=== PATIENT | male | born 1945 | race Caucasian/White ===

== ENCOUNTER 2021-11-10 07:44 | Outpatient (CLI) | payer BC, SELFPAY ==
[2021-11-10 10:20] LABS: Albumin* 4.4 g/dL (3.3-5.0); Chloride* 105 mmol/L (96-114); Potassium* 4.2 mmol/L (3.6-5.1); Sodium* 140 mmol/L (135-149)
[2021-11-10 10:22] LABS: Cholesterol* 131 mg/dL (90-199); Creatinine* 1.5 mg/dL (0.5-1.5); Estimated Glomerular Filt Rate 48 ml/min
[2021-11-10 10:23] LABS: Alanine Aminotransferase* 58 U/L (4-50); Alkaline Phosphatase* 79 U/L (40-150); Aspartate Amino Transferase* 60 U/L (12-35); Bilirubin Total* 0.6 mg/dL (0.1-1.5); Blood Urea Nitrogen* 29 mg/dL (7-30); Carbon Dioxide* 24 mmol/L (20-32); Glucose* 148 mg/dL (60-115); Total Protein* 6.9 g/dL (6.0-8.3); Triglycerides* 225 mg/dL (40-149)
[2021-11-10 10:24] LABS: Calcium* 9.3 mg/dL (8.4-10.6); HDL Cholesterol* 31 mg/dL (>=40); LDL Cholesterol Calculated 55 mg/dL (<100)
[2021-11-10 10:32] LABS: Creatinine Urine 166.5 mg/dL
[2021-11-10 10:36] LABS: Microalbumin Creatinine Ratio 10 mg/g (0-30); Microalbumin Urine 2 mg/dL
== END 2021-11-10 07:45 | disposition home or self-care (01) ==
LOC: NFLDREF 07:45
PROVIDERS: PCP Family Medicine; Visit Provider Family Medicine
DX: E11.9 Type 2 diabetes mellitus without complications (principal); E78.5 Hyperlipidemia, unspecified
CPT/HCPCS: 80053; 80061; 82043; 82570

== ENCOUNTER 2022-02-21 08:51 | Outpatient (CLI) | payer BC, SELFPAY ==
--- OUTSIDE RECORDS SUMMARY | 2022-02-21 09:18 | XMS_ITS | Continuity of Care Document ---
:1945 Author Organization [facility] Care Team Providers Name Role Phone [facility] Unavailable Unavailable Problems Problem Status Onset Date Classification Date Comments Sour ce Reported Influenza due to Active 02/14/2022 Ad ventist other identified [facility] Lauren influe [place] Acute Active 02/14/2022 Muslim respiratory [facility] S imi failure with [place] hypoxia Medications Medication Details Route Status Patient Ordering Order Source Instructions Provider Date Tamiflu 75 mg = 1 Cap, Active 60 oral capsule ORAL, BID, X 022 Christianity ist 5 Day(s), # Health 10 Cap, 0 Lauren Refill(s), [facility], Pharmacy: [id number], 175.24, cm, 02/14/22 17:56:00 PST, Height/Length (cm), 108, kg, 02/14/22 17:56:00 PST, Dose calculation weight (kg) NovoLOG FlexPen 0 Refill(s), Active 60 Maintenance 022 [facility] Semglee 70 mg Active 60 evenings, 0 022 Muslim Refill(s), [facility] Maintenance [place] chlorthalidone = 1 Tab, Active 60 25 mg oral ORAL, DAILY, 022 [facility]is t tablet 1/2 daily, 0 Health Refill(s), [facility] omeprazole 40 mg 1 Cap, ORAL, Active 60 oral delayed DAILY, 0 022 Muslim release capsule Refill(s), Healt h Maintenance [place] fluticasone 50 1 Puff, INH, Active 60 mcg/inh BID, 0 022 Muslim inhalation Refill(s), Health powder Maintenance [place] fenofibrate 145 = 1 Tab, Active 60 mg oral tablet ORAL, DAILY, 022 Adve ntist 0 Refill(s), [facility] Maintenance [place] A/Fish Oil [id number] 0 Refill(s), Active 60 u oral capsule Maintenance 022 Adven tist Health [place] albuterol 2.5 mg, INH, Active 60 [id number], 022 Muslim 0 Refill(s), Health Maintenance [place] Aspir 81 oral = 1 Tab, Active 60 enteric coated ORAL, DAILY, 022 Adve ntist tablet 0 Refill(s), Health Maintenance [place] atorvastatin 10 = 1 Tab, Active 60 mg oral tablet ORAL, DAILY, 022 Adve ntist 0 Refill(s), Health Maintenance [place] Results Order Name Results Value Reference Date Interpretation Comments Laeisha rce Range AutoDiff* Auto 90.5 % 49.4 - 12 H Muslim Neutrophil 72.6 /2021 Health Percent [place] AutoDiff* Auto 9.5 K/uL 2.0 - 6.4 02/16 H Muslim Neutrophil /2021 [facility] Absolute [place] AutoDiff* Auto 4.8 % 18.0 - 02/16 L Muslim Lymphocyte 40.0 /2021 Health Percent [place] AutoDiff* Auto 0.5 K/uL 1.5 - 3.0 02/16 L Muslim Lymphocyte /2021 [facility] [place] AutoDiff* Auto 4.7 % 4.9 - 10.1 02/16 L Muslim Monocyte /2021 Health Percent [place] AutoDiff* Auto 0.5 K/uL 0.3 - 0.8 02/16 NA Muslim Monocyte /2021 [facility] [place] AutoDiff* Auto 0.0 % 0.0 - 5.0 02/16 NA Muslim Eosinophil /2021 Health Percent [place] AutoDiff* Auto 0.0 K/uL 0.0 - 0.4 02/16 NA Muslim Eosinophil /2021 [facility] [place] AutoDiff* Auto 0.0 % 0.2 - 1.2 02/16 L Muslim Basophil Health Percent [place] AutoDiff* Auto 0.0 K/uL 0.0 - 0.1 02/16 NA Muslim Basophil /2021 [facility] [place] AutoDiff* Sex assigned Male 02/16 NA Muslim at Health [place] CBC WBC 10.5 K/uL 3.7 - 10.5 02/16 NA Muslim /2021 [facility] CBC RBC 3.90 M/uL 3.81 - 12 NA Muslim 5.87 /2021 [facility] CBC HGB 11.7 g/dL 12.0 - 12/07 L Muslim 17.9 /2021 [facility] CBC HCT 34.3 % 34.4 - 12 L Muslim 50.2 /2021 [facility] CBC MCV 88.0 fL 80.0 - 12 NA Muslim 99.8 /2021 [facility] CBC MCH 29.9 pg 26.7 - 12/ NA Muslim 34.0 /2021 [facility] CBC MCHC 33.9 g/dL 31.0 - 12 NA Muslim 37.0 /2021 [facility] CBC RDW 15.5 % 12.0 - 12 NA Muslim 15.8 /2021 [facility] CBC PLT 146 K/uL 139 - 422 12 NA Muslim /2021 [facility] CBC MPV 9.00 fL 6.84 - 12 NA Muslim 10.28 /2021 [facility] CBC Sex assigned Male 02/16 NA Muslim at /2021 [facility] CMP Sodium Level 132 MMOL/L 135 - 145 12/07 L Christianity ist /2021 [facility] CMP Potassium 4.1 MMOL/L 3.5 - 5.0 12 NA Muslim Level /2021 [facility] CMP Chloride 101 MMOL/L 101 - 111 12 NA Muslim Level /2021 [facility] CMP CO2/Carbon 22 MMOL/L 24 - 32 12/07 L Muslim Dioxide /2021 [facility] CMP Anion Gap 9.0 5.0 - 15.0 12 NA Muslim /2021 [facility] CMP Glucose, 316 MG/DL - <=200 12/07 H Muslim Random /2021 [facility] CMP BUN 34 MG/DL 8 - 20 12/07 H Muslim /2021 [facility] CMP Creatinine 1.39 MG/DL 0.60 - 12/07 H Muslim 1.30 /2021 [facility] BUN/Creat 24.5 12.0 - 12/07 H Muslim Ratio 20.0 [facility] CMP Osmolality, 284 mOsm/L 12/ NA Muslim Calculated [facility] Calcium 8.6 MG/DL 8.4 - 10.2 02/16 NA Muslim Level [facility] CMP Total 6.6 g/dL 6.4 - 8.3 02/16 NA Muslim Protein /2021 [facility] Albumin 3.5 g/dL 3.2 - 5.5 02/16 NA Muslim Level [facility] CMP Globulin 3.1 g/dL 1.5 - 3.5 02/16 NA Muslim Level /2021 [facility] A/G Ratio 1.1 1.1 - 2.2 02/16 NA Muslim [facility] ALP 35 IU/L 30 - 115 02/16 NA Muslim [facility] ALT 40 IU/L 5 - 36 / H Muslim /2021 [facility] AST 50 IU/L 10 - 42 02/16 H Muslim [facility] Bilirubin, 0.6 MG/DL 0.2 - 1.2 02/16 NA Muslim Total /2021 [facility] GFR - Non 53 >=61 02/16 L Units for Muslim mL/min/1.7 estimated GFR [facility] are [place] mL/min/1.73 [place] square metersInterpr etive note for GFR estimates: Normal: Greater than 60 mL/min/1.73 square meters. Chronic Kidney Disease: Less than 60 mL/min/1.73 square meters. Kidney failure: Less than 15 mL/min/1.73 square meters.Two GFR estimates are provided, one for patients who are (Est. GFR AA), one for all others (Est. GFR Non AA). Please correlate with patient's ethnicity.DIS CLAIMER:GFR estimate is calculated using the Modification of Diet in RenalDisease (MDRD) equation. This calculation is most accurate for GFR's of 60 mL/min/1.73 square meters or less. This calculation has been validated for ages 18 or greater, not for pediatric patients. CMP Sex assigned Male 02/16 NA Muslim at [facility] GFR - 64 >=61 02/16 NA Muslim mL/min/1.7 Health Haitian 3m2 [place] Mg Magnesium 2.2 MG/DL 1.7 - 2.8 02/16 NA Muslim Level /2021 [facility] [place] Mg Sex assigned Male 02/16 NA Muslim at /2021 [facility] [place] Phos Phosphorus 2.8 MG/DL 2.5 - 4.5 02/16 NA Muslim Level /2021 [facility] [place] Phos Sex assigned Male 02/16 NA Muslim at /2021 [facility] [place] AutoDiff* Auto 89.9 % 49.4 - 02/15 H Muslim Neutrophil 72.6 /2021 Health Percent [place] AutoDiff* Auto 8.5 K/uL 2.0 - 6.4 02/15 H Muslim Neutrophil /2021 [facility] [place] AutoDiff* Auto 5.1 % 18.0 - 02/15 L Muslim Lymphocyte 40.0 /2021 Health Percent [place] AutoDiff* Auto 0.5 K/uL 1.5 - 3.0 02/15 L Muslim Lymphocyte /2021 [facility] [place] AutoDiff* Auto 5.0 % 4.9 - 10.1 02/15 NA Muslim Monocyte /2021 Health Percent [place] AutoDiff* Auto 0.5 K/uL 0.3 - 0.8 02/15 NA Muslim Monocyte /2021 [facility] [place] AutoDiff* Auto 0.0 % 0.0 - 5.0 02/15 NA Muslim Eosinophil /2021 Health Percent [place] AutoDiff* Auto 0.0 K/uL 0.0 - 0.4 02/15 NA Muslim Eosinophil /2021 [facility] [place] AutoDiff* Auto 0.0 % 0.2 - 1.2 02/15 L Muslim Basophil /2021 Health Percent [place] AutoDiff* Auto 0.0 K/uL 0.0 - 0.1 02/15 NA Muslim Basophil /2021 [facility] [place] AutoDiff* Sex assigned Male 02/15 NA Muslim at /2021 [facility] [place] CBC WBC 9.4 K/uL 3.7 - 10.5 02/15 NA Muslim /2021 [facility] [place] CBC RBC 3.91 M/uL 3.81 - 02/15 NA Muslim 5.87 /2021 [facility] CBC HGB 11.6 g/dL 12.0 - 12/06 L Muslim 17.9 /2021 [facility] CBC HCT 34.9 % 34.4 - 12 NA Muslim 50.2 /2021 [facility] CBC MCV 89.4 fL 80.0 - 12 NA Muslim 99.8 /2021 [facility] CBC MCH 29.6 pg 26.7 - 12 NA Muslim 34.0 /2021 [facility] CBC MCHC 33.2 g/dL 31.0 - 12 NA Muslim 37.0 /2021 [facility] CBC RDW 15.5 % 12.0 - 12 NA Muslim 15.8 /2021 [facility] CBC PLT 123 K/uL 139 - 422 12/ L Muslim /2021 [facility] CBC MPV 9.30 fL 6.84 - 02/15 NA Muslim 10.28 /2021 [facility] CBC Sex assigned Male 02/15 NA Muslim at /2021 [facility] Sodium Level 136 MMOL/L 135 - 145 12 NA Christianity ist /2021 [facility] CMP Potassium 4.5 MMOL/L 3.5 - 5.0 12 NA Muslim Level /2021 [facility] CMP Chloride 104 MMOL/L 101 - 111 12 NA Muslim Level /2021 [facility] CMP CO2/Carbon 24 MMOL/L 24 - 32 02/15 NA Muslim Dioxide /2021 [facility] Anion Gap 8.0 5.0 - 15.0 12 NA Muslim /2021 [facility] CMP Glucose, 302 MG/DL - <=200 12/ H Muslim Random /2021 [facility] CMP BUN 27 MG/DL 8 - 20 12/06 H Muslim /2021 [facility] CMP Creatinine 1.59 MG/DL 0.60 - 12/ H Muslim 1.30 /2021 [facility] BUN/Creat 17.0 12.0 - 12 NA Muslim Ratio 20.0 /2021 [facility] CMP Osmolality, 288 mOsm/L 12 NA Muslim Calculated /2021 [facility] CMP Calcium 8.7 MG/DL 8.4 - 10.2 02/15 NA Muslim Level /2021 [facility] CMP Total 6.6 g/dL 6.4 - 8.3 02/15 NA Muslim Protein [facility] CMP Albumin 3.6 g/dL 3.2 - 5.5 02/15 NA Muslim Level /2021 [facility] CMP Globulin 3.0 g/dL 1.5 - 3.5 02/15 NA Muslim Level [facility] CMP A/G Ratio 1.2 1.1 - 2.2 02/15 NA Muslim [facility] CMP ALP 36 IU/L 30 - 115 02/15 NA Muslim [facility] ALT 44 IU/L 5 - 36 / H Muslim [facility] AST 58 IU/L 10 - 42 02/15 H Muslim [facility] CMP Bilirubin, 0.5 MG/DL 0.2 - 1.2 02/15 NA Muslim Total [facility] GFR - Non 45 >=61 / L Units for Muslim mL/min/1. estimated GFR [place] [address] are Lauren mL/min/1.73 [place] square metersInterpr etive note for GFR estimates: Normal: Greater than 60 mL/min/1.73 square meters. Chronic Kidney Disease: Less than 60 mL/min/1.73 square meters. Kidney failure: Less than 15 mL/min/1.73 square meters.Two GFR estimates are provided, one for patients who are (Est. GFR AA), one for all others (Est. GFR Non AA). Please correlate with patient's ethnicity.DIS CLAIMER:GFR estimate is calculated using the Modification of Diet in RenalDisease (MDRD) equation. This calculation is most accurate for GFR's of 60 mL/min/1.73 square meters or less. This calculation has been validated for ages 18 or greater, not for pediatric patients. CMP Sex assigned Male 02/15 NA Muslim at [facility] GFR - 55 >=61 12/06 L Muslim mL/min/1.[address] Mg Magnesium 2.0 MG/DL 1.7 - 2.8 02/15 NA Muslim Level /2021 [facility] Mg Sex assigned Male 02/15 NA Muslim at [facility] Phos Phosphorus 2.4 MG/DL 2.5 - 4.5 02/15 L Muslim Level [facility] Phos Sex assigned Male 02/15 NA Muslim at [facility] Lactic Lactic Acid 2.3 MMOL/L 0.5 - 2.2 12/[address] Level /2021 [facility] Lactic Sex assigned Male 02/15 NA Muslim at [facility] Lactic Lactic Acid 2.8 MMOL/L 0.5 - 2.2 12/[address] Level /2021 [facility] Lactic Sex assigned Male 02/14 NA Muslim at [facility] POC G3+ ABG - pH 7.441 7.350 - 02/14 NA Device Code: Muslim Art 7.450 [facility] EDFacility: [place] [address]Location: [place] [address] ERSerial Number: [id number] Code: [id number] Name: Carroll TerrellTiesha e Lot: [id number] POC G3+ ABG - pO2 71 mmHg 80 - 105 /05 L Muslim Art [facility] POC G3+ ABG - pCO2 33 mmHg 35 - 45 /05 L Muslim Art [facility] POC G3+ ABG - HCO3 22.4 MEQ/L 22.0 - 02/14 NA Muslim Art 26.0 [facility] POC G3+ ABG - TCO2 23 MEQ/L 23 - 27 05 NA Muslim Art /2021 [facility] POC G3+ ABG - BE -2.0 MEQ/L -2.0 - 3.0 02/14 NA Muslim Art /2021 [facility] POC G3+ ABG - O2 Sat 95.0 % 95.0 - 02/14 NA Muslim Art 99.0 [facility] POC G3+ BG - PASS 02/14 NA Muslim Art Modified Health Juan Test [place] POC G3+ BG - Site RRAD 02/14 NA Muslim Art [facility] POC G3+ FIO2 28 % 02/14 NA Muslim Art /2021 [facility] [place] POC G3+ BG - O2 NC 02/14 NA Muslim Art Device /2021 [facility] POC G3+ BG - Oxygen 2.0 L/min 02/14 NA Muslim Art Flow /2021 [facility] POC G3+ BG - Patient 22 br/min 02/14 NA Muslim Art Rate /2021 [facility] POC G3+ BG - Pulse 94 % 02/14 NA Muslim Art Oximetry /2021 [facility] POC G3+ Sex assigned Male 02/14 NA Muslim Art at /2021 [facility] CRP CRP 12.60 0.00 - 12 H Muslim C-Reactive MG/DL 0.90 [facility] CRP Sex assigned Male 02/14 NA Muslim at [facility] DDimerQnt D-Dimer, Qnt 0.45 ZZ - <=0.50 02/14 NA Increases in Ad ventist /2021 D-dimer Health [facility] thromboemboli c events can be variable due to localization, extension and age of the thrombus. Therefore, a thromboemboli c event cannot be excluded with certainty solely based on a D-dimer concentration being below the clinical cutoff or within the reference range. Results for D-dimer determination s should, therefore, always be evaluated in conjunction with clinical and other laboratory findings, with additional studies if clinically indicated.In studies of patients with DVT and PE performed elsewhere, the clinical cutoff for excluding thromboemboli c event was a D-dimer value >0.5 mg/L.D-Dimer concentration increases with age and thus, the specificity for DVT and PE exclusion decreases with age. For DVT or PE exclusion, in addition to clinical pretest probability, age adjusted D-Dimer cutoffs are suggested for patients more than 50 years of age.Age adjusted D-Dimer cutoff value (Calculated as follows: age[years] X 12/999) results in equivalent outcomes and no additional false negative findings.Age Cutoff 51 0.51mg/L FEU 55 0.55mg/L FEU 60 0.60mg/L FEU 65 0.65mg/L FEU 70 0.70mg/L FEU Etc. DDimerQnt Sex assigned Male 02/14 NA Muslim at [facility] [place] PCT Procalcitoni 0.47 NG/ML - <=0.50 02/14 NA Christianity ist n Level /2021 [facility] [place] PCT Sex assigned Male 02/14 NA Muslim at /2021 [facility] [place] AutoDiff* Auto 85.8 % 49.4 - 02/14 H Muslim Neutrophil 72.6 /2021 Health Percent [place] AutoDiff* Auto 7.2 K/uL 2.0 - 6.4 02/14 H Muslim Neutrophil /2021 [facility] Absolute [place] AutoDiff* Auto 3.8 % 18.0 - 02/14 L Muslim Lymphocyte 40.0 /2021 Health Percent [place] AutoDiff* Auto 0.3 K/uL 1.5 - 3.0 02/14 L Muslim Lymphocyte /2021 [facility] [place] AutoDiff* Auto 9.4 % 4.9 - 10.1 02/14 NA Muslim Monocyte /2021 Health Percent [place] AutoDiff* Auto 0.8 K/uL 0.3 - 0.8 02/14 NA Muslim Monocyte /2021 [facility] [place] AutoDiff* Auto 0.5 % 0.0 - 5.0 02/14 NA Muslim Eosinophil /2021 Health Percent [place] AutoDiff* Auto 0.0 K/uL 0.0 - 0.4 02/14 NA Muslim Eosinophil /2021 [facility] [place] AutoDiff* Auto 0.5 % 0.2 - 1.2 02/14 NA Muslim Basophil /2021 Health Percent [place] AutoDiff* Auto 0.0 K/uL 0.0 - 0.1 02/14 NA Muslim Basophil /2021 [facility] [place] AutoDiff* Sex assigned Male 02/14 NA Muslim at /2021 [facility] [place] CBC WBC 8.4 K/uL 3.7 - 10.5 02/14 NA Muslim /2021 [facility] [place] CBC RBC 4.24 M/uL 3.81 - 02/14 NA Muslim 5.87 /2021 [facility] [place] CBC HGB 12.6 g/dL 12.0 - 02/14 NA Muslim 17.9 /2021 [facility] [place] CBC HCT 37.7 % 34.4 - 02/14 NA Muslim 50.2 /2021 [facility] CBC MCV 88.9 fL 80.0 - 12 NA Muslim 99.8 /2021 [facility] CBC MCH 29.7 pg 26.7 - 12/ NA Muslim 34.0 /2021 [facility] CBC MCHC 33.3 g/dL 31.0 - 12 NA Muslim 37.0 /2021 [facility] CBC RDW 15.3 % 12.0 - 12 NA Muslim 15.8 /2021 [facility] CBC PLT 138 K/uL 139 - 422 12/05 L Muslim /2021 [facility] CBC MPV 8.60 fL 6.84 - 12 NA Muslim 10.28 /2021 [facility] CBC Sex assigned Male 02/14 NA Muslim at /2021 [facility] Sodium Level 134 MMOL/L 135 - 145 12/05 L Christianity ist /2021 [facility] Potassium 3.6 MMOL/L 3.5 - 5.0 1205 NA Muslim Level /2021 [facility] Chloride 100 MMOL/L 101 - 111 12/05 L Muslim Level /2021 [facility] CMP CO2/Carbon 25 MMOL/L 24 - 32 12/05 NA Muslim Dioxide /2021 [facility] Anion Gap 9.0 5.0 - 15.0 12/05 NA Muslim /2021 [facility] Glucose, 125 MG/DL - <=200 12/05 NA Muslim Random /2021 [facility] BUN 19 MG/DL 8 - 20 12/05 NA Muslim /2021 [facility] Creatinine 1.52 MG/DL 0.60 - 12/05 H Muslim 1.30 /2021 [facility] BUN/Creat 12.5 12.0 - 12 NA Muslim Ratio 20.0 /2021 [facility] CMP Osmolality, 272 mOsm/L 12/05 NA Muslim Calculated /2021 [facility] CMP Calcium 9.1 MG/DL 8.4 - 10.2 1205 NA Muslim Level /2021 [facility] CMP Total 7.2 g/dL 6.4 - 8.3 1205 NA Muslim Protein /2021 [facility] CMP Albumin 4.1 g/dL 3.2 - 5.5 02/14 NA Muslim Level /2021 [facility] CMP Globulin 3.1 g/dL 1.5 - 3.5 02/14 NA Muslim Level /2021 [facility] CMP A/G Ratio 1.3 1.1 - 2.2 02/14 NA Muslim /2021 [facility] CMP ALP 45 IU/L 30 - 115 / NA Muslim /2021 [facility] CMP ALT 53 IU/L 5 - 36 12/05 H Muslim /2021 [facility] CMP AST 79 IU/L 10 - 42 12/05 H Muslim /2021 [facility] CMP Bilirubin, 0.8 MG/DL 0.2 - 1.2 02/14 NA Muslim Total [facility] CMP GFR - Non 48 >=61 12/05 L Units for Muslim mL/min/1. estimated GFR [place] [address] are [place] mL/min/1.73 [place] square metersInterpr etive note for GFR estimates: Normal: Greater than 60 mL/min/1.73 square meters. Chronic Kidney Disease: Less than 60 mL/min/1.73 square meters. Kidney failure: Less than 15 mL/min/1.73 square meters.Two GFR estimates are provided, one for patients who are (Est. GFR AA), one for all others (Est. GFR Non AA). Please correlate with patient's ethnicity.DIS CLAIMER:GFR estimate is calculated using the Modification of Diet in RenalDisease (MDRD) equation. This calculation is most accurate for GFR's of 60 mL/min/1.73 square meters or less. This calculation has been validated for ages 18 or greater, not for pediatric patients. CMP Sex assigned Male 02/14 NA Muslim at /2021 [facility] CMP GFR - 58 >=61 12/05 L Muslim mL/min/1.[address] Lactic WB Lactic Acid 2.17 0.56 - 12 H Muslim WB MMOL/L 1.39 [facility] Lactic WB Sex assigned Male 02/14 NA Muslim at [facility] Trop Troponin I 0.03 NG/ML 0.00 - 02/14 NA 1. Less than Adven tist 0.04 0.04 ng/mL is Health within normal [facility] limits.2. Any [place] cardiac troponin value at or above the 99% upper reference limit of 0.04 ng/mL is an indicator of myocardial damage.3. Serially testing at baseline, 3 and 6 hours is advisable, particularly with low level troponin elevations, for clinical distinction between acute myocardial infarction and other causes of myocardial damage. Trop Sex assigned Male 02/14 NA Muslim at /2021 [facility] C Blood C Blood
<b>Fi 02/14 Performed at: [facility] nal:</b><b [facility] r/>No Health [facility] growth at [facility] 5 Laboratory, days.
[address]
<b>[address], [place] at [place], [place] :</b> [phone],
Male< Laboratory br/> Director: Doc Jones M.D. Culture No growth 02/14 60 Blood at 2 days. /2021 [facility] [id number] SARS-CoV-2 Nasopharyn 02/14 NA [facility] Source geal [facility] [id number] Influenza A Detected Not 02/14 C NOTIFIED TO Meghan Gardner Formerly [facility] Deisy GROVE RN AT [facility] 02/14/2022 [place] 12:13 BY LIVIA MONTALVO.This test is performed using a real-time PCR assay with higher sensitivity and specificity compared to rapid antigen tests. False negative results can occur, especially in patients with lower respiratory tract disease. Per CDC recommendatio n, hospitalized patients with an initial negative influenza PCR test in whom no other etiology can be identified should have further specimens collected for influenza testing and remain on antiviral therapy if clinically appropriate.T hese are the possible results and its corresponding meaning:Influ esmer A Not Detected = Negative test for Influenza A (no Influenza A RNA detected)Infl uenza A Detected = Positive test for Influenza A (Influenza A RNA present)Influ esmer B Not Detected = Negative test for Influenza B (no Influenza A RNA detected)Infl uenza B Detected = Positive test for Influenza B (Influenza B RNA present)Assay Indeterminate = Presence or absence of Influenza A or Influenza B cannot be determined. Re-collection is recommended if clinically indicated [id number] Influenza B Not Not 02/14 NA Assay Muslim Agn Detected Detected performed by [facility] Molecular RT-PCR [place] [id number] SARS-CoV-2 Not Not 02/14 NA Assay Muslim Molecular Detected Detected /2021 performed by [employer] RT-PCRThis [place] test was [place] performed under U.S. Food and Drug Administratio n (FDA) Emergency use Authorization (EUA). This test has been validated but the [facility] review of this validation is pending. [id number] SARS-CoV-2 No 02/14 NA Muslim First test? Health [place] [id number] Health Care No 02/14 NA Muslim Worker? [facility] [place] [id number] SARS-CoV-2 No 02/14 NA Muslim Is the /2021 Health Patient [place] Hospitalized [place] ? [id number] SARS-CoV-2 No 02/14 NA Muslim Is the Health Patient in [facility] ICU? [place] [id number] Patient From No 02/14 NA [facility] t Congregate /2021 Health Area? [place] [id number] Symptomatic Yes 02/14 NA Muslim per CDC? [facility] [place] [id number] SARS-CoV-2 No 02/14 NA Muslim Is the Health Patient [place] ? [place] [id number] Sex assigned Male 02/14 NA Adventis t at /2021 [facility] RSV Molc Respiratory Not Not 02/14 This test is Christianity ist Syncytial Detected Detected performed Health Virus using [place] Molecular real-time PCR [place] with higher sensitivity and specificity compared to rapid antigen tests. RT-PCR testing is recommended by the CDC for evaluation of suspected RSV in older children and adults due to enhanced sensitivity and specificity of the assay.These are the possible results and its corresponding meaning:RSV Not Detected = Negative test for RSV (no RSV RNA detected)RSV Detected = Positive test for RSV (RSV RNA present)Assay Indeterminate = Presence or absence of RSV cannot be determined. Re-collection is recommended if clinically indicated. RSV Molc Sex assigned Male 02/14 NA Muslim at /2021 [facility] [place] Diagnostic Reports Report Value Date Source Chest 1 Vw Portable INDICATION: Shortness of Breath 02/14/2022 [facility] COMPARISON: None. FINDINGS: The lungs are wel l expanded and clear, and the cardiac silhouette and pulmonary vessels appear normal. There is no pulmonary vascular redistribution, pleural effusion, or pneumothorax seen. Signed by: Sean Beverly MD on 02/14/2022 12:11 P M Consultation Notes Results Value Date Source Hospitalist Progress 02/16/2022 60 [facility] ObjectVideo Note Patient: ROGER FREDERICK FIN: [id number] [place] Age: 76 years Legal Sex: Male : 1945 Author: MD Christopher, Wilfredo Basic Information Patient was admitted for respiratory failure 2/2 influenza A Review of Systems Constitutional: Negative. Respiratory: Shortness of breath. Cardiovascular: Negative. Gastrointestinal: Negative. Musculoskeletal: Negative. Integumentary: Negative. Neurologic: Negative. Psychiatric: Negative. Health Status Allergies: Allergic Reactions (Selected) No Known Medication Allergies, Allergies (1) Active Severity Reaction No Known Medication Allergies None Documented Current medications: (Selected) Inpatient Medications Ordered Atrovent: 0.5 mg, INH, Q2H, PRN, Wheezing, NEB A MP, 02/14/22 12:54:00 PST Benadryl: 25 mg, IV PUSH, Q6H, PRN, Itching, INJ , 02/14/22 12:54:00 PST Benadryl: 25 mg, IV PUSH, QBedtime, PRN, Insomni a, INJ, 02/14/22 12:54:00 PST Cepacol Lozenges: = 1 Lozeng e, ORAL, Q4H, PRN, Sore Throat, KATELYN, 02/15/22 17:53:00 PST Dextrose 50% Inj 50 mL: = 25 mL, IV PUSH, As directed, PRN, Blood Glucose, INJ, 02/14/22 12:54:00 PST Dextrose 50% Inj 50 mL: = 50 mL, IV PUSH, As directed, PRN, Blood Glucose, INJ, 02/14/22 12:54:00 PST Dulcolax Laxative: 10 mg, RE CTAL, DAILY, PRN, Constipation, SUPP, 02/14/22 12:54:00 PST K-Phos Neutral: = 1 Tab, ORA L, As directed, PRN, Phosphorus Replacement, TAB, 02/14/22 12:52:00 PST Lovenox: 40 mg, SUBQ, DAILY, Indication = VTE Prophylaxis, INJ, 02/14/22 18:00:00 PST Protonix: 40 mg, ORAL, DAILY, EC TAB, 02/14/22 1 2:54:00 PST SOLU-Medrol: 40 mg, IV PUSH, Q6H, INJ, 02/14/22 18:00:00 PST Tamiflu: 75 mg, ORAL, BID, ORAL SUSP, 02/14/22 2 1:00:00 PST Tylenol: 650 mg, ORAL, Q6H, PRN, Other (see comment), TAB, 02/14/22 12:54:00 PST Tylenol: 650 mg, RECTAL, Q6H , PRN, Other (see comment), SUPP, 02/14/22 12:54:00 PST Zofran: 4 mg, IV PUSH, Q4H, PRN, Nausea/Vomiting , INJ, 02/14/22 12:54:00 PST albuterol-ipratopium 3-0.5 m g/3 mL inh soln (DuoNeb): = 3 mL, INH, QID, NEB AMP, 02/14/22 17:00:00 PST albuterol: 1.25 mg, INH, Q2H, PRN, Wheezing, NEB AMP, 02/14/22 12:54:00 PST aspirin: 81 mg, ORAL, DAILY, EC TAB, 02/14/22 12 :52:00 PST atorvastatin: 10 mg, ORAL, QBedtime, TAB, 21:00:00 PST chlorthalidone 25 mg oral ta blet: chlorthalidone 25 mg oral tablet, = 0.5 Tab, ORAL, DAILY, 02/14/22 12:52:00 PST cloNIDine: 0.1 mg, ORAL, Q6H , PRN, Other (see comment), TAB, 02/14/22 12:54:00 PST docusate-senna 50 mg-8.6 mg oral tablet: = 1 Tab, ORAL, BID, TAB, 02/14/22 21:00:00 PST fenofibrate: 145 mg, ORAL, DAILY, TAB, 02/14/22 12:52:00 PST fluticasone 100 mcg inhalati on powder: = 1 Puff, INH, DAILY, POWDER, 02/14/22 12:52:00 PST glucagon: 1 mg, SUBQ, As dir ected, PRN, Blood Glucose, INJ, 02/14/22 12:54:00 PST insulin lispro Correction Sc julia Med (Body wt 70-100kg): correction scale, SUBQ, AC&Bed, 02/14/22 21:00:00 PST magnesium oxide: 400 mg, ORA L, BID, PRN, Magnesium Replacement, TAB, 02/14/22 12:51:00 PST magnesium sulfate 2 g in SWF I 50 mL: 2 gm = 50 mL, IVPB, [id number], PRN, Magnesium Replacement, IV SOLN, 02/14/22 12:51:00 PST, 50 mL/hr, 60 min potassium bicarbonate-citric acid: 20 mEq, ORAL, As directed, PRN, Potassium Replacement, EFFER TAB, 02/14/22 12:51:00 PST potassium bicarbonate-citric acid: 40 mEq, ORAL, As directed, PRN, Potassium Replacement, EFFER TAB, 02/14/22 12:51:00 PST potassium chloride 10 mEq in SWFI 100 mL: 10 mEq = 100 mL, IVPB, As directed, PRN, Potassium Replacement, IV SOLN, 02/14/22 12:51:00 PST, 100 mL/hr, 60 min sodium chloride 0.9% 1,000 m L: 1,000 mL, IV, Routine, 02/14/22 12:54:00 PST, 70 mL/hr, 14.3 hr, Order Weight 108, kg Documented Medications Documented A/Fish Oil 03035 u oral capsule: 0 Refill(s), Ma intenance Aspir 81 oral enteric coated tablet: = 1 Tab, ORAL, DAILY, 0 Refill(s), Maintenance NovoLOG FlexPen: 0 Refill(s), Maintenance Semglee: 70 mg evenings, 0 Refill(s), Maintenanc e albuterol: 2.5 mg, INH, [id number], 0 Refill(s ), Maintenance atorvastatin 10 mg oral tablet: = 1 Tab, ORAL, DAILY, 0 Refill(s), Maintenance chlorthalidone 25 mg oral ta blet: = 1 Tab, ORAL, DAILY, 1/2 daily, 0 Refill(s), Maintenance fenofibrate 145 mg oral tablet: = 1 Tab, ORAL, DAILY, 0 Refill(s), Maintenance fluticasone 50 mcg/inh inhal ation powder: 1 Puff, INH, BID, 0 Refill(s), Maintenance omeprazole 40 mg oral delaye d release capsule: 1 Cap, ORAL, DAILY, 0 Refill(s), Maintenance, Medications (32) Active Scheduled: (12) albuterol-ipratrop 3-0.5 mg/3 mL Neb Soln 3 mL, INH, QID aspirin 81 mg EC Tab 81 mg 1 EC_Tab, ORAL, DAILY atorvastatin 10 mg Tab 10 mg 1 Tab, ORAL, QBedti me chlorthalidone 25 mg oral tablet 0.5 Tab, ORAL, DAILY docusate-senna 50-8.6 mg Tab 1 Tab, ORAL, BID enoxaparin 40 mg/ 0.4 mL Inj Syringe 40 mg 0.4 m L, SUBQ, DAILY Fenofibrate 145 mg Tab 145 mg 1 Tab, ORAL, DAILY fluticasone furoate 100 mcg/inh 1 Puff, INH, NOEL LY insulin lispro (Admelog) 100 units/mL, 3 mL MDV correction scale, SUBQ, AC&Bed methylPRED sod succ 40 mg/mL Inj 40 mg 1 mL, IV PUSH, Q6H oseltamivir 6 mg/mL Oral Liq 1 mL 75 mg 12.5 mL, ORAL, BID pantoprazole 40 mg EC Tab 40 mg 1 Tab, ORAL, NOEL LY Continuous: (1) sodium chloride 0.9% 1,000 mL 1,000 mL, IV, 70 m L/hr PRN: (19) acetaminophen 325 mg Tab 650 mg 2 ea, ORAL, Q6H acetaminophen 650 mg Supp 650 mg 1 Supp, RECTAL, Q6H albuterol 1.25 mg/3 mL (0.042%) Inh Soln 1.25 mg 3 mL, INH, Q2H benzocaine-cetylpyridinium topical 1 Lozenge, OR AL, Q4H bisacodyl 10 mg Supp 10 mg 1 Supp, RECTAL, DAILY cloNIDine 0.1 mg Tab 0.1 mg 1 Tab, ORAL, Q6H Dextrose 50% Inj 50 mL Syr 25 mL, IV PUSH, As di rected Dextrose 50% Inj 50 mL Syr 50 mL, IV PUSH, As di rected diphenhydrAMINE 50 mg/mL Inj 1 mL SDV 25 mg 0.5 mL, IV PUSH, Q6H diphenhydrAMINE 50 mg/mL Inj 1 mL SDV 25 mg 0.5 mL, IV PUSH, QBedtime glucagon 1 mg Inj SDV 1 mg, SUBQ, As directed ipratropium 0.5mg/2.5 mL (0.02%) Neb Amp 0.5 mg 2.5 mL, INH, Q2H K-Bicarb- citric acid 20 mEq Effer Tab 20 mEq 1 Tab, ORAL, As directed K-Bicarb- citric acid 20 mEq Effer Tab 40 mEq 2 Tab, ORAL, As directed K-phos neutral Tab 1 Tab, ORAL, As directed magnesium Oxide 400 mg Tab 400 mg 1 Tab, ORAL, B ID magnesium sulfate / SWFI 2 gm 50 mL, IVPB, Q12H- Interval ondansetron 2 mg/mL, 2 mL Inj 4 mg 2 mL, IV PUSH , Q4H potassium chloride 10 mEq 100 mL, IVPB, As direc josias Problem list: All Problems Current smoker / [id number] / Confirmed Ineffective breathing pattern / [id number] / Provi sional Manage infection control / [id number] / Provisio nal Physical Examination Vital Signs 02/16/2022 10:25 PST Pulse Oximetry 94 % Pulse oximetry method Continuous Oxygen delivery Room air BP location Left arm 02/16/2022 08:47 PST Peripheral Pulse Rate 88 bp m Normal Pulse Oximetry 95 % Oxygen delivery Room air Oxygen %/FiO2 21 % Normal 02/16/2022 08:37 PST Peripheral Pulse Rate 88 bp m Normal Respiratory rate 20 br/min Normal Pulse Oximetry 95 % Oxygen %/FiO2 21 % Normal 02/16/2022 08:00 PST Temperature (F) 98.0 DegF N ormal Peripheral Pulse Rate 80 bpm Normal Respiratory rate 18 br/min Normal Systolic BP 150 mmHg HI Diastolic BP 78 mmHg Normal Pulse Oximetry 98 % Pulse oximetry method Continuous Oxygen delivery In Error (In Error) Activity with SPO2 monitoring At rest Oxygen flow In Error L/min Normal (In Error) Temp site Oral BP position Lying BP location Left arm Blood Pressure Method Automatic Peripheral pulse site Non-invasive BP device 02/16/2022 05:43 PST Temperature (F) 97.4 DegF N ormal Peripheral Pulse Rate 82 bpm Normal Respiratory rate 20 br/min Normal Systolic BP 153 mmHg HI Diastolic BP 91 mmHg HI Pulse Oximetry 98 % Pulse oximetry method Continuous Oxygen delivery Nasal cannula Temp site Oral BP position Lying BP location Left arm Blood Pressure Method Automatic Peripheral pulse site Non-invasive BP device 02/16/2022 00:53 PST Temperature (F) 97.5 DegF N ormal Peripheral Pulse Rate 87 bpm Normal Respiratory rate 20 br/min Normal Systolic BP 151 mmHg HI Diastolic BP 80 mmHg Normal Pulse Oximetry 97 % Pulse oximetry method Continuous Oxygen delivery Nasal cannula Activity with SPO2 monitoring At rest Oxygen flow 2 L/min Temp site Oral BP position Lying BP location Left arm Blood Pressure Method Automatic Peripheral pulse site Non-invasive BP device 02/15/2022 20:49 PST Temperature (F) 98.6 DegF N ormal Peripheral Pulse Rate 96 bpm Normal Respiratory rate 20 br/min Normal Systolic BP 147 mmHg HI Diastolic BP 78 mmHg Normal Pulse Oximetry 96 % Pulse oximetry method Continuous Oxygen delivery Nasal cannula Activity with SPO2 monitoring At rest Oxygen flow 2 L/min Temp site Oral BP position Lying BP location Left arm Blood Pressure Method Automatic Peripheral pulse site Non-invasive BP device 02/15/2022 20:28 PST Peripheral Pulse Rate 96 bp m Normal Respiratory rate 20 br/min Normal Pulse Oximetry 97 % Oxygen flow 2 L/min Peripheral pulse site Pulse oximetry device 02/15/2022 20:09 PST Peripheral Pulse Rate 91 bp m Normal Respiratory rate 22 br/min HI Pulse Oximetry 96 % Oxygen flow 2 L/min Peripheral pulse site Pulse oximetry device 02/15/2022 16:28 PST Peripheral Pulse Rate 84 bp m Normal Respiratory rate 18 br/min Normal 02/15/2022 16:18 PST Peripheral Pulse Rate 82 bp m Normal Respiratory rate 18 br/min Normal 02/15/2022 15:48 PST Temperature (F) 98.0 DegF N ormal Peripheral Pulse Rate 93 bpm Normal Respiratory rate 16 br/min Normal Systolic BP 142 mmHg HI Diastolic BP 76 mmHg Normal Pulse Oximetry 97 % Pulse oximetry method Continuous Oxygen delivery Nasal cannula Activity with SPO2 monitoring At rest Oxygen flow 2 L/min Temp site Oral BP position Sitting BP location Left arm Blood Pressure Method Automatic Peripheral pulse site Non-invasive BP device 02/15/2022 11:39 PST Peripheral Pulse Rate 84 bp m Normal Respiratory rate 18 br/min Normal 02/15/2022 11:29 PST Peripheral Pulse Rate 82 bp m Normal Respiratory rate 18 br/min Normal Pulse Oximetry 95 % Oxygen delivery Nasal cannula Oxygen flow 2 L/min 02/15/2022 11:21 PST Temperature (F) 98.4 DegF N ormal Peripheral Pulse Rate 87 bpm Normal Respiratory rate 15 br/min Normal Systolic BP 145 mmHg HI Diastolic BP 76 mmHg Normal Pulse Oximetry 97 % Pulse oximetry method Continuous Oxygen delivery Nasal cannula Activity with SPO2 monitoring At rest Oxygen flow 2 L/min Temp site Oral BP position Sitting BP location Right arm Blood Pressure Method Automatic Peripheral pulse site Non-invasive BP device 02/15/2022 10:59 PST Pulse Oximetry 93 % Pulse oximetry method Continuous Oxygen delivery Nasal cannula Activity with SPO2 monitoring At rest Oxygen flow 2 L/min BP location Right arm 02/15/2022 09:00 PST Pulse Oximetry 88 % <LLOW Pulse oximetry method Continuous Oxygen delivery Room air BP position Standing BP location Right arm 02/15/2022 08:00 PST Oxygen delivery Nasal cannu la Oxygen flow 2 L/min 02/15/2022 07:50 PST Temperature (F) 97.9 DegF N ormal Peripheral Pulse Rate 90 bpm Normal Respiratory rate 17 br/min Normal Systolic BP 145 mmHg HI Diastolic BP 77 mmHg Normal Pulse Oximetry 96 % Pulse oximetry method Continuous Oxygen delivery Nasal cannula Activity with SPO2 monitoring At rest Oxygen flow 2 L/min Temp site Oral BP position Lying BP location Right arm Blood Pressure Method Automatic Peripheral pulse site Non-invasive BP device 02/15/2022 07:44 PST Peripheral Pulse Rate 82 bp m Normal Respiratory rate 18 br/min Normal 02/15/2022 07:35 PST Pulse Oximetry 95 % Oxygen delivery Room air 02/15/2022 07:34 PST Peripheral Pulse Rate 80 bp m Normal Respiratory rate 18 br/min Normal 02/15/2022 05:13 PST Temperature (F) 98 DegF Nor mal Peripheral Pulse Rate 76 bpm Normal Respiratory rate 18 br/min Normal Systolic BP 132 mmHg Normal Diastolic BP 74 mmHg Normal Pulse Oximetry 94 % Pulse oximetry method Continuous Oxygen delivery CPAP/NIPPV Activity with SPO2 monitoring At rest Oxygen flow 2 L/min Temp site Oral BP position Lying BP location Right arm Blood Pressure Method Automatic Peripheral pulse site Non-invasive BP device 02/15/2022 00:40 PST Temperature (F) 97.7 DegF N ormal Peripheral Pulse Rate 71 bpm Normal Respiratory rate 20 br/min Normal Systolic BP 154 mmHg HI Diastolic BP 81 mmHg Normal Pulse Oximetry 94 % Pulse oximetry method Continuous Oxygen delivery CPAP/NIPPV (Modified) Activity with SPO2 monitoring At rest Oxygen flow 2 L/min Temp site Oral BP position Lying BP location Right arm Peripheral pulse site Non-invasive BP device Vital Signs (last 24 hrs)___ __ Last Charted Minimum Maximum Temp(?F) 98.0 (FEB 16 08:00 PST) 97.4 (FEB 16 05:43 PST) 98.6 (FEB 15 20:49 PST) Heart Rate 88 (FEB 16 08:47 PST) 80 (FEB 16 08:0 0 PST) 96 (FEB 15 20:28 PST) Resp Rate 20 (FEB 16 08:37 PST) 15 (FEB 15 11:21 PST) H 22 (FEB 15 20:09 PST) SBP H 150 (FEB 16 08:00 PST) H 142 (FEB 15 15:48 PST) H 153 (FEB 16 05:43 PST) DBP 78 (FEB 16 08:00 PST) 76 (FEB 15 11:21 PST) H 91 (FEB 16 05:43 PST) SpO2 94 (FEB 16 10:25 PST) 93 (FEB 15 10:59 PST) 98 (FEB 16 05:43 PST) OXYFIO2 21 (FEB 16 08:47 PST) 21 (FEB 16 08:[address]) 21 (FEB 16 08:37 PST) OXYFLOW 2 (FEB 16 00:53 PST) 2 (FEB 15 10:59 PST ) 2 (FEB 15 10:59 PST) OXYDELIVERY Room air Nasal Nasal (FEB 16 10:25 PST) (FEB 15 10:59 PST) (FEB 15 0:59 PST) Measurements from flowsheet : Measurements 02/16/2022 06:00 PST Weight (kg) 108.5 kg Weight measured method Bed scale 02/15/2022 06:00 PST Weight (kg) 109.9 kg Weight measured method Bed scale General: No acute distress. Neck: Supple. Respiratory: Breath sounds are equal. Cardiovascular: Normal rate, Regular rhythm, No murmur. Gastrointestinal: Soft, Non-tender, Non-distende d. Genitourinary: No costovertebral angle tendernes s. Musculoskeletal Normal range of motion. Neurologic: No focal deficits. Psychiatric: Cooperative. Review / Management Results review: Labs (Last four charted values) WBC 10.5 (FEB 16) 9.4 (FEB 15) 8.4 (FEB 14) Hgb L 11.7 (FEB 16) L 11.6 (FEB 15) 12.6 (FEB 14 ) Hct L 34.3 (FEB 16) 34.9 (FEB 15) 37.7 (FEB 14) Plt 146 (FEB 16) L 123 (FEB 15) L 138 (FEB 14) Na L 132 (FEB 16) 136 (FEB 15) L 134 (FEB 14) K 4.1 (FEB 16) 4.5 (FEB 15) 3.6 (FEB 14) CO2 L 22 (FEB 16) 24 (FEB 15) 25 (FEB 14) Cl 101 (FEB 16) 104 (FEB 15) L 100 (FEB 14) Cr H 1.39 (FEB 16) H 1.59 (FEB 15) H 1.52 (Feb) BUN H 34 (FEB 16) H 27 (FEB 15) 19 (FEB 14) Glucose Random H 316 (FEB 16) H 302 (FEB 15) 125 (FEB 14) Mg 2.2 (FEB 16) 2.0 (FEB 15) Phos 2.8 (FEB 16) L 2.4 (FEB 15) Ca 8.6 (FEB 16) 8.7 (FEB 15) 9.1 (FEB 14) . Impression and Plan #Acute hypoxemic respiratory failure #Influenza A Tele , stable Tamiflu 75 mg twice daily DuoNeb breathing treatments Systemic corticosteroids On RA Pulmonology consult noted #Hypertension Continue chlorthalidone 25 mg half tab daily Maintain BP control, as needed medication availa ble #Hyperlipidemia Continue fenofibrate 145 mg daily #Type 2 diabetes mellitus Fingerstick blood glucose Insulin per sliding scale Consistent carbohydrate diet #Gastroesophageal reflux disease Continue Protonix 40 mg daily #Asthma Continue fluticasone 50 mcg inhalation 1 puff tw ice daily Maintain adequate oxygenation, O2 as needed #Obstructive sleep apnea Continue CPAP at night PUD/VTE prophylaxis, Protonix, Lovenox Prognosis: GUARDED and will depend to patient?s response to treatment DC home soon Electronically signed by: NikjoMD sierra Rabin Signed on: 16-Feb-2022 10:32 PST Hospitalist Progress 02/16/2022 [facility] Note Patient: ROGER FREDERICK FIN: [id number] [place] Age: 76 years Legal Sex: Male : 1945 Author: MD White Rabin Basic Information Patient was admitted for respiratory failure 2/2 influenza A Review of Systems Constitutional: Negative. Respiratory: Shortness of breath. Cardiovascular: Negative. Gastrointestinal: Negative. Musculoskeletal: Negative. Integumentary: Negative. Neurologic: Negative. Psychiatric: Negative. Health Status Allergies: Allergic Reactions (Selected) No Known Medication Allergies, Allergies (1) Active Severity Reaction No Known Medication Allergies None Documented Current medications: (Selected) Inpatient Medications Ordered Atrovent: 0.5 mg, INH, Q2H, PRN, Wheezing, NEB A MP, 02/14/22 12:54:00 PST Benadryl: 25 mg, IV PUSH, Q6H, PRN, Itching, INJ , 02/14/22 12:54:00 PST Benadryl: 25 mg, IV PUSH, QBedtime, PRN, Insomni a, INJ, 02/14/22 12:54:00 PST Cepacol Lozenges: = 1 Lozeng e, ORAL, Q4H, PRN, Sore Throat, KATELYN, 02/15/22 17:53:00 PST Dextrose 50% Inj 50 mL: = 25 mL, IV PUSH, As directed, PRN, Blood Glucose, INJ, 02/14/22 12:54:00 PST Dextrose 50% Inj 50 mL: = 50 mL, IV PUSH, As directed, PRN, Blood Glucose, INJ, 02/14/22 12:54:00 PST Dulcolax Laxative: 10 mg, RE CTAL, DAILY, PRN, Constipation, SUPP, 02/14/22 12:54:00 PST K-Phos Neutral: = 1 Tab, ORA L, As directed, PRN, Phosphorus Replacement, TAB, 02/14/22 12:52:00 PST Lovenox: 40 mg, SUBQ, DAILY, Indication = VTE Prophylaxis, INJ, 02/14/22 18:00:00 PST Protonix: 40 mg, ORAL, DAILY, EC TAB, 02/14/22 1 2:54:00 PST SOLU-Medrol: 40 mg, IV PUSH, Q6H, INJ, 02/14/22 18:00:00 PST Tamiflu: 75 mg, ORAL, BID, ORAL SUSP, 02/14/22 2 1:00:00 PST Tylenol: 650 mg, ORAL, Q6H, PRN, Other (see comment), TAB, 02/14/22 12:54:00 PST Tylenol: 650 mg, RECTAL, Q6H , PRN, Other (see comment), SUPP, 02/14/22 12:54:00 PST Zofran: 4 mg, IV PUSH, Q4H, PRN, Nausea/Vomiting , INJ, 02/14/22 12:54:00 PST albuterol-ipratopium 3-0.5 m g/3 mL inh soln (DuoNeb): = 3 mL, INH, QID, NEB AMP, 02/14/22 17:00:00 PST albuterol: 1.25 mg, INH, Q2H, PRN, Wheezing, NEB AMP, 02/14/22 12:54:00 PST aspirin: 81 mg, ORAL, DAILY, EC TAB, 02/14/22 12 :52:00 PST atorvastatin: 10 mg, ORAL, QBedtime, TAB, 21:00:00 PST chlorthalidone 25 mg oral ta blet: chlorthalidone 25 mg oral tablet, = 0.5 Tab, ORAL, DAILY, 02/14/22 12:52:00 PST cloNIDine: 0.1 mg, ORAL, Q6H , PRN, Other (see comment), TAB, 02/14/22 12:54:00 PST docusate-senna 50 mg-8.6 mg oral tablet: = 1 Tab, ORAL, BID, TAB, 02/14/22 21:00:00 PST fenofibrate: 145 mg, ORAL, DAILY, TAB, 02/14/22 12:52:00 PST fluticasone 100 mcg inhalati on powder: = 1 Puff, INH, DAILY, POWDER, 02/14/22 12:52:00 PST glucagon: 1 mg, SUBQ, As dir ected, PRN, Blood Glucose, INJ, 02/14/22 12:54:00 PST insulin lispro Correction Sc julia Med (Body wt 70-100kg): correction scale, SUBQ, AC&Bed, 02/14/22 21:00:00 PST magnesium oxide: 400 mg, ORA L, BID, PRN, Magnesium Replacement, TAB, 02/14/22 12:51:00 PST magnesium sulfate 2 g in SWF I 50 mL: 2 gm = 50 mL, IVPB, [id number], PRN, Magnesium Replacement, IV SOLN, 02/14/22 12:51:00 PST, 50 mL/hr, 60 min potassium bicarbonate-citric acid: 20 mEq, ORAL, As directed, PRN, Potassium Replacement, EFFER TAB, 02/14/22 12:51:00 PST potassium bicarbonate-citric acid: 40 mEq, ORAL, As directed, PRN, Potassium Replacement, EFFER TAB, 02/14/22 12:51:00 PST potassium chloride 10 mEq in SWFI 100 mL: 10 mEq = 100 mL, IVPB, As directed, PRN, Potassium Replacement, IV SOLN, 02/14/22 12:51:00 PST, 100 mL/hr, 60 min sodium chloride 0.9% 1,000 m L: 1,000 mL, IV, Routine, 02/14/22 12:54:00 PST, 70 mL/hr, 14.3 hr, Order Weight 108, kg Documented Medications Documented A/Fish Oil 55263 u oral capsule: 0 Refill(s), Ma intenance Aspir 81 oral enteric coated tablet: = 1 Tab, ORAL, DAILY, 0 Refill(s), Maintenance NovoLOG FlexPen: 0 Refill(s), Maintenance Semglee: 70 mg evenings, 0 Refill(s), Maintenanc e albuterol: 2.5 mg, INH, [id number], 0 Refill(s ), Maintenance atorvastatin 10 mg oral tablet: = 1 Tab, ORAL, DAILY, 0 Refill(s), Maintenance chlorthalidone 25 mg oral ta blet: = 1 Tab, ORAL, DAILY, 1/2 daily, 0 Refill(s), Maintenance fenofibrate 145 mg oral tablet: = 1 Tab, ORAL, DAILY, 0 Refill(s), Maintenance fluticasone 50 mcg/inh inhal ation powder: 1 Puff, INH, BID, 0 Refill(s), Maintenance omeprazole 40 mg oral delaye d release capsule: 1 Cap, ORAL, DAILY, 0 Refill(s), Maintenance, Medications (32) Active Scheduled: (12) albuterol-ipratrop 3-0.5 mg/3 mL Neb Soln 3 mL, INH, QID aspirin 81 mg EC Tab 81 mg 1 EC_Tab, ORAL, DAILY atorvastatin 10 mg Tab 10 mg 1 Tab, ORAL, QBedti me chlorthalidone 25 mg oral tablet 0.5 Tab, ORAL, DAILY docusate-senna 50-8.6 mg Tab 1 Tab, ORAL, BID enoxaparin 40 mg/ 0.4 mL Inj Syringe 40 mg 0.4 m L, SUBQ, DAILY Fenofibrate 145 mg Tab 145 mg 1 Tab, ORAL, DAILY fluticasone furoate 100 mcg/inh 1 Puff, INH, NOEL LY insulin lispro (Admelog) 100 units/mL, 3 mL MDV correction scale, SUBQ, AC&Bed methylPRED sod succ 40 mg/mL Inj 40 mg 1 mL, IV PUSH, Q6H oseltamivir 6 mg/mL Oral Liq 1 mL 75 mg 12.5 mL, ORAL, BID pantoprazole 40 mg EC Tab 40 mg 1 Tab, ORAL, NOEL LY Continuous: (1) sodium chloride 0.9% 1,000 mL 1,000 mL, IV, 70 m L/hr PRN: (19) acetaminophen 325 mg Tab 650 mg 2 ea, ORAL, Q6H acetaminophen 650 mg Supp 650 mg 1 Supp, RECTAL, Q6H albuterol 1.25 mg/3 mL (0.042%) Inh Soln 1.25 mg 3 mL, INH, Q2H benzocaine-cetylpyridinium topical 1 Lozenge, OR AL, Q4H bisacodyl 10 mg Supp 10 mg 1 Supp, RECTAL, DAILY cloNIDine 0.1 mg Tab 0.1 mg 1 Tab, ORAL, Q6H Dextrose 50% Inj 50 mL Syr 25 mL, IV PUSH, As di rected Dextrose 50% Inj 50 mL Syr 50 mL, IV PUSH, As di rected diphenhydrAMINE 50 mg/mL Inj 1 mL SDV 25 mg 0.5 mL, IV PUSH, Q6H diphenhydrAMINE 50 mg/mL Inj 1 mL SDV 25 mg 0.5 mL, IV PUSH, QBedtime glucagon 1 mg Inj SDV 1 mg, SUBQ, As directed ipratropium 0.5mg/2.5 mL (0.02%) Neb Amp 0.5 mg 2.5 mL, INH, Q2H K-Bicarb- citric acid 20 mEq Effer Tab 20 mEq 1 Tab, ORAL, As directed K-Bicarb- citric acid 20 mEq Effer Tab 40 mEq 2 Tab, ORAL, As directed K-phos neutral Tab 1 Tab, ORAL, As directed magnesium Oxide 400 mg Tab 400 mg 1 Tab, ORAL, B ID magnesium sulfate / SWFI 2 gm 50 mL, IVPB, Q12H- Interval ondansetron 2 mg/mL, 2 mL Inj 4 mg 2 mL, IV PUSH , Q4H potassium chloride 10 mEq 100 mL, IVPB, As direc josias Problem list: All Problems Current smoker / [id number] / Confirmed Ineffective breathing pattern / [id number] / Provi sional Manage infection control / [id number] / Provisio nal Physical Examination Vital Signs 02/16/2022 10:25 PST Pulse Oximetry 94 % Pulse oximetry method Continuous Oxygen delivery Room air BP location Left arm 02/16/2022 08:47 PST Peripheral Pulse Rate 88 bp m Normal Pulse Oximetry 95 % Oxygen delivery Room air Oxygen %/FiO2 21 % Normal 02/16/2022 08:37 PST Peripheral Pulse Rate 88 bp m Normal Respiratory rate 20 br/min Normal Pulse Oximetry 95 % Oxygen %/FiO2 21 % Normal 02/16/2022 08:00 PST Temperature (F) 98.0 DegF N ormal Peripheral Pulse Rate 80 bpm Normal Respiratory rate 18 br/min Normal Systolic BP 150 mmHg HI Diastolic BP 78 mmHg Normal Pulse Oximetry 98 % Pulse oximetry method Continuous Oxygen delivery In Error (In Error) Activity with SPO2 monitoring At rest Oxygen flow In Error L/min Normal (In Error) Temp site Oral BP position Lying BP location Left arm Blood Pressure Method Automatic Peripheral pulse site Non-invasive BP device 02/16/2022 05:43 PST Temperature (F) 97.4 DegF N ormal Peripheral Pulse Rate 82 bpm Normal Respiratory rate 20 br/min Normal Systolic BP 153 mmHg HI Diastolic BP 91 mmHg HI Pulse Oximetry 98 % Pulse oximetry method Continuous Oxygen delivery Nasal cannula Temp site Oral BP position Lying BP location Left arm Blood Pressure Method Automatic Peripheral pulse site Non-invasive BP device 02/16/2022 00:53 PST Temperature (F) 97.5 DegF N ormal Peripheral Pulse Rate 87 bpm Normal Respiratory rate 20 br/min Normal Systolic BP 151 mmHg HI Diastolic BP 80 mmHg Normal Pulse Oximetry 97 % Pulse oximetry method Continuous Oxygen delivery Nasal cannula Activity with SPO2 monitoring At rest Oxygen flow 2 L/min Temp site Oral BP position Lying BP location Left arm Blood Pressure Method Automatic Peripheral pulse site Non-invasive BP device 02/15/2022 20:49 PST Temperature (F) 98.6 DegF N ormal Peripheral Pulse Rate 96 bpm Normal Respiratory rate 20 br/min Normal Systolic BP 147 mmHg HI Diastolic BP 78 mmHg Normal Pulse Oximetry 96 % Pulse oximetry method Continuous Oxygen delivery Nasal cannula Activity with SPO2 monitoring At rest Oxygen flow 2 L/min Temp site Oral BP position Lying BP location Left arm Blood Pressure Method Automatic Peripheral pulse site Non-invasive BP device 02/15/2022 20:28 PST Peripheral Pulse Rate 96 bp m Normal Respiratory rate 20 br/min Normal Pulse Oximetry 97 % Oxygen flow 2 L/min Peripheral pulse site Pulse oximetry device 02/15/2022 20:09 PST Peripheral Pulse Rate 91 bp m Normal Respiratory rate 22 br/min HI Pulse Oximetry 96 % Oxygen flow 2 L/min Peripheral pulse site Pulse oximetry device 02/15/2022 16:28 PST Peripheral Pulse Rate 84 bp m Normal Respiratory rate 18 br/min Normal 02/15/2022 16:18 PST Peripheral Pulse Rate 82 bp m Normal Respiratory rate 18 br/min Normal 02/15/2022 15:48 PST Temperature (F) 98.0 DegF N ormal Peripheral Pulse Rate 93 bpm Normal Respiratory rate 16 br/min Normal Systolic BP 142 mmHg HI Diastolic BP 76 mmHg Normal Pulse Oximetry 97 % Pulse oximetry method Continuous Oxygen delivery Nasal cannula Activity with SPO2 monitoring At rest Oxygen flow 2 L/min Temp site Oral BP position Sitting BP location Left arm Blood Pressure Method Automatic Peripheral pulse site Non-invasive BP device 02/15/2022 11:39 PST Peripheral Pulse Rate 84 bp m Normal Respiratory rate 18 br/min Normal 02/15/2022 11:29 PST Peripheral Pulse Rate 82 bp m Normal Respiratory rate 18 br/min Normal Pulse Oximetry 95 % Oxygen delivery Nasal cannula Oxygen flow 2 L/min 02/15/2022 11:21 PST Temperature (F) 98.4 DegF N ormal Peripheral Pulse Rate 87 bpm Normal Respiratory rate 15 br/min Normal Systolic BP 145 mmHg HI Diastolic BP 76 mmHg Normal Pulse Oximetry 97 % Pulse oximetry method Continuous Oxygen delivery Nasal cannula Activity with SPO2 monitoring At rest Oxygen flow 2 L/min Temp site Oral BP position Sitting BP location Right arm Blood Pressure Method Automatic Peripheral pulse site Non-invasive BP device 02/15/2022 10:59 PST Pulse Oximetry 93 % Pulse oximetry method Continuous Oxygen delivery Nasal cannula Activity with SPO2 monitoring At rest Oxygen flow 2 L/min BP location Right arm 02/15/2022 09:00 PST Pulse Oximetry 88 % <LLOW Pulse oximetry method Continuous Oxygen delivery Room air BP position Standing BP location Right arm 02/15/2022 08:00 PST Oxygen delivery Nasal cannu la Oxygen flow 2 L/min 02/15/2022 07:50 PST Temperature (F) 97.9 DegF N ormal Peripheral Pulse Rate 90 bpm Normal Respiratory rate 17 br/min Normal Systolic BP 145 mmHg HI Diastolic BP 77 mmHg Normal Pulse Oximetry 96 % Pulse oximetry method Continuous Oxygen delivery Nasal cannula Activity with SPO2 monitoring At rest Oxygen flow 2 L/min Temp site Oral BP position Lying BP location Right arm Blood Pressure Method Automatic Peripheral pulse site Non-invasive BP device 02/15/2022 07:44 PST Peripheral Pulse Rate 82 bp m Normal Respiratory rate 18 br/min Normal 02/15/2022 07:35 PST Pulse Oximetry 95 % Oxygen delivery Room air 02/15/2022 07:34 PST Peripheral Pulse Rate 80 bp m Normal Respiratory rate 18 br/min Normal 02/15/2022 05:13 PST Temperature (F) 98 DegF Nor mal Peripheral Pulse Rate 76 bpm Normal Respiratory rate 18 br/min Normal Systolic BP 132 mmHg Normal Diastolic BP 74 mmHg Normal Pulse Oximetry 94 % Pulse oximetry method Continuous Oxygen delivery CPAP/NIPPV Activity with SPO2 monitoring At rest Oxygen flow 2 L/min Temp site Oral BP position Lying BP location Right arm Blood Pressure Method Automatic Peripheral pulse site Non-invasive BP device 02/15/2022 00:40 PST Temperature (F) 97.7 DegF N ormal Peripheral Pulse Rate 71 bpm Normal Respiratory rate 20 br/min Normal Systolic BP 154 mmHg HI Diastolic BP 81 mmHg Normal Pulse Oximetry 94 % Pulse oximetry method Continuous Oxygen delivery CPAP/NIPPV (Modified) Activity with SPO2 monitoring At rest Oxygen flow 2 L/min Temp site Oral BP position Lying BP location Right arm Peripheral pulse site Non-invasive BP device Vital Signs (last 24 hrs)___ __ Last Charted Minimum Maximum Temp(?F) 98.0 (FEB 16 08:00 PST) 97.4 (FEB 16 05:43 PST) 98.6 (FEB 15 20:49 PST) Heart Rate 88 (FEB 16 08:47 PST) 80 (FEB 16 08:0 0 PST) 96 (FEB 15 20:28 PST) Resp Rate 20 (FEB 16 08:37 PST) 15 (FEB 15 11:21 PST) H 22 (FEB 15 20:09 PST) SBP H 150 (FEB 16 08:00 PST) H 142 (FEB 15 15:48 PST) H 153 (FEB 16 05:43 PST) DBP 78 (FEB 16 08:00 PST) 76 (FEB 15 11:21 PST) H 91 (FEB 16 05:43 PST) SpO2 94 (FEB 16 10:25 PST) 93 (FEB 15 10:59 PST) 98 (FEB 16 05:43 PST) OXYFIO2 21 (FEB 16 08:47 PST) 21 (FEB 16 08:[address]) 21 (FEB 16 08:37 PST) OXYFLOW 2 (FEB 16 00:53 PST) 2 (FEB 15 10:59 PST ) 2 (FEB 15 10:59 PST) OXYDELIVERY Room air Nasal Nasal (FEB 16 10:25 PST) (FEB 15 10:59 PST) (FEB 15 0:59 PST) Measurements from flowsheet : Measurements 02/16/2022 06:00 PST Weight (kg) 108.5 kg Weight measured method Bed scale 02/15/2022 06:00 PST Weight (kg) 109.9 kg Weight measured method Bed scale General: No acute distress. Neck: Supple. Respiratory: Breath sounds are equal. Cardiovascular: Normal rate, Regular rhythm, No murmur. Gastrointestinal: Soft, Non-tender, Non-distende d. Genitourinary: No costovertebral angle tendernes s. Musculoskeletal Normal range of motion. Neurologic: No focal deficits. Psychiatric: Cooperative. Review / Management Results review: Labs (Last four charted values) WBC 10.5 (FEB 16) 9.4 (FEB 15) 8.4 (FEB 14) Hgb L 11.7 (FEB 16) L 11.6 (FEB 15) 12.6 (FEB 14 ) Hct L 34.3 (FEB 16) 34.9 (FEB 15) 37.7 (FEB 14) Plt 146 (FEB 16) L 123 (FEB 15) L 138 (FEB 14) Na L 132 (FEB 16) 136 (FEB 15) L 134 (FEB 14) K 4.1 (FEB 16) 4.5 (FEB 15) 3.6 (FEB 14) CO2 L 22 (FEB 16) 24 (FEB 15) 25 (FEB 14) Cl 101 (FEB 16) 104 (FEB 15) L 100 (FEB 14) Cr H 1.39 (FEB 16) H 1.59 (FEB 15) H 1.52 (Feb) BUN H 34 (FEB 16) H 27 (FEB 15) 19 (FEB 14) Glucose Random H 316 (FEB 16) H 302 (FEB 15) 125 (FEB 14) Mg 2.2 (FEB 16) 2.0 (FEB 15) Phos 2.8 (FEB 16) L 2.4 (FEB 15) Ca 8.6 (FEB 16) 8.7 (FEB 15) 9.1 (FEB 14) . Impression and Plan #Acute hypoxemic respiratory failure #Influenza A Tele , stable Tamiflu 75 mg twice daily DuoNeb breathing treatments Systemic corticosteroids On RA Pulmonology consult noted #Hypertension Continue chlorthalidone 25 mg half tab daily Maintain BP control, as needed medication availa ble #Hyperlipidemia Continue fenofibrate 145 mg daily #Type 2 diabetes mellitus Fingerstick blood glucose Insulin per sliding scale Consistent carbohydrate diet #Gastroesophageal reflux disease Continue Protonix 40 mg daily #Asthma Continue fluticasone 50 mcg inhalation 1 puff tw ice daily Maintain adequate oxygenation, O2 as needed #Obstructive sleep apnea Continue CPAP at night PUD/VTE prophylaxis, Protonix, Lovenox Prognosis: GUARDED and will depend to patient's response to treatment DC home soon [id number] Male Critical care medicine 02/16/2022 60 [facility] Progress note Patient: ROGER FREDERICK [place] Age: 76 years Legal Sex: Male : 1945 Author: MD AngelJeronimo Basic Information Cough chest congestion wheezing is better Using nocturnal CPAP On O2 2 L Review of Systems Constitutional: Fatigue. Eye: Negative. Ear/Nose/Mouth/Throat: Negative. Respiratory: Shortness of breath, Cough, Wheezin g, Apnea. Cardiovascular: Negative. Gastrointestinal: Negative. Genitourinary: Negative. Hematology/Lymphatics: Negative. Endocrine: Negative. Immunologic: Negative. Musculoskeletal: Joint pain. Integumentary: Negative. Neurologic: Alert and oriented X4. Psychiatric: Negative. ROS reviewed as documented in chart Health Status Allergies: Allergies (1) Active Severity Reaction No Known Medication Allergies None Documented Problem List: Problem List Current medications: Continuous Infusions (1) 1.) SODIUM CHLORIDE 0.9% 1,000 ML - 02/15/2022 1 1:59 - 70 mL , (Selected) Inpatient Medications Ordered Atrovent: 0.5 mg, INH, Q2H, PRN, Wheezing, NEB A MP, 02/14/22 12:54:00 PST Benadryl: 25 mg, IV PUSH, Q6H, PRN, Itching, INJ , 02/14/22 12:54:00 PST Benadryl: 25 mg, IV PUSH, QBedtime, PRN, Insomni a, INJ, 02/14/22 12:54:00 PST Cepacol Lozenges: = 1 Lozeng e, ORAL, Q4H, PRN, Sore Throat, KATELYN, 02/15/22 17:53:00 PST Dextrose 50% Inj 50 mL: = 25 mL, IV PUSH, As directed, PRN, Blood Glucose, INJ, 02/14/22 12:54:00 PST Dextrose 50% Inj 50 mL: = 50 mL, IV PUSH, As directed, PRN, Blood Glucose, INJ, 02/14/22 12:54:00 PST Dulcolax Laxative: 10 mg, RE CTAL, DAILY, PRN, Constipation, SUPP, 02/14/22 12:54:00 PST K-Phos Neutral: = 1 Tab, ORA L, As directed, PRN, Phosphorus Replacement, TAB, 02/14/22 12:52:00 PST Lovenox: 40 mg, SUBQ, DAILY, Indication = VTE Prophylaxis, INJ, 02/14/22 18:00:00 PST Protonix: 40 mg, ORAL, DAILY, EC TAB, 02/14/22 1 2:54:00 PST SOLU-Medrol: 40 mg, IV PUSH, Q6H, INJ, 02/14/22 18:00:00 PST Tamiflu: 75 mg, ORAL, BID, ORAL SUSP, 02/14/22 2 1:00:00 PST Tylenol: 650 mg, ORAL, Q6H, PRN, Other (see comment), TAB, 02/14/22 12:54:00 PST Tylenol: 650 mg, RECTAL, Q6H , PRN, Other (see comment), SUPP, 02/14/22 12:54:00 PST Zofran: 4 mg, IV PUSH, Q4H, PRN, Nausea/Vomiting , INJ, 02/14/22 12:54:00 PST albuterol-ipratopium 3-0.5 m g/3 mL inh soln (DuoNeb): = 3 mL, INH, QID, NEB AMP, 02/14/22 17:00:00 PST albuterol: 1.25 mg, INH, Q2H, PRN, Wheezing, NEB AMP, 02/14/22 12:54:00 PST aspirin: 81 mg, ORAL, DAILY, EC TAB, 02/14/22 12 :52:00 PST atorvastatin: 10 mg, ORAL, QBedtime, TAB, 21:00:00 PST chlorthalidone 25 mg oral ta blet: chlorthalidone 25 mg oral tablet, = 0.5 Tab, ORAL, DAILY, 02/14/22 12:52:00 PST cloNIDine: 0.1 mg, ORAL, Q6H , PRN, Other (see comment), TAB, 02/14/22 12:54:00 PST docusate-senna 50 mg-8.6 mg oral tablet: = 1 Tab, ORAL, BID, TAB, 02/14/22 21:00:00 PST fenofibrate: 145 mg, ORAL, DAILY, TAB, 02/14/22 12:52:00 PST fluticasone 100 mcg inhalati on powder: = 1 Puff, INH, DAILY, POWDER, 02/14/22 12:52:00 PST glucagon: 1 mg, SUBQ, As dir ected, PRN, Blood Glucose, INJ, 02/14/22 12:54:00 PST insulin lispro Correction Sc julia Med (Body wt 70-100kg): correction scale, SUBQ, AC&Bed, 02/14/22 21:00:00 PST magnesium oxide: 400 mg, ORA L, BID, PRN, Magnesium Replacement, TAB, 02/14/22 12:51:00 PST magnesium sulfate 2 g in SWF I 50 mL: 2 gm = 50 mL, IVPB, [id number], PRN, Magnesium Replacement, IV SOLN, 02/14/22 12:51:00 PST, 50 mL/hr, 60 min potassium bicarbonate-citric acid: 20 mEq, ORAL, As directed, PRN, Potassium Replacement, EFFER TAB, 02/14/22 12:51:00 PST potassium bicarbonate-citric acid: 40 mEq, ORAL, As directed, PRN, Potassium Replacement, EFFER TAB, 02/14/22 12:51:00 PST potassium chloride 10 mEq in SWFI 100 mL: 10 mEq = 100 mL, IVPB, As directed, PRN, Potassium Replacement, IV SOLN, 02/14/22 12:51:00 PST, 100 mL/hr, 60 min sodium chloride 0.9% 1,000 m L: 1,000 mL, IV, Routine, 02/14/22 12:54:00 PST, 70 mL/hr, 14.3 hr, Order Weight 108, kg Documented Medications Documented A/Fish Oil 52796 u oral capsule: 0 Refill(s), Ma intenance Aspir 81 oral enteric coated tablet: = 1 Tab, ORAL, DAILY, 0 Refill(s), Maintenance NovoLOG FlexPen: 0 Refill(s), Maintenance Semglee: 70 mg evenings, 0 Refill(s), Maintenanc e albuterol: 2.5 mg, INH, [id number], 0 Refill(s ), Maintenance atorvastatin 10 mg oral tablet: = 1 Tab, ORAL, DAILY, 0 Refill(s), Maintenance chlorthalidone 25 mg oral ta blet: = 1 Tab, ORAL, DAILY, 1/2 daily, 0 Refill(s), Maintenance fenofibrate 145 mg oral tablet: = 1 Tab, ORAL, DAILY, 0 Refill(s), Maintenance fluticasone 50 mcg/inh inhal ation powder: 1 Puff, INH, BID, 0 Refill(s), Maintenance omeprazole 40 mg oral delaye d release capsule: 1 Cap, ORAL, DAILY, 0 Refill(s), Maintenance Measurements VS/Measurements: Inpt. Vital signs (ST) Vital Signs (last 24 hrs)___ __ Last Charted Minimum Maximum Temp(?F) 98.0 (FEB 15 15:48 PST) 97.7 (FEB 15 00:40 PST) 98.8 (FEB 14 20:00 PST) Heart Rate 93 (FEB 15 15:48 PST) 71 (FEB 15 00:4 0 PST) 93 (FEB 14 20:00 PST) Resp Rate 16 (FEB 15 15:48 PST) 15 (FEB 15 11:21 PST) 20 (FEB 14 19:40 PST) SBP H 142 (FEB 15 15:48 PST) 132 (FEB 15 05:[address]) H 154 (FEB 15 00:40 PST) DBP 76 (FEB 15 15:48 PST) 73 (FEB 14 20:00 PST) 81 (FEB 15 00:40 PST) SpO2 97 (FEB 15 15:48 PST) C 88 (FEB 15 09:00 PS T) 97 (FEB 15 11:21 PST) OXYFLOW 2 (FEB 15 15:48 PST) 2 (FEB 14 19:40 PST ) 2 (FEB 14 19:40 PST) OXYDELIVERY Nasal cannula Nasal Nasal (FEB 15 15:48 PST) (FEB 14 20:00 PST) (FEB 14 0:00 PST) . Respiratory: Arterial Blood Gas (ST) No qualifying data available., . Physical Examination General: Alert and oriented, No acute distress. Intake and Output Stool count small: 1 (02/15/22 11:00:00) Stool count medium: 1 (02/15/22 05:00:00) Stool count medium: 1 (02/15/22 00:00:00) Stool count medium: 1 (02/14/22 20:00:00) Urine count: 1 (02/15/22 12:00:00) Urine count: 1 (02/15/22 10:00:00) Urine count: 1 (02/15/22 08:00:00) Urine count: 1 (02/15/22 05:00:00) Urine count: 1 (02/15/22 04:00:00) Urine count: 1 (02/15/22 03:00:00) Urine count: 1 (02/15/22 00:00:00) Eye: Extraocular movements are intact, Normal co njunctiva. HENT: Normocephalic. Neck: Supple, Non-tender, No carotid bruit, No j ugular venous distention. Respiratory: Respirations are non-labored. Breath sounds: Prolonged expiratory phase. Cardiovascular: Regular rhythm, S1, S2. Gastrointestinal: Soft, Non-tender, Non-distende d, Normal bowel sounds. Genitourinary: No costovertebral angle tendernes s. Musculoskeletal: Normal range of motion, Normal strength. Integumentary: Warm. Neurologic: Alert, Oriented. Psychiatric: Cooperative. Review / Management Laboratory Results Labs (Last four charted values) WBC 9.4 (FEB 15) 8.4 (FEB 14) Hgb L 11.6 (FEB 15) 12.6 (FEB 14) Hct 34.9 (FEB 15) 37.7 (FEB 14) Plt L 123 (FEB 15) L 138 (FEB 14) Na 136 (FEB 15) L 134 (FEB 14) K 4.5 (FEB 15) 3.6 (FEB 14) CO2 24 (FEB 15) 25 (FEB 14) Cl 104 (FEB 15) L 100 (FEB 14) Cr H 1.59 (FEB 15) H 1.52 (FEB 14) BUN H 27 (FEB 15) 19 (FEB 14) Glucose Random H 302 (FEB 15) 125 (FEB 14) Mg 2.0 (FEB 15) Phos L 2.4 (FEB 15) Ca 8.7 (FEB 15) 9.1 (FEB 14) Cultures Results: . Radiology results: General Diagnostic Result Type: Chest 1 Vw Portable Result Date: February 14, 2022 12:09 PST Reason For Exam: Shortness of Breath REPORT:? INDICATION: Shortness of BreathCOMPARIS ON: None. FINDINGS: The lungs are well expanded and clear, and the cardiac silhouette and pulmonary vessels appear normal. There is no pulmonary vascular redistribution, pleural effusion, or pneumothorax seen. Signed by: Sean Beverly MD on 02/14/2022 12:11 PM , ECG Interpretation: Recent result: Date Performed: 02/14/2022 12:20:27 PST Status: Signed Impression: SINUS RHYTHM RIGHT BUNDLE BRANCH BLOCK [1 20+ ms QRS DURATION, UPRIGHT V1, 40+ ms S IN I/aVL/V4/V5/V6] LEFT ANTERIOR FASCICULAR BLOCK [QRS AXIS <= -45, QR IN I, RS IN II] No ectopy EKG read at 1225 ABNORMAL ECG Electronic Signature: MD Denise, Oren Ny 02/16/20 11:37:19 . Impression and Plan Acute hypoxic respiratory failure Influenza A tracheobronchitis DM2 Renal insufficiency acute on chronic Hypertension Hyperlipidemia Thrombocytopenia OSAS Obesity GERD Plan: Patient is responding to treatment Panculture Tamiflu IV Rocephin/Zithromax Bronchodilators/ICS/O2 supplementation On IV Solu-Medrol Continue home medications Respiratory isolation Accu-Cheks/SSI Nocturnal CPAP use compliant DVT/PUD prophylaxis Condition prognosis improving Consulting Physician: Discharge medications: [facility] Meds List (Selected) Inpatient Medications Ordered Atrovent: 0.5 mg, INH, Q2H, PRN, Wheezing, NEB A MP, 02/14/22 12:54:00 PST Benadryl: 25 mg, IV PUSH, Q6H, PRN, Itching, INJ , 02/14/22 12:54:00 PST Benadryl: 25 mg, IV PUSH, QBedtime, PRN, Insomni a, INJ, 02/14/22 12:54:00 PST Cepacol Lozenges: = 1 Lozeng e, ORAL, Q4H, PRN, Sore Throat, KATELYN, 02/15/22 17:53:00 PST Dextrose 50% Inj 50 mL: = 25 mL, IV PUSH, As directed, PRN, Blood Glucose, INJ, 02/14/22 12:54:00 PST Dextrose 50% Inj 50 mL: = 50 mL, IV PUSH, As directed, PRN, Blood Glucose, INJ, 02/14/22 12:54:00 PST Dulcolax Laxative: 10 mg, RE CTAL, DAILY, PRN, Constipation, SUPP, 02/14/22 12:54:00 PST K-Phos Neutral: = 1 Tab, ORA L, As directed, PRN, Phosphorus Replacement, TAB, 02/14/22 12:52:00 PST Lovenox: 40 mg, SUBQ, DAILY, Indication = VTE Prophylaxis, INJ, 02/14/22 18:00:00 PST Protonix: 40 mg, ORAL, DAILY, EC TAB, 02/14/22 1 2:54:00 PST SOLU-Medrol: 40 mg, IV PUSH, Q6H, INJ, 02/14/22 18:00:00 PST Tamiflu: 75 mg, ORAL, BID, ORAL SUSP, 02/14/22 2 1:00:00 PST Tylenol: 650 mg, ORAL, Q6H, PRN, Other (see comment), TAB, 02/14/22 12:54:00 PST Tylenol: 650 mg, RECTAL, Q6H , PRN, Other (see comment), SUPP, 02/14/22 12:54:00 PST Zofran: 4 mg, IV PUSH, Q4H, PRN, Nausea/Vomiting , INJ, 02/14/22 12:54:00 PST albuterol-ipratopium 3-0.5 m g/3 mL inh soln (DuoNeb): = 3 mL, INH, QID, NEB AMP, 02/14/22 17:00:00 PST albuterol: 1.25 mg, INH, Q2H, PRN, Wheezing, NEB AMP, 02/14/22 12:54:00 PST aspirin: 81 mg, ORAL, DAILY, EC TAB, 02/14/22 12 :52:00 PST atorvastatin: 10 mg, ORAL, QBedtime, TAB, 21:00:00 PST chlorthalidone 25 mg oral ta blet: chlorthalidone 25 mg oral tablet, = 0.5 Tab, ORAL, DAILY, 02/14/22 12:52:00 PST cloNIDine: 0.1 mg, ORAL, Q6H , PRN, Other (see comment), TAB, 02/14/22 12:54:00 PST docusate-senna 50 mg-8.6 mg oral tablet: = 1 Tab, ORAL, BID, TAB, 02/14/22 21:00:00 PST fenofibrate: 145 mg, ORAL, DAILY, TAB, 02/14/22 12:52:00 PST fluticasone 100 mcg inhalati on powder: = 1 Puff, INH, DAILY, POWDER, 02/14/22 12:52:00 PST glucagon: 1 mg, SUBQ, As dir ected, PRN, Blood Glucose, INJ, 02/14/22 12:54:00 PST insulin lispro Correction Sc julia Med (Body wt 70-100kg): correction scale, SUBQ, AC&Bed, 02/14/22 21:00:00 PST magnesium oxide: 400 mg, ORA L, BID, PRN, Magnesium Replacement, TAB, 02/14/22 12:51:00 PST magnesium sulfate 2 g in SWF I 50 mL: 2 gm = 50 mL, IVPB, [id number], PRN, Magnesium Replacement, IV SOLN, 02/14/22 12:51:00 PST, 50 mL/hr, 60 min potassium bicarbonate-citric acid: 20 mEq, ORAL, As directed, PRN, Potassium Replacement, EFFER TAB, 02/14/22 12:51:00 PST potassium bicarbonate-citric acid: 40 mEq, ORAL, As directed, PRN, Potassium Replacement, EFFER TAB, 02/14/22 12:51:00 PST potassium chloride 10 mEq in SWFI 100 mL: 10 mEq = 100 mL, IVPB, As directed, PRN, Potassium Replacement, IV SOLN, 02/14/22 12:51:00 PST, 100 mL/hr, 60 min sodium chloride 0.9% 1,000 m L: 1,000 mL, IV, Routine, 02/14/22 12:54:00 PST, 70 mL/hr, 14.3 hr, Order Weight 108, kg Documented Medications Documented A/Fish Oil 18511 u oral capsule: 0 Refill(s), Ma intenance Aspir 81 oral enteric coated tablet: = 1 Tab, ORAL, DAILY, 0 Refill(s), Maintenance NovoLOG FlexPen: 0 Refill(s), Maintenance Semglee: 70 mg evenings, 0 Refill(s), Maintenanc e albuterol: 2.5 mg, INH, [id number], 0 Refill(s ), Maintenance atorvastatin 10 mg oral tablet: = 1 Tab, ORAL, DAILY, 0 Refill(s), Maintenance chlorthalidone 25 mg oral ta blet: = 1 Tab, ORAL, DAILY, 1/2 daily, 0 Refill(s), Maintenance fenofibrate 145 mg oral tablet: = 1 Tab, ORAL, DAILY, 0 Refill(s), Maintenance fluticasone 50 mcg/inh inhal ation powder: 1 Puff, INH, BID, 0 Refill(s), Maintenance omeprazole 40 mg oral delaye d release capsule: 1 Cap, ORAL, DAILY, 0 Refill(s), Maintenance. Electronically signed by: MD Ortiz Vijay Signed on: 15-Feb-2022 18:43 PST Critical Care Progress 02/16/2022 [facility] Note Patient: ROGER FREDERICK FIN: [id number] [place] Age: 76 years Legal Sex: Male : 1945 Author: MD Ortiz Vijay Basic Information Cough chest congestion wheezing is better Using nocturnal CPAP On O2 2 L Review of Systems Constitutional: Fatigue. Eye: Negative. Ear/Nose/Mouth/Throat: Negative. Respiratory: Shortness of breath, Cough, Wheezin g, Apnea. Cardiovascular: Negative. Gastrointestinal: Negative. Genitourinary: Negative. Hematology/Lymphatics: Negative. Endocrine: Negative. Immunologic: Negative. Musculoskeletal: Joint pain. Integumentary: Negative. Neurologic: Alert and oriented X4. Psychiatric: Negative. ROS reviewed as documented in chart Health Status Allergies: Allergies (1) Active Severity Reaction No Known Medication Allergies None Documented Problem List: Problem List Current medications: Continuous Infusions (1) 1.) SODIUM CHLORIDE 0.9% 1,000 ML - 02/15/2022 1 1:59 - 70 mL , (Selected) Inpatient Medications Ordered Atrovent: 0.5 mg, INH, Q2H, PRN, Wheezing, NEB A MP, 02/14/22 12:54:00 PST Benadryl: 25 mg, IV PUSH, Q6H, PRN, Itching, INJ , 02/14/22 12:54:00 PST Benadryl: 25 mg, IV PUSH, QBedtime, PRN, Insomni a, INJ, 02/14/22 12:54:00 PST Cepacol Lozenges: = 1 Lozeng e, ORAL, Q4H, PRN, Sore Throat, KATELYN, 02/15/22 17:53:00 PST Dextrose 50% Inj 50 mL: = 25 mL, IV PUSH, As directed, PRN, Blood Glucose, INJ, 02/14/22 12:54:00 PST Dextrose 50% Inj 50 mL: = 50 mL, IV PUSH, As directed, PRN, Blood Glucose, INJ, 02/14/22 12:54:00 PST Dulcolax Laxative: 10 mg, RE CTAL, DAILY, PRN, Constipation, SUPP, 02/14/22 12:54:00 PST K-Phos Neutral: = 1 Tab, ORA L, As directed, PRN, Phosphorus Replacement, TAB, 02/14/22 12:52:00 PST Lovenox: 40 mg, SUBQ, DAILY, Indication = VTE Prophylaxis, INJ, 02/14/22 18:00:00 PST Protonix: 40 mg, ORAL, DAILY, EC TAB, 02/14/22 1 2:54:00 PST SOLU-Medrol: 40 mg, IV PUSH, Q6H, INJ, 02/14/22 18:00:00 PST Tamiflu: 75 mg, ORAL, BID, ORAL SUSP, 02/14/22 2 1:00:00 PST Tylenol: 650 mg, ORAL, Q6H, PRN, Other (see comment), TAB, 02/14/22 12:54:00 PST Tylenol: 650 mg, RECTAL, Q6H , PRN, Other (see comment), SUPP, 02/14/22 12:54:00 PST Zofran: 4 mg, IV PUSH, Q4H, PRN, Nausea/Vomiting , INJ, 02/14/22 12:54:00 PST albuterol-ipratopium 3-0.5 m g/3 mL inh soln (DuoNeb): = 3 mL, INH, QID, NEB AMP, 02/14/22 17:00:00 PST albuterol: 1.25 mg, INH, Q2H, PRN, Wheezing, NEB AMP, 02/14/22 12:54:00 PST aspirin: 81 mg, ORAL, DAILY, EC TAB, 02/14/22 12 :52:00 PST atorvastatin: 10 mg, ORAL, QBedtime, TAB, 21:00:00 PST chlorthalidone 25 mg oral ta blet: chlorthalidone 25 mg oral tablet, = 0.5 Tab, ORAL, DAILY, 02/14/22 12:52:00 PST cloNIDine: 0.1 mg, ORAL, Q6H , PRN, Other (see comment), TAB, 02/14/22 12:54:00 PST docusate-senna 50 mg-8.6 mg oral tablet: = 1 Tab, ORAL, BID, TAB, 02/14/22 21:00:00 PST fenofibrate: 145 mg, ORAL, DAILY, TAB, 02/14/22 12:52:00 PST fluticasone 100 mcg inhalati on powder: = 1 Puff, INH, DAILY, POWDER, 02/14/22 12:52:00 PST glucagon: 1 mg, SUBQ, As dir ected, PRN, Blood Glucose, INJ, 02/14/22 12:54:00 PST insulin lispro Correction Sc julia Med (Body wt 70-100kg): correction scale, SUBQ, AC&Bed, 02/14/22 21:00:00 PST magnesium oxide: 400 mg, ORA L, BID, PRN, Magnesium Replacement, TAB, 02/14/22 12:51:00 PST magnesium sulfate 2 g in SWF I 50 mL: 2 gm = 50 mL, IVPB, [id number], PRN, Magnesium Replacement, IV SOLN, 02/14/22 12:51:00 PST, 50 mL/hr, 60 min potassium bicarbonate-citric acid: 20 mEq, ORAL, As directed, PRN, Potassium Replacement, EFFER TAB, 02/14/22 12:51:00 PST potassium bicarbonate-citric acid: 40 mEq, ORAL, As directed, PRN, Potassium Replacement, EFFER TAB, 02/14/22 12:51:00 PST potassium chloride 10 mEq in SWFI 100 mL: 10 mEq = 100 mL, IVPB, As directed, PRN, Potassium Replacement, IV SOLN, 02/14/22 12:51:00 PST, 100 mL/hr, 60 min sodium chloride 0.9% 1,000 m L: 1,000 mL, IV, Routine, 02/14/22 12:54:00 PST, 70 mL/hr, 14.3 hr, Order Weight 108, kg Documented Medications Documented A/Fish Oil 52077 u oral capsule: 0 Refill(s), Ma intenance Aspir 81 oral enteric coated tablet: = 1 Tab, ORAL, DAILY, 0 Refill(s), Maintenance NovoLOG FlexPen: 0 Refill(s), Maintenance Semglee: 70 mg evenings, 0 Refill(s), Maintenanc e albuterol: 2.5 mg, INH, [id number], 0 Refill(s ), Maintenance atorvastatin 10 mg oral tablet: = 1 Tab, ORAL, DAILY, 0 Refill(s), Maintenance chlorthalidone 25 mg oral ta blet: = 1 Tab, ORAL, DAILY, 1/2 daily, 0 Refill(s), Maintenance fenofibrate 145 mg oral tablet: = 1 Tab, ORAL, DAILY, 0 Refill(s), Maintenance fluticasone 50 mcg/inh inhal ation powder: 1 Puff, INH, BID, 0 Refill(s), Maintenance omeprazole 40 mg oral delaye d release capsule: 1 Cap, ORAL, DAILY, 0 Refill(s), Maintenance Measurements VS/Measurements: Inpt. Vital signs (ST) Vital Signs (last 24 hrs)___ __ Last Charted Minimum Maximum Temp(?F) 98.0 (FEB 15 15:48 PST) 97.7 (FEB 15 00:40 PST) 98.8 (FEB 14 20:00 PST) Heart Rate 93 (FEB 15 15:48 PST) 71 (FEB 15 00:4 0 PST) 93 (FEB 14 20:00 PST) Resp Rate 16 (FEB 15 15:48 PST) 15 (FEB 15:21 PST) 20 (FEB 14 19:40 PST) SBP H 142 (FEB 15 15:48 PST) 132 (FEB 15 05:[address]) H 154 (FEB 15 00:40 PST) DBP 76 (FEB 15 15:48 PST) 73 (FEB 14 20:00 PST) 81 (FEB 15 00:40 PST) SpO2 97 (FEB 15 15:48 PST) C 88 (FEB 15 09:00 PS T) 97 (FEB 15 11:21 PST) OXYFLOW 2 (FEB 15 15:48 PST) 2 (FEB 14 19:40 PST ) 2 (FEB 14 19:40 PST) OXYDELIVERY Nasal cannula Nasal Nasal (FEB 15 15:48 PST) (FEB 14 20:00 PST) (FEB 14 2 0:00 PST) . Respiratory: Arterial Blood Gas (ST) No qualifying data available., . Physical Examination General: Alert and oriented, No acute distress. Intake and Output Stool count small: 1 (02/15/22 11:00:00) Stool count medium: 1 (02/15/22 05:00:00) Stool count medium: 1 (02/15/22 00:00:00) Stool count medium: 1 (02/14/22 20:00:00) Urine count: 1 (02/15/22 12:00:00) Urine count: 1 (02/15/22 10:00:00) Urine count: 1 (02/15/22 08:00:00) Urine count: 1 (02/15/22 05:00:00) Urine count: 1 (02/15/22 04:00:00) Urine count: 1 (02/15/22 03:00:00) Urine count: 1 (02/15/22 00:00:00) Eye: Extraocular movements are intact, Normal co njunctiva. HENT: Normocephalic. Neck: Supple, Non-tender, No carotid bruit, No j ugular venous distention. Respiratory: Respirations are non-labored. Breath sounds: Prolonged expiratory phase. Cardiovascular: Regular rhythm, S1, S2. Gastrointestinal: Soft, Non-tender, Non-distende d, Normal bowel sounds. Genitourinary: No costovertebral angle tendernes s. Musculoskeletal: Normal range of motion, Normal strength. Integumentary: Warm. Neurologic: Alert, Oriented. Psychiatric: Cooperative. Review / Management Laboratory Results Labs (Last four charted values) WBC 9.4 (FEB 15) 8.4 (FEB 14) Hgb L 11.6 (FEB 15) 12.6 (FEB 14) Hct 34.9 (FEB 15) 37.7 (FEB 14) Plt L 123 (FEB 15) L 138 (FEB 14) Na 136 (FEB 15) L 134 (FEB 14) K 4.5 (FEB 15) 3.6 (FEB 14) CO2 24 (FEB 15) 25 (FEB 14) Cl 104 (FEB 15) L 100 (FEB 14) Cr H 1.59 (FEB 15) H 1.52 (FEB 14) BUN H 27 (FEB 15) 19 (FEB 14) Glucose Random H 302 (FEB 15) 125 (FEB 14) Mg 2.0 (FEB 15) Phos L 2.4 (FEB 15) Ca 8.7 (FEB 15) 9.1 (FEB 14) Cultures Results: . Radiology results: General Diagnostic Result Type: Chest 1 Vw Portable Result Date: February 14, 2022 12:09 PST Reason For Exam: Shortness of Breath REPORT: INDICATION: Shortness of BreathCOMPARISO N: None. FINDINGS: The lungs are well expanded and clear, and the cardiac silhouette and pulmonary vessels appear normal. There is no pulmonary vascular redistribution, pleural effusion, or pneumothorax seen. Signed by: Sean Beverly MD on 02/14/2022 12:11 PM , ECG Interpretation: Recent result: Date Performed: 02/14/2022 12:20:27 PST Status: Signed Impression: SINUS RHYTHM RIGHT BUNDLE BRANCH BLOCK [1 20+ ms QRS DURATION, UPRIGHT V1, 40+ ms S IN I/aVL/V4/V5/V6] LEFT ANTERIOR FASCICULAR BLOCK [QRS AXIS <= -45, QR IN I, RS IN II] No ectopy EKG read at 1225 ABNORMAL ECG Electronic Signature: MD Denise, Oren L 02/16/20 11:37:19 . Impression and Plan Acute hypoxic respiratory failure Influenza A tracheobronchitis DM2 Renal insufficiency acute on chronic Hypertension Hyperlipidemia Thrombocytopenia OSAS Obesity GERD Plan: Patient is responding to treatment Panculture Tamiflu IV Rocephin/Zithromax Bronchodilators/ICS/O2 supplementation On IV Solu-Medrol Continue home medications Respiratory isolation Accu-Cheks/SSI Nocturnal CPAP use compliant DVT/PUD prophylaxis Condition prognosis improving Consulting Physician: Discharge medications: [facility] Meds List (Selected) Inpatient Medications Ordered Atrovent: 0.5 mg, INH, Q2H, PRN, Wheezing, NEB A MP, 02/14/22 12:54:00 PST Benadryl: 25 mg, IV PUSH, Q6H, PRN, Itching, INJ , 02/14/22 12:54:00 PST Benadryl: 25 mg, IV PUSH, QBedtime, PRN, Insomni a, INJ, 02/14/22 12:54:00 PST Cepacol Lozenges: = 1 Lozeng e, ORAL, Q4H, PRN, Sore Throat, KATELYN, 02/15/22 17:53:00 PST Dextrose 50% Inj 50 mL: = 25 mL, IV PUSH, As directed, PRN, Blood Glucose, INJ, 02/14/22 12:54:00 PST Dextrose 50% Inj 50 mL: = 50 mL, IV PUSH, As directed, PRN, Blood Glucose, INJ, 02/14/22 12:54:00 PST Dulcolax Laxative: 10 mg, RE CTAL, DAILY, PRN, Constipation, SUPP, 02/14/22 12:54:00 PST K-Phos Neutral: = 1 Tab, ORA L, As directed, PRN, Phosphorus Replacement, TAB, 02/14/22 12:52:00 PST Lovenox: 40 mg, SUBQ, DAILY, Indication = VTE Prophylaxis, INJ, 02/14/22 18:00:00 PST Protonix: 40 mg, ORAL, DAILY, EC TAB, 02/14/22 1 2:54:00 PST SOLU-Medrol: 40 mg, IV PUSH, Q6H, INJ, 02/14/22 18:00:00 PST Tamiflu: 75 mg, ORAL, BID, ORAL SUSP, 02/14/22 2 1:00:00 PST Tylenol: 650 mg, ORAL, Q6H, PRN, Other (see comment), TAB, 02/14/22 12:54:00 PST Tylenol: 650 mg, RECTAL, Q6H , PRN, Other (see comment), SUPP, 02/14/22 12:54:00 PST Zofran: 4 mg, IV PUSH, Q4H, PRN, Nausea/Vomiting , INJ, 02/14/22 12:54:00 PST albuterol-ipratopium 3-0.5 m g/3 mL inh soln (DuoNeb): = 3 mL, INH, QID, NEB AMP, 02/14/22 17:00:00 PST albuterol: 1.25 mg, INH, Q2H, PRN, Wheezing, NEB AMP, 02/14/22 12:54:00 PST aspirin: 81 mg, ORAL, DAILY, EC TAB, 02/14/22 12 :52:00 PST atorvastatin: 10 mg, ORAL, QBedtime, TAB, 21:00:00 PST chlorthalidone 25 mg oral ta blet: chlorthalidone 25 mg oral tablet, = 0.5 Tab, ORAL, DAILY, 02/14/22 12:52:00 PST cloNIDine: 0.1 mg, ORAL, Q6H , PRN, Other (see comment), TAB, 02/14/22 12:54:00 PST docusate-senna 50 mg-8.6 mg oral tablet: = 1 Tab, ORAL, BID, TAB, 02/14/22 21:00:00 PST fenofibrate: 145 mg, ORAL, DAILY, TAB, 02/14/22 12:52:00 PST fluticasone 100 mcg inhalati on powder: = 1 Puff, INH, DAILY, POWDER, 02/14/22 12:52:00 PST glucagon: 1 mg, SUBQ, As dir ected, PRN, Blood Glucose, INJ, 02/14/22 12:54:00 PST insulin lispro Correction Sc julia Med (Body wt 70-100kg): correction scale, SUBQ, AC&Bed, 02/14/22 21:00:00 PST magnesium oxide: 400 mg, ORA L, BID, PRN, Magnesium Replacement, TAB, 02/14/22 12:51:00 PST magnesium sulfate 2 g in SWF I 50 mL: 2 gm = 50 mL, IVPB, [id number], PRN, Magnesium Replacement, IV SOLN, 02/14/22 12:51:00 PST, 50 mL/hr, 60 min potassium bicarbonate-citric acid: 20 mEq, ORAL, As directed, PRN, Potassium Replacement, EFFER TAB, 02/14/22 12:51:00 PST potassium bicarbonate-citric acid: 40 mEq, ORAL, As directed, PRN, Potassium Replacement, EFFER TAB, 02/14/22 12:51:00 PST potassium chloride 10 mEq in SWFI 100 mL: 10 mEq = 100 mL, IVPB, As directed, PRN, Potassium Replacement, IV SOLN, 02/14/22 12:51:00 PST, 100 mL/hr, 60 min sodium chloride 0.9% 1,000 m L: 1,000 mL, IV, Routine, 02/14/22 12:54:00 PST, 70 mL/hr, 14.3 hr, Order Weight 108, kg Documented Medications Documented A/Fish Oil 88519 u oral capsule: 0 Refill(s), Ma intenance Aspir 81 oral enteric coated tablet: = 1 Tab, ORAL, DAILY, 0 Refill(s), Maintenance NovoLOG FlexPen: 0 Refill(s), Maintenance Semglee: 70 mg evenings, 0 Refill(s), Maintenanc e albuterol: 2.5 mg, INH, [id number], 0 Refill(s ), Maintenance atorvastatin 10 mg oral tablet: = 1 Tab, ORAL, DAILY, 0 Refill(s), Maintenance chlorthalidone 25 mg oral ta blet: = 1 Tab, ORAL, DAILY, 1/2 daily, 0 Refill(s), Maintenance fenofibrate 145 mg oral tablet: = 1 Tab, ORAL, DAILY, 0 Refill(s), Maintenance fluticasone 50 mcg/inh inhal ation powder: 1 Puff, INH, BID, 0 Refill(s), Maintenance omeprazole 40 mg oral delaye d release capsule: 1 Cap, ORAL, DAILY, 0 Refill(s), Maintenance. 11092-4 Male Hospitalist Progress 02/15/2022 [facility] Note Patient: ROGER FREDERICK FIN: 42 [id number] [place] Age: 76 years Legal Sex: Male : 1945 Author: MD Christopher, Wilfredo Basic Information Patient was admitted for respiratory failure 2/2 influenza A Review of Systems Constitutional: Negative. Respiratory: Shortness of breath. Cardiovascular: Negative. Gastrointestinal: Negative. Musculoskeletal: Negative. Integumentary: Negative. Neurologic: Negative. Psychiatric: Negative. Health Status Allergies: Allergic Reactions (Selected) No Known Medication Allergies, Allergies (1) Active Severity Reaction No Known Medication Allergies None Documented Current medications: (Selected) Inpatient Medications Ordered Atrovent: 0.5 mg, INH, Q2H, PRN, Wheezing, NEB A MP, 02/14/22 12:54:00 PST Benadryl: 25 mg, IV PUSH, Q6H, PRN, Itching, INJ , 02/14/22 12:54:00 PST Benadryl: 25 mg, IV PUSH, QBedtime, PRN, Insomni a, INJ, 02/14/22 12:54:00 PST Dextrose 50% Inj 50 mL: = 25 mL, IV PUSH, As directed, PRN, Blood Glucose, INJ, 02/14/22 12:54:00 PST Dextrose 50% Inj 50 mL: = 50 mL, IV PUSH, As directed, PRN, Blood Glucose, INJ, 02/14/22 12:54:00 PST Dulcolax Laxative: 10 mg, RE CTAL, DAILY, PRN, Constipation, SUPP, 02/14/22 12:54:00 PST K-Phos Neutral: = 1 Tab, ORA L, As directed, PRN, Phosphorus Replacement, TAB, 02/14/22 12:52:00 PST Lovenox: 40 mg, SUBQ, DAILY, Indication = VTE Prophylaxis, INJ, 02/14/22 18:00:00 PST Protonix: 40 mg, ORAL, DAILY, EC TAB, 02/14/22 1 2:54:00 PST SOLU-Medrol: 40 mg, IV PUSH, Q6H, INJ, 02/14/22 18:00:00 PST Tamiflu: 75 mg, ORAL, BID, ORAL SUSP, 02/14/22 2 1:00:00 PST Tylenol: 650 mg, ORAL, Q6H, PRN, Other (see comment), TAB, 02/14/22 12:54:00 PST Tylenol: 650 mg, RECTAL, Q6H , PRN, Other (see comment), SUPP, 02/14/22 12:54:00 PST Zofran: 4 mg, IV PUSH, Q4H, PRN, Nausea/Vomiting , INJ, 02/14/22 12:54:00 PST albuterol-ipratopium 3-0.5 m g/3 mL inh soln (DuoNeb): = 3 mL, INH, QID, NEB AMP, 02/14/22 17:00:00 PST albuterol: 1.25 mg, INH, Q2H, PRN, Wheezing, NEB AMP, 02/14/22 12:54:00 PST aspirin: 81 mg, ORAL, DAILY, EC TAB, 02/14/22 12 :52:00 PST atorvastatin: 10 mg, ORAL, QBedtime, TAB, 21:00:00 PST chlorthalidone 25 mg oral ta blet: chlorthalidone 25 mg oral tablet, = 0.5 Tab, ORAL, DAILY, 02/14/22 12:52:00 PST cloNIDine: 0.1 mg, ORAL, Q6H , PRN, Other (see comment), TAB, 02/14/22 12:54:00 PST docusate-senna 50 mg-8.6 mg oral tablet: = 1 Tab, ORAL, BID, TAB, 02/14/22 21:00:00 PST fenofibrate: 145 mg, ORAL, DAILY, TAB, 02/14/22 12:52:00 PST fluticasone 100 mcg inhalati on powder: = 1 Puff, INH, DAILY, POWDER, 02/14/22 12:52:00 PST glucagon: 1 mg, SUBQ, As dir ected, PRN, Blood Glucose, INJ, 02/14/22 12:54:00 PST insulin lispro Correction Sc julia Med (Body wt 70-100kg): correction scale, SUBQ, AC&Bed, 02/14/22 21:00:00 PST magnesium oxide: 400 mg, ORA L, BID, PRN, Magnesium Replacement, TAB, 02/14/22 12:51:00 PST magnesium sulfate 2 g in SWF I 50 mL: 2 gm = 50 mL, IVPB, [id number], PRN, Magnesium Replacement, IV SOLN, 02/14/22 12:51:00 PST, 50 mL/hr, 60 min potassium bicarbonate-citric acid: 20 mEq, ORAL, As directed, PRN, Potassium Replacement, EFFER TAB, 02/14/22 12:51:00 PST potassium bicarbonate-citric acid: 40 mEq, ORAL, As directed, PRN, Potassium Replacement, EFFER TAB, 02/14/22 12:51:00 PST potassium chloride 10 mEq in SWFI 100 mL: 10 mEq = 100 mL, IVPB, As directed, PRN, Potassium Replacement, IV SOLN, 02/14/22 12:51:00 PST, 100 mL/hr, 60 min sodium chloride 0.9% 1,000 m L: 1,000 mL, IV, Routine, 02/14/22 12:54:00 PST, 70 mL/hr, 14.3 hr, Order Weight 108, kg Documented Medications Documented A/Fish Oil 44333 u oral capsule: 0 Refill(s), Ma intenance Aspir 81 oral enteric coated tablet: = 1 Tab, ORAL, DAILY, 0 Refill(s), Maintenance NovoLOG FlexPen: 0 Refill(s), Maintenance Semglee: 70 mg evenings, 0 Refill(s), Maintenanc e albuterol: 2.5 mg, INH, [id number], 0 Refill(s ), Maintenance atorvastatin 10 mg oral tablet: = 1 Tab, ORAL, DAILY, 0 Refill(s), Maintenance chlorthalidone 25 mg oral ta blet: = 1 Tab, ORAL, DAILY, 1/2 daily, 0 Refill(s), Maintenance fenofibrate 145 mg oral tablet: = 1 Tab, ORAL, DAILY, 0 Refill(s), Maintenance fluticasone 50 mcg/inh inhal ation powder: 1 Puff, INH, BID, 0 Refill(s), Maintenance omeprazole 40 mg oral delaye d release capsule: 1 Cap, ORAL, DAILY, 0 Refill(s), Maintenance, Medications (31) Active Scheduled: (12) albuterol-ipratrop 3-0.5 mg/3 mL Neb Soln 3 mL, INH, QID aspirin 81 mg EC Tab 81 mg 1 EC_Tab, ORAL, DAILY atorvastatin 10 mg Tab 10 mg 1 Tab, ORAL, QBedti me chlorthalidone 25 mg oral tablet 0.5 Tab, ORAL, DAILY docusate-senna 50-8.6 mg Tab 1 Tab, ORAL, BID enoxaparin 40 mg/ 0.4 mL Inj Syringe 40 mg 0.4 m L, SUBQ, DAILY Fenofibrate 145 mg Tab 145 mg 1 Tab, ORAL, DAILY fluticasone furoate 100 mcg/inh 1 Puff, INH, NOEL LY insulin lispro (Admelog) 100 units/mL, 3 mL MDV correction scale, SUBQ, AC&Bed methylPRED sod succ 40 mg/mL Inj 40 mg 1 mL, IV PUSH, Q6H oseltamivir 6 mg/mL Oral Liq 1 mL 75 mg 12.5 mL, ORAL, BID pantoprazole 40 mg EC Tab 40 mg 1 Tab, ORAL, NOEL LY Continuous: (1) sodium chloride 0.9% 1,000 mL 1,000 mL, IV, 70 m L/hr PRN: (18) acetaminophen 325 mg Tab 650 mg 2 ea, ORAL, Q6H acetaminophen 650 mg Supp 650 mg 1 Supp, RECTAL, Q6H albuterol 1.25 mg/3 mL (0.042%) Inh Soln 1.25 mg 3 mL, INH, Q2H bisacodyl 10 mg Supp 10 mg 1 Supp, RECTAL, DAILY cloNIDine 0.1 mg Tab 0.1 mg 1 Tab, ORAL, Q6H Dextrose 50% Inj 50 mL Syr 25 mL, IV PUSH, As di rected Dextrose 50% Inj 50 mL Syr 50 mL, IV PUSH, As di rected diphenhydrAMINE 50 mg/mL Inj 1 mL SDV 25 mg 0.5 mL, IV PUSH, Q6H diphenhydrAMINE 50 mg/mL Inj 1 mL SDV 25 mg 0.5 mL, IV PUSH, QBedtime glucagon 1 mg Inj SDV 1 mg, SUBQ, As directed ipratropium 0.5mg/2.5 mL (0.02%) Neb Amp 0.5 mg 2.5 mL, INH, Q2H K-Bicarb- citric acid 20 mEq Effer Tab 20 mEq 1 Tab, ORAL, As directed K-Bicarb- citric acid 20 mEq Effer Tab 40 mEq 2 Tab, ORAL, As directed K-phos neutral Tab 1 Tab, ORAL, As directed magnesium Oxide 400 mg Tab 400 mg 1 Tab, ORAL, B ID magnesium sulfate / SWFI 2 gm 50 mL, IVPB, Q12H- Interval ondansetron 2 mg/mL, 2 mL Inj 4 mg 2 mL, IV PUSH , Q4H potassium chloride 10 mEq 100 mL, IVPB, As direc josias Problem list: All Problems Current smoker / [id number] / Confirmed Manage infection control / [id number] / Provisio nal Physical Examination Vital Signs 02/15/2022 08:00 PST Oxygen delivery Nasal cannu la Oxygen flow 2 L/min 02/15/2022 07:50 PST Temperature (F) 97.9 DegF N ormal Peripheral Pulse Rate 90 bpm Normal Respiratory rate 17 br/min Normal Systolic BP 145 mmHg HI Diastolic BP 77 mmHg Normal Pulse Oximetry 96 % Pulse oximetry method Continuous Oxygen delivery Nasal cannula Activity with SPO2 monitoring At rest Oxygen flow 2 L/min Temp site Oral BP position Lying BP location Right arm Blood Pressure Method Automatic Peripheral pulse site Non-invasive BP device 02/15/2022 07:44 PST Peripheral Pulse Rate 82 bp m Normal Respiratory rate 18 br/min Normal 02/15/2022 07:35 PST Pulse Oximetry 95 % Oxygen delivery Room air 02/15/2022 07:34 PST Peripheral Pulse Rate 80 bp m Normal Respiratory rate 18 br/min Normal 02/15/2022 05:13 PST Temperature (F) 98 DegF Nor mal Peripheral Pulse Rate 76 bpm Normal Respiratory rate 18 br/min Normal Systolic BP 132 mmHg Normal Diastolic BP 74 mmHg Normal Pulse Oximetry 94 % Pulse oximetry method Continuous Oxygen delivery CPAP/NIPPV Activity with SPO2 monitoring At rest Oxygen flow 2 L/min Temp site Oral BP position Lying BP location Right arm Blood Pressure Method Automatic Peripheral pulse site Non-invasive BP device 02/15/2022 00:40 PST Temperature (F) 97.7 DegF N ormal Peripheral Pulse Rate 71 bpm Normal Respiratory rate 20 br/min Normal Systolic BP 154 mmHg HI Diastolic BP 81 mmHg Normal Pulse Oximetry 94 % Pulse oximetry method Continuous Oxygen delivery CPAP/NIPPV (Modified) Activity with SPO2 monitoring At rest Oxygen flow 2 L/min Temp site Oral BP position Lying BP location Right arm Peripheral pulse site Non-invasive BP device 02/14/2022 20:01 PST Oxygen delivery Nasal cannu la Oxygen flow 2 L/min 02/14/2022 20:00 PST Temperature (F) 98.8 DegF N ormal Peripheral Pulse Rate 93 bpm Normal Respiratory rate 20 br/min Normal Systolic BP 134 mmHg Normal Diastolic BP 73 mmHg Normal Pulse oximetry method Continuous Oxygen delivery Nasal cannula Oxygen delivery Nasal cannula Activity with SPO2 monitoring At rest Oxygen flow 2 L/min Oxygen flow 2 L/min Temp site Axillary BP position Lying BP location Right arm Blood Pressure Method Automatic Peripheral pulse site Non-invasive BP device 02/14/2022 19:50 PST Peripheral pulse site Pulse oximetry device 02/14/2022 19:40 PST Peripheral Pulse Rate 87 bp m Normal Respiratory rate 20 br/min Normal Oxygen flow 2 L/min Peripheral pulse site Non-invasive BP device 02/14/2022 17:40 PST Respiratory rate 20 br/min Normal Pulse Oximetry 97 % Oxygen delivery Nasal cannula Oxygen flow 2 L/min 02/14/2022 17:37 PST Temperature (F) 98.8 DegF N ormal Peripheral Pulse Rate 89 bpm Normal Respiratory rate 18 br/min Normal Systolic BP 126 mmHg Normal Diastolic BP 67 mmHg Normal Pulse Oximetry 96 % Pulse oximetry method Continuous Oxygen delivery Nasal cannula Activity with SPO2 monitoring At rest Oxygen flow 2 L/min Temp site Oral BP position Lying BP location Right arm Blood Pressure Method Automatic Peripheral pulse site Non-invasive BP device 02/14/2022 16:00 PST Heart Rate Monitored 94 bpm Normal Respiratory rate 27 br/min HI Systolic BP 137 mmHg Normal Diastolic BP 73 mmHg Normal Pulse Oximetry 95 % Oxygen delivery Nasal cannula BP location Right arm 02/14/2022 14:55 PST Heart Rate Monitored 88 bpm Normal Respiratory rate 15 br/min Normal Pulse Oximetry 94 % Oxygen delivery Nasal cannula Oxygen flow 2 L/min BP location Right arm 02/14/2022 14:51 PST Respiratory rate 25 br/min HI Pulse Oximetry 90 % Oxygen delivery Nasal cannula Oxygen flow 2 L/min 02/14/2022 14:42 PST Temperature (F) 99.3 DegF N ormal 02/14/2022 14:00 PST Heart Rate Monitored 100 bp m HI Respiratory rate 25 br/min HI Pulse Oximetry 96 % Oxygen delivery Nasal cannula Oxygen flow 2 L/min BP location Right arm 02/14/2022 13:54 PST Heart Rate Monitored 92 bpm Normal Respiratory rate 20 br/min Normal Systolic BP 129 mmHg Normal Diastolic BP 58 mmHg LOW Pulse Oximetry 96 % Oxygen delivery Nasal cannula Oxygen flow 2 L/min Mean BP 81 mmHg Normal BP location Right arm 02/14/2022 13:30 PST Oxygen delivery Nasal cannu la Oxygen flow 2 L/min 02/14/2022 13:21 PST Peripheral Pulse Rate 98 bp m Normal Respiratory rate 20 br/min Normal Pulse Oximetry 99 % Oxygen flow 2 L/min Oxygen %/FiO2 28 % Normal Peripheral pulse site Non-invasive BP device 02/14/2022 13:07 PST Peripheral Pulse Rate 97 bp m Normal Respiratory rate 16 br/min Normal Pulse Oximetry 98 % Oxygen flow 2 L/min Oxygen %/FiO2 28 % Normal Peripheral pulse site Non-invasive BP device 02/14/2022 12:51 PST Temperature (F) 101.3 DegF HI 02/14/2022 11:30 PST Oxygen delivery Room air 02/14/2022 11:23 PST Pulse Oximetry 94 % Oxygen delivery Nasal cannula (Modified) Oxygen flow 2 L/min 02/14/2022 11:21 PST Temperature (F) 101.6 DegF HI Peripheral Pulse Rate 94 bpm Normal Respiratory rate 22 br/min HI Systolic BP 155 mmHg HI Diastolic BP 65 mmHg Normal Pulse Oximetry 90 % Oxygen delivery Room air Temp site Oral BP location Right arm Peripheral pulse site Pulse oximetry device Vital Signs (last 24 hrs)___ __ Last Charted Minimum Maximum Temp(?F) 97.9 (FEB 15 07:50 PST) 97.7 (FEB 15 00:40 PST) H 101.6 (FEB 14 11:21 PST) Heart Rate 90 (FEB 15 07:50 PST) 71 (FEB 15 00:40 PST) H 100 (FEB 14 14:00 PST) Resp Rate 17 (FEB 15 07:50 PST) 15 (FEB 14 14:55 PST) H 27 (FEB 14 16:00 PST) SBP H 145 (FEB 15 07:50 PST) 126 (FEB 14 17:[address]) H 155 (FEB 14 11:21 PST) DBP 77 (FEB 15 07:50 PST) L 58 (FEB 14 13:54 PST ) 81 (FEB 15 00:40 PST) SpO2 96 (FEB 15 07:50 PST) 90 (FEB 14 11:21 PST) 99 (FEB 14 13:21 PST) OXYFIO2 28 (FEB 14 13:21 PST) 28 (FEB 14 13:[address]) 28 (FEB 14 13:07 PST) OXYFLOW 2 (FEB 15 08:00 PST) 2 (FEB 14 11:23 PST ) 2 (FEB 14 11:23 PST) OXYDELIVERY Nasal cannula Room a Room a (FEB 15 08:00 PST) (FEB 14 11:21 PST) (FEB 14 1:21 PST) Measurements from flowsheet : Measurements 02/15/2022 06:00 PST Weight (kg) 109.9 kg Weight measured method Bed scale 02/14/2022 17:55 PST Weight (kg) 108 kg Dose calculation weight (kg) 108 kg Body Mass Index 35.17 kg/m2 HI Height/Length (cm) 175.24 cm 02/14/2022 17:39 PST Weight (kg) 109.3 kg 02/14/2022 11:21 PST Weight (kg) 108 kg Dose calculation weight (kg) 108 kg General: No acute distress. Neck: Supple. Respiratory: Breath sounds are equal. Cardiovascular: Normal rate, Regular rhythm, No murmur. Gastrointestinal: Soft, Non-tender, Non-distende d. Genitourinary: No costovertebral angle tendernes s. Musculoskeletal Normal range of motion. Neurologic: No focal deficits. Psychiatric: Cooperative. Review / Management Results review: Labs (Last four charted values) WBC 9.4 (FEB 15) 8.4 (FEB 14) Hgb L 11.6 (FEB 15) 12.6 (FEB 14) Hct 34.9 (FEB 15) 37.7 (FEB 14) Plt L 123 (FEB 15) L 138 (FEB 14) Na 136 (FEB 15) L 134 (FEB 14) K 4.5 (FEB 15) 3.6 (FEB 14) CO2 24 (FEB 15) 25 (FEB 14) Cl 104 (FEB 15) L 100 (FEB 14) Cr H 1.59 (FEB 15) H 1.52 (FEB 14) BUN H 27 (FEB 15) 19 (FEB 14) Glucose Random H 302 (FEB 15) 125 (FEB 14) Mg 2.0 (FEB 15) Phos L 2.4 (FEB 15) Ca 8.7 (FEB 15) 9.1 (FEB 14) . Impression and Plan #Acute hypoxemic respiratory failure #Influenza A Tele Tamiflu 75 mg twice daily DuoNeb breathing treatments Systemic corticosteroids Maintain adequate oxygenation, O2 as needed Pulmonology consult noted #Hypertension Continue chlorthalidone 25 mg half tab daily Maintain BP control, as needed medication availa ble #Hyperlipidemia Continue fenofibrate 145 mg daily #Type 2 diabetes mellitus Fingerstick blood glucose Insulin per sliding scale Consistent carbohydrate diet #Gastroesophageal reflux disease Continue Protonix 40 mg daily #Asthma Continue fluticasone 50 mcg inhalation 1 puff tw ice daily Maintain adequate oxygenation, O2 as needed #Obstructive sleep apnea Continue CPAP at night PUD/VTE prophylaxis, Protonix, Lovenox Prognosis: GUARDED and will depend to patient's response to treatment [id number] Male Consult note 02/15/2022 60 [facility] Patient: ROGER FREDERICK FIN: 41 [id number] [place] Age: 76 years Legal Sex: Male : 1945 Author: MD Ortiz Vijay Basic Information Provider information/ cc: Physicians Involved With Care ?? Admitting: ? MD Main Atefeh ?? Attending: ? MD Main Atefeh ?? Consulting: ? MD Ortiz Vijay ?? Primary Care: ??? NONE, . Acute hypoxic respiratory fa ilure/influenza A tracheobronchitis/asthma exacerbation Chief Complaint Increasing cough congestion fever shortness of b reath History of Present Illness The patient is a 36-year-old male with possible history of asthma/OSAS/DM2/hypertension hyperlipidemia obesity admitted with increasing cough shortness of breath chest congestion for last 4 to 5 days an d now with fevers and body a ches. He is [facility]. Laboratory work-up in the ER with white count of 8 platelets 1 38,000 CRP 12.6 sodium 134 creatinine 1.5 ALT 53 AST 79 lactate 2.17 patient was h ypoxic requiring O2 2 L foll ow-up ABG with a pH of 7.44 PCO2 to 33 PO2 71 bicarb 22 O2 saturation 95%. Patient is influenza A positive COVID-negative chest x-ray no acute infiltrates. Patient is hospitalized. Review of Systems Constitutional: Fever, Fatigue. Eye: Negative. Ear/Nose/Mouth/Throat: Negative. Respiratory: Shortness of breath, Cough, Wheezin g, Apnea. Cardiovascular: Negative. Gastrointestinal: Negative. Genitourinary: Negative. Hematology/Lymphatics: Negative. Endocrine: Negative. Immunologic: Negative. Musculoskeletal: Joint pain. Integumentary: Negative. Neurologic: Alert and oriented X4. Psychiatric: Anxiety. ROS reviewed as documented in chart Health Status Allergies: Allergic Reactions (All) No Known Medication Allergies Current medications: Home Medications (12) Active A/Fish Oil 41382 u oral capsule ?(Documented?08/01) acetaminophen 650 mg rectal suppository 650 mg = 1 Supp, PRN, RECTAL, Q4H?(Documented?02/14/22) acetaminophen 650 mg rectal suppository 650 mg = 1 Supp, PRN, RECTAL, Q4H?(Documented?02/14/22) albuterol 2.5 mg, INH, [id number]?(Documented? 02/14/22) Aspir 81 oral enteric coated tablet 81 mg = 1 Tab, ORAL, DAILY?(Documented?02/14/22) atorvastatin 10 mg oral tabl et 10 mg = 1 Tab, ORAL, DAILY?(Documented?02/14/22) chlorthalidone 25 mg oral ta blet 25 mg = 1 Tab, ORAL, DAILY?(Documented?02/14/22) fenofibrate 145 mg oral tabl et 145 mg = 1 Tab, ORAL, DAILY?(Documented?02/14/22) fluticasone 50 mcg/inh inhal ation powder 1 Puff, INH, BID?(Documented?02/14/22) NovoLOG FlexPen ?(Documented?02/14/22) omeprazole 40 mg oral delaye d release capsule 40 mg = 1 Cap, ORAL, DAILY?(Documented?02/14/22) Semglee ?(Documented?02/14/22) , (Selected) Inpatient Medications Ordered Atrovent: 0.5 mg, INH, Q2H, PRN, Wheezing, NEB A MP, 02/14/22 12:54:00 PST Benadryl: 25 mg, IV PUSH, Q6H, PRN, Itching, INJ , 02/14/22 12:54:00 PST Benadryl: 25 mg, IV PUSH, QBedtime, PRN, Insomni a, INJ, 02/14/22 12:54:00 PST Dextrose 50% Inj 50 mL: = 25 mL, IV PUSH, As directed, PRN, Blood Glucose, INJ, 02/14/22 12:54:00 PST Dextrose 50% Inj 50 mL: = 50 mL, IV PUSH, As directed, PRN, Blood Glucose, INJ, 02/14/22 12:54:00 PST Dulcolax Laxative: 10 mg, RE CTAL, DAILY, PRN, Constipation, SUPP, 02/14/22 12:54:00 PST K-Phos Neutral: = 1 Tab, ORA L, As directed, PRN, Phosphorus Replacement, TAB, 02/14/22 12:52:00 PST Lovenox: 40 mg, SUBQ, DAILY, Indication = VTE Prophylaxis, INJ, 02/14/22 18:00:00 PST Protonix: 40 mg, ORAL, DAILY, EC TAB, 02/14/22 1 2:54:00 PST SOLU-Medrol: 40 mg, IV PUSH, Q6H, INJ, 02/14/22 18:00:00 PST Tamiflu: 75 mg, ORAL, BID, ORAL SUSP, 02/14/22 2 1:00:00 PST Tylenol: 650 mg, ORAL, Q6H, PRN, Other (see comment), TAB, 02/14/22 12:54:00 PST Tylenol: 650 mg, RECTAL, Q6H , PRN, Other (see comment), SUPP, 02/14/22 12:54:00 PST Zofran: 4 mg, IV PUSH, Q4H, PRN, Nausea/Vomiting , INJ, 02/14/22 12:54:00 PST albuterol-ipratopium 3-0.5 m g/3 mL inh soln (DuoNeb): = 3 mL, INH, QID, NEB AMP, 02/14/22 17:00:00 PST albuterol: 1.25 mg, INH, Q2H, PRN, Wheezing, NEB AMP, 02/14/22 12:54:00 PST aspirin: 81 mg, ORAL, DAILY, EC TAB, 02/14/22 12 :52:00 PST atorvastatin: 10 mg, ORAL, QBedtime, TAB, 21:00:00 PST chlorthalidone 25 mg oral ta blet: chlorthalidone 25 mg oral tablet, = 0.5 Tab, ORAL, DAILY, 02/14/22 12:52:00 PST cloNIDine: 0.1 mg, ORAL, Q6H , PRN, Other (see comment), TAB, 02/14/22 12:54:00 PST docusate-senna 50 mg-8.6 mg oral tablet: = 1 Tab, ORAL, BID, TAB, 02/14/22 21:00:00 PST fenofibrate: 145 mg, ORAL, DAILY, TAB, 02/14/22 12:52:00 PST fluticasone 100 mcg inhalati on powder: = 1 Puff, INH, DAILY, POWDER, 02/14/22 12:52:00 PST glucagon: 1 mg, SUBQ, As dir ected, PRN, Blood Glucose, INJ, 02/14/22 12:54:00 PST magnesium oxide: 400 mg, ORA L, BID, PRN, Magnesium Replacement, TAB, 02/14/22 12:51:00 PST magnesium sulfate 2 g in SWF I 50 mL: 2 gm = 50 mL, IVPB, [id number], PRN, Magnesium Replacement, IV SOLN, 02/14/22 12:51:00 PST, 50 mL/hr, 60 min potassium bicarbonate-citric acid: 20 mEq, ORAL, As directed, PRN, Potassium Replacement, EFFER TAB, 02/14/22 12:51:00 PST potassium bicarbonate-citric acid: 40 mEq, ORAL, As directed, PRN, Potassium Replacement, EFFER TAB, 02/14/22 12:51:00 PST potassium chloride 10 mEq in SWFI 100 mL: 10 mEq = 100 mL, IVPB, As directed, PRN, Potassium Replacement, IV SOLN, 02/14/22 12:51:00 PST, 100 mL/hr, 60 min sodium chloride 0.9% 1,000 m L: 1,000 mL, IV, Routine, 02/14/22 12:54:00 PST, 70 mL/hr, 14.3 hr, Order Weight 108, kg Documented Medications Documented A/Fish Oil 46192 u oral capsule: 0 Refill(s), Ma intenance Aspir 81 oral enteric coated tablet: = 1 Tab, ORAL, DAILY, 0 Refill(s), Maintenance NovoLOG FlexPen: 0 Refill(s), Maintenance Semglee: 70 mg evenings, 0 Refill(s), Maintenanc e acetaminophen 650 mg rectal suppository: = 1 Supp, RECTAL, Q4H, PRN PRN for fever, 0 Refill(s), Maintenance acetaminophen 650 mg rectal suppository: = 1 Supp, RECTAL, Q4H, PRN PRN for pain, 0 Refill(s), Maintenance albuterol: 2.5 mg, INH, [id number], 0 Refill(s ), Maintenance atorvastatin 10 mg oral tablet: = 1 Tab, ORAL, DAILY, 0 Refill(s), Maintenance chlorthalidone 25 mg oral ta blet: = 1 Tab, ORAL, DAILY, 1/2 daily, 0 Refill(s), Maintenance fenofibrate 145 mg oral tablet: = 1 Tab, ORAL, DAILY, 0 Refill(s), Maintenance fluticasone 50 mcg/inh inhal ation powder: 1 Puff, INH, BID, 0 Refill(s), Maintenance omeprazole 40 mg oral delaye d release capsule: 1 Cap, ORAL, DAILY, 0 Refill(s), Maintenance, Active inpatient medications ACTIVE INPT MEDS: albuterol-ipratropium (albut luna-ipratopium 3-0.5 mg/3 mL inh soln (DuoNeb)) 3 mL INH QID aspirin 81 mg ORAL DAILY atorvastatin 10 mg ORAL QBedtime docusate-senna (docusate-senna 50 mg-8.6 mg oral tablet) 1 Tab ORAL BID enoxaparin (Lovenox) 40 mg SUBQ DAILY fenofibrate 145 mg ORAL DAILY fluticasone (fluticasone 100 mcg inhalation powd er) 1 Puff INH DAILY methylPREDNISolone (SOLU-Medrol) 40 mg IV PUSH Q 6H Non-formulary medication (chlorthalidone 25 mg oral tablet) 0.5 Tab ORAL DAILY oseltamivir (Tamiflu) 75 mg ORAL BID pantoprazole (Protonix) 40 mg ORAL DAILY ACTIVE PRN MEDS: acetaminophen (Tylenol) 650 mg RECTAL Q6H acetaminophen (Tylenol) 650 mg ORAL Q6H albuterol 1.25 mg INH Q2H bisacodyl (Dulcolax Laxative) 10 mg RECTAL DAILY cloNIDine 0.1 mg ORAL Q6H diphenhydrAMINE (Benadryl) 25 mg IV PUSH Q6H diphenhydrAMINE (Benadryl) 25 mg IV PUSH QBedtim e glucagon 1 mg SUBQ As directed glucose (Dextrose 50% Inj 50 mL) 25 mL IV PUSH A s directed glucose (Dextrose 50% Inj 50 mL) 50 mL IV PUSH A s directed ipratropium (Atrovent) 0.5 mg INH Q2H magnesium oxide 400 mg ORAL BID magnesium sulfate (magnesium sulfate 2 g in SWFI 50 mL) 2 gm IVPB [id number] ondansetron (Zofran) 4 mg IV PUSH Q4H potassium bicarbonate-citric acid 20 mEq ORAL As directed potassium bicarbonate-citric acid 40 mEq ORAL As directed potassium chloride (potassiu m chloride 10 mEq in SWFI 100 mL) 10 mEq IVPB As directed potassium phosphate-sodium phosphate (K-Phos Tara tral) 1 Tab ORAL As directed ONE TIME MEDS: (Completed) acetaminophen 1,000 mg ORAL ONCE (Completed) albuterol 5 mg INH ONCE (Completed) azithromycin 500 mg IV ONCE (Completed) cefTRIAXone (Rocephin) 2 gm IV ONCE (Completed) ipratropium (Atrovent) 0.5 mg INH ON CE (Completed) methylPREDNISolone (SOLU-Medrol) 60 mg IV ONCE ACTIVE IV MEDS: sodium chloride 0.9% 1,000 mL 1,000 mL 70 mL/hr Histories Past Medical History: No active or resolved past m edical history items have been selected or recorded. Family History: No family history items have been selected or re corded. Procedure history: No active procedure history items have been ruben cted or recorded. Social History Social and Psychosocial Habits *Alcohol Screen 02/14/2022 *How often do you have a drink contai johanny alcohol? Never (0) *How many standard drinks containing alcohol do you have on Never (0) *How often do you have six or more drinks on on e occasion? Never (0) *Ready to change? N/A *Home/Environment Screen 02/14/2022 *Living situation: Home/Independent Home type: Single family house Lives with: Significant other *Tobacco Use Screen 02/14/2022 Is there a smoker in the household? N o *Do you have concerns about tobacco use in hous ehold? No *Over the past 30 days, wha t and how much have you smoked? 4 or less cigarettes(less *Over the past 30 days, what has been your smok eless tobacco Never *Are you ready to quit? N/A *Substance Abuse Screen 02/14/2022 *Do you have concerns about substance abuse for yourself or No *Nutrition Screen 02/14/2022 *1. Decreased appetite Yes (1) *2. Recent unintended weight loss None (0) *3. If unable to answer, does pt look frail/und erwt? No (0) *Nutritional Risks: No nutritional risk dusty, pt is diabetic Type of diet: Diabetic diet *Spiritual/Cultural Screen 02/14/2022 *Spiritual support is available to yo u; would you like me to No *Is Christianity/Spirituality/Tavia important to yo u as you cope No . Physical Examination VS/Measurements: Inpt. Vital signs (ST) Vital Signs (last 24 hrs)___ __ Last Charted Minimum Maximum Temp(?F) 98.8 (FEB 14 17:37 PST) 98.8 (FEB 14 17:37 PST) H 101.6 (FEB 14 11:21 PST) Heart Rate 89 (FEB 14 17:37 PST) 88 (FEB 14 14:55 PST) H 100 (FEB 14 14:00 PST) Resp Rate 20 (FEB 14 17:40 PST) 15 (FEB 14 14:55 PST) H 27 (FEB 14 16:00 PST) SBP 126 (FEB 14 17:37 PST) 126 (FEB 14 17:37 PST ) H 155 (FEB 14 11:21 PST) DBP 67 (FEB 14 17:37 PST) L 58 (FEB 14 13:54 PST ) 73 (FEB 14 16:00 PST) SpO2 97 (FEB 14 17:40 PST) 90 (FEB 14 11:21 PST) 99 (FEB 14 13:21 PST) OXYFIO2 28 (FEB 14 13:21 PST) 28 (FEB 14 13:[address]) 28 (FEB 14 13:07 PST) OXYFLOW 2 (FEB 14 17:40 PST) 2 (FEB 14 11:23 PST ) 2 (FEB 14 11:23 PST) OXYDELIVERY Nasal cannula Room a Room a (FEB 14 17:40 PST) (FEB 14 11:21 PST) (FEB 14 1 1:21 PST) . General: Alert and oriented, Mild distress. Eye: Extraocular movements are intact, Normal co njunctiva. HENT: Normocephalic. Neck: Supple, Non-tender, No carotid bruit, No j ugular venous distention. Respiratory: Respirations: Tachypneic. Breath sounds: Bilateral, Rhonchi present, Prol onged expiratory phase. Cardiovascular: Regular rhythm, S1, S2. Gastrointestinal: Soft, Non-tender, Non-distende d, Normal bowel sounds. Genitourinary: No costovertebral angle tendernes s. Musculoskeletal: Normal range of motion. Integumentary: Warm. Neurologic: Alert. Cognition and Speech: Oriented. Psychiatric: Cooperative. Review / Management Results review: Labs (Last four charted values) WBC 8.4 (FEB 14) Hgb 12.6 (FEB 14) Hct 37.7 (FEB 14) Plt L 138 (FEB 14) Na L 134 (FEB 14) K 3.6 (FEB 14) CO2 25 (FEB 14) Cl L 100 (FEB 14) Cr H 1.52 (FEB 14) BUN 19 (FEB 14) Glucose Random 125 (FEB 14) Ca 9.1 (FEB 14) . Radiology results: General Diagnostic Result Type: Chest 1 Vw Portable Result Date: February 14, 2022 12:09 PST Reason For Exam: Shortness of Breath REPORT:? INDICATION: Shortness of BreathCOMPARIS ON: None. FINDINGS: The lungs are well expanded and clear, and the cardiac silhouette and pulmonary vessels appear normal. There is no pulmonary vascular redistribution, pleural effusion, or pneumothorax seen. Signed by: Sean Beverly MD on 02/14/2022 12:11 PM . Impression and Plan Diagnosis: Active Diagnoses ?Influenza A (Influenza due to other identified influenza virus with other respiratory manifestations) ?Acute hypoxemic respira tory failure (Acute respiratory failure with hypoxia) . Acute hypoxic respiratory failure Influenza A tracheobronchitis DM2 Renal insufficiency acute on chronic Hypertension Hyperlipidemia Thrombocytopenia OSAS Obesity GERD Plan: Panculture Tamiflu IV Rocephin/Zithromax Bronchodilators/ICS/O2 supplementation Continue home medications Respiratory isolation Accu-Cheks/SSI Nocturnal CPAP use compliant DVT/PUD prophylaxis Condition prognosis guarded Electronically signed by: MD Ortiz Vijay Signed on: 15-Feb-2022 18:26 PST Consultation 02/15/2022 [facility] Patient: ROGER FREDERICK FIN: [id number] [place] Age: 76 years Legal Sex: Male : 1945 Author: MD Ortiz Vijay Basic Information Provider information/ cc: Physicians Involved With Care Admitting: MD Main Atefeh Attending: MD Main Atefeh Consulting: MD Ortiz Vijay Primary Care: MD RAYNE . Acute hypoxic respiratory fa ilure/influenza A tracheobronchitis/asthma exacerbation Chief Complaint Increasing cough congestion fever shortness of b reath History of Present Illness The patient is a 36-year-old male with possible history of asthma/OSAS/DM2/hypertension hyperlipidemia obesity admitted with increasing cough shortness of breath chest congestion for last 4 to 5 days an d now with fevers and body a ches. He is [facility]. Laboratory work-up in the ER with white count of 8 platelets 1 38,000 CRP 12.6 sodium 134 creatinine 1.5 ALT 53 AST 79 lactate 2.17 patient was h ypoxic requiring O2 2 L foll ow-up ABG with a pH of 7.44 PCO2 to 33 PO2 71 bicarb 22 O2 saturation 95%. Patient is influenza A positive COVID-negative chest x-ray no acute infiltrates. Patient is hospitalized. Review of Systems Constitutional: Fever, Fatigue. Eye: Negative. Ear/Nose/Mouth/Throat: Negative. Respiratory: Shortness of breath, Cough, Wheezin g, Apnea. Cardiovascular: Negative. Gastrointestinal: Negative. Genitourinary: Negative. Hematology/Lymphatics: Negative. Endocrine: Negative. Immunologic: Negative. Musculoskeletal: Joint pain. Integumentary: Negative. Neurologic: Alert and oriented X4. Psychiatric: Anxiety. ROS reviewed as documented in chart Health Status Allergies: Allergic Reactions (All) No Known Medication Allergies Current medications: Home Medications (12) Active A/Fish Oil 04919 u oral capsule (Documented 08/01) acetaminophen 650 mg rectal suppository 650 mg = 1 Supp, PRN, RECTAL, Q4H (Documented 02/14/22) acetaminophen 650 mg rectal suppository 650 mg = 1 Supp, PRN, RECTAL, Q4H (Documented 02/14/22) albuterol 2.5 mg, INH, [id number] (Documented 02/14/22) Aspir 81 oral enteric coated tablet 81 mg = 1 Tab, ORAL, DAILY (Documented 02/14/22) atorvastatin 10 mg oral tabl et 10 mg = 1 Tab, ORAL, DAILY (Documented 02/14/22) chlorthalidone 25 mg oral ta blet 25 mg = 1 Tab, ORAL, DAILY (Documented 02/14/22) fenofibrate 145 mg oral tabl et 145 mg = 1 Tab, ORAL, DAILY (Documented 02/14/22) fluticasone 50 mcg/inh inhal ation powder 1 Puff, INH, BID (Documented 02/14/22) NovoLOG FlexPen (Documented 02/14/22) omeprazole 40 mg oral delaye d release capsule 40 mg = 1 Cap, ORAL, DAILY (Documented 02/14/22) Semglee (Documented 02/14/22) , (Selected) Inpatient Medications Ordered Atrovent: 0.5 mg, INH, Q2H, PRN, Wheezing, NEB A MP, 02/14/22 12:54:00 PST Benadryl: 25 mg, IV PUSH, Q6H, PRN, Itching, INJ , 02/14/22 12:54:00 PST Benadryl: 25 mg, IV PUSH, QBedtime, PRN, Insomni a, INJ, 02/14/22 12:54:00 PST Dextrose 50% Inj 50 mL: = 25 mL, IV PUSH, As directed, PRN, Blood Glucose, INJ, 02/14/22 12:54:00 PST Dextrose 50% Inj 50 mL: = 50 mL, IV PUSH, As directed, PRN, Blood Glucose, INJ, 02/14/22 12:54:00 PST Dulcolax Laxative: 10 mg, RE CTAL, DAILY, PRN, Constipation, SUPP, 02/14/22 12:54:00 PST K-Phos Neutral: = 1 Tab, ORA L, As directed, PRN, Phosphorus Replacement, TAB, 02/14/22 12:52:00 PST Lovenox: 40 mg, SUBQ, DAILY, Indication = VTE Prophylaxis, INJ, 02/14/22 18:00:00 PST Protonix: 40 mg, ORAL, DAILY, EC TAB, 02/14/22 1 2:54:00 PST SOLU-Medrol: 40 mg, IV PUSH, Q6H, INJ, 02/14/22 18:00:00 PST Tamiflu: 75 mg, ORAL, BID, ORAL SUSP, 02/14/22 2 1:00:00 PST Tylenol: 650 mg, ORAL, Q6H, PRN, Other (see comment), TAB, 02/14/22 12:54:00 PST Tylenol: 650 mg, RECTAL, Q6H , PRN, Other (see comment), SUPP, 02/14/22 12:54:00 PST Zofran: 4 mg, IV PUSH, Q4H, PRN, Nausea/Vomiting , INJ, 02/14/22 12:54:00 PST albuterol-ipratopium 3-0.5 m g/3 mL inh soln (DuoNeb): = 3 mL, INH, QID, NEB AMP, 02/14/22 17:00:00 PST albuterol: 1.25 mg, INH, Q2H, PRN, Wheezing, NEB AMP, 02/14/22 12:54:00 PST aspirin: 81 mg, ORAL, DAILY, EC TAB, 02/14/22 12 :52:00 PST atorvastatin: 10 mg, ORAL, QBedtime, TAB, 21:00:00 PST chlorthalidone 25 mg oral ta blet: chlorthalidone 25 mg oral tablet, = 0.5 Tab, ORAL, DAILY, 02/14/22 12:52:00 PST cloNIDine: 0.1 mg, ORAL, Q6H , PRN, Other (see comment), TAB, 02/14/22 12:54:00 PST docusate-senna 50 mg-8.6 mg oral tablet: = 1 Tab, ORAL, BID, TAB, 02/14/22 21:00:00 PST fenofibrate: 145 mg, ORAL, DAILY, TAB, 02/14/22 12:52:00 PST fluticasone 100 mcg inhalati on powder: = 1 Puff, INH, DAILY, POWDER, 02/14/22 12:52:00 PST glucagon: 1 mg, SUBQ, As dir ected, PRN, Blood Glucose, INJ, 02/14/22 12:54:00 PST magnesium oxide: 400 mg, ORA L, BID, PRN, Magnesium Replacement, TAB, 02/14/22 12:51:00 PST magnesium sulfate 2 g in SWF I 50 mL: 2 gm = 50 mL, IVPB, [id number], PRN, Magnesium Replacement, IV SOLN, 02/14/22 12:51:00 PST, 50 mL/hr, 60 min potassium bicarbonate-citric acid: 20 mEq, ORAL, As directed, PRN, Potassium Replacement, EFFER TAB, 02/14/22 12:51:00 PST potassium bicarbonate-citric acid: 40 mEq, ORAL, As directed, PRN, Potassium Replacement, EFFER TAB, 02/14/22 12:51:00 PST potassium chloride 10 mEq in SWFI 100 mL: 10 mEq = 100 mL, IVPB, As directed, PRN, Potassium Replacement, IV SOLN, 02/14/22 12:51:00 PST, 100 mL/hr, 60 min sodium chloride 0.9% 1,000 m L: 1,000 mL, IV, Routine, 02/14/22 12:54:00 PST, 70 mL/hr, 14.3 hr, Order Weight 108, kg Documented Medications Documented A/Fish Oil 59368 u oral capsule: 0 Refill(s), Ma intenance Aspir 81 oral enteric coated tablet: = 1 Tab, ORAL, DAILY, 0 Refill(s), Maintenance NovoLOG FlexPen: 0 Refill(s), Maintenance Semglee: 70 mg evenings, 0 Refill(s), Maintenanc e acetaminophen 650 mg rectal suppository: = 1 Supp, RECTAL, Q4H, PRN PRN for fever, 0 Refill(s), Maintenance acetaminophen 650 mg rectal suppository: = 1 Supp, RECTAL, Q4H, PRN PRN for pain, 0 Refill(s), Maintenance albuterol: 2.5 mg, INH, [id number], 0 Refill(s ), Maintenance atorvastatin 10 mg oral tablet: = 1 Tab, ORAL, DAILY, 0 Refill(s), Maintenance chlorthalidone 25 mg oral ta blet: = 1 Tab, ORAL, DAILY, 1/2 daily, 0 Refill(s), Maintenance fenofibrate 145 mg oral tablet: = 1 Tab, ORAL, DAILY, 0 Refill(s), Maintenance fluticasone 50 mcg/inh inhal ation powder: 1 Puff, INH, BID, 0 Refill(s), Maintenance omeprazole 40 mg oral delaye d release capsule: 1 Cap, ORAL, DAILY, 0 Refill(s), Maintenance, Active inpatient medications ACTIVE INPT MEDS: albuterol-ipratropium (albut luna-ipratopium 3-0.5 mg/3 mL inh soln (DuoNeb)) 3 mL INH QID aspirin 81 mg ORAL DAILY atorvastatin 10 mg ORAL QBedtime docusate-senna (docusate-senna 50 mg-8.6 mg oral tablet) 1 Tab ORAL BID enoxaparin (Lovenox) 40 mg SUBQ DAILY fenofibrate 145 mg ORAL DAILY fluticasone (fluticasone 100 mcg inhalation powd er) 1 Puff INH DAILY methylPREDNISolone (SOLU-Medrol) 40 mg IV PUSH Q 6H Non-formulary medication (chlorthalidone 25 mg oral tablet) 0.5 Tab ORAL DAILY oseltamivir (Tamiflu) 75 mg ORAL BID pantoprazole (Protonix) 40 mg ORAL DAILY ACTIVE PRN MEDS: acetaminophen (Tylenol) 650 mg RECTAL Q6H acetaminophen (Tylenol) 650 mg ORAL Q6H albuterol 1.25 mg INH Q2H bisacodyl (Dulcolax Laxative) 10 mg RECTAL DAILY cloNIDine 0.1 mg ORAL Q6H diphenhydrAMINE (Benadryl) 25 mg IV PUSH Q6H diphenhydrAMINE (Benadryl) 25 mg IV PUSH QBedtim e glucagon 1 mg SUBQ As directed glucose (Dextrose 50% Inj 50 mL) 25 mL IV PUSH A s directed glucose (Dextrose 50% Inj 50 mL) 50 mL IV PUSH A s directed ipratropium (Atrovent) 0.5 mg INH Q2H magnesium oxide 400 mg ORAL BID magnesium sulfate (magnesium sulfate 2 g in SWFI 50 mL) 2 gm IVPB [id number] ondansetron (Zofran) 4 mg IV PUSH Q4H potassium bicarbonate-citric acid 20 mEq ORAL As directed potassium bicarbonate-citric acid 40 mEq ORAL As directed potassium chloride (potassiu m chloride 10 mEq in SWFI 100 mL) 10 mEq IVPB As directed potassium phosphate-sodium phosphate (K-Phos Tara tral) 1 Tab ORAL As directed ONE TIME MEDS: (Completed) acetaminophen 1,000 mg ORAL ONCE (Completed) albuterol 5 mg INH ONCE (Completed) azithromycin 500 mg IV ONCE (Completed) cefTRIAXone (Rocephin) 2 gm IV ONCE (Completed) ipratropium (Atrovent) 0.5 mg INH ON CE (Completed) methylPREDNISolone (SOLU-Medrol) 60 mg IV ONCE ACTIVE IV MEDS: sodium chloride 0.9% 1,000 mL 1,000 mL 70 mL/hr Histories Past Medical History: No active or resolved past m edical history items have been selected or recorded. Family History: No family history items have been selected or re corded. Procedure history: No active procedure history items have been ruben cted or recorded. Social History Social and Psychosocial Habits *Alcohol Screen 02/14/2022 *How often do you have a drink contai johanny alcohol? Never (0) *How many standard drinks containing alcohol do you have on Never (0) *How often do you have six or more drinks on on e occasion? Never (0) *Ready to change? N/A *Home/Environment Screen 02/14/2022 *Living situation: Home/Independent Home type: Single family house Lives with: Significant other *Tobacco Use Screen 02/14/2022 Is there a smoker in the household? N o *Do you have concerns about tobacco use in hous ehold? No *Over the past 30 days, wha t and how much have you smoked? 4 or less cigarettes(less *Over the past 30 days, what has been your smok eless tobacco Never *Are you ready to quit? N/A *Substance Abuse Screen 02/14/2022 *Do you have concerns about substance abuse for yourself or No *Nutrition Screen 02/14/2022 *1. Decreased appetite Yes (1) *2. Recent unintended weight loss None (0) *3. If unable to answer, does pt look frail/und erwt? No (0) *Nutritional Risks: No nutritional risk dusty, pt is diabetic Type of diet: Diabetic diet *Spiritual/Cultural Screen 02/14/2022 *Spiritual support is available to yo u; would you like me to No *Is Christianity/Spirituality/Tavia important to yo u as you cope No . Physical Examination VS/Measurements: Inpt. Vital signs (ST) Vital Signs (last 24 hrs)___ __ Last Charted Minimum Maximum Temp(?F) 98.8 (FEB 14 17:37 PST) 98.8 (FEB 14 17:37 PST) H 101.6 (FEB 14 11:21 PST) Heart Rate 89 (FEB 14 17:37 PST) 88 (FEB 14 14:55 PST) H 100 (FEB 14 14:00 PST) Resp Rate 20 (FEB 14 17:40 PST) 15 (FEB 14 14:55 PST) H 27 (FEB 14 16:00 PST) SBP 126 (FEB 14 17:37 PST) 126 (FEB 14 17:37 PST ) H 155 (FEB 14 11:21 PST) DBP 67 (FEB 14 17:37 PST) L 58 (FEB 14 13:54 PST ) 73 (FEB 14 16:00 PST) SpO2 97 (FEB 14 17:40 PST) 90 (FEB 14 11:21 PST) 99 (FEB 14 13:21 PST) OXYFIO2 28 (FEB 14 13:21 PST) 28 (FEB 14 13:[address]) 28 (FEB 14 13:07 PST) OXYFLOW 2 (FEB 14 17:40 PST) 2 (FEB 14 11:23 PST ) 2 (FEB 14 11:23 PST) OXYDELIVERY Nasal cannula Room a Room a (FEB 14 17:40 PST) (FEB 14 11:21 PST) (FEB 14 1 1:21 PST) . General: Alert and oriented, Mild distress. Eye: Extraocular movements are intact, Normal co njunctiva. HENT: Normocephalic. Neck: Supple, Non-tender, No carotid bruit, No j ugular venous distention. Respiratory: Respirations: Tachypneic. Breath sounds: Bilateral, Rhonchi present, Prol onged expiratory phase. Cardiovascular: Regular rhythm, S1, S2. Gastrointestinal: Soft, Non-tender, Non-distende d, Normal bowel sounds. Genitourinary: No costovertebral angle tendernes s. Musculoskeletal: Normal range of motion. Integumentary: Warm. Neurologic: Alert. Cognition and Speech: Oriented. Psychiatric: Cooperative. Review / Management Results review: Labs (Last four charted values) WBC 8.4 (FEB 14) Hgb 12.6 (FEB 14) Hct 37.7 (FEB 14) Plt L 138 (FEB 14) Na L 134 (FEB 14) K 3.6 (FEB 14) CO2 25 (FEB 14) Cl L 100 (FEB 14) Cr H 1.52 (FEB 14) BUN 19 (FEB 14) Glucose Random 125 (FEB 14) Ca 9.1 (FEB 14) . Radiology results: General Diagnostic Result Type: Chest 1 Vw Portable Result Date: February 14, 2022 12:09 PST Reason For Exam: Shortness of Breath REPORT: INDICATION: Shortness of BreathCOMPARISO N: None. FINDINGS: The lungs are well expanded and clear, and the cardiac silhouette and pulmonary vessels appear normal. There is no pulmonary vascular redistribution, pleural effusion, or pneumothorax seen. Signed by: Sean Beverly MD on 02/14/2022 12:11 PM . Impression and Plan Diagnosis: Active Diagnoses Influenza A (Influenza due to other identified influenza virus with other respiratory manifestations) Acute hypoxemic respiratory failure (Acute resp iratory failure with hypoxia) . Acute hypoxic respiratory failure Influenza A tracheobronchitis DM2 Renal insufficiency acute on chronic Hypertension Hyperlipidemia Thrombocytopenia OSAS Obesity GERD Plan: Panculture Tamiflu IV Rocephin/Zithromax Bronchodilators/ICS/O2 supplementation Continue home medications Respiratory isolation Accu-Cheks/SSI Nocturnal CPAP use compliant DVT/PUD prophylaxis Condition prognosis guarded [id number] Male History and Physical 02/14/2022 [facility] [place] Patient: ROGER FREDERICK ? 41? Age: 76 years?Legal Sex: MALE?: [id number] Date of Service 02/14/2022 13:21 PST Chief Complaint Shortness of breath. History of Present Illness 76-year-old male with past medical history significant for hypertension, hyperlipidemia, type 2 diabetes mellitus, asthma, obstructive sleep apnea, gastroesophageal reflux disease presents [facility] [place] [facility] complaint shortness of breath.? Patient details that over the past 3 to 4 days he has been having progressive congestion, dry cough, mild shortness of breath.& #[id number]; Patient details body a ches.? Patient also recently developed fevers.? Patient details that his recently had an upper respiratory infection 4 days prior.? Patient is visiting [facility].? Denies any chest pain.? No abdomi nal pain or tenderness. Review of Systems Constitutional:?Fever. ?Weakness.? Generalized body aches. Eye: ?No recent visual prob opal, No icterus, No discharge, No blurring, No double vision. Ear/Nose/Mouth/Throat:?Nasa l congestion. ?No decreased hearing, No ear pain, No sore throat. ? Respiratory: Shortness of breath. ?Coug h.? No sputum production, No wheezing. Cardiovascular: ?No chest p ain, No palpitations, No bradycardia, No tachycardia, No peripheral edema.? Gastrointestinal: ?No nause a, No vomiting, No diarrhea, No constipation, No abdominal pain. Genitourinary: ?No dysuria, No hematuria, No ch alfonso in urine stream. Hematology/Lymphatics: ?No bruising tendency, N o bleeding tendency. Endocrine: ?No excessive th irst, No polyuria, No cold intolerance, No heat intolerance. Immunologic: ?Not immunocompromised, No recurre nt fevers. Musculoskeletal: ?No back p ain, No neck pain, No joint pain, No muscle pain, No decreased range of motion, No trauma. ? Integumentary: ?No rash, No pruritus, No abrasi ons, No breakdown.?? Neurologic: ?Alert and orie nted X4, No abnormal balance, No confusion, No numbness, No tingling, No headache. ? Psychiatric: ?No anxiety, N o depression, No yessica, Not suicidal, Not delusional, No hallucinations. ? ? Review of systems completed. Physical Exam Vitals and Measurements T: 101.3 F HR: 98 RR: 20 BP: 155/65 SpO2: 99% O2 Delivery: Room air O2 Flow: 2L/min FiO2: 28% WT:?108 kg(Dose Calc Wt.)?WT:?108 kg ?Shock Index: ?0.606 02/14/22 13:21 ? General: ?Alert and oriented. ?Mild distress. Eye: ?Pupils are equal, rou nd and reactive to light, Extraocular movements are intact, Normal conjunctiva. HENT: ?Normocephalic, Tympa maddy membranes are clear, Good light reflex, Normal hearing, Oral mucosa is moist, No pharyngeal erythema. Neck: ?Supple, Non-tender, No carotid bruit, No jugular venous distention.? Respiratory:?Tachypnea.? Re spirations are non-labored, Breath sounds are equal, Symmetrical chest wall expansion, No chest wall tenderness. ? Cardiovascular: ?Normal rat e, Regular rhythm, Normal peripheral perfusion, No edema, Good pulses equal in all extremities. ? Capillary refill exam: Bila teral: Upper extremity ( Capillary Refill Time (POLYSOMNOGRAPH TECH) returns in less than 2 seconds ), Lower extremity ( Capillary Refill Time (POLYSOMNOGRAPH TECH) returns in less than 2 seconds ). ? Gastrointestinal: ?Soft, No n-tender, Non-distended, Normal bowel sounds, No organomegaly. Genitourinary: ?No costovertebral angle tendern ess. Lymphatics: ?No lymphadenopathy neck, axilla, g roin. ? Musculoskeletal: ?Normal ra nge of motion, Normal strength, No tenderness, No swelling, No deformity, Normal gait. ? Integumentary: ?Warm, [place], Intact, No pallor, No rash. ? Neurologic: ?Alert, Oriente d, Normal sensory, Normal motor function, No focal deficits. ? Psychiatric: ?Cooperative, Appropriate mood and affect, Normal judgment, Non- suicidal. ? Assessment/Plan _ Orders: acetaminophen (Tylenol), 65 0 mg, ORAL, Q6H, PRN, Other (see comment), TAB, 02/14/22 12:54:00 PST acetaminophen (Tylenol), 65 0 mg, RECTAL, Q6H, PRN, Other (see comment), TAB, 02/14/22 12:54:00 PST albuterol (albuterol), 1.25 mg, INH, Q2H, PRN, Wheezing, SOLN, 02/14/22 12:54:00 PST albuterol-ipratropium (albu terol-ipratopium 3-0.5 mg/3 mL inh soln (DuoNeb)), = 3 mL, INH, QID, NEB AMP, 02/14/22 17:00:00 PST aspirin (aspirin), 81 mg, ORAL, DAILY, EC TAB, 02/14/22 12:52:00 PST atorvastatin (atorvastatin), 10 mg, ORAL, DAILY , TAB, 02/14/22 12:52:00 PST bisacodyl (Dulcolax Laxativ e), 10 mg, RECTAL, DAILY, PRN, Constipation, SUPP, 02/14/22 12:54:00 PST cloNIDine (cloNIDine), 0.1 mg, ORAL, Q6H, PRN, Other (see comment), TAB, 02/14/22 12:54:00 PST diphenhydrAMINE (Benadryl), 25 mg, IV PUSH, QBedtime, PRN, Insomnia, INJ, 02/14/22 12:54:00 PST diphenhydrAMINE (Benadryl), 25 mg, IV PUSH, Q6H, PRN, Itching, INJ, 02/14/22 12:54:00 PST docusate-senna (docusate-se nna 50 mg-8.6 mg oral tablet), = 1 Tab, ORAL, BID, TAB, 02/14/22 21:00:00 PST enoxaparin (Lovenox), 40 mg , SUBQ, [id number], Indication = VTE Prophylaxis, INJ, 02/14/22 13:00:00 PST fenofibrate (fenofibrate), 145 mg, ORAL, DAILY, TAB, 02/14/22 12:52:00 PST fluticasone (fluticasone 10 0 mcg inhalation powder), = 1 Puff, INH, DAILY, POWDER, 02/14/22 12:52:00 PST glucagon (glucagon), 1 mg, SUBQ, As directed, PRN, Blood Glucose, INJ, 02/14/22 12:54:00 PST glucose (Dextrose 50% Inj 5 0 mL), = 50 mL, IV PUSH, As directed, PRN, Blood Glucose, INJ, 02/14/22 12:54:00 PST glucose (Dextrose 50% Inj 5 0 mL), = 25 mL, IV PUSH, As directed, PRN, Blood Glucose, INJ, 02/14/22 12:54:00 PST ipratropium (Atrovent), 0.5 mg, INH, Q2H, PRN, Wheezing, NEB AMP, 02/14/22 12:54:00 PST magnesium oxide (magnesium oxide), 400 mg, ORAL, BID, PRN, Magnesium Replacement, TAB, 02/14/22 12:51:00 PST magnesium sulfate (magnesiu m sulfate 2 g in SWFI 50 mL), 2 gm = 50 mL, IVPB, [id number], PRN, Magnesium Replacement, IV SOLN, 02/14/22 12:51:00 PST, 50 mL/hr, 60 min methylPREDNISolone (SOLU-Me drol), 40 mg, IV PUSH, Q6H, INJ, 02/14/22 18:00:00 PST Non-formulary medication (c hlorthalidone 25 mg oral tablet), chlorthalidone 25 mg oral tablet, = 0.5 Tab, ORAL, DAILY, 02/14/22 12:52:00 PST ondansetron (Zofran), 4 mg, IV PUSH, Q4H, PRN, Nausea/Vomiting, INJ, 02/14/22 12:54:00 PST oseltamivir (Tamiflu), 75 mg, ORAL, BID, CAP, 1 04/17/21 21:00:00 PST pantoprazole (Protonix), 40 mg, ORAL, DAILY, EC TAB, 02/14/22 12:54:00 PST potassium bicarbonate-citri c acid (potassium bicarbonate-citric acid), 40 mEq, ORAL, As directed, PRN, Potassium Replacement, EFFER TAB, 02/14/22 12:51:00 PST potassium bicarbonate-citri c acid (potassium bicarbonate-citric acid), 20 mEq, ORAL, As directed, PRN, Potassium Replacement, EFFER TAB, 02/14/22 12:51:00 PST potassium chloride (potassi um chloride 10 mEq in SWFI 100 mL), 10 mEq = 100 mL, IVPB, As directed, PRN, Potassium Replacement, IV SOLN, 02/14/22 12:51:00 PST, 100 mL/hr, 60 min potassium phosphate-sodium phosphate (K-Phos Neutral), = 1 Tab, ORAL, As directed, PRN, Phosphorus Replacement, TAB, 02/14/22 12:52:00 PST sodium chloride 0.9% 1,000 mL (sodium chloride 0.9% 1,000 mL), 1,000 mL, IV, Routine, 02/14/22 12:54:00 PST, 70 mL/hr, 14.3 hr, Order Weight 108, kg Bedrest CBC w Differential Chair Communication Communication Communication Comprehensive Metabolic Panel CMP Consistent Carbohydrate Diet - Adult CPAP/NIV Management Daily Fingerstick/Capillary Blood Sugar Fingerstick/Capillary Blood Sugar Full Code Hypoglycemia Protocol Intake and Output Intermittent Pneumatic Compression Device Magnesium Level Notify Physician Notify Physician Notify Physician Nursing Communication Electrolyte Replacement Nursing Communication Phosphate Replacement Oxygen Therapy Phosphorus Level Physician Consult Precautions Rapid Response Protocol Orders or Emergency Res ponse per Protocol Vital Signs Weigh Patient ? #Acute hypoxemic respiratory failure #Influenza A Admit telemetry Tamiflu 75 mg twice daily DuoNeb breathing treatments Systemic corticosteroids Maintain adequate oxygenation, O2 as needed Pulmonology consult ? #Hypertension Continue chlorthalidone 25 mg half tab daily Maintain BP control, as needed medication avail able ? #Hyperlipidemia Continue fenofibrate 145 mg daily ? #Type 2 diabetes mellitus Fingerstick blood glucose Insulin per sliding scale Consistent carbohydrate diet ? #Gastroesophageal reflux disease Continue Protonix 40 mg daily ? #Asthma Continue fluticasone 50 mcg inhalation 1 puff t wice daily Maintain adequate oxygenation, O2 as needed ? #Obstructive sleep apnea Continue CPAP at night ? PUD/VTE prophylaxis, Protonix, Lovenox ? Prognosis: GUARDED and will depend to patient ?s response to treatment? Continue plan of care per a ttending physician Dr. Main, consulting physician. Two-Midnight Documentation I believe an inpatient admis randall is medically necessary, as I expect the patient to require acute care services that will require 2 or more midnights. My assessment has taken into consideration this pat ient's history, comorbiditie s, the severity of current signs and symptoms, current medical needs, and the risk of an adverse event. Allergies No Known Medication Allergies Problem List ? Past medical history signi ficant for hypertension, hyperlipidemia, type 2 diabetes mellitus, asthma, obstructive sleep apnea, gastroesophageal reflux disease. Procedure/Surgical History Past surgical history signif icant for bilateral knee arthroplasty. ?Inguinal hernia repair. Medications Inpatient albuterol, 1.25 mg, INH, Q2H, PRN albuterol-ipratopium 3-0.5 mg/3 mL inh soln (Du oNeb), 3 mL, INH, QID aspirin, 81 mg, 1 Tab, ORAL, DAILY atorvastatin, 10 mg, 1 Tab, ORAL, DAILY Atrovent, 0.5 mg, 2.5 mL, INH, Q2H, PRN Benadryl, 25 mg, 0.5 mL, IV PUSH, Q6H, PRN Benadryl, 25 mg, 0.5 mL, IV PUSH, QBedtime, PRN chlorthalidone 25 mg oral tablet, 0.5 Tab, ORAL , DAILY cloNIDine, 0.1 mg, 1 Tab, ORAL, Q6H, PRN Dextrose 50% Inj 50 mL, 25 mL, IV PUSH, As dire cted, PRN Dextrose 50% Inj 50 mL, 50 mL, IV PUSH, As dire cted, PRN docusate-senna 50 mg-8.6 mg oral tablet, 1 Tab, ORAL, BID Dulcolax Laxative, 10 mg, 1 Supp, RECTAL, DAILY , PRN fenofibrate, 145 mg, 1 Tab, ORAL, DAILY fluticasone 100 mcg inhalation powder, 1 Puff, INH, DAILY glucagon, 1 mg, SUBQ, As directed, PRN K-Phos Neutral, 1 Tab, ORAL, As directed, PRN Lovenox, 40 mg, 0.4 mL, SUBQ, [id number] magnesium oxide, 400 mg, 1 Tab, ORAL, BID, PRN magnesium sulfate 2 g in SWFI 50 mL, 2 gm, 50 m L, IVPB, [id number], PRN potassium bicarbonate-citric acid, 20 mEq, 1 Ta b, ORAL, As directed, PRN potassium bicarbonate-citric acid, 40 mEq, 2 Ta b, ORAL, As directed, PRN potassium chloride 10 mEq i n SWFI 100 mL, 10 mEq, 100 mL, IVPB, As directed, PRN Protonix, 40 mg, 1 Tab, ORAL, DAILY sodium chloride 0.9% 1,000 mL, 1000 mL, IV sodium chloride 0.9% 2,000 mL, 2000 mL, IV SOLU-Medrol, 40 mg, 1 mL, IV PUSH, Q6H Tamiflu, 75 mg, 1 Cap, ORAL, BID Tylenol, 650 mg, 2 ea, RECTAL, Q6H, PRN Tylenol, 650 mg, 2 ea, ORAL, Q6H, PRN Zofran, 4 mg, 2 mL, IV PUSH, Q4H, PRN Home A/Fish Oil 83792 u oral capsule acetaminophen 650 mg rectal suppository, 650 mg , 1 Supp, RECTAL, Q4H, PRN acetaminophen 650 mg rectal suppository, 650 mg , 1 Supp, RECTAL, Q4H, PRN albuterol, 2.5 mg, INH, [id number] Aspir 81 oral enteric coated tablet, 81 mg, 1 T ab, ORAL, DAILY atorvastatin 10 mg oral tablet, 10 mg, 1 Tab, O RAL, DAILY chlorthalidone 25 mg oral tablet, 25 mg, 1 Tab, ORAL, DAILY fenofibrate 145 mg oral tablet, 145 mg, 1 Tab, ORAL, DAILY fluticasone 50 mcg/inh inhalation powder, 1 Puf f, INH, BID NovoLOG FlexPen omeprazole 40 mg oral delayed release capsule, 40 mg, 1 Cap, ORAL, DAILY Semglee Lab Results ? Hematology - CBC ? ? WBC 8.4?K/uL 02/14/22 11:44 PST RBC 4.24?M/uL 02/14/22 11:44 PST HGB 12.6?gm/dL 02/14/22 11:44 PST HCT 37.7?% 02/14/22 11:44 PST MCV 88.9?fL 02/14/22 11:44 PST MCH 29.7?pg 02/14/22 11:44 PST MCHC 33.3?gm/dL 02/14/22 11:44 PST RDW 15.3?% 02/14/22 11:44 PST PLT L 138?K/uL 02/14/22 11:44 PST MPV 8.60?fL 02/14/22 11:44 PST Chemistry ? ? CRP C-Reactive Protein H 12.60?mg/dL 02/14/22 11:45 PST Sodium Level L 134?mmol/L 02/14/22 11:44 PST Potassium Level 3.6?mmol/L 02/14/22 11:44 PST Chloride Level L 100?mmol/L 02/14/22 11:44 PST CO2/Carbon Dioxide 25?mmol/L 02/14/22 11:44 PST Anion Gap 9.0? 02/14/22 11:44 PST Glucose, Random 125?mg/dL 02/14/22 11:44 PST BUN 19?mg/dL 02/14/22 11:44 PST Creatinine H 1.52?mg/dL 02/14/22 11:44 PST BUN/Creat Ratio 12.5? 02/14/22 11:44 PST Osmolality, Calculated 272?mOsm/L 02/14/22 11:44 PST Calcium Level 9.1?mg/dL 02/14/22 11:44 PST Total Protein 7.2?gm/dL 02/14/22 11:44 PST Albumin Level 4.1?gm/dL 02/14/22 11:44 PST Globulin Level 3.1?gm/dL 02/14/22 11:44 PST A/G Ratio 1.3? 02/14/22 11:44 PST ALP 45?IntUnit/L 02/14/22 11:44 PST ALT H 53?IntUnit/L 02/14/22 11:44 PST AST H 79?IntUnit/L 02/14/22 11:44 PST Bilirubin, Total 0.8?mg/dL 02/14/22 11:44 PST GFR - Non L 48?mL/min/1.73m2 02/14/22 11:44 PST GFR - L 58?mL/min/1.73m2 02/14/22 11:44 PST Lactic Acid WB H 2.17?mmol/L 02/14/22 11:44 PST FIO2 28?% 02/14/22 11:56 PST BG - O2 Device NC? 02/14/22 11:56 PST BG - Oxygen Flow 2.0?L/min 02/14/22 11:56 PST BG - Patient Rate 22?br/min 02/14/22 11:56 PST BG - Pulse Oximetry 94?% 02/14/22 11:56 PST ABG - pH 7.441? 02/14/22 11:56 PST ABG - pO2 L 71?mmHg 02/14/22 11:56 PST ABG - pCO2 L 33?mmHg 02/14/22 11:56 PST ABG - HCO3 22.4?mEq/L 02/14/22 11:56 PST ABG - TCO2 23?mEq/L 02/14/22 11:56 PST ABG - BE -2.0?mEq/L 02/14/22 11:56 PST ABG - O2 Sat 95.0?% 02/14/22 11:56 PST BG - Modified Juan Test PASS? 02/14/22 11:56 PST BG - Site RRAD? 02/14/22 11:56 PST Procalcitonin Level 0.47?ng/mL 02/14/22 11:45 PST Troponin I 0.03?ng/mL 02/14/22 11:44 PST Coagulation ? ? D-Dimer, Qnt 0.45?mcg/mL FEU 02/14/22 11:45 PST Immunology ? ? Respiratory Syncytial Virus Molecular Not Detected? 02/14/22 11:36 PST SARS-CoV-2 Source Nasopharyngeal? 02/14/22 11:36 PST Influenza A Agn Molecular C Detected? 02/14/22 11:36 PST Influenza B Agn Molecular Not Detected? 02/14/22 11:36 PST SARS-CoV-2 Molecular Not Detected? 02/14/22 11:36 PST SARS-CoV-2 First test? No? 02/14/22 11:36 PST Health Care Worker? No? 02/14/22 11:36 PST SARS-CoV-2 Is the Patient Hospitalized? No? 02/14/22 11:36 PST SARS-CoV-2 Is the Patient in ICU? No? 02/14/22 11:36 PST Patient From Congregate Area? No? 02/14/22 11:36 PST Symptomatic per CDC? Yes? 02/14/22 11:36 PST SARS-CoV-2 Is the Patient ? No? 02/14/22 11:36 PST Social History ???Abuse/Intent to Harm ?Abuse screen, adult/elderly/domestic: No signs of abuse ?Are you thinking of harming or killing an yone else?: No ?CSSRS Risk Level: No risk (0-24) ?CSSRS Suicide screening: Screening alread y completed this visit ?CSSRS Suicide screening ED: Complete the suicide screening ? Patient denies any tobacco, alcohol, substance use. Family History Patient details there is a s drake history of hypertension in the family?involving multiple family members.? Congestive heart failure in mother. ?Alzheimer's dementia in father. Diagnostics Results Chest 1 Vw Portable ? 02/14/22 12:11:07 INDICATION: Shortness of Breath ? COMPARISON: None. ? FINDINGS: The lungs are wel l expanded and clear, and the cardiac silhouette and pulmonary vessels appear normal. There is no pulmonary vascular redistribution, pleural effusion, or pneumothorax seen. ? Signed by: Sean Beverly MD on 02/14/2022 12:11 PM Electronically signed by: LOUIS Guerra Arme n Signed on: 14-Feb-2022 13:56 PST Portable XR Chest AP INDICATION: Shortness of Breath 02/14/2022 60 [facility] single view COMPARISON: None. [place] FINDINGS: The lungs are well expanded and clear, and the cardiac silhouette and pulmonary vessels appear normal. There is no pulmonary vascular redistribution, pleural effusion, or pneumothorax seen. Signed by: Sean Beverly MD on 02/14/2022 12:11 PM Final Physician Notes 02/14/2022 [facility] Patient: ROGER FREDERICK FIN: [id number] [place] Age: 76 years Legal Sex: Male : 1945 Author: MD Denise, Oren Ny Basic Information [employer]/MARIO Time Patient Seen face to face: Date and time 02/14/2022 11:28:55 . History source: Patient, significant other. Arrival mode: Private vehicle. History limitation: None. Additional information: Jessi f Complaint from Nursing Triage Note : Reason for visit history 02/14/2022 11:21 PST BIBA c/ c SOB, nausea, cough, and congestion x 3 days. Pt here on vacation, recent stomach flu. 4mg Zofran given in route. Pt 90% RA, placed on 2L NC. Hx: HTN, DM2, asthma. . History of Present Illness The patient presents with Mario ching visiting from [place]. His been ill for the last 4 days, with progressive chest congestion, prominent dry cough and now fever. Patient's had an upper re spiratory infection 4 days a go and he has not been symptomatic. He has complained of progressive cough, and today has become increasingly weak to the point where he can hardly sit up much less stand. He is complaining of some shor tness of breath as well. Minimal sputum production. No vomiting or diarrhea at this time. Past history significant for insulin-dependent type 2 diabetes, hypertension, asthma.. Review of Systems Additional review of system s information: All other systems reviewed and otherwise negative. Health Status Allergies: Allergic Reactions (Selected) No Known Medication Allergies. Medications: (Selected) Documented Medications Documented A/Fish Oil 22561 u oral capsule: 0 Refill(s), Ma intenance Aspir 81 oral enteric coated tablet: = 1 Tab, ORAL, DAILY, 0 Refill(s), Maintenance NovoLOG FlexPen: 0 Refill(s), Maintenance Semglee: 70 mg evenings, 0 Refill(s), Maintenanc e acetaminophen 650 mg rectal suppository: = 1 Supp, RECTAL, Q4H, PRN PRN for fever, 0 Refill(s), Maintenance acetaminophen 650 mg rectal suppository: = 1 Supp, RECTAL, Q4H, PRN PRN for pain, 0 Refill(s), Maintenance albuterol: 2.5 mg, INH, [id number], 0 Refill(s ), Maintenance atorvastatin 10 mg oral tablet: = 1 Tab, ORAL, DAILY, 0 Refill(s), Maintenance chlorthalidone 25 mg oral ta blet: = 1 Tab, ORAL, DAILY, 1/2 daily, 0 Refill(s), Maintenance fenofibrate 145 mg oral tablet: = 1 Tab, ORAL, DAILY, 0 Refill(s), Maintenance fluticasone 50 mcg/inh inhal ation powder: 1 Puff, INH, BID, 0 Refill(s), Maintenance omeprazole 40 mg oral delaye d release capsule: 1 Cap, ORAL, DAILY, 0 Refill(s), Maintenance, per nurse's notes. Past Medical/ Family/ Social History Surgical history: No active procedure history items have been selected or recorded., Reviewed as documented in chart. Family history: Not significant. Social history: No results for documentation , Does not smoke, abuse drugs or alcohol. Physical Examination Vital Signs Vital Signs 02/14/2022 11:21 PST Temperature (F) 101.6 DegF HI Peripheral Pulse Rate 94 bpm Normal Respiratory rate 22 br/min HI Systolic BP 155 mmHg HI Diastolic BP 65 mmHg Normal Pulse Oximetry 90 % Oxygen delivery Room air Temp site Oral BP location Right arm Peripheral pulse site Pulse oximetry device . Include ht/wt from flowsheet : Measurements 02/14/2022 11:21 PST Weight (kg) 108 kg Dose calculation weight (kg) 108 kg . General: Awake, alert patien t in mild to moderate distress. He appears quite short of breath. Skin is moderately hot.. No evidence of trauma. PERRLA, EOMI, conjunctiva normal. No facial swelling or luciano a. Neck supple. No adenopath y or meningismus. No thyromegaly. Chest: No chest wall pain to palpation. Tachypneic respiratory pattern. Diminished breath sounds right base, with rales in both bases. Bilat eral expiratory wheezes. Car diac: Regular rate and rhythm without gallop or murmur. Abdomen is without distention. No tenderness to palpation. No rebound or guarding. No organomegaly. No CVA tenderness. Extremities without periphe ral edema. No evidence of any injuries to extremities. Neurologic examination appears to be normal. Cranial nerves intact. Moves all extremities equally. Mental status is awake and alert. Oriented and lucid.. Medical Decision Making Differential Diagnosis: Pneu monia, bronchitis, congestive heart failure, chronic obstructive pulmonary disease, asthma, influenza, COVID. Documents reviewed: None available. Orders Launch Order Profile (Selected) Inpatient Orders InProcess (Procedure Completed) ECG 12 Lead - CV (ED): 02/14/22 12:15:00 PST, St at, NOW Ordered Admission Status: 02/14/22 12:50:00 PST, Inpatie nt, Level Of Care: Tele Atrovent: 0.5 mg, INH, Q2H, PRN, Wheezing, NEB A MP, 02/14/22 12:54:00 PST BMAT Assessment: 02/14/22 17:48:15 PST, BID8 Bedrest: 02/14/22 12:54:00 PST, Continuous Order , Until Stable Benadryl: 25 mg, IV PUSH, Q6H, PRN, Itching, INJ , 02/14/22 12:54:00 PST Benadryl: 25 mg, IV PUSH, QBedtime, PRN, Insomni a, INJ, 02/14/22 12:54:00 PST CBC w Differential: 02/14/22 12:54:00 PST, QMorning, Maria Elena Priority: Routine Rpt Priority: Routine, Not Collected Lab Collect, Blood CMP Comprehensive Metabolic Panel: 02/14/22 12:54:00 PST, QMorning, Maria Elena Priority: Routine Rpt Priority: Routine, Not Collected Lab Collect, Blood CPAP/NIV Management Daily: 1 04/17/21 13:18:00 PST, DAILY, cpap at bedtime, sleep apnea Chair: 02/14/22 12:54:00 PST, TIDMEALS Consistent Carbohydrate Diet - Adult: 02/14/22 12:54:00 PST, Start Meal: Send Tray Now, Standard Carb(50-70 gm/meal) Daily COVID-19 Symptom Reassessment: 02/15/22 9: 00:00 PST, DAILY Dextrose 50% Inj 50 mL: = 25 mL, IV PUSH, As directed, PRN, Blood Glucose, INJ, 02/14/22 12:54:00 PST Dextrose 50% Inj 50 mL: = 50 mL, IV PUSH, As directed, PRN, Blood Glucose, INJ, 02/14/22 12:54:00 PST Dulcolax Laxative: 10 mg, RE CTAL, DAILY, PRN, Constipation, SUPP, 02/14/22 12:54:00 PST ED Possible Admit: 02/14/22 11:45:00 PST Fingerstick/Capillary Blood Sugar: 02/14/22 12:5 4:00 PST, AC&Bed Fingerstick/Capillary Blood Sugar: 02/14/22 12:54:00 PST, PRN Order, Per Hypoglycemia Protocol Full Code: 02/14/22 12:54:00 PST, Continuous Order, Not Yet Discussed with Patient HHN Treatment: 02/14/22 15:14:00 PST, Bernarda godoy, QID7, 3 mL Albuterol - Ipratrop Hypoglycemia Protocol: 02/14/22 12:54:00 PST, Pe day Reference Text Immunization Quality Measure s: 02/14/22 13:03:45 PST, Stop Dt/Tm 02/14/22 13:03:45 PST Infection Control Prevention ist Consult: 02/14/22 17:58:35 PST, Reason for consult: Discern alert Intake and Output: 02/14/22 12:54:00 PST, Q12H-I nterval, Strict K-Phos Neutral: = 1 Tab, ORA L, As directed, PRN, Phosphorus Replacement, TAB, 02/14/22 12:52:00 PST Lovenox: 40 mg, SUBQ, DAILY, Indication = VTE Prophylaxis, INJ, 02/14/22 18:00:00 PST Low Fall Risk: Standard Precautions: 02/14/22 17 :48:15 PST, BID Magnesium Level: 02/14/22 12 :54:00 PST, QMorning, Maria Elena Priority: Routine Rpt Priority: Routine, Not Collected Lab Collect, Blood Notify Physician: 02/14/22 11:32:00 PST, See Ord er Comments Notify Physician: 02/14/22 1 2:51:00 PST, If magnesium level is less than 1 mg/dL Notify Physician: 02/14/22 1 2:51:00 PST, If potassium level less than 2.1 mEq/L or greater than 5.9 mEq/L Notify Physician: 02/14/22 1 2:52:00 PST, Phosphorus level equal or less than 1.5mg/dL or greater than 5mg/dL Nursing Communication Electr olyte Replacement: 02/14/22 12:51:00 PST, BID, Review Electrolyte Replacement orders and magnesium and potassium levels. Nursing Communication Phosph ate Replacement: 02/14/22 12:52:00 PST, DAILY, Review phosphate replacement orders and review Sodium, Potassium, Creatinine and Phosphate levels. Nursing Communication: 02/14 12:51:00 PST, Potassium Replacement Nursing Communication: If patient is on dialysis call provider for custom dosing instructions for electrolyte replacement. Nursing Communication: 02/14 12:51:00 PST, Potassium Replacement Nursing Communication: Telemetry monitoring is required for potassium chloride infusion rates greater than 10 mEq/hour Nursing Communication: 02/14 12:52:00 PST, Phosphate Replacement Nursing Communication: If patient is on TPN, PPN or dialysis, please call provider for custom dosing instructions. For patients weight less than 50 Kg, contact the provider for custo m dosing instructions. Obtain a Copy of Advance Dir ective: 02/14/22 17:55:53 PST, ONCE, Stop Dt/Tm 02/14/22 17:55:53 PST Obtain code/implementation o rder: 02/14/22 17:55:53 PST, ONCE, Stop Dt/Tm 02/14/22 17:55:53 PST Oxygen Therapy: 02/14/22 12: 54:00 PST, Routine, Continuous Order, 2 Liters per Nasal Cannula, Start oxygen via nasal cannula at 2 L/min. Titrate by 1 L/min. increments, each 5 minutes, to keep O2 Sat gr eater than or equal to 92%. Maximum limit = 6 L/ min. Call phys... POC Lactic Acid (ED): 11:32:00 PST, Blood, ONCE, Stop Dt/Tm 02/14/22 11:32:00 PST Phosphorus Level: 02/14/22 1 2:54:00 PST, QMorning, Maria Elena Priority: Routine Rpt Priority: Routine, Not Collected Lab Collect, Blood Physician Consult: 02/14/22 13:17:00 PST, MD Angel, jerad Decker, Unit Staff To Call? No Precautions: 02/14/22 12:54:00 PST, Continuous O rder, Fall Precautions Protonix: 40 mg, ORAL, DAILY, EC TAB, 02/14/22 1 2:54:00 PST Rapid Response Protocol Orde rs or Emergency Response per Protocol: 02/14/22 12:54:00 PST, Per protocol SCD: 02/14/22 12:54:00 PST, [id number], While In Bed; Remove every 8 hours for 30 minutes then reapply. SOLU-Medrol: 40 mg, IV PUSH, Q6H, INJ, 02/14/22 18:00:00 PST Smoking Cessation - RN: 08/01 18:00:36 PST, ONCE, Stop Dt/Tm 02/14/22 18:00:36 PST Tamiflu: 75 mg, ORAL, BID, ORAL SUSP, 02/14/22 2 1:00:00 PST Telemetry Monitorin02/14/22 12:50:00 PST, Con tinuous Order Tylenol: 650 mg, ORAL, Q6H, PRN, Other (see comment), TAB, 02/14/22 12:54:00 PST Tylenol: 650 mg, RECTAL, Q6H , PRN, Other (see comment), SUPP, 02/14/22 12:54:00 PST VTE Quality Measures: 02/14/22 12:55:44 PST, Sto p Dt/Tm 02/14/22 12:55:44 PST Vital Signs: 02/14/22 12:54:00 PST, Q4H Weigh Patient: 02/14/22 12:54:00 PST, [id number] Zofran: 4 mg, IV PUSH, Q4H, PRN, Nausea/Vomiting , INJ, 02/14/22 12:54:00 PST albuterol-ipratopium 3-0.5 m g/3 mL inh soln (DuoNeb): = 3 mL, INH, QID, NEB AMP, 02/14/22 17:00:00 PST albuterol: 1.25 mg, INH, Q2H, PRN, Wheezing, NEB AMP, 02/14/22 12:54:00 PST aspirin: 81 mg, ORAL, DAILY, EC TAB, 02/14/22 12 :52:00 PST atorvastatin: 10 mg, ORAL, QBedtime, TAB, 21:00:00 PST chlorthalidone 25 mg oral ta blet: chlorthalidone 25 mg oral tablet, = 0.5 Tab, ORAL, DAILY, 02/14/22 12:52:00 PST cloNIDine: 0.1 mg, ORAL, Q6H , PRN, Other (see comment), TAB, 02/14/22 12:54:00 PST docusate-senna 50 mg-8.6 mg oral tablet: = 1 Tab, ORAL, BID, TAB, 02/14/22 21:00:00 PST fenofibrate: 145 mg, ORAL, DAILY, TAB, 02/14/22 12:52:00 PST fluticasone 100 mcg inhalati on powder: = 1 Puff, INH, DAILY, POWDER, 02/14/22 12:52:00 PST glucagon: 1 mg, SUBQ, As dir ected, PRN, Blood Glucose, INJ, 02/14/22 12:54:00 PST insulin lispro Correction Sc julia Med (Body wt 70-100kg): correction scale, SUBQ, AC&Bed, 02/14/22 21:00:00 PST magnesium oxide: 400 mg, ORA L, BID, PRN, Magnesium Replacement, TAB, 02/14/22 12:51:00 PST magnesium sulfate 2 g in SWF I 50 mL: 2 gm = 50 mL, IVPB, [id number], PRN, Magnesium Replacement, IV SOLN, 02/14/22 12:51:00 PST, 50 mL/hr, 60 min potassium bicarbonate-citric acid: 20 mEq, ORAL, As directed, PRN, Potassium Replacement, EFFER TAB, 02/14/22 12:51:00 PST potassium bicarbonate-citric acid: 40 mEq, ORAL, As directed, PRN, Potassium Replacement, EFFER TAB, 02/14/22 12:51:00 PST potassium chloride 10 mEq in SWFI 100 mL: 10 mEq = 100 mL, IVPB, As directed, PRN, Potassium Replacement, IV SOLN, 02/14/22 12:51:00 PST, 100 mL/hr, 60 min sodium chloride 0.9% 1,000 m L: 1,000 mL, IV, Routine, 02/14/22 12:54:00 PST, 70 mL/hr, 14.3 hr, Order Weight 108, kg Ordered (Dispatched) Urinalysis w C/S IF Indicate d: 02/14/22 11:32:00 PST, ONCE, Stat, Not Collected Nurse Collect, Urine Clean Catch, Stop D/ PST Canceled Coronavirus COVID19 + Influe nza A+B + RSV Molecular: 02/14/22 11:42:00 PST, ONCE, Stat, Not Collected Nurse Collect, Nasopharyngeal, Yes, No, No, Unknown, Unknown, No, No, Stop Dt/Tm 02/14/22 11:43:00 PST Completed Address VTE Quality Measure Education: 02/14/22 12:55:44 PST Atrovent: 0.5 mg, INH, ONCE, STAT, NEB AMP, 02/14/22 12:46:00 PST, Stop date 02/14/22 12:46:00 PST Blood Gas Analysis: 02/14/22 11:42:00 PST, ONCE Stat, Blood Arterial, 02/14/22 11:42:00 PST C diff Decision Guide Needed : 02/15/22 0:54:10 PST, Stop Dt/Tm 02/15/22 0:54:10 PST C diff Decision Guide Needed : 02/15/22 10:35:46 PST, Stop Dt/Tm 02/15/22 10:35:46 PST CBC w Differential: 02/14/22 11:32:00 PST, ONCE, Maria Elena Priority: Stat Rpt Priority: Stat, Not Collected Lab Collect, Blood, Stop Dt/Tm 02/14/22 11:32:00 PST CRP CReactive Protein: 02/14 11:42:00 PST, ONCE, Maria Elena Priority: Stat Rpt Priority: Stat, Not Collected Lab Collect, Blood, Stop Dt/Tm 02/14/22 11:43:00 PST Chest 1 Vw Portable: 2 11:42:00 PST, Stat, Reason: Shortness of Breath, Patient not on O2, OK Comprehensive Metabolic Pane l CMP: 02/14/22 11:32:00 PST, ONCE, Maria Elena Priority: Stat Rpt Priority: Stat, Not Collected Lab Collect, Blood, Stop Dt/Tm 02/14/22 11:32:00 PST D Dimer Quantitative: 11:42:00 PST, ONCE, Maria Elena Priority: Stat Rpt Priority: Stat, Not Collected Lab Collect, Blood, Stop Dt/Tm 02/14/22 11:43:00 PST Differential Automated*: 08/01 11:44:00 PST, ONCE, Maria Elena Priority: Stat Rpt Priority: Stat, Collected Lab Collect, Blood, Stop Dt/Tm 02/14/22 11:44:00 PST Differential Automated*: 09/01 6:58:00 PST, ONCE, Maria Elena Priority: Routine Rpt Priority: Routine, Collected Lab Collect, Blood, Stop Dt/Tm 02/15/22 6:58:00 PST ED Assessment Adult: 02/14/22 11:30:41 PST HHN Treatment: 02/14/22 12:4 6:00 PST, Stat, ONCE, Stop Dt/Tm 02/14/22 12:46:00 PST Lactic Acid/Lactate Whole Bl ood: 02/14/22 11:32:00 PST, ONCE, Maria Elena Priority: Stat Rpt Priority: Stat, Not Collected Lab Collect, Blood, Stop Dt/Tm 02/14/22 11:32:00 PST Lactic Acid/Lactate: 2 13:44:00 PST, ONCE, Maria Elena Priority: TS Rpt Priority: Timed Study, Not Collected Lab Collect, Blood, Stop Dt/Tm 02/14/22 13:44:00 PST Lactic Acid/Lactate: 2 16:25:00 PST, ONCE, Maria Elena Priority: TS Rpt Priority: Timed Study, Not Collected Lab Collect, Blood, Stop Dt/Tm 02/14/22 16:25:00 PST Non-Opioid Med Reassessment: 02/14/22 12:56:47 PST, Stop Dt/Tm 02/14/22 12:56:47 PST Nutritional Services Consult : 02/14/22 18:00:39 PST, Reason for consult: Hospital policy POC G3+ Arterial ISTAT Panel : Blood, Collected Y/N, 02/14/22 11:56:06 PST, RT, Routine, 02/14/22 11:56:06 /[place] POC Glucose Panel: Blood, Co llected Y/N, 02/14/22 18:44:24 PST, RT, Routine, 02/14/22 18:44:24 /[place] POC Glucose Panel: Blood, Co llected Y/N, 02/14/22 21:26:39 PST, RT, Routine, 02/14/22 21:26:39 /[place] POC Glucose Panel: Blood, Co llected Y/N, 02/15/22 5:51:56 PST, RT, Routine, 02/15/22 5:51:56 /[place] Possible Sepsis: 02/14/22 11:38:08 PST, Stop Dt/ Tm 02/14/22 11:38:08 PST Possible Severe Sepsis: 08/01 12:13:09 PST, Stop Dt/Tm 02/14/22 12:13:09 PST Procalcitonin Level: 2 11:42:00 PST, ONCE, Maria Elena Priority: Stat Rpt Priority: Stat, Not Collected Lab Collect, Blood, Stop Dt/Tm 02/14/22 11:43:00 PST RSV Molecular: ONCE, Routine , Collected Nurse Collect, 02/14/22 11:36:00 PST, Nasopharyngeal, Stop Dt/Tm 02/14/22 11:36:00 PST Respiratory Therapy Medicati on Communication: 02/14/22 12:46:39 PST, ONCE, Stop Dt/Tm 02/14/22 12:46:39 PST Respiratory Therapy Medicati on Communication: 02/14/22 12:46:39 PST, ONCE, Stop Dt/Tm 02/14/22 12:46:39 PST Respiratory Therapy Medicati on Communication: 02/14/22 12:52:51 PST, ONCE, Stop Dt/Tm 02/14/22 12:52:51 PST Respiratory Therapy Medicati on Communication: 02/14/22 12:53:07 PST, ONCE, Stop Dt/Tm 02/14/22 12:53:07 PST Respiratory Therapy Medicati on Communication: 02/14/22 12:54:25 PST, ONCE, Stop Dt/Tm 02/14/22 12:54:25 PST Respiratory Therapy Medicati on Communication: 02/14/22 12:54:25 PST, ONCE, Stop Dt/Tm 02/14/22 12:54:25 PST Respiratory Therapy Medicati on Communication: 02/14/22 13:48:38 PST, ONCE, Stop Dt/Tm 02/14/22 13:48:38 PST Respiratory Therapy Medicati on Communication: 02/14/22 13:52:14 PST, ONCE, Stop Dt/Tm 02/14/22 13:52:14 PST Rocephin: 2 gm, IV, ONCE, In dication= Pneumonia, community-acquired, STAT, INJ, 02/14/22 11:42:00 PST, Stop date 02/14/22 11:42:00 PST SARS CoV-2 + Influenza A+B M olecular: 12/05/22 11:32:00 PST, ONCE, Routine, Not Collected Nurse Collect, Nasopharyngeal, Yes, No, No, No, No, No, No, Stop Dt/Tm 02/14/22 11:32:00 PST SOLU-Medrol: 60 mg, IV, ONCE , STAT, INJ, 02/14/22 12:46:00 PST, Stop date 02/14/22 12:46:00 PST Serum Indices: 02/14/22 11:4 4:00 PST, ONCE, Maria Elena Priority: Stat Rpt Priority: Stat, Collected Lab Collect, Blood, Stop Dt/Tm 02/14/22 11:44:00 PST Serum Indices: 02/14/22 14:2 5:00 PST, ONCE, Maria Elena Priority: TS Rpt Priority: Timed Study, Collected Lab Collect, Blood, Stop Dt/Tm 02/14/22 14:25:00 PST Serum Indices: 02/14/22 16:4 2:37 PST, ONCE, Maria Elena Priority: TS Rpt Priority: Timed Study, Collected Lab Collect, Blood, Stop Dt/Tm 02/14/22 16:42:00 PST Serum Indices: 02/15/22 6:58 :00 PST, ONCE, Maria Elena Priority: Routine Rpt Priority: Routine, Collected Lab Collect, Blood, Stop Dt/Tm 02/15/22 6:58:00 PST Troponin I: 02/14/22 11:32:0 0 PST, ONCE, Stat, Not Collected Lab Collect, Blood, Lab Collect, Stop Dt/Tm 02/14/22 11:32:00 PST Verify ePrescribe Patient Ph armacy: 02/14/22 11:30:02 PST, Use the 'Patient Pharmacy' button in the toolbar to review/update the patient's pharmacy for ePrescribe. acetaminophen: 1,000 mg, ORA L, ONCE, STAT, TAB, 02/14/22 11:47:00 PST, Stop date 02/14/22 11:47:00 PST albuterol: 5 mg, INH, ONCE, STAT, NEB AMP, 02/14/22 12:46:00 PST, Stop date 02/14/22 12:46:00 PST azithromycin: 500 mg = 1 Via l, IV, ONCE, Indication= Pneumonia, community- acquired, STAT, INJ, 02/14/22 11:42:00 PST, Stop date 02/14/22 11:42:00 PST, 250 mL/hr, 60 min sodium chloride 0.9% 2,000 m L: 2,000 mL, IV, 02/14/22 11:42:00 PST, Stop date 02/14/22 12:45:00 PST, 1000 mL/hr, 2 hr, Order Weight 108, kg Discontinued ED Skin Risk Assessment: 08/01 11:30:41 PST, Stop Dt/Tm 02/14/22 11:30:41 PST. Electrocardiogram: EP Interp, SINUS RHYTHM RIGHT BUNDLE BRANCH BLOCK [1 20+ ms QRS DURATION, UPRIGHT V1, 40+ ms S IN I/aVL/V4/V5/V6] LEFT ANTERIOR FASCICULAR BLOCK [QRS AXIS <= -45, QR IN I, RS IN II] No ectopy EKG read at 1225. Results review: Lab results : Lab 02/14/2022 11:56 PST BG - O2 Device NC - BG - Oxygen Flow 2.0 L/min NA FIO2 28 % NA BG - Patient Rate 22 br/min NA BG - Pulse Oximetry 94 % NA BG - Site RRAD - BG - Modified Juan Test PASS - ABG - pH 7.441 - Normal ABG - pCO2 33 mmHg LOW ABG - pO2 71 mmHg LOW ABG - HCO3 22.4 mEq/L Normal ABG - TCO2 23 mEq/L Normal ABG - BE -2.0 mEq/L Normal ABG - O2 Sat 95.0 % Normal 02/14/2022 11:45 PST D-Dimer, Qnt 0.45 mcg/mL FE U Normal 02/14/2022 11:44 PST WBC 8.4 K/uL Normal RBC 4.24 M/uL Normal HGB 12.6 gm/dL Normal HCT 37.7 % Normal MCV 88.9 fL Normal MCH 29.7 pg Normal MCHC 33.3 gm/dL Normal RDW 15.3 % Normal PLT 138 K/uL LOW MPV 8.60 fL Normal Auto Neutrophil Percent 85.8 % HI Auto Lymphocyte Percent 3.8 % LOW Auto Monocyte Percent 9.4 % Normal Auto Eosinophil Percent 0.5 % Normal Auto Basophil Percent 0.5 % Normal Auto Neutrophil Absolute 7.2 K/uL HI Auto Lymphocyte Absolute 0.3 K/uL LOW Auto Monocyte Absolute 0.8 K/uL Normal Auto Eosinophil Absolute 0.0 K/uL Normal Auto Basophil Absolute 0.0 K/uL Normal Sodium Level 134 mmol/L LOW Potassium Level 3.6 mmol/L Normal Chloride Level 100 mmol/L LOW CO2/Carbon Dioxide 25 mmol/L Normal Anion Gap 9.0 - Normal Glucose, Random 125 mg/dL Normal Calcium Level 9.1 mg/dL Normal Lactic Acid WB 2.17 mmol/L FL 02/14/2022 11:36 PST Influenza A Agn Molecular D etected Influenza B Agn Molecular Not Detected Patient From [facility] Area? No SARS-CoV-2 Molecular Not Detected SARS-CoV-2 First test? No Health Care Worker? No SARS-CoV-2 Is the Patient Hospitalized? No SARS-CoV-2 Is the Patient in ICU? No SARS-CoV-2 Is the Patient ? No SARS-CoV-2 Source Nasopharyngeal Symptomatic per CDC? Yes . Chest X-Ray: General Diagnostic Result Type: Chest 1 Vw Portable Result Date: February 14, 2022 12:09 PST Reason For Exam: Shortness of Breath REPORT: INDICATION: Shortness of BreathCOMPARISO N: None. FINDINGS: The lungs are well expanded and clear, and the cardiac silhouette and pulmonary vessels appear normal. There is no pulmonary vascular redistribution, pleural effusion, or pneumothorax seen. Signed by: Sean Beverly MD on 02/14/2022 12:11 PM . Reexamination/ Reevaluation Course: Clinically the patie nt appears to be moderately symptomatic and I believe has significant respiratory issues. He was hydrated vigorously i n the emergency room. He was cultured up, and given Rocephin 2 g and azithromycin for community-acquired pneumonia empirically. Influenza study came back positive as well and the patient was also given Tamiflu. Treated for his fever. He is placed on supplemental oxygen. Given breathing treatments with albuterol and Atrovent. Cultures obtained. Patient is moderately sympto matic, and at this point I believe requires hospitalization. Hospitalist notified, payment specialist, consulted as well. After initial treatments, th e patient is feeling somewhat better but still requires admission. Notes: Critical care time 30 minutes. Patient presents with significant respiratory distress, with evidence of hypoxemia. He has multiple underlying comorbid medical conditions. He was rechecked several times. Multiple diagnostic studies obtained and reviewed, pulmonary consultation and hospitalist notified. Patient requires admission to the hospital in guarded condition.. Impression and Plan Diagnosis 1. Acute respiratory failure #2 acute influenza infection #3 hypertension #4 diabetes #5 history of dyslipidemia #6 history of asthma #7 history of GERD Plan Condition: Improved, Stable. Disposition: Admit. [id number] Male Discharge Summaries Results Value Date Source Discharge Summary ATTENDING PHYSICIAN: MD Luz Marina Main 02/19 [facility] ADMIT DATE: 02/14/2022 DISCHARGE DATE: 2 [place] DISCHARGE SUMMARY DATE OF ADMISSION: 02/14/2022. DATE OF DISCHARGE: 02/16/2022. ADMISSION DIAGNOSES: 1. Acute hypoxic respiratory failure. 2. Acute influenza A infection. 3. Hypertension. 4. Hyperlipidemia. 5. Diabetes type 2. 6. Gastroesophageal reflux disease. 7. History of asthma. 8. History of obstructive sleep apnea. DISCHARGE DIAGNOSES: 1. Acute hypoxic respiratory failure. 2. Acute influenza A infection. 3. Hypertension. 4. Hyperlipidemia. 5. Diabetes type 2. 6. Gastroesophageal reflux disease. 7. History of asthma 8. History of obstructive sleep apnea. CONSULTATION: Dr. Ortiz, pulmonary. PROCEDURES: None. HISTORY OF PRESENT ILLNESS: The patient is a 76-year-old gentleman who presented to the emergency room for evaluation of shortness of breath. The patient was noted to have respiratory failure and hypoxi a secondary to influenza A. The patient was admitted to telemetry for further care. HOSPITAL COURSE: The patient was admitted to telemetry, given oxygen, nebulizer treatments, and Tamiflu. The patient improved. At this time, the patient is off oxygen, doing well. The patient wants to go home. DISCHARGE DISPOSITION: The patient was discharge d home. CONDITION ON DISCHARGE: Stable. ACTIVITY: As tolerated. DIET: Cardiac diet as tolerated. DISCHARGE MEDICATIONS: Tamif jeanne as directed. The rest of the medications are the same as home medications. FOLLOWUP CARE: The patient t o follow up with primary care doctor as an outpatient. The patient to come back to emergency room with worsening signs or symptoms. Total time spent with this patient on discharge was more than 30 minutes. MD Chito Leone RN, 02/19/2022 11:01:06 Conf # [id number] Sarah DOUGHERTY, 02/19/2022 13:13:00 Dictation ID [id number] Male History and Physicals Results Value Date Source History and Physical Patient: ROGER FREDERICK 0 02/14/2022 [facility] Age: 76 years Legal Sex: MALE : 1945 [place] Date of Service 02/14/2022 13:21 [facility] Chief Complaint Shortness of breath. History of Present Illness 76-year-old male with past medical history significant for hypertension, hyperlipidemia, type 2 diabetes mellitus, asthma, obstructive sleep apnea, gastroesophageal reflux disease presents [facility] complaint shortness of breath. Patient details that over the past 3 to 4 days he has been having progressive congestion, dry cough, mild shortness of breath. Patien t details body aches. Patien t also recently developed fevers. Patient details that his recently had an upper respiratory infection 4 days prior. Patient is visiting from [place]. Denies any chest pain. No abdominal pain or tenderness. Review of Systems Constitutional: Fever. Weakness. Generalized eriberto dy aches. Eye: No recent visual probl em, No icterus, No discharge, No blurring, No double vision. Ear/Nose/Mouth/Throat: Nasa l congestion. No decreased hearing, No ear pain, No sore throat. Respiratory: Shortness of breath. Cough. No spu nabeel production, No wheezing. Cardiovascular: No chest pa in, No palpitations, No bradycardia, No tachycardia, No peripheral edema. Gastrointestinal: No nausea , No vomiting, No diarrhea, No constipation, No abdominal pain. Genitourinary: No dysuria, No hematuria, No senthil nge in urine stream. Hematology/Lymphatics: No bruising tendency, No bleeding tendency. Endocrine: No excessive thi rst, No polyuria, No cold intolerance, No heat intolerance. Immunologic: Not immunocompromised, No recurren t fevers. Musculoskeletal: No back pa in, No neck pain, No joint pain, No muscle pain, No decreased range of motion, No trauma. Integumentary: No rash, No pruritus, No abrasio ns, No breakdown. Neurologic: Alert and orien josias X4, No abnormal balance, No confusion, No numbness, No tingling, No headache. Psychiatric: No anxiety, No depression, No yessica, Not suicidal, Not delusional, No hallucinations. Review of systems completed. Physical Exam Vitals and Measurements T: 101.3 F HR: 98 RR: 20 BP : 155/65 SpO2: 99% O2 Delivery: Room air O2 Flow: 2L/min FiO2: 28% WT: 108 kg(Dose Calc Wt.) WT: 108 kg Shock Index: 0.606 02/14/22 13:21 General: Alert and oriented. Mild distress. Eye: Pupils are equal, roun d and reactive to light, Extraocular movements are intact, Normal conjunctiva. HENT: Normocephalic, Tympan ic membranes are clear, Good light reflex, Normal hearing, Oral mucosa is moist, No pharyngeal erythema. Neck: Supple, Non-tender, No carotid bruit, No jugular venous distention. Respiratory: Tachypnea. Res pirations are non-labored, Breath sounds are equal, Symmetrical chest wall expansion, No chest wall tenderness. Cardiovascular: Normal rate , Regular rhythm, Normal peripheral perfusion, No edema, Good pulses equal in all extremities. Capillary refill exam: Bila teral: Upper extremity ( Capillary Refill Time (POLYSOMNOGRAPH TECH) returns in less than 2 seconds ), Lower extremity ( Capillary Refill Time (POLYSOMNOGRAPH TECH) returns in less than 2 seconds ). Gastrointestinal: Soft, Non -tender, Non-distended, Normal bowel sounds, No organomegaly. Genitourinary: No costovertebral angle tenderne ss. Lymphatics: No lymphadenopathy neck, axilla, gr oin. Musculoskeletal: Normal ran ge of motion, Normal strength, No tenderness, No swelling, No deformity, Normal gait. Integumentary: Warm, [place], Intact, No pallor, N o rash. Neurologic: Alert, Oriented , Normal sensory, Normal motor function, No focal deficits. Psychiatric: Cooperative, A ppropriate mood and affect, Normal judgment, Non-suicidal. Assessment/Plan _ Orders: acetaminophen (Tylenol), 65 0 mg, ORAL, Q6H, PRN, Other (see comment), TAB, 02/14/22 12:54:00 PST acetaminophen (Tylenol), 65 0 mg, RECTAL, Q6H, PRN, Other (see comment), TAB, 02/14/22 12:54:00 PST albuterol (albuterol), 1.25 mg, INH, Q2H, PRN, Wheezing, SOLN, 02/14/22 12:54:00 PST albuterol-ipratropium (albu terol-ipratopium 3-0.5 mg/3 mL inh soln (DuoNeb)), = 3 mL, INH, QID, NEB AMP, 02/14/22 17:00:00 PST aspirin (aspirin), 81 mg, ORAL, DAILY, EC TAB, 02/14/22 12:52:00 PST atorvastatin (atorvastatin), 10 mg, ORAL, DAILY , TAB, 02/14/22 12:52:00 PST bisacodyl (Dulcolax Laxativ e), 10 mg, RECTAL, DAILY, PRN, Constipation, SUPP, 02/14/22 12:54:00 PST cloNIDine (cloNIDine), 0.1 mg, ORAL, Q6H, PRN, Other (see comment), TAB, 02/14/22 12:54:00 PST diphenhydrAMINE (Benadryl), 25 mg, IV PUSH, QBedtime, PRN, Insomnia, INJ, 02/14/22 12:54:00 PST diphenhydrAMINE (Benadryl), 25 mg, IV PUSH, Q6H, PRN, Itching, INJ, 02/14/22 12:54:00 PST docusate-senna (docusate-se nna 50 mg-8.6 mg oral tablet), = 1 Tab, ORAL, BID, TAB, 02/14/22 21:00:00 PST enoxaparin (Lovenox), 40 mg , SUBQ, [id number], Indication = VTE Prophylaxis, INJ, 02/14/22 13:00:00 PST fenofibrate (fenofibrate), 145 mg, ORAL, DAILY, TAB, 02/14/22 12:52:00 PST fluticasone (fluticasone 10 0 mcg inhalation powder), = 1 Puff, INH, DAILY, POWDER, 02/14/22 12:52:00 PST glucagon (glucagon), 1 mg, SUBQ, As directed, PRN, Blood Glucose, INJ, 02/14/22 12:54:00 PST glucose (Dextrose 50% Inj 5 0 mL), = 50 mL, IV PUSH, As directed, PRN, Blood Glucose, INJ, 02/14/22 12:54:00 PST glucose (Dextrose 50% Inj 5 0 mL), = 25 mL, IV PUSH, As directed, PRN, Blood Glucose, INJ, 02/14/22 12:54:00 PST ipratropium (Atrovent), 0.5 mg, INH, Q2H, PRN, Wheezing, NEB AMP, 02/14/22 12:54:00 PST magnesium oxide (magnesium oxide), 400 mg, ORAL, BID, PRN, Magnesium Replacement, TAB, 02/14/22 12:51:00 PST magnesium sulfate (magnesiu m sulfate 2 g in SWFI 50 mL), 2 gm = 50 mL, IVPB, [id number], PRN, Magnesium Replacement, IV SOLN, 02/14/22 12:51:00 PST, 50 mL/hr, 60 min methylPREDNISolone (SOLU-Me drol), 40 mg, IV PUSH, Q6H, INJ, 02/14/22 18:00:00 PST Non-formulary medication (c hlorthalidone 25 mg oral tablet), chlorthalidone 25 mg oral tablet, = 0.5 Tab, ORAL, DAILY, 02/14/22 12:52:00 PST ondansetron (Zofran), 4 mg, IV PUSH, Q4H, PRN, Nausea/Vomiting, INJ, 02/14/22 12:54:00 PST oseltamivir (Tamiflu), 75 mg, ORAL, BID, CAP, 1 04/17/21 21:00:00 PST pantoprazole (Protonix), 40 mg, ORAL, DAILY, EC TAB, 02/14/22 12:54:00 PST potassium bicarbonate-citri c acid (potassium bicarbonate-citric acid), 40 mEq, ORAL, As directed, PRN, Potassium Replacement, EFFER TAB, 02/14/22 12:51:00 PST potassium bicarbonate-citri c acid (potassium bicarbonate-citric acid), 20 mEq, ORAL, As directed, PRN, Potassium Replacement, EFFER TAB, 02/14/22 12:51:00 PST potassium chloride (potassi um chloride 10 mEq in SWFI 100 mL), 10 mEq = 100 mL, IVPB, As directed, PRN, Potassium Replacement, IV SOLN, 02/14/22 12:51:00 PST, 100 mL/hr, 60 min potassium phosphate-sodium phosphate (K-Phos Neutral), = 1 Tab, ORAL, As directed, PRN, Phosphorus Replacement, TAB, 02/14/22 12:52:00 PST sodium chloride 0.9% 1,000 mL (sodium chloride 0.9% 1,000 mL), 1,000 mL, IV, Routine, 02/14/22 12:54:00 PST, 70 mL/hr, 14.3 hr, Order Weight 108, kg Bedrest CBC w Differential Chair Communication Communication Communication Comprehensive Metabolic Panel CMP Consistent Carbohydrate Diet - Adult CPAP/NIV Management Daily Fingerstick/Capillary Blood Sugar Fingerstick/Capillary Blood Sugar Full Code Hypoglycemia Protocol Intake and Output Intermittent Pneumatic Compression Device Magnesium Level Notify Physician Notify Physician Notify Physician Nursing Communication Electrolyte Replacement Nursing Communication Phosphate Replacement Oxygen Therapy Phosphorus Level Physician Consult Precautions Rapid Response Protocol Orders or Emergency Res ponse per Protocol Vital Signs Weigh Patient #Acute hypoxemic respiratory failure #Influenza A Admit telemetry Tamiflu 75 mg twice daily DuoNeb breathing treatments Systemic corticosteroids Maintain adequate oxygenation, O2 as needed Pulmonology consult #Hypertension Continue chlorthalidone 25 mg half tab daily Maintain BP control, as needed medication avail able #Hyperlipidemia Continue fenofibrate 145 mg daily #Type 2 diabetes mellitus Fingerstick blood glucose Insulin per sliding scale Consistent carbohydrate diet #Gastroesophageal reflux disease Continue Protonix 40 mg daily #Asthma Continue fluticasone 50 mcg inhalation 1 puff t wice daily Maintain adequate oxygenation, O2 as needed #Obstructive sleep apnea Continue CPAP at night PUD/VTE prophylaxis, Protonix, Lovenox Prognosis: GUARDED and will depend to patient's response to treatment Continue plan of care per a ttending physician Dr. Main, consulting physician. Two-Midnight Documentation I believe an inpatient admi ssion is medically necessary, as I expect the patient to require acute care services that will require 2 or more midnights. My assessment has taken into consideration this pa tient's history, comorbiditi es, the severity of current signs and symptoms, current medical needs, and the risk of an adverse event. Allergies No Known Medication Allergies Problem List Past medical history signif icant for hypertension, hyperlipidemia, type 2 diabetes mellitus, asthma, obstructive sleep apnea, gastroesophageal reflux disease. Procedure/Surgical History Past surgical history signi ficant for bilateral knee arthroplasty. Inguinal hernia repair. Medications Inpatient albuterol, 1.25 mg, INH, Q2H, PRN albuterol-ipratopium 3-0.5 mg/3 mL inh soln (Du oNeb), 3 mL, INH, QID aspirin, 81 mg, 1 Tab, ORAL, DAILY atorvastatin, 10 mg, 1 Tab, ORAL, DAILY Atrovent, 0.5 mg, 2.5 mL, INH, Q2H, PRN Benadryl, 25 mg, 0.5 mL, IV PUSH, Q6H, PRN Benadryl, 25 mg, 0.5 mL, IV PUSH, QBedtime, PRN chlorthalidone 25 mg oral tablet, 0.5 Tab, ORAL , DAILY cloNIDine, 0.1 mg, 1 Tab, ORAL, Q6H, PRN Dextrose 50% Inj 50 mL, 25 mL, IV PUSH, As dire cted, PRN Dextrose 50% Inj 50 mL, 50 mL, IV PUSH, As dire cted, PRN docusate-senna 50 mg-8.6 mg oral tablet, 1 Tab, ORAL, BID Dulcolax Laxative, 10 mg, 1 Supp, RECTAL, DAILY , PRN fenofibrate, 145 mg, 1 Tab, ORAL, DAILY fluticasone 100 mcg inhalation powder, 1 Puff, INH, DAILY glucagon, 1 mg, SUBQ, As directed, PRN K-Phos Neutral, 1 Tab, ORAL, As directed, PRN Lovenox, 40 mg, 0.4 mL, SUBQ, [id number] magnesium oxide, 400 mg, 1 Tab, ORAL, BID, PRN magnesium sulfate 2 g in SWFI 50 mL, 2 gm, 50 m L, IVPB, [id number], PRN potassium bicarbonate-citric acid, 20 mEq, 1 Ta b, ORAL, As directed, PRN potassium bicarbonate-citric acid, 40 mEq, 2 Ta b, ORAL, As directed, PRN potassium chloride 10 mEq i n SWFI 100 mL, 10 mEq, 100 mL, IVPB, As directed, PRN Protonix, 40 mg, 1 Tab, ORAL, DAILY sodium chloride 0.9% 1,000 mL, 1000 mL, IV sodium chloride 0.9% 2,000 mL, 2000 mL, IV SOLU-Medrol, 40 mg, 1 mL, IV PUSH, Q6H Tamiflu, 75 mg, 1 Cap, ORAL, BID Tylenol, 650 mg, 2 ea, RECTAL, Q6H, PRN Tylenol, 650 mg, 2 ea, ORAL, Q6H, PRN Zofran, 4 mg, 2 mL, IV PUSH, Q4H, PRN Home A/Fish Oil [id number] u oral capsule acetaminophen 650 mg rectal suppository, 650 mg , 1 Supp, RECTAL, Q4H, PRN acetaminophen 650 mg rectal suppository, 650 mg , 1 Supp, RECTAL, Q4H, PRN albuterol, 2.5 mg, INH, [id number] Aspir 81 oral enteric coated tablet, 81 mg, 1 T ab, ORAL, DAILY atorvastatin 10 mg oral tablet, 10 mg, 1 Tab, O RAL, DAILY chlorthalidone 25 mg oral tablet, 25 mg, 1 Tab, ORAL, DAILY fenofibrate 145 mg oral tablet, 145 mg, 1 Tab, ORAL, DAILY fluticasone 50 mcg/inh inhalation powder, 1 Puf f, INH, BID NovoLOG FlexPen omeprazole 40 mg oral delayed release capsule, 40 mg, 1 Cap, ORAL, DAILY Semglee Lab Results Hematology - CBC WBC 8.4 K/uL 02/14/22 11:44 PST RBC 4.24 M/uL 02/14/22 11:44 PST HGB 12.6 gm/dL 02/14/22 11:44 PST HCT 37.7 % 02/14/22 11:44 PST MCV 88.9 fL 02/14/22 11:44 PST MCH 29.7 pg 02/14/22 11:44 PST MCHC 33.3 gm/dL 02/14/22 11:44 PST RDW 15.3 % 02/14/22 11:44 PST PLT L 138 K/uL 02/14/22 11:44 PST MPV 8.60 fL 02/14/22 11:44 PST Chemistry CRP C-Reactive Protein H 12.60 mg/dL 02/14/22 11:45 PST Sodium Level L 134 mmol/L 02/14/22 11:44 PST Potassium Level 3.6 mmol/L 02/14/22 11:44 PST Chloride Level L 100 mmol/L 02/14/22 11:44 PST CO2/Carbon Dioxide 25 mmol/L 02/14/22 11:44 PST Anion Gap 9.0 02/14/22 11:44 PST Glucose, Random 125 mg/dL 02/14/22 11:44 PST BUN 19 mg/dL 02/14/22 11:44 PST Creatinine H 1.52 mg/dL 02/14/22 11:44 PST BUN/Creat Ratio 12.5 02/14/22 11:44 PST Osmolality, Calculated 272 mOsm/L 02/14/22 11:44 PST Calcium Level 9.1 mg/dL 02/14/22 11:44 PST Total Protein 7.2 gm/dL 02/14/22 11:44 PST Albumin Level 4.1 gm/dL 02/14/22 11:44 PST Globulin Level 3.1 gm/dL 02/14/22 11:44 PST A/G Ratio 1.3 02/14/22 11:44 PST ALP 45 IntUnit/L 02/14/22 11:44 PST ALT H 53 IntUnit/L 02/14/22 11:44 PST AST H 79 IntUnit/L 02/14/22 11:44 PST Bilirubin, Total 0.8 mg/dL 02/14/22 11:44 PST GFR - Non L 48 mL/min/1.73m2 02/14/22 11:44 PST GFR - L 58 mL/min/1.73m2 02/14/22 11:44 PST Lactic Acid WB H 2.17 mmol/L 02/14/22 11:44 PST FIO2 28 % 02/14/22 11:56 PST BG - O2 Device NC 02/14/22 11:56 PST BG - Oxygen Flow 2.0 L/min 02/14/22 11:56 PST BG - Patient Rate 22 br/min 02/14/22 11:56 PST BG - Pulse Oximetry 94 % 02/14/22 11:56 PST ABG - pH 7.441 02/14/22 11:56 PST ABG - pO2 L 71 mmHg 02/14/22 11:56 PST ABG - pCO2 L 33 mmHg 02/14/22 11:56 PST ABG - HCO3 22.4 mEq/L 02/14/22 11:56 PST ABG - TCO2 23 mEq/L 02/14/22 11:56 PST ABG - BE -2.0 mEq/L 02/14/22 11:56 PST ABG - O2 Sat 95.0 % 02/14/22 11:56 PST BG - Modified Juan Test PASS 02/14/22 11:56 PST BG - Site RRAD 02/14/22 11:56 PST Procalcitonin Level 0.47 ng/mL 02/14/22 11:45 PST Troponin I 0.03 ng/mL 02/14/22 11:44 PST Coagulation D-Dimer, Qnt 0.45 mcg/mL FEU 02/14/22 11:45 PST Immunology Respiratory Syncytial Virus Molecular Not Detected 02/14/22 11:36 PST SARS-CoV-2 Source Nasopharyngeal 02/14/22 11:36 PST Influenza A Agn Molecular C Detected 02/14/22 11:36 PST Influenza B Agn Molecular Not Detected 02/14/22 11:36 PST SARS-CoV-2 Molecular Not Detected 02/14/22 11:36 PST SARS-CoV-2 First test? No 02/14/22 11:36 PST Health Care Worker? No 02/14/22 11:36 PST SARS-CoV-2 Is the Patient Hospitalized? No 02/14/22 11:36 PST SARS-CoV-2 Is the Patient in ICU? No 02/14/22 11:36 PST Patient From Congregate Area? No 02/14/22 11:36 PST Symptomatic per CDC? Yes 02/14/22 11:36 PST SARS-CoV-2 Is the Patient ? No 02/14/22 11:36 PST Social History Abuse/Intent to Harm Abuse screen, adult/elderly/domestic: No signs of abuse Are you thinking of harming or killing anyone e lse?: No CSSRS Risk Level: No risk (0-24) CSSRS Suicide screening: Screening already comp leted this visit CSSRS Suicide screening ED: Complete the suicid e screening Patient denies any tobacco, alcohol, substance use. Family History Patient details there is a strong history of hypertension in the family involving multiple family members. Congestive heart failure in mother. Alzheimer's dementia in father. Diagnostics Results Chest 1 Vw Portable 02/14/22 12:11:07 INDICATION: Shortness of Breath COMPARISON: None. FINDINGS: The lungs are wel l expanded and clear, and the cardiac silhouette and pulmonary vessels appear normal. There is no pulmonary vascular redistribution, pleural effusion, or pneumothorax seen. Signed by: Sean Beverly MD on 02/14/2022 12:11 P M Seen and examined. Agreed with above plan. Acute hypoxemic respiratory failure. Influenza A . Tamiflu 75 mg twice daily [id number] Male Hospitalist Admission 02/14/2022 [facility] [place] Vital Signs Vital Sign Value Date Comments Source Respiratory rate 18 br/min 02/16/2022 60 [facility] [place] Peripheral Pulse Rate 87 bpm 02/16/2022 60 [facility] 21 % 02/16/2022 [facility] [place] Respiratory rate 13 br/min 02/16/2022 60 [facility] [place] Peripheral Pulse Rate 87 bpm 02/16/2022 60 [facility] Fi[facility] 21 % 02/16/2022 60 [facility] [place] Temperature (F) 98.7 [degF] 02/16/2022 [facility] [place] [facility] P[facility] Rate 89 bpm 02/16/2022 60 [facility] Respiratory rate 18 br/min 02/16/2022 60 [facility] [place] Systolic BP 142 mm[Hg] 02/16/2022 60 [facility] [place] Diastolic BP 82 mm[Hg] 02/16/2022 60 [facility] [place] Oxygen FiO2 21 % 02/16/2022 60 [facility] [place] Temperature (F) 98.0 [degF] 02/16/2022 60 [facility] [place] Systolic BP 150 mm[Hg] 02/16/2022 60 [facility] [place] Diastolic BP 78 mm[Hg] 02/16/2022 60 [facility] [place] Weight (kg) 108.5 kg 02/16/2022 60 [facility] [place] Temperature (F) 97.4 [degF] 02/16/2022 60 [facility] [place] Systolic BP 153 mm[Hg] 02/16/2022 60 [facility] [place] Diastolic BP 91 mm[Hg] 02/16/2022 60 [facility] [place] Oxygen flow 2 L/min 02/16/2022 60 [facility] [place] Oxygen flow 2 L/min 02/16/2022 60 [facility] [place] Oxygen flow 2 L/min 02/16/2022 60 [facility] [place] Weight (kg) 109.9 kg 02/15/2022 60 [facility] [place] HeightLength (cm) 175.24 cm 02/15/[address] [facility] [place] Weight (kg) 108 kg 02/15/2022 60 [facility] [place] Body Mass Index 35.17 kg/m2 02/15/2022 60 [facility] [place] Dose calculation weight 108 kg 02/15/2022 60 [facility] [place] Heart Rate Monitored 94 bpm 02/15/2022 [facility] [place] Heart Rate Monitored 88 bpm 02/14/2022 [facility] [place] Heart Rate Monitored 100 bpm 02/14/2022 [facility] [place] Mean BP 81 mm[Hg] 02/14/2022 60 [facility] [place] Dose calculation weight 108 kg 02/14/2022 60 [facility] [place] Encounters Location Location Encounter Encounter Reason Attending ADM CO Stat Source Details Type Number For Visit Provider Date Date 60 60 [facility] Inpatient [id number] ACUTE Atefeh 02/14 02/16 Active [facility] [place] [facility] [place] FAILURE, INFLUENZA A Procedures Procedure Code Date Perfomer Comments Source ROUTINE VENIPUNCTURE [id number] 02/16/2022 60 [facility] [place] ROUTINE VENIPUNCTURE [id number] 02/15/2022 60 [facility] [place] ROUTINE VENIPUNCTURE [id number] 02/15/2022 60 [facility] [place] ROUTINE VENIPUNCTURE [id number] 02/14/2022 60 [facility] [place] WITHDRAWAL OF ARTERIAL [id number] 02/14/2022 60 [facility] BLOOD [place] WITHDRAWAL OF ARTERIAL [id number] 02/14/2022 60 [facility] [place] ROUTINE VENIPUNCTURE [id number] 02/14/2022 60 [facility] [place] ROUTINE VENIPUNCTURE [id number] 02/14/2022 60 [facility] [place] Plan of Care Plan of Care Date Source Extracted from:Title: Shortness of breath 02/16/2022 60 [facility] Author: MD Denise, Oren Ny Date: 02/14/22 Impression and Plan Diagnosis 1. Acute respiratory failure #2 acute in fluenza infection #3 hypertension #4 diabetes #5 history of dyslipidemia #6 history of asthma #7 history of GERD Plan Condition: Improved, Stable. Disposition: Admit. Social History Social History Date Source Social History TypeResponse 02/16/2022 [facility] JENARO BOISE Smoking Status Is there a smoker in the household? No; *Do you have concerns about tobacco use in household? No; 4 or less cigarettes(less than 1/4 pack)/day in last 30 days; Never; *Are you ready to quit? N/A entered on: 02/14/22 Sex Male Social History TypeResponse 02/15/[address] [place] [address] Smoking Status Is there a smoker in the household? No; *Do you have concerns about tobacco use in household? No; 4 or less cigarettes(less than 1/4 pack)/day in last 30 days; Never; *Are you ready to quit? N/A entered on: 02/14/22 Sex Male Social History TypeResponse 02/15/2022 60 [facility] Smoking Status Is there a smoker in the household? No; *Do you have concerns about tobacco use in household? No; 4 or less cigarettes(less than 1/4 pack)/day in last 30 days; Never; *Are you ready to quit? N/A entered on: 02/14/22 Sex Male
--- OUTSIDE RECORDS SUMMARY | 2022-02-21 09:18 | XMS_ITS | Clinical Summary ---
:1945 Author Organization [facility] [place] [address] Care Team Providers Name Role Phone Tulio Ortiz MD Primary Care Provider Allergies Active Allergy Reactions Severity Noted Date Comments Allergenic Extracts Shortness Of Breath 04/10/2014 House Dust Shortness Of Breath 04/10/2014 Medications Medication Sig Dispensed Refills Start Date End Date Status lisinopril (PRINIVIL; Take 1 tablet by 0 04/10/2014 Active ZESTRIL) 40 mg tablet mouth once daily. fenofibrate Take 1 tablet by 0 04/10/2014 Active nanocrystallized mouth once daily (TRICOR) 145 mg tablet with a meal. omeprazole (PRILOSEC) 40 Take 1 capsule 0 04/10/2014 Active mg Delayed-Release by mouth once capsule daily. atorvastatin (LIPITOR) Take 1 tablet by 0 04/10/2014 Active 10 mg tablet mouth once daily. metFORMIN (GLUCOPHAGE) Take 1 tablet by 0 04/10/2014 Active 1,000 mg tablet mouth 2 times daily with meals. glipiZIDE (GLUCOTROL) 5 Take 1 tablet by 0 5 Active mg tablet mouth once daily before a meal. aspirin (ECOTRIN) 81 mg Take 1 tablet by 0 5 Active enteric coated tablet mouth once daily with a meal. fluticasone (50 mcg per Inhale 1 [place] 1 Bottle 0 04/10/2014 Active actuation) nasal into both solution (FLONASE) nostrils once daily. fluocinonide 0.05% Apply topically 1 Tube 0 04/10/2014 Active topical (LIDEX) 0.05 % to affected gel area(s) 2 times daily. Active Problems Not on file Social History Tobacco Use Types Packs/Day Years Used Date Smoking Tobacco: Never Smokeless Tobacco: Never Alcohol Use Standard Drinks/Week Comments Yes 0 (1 standard drink = 0.6 oz pure alcoho l) Sex Assigned at Date Recorded Not on file Obstetrics History Last Filed Vital Signs Vital Sign Reading Time Taken Comments Blood Pressure 131/82 01/25/2017 2:30 PM [employer] Pulse 87 01/25/2017 2:30 PM IT SYSTEM[employer] Temperature - - Respiratory Rate - - Oxygen Saturation 97% 01/25/2017 2:30 PM IT SYSTEM[employer]ER Inhaled Oxygen Concentration - - Weight - - Height - - Body Mass Index - - Plan of Treatment Health Maintenance Due Date Last Done Comments Tdap 1957 Depression screening for age 12+ 1958 BMI (ht and wt on same day) for age 18+ 1964 Hepatitis C screening for age 18-79 1964 Tetanus booster 1966 Colonoscopy through age 75 1991 Lipids for age 45-75 1991 Zoster (shingles) series for age 50+ (1 of 2) 1996 Pneumococcal series for age 65+ (1 - PCV) 2011 COVID-19 vaccine series (2 - Pfizer series) 01/29/202112/12 Influenza for age 65+ 11/11/2021 Results Not on filefrom Last 3 Months Insurance Payer Benefit Plan / Subscriber ID Effective Dates Phone Addre ss Type Group BLUE CROSS BLUE CROSS OF [id number] 2019-Present [address] [place] [address] Care Teams 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
--- OUTSIDE RECORDS SUMMARY | 2022-02-21 09:19 | XMS_ITS | Encounter Summary ---
:1945 Author Organization [facility] Address [address] [place] [address] Care Team Providers Name Role Phone Unavailable Primary Care Provider Unavailable Reason for Visit Reason Comments Pre-visit Intake Encounter Details Date Type Department Care Team Description 06/15/2021 Clinical Communication Visit Review in Pr e-visit Intake [place], [place] [address] [place] [address] Social History Tobacco Use Types Packs/Day Years Used Date Smoking Tobacco: Never Smokeless Tobacco: Never Alcohol Habits Answer Date Recorded How often do you have a drink containing alcohol? 2-4 times a month 06/16/2021 How many drinks containing alcohol do you have on a 1 or 2 06/16/2021 typical day when you are drinking? How often do you have six or more drinks on one Never 06/16/2021 occasion? Social Isolation Answer Date Recorded In a typical week, how many times do you More than three brett es a week 06/16/2021 talk on the phone with family, friends, or neighbors? How often do you get together with friends More than three t imes a week 06/16/2021 or relatives? How often do you attend samaritan or More than 4 times per year 06/16/2021 methodist services? Do you belong to any clubs or Yes 06/16/2021 organizations such as samaritan groups, unions, fraternal or athletic groups, or school groups? How often do you attend meetings of the More than 4 times pe r year 06/16/2021 clubs or organizations you belong to? Are you now , , , 06/16/2021 , never or living with a partner? Physical Activity Answer Date Recorded On average, how many days per week do you engage in moderate to 2 days 06/16/2021 strenuous exercise (like walking fast, running, jogging, dancing, swimming, biking, or other activities that cause a light or heavy sweat)? On average, how many minutes do you engage in exercise at th is 30 min 06/16/2021 level? Stress Answer Date Recorded Do you feel stress - tense, restless, nervous, or Only a lit tle 06/16/2021 anxious, or unable to sleep at night because your mind is troubled all the time - these days? Financial Resource Strain Answer Date Recorded How hard is it for you to pay for the very basics like Not h [place] at all 06/16/2021 food, housing, medical care, and heating? Intimate Partner Violence Answer Date Recorded Within the last year, have you been afraid of your partner o r No 06/16/2021 ex-partner? Within the last year, have you been humiliated or emotionall y Not asked abused in other ways by your partner or ex-partner? Within the last year, have you been kicked, hit, slapped, or No 06/16/2021 otherwise physically hurt by your partner or ex-partner? Within the last year, have you been raped or forced to have No 06/16/2021 any kind of sexual activity by your partner or ex-partner? Food Insecurity Answer Date Recorded Within the past 12 months, you worried that your food would Never true 06/16/2021 run out before you got money to buy more. Within the past 12 months, the food you bought just didn't N ever true 06/16/2021 last and you didn't have money to get more. Transportation Needs Answer Date Recorded In the past 12 months, has lack of transportation kept you f rom No 06/16/2021 medical appointments or from getting medications? In the past 12 months, has lack of transportation kept you f rom No 06/16/2021 meetings, work, or getting things needed for daily living? Housing Stability Answer Date Recorded In the last 12 months, was there a time when you were not ab le No 06/16/2021 to pay the mortgage or rent on time? In the last 12 months, how many places have you lived? 1 06/16/2021 In the last 12 months, was there a time when you did not hav e a No 06/16/[address] sleep or slept in a intermediate (including now)? Sex Assigned at Date Recorded Male 06/16/2021 2:26 PM CDT documented as of this encounter Plan of Treatment Not on filedocumented as of this encounter Visit Diagnoses Not on filedocumented in this encounter
--- OUTSIDE RECORDS SUMMARY | 2022-02-21 09:19 | XMS_ITS | Encounter Summary ---
:1945 Author Organization [facility] Address [address] [place] [address] Care Team Providers Name Role Phone Unavailable Primary Care Provider Unavailable Reason for Referral Outpatient (Routine) - Authorized Specialty Diagnoses / Procedures Referred By Contact Refer red To Contact Neurological Surgery Joan Mcgregor [facility] Bobby TORRES.Jacinta.-CRosa [address] [place] [phone] Referral ID Status Reason Start Date Expiration Date Visits V isits Requested Authorized [id number] Authorized 09/17/2021 09/17/2022 1 1 MRI/CAT/PET Scan (Routine) - Authorized Specialty Diagnoses / Procedures Referred By Contact Refer red To Contact Radiology Diagnoses Tumor Cerebral Meninges Benign (HCC) Joan Mcgregor [facility] Procedures MR Brain without and with IV Contrast P.A.-C. [address] [place] [address] [phone] Referral ID Status Reason Start Date Expiration Date Visits V isits Requested Authorized [id number] Authorized 09/17/2021 09/17/2022 1 1 Reason for Visit Outpatient (Routine) - Closed Specialty Diagnoses / Procedures Referred By Contact Refer red To Contact Neurological Surgery Sean Garcia [place] Milad Miller [address] [place] [phone] Referral ID Status Reason Start Date Expiration Date Visits Requ ested Visits Authorized [id number] Closed 06/25/2021 06/25/2022 1 1 Encounter Details Date Type Department Care Team Description 09/17/2021 Office Visit Department of Balbir, Joan Quintero, Tumor Cere bral Neurologic Surgery in [facility] -[facility]. Meninges Benign (HCC) [place], [place] 200 [facility] (Primary Dx) [address] [place] [phone] Social History Tobacco Use Types Packs/Day Years [...] or relatives? How often do you attend methodist or More than 4 times per year 06/16/2021 sabianist services? Do you belong to any clubs or Yes 06/16/2021 organizations such as methodist groups, unions, fraternal or athletic groups, or [...] minutes do you engage in exercise at is 30 min 06/16/2021 level? Stress Answer [...] place to sleep or slept in a [place] [facility] (including now)? Education Answer Date Recorded What is the highest level of school you have completed or e Doctorate 06/16/2021 highest degree you have received? Sex Assigned at Date Recorded Male 06/16/2021 2:26 PM CDT documented as of this encounter Progress Notes Joan Mcgregor [facility]Racheal. - 09/17/2021 2:30 PM CDT Images from the original note were not included. SUBJECTIVE CHIEF COMPLAINT / REASON FOR VISIT Chavo Russell is a 76 y.o. male who presents for follow-up, meningioma monitoring. 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 He developed tinnitus and dizziness for which he underwent ENT evaluation. A brain MRI for further symptom evaluation revealed an incidentally found, contrast enhancing right frontal falcine mass, consistent with a meningioma. He met withDr. Garcia in June 2021 and was recommended to monitor with serial imaging. He returns to clinic today. He denies any concerns. No headaches, nausea, vomiting, weakness, changes in speech or vision or other neurologic changes. No past surgical history on file. REVIEW OF SYSTEMS: Cardiovascular: Positive for swelling in the legs or feet and pain in the calf muscles when walking. Neurological: Positive for headaches. Psychiatric/Behavioral: Positive for erectile dysfunction. The following systems were negative: Constitutional, Skin, Eyes, ENT, Respiratory, Gastrointestinal,Hematologic, Musculoskeletal OBJECTIVE PHYSICAL EXAM AxOx4, speech is clear. Face is symmetric. EOMI. Moves all four extremities against gravity without obvious weakness. Ambulates without a gait aide DIAGNOSTICS ASSESSMENT / PLAN #1 Tumor Cerebral Meninges Benign (HCC) Mr. Russell returns for follow-up with repeat imaging. His MRI completed today is stable; there is no evidence of any tumor growth or changes at this time. Discussed meningiomas and risks for growth. Mr. Russell is asymptomatic at this time. Recommend repeat MRI in one year, he understands he cancontact the clinic with any questions or concerns prior to his next scheduled appointment. documented in this encounter Plan of Treatment Scheduled Orders Name Type Priority Associated Diagnoses Order S chedule MR Brain without Imaging RAD - Routine (most Tumor Cerebral Ex pected: and with IV inpatients and all Meninges Benign 2022 Contrast outpatients) (HCC) (Approximate), Expires: 12/18/2022 Scheduled Referrals Name Type Priority Associated Order Schedule Diagnoses Neurological Surgery Outpatient Referral Routine Expected: office visit (clinic) 2022 (Approximate), Expires: 12/18/2022 documented as of this encounter Visit Diagnoses Diagnosis Tumor Cerebral Meninges Benign (HCC) - P rimary documented in this encounter
--- OUTSIDE RECORDS SUMMARY | 2022-02-21 09:19 | XMS_ITS | Clinical Summary ---
:1945 Author Organization [facility] Address [address] [place] [address] Care Team Providers Name Role Phone Unavailable Primary Care Provider Unavailable Source Comments Patient records contain information from all sites at [facility]. For routine questions regarding patient records, call [phone] during business hours, M-F 8:00 AM - 5:00 PM Central Time. Record requests for emergency care only can be directed to [phone] at any time.[facility] Allergies Active Allergy Reactions Severity Noted Date Comments Cat Hair Standardized Allergenic Other (see comments) 05/25/2021 Extract House Dust Shortness of breath 04/10/2014 Pollen Extracts Other (see comments) 06/15/2021 Medications Medication Sig Dispensed Refills Start Date End Date Status albuterol 90 2 puffs as 0 10/29/2020 Activ e mcg/actuation inhaler needed. aspirin [address] tablet Take 81 mg by 0 04/10/2014 Active mouth daily. atorvastatin (LIPITOR) Take 10 mg by 0 04/10/2014 Active 10 mg tablet mouth daily. chlorthalidone Take 12.5 mg by 0 10/29/2020 Active (HYGROTON) 25 mg tablet mouth daily. clobetasoL (TEMOVATE) Apply 1 0 04/26/2021 Active 0.05 % cream application topically as needed. fenofibrate Take 145 mg by 0 04/10/2014 Ac tive nanocrystallized mouth daily. (TRICOR) 145 mg tablet fluticasone propionate Administer 2 0 04/10/2014 Active (FLONASE) 50 sprays into each mcg/actuation nasal nostril as spray needed. insulin glargine-yfgn 70 Units at 0 03/12/2021 Active 100 unit/mL (3 mL) bedtime. insulin pen lisinopriL Take 40 mg by 0 04/10/2014 Acti ve (PRINIVIL,ZESTRIL) 40 mouth daily. mg tablet omeprazole (PriLOSEC) Take 40 mg by 0 04/10/[address] capsule mouth at bedtime. docosahexaenoic Take 1,200 mg by 0 Active acid/epa (FISH OIL mouth 2 (two) ORAL) times a day. multivitamin (MULTIPLE Take 1 tablet by 0 Active VITAMINS ORAL) mouth daily. niacin (SLO-NIACIN) 500 Take 500 mg by 0 Active mg ER tablet mouth 2 (two) times a day. insulin aspart U-100 3 (three) times a 0 05/05/2021 Active (NovoLOG FlexPen) 100 day. 29 units pre unit/mL (3 mL) breakfast, 33 injection units pre lunch, 27 units pre dinner with a correction of 2 units insulin/50 glucose>150. BD Ultra-Fine Mini Pen USE TO INJECT 0 08/21/2021 Active Needle 31 gauge x 3/16 FOUR TIMES DAILY needle Social History Tobacco Use Types Packs/Day Years [...] or relatives? How often do you attend yazdanism or More than 4 times per year 06/16/2021 shinto services? Do you belong to any clubs or Yes 06/16/2021 organizations such as yazdanism groups, unions, fraternal or athletic groups, or [...] place to sleep or slept in a assisted (including now)? Education Answer Date Recorded What is the highest level of school you have completed or th e Doctorate 06/16/2021 highest degree you have received? Sex Assigned at Date Recorded Male 06/16/2021 2:26 PM CDT Last Filed Vital Signs Vital Sign Reading Time Taken Comments Blood Pressure - - Pulse - - Temperature 35.9 ??C (96.7 ??F) 06/16/2021 3:14 PM CDT Respiratory Rate - - Oxygen Saturation - - Inhaled Oxygen Concentration - - Weight 110 kg (242 lb 8.1 oz) 06/16/2021 3:14 PM CDT Height 174 cm (5' 8.5) 06/16/2021 3:14 PM CDT Body Mass Index 36.33 06/16/2021 3:14 PM CDT Plan of Treatment Health Maintenance Due Date Last Done Comments CT Colonography 1945 Cologuard 1945 Colonoscopy 1945 Colorectal Cancer Screening 1945 Creatinine Level 1945 FIT 1945 Fasting Glucose for Diabetes 1945 Screening Hepatitis C Screening 1945 Potassium Level 1945 Sodium Level 1945 Pneumococcal vaccine (65+ years) 06/21/2016 06/22/2015, 04/2008 (#3) Zoster Vaccines (3 of 3) 12/24/2020 10/29/2020, 01/16/2009 Depression Screening (Annual 03/13/2021 PHQ-2) DTaP,Tdap,and Td Vaccines (3 - Td 06/20/2027 06/19/2017, , or Tdap) 03/13/1997 Fall Risk Screen (Annual) Completed 09/17/2021 COVID-19 Vaccine Completed 12/30/2021, 07/05/2021, 01/08/2021, Additional history exists Influenza Vaccine Completed 12/31/2021, 02/17/2021, 11/04/2019, Additional history exists Medical Devices Implanted Type Area Director Safety Council Device Shelf Model / Identifier Expiration Serial / Date Lot Knee Implant Knee Implant Bilateral : Knee Insurance Payer Benefit Plan Subscriber ID Effective Dates Phone Address Type / Group [facility] [id number] 2019-Kari [phone] [address] [address] [address] [facility] [address] [place] [address] (Home) [place] [address]
--- OUTSIDE RECORDS SUMMARY | 2022-02-21 09:19 | XMS_ITS | Encounter Summary ---
:1945 Author Organization [facility] Address [address] [place] [id number] Care Team Providers Name Role Phone Unavailable Primary Care Provider Unavailable Reason for Referral MRI/CAT/PET Scan (Routine) - Closed Specialty Diagnoses / Procedures Referred By Contact Refer red To Contact Radiology Diagnoses Benign Neoplasm Of Meninges Unspecified (HCC) Sean Garcia M.D. [facility] Procedures MR Brain without and with IV Contrast [address] [place] [phone] Referral ID Status Reason Start Date Expiration Date Visits Requ ested Visits Authorized [id number] Closed 06/25/2021 06/25/2022 1 1 Reason for Visit MRI/CAT/PET Scan (Routine) - Closed Specialty Diagnoses / Procedures Referred By Contact Refer red To Contact Radiology Diagnoses Benign Neoplasm Of Meninges Unspecified (HCC) Sean Garcia M.D. [facility] Procedures MR Brain without and with IV Contrast [address] [place] [phone] Referral ID Status Reason Start Date Expiration Date Visits Requ ested Visits Authorized [id number] Closed 06/25/2021 06/25/2022 1 1 Encounter Details Date Type Department Care Team Description 09/17/2021 Hospital Encounter Department of Sean Garcia Benign Neoplasm Of Radiology, Tony Mccall M.D. Meninges Unspecified [facility] in [address] [place] [address] ([facility]) [facility] [phone] [place] [address] [place], [place] (Work) [phone] Social History Tobacco Use Types Packs/Day Years [...] or relatives? How often do you attend confucianist or More than 4 times per year 06/16/2021 mandaeism services? Do you belong to any clubs or Yes 06/16/2021 organizations such as confucianist groups, unions, fraternal or athletic groups, or [...] place to sleep or slept in a halfway (including now)? Education Answer Date Recorded What is the highest level of school you have completed or th e Doctorate 06/16/2021 highest degree you have received? Sex Assigned at Date Recorded Male 06/16/2021 2:26 PM CDT documented as of this encounter Medications at Time of Discharge Medication Sig Dispensed Refills Start Date End Date albuterol 90 mcg/actuation 2 puffs as needed. 0 0 10/29/[address] inhal[address] tablet Take 81 mg by mouth 0 daily. atorvastatin (LIPITOR) 10 Take 10 mg by mouth 0 0 04/10/2014 mg tablet daily. BD Ultra-Fine Mini Pen USE TO INJECT FOUR 0 08/21 Needle 31 gauge x 3/16 TIMES DAILY needle chlorthalidone (HYGROTON) Take 12.5 mg by mouth 0 10/29/2020 25 mg tablet daily. clobetasoL (TEMOVATE) 0.05 Apply 1 application 0 04/26/2021 % cream topically as needed. docosahexaenoic acid/epa Take 1,200 mg by 0 (FISH OIL ORAL) mouth 2 (two) times a day. fenofibrate Take 145 mg by mouth 0 04/10/2014 nanocrystallized (TRICOR) daily. 145 mg tablet fluticasone propionate Administer 2 sprays 0 03/14 (FLONASE) 50 mcg/actuation into each nostril as nasal spray needed. insulin aspart U-100 3 (three) times a 0 05/05/19 22 (NovoLOG FlexPen) 100 day. 29 units pre unit/mL (3 mL) injection breakfast, 33 units pre lunch, 27 units pre dinner with a correction of 2 units insulin/50 glucose>150. insulin glargine-yfgn 100 70 Units at bedtime. 0 03/12/2021 unit/mL (3 mL) insulin pen lisinopriL Take 40 mg by mouth 0 04/10/2014 (PRINIVIL,ZESTRIL) 40 mg daily. tablet multivitamin (MULTIPLE Take 1 tablet by 0 VITAMINS ORAL) mouth daily. niacin (SLO-NIACIN) 500 mg Take 500 mg by mouth 0 ER tablet 2 (two) times a day. omeprazole (PriLOSEC) 40 Take 40 mg by mouth [address] capsule at bedtime. documented as of this encounter Plan of Treatment Not on filedocumented as of this encounter Procedures Procedure Name Priority Date/Time Associated Comments Diagnosis MR BRAIN WITHOUT RAD - Routine 09/17/2021 9:44 Benign Neoplasm Of R esults for this AND WITH IV (most inpatients AM CDT Meninges procedure a re in CONTRAST and all Unspecified (HCC) the result s outpatients) section. documented in this encounter Results MR Brain without and with IV Contrast (09/17/2021 9:44 AM CDT) Anatomical Region Laterality Modality Head, Brain, Neuroradiology RST LOS, Neuroradiology LIZA N/A Magnetic Resonance LOS, Neuroradiology FLA [facility] Specimen (Source) Anatomical Collection Method Collection Time Re ceived Time Location / / Volume Laterality 09/17/2021 9:50 AM CDT Impressions 09/17/2021 9:59 AM CDT Stable right frontal parafalcine meningi yasir. Narrative 09/17/2021 9:59 AM CDT EXAM: MR BRAIN WITHOUT AND WITH IV CONTRAST COMPARISON: Outside examination dated . 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 Adjacent superior sagittal sinus remains patent. No signal changes demonstrated within the adjacent frontal lobe. Overlying calvarium is intact. Mild volume loss an d leukoaraiosis remains stable. Dolichoectasia of the left vertebrobasilar artery. Diffusion imagin g is negative. Susceptibility weighted imaging demonstrates no intracranial blood product. No extra- axial collections are noted. Mild polypoid mucosal thickening demonstrated within the left maxillary sinus. Orbits and paranasal sinuses are otherwise unremarkable. Procedure Note Ben Mitchell M.D. - 09/17/2021Formatti ng of this note might be different from the original. EXAM: MR BRAIN WITHOUT AND WITH IV CONTR AST COMPARISON: Outside examination dated . 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 Adjacent superior sagittal sinus remains patent. No signal changes demonstrated within the adjacent frontal lobe. Overlying calvarium is intact. Mild volume loss an d leukoaraiosis remains stable. Dolichoectasia of the left vertebrobasilar artery. Diffusion imagin g is negative. Susceptibility weighted imaging demonstrates no intracranial blood product. No extra- axial collections are noted. Mild polypoid mucosal thickening demonstrated within the left maxillary sinus. Orbits and paranasal sinuses are otherwise unremarkable. IMPRESSION: Stable right frontal parafalcine meningi yasir. Sean RAYA MRI PROCEDURES documented in this encounter Visit Diagnoses Diagnosis Benign Neoplasm Of Meninges Unspecified (HCC) documented in this encounter Administered Medications Inactive Administered Medications - up to 3 most recent administrations Medication Order MAR Action Action Date Dose Rate Site gadobutrol injection 0.01-30 mL Given 09/17/2021 9:33 AM CDT 11 mL (GADAVIST) 0.01-30 mL, intravenous, Once in imaging, contrast, Starting on Mon09/17/21 at 0836, For 1 dose, Imaging Protocol Orders, Dose per Radiant Medication Guidelines Intrathecal doses greater than 0.25 mL not recommended. documented in this encounter
--- OUTSIDE RECORDS SUMMARY | 2022-02-21 09:19 | XMS_ITS | Continuity of Care Document ---
:1945 Author Organization 60 [facility] nathan Address Unavailable , Care Team Providers Name Role Phone MD RAYNE Primary Care Physician Unavailable Encounter 60 [address] [id number] Date(s): 02/14/22 - 02/16/22 [id number] [place] [address] Discharge Disposition: Home or Self Care Attending Physician: MD Jose David, Luz Marina Admitting Physician: MD Main Atefeh Allergies, Adverse Reactions, Alerts No Known Medication Allergies Assessment and Plan Extracted from: Title: Shortness of breath Author: MD Denise, Oren Ny Date: 1 04/17/21 Impression and Plan Diagnosis 1. Acute respiratory failure #2 acute in fluenza infection #3 hypertension #4 diabetes #5 history of dyslipidemia #6 history of asthma #7 history of GERD Plan Condition: Improved, Stable. Disposition: Admit. Functional Status 02/16/22 Transportation to destination Private vehicle Patient discharge to Home 02/16/22 Identify/notify family caregiver Yes 02/14/22 Anticipated discharge needs None Medications A/Fish Oil 56500 u oral capsule 0 Refill(s), Maintenance Start Date: 02/14/22 Status: Orderedalbuterol 2.5 mg, INH, [id number], 0 Refill(s), Maintenance Start Date: 02/14/22 Status: OrderedAspir 81 oral enteric coated tablet = 1 Tab, ORAL, DAILY, 0 Refill(s), Maintenance Start Date: 02/14/22 Status: Orderedatorvastatin 10 mg oral tablet = 1 Tab, ORAL, DAILY, 0 Refill(s), Maintenance Start Date: 02/14/22 Status: Orderedchlorthalidone 25 mg oral tablet = 1 Tab, ORAL, DAILY, 1/2 daily, 0 Refill(s), Maintenance Start Date: 02/14/22 Status: Orderedfenofibrate 145 mg oral tablet = 1 Tab, ORAL, DAILY, 0 Refill(s), Maintenance Start Date: 02/14/22 Status: Orderedfluticasone 50 mcg/inh inhalation powder 1 Puff, INH, BID, 0 Refill(s), Maintenance Start Date: 02/14/22 Status: OrderedNovoLOG FlexPen 0 Refill(s), Maintenance Start Date: 02/14/22 Status: Orderedomeprazole 40 mg oral delayed release capsule 1 Cap, ORAL, DAILY, 0 Refill(s), Maintenance Start Date: 02/14/22 Status: OrderedSemglee 70 mg evenings, 0 Refill(s), Maintenance Start Date: 02/14/22 Status: OrderedTamiflu 75 mg oral capsule = 1 Cap, ORAL, BID, X 5 Day(s), # 10 Cap, 0 Refill(s), Acute, Pharmacy: [facility] #[id number], 175.24, cm, 02/14/22 17:56:00 PST, Height/Length (cm), 108, kg, 02/14/22 17:56:00 PST, Dose calculation weight (kg) Start Date: 02/16/22 Stop Date: 02/21/22 Status: Ordered Procedures Procedure Date Related Diagnosis Body Site Status ROUTINE VENIPUNCTURE 02/16/22 Complet ed ROUTINE VENIPUNCTURE 02/15/22 Complet ed ROUTINE VENIPUNCTURE 02/14/22 Complet ed ROUTINE VENIPUNCTURE 02/14/22 Complet ed ROUTINE VENIPUNCTURE 02/14/22 Complet ed ROUTINE VENIPUNCTURE 02/14/22 Complet ed WITHDRAWAL OF ARTERIAL BLOOD 02/14/22 Completed WITHDRAWAL OF ARTERIAL BLOOD 02/14/22 Completed Results Laboratory List Name Date CBC w Differential 02/16/22 Comprehensive Metabolic Panel CMP (CMP Comprehensive M etabolic Panel) 02/16/22 Differential Automated* 02/16/22 Magnesium Level 02/16/22 Phosphorus Level 02/16/22 CBC w Differential 02/15/22 Comprehensive Metabolic Panel CMP (CMP Comprehensive M etabolic Panel) 02/15/22 Differential Automated* 02/15/22 Magnesium Level 02/15/22 Phosphorus Level 02/15/22 Lactic Acid/Lactate 02/14/22 Lactic Acid/Lactate 02/14/22 POC G3+ Arterial ISTAT Panel 02/14/22 CRP CReactive Protein 02/14/22 D Dimer Quantitative 02/14/22 Procalcitonin Level 02/14/22 CBC w Differential 02/14/22 Comprehensive Metabolic Panel CMP 02/14/22 Differential Automated* 02/14/22 Lactic Acid/Lactate Whole Blood 02/14/22 Troponin I 02/14/22 RSV Molecular 02/14/22 SARS CoV-2 + Influenza A+B Molecular 02/14/22 Most recent to oldest 1 2 3 [Reference Range]: Lactic Acid Level [0.5-2.2 2.3 mmol/L 2.8 mmol/L mmol/L] *HI* *HI* (02/14/22 4:42 PM) (02/14/22 2:25 PM) CRP C-Reactive Protein 12.60 mg/dL [0.00-0.90 mg/dL] *HI* (02/14/22 11:45 AM) Influenza A Agn Molecular Detected 1 [Not Detected] *CRIT* (02/14/22 11:36 AM) Influenza B Agn Molecular Not Detected [Not Detected] (02/14/22 11:36 AM) Procalcitonin Level [<=0.50 0.47 ng/mL ng/mL] (02/14/22 11:45 AM) GFR - Non 53 mL/min/1.73m2 45 mL/min/1.73m2 48 mL/min/1.73m2 [>=61 mL/min/1.73m2] *LOW* *LOW* *LOW* (02/16/22 6:34 AM) (02/15/22 6:58 AM) (02/14/22 11: 44 AM) GFR - [>=61 64 mL/min/1.73m2 55 mL/min/1.73m2 5 8 mL/min/1.73m2 mL/min/1.73m2] (02/16/22 6:34 AM) *LOW* *LOW* (02/15/22 6:58 AM) (02/14/22 11:44 AM) Lactic Acid WB [0.56-1.39 2.17 mmol/L mmol/L] *HI* (02/14/22 11:44 AM) Respiratory Syncytial Virus Not Detected - Molecular [Not Detected -] (02/14/22 11:36 AM) Auto Neutrophil Percent 90.5 % 89.9 % 85.8 % [49.4-72.6 %] *HI* *HI* *HI* (02/16/22 6:34 AM) (02/15/22 6:58 AM) (02/14/22 11: 44 AM) Auto Neutrophil Absolute 9.5 K/uL 8.5 K/uL 7.2 K/u L [2.0-6.4 K/uL] *HI* *HI* *HI* (02/16/22 6:34 AM) (02/15/22 6:58 AM) (02/14/22 11: 44 AM) Auto Lymphocyte Percent 4.8 % 5.1 % 3.8 % [18.0-40.0 %] *LOW* *LOW* *LOW* (02/16/22 6:34 AM) (02/15/22 6:58 AM) (02/14/22 11: 44 AM) Auto Lymphocyte Absolute 0.5 K/uL 0.5 K/uL 0.3 K/u L [1.5-3.0 K/uL] *LOW* *LOW* *LOW* (02/16/22 6:34 AM) (02/15/22 6:58 AM) (02/14/22 11: 44 AM) Auto Monocyte Percent 4.7 % 5.0 % 9.4 % [4.9-10.1 %] *LOW* (02/15/22 6:58 AM) (02/14/22 11:44 AM) (02/16/22 6:34 AM) Auto Monocyte Absolute 0.5 K/uL 0.5 K/uL 0.8 K/uL [0.3-0.8 K/uL] (02/16/22 6:34 AM) (02/15/22 6:58 AM) (02/14/22 11: 44 AM) Auto Basophil Percent 0.0 % 0.0 % 0.5 % [0.2-1.2 %] *LOW* *LOW* (02/14/22 11:44 A M) (02/16/22 6:34 AM) (02/15/22 6:58 AM) Auto Basophil Absolute 0.0 K/uL 0.0 K/uL 0.0 K/uL [0.0-0.1 K/uL] (02/16/22 6:34 AM) (02/15/22 6:58 AM) (02/14/22 11: 44 AM) Auto Eosinophil Percent 0.0 % 0.0 % 0.5 % [0.0-5.0 %] (02/16/22 6:34 AM) (02/15/22 6:58 AM) (02/14/22 11: 44 AM) Auto Eosinophil Absolute 0.0 K/uL 0.0 K/uL 0.0 K/u L [0.0-0.4 K/uL] (02/16/22 6:34 AM) (02/15/22 6:58 AM) (02/14/22 11: 44 AM) SARS-CoV-2 Molecular [Not Not Detected Detected] (02/14/22 11:36 AM) SARS-CoV-2 Source Nasopharyngeal *NA* (02/14/22 11:36 AM) Health Care Worker? No (02/14/22 11:36 AM) Patient From Congregate Area? No (02/14/22 11:36 AM) Symptomatic per CDC? Yes (02/14/22 11:36 AM) SARS-CoV-2 First test? No (02/14/22 11:36 AM) SARS-CoV-2 Is the Patient No Hospitalized? (02/14/22 11:36 AM) SARS-CoV-2 Is the Patient No ? (02/14/22 11:36 AM) SARS-CoV-2 Is the Patient in No ICU? (02/14/22 11:36 AM) BG - Modified Juan Test PASS - *NA* (02/14/22 11:56 AM) WBC [3.7-10.5 K/uL] 10.5 K/uL 9.4 K/uL 8.4 K/uL (02/16/22 6:34 AM) (02/15/22 6:58 AM) (02/14/22 11: 44 AM) RBC [3.81-5.87 M/uL] 3.90 M/uL 3.91 M/uL 4.24 M/uL (02/16/22 6:34 AM) (02/15/22 6:58 AM) (02/14/22 11: 44 AM) HGB [12.0-17.9 gm/dL] 11.7 gm/dL 11.6 gm/dL 12.6 gm/dL *LOW* *LOW* (02/14/22 11:44 A M) (02/16/22 6:34 AM) (02/15/22 6:58 AM) HCT [34.4-50.2 %] 34.3 % 34.9 % 37.7 % *LOW* (02/15/22 6:58 AM) (02/14/22 11:44 AM) (02/16/22 6:34 AM) MCV [80.0-99.8 fL] 88.0 fL 89.4 fL 88.9 fL (02/16/22 6:34 AM) (02/15/22 6:58 AM) (02/14/22 11: 44 AM) MCH [26.7-34.0 pg] 29.9 pg 29.6 pg 29.7 pg (02/16/22 6:34 AM) (02/15/22 6:58 AM) (02/14/22 11: 44 AM) MCHC [31.0-37.0 gm/dL] 33.9 gm/dL 33.2 gm/dL 33.3 gm/d L (02/16/22 6:34 AM) (02/15/22 6:58 AM) (02/14/22 11: 44 AM) RDW [12.0-15.8 %] 15.5 % 15.5 % 15.3 % (02/16/22 6:34 AM) (02/15/22 6:58 AM) (02/14/22 11: 44 AM) PLT [139-422 K/uL] 146 K/uL 123 K/uL 138 K/uL (02/16/22 6:34 AM) *LOW* *LOW* (02/15/22 6:58 AM) (02/14/22 11:44 AM) MPV [6.84-10.28 fL] 9.00 fL 9.30 fL 8.60 fL (02/16/22 6:34 AM) (02/15/22 6:58 AM) (02/14/22 11: 44 AM) ABG - pH [7.350-7.450 -] 7.441 - 2 (02/14/22 11:56 AM) ABG - pCO2 [35-45 mmHg] 33 mmHg *LOW* (02/14/22 11:56 AM) ABG - pO2 [80-105 mmHg] 71 mmHg *LOW* (02/14/22 11:56 AM) ABG - HCO3 [22.0-26.0 mEq/L] 22.4 mEq/L (02/14/22 11:56 AM) ABG - TCO2 [23-27 mEq/L] 23 mEq/L (02/14/22 11:56 AM) ABG - BE [-2.0-3.0 mEq/L] -2.0 mEq/L (02/14/22 11:56 AM) ABG - O2 Sat [95.0-99.0 %] 95.0 % (02/14/22:56 AM) BG - Site RRAD - *NA* (02/14/22:56 AM) Sodium Level [135-145 mmol/L] 132 mmol/L 136 mmol/L 13 4 mmol/L *LOW* (02/15/22 6:58 AM) *LOW* (02/16/22 6:34 AM) (02/14/22 11:44 AM) Potassium Level [3.5-5.0 4.1 mmol/L 4.5 mmol/L 3.6 mmo l/L mmol/L] (02/16/22 6:34 AM) (02/15/22 6:58 AM) (02/14/22 11: 44 AM) Chloride Level [101-111 101 mmol/L 104 mmol/L 100 mmol /L mmol/L] (02/16/22 6:34 AM) (02/15/22 6:58 AM) *LOW* (02/14/22 11:44 A M) CO2/Carbon Dioxide [24-32 22 mmol/L 24 mmol/L 25 mmo l/L mmol/L] *LOW* (02/15/22 6:58 AM) (02/14/22 11:44 AM) (02/16/22 6:34 AM) Anion Gap [5.0-15.0 -] 9.0 - 8.0 - 9.0 - (02/16/22 6:34 AM) (02/15/22 6:58 AM) (02/14/22 11: 44 AM) Glucose, Random [<=200 mg/dL] 316 mg/dL 302 mg/dL 12 5 mg/dL *HI* *HI* (02/14/22 11:44 A M) (02/16/22 6:34 AM) (02/15/22 6:58 AM) BUN [8-20 mg/dL] 34 mg/dL 27 mg/dL 19 mg/dL *HI* *HI* (02/14/22 11:44 A M) (02/16/22 6:34 AM) (02/15/22 6:58 AM) Creatinine [0.60-1.30 mg/dL] 1.39 mg/dL 1.59 mg/dL 1.5 2 mg/dL *HI* *HI* *HI* (02/16/22 6:34 AM) (02/15/22 6:58 AM) (02/14/22 11: 44 AM) BUN/Creat Ratio [12.0-20.0] 24.5 17.0 12.5 *HI* (02/15/22 6:58 AM) (02/14/22 11:44 AM) (02/16/22 6:34 AM) Osmolality, Calculated 284 mOsm/L 288 mOsm/L 272 mOsm/ L *NA* *NA* *NA* (02/16/22 6:34 AM) (02/15/22 6:58 AM) (02/14/22 11: 44 AM) Calcium Level [8.4-10.2 8.6 mg/dL 8.7 mg/dL 9.1 mg/d L mg/dL] (02/16/22 6:34 AM) (02/15/22 6:58 AM) (02/14/22 11: 44 AM) Magnesium Level [1.7-2.8 2.2 mg/dL 2.0 mg/dL mg/dL] (02/16/22 6:34 AM) (02/15/22 6:58 AM) Phosphorus Level [2.5-4.5 2.8 mg/dL 2.4 mg/dL mg/dL] (02/16/22 6:34 AM) *LOW* (02/15/22 6:58 AM) Total Protein [6.4-8.3 gm/dL] 6.6 gm/dL 6.6 gm/dL 7. 2 gm/dL (02/16/22 6:34 AM) (02/15/22 6:58 AM) (02/14/22 11: 44 AM) Albumin Level [3.2-5.5 gm/dL] 3.5 gm/dL 3.6 gm/dL 4. 1 gm/dL (02/16/22 6:34 AM) (02/15/22 6:58 AM) (02/14/22 11: 44 AM) Globulin Level [1.5-3.5 3.1 gm/dL 3.0 gm/dL 3.1 gm/d L gm/dL] (02/16/22 6:34 AM) (02/15/22 6:58 AM) (02/14/22 11: 44 AM) A/G Ratio [1.1-2.2] 1.1 1.2 1.3 (02/16/22 6:34 AM) (02/15/22 6:58 AM) (02/14/22 11: 44 AM) Bilirubin, Total [0.2-1.2 0.6 mg/dL 0.5 mg/dL 0.8 mg /dL mg/dL] (02/16/22 6:34 AM) (02/15/22 6:58 AM) (02/14/22 11: 44 AM) AST [10-42 IntUnit/L] 50 IntUnit/L 58 IntUnit/L 79 IntUnit /L *HI* *HI* *HI* (02/16/22 6:34 AM) (02/15/22 6:58 AM) (02/14/22 11: 44 AM) ALT [5-36 IntUnit/L] 40 IntUnit/L 44 IntUnit/L 53 IntUnit/ L *HI* *HI* *HI* (02/16/22 6:34 AM) (02/15/22 6:58 AM) (02/14/22 11: 44 AM) ALP [30-115 IntUnit/L] 35 IntUnit/L 36 IntUnit/L 45 IntUni t/L (02/16/22 6:34 AM) (02/15/22 6:58 AM) (02/14/22 11: 44 AM) Troponin I [0.00-0.04 ng/mL] 0.03 ng/mL (02/14/22 11:44 AM) D-Dimer, Qnt [<=0.50 mcg/mL 0.45 mcg/mL FEU FEU] (02/14/22 11:45 AM) 1Result Comment: NOTIFIED TO DIPTI GROVE RN AT 02/14/2022 12:13 BY LIVIA MONTALVO.2 Result Comment: Device Code: 60 iSTAT ED Facility: [id number] Location: [facility] Serial Number: [id number] Lift Supervisor Code: [id number] Lift Supervisor Name: Carroll Terrell Lot: [id number] for Microbiology Reports Name Date Culture Blood (Blood Culture) 02/14/22 Culture Blood (Blood Culture) 02/14/22 Microbiology Reports TEST:Culture Blood STATUS:Order in Progress BODY SITE: SOURCE:Blood COLLECTED DATE/TIME:02/14/22 11:44 AMPRELIMINARY REPORTNo growth at 2 days. TEST:Culture Blood STATUS:Order in Progress BODY SITE: SOURCE:Blood COLLECTED DATE/TIME:02/14/22 11:44 AMPRELIMINARY REPORTNo growth at 2 days. Radiology Reports Exam Date Time Procedure Performing Provider Status 02/14/22 12:09 PM Chest 1 Vw Portable Malik Brower Jr (Verified) Notes:(Chest 1 Vw Portable) Reason For Exam: Shortness of BreathREPORT INDICATION: Shortness of Breath COMPARISON: None. FINDINGS: The lungs are well expanded and clear, and the cardiac silhouette and pulmonary vessels appear normal. There is no pulmonary vascular redistribution, pleural effusion, or pneumothorax seen. Signed by: Sean Beverly MD on 02/14/2022 12:11 PM Final Vital Signs Most recent to oldest 1 2 3 [Reference Range]: Temperature (F) 98.7 DegF 98.0 DegF 97.4 DegF [97-100.4 DegF] (02/16/22 11:01 AM) (02/16/22 8:00 AM) (02/16/22 5: 43 AM) Peripheral Pulse Rate 87 bpm 87 bpm 89 bpm [60-99 bpm] (02/16/22 11:55 AM) (02/16/22 11:44 AM) (02/16/22 1 1:01 AM) Heart Rate Monitored 94 bpm 88 bpm 100 bpm [60-99 bpm] (02/14/22 4:00 PM) (02/14/22 2:55 PM) *HI* (02/14/22 2:00 PM ) Respiratory rate 18 br/min 13 br/min 18 br/min [14-20 br/min] (02/16/22 11:55 AM) *LOW* (02/16/22 11:0 1 AM) (02/16/22 11:44 AM) Blood Pressure 142/82 mmHg 150/78 mmHg 153/91 mmHg [90-139/60-89 mmHg] *HI* *HI* *HI* (02/16/22 11:01 AM) (02/16/22 8:00 AM) (02/16/22 5: 43 AM) Pulse Oximetry 97 % 97 % 97 % (02/16/22 12:11 PM) (02/16/22 11:55 AM) (02/16/22 1:44 AM) Pulse oximetry method Continuous Continuous Continuous (02/16/22 11:01 AM) (02/16/22 10:25 AM) (02/16/22 8 :00 AM) Oxygen delivery Room air Room air Room air (02/16/22 12:11 PM) (02/16/22 11:01 AM) (02/16/22 0:25 AM) Activity with SPO2 At rest At rest At rest monitoring (02/16/22 11:01 AM) (02/16/22 8:00 AM) (02/16/22 12 :53 AM) Oxygen flow 2 L/min 2 L/min 2 L/min (02/16/22 12:53 AM) (02/15/22 8:49 PM) (02/15/22 8: 28 PM) Oxygen %/FiO2 [18-100 21 % 21 % 21 % %] (02/16/22 11:55 AM) (02/16/22 11:44 AM) (02/16/22 8 :47 AM) MAP Non-Invasive 81 mmHg [65-110 mmHg] (02/14/22 1:54 PM) Temp site Oral Oral Oral (02/16/22 11:01 AM) (02/16/22 8:00 AM) (02/16/22 5: 43 AM) BP position Sitting Lying Lying (02/16/22 11:01 AM) (02/16/22 8:00 AM) (02/16/22 5: 43 AM) BP location Left arm Left arm Left arm (02/16/22 11:01 AM) (02/16/22 10:25 AM) (02/16/22 8 :00 AM) Blood Pressure Method Automatic Automatic Automatic (02/16/22 11:01 AM) (02/16/22 8:00 AM) (02/16/22 5: 43 AM) Peripheral pulse site Non-invasive BP device Non-invasive BP dev ice Non-invasive BP device (02/16/22 11:01 AM) (02/16/22 8:00 AM) (02/16/22 5: 43 AM) Weight (kg) 108.5 kg 109.9 kg 108 kg (02/16/22 6:00 AM) (02/15/22 6:00 AM) (02/14/22 5:5 5 PM) Dose calculation 108 kg 108 kg weight (kg) (02/14/22 5:55 PM) (02/14/22 11:21 AM) Body Mass Index [30 35.17 kg/m2 kg/m2] *HI* (02/14/22 5:55 PM) Weight measured method Bed scale Bed scale (02/16/22 6:00 AM) (02/15/22 6:00 AM) Height/Length (cm) 175.24 cm (02/14/22 5:55 PM) Neurological norm WDL, Alert, Alert, Alert, Age appropriate, Age appropriate Age appropriate, Behavior appropriate, (02/14/22 5:40 PM) Behavior appropriate, Rubberizing Mechanic strength firm and equ al, Rubberizing Mechanic strength firm and equal, Moves extremities equally, Moves extremities equally, No pain, No pain, Opens eyes spontaneously, Opens eyes spontaneously, Oriented X 4, Oriented X 4, PERRLA, PERRLA, Verbal response appropriate Verbal response appropriate (02/14/22 8:00 PM) (02/14/22 8:01 PM) Social History Social History Type Response Smoking Status Is there a smoker in the [facility]? No; *Do you have concerns about tobacco use in household? No; 4 or less cigarettes(less than 1/4 pack)/day in last 30 days; Never; *Are you ready to quit? N/A entered on: 02/14/22 Sex Male Consult note MD Ortiz Vijay: PERFORM, MODIFY, SIGN, VERIFY Event Display: Consultation Authored Date: Patient: ROGER FREDERICK Age: 76 years Legal Sex: Male : 1945 Author: MD Ortiz Vijay Basic Information Provider information/ cc: Physicians Involved With Care ? Admitting: ? MD Main Atefeh ? Attending: ? MD Main Atefeh ? Consulting: ? MD Ortiz Vijay ? Primary Care: ? NONE, . Acute hypoxic respiratory failure/influenza A tracheobronchitis/asthma exacerbation Chief Complaint Increasing cough congestion fever shortness of breath History of Present Illness The patient is a 36-year-old male with possible history of asthma/OSAS/DM2/hypertension hyperlipidemia obesity admitted with increasing cough shortness of breath chest congestion for last 4 to 5 days and now with fevers and body aches. He is [facility]. Laboratory work-up in the ER with white count of 8 platelets 1 38,000 CRP 12.6 sodium 134 creatinine 1.5 ALT 53 AST 79 lactate 2.17 patient was hypoxic requiring O2 2 L follow-up ABG with a pH of 7.44 PCO2 to 33 PO2 71 bicarb 22 O2 saturation 95%. Patient is influenza A positive COVID-negative chest x-ray no acute infiltrates. Patient is [facility]. Review of Systems Constitutional: Fever, Fatigue. Eye: Negative. Ear/Nose/Mouth/Throat: Negative. Respiratory: Shortness of breath, Cough, Wheezing, Apnea. Cardiovascular: Negative. Gastrointestinal: Negative. Genitourinary: Negative. Hematology/Lymphatics: Negative. Endocrine: Negative. Immunologic: Negative. Musculoskeletal: Joint pain. Integumentary: Negative. Neurologic: Alert and oriented X4. Psychiatric: Anxiety. ROS reviewed as documented in chart Health Status Allergies: Allergic Reactions (All) No Known Medication Allergies Current medications: Home Medications (12) Active A/Fish Oil 87683 u oral capsule ??(Documented??02/14/22) acetaminophen 650 mg rectal suppository 650 mg = 1 Supp, PRN, RECTAL, Q4H??(Documented??02/14/22) acetaminophen 650 mg rectal suppository 650 mg = 1 Supp, PRN, RECTAL, Q4H??(Documented??02/14/22) albuterol 2.5 mg, INH, [id number]??(Documented??02/14/22) Aspir 81 oral enteric coated tablet 81 mg = 1 Tab, ORAL, DAILY??(Documented??02/14/22) atorvastatin 10 mg oral tablet 10 mg = 1 Tab, ORAL, DAILY??(Documented??02/14/22) chlorthalidone 25 mg oral tablet 25 mg = 1 Tab, ORAL, DAILY??(Documented??02/14/22) fenofibrate 145 mg oral tablet 145 mg = 1 Tab, ORAL, DAILY??(Documented??02/14/22) fluticasone 50 mcg/inh inhalation powder 1 Puff, INH, BID??(Documented??02/14/22) NovoLOG FlexPen ??(Documented??02/14/22) omeprazole 40 mg oral delayed release capsule 40 mg = 1 Cap, ORAL, DAILY??(Documented??02/14/22) Semglee ??(Documented??02/14/22) , (Selected) Inpatient Medications Ordered Atrovent: 0.5 mg, INH, Q2H, PRN, Wheezing, NEB AMP, 02/14/22 12:54:00 PST Benadryl: 25 mg, IV PUSH, Q6H, PRN, Itching, INJ, 02/14/22 12:54:00 PST Benadryl: 25 mg, IV PUSH, QBedtime, PRN, Insomnia, INJ, 02/14/22 12:54:00 PST Dextrose 50% Inj 50 mL: = 25 mL, IV PUSH, As directed, PRN, Blood Glucose, INJ, 02/14/22 12:54:00 PST Dextrose 50% Inj 50 mL: = 50 mL, IV PUSH, As directed, PRN, Blood Glucose, INJ, 02/14/22 12:54:00 PST Dulcolax Laxative: 10 mg, RECTAL, DAILY, PRN, Constipation, SUPP, 02/14/22 12:54:00 PST K-Phos Neutral: = 1 Tab, ORAL, As directed, PRN, Phosphorus Replacement, TAB, 02/14/22 12:52:00 PST Lovenox: 40 mg, SUBQ, DAILY, Indication = VTE Prophylaxis, INJ, 02/14/22 18:00:00 PST Protonix: 40 mg, ORAL, DAILY, EC TAB, 02/14/22 12:54:00 PST SOLU-Medrol: 40 mg, IV PUSH, Q6H, INJ, 02/14/22 18:00:00 PST Tamiflu: 75 mg, ORAL, BID, ORAL SUSP, 02/14/22 21:00:00 PST Tylenol: 650 mg, ORAL, Q6H, PRN, Other (see comment), TAB, 02/14/22 12:54:00 PST Tylenol: 650 mg, RECTAL, Q6H, PRN, Other (see comment), SUPP, 02/14/22 12:54:00 PST Zofran: 4 mg, IV PUSH, Q4H, PRN, Nausea/Vomiting, INJ, 02/14/22 12:54:00 PST albuterol-ipratopium 3-0.5 mg/3 mL inh soln (DuoNeb): = 3 mL, INH, QID, NEB AMP, 02/14/22 17:00:00 PST albuterol: 1.25 mg, INH, Q2H, PRN, Wheezing, NEB AMP, 02/14/22 12:54:00 PST aspirin: 81 mg, ORAL, DAILY, EC TAB, 02/14/22 12:52:00 PST atorvastatin: 10 mg, ORAL, QBedtime, TAB, 02/14/22 21:00:00 PST chlorthalidone 25 mg oral tablet: chlorthalidone 25 mg oral tablet, = 0.5 Tab, ORAL, DAILY, 02/15/2212:52:00 PST cloNIDine: 0.1 mg, ORAL, Q6H, PRN, Other (see comment), TAB, 02/14/22 12:54:00 PST docusate-senna 50 mg-8.6 mg oral tablet: = 1 Tab, ORAL, BID, TAB, 02/14/22 21:00:00 PST fenofibrate: 145 mg, ORAL, DAILY, TAB, 02/14/22 12:52:00 PST fluticasone 100 mcg inhalation powder: = 1 Puff, INH, DAILY, POWDER, 02/14/22 12:52:00 PST glucagon: 1 mg, SUBQ, As directed, PRN, Blood Glucose, INJ, 02/14/22 12:54:00 PST magnesium oxide: 400 mg, ORAL, BID, PRN, Magnesium Replacement, TAB, 02/14/22 12:51:00 PST magnesium sulfate 2 g in SWFI 50 mL: 2 gm = 50 mL, IVPB, [id number], PRN, Magnesium Replacement, IV SOLN, 02/14/22 12:51:00 PST, 50 mL/hr, 60 min potassium bicarbonate-citric acid: 20 mEq, ORAL, As directed, PRN, Potassium Replacement, EFFER TAB,02/14/22 12:51:00 PST potassium bicarbonate-citric acid: 40 mEq, ORAL, As directed, PRN, Potassium Replacement, EFFER TAB,02/14/22 12:51:00 PST potassium chloride 10 mEq in SWFI 100 mL: 10 mEq = 100 mL, IVPB, As directed, PRN, Potassium Replacement, IV SOLN, 02/14/22 12:51:00 PST, 100 mL/hr, 60 min sodium chloride 0.9% 1,000 mL: 1,000 mL, IV, Routine, 02/14/22 12:54:00 PST, 70 mL/hr, 14.3 hr, Order Weight 108, kg Documented Medications Documented A/Fish Oil 02526 u oral capsule: 0 Refill(s), Maintenance Aspir 81 oral enteric coated tablet: = 1 Tab, ORAL, DAILY, 0 Refill(s), Maintenance NovoLOG FlexPen: 0 Refill(s), Maintenance Semglee: 70 mg evenings, 0 Refill(s), Maintenance acetaminophen 650 mg rectal suppository: = 1 Supp, RECTAL, Q4H, PRN PRN for fever, 0 Refill(s), Maintenance acetaminophen 650 mg rectal suppository: = 1 Supp, RECTAL, Q4H, PRN PRN for pain, 0 Refill(s), Maintenance albuterol: 2.5 mg, INH, [id number], 0 Refill(s), Maintenance atorvastatin 10 mg oral tablet: = 1 Tab, ORAL, DAILY, 0 Refill(s), Maintenance chlorthalidone 25 mg oral tablet: = 1 Tab, ORAL, DAILY, 1/2 daily, 0 Refill(s), Maintenance fenofibrate 145 mg oral tablet: = 1 Tab, ORAL, DAILY, 0 Refill(s), Maintenance fluticasone 50 mcg/inh inhalation powder: 1 Puff, INH, BID, 0 Refill(s), Maintenance omeprazole 40 mg oral delayed release capsule: 1 Cap, ORAL, DAILY, 0 Refill(s), Maintenance, Active inpatient medications ACTIVE INPT MEDS: albuterol-ipratropium (albuterol-ipratopium 3-0.5 mg/3 mL inh soln (DuoNeb)) 3 mL INH QID aspirin 81 mg ORAL DAILY atorvastatin 10 mg ORAL QBedtime docusate-senna (docusate-senna 50 mg-8.6 mg oral tablet) 1 Tab ORAL BID enoxaparin (Lovenox) 40 mg SUBQ DAILY fenofibrate 145 mg ORAL DAILY fluticasone (fluticasone 100 mcg inhalation powder) 1 Puff INH DAILY methylPREDNISolone (SOLU-Medrol) 40 mg IV PUSH Q6H Non-formulary medication (chlorthalidone 25 mg oral tablet) [...] Q6H diphenhydrAMINE (Benadryl) 25 mg IV PUSH QBedtime glucagon 1 mg SUBQ As directed glucose (Dextrose 50% Inj 50 mL) 25 mL IV PUSH As directed glucose (Dextrose 50% Inj 50 mL) 50 mL IV PUSH As directed ipratropium (Atrovent) 0.5 mg INH Q2H magnesium oxide 400 mg ORAL BID magnesium sulfate (magnesium sulfate 2 g in SWFI 50 mL) 2 gm IVPB [id number] ondansetron (Zofran) 4 mg IV PUSH Q4H potassium bicarbonate-citric acid 20 mEq ORAL As directed potassium bicarbonate-citric acid 40 mEq ORAL As directed potassium chloride (potassium chloride 10 mEq in SWFI 100 mL) 10 mEq IVPB As directed potassium phosphate-sodium phosphate (K-Phos Neutral) 1 Tab ORAL As directed ONE TIME MEDS: (Completed) acetaminophen 1,000 mg ORAL ONCE (Completed) albuterol 5 mg INH ONCE (Completed) azithromycin 500 mg IV ONCE (Completed) cefTRIAXone (Rocephin) 2 gm IV ONCE (Completed) ipratropium (Atrovent) 0.5 mg INH ONCE (Completed) methylPREDNISolone (SOLU-Medrol) 60 mg IV ONCE ACTIVE IV MEDS: sodium chloride 0.9% 1,000 mL 1,000 mL 70 mL/hr Histories Past Medical History: No active or resolved past medical history items have been selected or recorded. Family History: No family history items have been selected or recorded. Procedure history: No active procedure history items have been selected or recorded. Social History Social & Psychosocial Habits *Alcohol Screen 02/14/2022 *How often do you have a drink containing alcohol? Never (0) *How many standard drinks containing alcohol do you have on Never (0) *How often do you have six or more drinks on one occasion? Never (0) *Ready to change? N/A *Home/Environment Screen 02/14/2022 *Living situation: Home/Independent Home type: Single family house Lives with: Significant other *Tobacco Use Screen 02/14/2022 Is there a smoker in the household? No *Do you have concerns about tobacco use in household? No *Over the past 30 days, what and how much have you smoked? 4 or less cigarettes(less *Over the past 30 days, what has been your smokeless tobacco Never *Are you ready to quit? N/A *Substance Abuse Screen 02/14/2022 *Do you have concerns about substance abuse for yourself or No *Nutrition Screen 02/14/2022 *1. Decreased appetite Yes (1) *2. Recent unintended weight loss None (0) *3. If unable to answer, does pt look frail/underwt? No (0) *Nutritional Risks: No nutritional risk dusty, pt is diabetic Type of diet: Diabetic diet *Spiritual/Cultural Screen 02/14/2022 *Spiritual support is available to you; would you like me to No *Is Amish/Spirituality/Tavia important to you as you cope No . Physical Examination VS/Measurements: Inpt. Vital signs (ST) Vital Signs (last 24 hrs) Last Charted Minimum Maximum Temp(??F) 98.8 (FEB 14 17:37 PST) 98.8 (FEB 14 17:37 PST) H 101.6 (FEB 14 11:21 PST) Heart Rate 89 (FEB 14 17:37 PST) 88 (FEB 14 14:55 PST) H 100 (FEB 14 14:00 PST) Resp Rate 20 (FEB 14 17:40 PST) 15 (FEB 14 14:55 PST) H 27 (FEB 14 16:00 PST) SBP 126 (FEB 14 17:37 PST) 126 (FEB 14 17:37 PST) H 155 (FEB 14 11:21 PST) DBP 67 (FEB 14 17:37 PST) L 58 (FEB 14 13:54 PST) 73 (FEB 14 16:00 PST) SpO2 97 (FEB 14 17:40 PST) 90 (FEB 14 11:21 PST) 99 (FEB 14 13:21 PST) OXYFIO2 28 (FEB 14 13:21 PST) 28 (FEB 14 13:07 PST) 28 (FEB 14 13:07 PST) OXYFLOW 2 (FEB 14 17:40 PST) 2 (FEB 14 11:23 PST) 2 (FEB 14 11:23 PST) OXYDELIVERY Nasal cannula Room a Room a (FEB 14 17:40 PST) (FEB 14 11:21 PST) (FEB 14 11:21 PST) . General: Alert and oriented, Mild distress. Eye: Extraocular movements are intact, Normal conjunctiva. HENT: Normocephalic. Neck: Supple, Non-tender, No carotid bruit, No jugular venous distention. Respiratory: Respirations: Tachypneic. Breath sounds: Bilateral, Rhonchi present, Prolonged expiratory phase. Cardiovascular: Regular rhythm, S1, S2. Gastrointestinal: Soft, Non-tender, Non-distended, Normal bowel sounds. Genitourinary: No costovertebral angle tenderness. Musculoskeletal: Normal range of motion. Integumentary: Warm. [...] PST Reason For Exam: Shortness of Breath REPORT:?? INDICATION: Shortness of BreathCOMPARISON: None. FINDINGS: The lungs are well expanded and clear, and the cardiac silhouette and pulmonary vessels appear normal. There is no pulmonary vascular redistribution, pleural effusion, or pneumothorax seen. Signed by: Sean Beverly MD on 02/14/2022 12:11 PM . Impression and Plan Diagnosis: Active Diagnoses ?Influenza A (Influenza due to other identified influenza virus with other respiratory manifestations) ?Acute hypoxemic respiratory failure (Acute respiratory failure with hypoxia) . Acute hypoxic respiratory failure Influenza A tracheobronchitis DM2 Renal insufficiency acute on chronic Hypertension Hyperlipidemia Thrombocytopenia OSAS Obesity GERD Plan: Panculture Tamiflu IV Rocephin/Zithromax Bronchodilators/ICS/O2 supplementation Continue home medications Respiratory isolation Accu-Cheks/SSI Nocturnal CPAP use compliant DVT/PUD prophylaxis Condition prognosis guarded Electronically signed by: MD Angel, Jeronimo Signed on: 15-Feb-2022 18:26 PST History and Physical Examination LOUIS Guerra Armen: MODIFY, PERFORM, MODIFY, MODIFY Event Display: History and Physical Examination Authored Date: Patient: ROGER FREDERICK ? Age: 76 years?Legal Sex: MALE?: 1945 Date of Service 02/14/2022 13:21 PST Chief Complaint Shortness of breath. History of Present Illness 76-year-old male with past medical history significant for hypertension, hyperlipidemia, type 2 diabetes mellitus, asthma, obstructive sleep apnea, gastroesophageal reflux disease presents [facility] emergency department complaint shortness of breath.?? Patient details that over thepast 3 to 4 days he has been having progressive congestion, dry cough, mild shortness of breath.?? Patient details body aches.?? Patient also recently developed fevers.?? Patient details that his recently had an upper respiratory infection 4 days prior.?? Patient is visiting from [place].?? Denies any chest pain.?? No abdominal pain or tenderness. Review of Systems Constitutional:??Fever. ??Weakness.?? Generalized body aches. Eye: ??No recent visual problem, No icterus, No discharge, No blurring, No double vision. Ear/Nose/Mouth/Throat:??Nasal congestion. ??No decreased hearing, No ear pain, No sore throat. ?? Respiratory: Shortness of breath. ??Cough.?? No sputum production, No wheezing. Cardiovascular: ??No chest pain, No palpitations, No bradycardia, No tachycardia, No peripheral edema.?? Gastrointestinal: ??No nausea, No vomiting, No diarrhea, No constipation, No abdominal pain.?? Genitourinary: ??No dysuria, No hematuria, No change in urine stream. Hematology/Lymphatics: ??No bruising tendency, No bleeding tendency. Endocrine: ??No excessive thirst, No polyuria, No cold intolerance, No heat intolerance. Immunologic: ??Not immunocompromised, No recurrent fevers. Musculoskeletal: ??No back pain, No neck pain, No joint pain, No muscle pain, No decreased range ofmotion, No trauma. ?? Integumentary: ??No rash, No pruritus, No abrasions, No breakdown.? Neurologic: ??Alert and oriented X4, No abnormal balance, No confusion, No numbness, No tingling, No headache. ?? Psychiatric: ??No anxiety, No depression, No yessica, Not suicidal, Not delusional, No hallucinations. ? Review of systems completed. Physical Exam Vitals and Measurements T: 101.3 F HR: 98 RR: 20 BP: 155/65 SpO2: 99% O2 Delivery: Room air O2 Flow: 2L/min FiO2: 28% WT:??108 kg(Dose Calc Wt.)??WT:??108 kg ??Shock Index: ??0.606 02/14/22 13:21 ?? General: ??Alert and oriented. ??Mild distress. Eye: ??Pupils are equal, round and reactive to light, Extraocular movements are intact, Normal conjunctiva. HENT: ??Normocephalic, Tympanic membranes are clear, Good light reflex, Normal hearing, Oral mucosais moist, No pharyngeal erythema. Neck: ??Supple, Non-tender, No carotid bruit, No jugular venous distention.?? Respiratory:??Tachypnea.?? Respirations are non-labored, Breath sounds are equal, Symmetrical chestwall expansion, No chest wall tenderness. ?? Cardiovascular: ??Normal rate, Regular rhythm, Normal peripheral perfusion, No edema, Good pulses equal in all extremities. ?? Capillary refill exam: Bilateral: Upper extremity ( Capillary Refill Time (BOOM STICK MAN) returns in less than 2 seconds ), Lower extremity ( Capillary Refill Time (BOOM STICK MAN) returns in less than 2 seconds ). ?? Gastrointestinal: ??Soft, Non-tender, Non-distended, Normal bowel sounds, No organomegaly. ?? Genitourinary: ??No costovertebral angle tenderness. Lymphatics: ??No lymphadenopathy neck, axilla, groin. ?? Musculoskeletal: ??Normal range of motion, Normal strength, No tenderness, No swelling, No deformity, Normal gait. ?? Integumentary: ??Warm, [place], Intact, No pallor, No rash. ?? Neurologic: ??Alert, Oriented, Normal sensory, Normal motor function, No focal deficits. ?? Psychiatric: ??Cooperative, Appropriate mood & affect, Normal judgment, Non- suicidal. ?? Assessment/Plan _ Orders: acetaminophen (Tylenol), 650 mg, ORAL, Q6H, PRN, Other (see comment), TAB, 02/14/22 12:54:00 PST acetaminophen (Tylenol), 650 mg, RECTAL, Q6H, PRN, Other (see comment), TAB, 02/14/22 12:54:00 PST albuterol (albuterol), 1.25 mg, INH, Q2H, PRN, Wheezing, SOLN, 02/14/22 12:54:00 PST albuterol-ipratropium (albuterol-ipratopium 3-0.5 mg/3 mL inh soln (DuoNeb)), = 3 mL, INH, QID, NEBAMP, 02/14/22 17:00:00 PST aspirin (aspirin), 81 mg, ORAL, DAILY, EC TAB, 02/14/22 12:52:00 PST atorvastatin (atorvastatin), 10 mg, ORAL, DAILY, TAB, 02/14/22 12:52:00 PST bisacodyl (Dulcolax Laxative), 10 mg, RECTAL, DAILY, PRN, Constipation, SUPP, 02/14/22 12:54:00 PST cloNIDine (cloNIDine), 0.1 mg, ORAL, Q6H, PRN, Other (see comment), TAB, 02/14/22 12:54:00 PST diphenhydrAMINE (Benadryl), 25 mg, IV PUSH, QBedtime, PRN, Insomnia, INJ, 02/14/22 12:54:00 PST diphenhydrAMINE (Benadryl), 25 mg, IV PUSH, Q6H, PRN, Itching, INJ, 02/14/22 12:54:00 PST docusate-senna (docusate-senna 50 mg-8.6 mg oral tablet), = 1 Tab, ORAL, BID, TAB, 02/14/22 21:00:00 PST enoxaparin (Lovenox), 40 mg, SUBQ, [id number], Indication = VTE Prophylaxis, INJ, 02/14/22 13:00:00 PST fenofibrate (fenofibrate), 145 mg, ORAL, DAILY, TAB, 02/14/22 12:52:00 PST fluticasone (fluticasone 100 mcg inhalation powder), = 1 Puff, INH, DAILY, POWDER, 02/14/22 12:52:00 PST glucagon (glucagon), 1 mg, SUBQ, As directed, PRN, Blood Glucose, INJ, 02/14/22 12:54:00 PST glucose (Dextrose 50% Inj 50 mL), = 50 mL, IV PUSH, As directed, PRN, Blood Glucose, INJ, 02/14/22 12:54:00 PST glucose (Dextrose 50% Inj 50 mL), = 25 mL, IV PUSH, As directed, PRN, Blood Glucose, INJ, 02/14/22 12:54:00 PST ipratropium (Atrovent), 0.5 mg, INH, Q2H, PRN, Wheezing, NEB AMP, 02/14/22 12:54:00 PST magnesium oxide (magnesium oxide), 400 mg, ORAL, BID, PRN, Magnesium Replacement, TAB, 02/14/22 12:51:00 PST magnesium sulfate (magnesium sulfate 2 g in SWFI 50 mL), 2 gm = 50 mL, IVPB, [id number], PRN, Magnesium Replacement, IV SOLN, 02/14/22 12:51:00 PST, 50 mL/hr, 60 min methylPREDNISolone (SOLU-Medrol), 40 mg, IV PUSH, Q6H, INJ, 02/14/22 18:00:00 PST Non-formulary medication (chlorthalidone 25 mg oral tablet), chlorthalidone 25 mg oral tablet, = 0.5 Tab, ORAL, DAILY, 02/14/22 12:52:00 PST ondansetron (Zofran), 4 mg, IV PUSH, Q4H, PRN, Nausea/Vomiting, INJ, 02/14/22 12:54:00 PST oseltamivir (Tamiflu), 75 mg, ORAL, BID, CAP, 02/14/22 21:00:00 PST pantoprazole (Protonix), 40 mg, ORAL, DAILY, EC TAB, 02/14/22 12:54:00 PST potassium bicarbonate-citric acid (potassium bicarbonate-citric acid), 40 mEq, ORAL, As directed, PRN, Potassium Replacement, EFFER TAB, 02/14/22 12:51:00 PST potassium bicarbonate-citric acid (potassium bicarbonate-citric acid), 20 mEq, ORAL, As directed, PRN, Potassium Replacement, EFFER TAB, 02/14/22 12:51:00 PST potassium chloride (potassium chloride 10 mEq in SWFI 100 mL), [...] Precautions Rapid Response Protocol Orders or Emergency Response per Protocol Vital Signs Weigh Patient ?? #Acute hypoxemic respiratory failure #Influenza A Admit telemetry Tamiflu 75 mg twice daily DuoNeb breathing treatments Systemic corticosteroids Maintain adequate oxygenation, O2 as needed Pulmonology consult ?? #Hypertension Continue chlorthalidone 25 mg half tab daily Maintain BP control, as needed medication available ?? #Hyperlipidemia Continue fenofibrate 145 mg daily ?? #Type 2 diabetes mellitus Fingerstick blood glucose Insulin per sliding scale Consistent carbohydrate diet ?? #Gastroesophageal reflux disease Continue Protonix 40 mg daily ?? #Asthma Continue fluticasone 50 mcg inhalation 1 puff twice daily Maintain adequate oxygenation, O2 as needed ?? #Obstructive sleep apnea Continue CPAP at night ?? PUD/VTE prophylaxis, Protonix, Lovenox ?? Prognosis: GUARDED and will depend to patient???s response to treatment?? Continue plan of care per attending physician Dr. Main, consulting physician. Two-Midnight Documentation I believe an inpatient admission is medically necessary, as I expect the patient to require acute care services that will require 2 or more midnights. My assessment has taken into consideration this patient's history, comorbidities, the severity of current signs and symptoms, current medical needs, and the risk of an adverse event. Allergies No Known Medication Allergies Problem List ?? Past medical history significant for hypertension, hyperlipidemia, type 2 diabetes mellitus, asthma, obstructive sleep apnea, gastroesophageal reflux disease. Procedure/Surgical History Past surgical history significant for bilateral knee arthroplasty. ??Inguinal hernia repair. Medications Inpatient albuterol, 1.25 mg, INH, Q2H, PRN albuterol-ipratopium 3-0.5 mg/3 mL inh soln (DuoNeb), 3 mL, INH, QID aspirin, 81 mg, 1 Tab, ORAL, DAILY atorvastatin, 10 mg, 1 Tab, ORAL, DAILY Atrovent, 0.5 mg, 2.5 mL, INH, Q2H, PRN Benadryl, 25 mg, 0.5 mL, IV PUSH, Q6H, PRN Benadryl, 25 mg, 0.5 mL, IV PUSH, QBedtime, PRN chlorthalidone 25 mg oral tablet, 0.5 Tab, ORAL, DAILY cloNIDine, 0.1 mg, 1 Tab, ORAL, Q6H, PRN Dextrose 50% Inj 50 mL, 25 mL, IV PUSH, As directed, PRN Dextrose 50% Inj 50 mL, 50 mL, IV PUSH, As directed, PRN docusate-senna 50 mg-8.6 mg oral tablet, 1 Tab, ORAL, BID Dulcolax Laxative, 10 mg, 1 Supp, RECTAL, DAILY, PRN fenofibrate, 145 mg, 1 Tab, ORAL, DAILY fluticasone 100 mcg inhalation powder, 1 Puff, INH, DAILY glucagon, 1 mg, SUBQ, As directed, PRN K-Phos Neutral, 1 Tab, ORAL, As directed, PRN Lovenox, 40 mg, 0.4 mL, SUBQ, [id number] magnesium oxide, 400 mg, 1 Tab, ORAL, BID, PRN magnesium sulfate 2 g in SWFI 50 mL, 2 gm, 50 mL, IVPB, [id number], PRN potassium bicarbonate-citric acid, 20 mEq, 1 Tab, ORAL, As directed, PRN potassium bicarbonate-citric acid, 40 mEq, 2 Tab, ORAL, As directed, PRN potassium chloride 10 mEq in SWFI 100 mL, 10 mEq, 100 mL, [...] IV PUSH, Q4H, PRN Home A/Fish Oil 46840 u oral capsule acetaminophen 650 mg rectal suppository, 650 mg, 1 Supp, RECTAL, Q4H, PRN acetaminophen 650 mg rectal suppository, 650 mg, 1 Supp, RECTAL, Q4H, PRN albuterol, 2.5 mg, INH, [id number] Aspir 81 oral enteric coated tablet, 81 mg, 1 Tab, ORAL, DAILY atorvastatin 10 mg oral tablet, 10 mg, 1 Tab, ORAL, DAILY chlorthalidone 25 mg oral tablet, 25 mg, 1 Tab, ORAL, DAILY fenofibrate 145 mg oral tablet, 145 mg, 1 Tab, ORAL, DAILY fluticasone 50 mcg/inh inhalation powder, 1 Puff, INH, BID NovoLOG FlexPen omeprazole 40 mg oral delayed release capsule, 40 mg, 1 Cap, ORAL, DAILY Semglee Lab Results ?? Hematology - CBC ? WBC 8.4??K/uL 02/14/22 11:44 PST RBC 4.24??M/uL 02/14/22 11:44 PST HGB 12.6??gm/dL 02/14/22 11:44 PST HCT 37.7??% 02/14/22 11:44 PST MCV 88.9??fL 02/14/22 11:44 PST MCH 29.7??pg 02/14/22 11:44 PST MCHC 33.3??gm/dL 02/14/22 11:44 PST RDW 15.3??% 02/14/22 11:44 PST PLT L 138??K/uL 02/14/22 11:44 PST MPV 8.60??fL 02/14/22 11:44 PST Chemistry ? CRP C-Reactive Protein H 12.60??mg/dL 02/14/22 11:45 PST Sodium Level L 134??mmol/L 02/14/22 11:44 PST Potassium Level 3.6??mmol/L 02/14/22 11:44 PST Chloride Level L 100??mmol/L 02/14/22 11:44 PST CO2/Carbon Dioxide 25??mmol/L 02/14/22 11:44 PST Anion Gap 9.0?? 02/14/22 11:44 PST Glucose, Random 125??mg/dL 02/14/22 11:44 PST BUN 19??mg/dL 02/14/22 11:44 PST Creatinine H 1.52??mg/dL 02/14/22 11:44 PST BUN/Creat Ratio 12.5?? 02/14/22 11:44 PST Osmolality, Calculated 272??mOsm/L 02/14/22 11:44 PST Calcium Level 9.1??mg/dL 02/14/22 11:44 PST Total Protein 7.2??gm/dL 02/14/22 11:44 PST Albumin Level 4.1??gm/dL 02/14/22 11:44 PST Globulin Level 3.1??gm/dL 02/14/22 11:44 PST A/G Ratio 1.3?? 02/14/22 11:44 PST ALP 45??IntUnit/L 02/14/22 11:44 PST ALT H 53??IntUnit/L 02/14/22 11:44 PST AST H 79??IntUnit/L 02/14/22 11:44 PST Bilirubin, Total 0.8??mg/dL 02/14/22 11:44 PST GFR - Non L 48??mL/min/1.73m2 02/14/22 11:44 PST GFR - L 58??mL/min/1.73m2 02/14/22 11:44 PST Lactic Acid WB H 2.17??mmol/L 02/14/22 11:44 PST FIO2 28??% 02/14/22 11:56 PST BG - O2 Device NC?? 02/14/22 11:56 PST BG - Oxygen Flow 2.0??L/min 02/14/22 11:56 PST BG - Patient Rate 22??br/min 02/14/22 11:56 PST BG - Pulse Oximetry 94??% 02/14/22 11:56 PST ABG - pH 7.441?? 02/14/22 11:56 PST ABG - pO2 L 71??mmHg 02/14/22 11:56 PST ABG - pCO2 L 33??mmHg 02/14/22 11:56 PST ABG - HCO3 22.4??mEq/L 02/14/22 11:56 PST ABG - TCO2 23??mEq/L 02/14/22 11:56 PST ABG - BE -2.0??mEq/L 02/14/22 11:56 PST ABG - O2 Sat 95.0??% 02/14/22 11:56 PST BG - Modified Juan Test PASS?? 02/14/22 11:56 PST BG - Site RRAD?? 02/14/22 11:56 PST Procalcitonin Level 0.47??ng/mL 02/14/22 11:45 PST Troponin I 0.03??ng/mL 02/14/22 11:44 PST Coagulation ? D-Dimer, Qnt 0.45??mcg/mL FEU 02/14/22 11:45 PST Immunology ? Respiratory Syncytial Virus Molecular Not Detected?? 02/14/22 11:36 PST SARS-CoV-2 Source Nasopharyngeal?? 02/14/22 11:36 PST Influenza A Agn Molecular C Detected?? 02/14/22 11:36 PST Influenza B Agn Molecular Not Detected?? 02/14/22 11:36 PST SARS-CoV-2 Molecular Not Detected?? 02/14/22 11:36 PST SARS-CoV-2 First test? No?? 02/14/22 11:36 PST Health Care Worker? No?? 02/14/22 11:36 PST SARS-CoV-2 Is the Patient Hospitalized? No?? 02/14/22 11:36 PST SARS-CoV-2 Is the Patient in ICU? No?? 02/14/22 11:36 PST Patient From Congregate Area? No?? 02/14/22 11:36 PST Symptomatic per CDC? Yes?? 02/14/22 11:36 PST SARS-CoV-2 Is the Patient ? No?? 02/14/22 11:36 PST Social History ?Abuse/Intent to Harm ?Abuse screen, adult/elderly/domestic: No signs of abuse ?Are you thinking of harming or killing anyone else?: No ?CSSRS Risk Level: No risk (0-24) ?CSSRS Suicide screening: Screening already completed this visit ?CSSRS Suicide screening ED: Complete the suicide screening ? Patient denies any tobacco, alcohol, substance use. Family History Patient details there is a strong history of hypertension in the family??involving multiple family members.?? Congestive heart failure in mother. ??Alzheimer's dementia in father. Diagnostics Results Chest 1 Vw Portable ?? 02/14/22 12:11:07 INDICATION: Shortness of Breath ?? COMPARISON: None. ?? FINDINGS: The lungs are well expanded and clear, and the cardiac silhouette and pulmonary vessels appear normal. There is no pulmonary vascular redistribution, pleural effusion, or pneumothorax seen. ?? Signed by: Sean Beverly MD on 02/14/2022 12:11 PM Electronically signed by: LOUIS Guerra Armen Signed on: 14-Feb-2022 13:56 MD Kirkpatrick Atefeh: PERFORM Event Display: History and Physical Examination Authored Date: Seen and examined. Agreed with above plan. Acute hypoxemic respiratory failure. Influenza A. Tamiflu 75 mg twice daily Electronically signed by: MD Jose David, Luz Marina Signed on: 14-Feb-2022 15:47 PST Critical care medicine Hospital Progress note MD Ortiz Vijay: PERFORM, SIGN, VERIFY Event Display: Critical Care Progress Note Authored Date: Patient: ROGER FREDERICK Age: 76 years Legal Sex: Male : 1945 Author: MD Ortiz Vijay Basic Information Cough chest congestion wheezing is better Using nocturnal CPAP On O2 2 L Review of Systems Constitutional: Fatigue. Eye: Negative. Ear/Nose/Mouth/Throat: Negative. Respiratory: Shortness of breath, Cough, Wheezing, Apnea. Cardiovascular: Negative. Gastrointestinal: Negative. Genitourinary: Negative. Hematology/Lymphatics: Negative. Endocrine: Negative. Immunologic: Negative. Musculoskeletal: Joint pain. Integumentary: Negative. Neurologic: Alert and oriented X4. Psychiatric: Negative. ROS reviewed as documented in chart Health Status Allergies: Allergies (1) Active Severity Reaction No Known Medication Allergies None Documented Problem List: Problem List Current medications: Continuous Infusions (1) 1.) SODIUM CHLORIDE 0.9% 1,000 ML - 02/15/2022 11:59 - 70 mL , (Selected) Inpatient Medications Ordered Atrovent: 0.5 mg, INH, Q2H, PRN, Wheezing, NEB AMP, 02/14/22 12:54:00 PST Benadryl: 25 mg, IV PUSH, Q6H, PRN, Itching, INJ, 02/14/22 12:54:00 PST Benadryl: 25 mg, IV PUSH, QBedtime, PRN, Insomnia, INJ, 02/14/22 12:54:00 PST Cepacol Lozenges: = 1 Lozenge, ORAL, Q4H, PRN, Sore Throat, KATELYN, 02/15/22 17:53:00 PST Dextrose 50% Inj 50 mL: = 25 mL, IV PUSH, As directed, PRN, Blood Glucose, INJ, 02/14/22 12:54:00 PST Dextrose 50% Inj 50 mL: = 50 mL, IV PUSH, As directed, PRN, Blood Glucose, INJ, 02/14/22 12:54:00 PST Dulcolax Laxative: 10 mg, RECTAL, DAILY, PRN, Constipation, SUPP, 02/14/22 12:54:00 PST K-Phos Neutral: = 1 Tab, ORAL, As directed, PRN, Phosphorus Replacement, TAB, 02/14/22 12:52:00 PST Lovenox: 40 mg, SUBQ, DAILY, Indication = VTE Prophylaxis, INJ, 02/14/22 18:00:00 PST Protonix: 40 mg, ORAL, DAILY, EC TAB, 02/14/22 12:54:00 PST SOLU-Medrol: 40 mg, IV PUSH, Q6H, INJ, 02/14/22 18:00:00 PST Tamiflu: 75 mg, ORAL, BID, ORAL SUSP, 02/14/22 21:00:00 PST Tylenol: 650 mg, ORAL, Q6H, PRN, Other (see comment), TAB, 02/14/22 12:54:00 PST Tylenol: 650 mg, RECTAL, Q6H, PRN, Other (see comment), SUPP, 02/14/22 12:54:00 PST Zofran: 4 mg, IV PUSH, Q4H, PRN, Nausea/Vomiting, INJ, 02/14/22 12:54:00 PST albuterol-ipratopium 3-0.5 mg/3 mL inh soln (DuoNeb): = 3 mL, INH, QID, NEB AMP, 02/14/22 17:00:00 PST albuterol: 1.25 mg, INH, Q2H, PRN, Wheezing, NEB AMP, 02/14/22 12:54:00 PST aspirin: 81 mg, ORAL, DAILY, EC TAB, 02/14/22 12:52:00 PST atorvastatin: 10 mg, ORAL, QBedtime, TAB, 02/14/22 21:00:00 PST chlorthalidone 25 mg oral tablet: chlorthalidone 25 mg oral tablet, = 0.5 Tab, ORAL, DAILY, 02/15/2212:52:00 PST cloNIDine: 0.1 mg, ORAL, Q6H, PRN, Other (see comment), TAB, 02/14/22 12:54:00 PST docusate-senna 50 mg-8.6 mg oral tablet: = 1 Tab, ORAL, BID, TAB, 02/14/22 21:00:00 PST fenofibrate: 145 mg, ORAL, DAILY, TAB, 02/14/22 12:52:00 PST fluticasone 100 mcg inhalation powder: = 1 Puff, INH, DAILY, POWDER, 02/14/22 12:52:00 PST glucagon: 1 mg, SUBQ, As directed, PRN, Blood Glucose, INJ, 02/14/22 12:54:00 PST insulin lispro Correction Scale Med (Body wt 70-100kg): correction scale, SUBQ, AC&Bed, 02/14/2221:00:00 PST magnesium oxide: 400 mg, ORAL, BID, PRN, Magnesium Replacement, TAB, 02/14/22 12:51:00 PST magnesium sulfate 2 g in SWFI 50 mL: 2 gm = 50 mL, IVPB, [id number], PRN, Magnesium Replacement, IV SOLN, 02/14/22 12:51:00 PST, 50 mL/hr, 60 min potassium bicarbonate-citric acid: 20 mEq, ORAL, As directed, PRN, Potassium Replacement, EFFER TAB,02/14/22 12:51:00 PST potassium bicarbonate-citric acid: 40 mEq, ORAL, As directed, PRN, Potassium Replacement, EFFER TAB,02/14/22 12:51:00 PST potassium chloride 10 mEq in SWFI 100 mL: 10 mEq = 100 mL, IVPB, As directed, PRN, Potassium Replacement, IV SOLN, 02/14/22 12:51:00 PST, 100 mL/hr, 60 min sodium chloride 0.9% 1,000 mL: 1,000 mL, IV, Routine, 02/14/22 12:54:00 PST, 70 mL/hr, 14.3 hr, Order Weight 108, kg Documented Medications Documented A/Fish Oil 90284 u oral capsule: 0 Refill(s), Maintenance Aspir 81 oral enteric coated tablet: = 1 Tab, ORAL, DAILY, 0 Refill(s), Maintenance NovoLOG FlexPen: 0 Refill(s), Maintenance Semglee: 70 mg evenings, 0 Refill(s), Maintenance albuterol: 2.5 mg, INH, [id number], 0 Refill(s), Maintenance atorvastatin 10 mg oral tablet: = 1 Tab, ORAL, DAILY, 0 Refill(s), Maintenance chlorthalidone 25 mg oral tablet: = 1 Tab, ORAL, DAILY, 1/2 daily, 0 Refill(s), Maintenance fenofibrate 145 mg oral tablet: = 1 Tab, ORAL, DAILY, 0 Refill(s), Maintenance fluticasone 50 mcg/inh inhalation powder: 1 Puff, INH, BID, 0 Refill(s), Maintenance omeprazole 40 mg oral delayed release capsule: 1 Cap, ORAL, DAILY, 0 Refill(s), Maintenance Measurements VS/Measurements: Inpt. Vital signs (ST) Vital Signs (last 24 hrs) Last Charted Minimum Maximum Temp(??F) 98.0 (FEB 15 15:48 PST) 97.7 (FEB 15 00:40 PST) 98.8 (FEB 14 20:00 PST) Heart Rate 93 (FEB 15 15:48 PST) 71 (FEB 15 00:40 PST) 93 (FEB 14 20:00 PST) Resp Rate 16 (FEB 15 15:48 PST) 15 (FEB 15 11:21 PST) 20 (FEB 14 19:40 PST) SBP H 142 (FEB 15 15:48 PST) 132 (FEB 15 05:13 PST) H 154 (FEB 15 00:40 PST) DBP 76 (FEB 15 15:48 PST) 73 (FEB 14 20:00 PST) 81 (FEB 15 00:40 PST) SpO2 97 (FEB 15 15:48 PST) C 88 (FEB 15 09:00 PST) 97 (FEB 15 11:21 PST) OXYFLOW 2 (FEB 15 15:48 PST) 2 (FEB 14 19:40 PST) 2 (FEB 14 19:40 PST) OXYDELIVERY Nasal cannula Nasal Nasal (FEB 15 15:48 PST) (FEB 14 20:00 PST) (FEB 14 20:00 PST) . Respiratory: Arterial Blood Gas (ST) [...] 00:00:00) Eye: Extraocular movements are intact, Normal conjunctiva. HENT: Normocephalic. Neck: Supple, Non-tender, No carotid bruit, No jugular venous distention. Respiratory: Respirations are non-labored. Breath sounds: Prolonged expiratory phase. Cardiovascular: Regular rhythm, S1, S2. Gastrointestinal: Soft, Non-tender, Non-distended, Normal bowel sounds. Genitourinary: No costovertebral angle tenderness. Musculoskeletal: Normal range of motion, Normal strength. [...] PST Reason For Exam: Shortness of Breath REPORT:?? INDICATION: Shortness of BreathCOMPARISON: None. FINDINGS: The lungs are well expanded and clear, and the cardiac silhouette and pulmonary vessels appear normal. There is no pulmonary vascular redistribution, pleural effusion, or pneumothorax seen. Signed by: Sean Beverly MD on 02/14/2022 12:11 PM, ECG Interpretation: Recent result: Date Performed: 02/14/2022 12:20:27 PST Status: Signed Impression: SINUS RHYTHM RIGHT BUNDLE BRANCH BLOCK [120+ ms QRS DURATION, UPRIGHT V1, 40+ ms S IN I/aVL/V4/V5/V6] LEFT ANTERIOR FASCICULAR BLOCK [QRS AXIS <= -45, QR IN I, RS IN II] No ectopy EKG read at 1225 ABNORMAL ECG Electronic Signature: MD Denise, Oren Ny 02/15/2022 11:37:19 . Impression and Plan Acute hypoxic respiratory failure Influenza A tracheobronchitis DM2 Renal insufficiency acute on chronic Hypertension Hyperlipidemia Thrombocytopenia OSAS Obesity GERD Plan: Patient is responding to treatment Panculture Tamiflu IV Rocephin/Zithromax Bronchodilators/ICS/O2 supplementation On IV Solu-Medrol Continue home medications Respiratory isolation Accu-Cheks/SSI Nocturnal CPAP use compliant DVT/PUD prophylaxis Condition prognosis improving Consulting Physician: Discharge medications: Launch Meds List (Selected) Inpatient Medications Ordered Atrovent: 0.5 mg, INH, Q2H, PRN, Wheezing, NEB AMP, 02/14/22 12:54:00 PST Benadryl: 25 mg, IV PUSH, Q6H, PRN, Itching, INJ, 02/14/22 12:54:00 PST Benadryl: 25 mg, IV PUSH, QBedtime, PRN, Insomnia, INJ, 02/14/22 12:54:00 PST Cepacol Lozenges: = 1 Lozenge, ORAL, Q4H, PRN, Sore Throat, KATELYN, 02/15/22 17:53:00 PST Dextrose 50% Inj 50 mL: = 25 mL, IV PUSH, As directed, PRN, Blood Glucose, INJ, 02/14/22 12:54:00 PST Dextrose 50% Inj 50 mL: = 50 mL, IV PUSH, As directed, PRN, Blood Glucose, INJ, 02/14/22 12:54:00 PST Dulcolax Laxative: 10 mg, RECTAL, DAILY, PRN, Constipation, SUPP, 02/14/22 12:54:00 PST K-Phos Neutral: = 1 Tab, ORAL, As directed, PRN, Phosphorus Replacement, TAB, 02/14/22 12:52:00 PST Lovenox: 40 mg, SUBQ, DAILY, Indication = VTE Prophylaxis, INJ, 02/14/22 18:00:00 PST Protonix: 40 mg, ORAL, DAILY, EC TAB, 02/14/22 12:54:00 PST SOLU-Medrol: 40 mg, IV PUSH, Q6H, INJ, 02/14/22 18:00:00 PST Tamiflu: 75 mg, ORAL, BID, ORAL SUSP, 02/14/22 21:00:00 PST Tylenol: 650 mg, ORAL, Q6H, PRN, Other (see comment), TAB, 02/14/22 12:54:00 PST Tylenol: 650 mg, RECTAL, Q6H, PRN, Other (see comment), SUPP, 02/14/22 12:54:00 PST Zofran: 4 mg, IV PUSH, Q4H, PRN, Nausea/Vomiting, INJ, 02/14/22 12:54:00 PST albuterol-ipratopium 3-0.5 mg/3 mL inh soln (DuoNeb): = 3 mL, INH, QID, NEB AMP, 02/14/22 17:00:00 PST albuterol: 1.25 mg, INH, Q2H, PRN, Wheezing, NEB AMP, 02/14/22 12:54:00 PST aspirin: 81 mg, ORAL, DAILY, EC TAB, 02/14/22 12:52:00 PST atorvastatin: 10 mg, ORAL, QBedtime, TAB, 02/14/22 21:00:00 PST chlorthalidone 25 mg oral tablet: chlorthalidone 25 mg oral tablet, = 0.5 Tab, ORAL, DAILY, 02/15/2212:52:00 PST cloNIDine: 0.1 mg, ORAL, Q6H, PRN, Other (see comment), TAB, 02/14/22 12:54:00 PST docusate-senna 50 mg-8.6 mg oral tablet: = 1 Tab, ORAL, BID, TAB, 02/14/22 21:00:00 PST fenofibrate: 145 mg, ORAL, DAILY, TAB, 02/14/22 12:52:00 PST fluticasone 100 mcg inhalation powder: = 1 Puff, INH, DAILY, POWDER, 02/14/22 12:52:00 PST glucagon: 1 mg, SUBQ, As directed, PRN, Blood Glucose, INJ, 02/14/22 12:54:00 PST insulin lispro Correction Scale Med (Body wt 70-100kg): correction scale, SUBQ, AC&Bed, 02/14/2221:00:00 PST magnesium oxide: 400 mg, ORAL, BID, PRN, Magnesium Replacement, TAB, 02/14/22 12:51:00 PST magnesium sulfate 2 g in SWFI 50 mL: 2 gm = 50 mL, IVPB, [id number], PRN, Magnesium Replacement, IV SOLN, 02/14/22 12:51:00 PST, 50 mL/hr, 60 min potassium bicarbonate-citric acid: 20 mEq, ORAL, As directed, PRN, Potassium Replacement, EFFER TAB,02/14/22 12:51:00 PST potassium bicarbonate-citric acid: 40 mEq, ORAL, As directed, PRN, Potassium Replacement, EFFER TAB,02/14/22 12:51:00 PST potassium chloride 10 mEq in SWFI 100 mL: 10 mEq = 100 mL, IVPB, As directed, PRN, Potassium Replacement, IV SOLN, 02/14/22 12:51:00 PST, 100 mL/hr, 60 min sodium chloride 0.9% 1,000 mL: 1,000 mL, IV, Routine, 02/14/22 12:54:00 PST, 70 mL/hr, 14.3 hr, Order Weight 108, kg Documented Medications Documented A/Fish Oil 47827 u oral capsule: 0 Refill(s), Maintenance Aspir 81 oral enteric coated tablet: = 1 Tab, ORAL, DAILY, 0 Refill(s), Maintenance NovoLOG FlexPen: 0 Refill(s), Maintenance Semglee: 70 mg evenings, 0 Refill(s), Maintenance albuterol: 2.5 mg, INH, [id number], 0 Refill(s), Maintenance atorvastatin 10 mg oral tablet: = 1 Tab, ORAL, DAILY, 0 Refill(s), Maintenance chlorthalidone 25 mg oral tablet: = 1 Tab, ORAL, DAILY, 1/2 daily, 0 Refill(s), Maintenance fenofibrate 145 mg oral tablet: = 1 Tab, ORAL, DAILY, 0 Refill(s), Maintenance fluticasone 50 mcg/inh inhalation powder: 1 Puff, INH, BID, 0 Refill(s), Maintenance omeprazole 40 mg oral delayed release capsule: 1 Cap, ORAL, DAILY, 0 Refill(s), Maintenance. Electronically signed by: MD Ortiz Vijay Signed on: 15-Feb-2022 18:43 PST Hospitalist Progress Note MD White Rabin: PERFORM, SIGN, VERIFY Event Display: Hospitalist Progress Note Authored Date: Patient: ROGER FREDERICK Age: 76 years Legal Sex: Male : [...] PRN, Wheezing, NEB AMP, 02/14/22 12:54:00 PST Benadryl: 25 mg, IV PUSH, Q6H, PRN, Itching, INJ, 02/14/22 12:54:00 PST Benadryl: 25 mg, IV PUSH, QBedtime, PRN, Insomnia, INJ, 02/14/22 12:54:00 PST Cepacol Lozenges: = 1 Lozenge, ORAL, Q4H, PRN, Sore Throat, KATELYN, 02/15/22 17:53:00 PST Dextrose 50% Inj 50 mL: = 25 mL, IV PUSH, As directed, PRN, Blood Glucose, INJ, 02/14/22 12:54:00 PST Dextrose 50% Inj 50 mL: = 50 mL, IV PUSH, As directed, PRN, Blood Glucose, INJ, 02/14/22 12:54:00 PST Dulcolax Laxative: 10 mg, RECTAL, DAILY, PRN, Constipation, SUPP, 02/14/22 12:54:00 PST K-Phos Neutral: = 1 Tab, ORAL, As directed, PRN, Phosphorus Replacement, TAB, 02/14/22 12:52:00 PST Lovenox: 40 mg, SUBQ, DAILY, Indication = VTE Prophylaxis, INJ, 02/14/22 18:00:00 PST Protonix: 40 mg, ORAL, DAILY, EC TAB, 02/14/22 12:54:00 PST SOLU-Medrol: 40 mg, IV PUSH, Q6H, INJ, 02/14/22 18:00:00 PST Tamiflu: 75 mg, ORAL, BID, ORAL SUSP, 02/14/22 21:00:00 PST Tylenol: 650 mg, ORAL, Q6H, PRN, Other (see comment), TAB, 02/14/22 12:54:00 PST Tylenol: 650 mg, RECTAL, Q6H, PRN, Other (see comment), SUPP, 02/14/22 12:54:00 PST Zofran: 4 mg, IV PUSH, Q4H, PRN, Nausea/Vomiting, INJ, 02/14/22 12:54:00 PST albuterol-ipratopium 3-0.5 mg/3 mL inh soln (DuoNeb): = 3 mL, INH, QID, NEB AMP, 02/14/22 17:00:00 PST albuterol: 1.25 mg, INH, Q2H, PRN, Wheezing, NEB AMP, 02/14/22 12:54:00 PST aspirin: 81 mg, ORAL, DAILY, EC TAB, 02/14/22 12:52:00 PST atorvastatin: 10 mg, ORAL, QBedtime, TAB, 02/14/22 21:00:00 PST chlorthalidone 25 mg oral tablet: chlorthalidone 25 mg oral tablet, = 0.5 Tab, ORAL, DAILY, 02/15/2212:52:00 PST cloNIDine: 0.1 mg, ORAL, Q6H, PRN, Other (see comment), TAB, 02/14/22 12:54:00 PST docusate-senna 50 mg-8.6 mg oral tablet: = 1 Tab, ORAL, BID, TAB, 02/14/22 21:00:00 PST fenofibrate: 145 mg, ORAL, DAILY, TAB, 02/14/22 12:52:00 PST fluticasone 100 mcg inhalation powder: = 1 Puff, INH, DAILY, POWDER, 02/14/22 12:52:00 PST glucagon: 1 mg, SUBQ, As directed, PRN, Blood Glucose, INJ, 02/14/22 12:54:00 PST insulin lispro Correction Scale Med (Body wt 70-100kg): correction scale, SUBQ, AC&Bed, 02/14/2221:00:00 PST magnesium oxide: 400 mg, ORAL, BID, PRN, Magnesium Replacement, TAB, 02/14/22 12:51:00 PST magnesium sulfate 2 g in SWFI 50 mL: 2 gm = 50 mL, IVPB, [id number], PRN, Magnesium Replacement, IV SOLN, 02/14/22 12:51:00 PST, 50 mL/hr, 60 min potassium bicarbonate-citric acid: 20 mEq, ORAL, As directed, PRN, Potassium Replacement, EFFER TAB,02/14/22 12:51:00 PST potassium bicarbonate-citric acid: 40 mEq, ORAL, As directed, PRN, Potassium Replacement, EFFER TAB,02/14/22 12:51:00 PST potassium chloride 10 mEq in SWFI 100 mL: 10 mEq = 100 mL, IVPB, As directed, PRN, Potassium Replacement, IV SOLN, 02/14/22 12:51:00 PST, 100 mL/hr, 60 min sodium chloride 0.9% 1,000 mL: 1,000 mL, IV, Routine, 02/14/22 12:54:00 PST, 70 mL/hr, 14.3 hr, Order Weight 108, kg Documented Medications Documented A/Fish Oil 29021 u oral capsule: 0 Refill(s), Maintenance Aspir 81 oral enteric coated tablet: = 1 Tab, ORAL, DAILY, 0 Refill(s), Maintenance NovoLOG FlexPen: 0 Refill(s), Maintenance Semglee: 70 mg evenings, 0 Refill(s), Maintenance albuterol: 2.5 mg, INH, [id number], 0 Refill(s), Maintenance atorvastatin 10 mg oral tablet: = 1 Tab, ORAL, DAILY, 0 Refill(s), Maintenance chlorthalidone 25 mg oral tablet: = 1 Tab, ORAL, DAILY, 1/2 daily, 0 Refill(s), Maintenance fenofibrate 145 mg oral tablet: = 1 Tab, ORAL, DAILY, 0 Refill(s), Maintenance fluticasone 50 mcg/inh inhalation powder: 1 Puff, INH, BID, 0 Refill(s), Maintenance omeprazole 40 mg oral delayed release capsule: 1 Cap, ORAL, DAILY, 0 Refill(s), Maintenance, Medications (32) Active Scheduled: (12) albuterol-ipratrop 3-0.5 mg/3 mL Neb Soln 3 mL, INH, QID aspirin 81 mg EC Tab 81 mg 1 EC_Tab, ORAL, DAILY atorvastatin 10 mg Tab 10 mg 1 Tab, ORAL, QBedtime chlorthalidone 25 mg oral tablet 0.5 Tab, ORAL, DAILY docusate-senna 50-8.6 mg Tab 1 Tab, ORAL, BID enoxaparin 40 mg/ 0.4 mL Inj Syringe 40 mg 0.4 mL, SUBQ, DAILY Fenofibrate 145 mg Tab 145 mg 1 Tab, ORAL, DAILY fluticasone furoate 100 mcg/inh 1 Puff, INH, DAILY insulin lispro (Admelog) 100 units/mL, 3 mL MDV correction scale, SUBQ, AC&Bed methylPRED sod succ 40 mg/mL Inj 40 mg 1 mL, IV PUSH, Q6H oseltamivir 6 mg/mL Oral Liq 1 mL 75 mg 12.5 mL, ORAL, BID pantoprazole 40 mg EC Tab 40 mg 1 Tab, ORAL, DAILY Continuous: (1) sodium chloride 0.9% 1,000 mL 1,000 mL, IV, 70 mL/hr PRN: (19) acetaminophen 325 mg Tab 650 mg 2 ea, ORAL, Q6H acetaminophen 650 mg Supp 650 mg 1 Supp, RECTAL, Q6H albuterol 1.25 mg/3 mL (0.042%) Inh Soln 1.25 mg 3 mL, INH, Q2H benzocaine-cetylpyridinium topical 1 Lozenge, ORAL, Q4H bisacodyl 10 mg Supp 10 mg 1 Supp, RECTAL, DAILY cloNIDine 0.1 mg Tab 0.1 mg 1 Tab, ORAL, Q6H Dextrose 50% Inj 50 mL Syr 25 mL, IV PUSH, As directed Dextrose 50% Inj 50 mL Syr 50 mL, IV PUSH, As directed diphenhydrAMINE 50 mg/mL Inj 1 mL SDV [...] mg Tab 400 mg 1 Tab, ORAL, BID magnesium sulfate / SWFI 2 gm 50 mL, IVPB, [id number] ondansetron 2 mg/mL, 2 mL Inj 4 mg 2 mL, IV PUSH, Q4H potassium chloride 10 mEq 100 mL, IVPB, As directed Problem list: All Problems Current smoker / [id number] / Confirmed Ineffective breathing pattern / [id number] / Provisional Manage infection control / [id number] / Provisional Physical Examination Vital Signs 02/16/2022 10:25 PST Pulse Oximetry 94 % Pulse oximetry method Continuous Oxygen delivery Room air BP location Left arm 02/16/2022 08:47 PST Peripheral Pulse Rate 88 bpm Normal Pulse Oximetry 95 % Oxygen delivery Room air Oxygen %/FiO2 21 % Normal 02/16/2022 08:37 PST Peripheral Pulse Rate 88 bpm Normal Respiratory rate 20 br/min Normal Pulse Oximetry 95 % Oxygen %/FiO2 21 % Normal 02/16/2022 08:00 PST Temperature (F) 98.0 DegF Normal Peripheral Pulse Rate 80 bpm Normal Respiratory [...] 02/16/2022 05:43 PST Temperature (F) 97.4 DegF Normal Peripheral Pulse Rate 82 bpm Normal Respiratory rate 20 br/min Normal Systolic BP 153 mmHg HI Diastolic BP 91 mmHg HI Pulse Oximetry 98 % Pulse oximetry method Continuous Oxygen delivery Nasal cannula Temp site Oral BP position Lying BP location Left arm Blood Pressure Method Automatic Peripheral pulse site Non-invasive BP device 02/16/2022 00:53 PST Temperature (F) 97.5 DegF Normal Peripheral Pulse Rate 87 bpm Normal Respiratory [...] 02/15/2022 20:49 PST Temperature (F) 98.6 DegF Normal Peripheral Pulse Rate 96 bpm Normal Respiratory [...] 02/15/2022 20:28 PST Peripheral Pulse Rate 96 bpm Normal Respiratory rate 20 br/min Normal Pulse Oximetry 97 % Oxygen flow 2 L/min Peripheral pulse site Pulse oximetry device 02/15/2022 20:09 PST Peripheral Pulse Rate 91 bpm Normal Respiratory rate 22 br/min HI Pulse Oximetry 96 % Oxygen flow 2 L/min Peripheral pulse site Pulse oximetry device 02/15/2022 16:28 PST Peripheral Pulse Rate 84 bpm Normal Respiratory rate 18 br/min Normal 02/15/2022 16:18 PST Peripheral Pulse Rate 82 bpm Normal Respiratory rate 18 br/min Normal 02/15/2022 15:48 PST Temperature (F) 98.0 DegF Normal Peripheral Pulse Rate 93 bpm Normal Respiratory [...] 02/15/2022 11:39 PST Peripheral Pulse Rate 84 bpm Normal Respiratory rate 18 br/min Normal 02/15/2022 11:29 PST Peripheral Pulse Rate 82 bpm Normal Respiratory rate 18 br/min Normal Pulse Oximetry 95 % Oxygen delivery Nasal cannula Oxygen flow 2 L/min 02/15/2022 11:21 PST Temperature (F) 98.4 DegF Normal Peripheral Pulse Rate 87 bpm Normal Respiratory [...] arm 02/15/2022 08:00 PST Oxygen delivery Nasal cannula Oxygen flow 2 L/min 02/15/2022 07:50 PST Temperature (F) 97.9 DegF Normal Peripheral Pulse Rate 90 bpm Normal Respiratory [...] 02/15/2022 07:44 PST Peripheral Pulse Rate 82 bpm Normal Respiratory rate 18 br/min Normal 02/15/2022 07:35 PST Pulse Oximetry 95 % Oxygen delivery Room air 02/15/2022 07:34 PST Peripheral Pulse Rate 80 bpm Normal Respiratory rate 18 br/min Normal 02/15/2022 05:13 PST Temperature (F) 98 DegF Normal Peripheral Pulse Rate 76 bpm Normal Respiratory [...] 02/15/2022 00:40 PST Temperature (F) 97.7 DegF Normal Peripheral Pulse Rate 71 bpm Normal Respiratory rate 20 br/min Normal Systolic BP 154 mmHg HI Diastolic BP 81 mmHg Normal Pulse Oximetry 94 % Pulse oximetry method Continuous Oxygen delivery CPAP/NIPPV (Modified) Activity with SPO2 monitoring At rest Oxygen flow 2 L/min Temp site Oral BP position Lying BP location Right arm Peripheral pulse site Non-invasive BP device Vital Signs (last 24 hrs) Last Charted Minimum Maximum Temp(??F) 98.0 (FEB 16 08:00 PST) 97.4 (FEB 16 05:43 PST) 98.6 (FEB 15 20:49 PST) Heart Rate 88 (FEB 16 08:47 PST) 80 (FEB 16 08:00 PST) 96 (FEB 15 20:28 PST) Resp [...] 16 08:47 PST) 21 (FEB 16 08:37 PST) 21 (FEB 16 08:37 PST) OXYFLOW 2 (FEB 16 00:53 PST) 2 (FEB 15 10:59 PST) 2 (FEB 15 10:59 PST) OXYDELIVERY Room air Nasal Nasal (FEB 16 10:25 PST) (FEB 15 10:59 PST) (FEB 15 10:59 PST) Measurements from flowsheet : Measurements 02/16/2022 06:00 PST Weight (kg) 108.5 kg Weight measured method Bed scale 02/15/2022 06:00 PST Weight (kg) 109.9 kg Weight measured method Bed scale General: No acute distress. Neck: Supple. Respiratory: Breath sounds are equal. Cardiovascular: Normal rate, Regular rhythm, No murmur. Gastrointestinal: Soft, Non-tender, Non-distended. Genitourinary: No costovertebral angle tenderness. Musculoskeletal Normal range of motion. Neurologic: No focal deficits. Psychiatric: Cooperative. Review / Management Results review: Labs (Last four charted values) WBC 10.5 (FEB 16) 9.4 (FEB 15) 8.4 (FEB 14) Hgb L 11.7 (FEB 16) L 11.6 (FEB 15) 12.6 (FEB 14) Hct L 34.3 (FEB 16) 34.9 (FEB [...] 16) H 1.59 (FEB 15) H 1.52 (FEB 14) BUN H 34 (FEB 16) H 27 [...] daily Maintain BP control, as needed medication available #Hyperlipidemia Continue fenofibrate 145 mg daily #Type 2 diabetes mellitus Fingerstick blood glucose Insulin per sliding scale Consistent carbohydrate diet #Gastroesophageal reflux disease Continue Protonix 40 mg daily #Asthma Continue fluticasone 50 mcg inhalation 1 puff twice daily Maintain adequate oxygenation, O2 as needed #Obstructive sleep apnea Continue CPAP at night PUD/VTE prophylaxis, Protonix, Lovenox Prognosis: GUARDED and will depend to patient???s response to treatment DC home soon Electronically signed by: MD White Rabin Signed on: 16-Feb-2022 10:32 MD Jiang Rabin: PERFORM, SIGN, VERIFY Event Display: Hospitalist Progress Note Authored Date: Patient: ROGER FREDERICK Age: 76 years Legal Sex: Male : [...] PRN, Wheezing, NEB AMP, 02/14/22 12:54:00 PST Benadryl: 25 mg, IV PUSH, Q6H, PRN, Itching, INJ, 02/14/22 12:54:00 PST Benadryl: 25 mg, IV PUSH, QBedtime, PRN, Insomnia, INJ, 02/14/22 12:54:00 PST Dextrose 50% Inj 50 mL: = 25 mL, IV PUSH, As directed, PRN, Blood Glucose, INJ, 02/14/22 12:54:00 PST Dextrose 50% Inj 50 mL: = 50 mL, IV PUSH, As directed, PRN, Blood Glucose, INJ, 02/14/22 12:54:00 PST Dulcolax Laxative: 10 mg, RECTAL, DAILY, PRN, Constipation, SUPP, 02/14/22 12:54:00 PST K-Phos Neutral: = 1 Tab, ORAL, As directed, PRN, Phosphorus Replacement, TAB, 02/14/22 12:52:00 PST Lovenox: 40 mg, SUBQ, DAILY, Indication = VTE Prophylaxis, INJ, 02/14/22 18:00:00 PST Protonix: 40 mg, ORAL, DAILY, EC TAB, 02/14/22 12:54:00 PST SOLU-Medrol: 40 mg, IV PUSH, Q6H, INJ, 02/14/22 18:00:00 PST Tamiflu: 75 mg, ORAL, BID, ORAL SUSP, 02/14/22 21:00:00 PST Tylenol: 650 mg, ORAL, Q6H, PRN, Other (see comment), TAB, 02/14/22 12:54:00 PST Tylenol: 650 mg, RECTAL, Q6H, PRN, Other (see comment), SUPP, 02/14/22 12:54:00 PST Zofran: 4 mg, IV PUSH, Q4H, PRN, Nausea/Vomiting, INJ, 02/14/22 12:54:00 PST albuterol-ipratopium 3-0.5 mg/3 mL inh soln (DuoNeb): = 3 mL, INH, QID, NEB AMP, 02/14/22 17:00:00 PST albuterol: 1.25 mg, INH, Q2H, PRN, Wheezing, NEB AMP, 02/14/22 12:54:00 PST aspirin: 81 mg, ORAL, DAILY, EC TAB, 02/14/22 12:52:00 PST atorvastatin: 10 mg, ORAL, QBedtime, TAB, 02/14/22 21:00:00 PST chlorthalidone 25 mg oral tablet: chlorthalidone 25 mg oral tablet, = 0.5 Tab, ORAL, DAILY, 02/15/2212:52:00 PST cloNIDine: 0.1 mg, ORAL, Q6H, PRN, Other (see comment), TAB, 02/14/22 12:54:00 PST docusate-senna 50 mg-8.6 mg oral tablet: = 1 Tab, ORAL, BID, TAB, 02/14/22 21:00:00 PST fenofibrate: 145 mg, ORAL, DAILY, TAB, 02/14/22 12:52:00 PST fluticasone 100 mcg inhalation powder: = 1 Puff, INH, DAILY, POWDER, 02/14/22 12:52:00 PST glucagon: 1 mg, SUBQ, As directed, PRN, Blood Glucose, INJ, 02/14/22 12:54:00 PST insulin lispro Correction Scale Med (Body wt 70-100kg): correction scale, SUBQ, AC&Bed, 02/14/2221:00:00 PST magnesium oxide: 400 mg, ORAL, BID, PRN, Magnesium Replacement, TAB, 02/14/22 12:51:00 PST magnesium sulfate 2 g in SWFI 50 mL: 2 gm = 50 mL, IVPB, [id number], PRN, Magnesium Replacement, IV SOLN, 02/14/22 12:51:00 PST, 50 mL/hr, 60 min potassium bicarbonate-citric acid: 20 mEq, ORAL, As directed, PRN, Potassium Replacement, EFFER TAB,02/14/22 12:51:00 PST potassium bicarbonate-citric acid: 40 mEq, ORAL, As directed, PRN, Potassium Replacement, EFFER TAB,02/14/22 12:51:00 PST potassium chloride 10 mEq in SWFI 100 mL: 10 mEq = 100 mL, IVPB, As directed, PRN, Potassium Replacement, IV SOLN, 02/14/22 12:51:00 PST, 100 mL/hr, 60 min sodium chloride 0.9% 1,000 mL: 1,000 mL, IV, Routine, 02/14/22 12:54:00 PST, 70 mL/hr, 14.3 hr, Order Weight 108, kg Documented Medications Documented A/Fish Oil 90024 u oral capsule: 0 Refill(s), Maintenance Aspir 81 oral enteric coated tablet: = 1 Tab, ORAL, DAILY, 0 Refill(s), Maintenance NovoLOG FlexPen: 0 Refill(s), Maintenance Semglee: 70 mg evenings, 0 Refill(s), Maintenance albuterol: 2.5 mg, INH, [id number], 0 Refill(s), Maintenance atorvastatin 10 mg oral tablet: = 1 Tab, ORAL, DAILY, 0 Refill(s), Maintenance chlorthalidone 25 mg oral tablet: = 1 Tab, ORAL, DAILY, 1/2 daily, 0 Refill(s), Maintenance fenofibrate 145 mg oral tablet: = 1 Tab, ORAL, DAILY, 0 Refill(s), Maintenance fluticasone 50 mcg/inh inhalation powder: 1 Puff, INH, BID, 0 Refill(s), Maintenance omeprazole 40 mg oral delayed release capsule: 1 Cap, ORAL, DAILY, 0 Refill(s), Maintenance, Medications (31) Active Scheduled: (12) albuterol-ipratrop 3-0.5 mg/3 mL Neb Soln 3 mL, INH, QID aspirin 81 mg EC Tab 81 mg 1 EC_Tab, ORAL, DAILY atorvastatin 10 mg Tab 10 mg 1 Tab, ORAL, QBedtime chlorthalidone 25 mg oral tablet 0.5 Tab, ORAL, DAILY docusate-senna 50-8.6 mg Tab 1 Tab, ORAL, BID enoxaparin 40 mg/ 0.4 mL Inj Syringe 40 mg 0.4 mL, SUBQ, DAILY Fenofibrate 145 mg Tab 145 mg 1 Tab, ORAL, DAILY fluticasone furoate 100 mcg/inh 1 Puff, INH, DAILY insulin lispro (Admelog) 100 units/mL, 3 mL MDV correction scale, SUBQ, AC&Bed methylPRED sod succ 40 mg/mL Inj 40 mg 1 mL, IV PUSH, Q6H oseltamivir 6 mg/mL Oral Liq 1 mL 75 mg 12.5 mL, ORAL, BID pantoprazole 40 mg EC Tab 40 mg 1 Tab, ORAL, DAILY Continuous: (1) sodium chloride 0.9% 1,000 mL 1,000 mL, IV, 70 mL/hr PRN: (18) acetaminophen 325 mg Tab 650 [...] mL Syr 25 mL, IV PUSH, As directed Dextrose 50% Inj 50 mL Syr 50 mL, IV PUSH, As directed diphenhydrAMINE 50 mg/mL Inj 1 mL SDV [...] mg Tab 400 mg 1 Tab, ORAL, BID magnesium sulfate / SWFI 2 gm 50 mL, IVPB, [id number] ondansetron 2 mg/mL, 2 mL Inj 4 mg 2 mL, IV PUSH, Q4H potassium chloride 10 mEq 100 mL, IVPB, As directed Problem list: All Problems Current smoker / [id number] / Confirmed Manage infection control / [id number] / Provisional Physical Examination Vital Signs 02/15/2022 08:00 PST Oxygen delivery Nasal cannula Oxygen flow 2 L/min 02/15/2022 07:50 PST Temperature (F) 97.9 DegF Normal Peripheral Pulse Rate 90 bpm Normal Respiratory [...] 02/15/2022 07:44 PST Peripheral Pulse Rate 82 bpm Normal Respiratory rate 18 br/min Normal 02/15/2022 07:35 PST Pulse Oximetry 95 % Oxygen delivery Room air 02/15/2022 07:34 PST Peripheral Pulse Rate 80 bpm Normal Respiratory rate 18 br/min Normal 02/15/2022 05:13 PST Temperature (F) 98 DegF Normal Peripheral Pulse Rate 76 bpm Normal Respiratory [...] 02/15/2022 00:40 PST Temperature (F) 97.7 DegF Normal Peripheral Pulse Rate 71 bpm Normal Respiratory [...] device 02/14/2022 20:01 PST Oxygen delivery Nasal cannula Oxygen flow 2 L/min 02/14/2022 20:00 PST Temperature (F) 98.8 DegF Normal Peripheral Pulse Rate 93 bpm Normal Respiratory [...] 02/14/2022 19:40 PST Peripheral Pulse Rate 87 bpm Normal Respiratory rate 20 br/min Normal Oxygen flow 2 L/min Peripheral pulse site Non-invasive BP device 02/14/2022 17:40 PST Respiratory rate 20 br/min Normal Pulse Oximetry 97 % Oxygen delivery Nasal cannula Oxygen flow 2 L/min 02/14/2022 17:37 PST Temperature (F) 98.8 DegF Normal Peripheral Pulse Rate 89 bpm Normal Respiratory [...] 02/14/2022 14:42 PST Temperature (F) 99.3 DegF Normal 02/14/2022 14:00 PST Heart Rate Monitored 100 bpm HI Respiratory rate 25 br/min HI Pulse [...] arm 02/14/2022 13:30 PST Oxygen delivery Nasal cannula Oxygen flow 2 L/min 02/14/2022 13:21 PST Peripheral Pulse Rate 98 bpm Normal Respiratory rate 20 br/min Normal Pulse Oximetry 99 % Oxygen flow 2 L/min Oxygen %/FiO2 28 % Normal Peripheral pulse site Non-invasive BP device 02/14/2022 13:07 PST Peripheral Pulse Rate 97 bpm Normal Respiratory rate 16 br/min Normal Pulse [...] Pulse oximetry device Vital Signs (last 24 hrs) Last Charted Minimum Maximum Temp(??F) 97.9 (FEB 15 07:50 PST) 97.7 (FEB 15 00:40 PST) H 101.6 (FEB 14 11:21 PST) Heart Rate 90 (FEB 15 07:50 PST) 71 (FEB 15 00:40 PST) H 100 (FEB 14 14:00 PST) Resp Rate 17 (FEB 15 07:50 PST) 15 (FEB 14 14:55 PST) H 27 (FEB 14 16:00 PST) SBP H 145 (FEB 15 07:50 PST) 126 (FEB 14 17:37 PST) H 155 (FEB 14 11:21 PST) DBP 77 (FEB 15 07:50 PST) L 58 (FEB 14 13:54 PST) 81 (FEB 15 00:40 PST) SpO2 96 (FEB 15 07:50 PST) 90 (FEB 14 11:21 PST) 99 (FEB 14 13:21 PST) OXYFIO2 28 (FEB 14 13:21 PST) 28 (FEB 14 13:07 PST) 28 (FEB 14 13:07 PST) OXYFLOW 2 (FEB 15 08:00 PST) 2 (FEB 14 11:23 PST) 2 (FEB 14 11:23 PST) OXYDELIVERY Nasal cannula Room a Room a (FEB 15 08:00 PST) (FEB 14 11:21 PST) (FEB 14 11:21 PST) Measurements from flowsheet : Measurements 02/15/2022 [...] Regular rhythm, No murmur. Gastrointestinal: Soft, Non-tender, Non-distended. Genitourinary: No costovertebral angle tenderness. Musculoskeletal Normal range of motion. Neurologic: No [...] daily Maintain BP control, as needed medication available #Hyperlipidemia Continue fenofibrate 145 mg daily #Type 2 diabetes mellitus Fingerstick blood glucose Insulin per sliding scale Consistent carbohydrate diet #Gastroesophageal reflux disease Continue Protonix 40 mg daily #Asthma Continue fluticasone 50 mcg inhalation 1 puff twice daily Maintain adequate oxygenation, O2 as needed #Obstructive sleep apnea Continue CPAP at night PUD/VTE prophylaxis, Protonix, Lovenox Prognosis: GUARDED and will depend to patient???s response to treatment Electronically signed by: MD White Rabin Signed on: 15-Feb-2022 10:41 PST Portable XR Chest AP single view MD Beverly Eric G: VERIFY, VERIFY Event Display: Report INDICATION: Shortness of Breath COMPARISON: None. FINDINGS: The lungs are well expanded and clear, and the cardiac silhouette and pulmonary vessels appear normal. There is no pulmonary vascular redistribution, pleural effusion, or pneumothorax seen. Signed by: Sean Beverly MD on 02/14/2022 12:11 PM Final study MD Walker Alan L: SIGN, VERIFY Event Display: ECG 12 Lead - CV (ED) Authored Date: Patient Care team information Care Team PersonnelName: MD RAYNE Position: Physician Optimized Member Role: Primary Care Physician Name: MD Jose David, [facility] Position: Hospitalist Member Role: Admitting Physician Address: Address: [place] [id number] [place] [address]- [place]
--- OUTSIDE RECORDS SUMMARY | 2022-02-21 09:19 | XMS_ITS | Encounter Summary ---
:1945 Author Organization [facility] Address [address] [place] [address] Care Team Providers Name Role Phone Unavailable Primary Care Provider Unavailable Reason for Referral Outpatient (Routine) - Closed Specialty Diagnoses / Procedures Referred By Contact Refer red To Contact Neurology Diagnoses Benign Neoplasm Of Meninges Unspecified (HCC) Ihsan Irvin M.D. [facility] [address] [place] [address] Referral ID Status Reason Start Date Expiration Date Visits Requ ested Visits Authorized [id number] Closed 06/09/2021 06/09/2022 1 1 Encounter Details Date Type Department Care Team Description 06/09/2021 [facility] Shane Irvin Neoplasm Of AND CLINICS Ihsan Ny M.D. Meninges Unspecified [address] [facility] [address] [facility] (HCC) (Primary Dx) [place] [address] [place], [place] [phone] Social History Tobacco Use Types Packs/Day Years Used Date Smoking Tobacco: Never Assessed Alcohol Habits Answer Date Recorded How often [...] or relatives? How often do you attend judaism or More than 4 times per year 06/16/2021 [employer] services? Do you belong to any clubs or Yes 06/16/2021 organizations such as judaism groups, unions, fraternal or athletic groups, or [...] place to sleep or slept in a residential (including now)? 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
--- OUTSIDE RECORDS SUMMARY | 2022-02-21 09:19 | XMS_ITS | Encounter Summary ---
:1945 Author Organization [facility] Address [address] [place] [address] Care Team Providers Name Role Phone Unavailable Primary Care Provider Unavailable Reason for Visit Outpatient (Routine) - Closed Specialty Diagnoses / Procedures Referred By Contact Refer red To Contact Neurology Diagnoses Benign Neoplasm Of Meninges Unspecified (HCC) Ihsan Irvin M.D. [facility] [address] [place] [address] Referral ID Status Reason Start Date Expiration Date Visits Requ ested Visits Authorized [id number] Closed 06/09/2021 06/09/2022 1 1 Encounter Details Date Type Department Care Team Description 06/16/2021 Comprehensive Visit Department of Sean Garcia Neoplasm Of Neurologic Surgery Paul Mccall Meninges in [address] Unspecified (HCC) [place], [place] [address] [place] [id number] [place], [place] [phone] (Work) [phone] Social History Tobacco Use Types Packs/Day Years [...] or relatives? How often do you attend yarsanism or More than 4 times per year 06/16/2021 protestant services? Do you belong to any clubs or Yes 06/16/2021 organizations such as yarsanism groups, unions, fraternal or athletic groups, or [...] PM CDT documented as of this encounter Last Filed Vital Signs Vital Sign Reading [...] Mass Index 36.33 06/16/2021 3:14 PM CDT documented in this encounter H&P Notes Sean Garcia M.D. - 06/16/2021 2:30 PM CDT Images from the original note were not included. 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 documented in this encounter Plan of Treatment Not on filedocumented as of this encounter Visit Diagnoses Diagnosis Benign Neoplasm Of Meninges Unspecified (HCC) documented in this encounter
--- OUTSIDE RECORDS SUMMARY | 2022-02-21 09:19 | XMS_ITS | Encounter Summary ---
:1945 Author Organization [facility] Address [address] [place] [address] Care Team Providers Name Role Phone Unavailable Primary Care Provider Unavailable Encounter Details Date Type Department Care Team Description 09/15/2021 Clinical Communication Visit Review in [place], [place] [address] [place] [address] Social History Tobacco Use Types Packs/Day Years [...] or relatives? How often do you attend hoahaoism or More than 4 times per year 06/16/2021 synagogue services? Do you belong to any clubs or Yes 06/16/2021 organizations such as hoahaoism groups, unions, fraternal or athletic groups, or [...] place to sleep or slept in a fci (including now)? Education Answer Date Recorded What [...]
[2022-02-21 10:37] LABS: Chloride* 102 mmol/L (96-114); Potassium* 4.2 mmol/L (3.6-5.1); Sodium* 139 mmol/L (135-149)
[2022-02-21 10:40] LABS: Blood Urea Nitrogen* 25 mg/dL (7-30); Calcium* 9.2 mg/dL (8.4-10.6); Carbon Dioxide* 27 mmol/L (20-32); Creatinine* 1.3 mg/dL (0.5-1.5); Estimated Glomerular Filt Rate 57 ml/min; Glucose* 154 mg/dL (60-115)
== END 2022-02-21 08:52 | disposition home or self-care (01) ==
LOC: NFLDREF 09:17
PROVIDERS: PCP Family Medicine; Visit Provider Family Medicine
DX: I10 Essential (primary) hypertension (principal)
CPT/HCPCS: 80048

== ENCOUNTER 2022-03-30 07:51 | Outpatient (CLI) | payer BC, SELFPAY ==
--- NOTE | 2022-03-30 08:00 | CRLHL7_ITS ---
For Patients: As a result of the Century Cures Act, medical imaging exams and procedure reports are released immediately into your electronic medical record. You may view this report before your referring provider. If you have questions, please contact your health care provider. Indication: PLEURAL THICKNESS, PROLONGED COUGH (3+ MONTHS) Technique: Post contrast CT chest. 75 cc Isovue 370 intravenous contrast. Please note that all CT scans at this facility use dose modulation, iterative reconstruction, and/or weight-based dosing when appropriate to reduce radiation dose to as low as reasonably achievable. Comparison: Chest x-ray 03/24/2022, 06/05/2019 Findings: Dependent atelectasis noted in both lower lobes. No pleural effusion or pulmonary edema. No pneumothorax. No infiltrate or suspicious pulmonary nodule. Fatty liver incidentally noted. Upper abdomen otherwise normal. Mild atherosclerotic disease in the aorta with moderately severe calcifications in the LAD. No mediastinal, hilar or axillary adenopathy. 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 Discogenic spurring lower thoracic spine. No fracture. There is extrapleural fat about the lateral hemithorax bilaterally, right greater than left, measuring up to 9 millimeters, accounting for the radiographic finding. This has developed since 06/05/2019. Subcentimeter cyst right thyroid lobe. 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 No evidence of mesothelioma or pleural effusion. Dependent atelectasis both lower lobes. No adenopathy. Dense calcifications in the LAD. Please note that all CT scans at this facility use dose modulation, iterative reconstruction, and/or weight-based dosing when appropriate to reduce radiation dose to as low as reasonably achievable. Dictated by Bryan Sanderson MD @ 03/30/2022 9:41:49 AM (Electronically Signed)
[2022-03-30 08:29] LABS: Creatinine* 1.4 mg/dL (0.5-1.5); Estimated Glomerular Filt Rate 52 ml/min
== END 2022-03-30 07:52 | disposition home or self-care (01) ==
LOC: CT 07:54
PROVIDERS: PCP Family Medicine; Visit Provider Family Medicine
DX: J92.9 Pleural plaque without asbestos (principal); J98.11 Atelectasis; R05.9 Cough, unspecified
CPT/HCPCS: 36415; 71260; 82565; Q9967

== ENCOUNTER 2023-01-10 08:08 | Outpatient (CLI) | payer BC, SELFPAY | END 2023-01-10 08:09 | disposition home or self-care (01) | LOC: NFLDREF 01-13 06:46 | PROVIDERS: PCP Family Medicine; Referring Provider Family Medicine; Visit Provider Family Medicine | DX: Z00.00 Encounter for general adult medical examination without abnormal findings (principal); E11.9 Type 2 diabetes mellitus without complications; E78.5 Hyperlipidemia, unspecified; I10 Essential (primary) hypertension; E78.1 Pure hyperglyceridemia | CPT/HCPCS: 80053; 80061; 82043; 82570 ==

== ENCOUNTER 2023-03-22 10:10 | Outpatient (CLI) | payer BC, SELFPAY ==
--- OUTSIDE RECORDS SUMMARY | 2023-03-22 10:21 | XMS_ITS | Continuity of Care Document ---
Author Name [facility] Organization [facility] Care Team Providers Care Call Person Name Role Phone [facility] Unavailable Unavailable Problems Problem Status Onset Date Classification Date Reported Comments Source Influenza due to other identified influe Active 02/14/2022 [facility] Acute respiratory failure with hypoxia Active 02/14/2022 [facility] Shortness of breath Active [facility] Medications Medication Details Route Status Patient Instructions Ordering Provider Order Date Source Tamiflu 75 mg oral capsule = 1 Cap, ORAL, BID, X 5 Day(s), # 10 Cap, 0 Refill(s), Acute, Pharmacy: [id number], 175.24, cm, 02/14/22 17:56:00 PST, Height/Length (cm), 108, kg, 02/14/22 17:56:00 PST, Dose calculation weight (kg) Active 60 [facility] NovoLOG FlexPen 0 Refill(s), Maintenance Active 60 [facility] Semglee 70 mg evenings, 0 Refill(s), Maintenance Active 60 [facility] chlorthalidone 25 mg oral tablet = 1 Tab, ORAL, DAILY, 1/2 daily, 0 Refill(s), Maintenance Active 60 [facility] omeprazole 40 mg oral delayed release capsule 1 Cap, ORAL, DAILY, 0 Refill(s), Maintenance Active 60 [facility] fluticasone 50 mcg/inh inhalation powder 1 Puff, INH, BID, 0 Refill(s), Maintenance Active 60 [facility] fenofibrate 145 mg oral tablet = 1 Tab, ORAL, DAILY, 0 Refill(s), Maintenance Active 60 [facility] A/Fish Oil 93430 u oral capsule 0 Refill(s), Maintenance Active 60 [facility] albuterol 2.5 mg, INH, [id number], 0 Refill(s), Maintenance Active 60 [facility] Aspir 81 oral enteric coated tablet = 1 Tab, ORAL, DAILY, 0 Refill(s), Maintenance Active 60 [facility] atorvastatin 10 mg oral tablet = 1 Tab, ORAL, DAILY, 0 Refill(s), Maintenance Active 60 [facility] Results Order Name Results Value Reference Range Date Interpretation Comments Source AutoDiff* Auto Neutrophil Percent 90.5 % 49.4 - 72.6 02/16 H [facility] AutoDiff* Auto Neutrophil Absolute 9.5 K/uL 2.0 - 6.4 02/16 H [facility] AutoDiff* Auto Lymphocyte Percent 4.8 % 18.0 - 40.0 02/16 L [facility] AutoDiff* Auto Lymphocyte Absolute 0.5 K/uL 1.5 - 3.0 02/16 [facility] AutoDiff* Auto Monocyte Percent 4.7 % 4.9 - 10.1 02/16 [facility] AutoDiff* Auto Monocyte Absolute 0.5 K/uL 0.3 - 0.8 02/16 [facility] AutoDiff* Auto Eosinophil Percent 0.0 % 0.0 - 5.0 02/16 [facility] AutoDiff* Auto Eosinophil Absolute 0.0 K/uL 0.0 - 0.4 02/16 [facility] AutoDiff* Auto Basophil Percent 0.0 % 0.2 - 1.2 02/16 [facility] AutoDiff* Auto Basophil Absolute 0.0 K/uL 0.0 - 0.1 02/16 [facility] AutoDiff* Sex assigned at Male 02/16 [facility] CBC WBC 10.5 K/uL 3.7 - 10.5 02/16 [facility] CBC RBC 3.90 M/uL 3.81 - 5.87 02/16 NA [facility] CBC HGB 11.7 g/dL 12.0 - 17.9 02/16 L [facility] CBC HCT 34.3 % 34.4 - 50.2 02/16 L [facility] CBC MCV 88.0 fL 80.0 - 99.8 02/16 NA [facility] CBC MCH 29.9 pg 26.7 - 34.0 02/16 NA [facility] CBC MCHC 33.9 g/dL 31.0 - 37.0 02/16 NA [facility] CBC RDW 15.5 % 12.0 - 15.8 02/16 NA [facility] CBC PLT 146 K/uL 139 - 422 02/16 NA [facility] CBC MPV 9.00 fL 6.84 - 10.28 02/16 NA [facility] CBC Sex assigned at Male 02/16 NA [facility] CMP Sodium Level 132 MMOL/L 135 - 145 02/16 L [facility] CMP Potassium Level 4.1 MMOL/L 3.5 - 5.0 02/16 NA [facility] CMP Chloride Level 101 MMOL/L 101 - 111 02/16 NA [facility] CMP CO2/Carbon Dioxide 22 MMOL/L 24 - 32 02/16 L [facility] CMP Anion Gap 9.0 5.0 - 15.0 02/16 NA [facility] CMP Glucose, Random 316 MG/DL - <=200 02/16 H [facility] CMP BUN 34 MG/DL 8 - 20 02/16 H [facility] CMP Creatinine 1.39 MG/DL 0.60 - 1.30 02/16 H [facility] CMP BUN/Creat Ratio 24.5 12.0 - 20.0 02/16 H [facility] CMP Osmolality, Calculated 284 mOsm/L 02/16 [facility] Calcium Level 8.6 MG/DL 8.4 - 10.2 02/16 [facility] Total Protein 6.6 g/dL 6.4 - 8.3 02/16 [facility] Albumin Level 3.5 g/dL 3.2 - 5.5 02/16 [facility] Globulin Level 3.1 g/dL 1.5 - 3.5 02/16 NA [facility] A/G Ratio 1.1 1.1 - 2.2 02/16 NA [facility] ALP 35 IU/L 30 - 115 02/16 [facility] ALT 40 IU/L 5 - 36 02/16 H [facility] AST 50 IU/L 10 - 42 02/16 H [facility] Bilirubin, Total 0.6 MG/DL 0.2 - 1.2 02/16 [facility] GFR - Non 53 mL/min/1.7 3m2 >=61 02/16 L Units for estimated GFR are mL/min/1.73 square metersInterpr etive note for GFR estimates: [...] 18 or greater, not for pediatric patients. [facility] GFR - 64 mL/min/1.7 3m2 >=61 02/16 [facility] Sex assigned at Male 02/16 NA [facility] Mg Magnesium Level 2.2 MG/DL 1.7 - 2.8 02/16 NA [facility] Mg Sex assigned at Male 02/16 NA [facility] Phos Phosphorus Level 2.8 MG/DL 2.5 - 4.5 02/16 NA [facility] Phos Sex assigned at Male 02/16 NA [facility] AutoDiff* Auto Neutrophil Percent 89.9 % 49.4 - 72.6 02/15 H [facility] AutoDiff* Auto Neutrophil Absolute 8.5 K/uL 2.0 - 6.4 02/15 H [facility] AutoDiff* Auto Lymphocyte Percent 5.1 % 18.0 - 40.0 02/15 L [facility] AutoDiff* Auto Lymphocyte Absolute 0.5 K/uL 1.5 - 3.0 02/15 L [facility] AutoDiff* Auto Monocyte Percent 5.0 % 4.9 - 10.1 02/15 NA [facility] AutoDiff* Auto Monocyte Absolute 0.5 K/uL 0.3 - 0.8 02/15 NA [facility] AutoDiff* Auto Eosinophil Percent 0.0 % 0.0 - 5.0 02/15 NA [facility] AutoDiff* Auto Eosinophil Absolute 0.0 K/uL 0.0 - 0.4 02/15 NA [facility] AutoDiff* Auto Basophil Percent 0.0 % 0.2 - 1.2 02/15 L [facility] AutoDiff* Auto Basophil Absolute 0.0 K/uL 0.0 - 0.1 02/15 NA [facility] AutoDiff* Sex assigned at Male 02/15 NA [facility] CBC WBC 9.4 K/uL 3.7 - 10.5 02/15 NA [facility] CBC RBC 3.91 M/uL 3.81 - 5.87 02/15 NA [facility] CBC HGB 11.6 g/dL 12.0 - 17.9 02/15 L [facility] CBC HCT 34.9 % 34.4 - 50.2 02/15 NA [facility] CBC MCV 89.4 fL 80.0 - 99.8 02/15 NA [facility] CBC MCH 29.6 pg 26.7 - 34.0 02/15 NA [facility] CBC MCHC 33.2 g/dL 31.0 - 37.0 02/15 NA [facility] CBC RDW 15.5 % 12.0 - 15.8 02/15 NA [facility] CBC PLT 123 K/uL 139 - 422 02/15 L [facility] CBC MPV 9.30 fL 6.84 - 10.28 02/15 NA [facility] CBC Sex assigned at Male 02/15 NA [facility] CMP Sodium Level 136 MMOL/L 135 - 145 02/15 NA [facility] CMP Potassium Level 4.5 MMOL/L 3.5 - 5.0 02/15 NA [facility] CMP Chloride Level 104 MMOL/L 101 - 111 02/15 NA [facility] CMP CO2/Carbon Dioxide 24 MMOL/L 24 - 32 02/15 NA [facility] CMP Anion Gap 8.0 5.0 - 15.0 02/15 NA [facility] CMP Glucose, Random 302 MG/DL - <=200 02/15 H [facility] CMP BUN 27 MG/DL 8 - 20 02/15 H [facility] CMP Creatinine 1.59 MG/DL 0.60 - 1.30 02/15 H [facility] CMP BUN/Creat Ratio 17.0 12.0 - 20.0 02/15 [facility] CMP Osmolality, Calculated 288 mOsm/L 02/15 NA [facility] CMP Calcium Level 8.7 MG/DL 8.4 - 10.2 02/15 [facility] CMP Total Protein 6.6 g/dL 6.4 - 8.3 02/15 [facility] CMP Albumin Level 3.6 g/dL 3.2 - 5.5 02/15 NA [facility] CMP Globulin Level 3.0 g/dL 1.5 - 3.5 02/15 NA [facility] CMP A/G Ratio 1.2 1.1 - 2.2 02/15 NA [facility] CMP ALP 36 IU/L 30 - 115 02/15 NA [facility] CMP ALT 44 IU/L 5 - 36 02/15 H [facility] CMP AST 58 IU/L 10 - 42 02/15 H [facility] CMP Bilirubin, Total 0.5 MG/DL 0.2 - 1.2 02/15 [facility] GFR - Non 45 mL/min/1.7 3m2 >=61 02/15 L Units for estimated GFR are mL/min/1.73 square metersInterpr etive note for GFR estimates: [...] 18 or greater, not for pediatric patients. [facility] CMP Sex assigned at Male 02/15 [facility] CMP GFR - 55 mL/min/1.7 3m2 >=61 02/15 L [facility] Mg Magnesium Level 2.0 MG/DL 1.7 - 2.8 02/15 NA [facility] Mg Sex assigned at Male 02/15 NA [facility] Phos Phosphorus Level 2.4 MG/DL 2.5 - 4.5 02/15 L [facility] Phos Sex assigned at Male 02/15 NA [facility] Lactic Lactic Acid Level 2.3 MMOL/L 0.5 - 2.2 02/15 H [facility] Lactic Sex assigned at Male 02/15 NA [facility] Lactic Lactic Acid Level 2.8 MMOL/L 0.5 - 2.2 02/14 H [facility] Lactic Sex assigned at Male 02/14 NA [facility] POC G3+ Art ABG - pH 7.441 7.350 - 7.450 02/14 NA Device Code: 60 iSTAT EDFacility: 0060Location: 60 ERSerial Number: [id number] Code: [id number] rator Name: Carroll TerrellTiesha e Lot: [id number] [facility] POC G3+ Art ABG - pO2 71 mmHg 80 - 105 02/14 L [facility] POC G3+ Art ABG - pCO2 33 mmHg 35 - 45 02/14 L [facility] POC G3+ Art ABG - HCO3 22.4 MEQ/L 22.0 - 26.0 02/14 NA [facility] POC G3+ Art ABG - TCO2 23 MEQ/L 23 - 27 02/14 NA [facility] POC G3+ Art ABG - BE -2.0 MEQ/L -2.0 - 3.0 02/14 NA [facility] POC G3+ Art ABG - O2 Sat 95.0 % 95.0 - 99.0 02/14 NA [facility] POC G3+ Art BG - Modified Juan Test PASS 02/14 NA [facility] POC G3+ Art BG - Site RRAD 02/14 NA [facility] POC G3+ Art FIO2 28 % 02/14 NA [facility] POC G3+ Art BG - O2 Device NC 02/14 NA [facility] POC G3+ Art BG - Oxygen Flow 2.0 L/min 02/14 NA [facility] POC G3+ Art BG - Patient Rate 22 br/min 02/14 NA [facility] POC G3+ Art BG - Pulse Oximetry 94 % 02/14 NA [facility] POC G3+ Art Sex assigned at Male 02/14 NA [facility] CRP CRP C-Reactive Protein 12.60 MG/DL 0.00 - 0.90 02/14 H [facility] CRP Sex assigned at Male 02/14 [facility] DDimerQnt D-Dimer, Qnt 0.45 ZZ - <=0.50 02/14 NA Increases in D-dimer concentration observed with thromboemboli c events can be variable due [...] 65 0.65mg/L FEU 70 0.70mg/L FEU Etc. [facility] DDimerQnt Sex assigned at Male 02/14 [facility] PCT Procalcitoni n Level 0.47 NG/ML - <=0.50 02/14 NA [facility] PCT Sex assigned at Male 02/14 NA [facility] AutoDiff* Auto Neutrophil Percent 85.8 % 49.4 - 72.6 02/14 H [facility] AutoDiff* Auto Neutrophil Absolute 7.2 K/uL 2.0 - 6.4 02/14 H [facility] AutoDiff* Auto Lymphocyte Percent 3.8 % 18.0 - 40.0 02/14 L [facility] AutoDiff* Auto Lymphocyte Absolute 0.3 K/uL 1.5 - 3.0 02/14 L [facility] AutoDiff* Auto Monocyte Percent 9.4 % 4.9 - 10.1 02/14 NA [facility] AutoDiff* Auto Monocyte Absolute 0.8 K/uL 0.3 - 0.8 02/14 NA [facility] AutoDiff* Auto Eosinophil Percent 0.5 % 0.0 - 5.0 02/14 NA [facility] AutoDiff* Auto Eosinophil Absolute 0.0 K/uL 0.0 - 0.4 02/14 NA [facility] AutoDiff* Auto Basophil Percent 0.5 % 0.2 - 1.2 02/14 NA [facility] AutoDiff* Auto Basophil Absolute 0.0 K/uL 0.0 - 0.1 02/14 NA [facility] AutoDiff* Sex assigned at Male 02/14 NA [facility] CBC WBC 8.4 K/uL 3.7 - 10.5 02/14 NA [facility] CBC RBC 4.24 M/uL 3.81 - 5.87 02/14 NA [facility] CBC HGB 12.6 g/dL 12.0 - 17.9 02/14 [facility] CBC HCT 37.7 % 34.4 - 50.2 02/14 NA [facility] CBC MCV 88.9 fL 80.0 - 99.8 02/14 NA [facility] CBC MCH 29.7 pg 26.7 - 34.0 02/14 NA [facility] CBC MCHC 33.3 g/dL 31.0 - 37.0 02/14 NA [facility] CBC RDW 15.3 % 12.0 - 15.8 02/14 NA [facility] CBC PLT 138 K/uL 139 - 422 02/14 L [facility] CBC MPV 8.60 fL 6.84 - 10.28 02/14 NA [facility] CBC Sex assigned at Male 02/14 NA [facility] CMP Sodium Level 134 MMOL/L 135 - 145 02/14 L [facility] CMP Potassium Level 3.6 MMOL/L 3.5 - 5.0 02/14 NA [facility] CMP Chloride Level 100 MMOL/L 101 - 111 02/14 L [facility] CMP CO2/Carbon Dioxide 25 MMOL/L 24 - 32 02/14 NA [facility] CMP Anion Gap 9.0 5.0 - 15.0 02/14 NA [facility] CMP Glucose, Random 125 MG/DL - <=200 02/14 NA [facility] CMP BUN 19 MG/DL 8 - 20 02/14 NA [facility] CMP Creatinine 1.52 MG/DL 0.60 - 1.30 02/14 H [facility] CMP BUN/Creat Ratio 12.5 12.0 - 20.0 02/14 [facility] CMP Osmolality, Calculated 272 mOsm/L 02/14 [facility] CMP Calcium Level 9.1 MG/DL 8.4 - 10.2 02/14 NA [facility] CMP Total Protein 7.2 g/dL 6.4 - 8.3 02/14 NA [facility] CMP Albumin Level 4.1 g/dL 3.2 - 5.5 02/14 NA [facility] CMP Globulin Level 3.1 g/dL 1.5 - 3.5 02/14 NA [facility] CMP A/G Ratio 1.3 1.1 - 2.2 02/14 NA [facility] CMP ALP 45 IU/L 30 - 115 02/14 NA [facility] CMP ALT 53 IU/L 5 - 36 02/14 H [facility] CMP AST 79 IU/L 10 - 42 02/14 H [facility] CMP Bilirubin, Total 0.8 MG/DL 0.2 - 1.2 02/14 NA [facility] CMP GFR - Non 48 mL/min/1.7 3m2 >=61 02/14 L Units for estimated GFR are mL/min/1.73 square metersInterpr etive note for GFR estimates: [...] 18 or greater, not for pediatric patients. [facility] CMP Sex assigned at Male 02/14 NA [facility] CMP GFR - 58 mL/min/1.7 3m2 >=61 02/14 L [facility] Lactic WB Lactic Acid WB 2.17 MMOL/L 0.56 - 1.39 02/14 H [facility] Lactic WB Sex assigned at Male 02/14 NA [facility] Trop Troponin I 0.03 NG/ML 0.00 - 0.04 02/14 NA 1. Less than 0.04 ng/mL is within normal limits.2. Any cardiac troponin value at or above the 99% upper reference limit of 0.04 ng/mL is an indicator of myocardial damage.3. Serially testing at baseline, 3 and 6 hours is advisable, particularly with low level troponin elevations, for clinical distinction between acute myocardial infarction and other causes of myocardial damage. [facility] Trop Sex assigned at Male 02/14 NA [facility] Culture Blood No growth at 2 days. 02/14 60 [facility] C Blood C Blood
<b>Fi nal:</b><b r/>No growth at 5 days.

<b>Se x assigned at :</b>
Male< br/> 02/14 Performed at: [facility], [address] [place] [id number], Cell Biologist: Doc Jones M.D. [facility] [id number] SARS-CoV-2 Source Mckay geal 02/14 NA [facility] [id number] Influenza A Agn Molecular Detected Not Detected 02/14 C NOTIFIED TO DIPTI GROVE RN AT 02/14/2022 12:13 BY TC, LIVIA.This test is performed using a real-time PCR [...] determined. Re-collection is recommended if clinically indicated [facility] [id number] Influenza B Agn Molecular Not Detected Not Detected 02/14 NA Assay performed by RT-PCR [facility] [id number] SARS-CoV-2 Molecular Not Detected Not Detected 02/14 NA Assay performed by RT-PCRThis test was performed under U.S. Food and Drug Administratio n (FDA) Emergency use Authorization (EUA). This test has been validated but the [facility] independent review of this validation is pending. [facility] [id number] SARS-CoV-2 First test? No 02/14 NA [facility] [id number] Health Care Worker? No 02/14 NA [facility] [id number] SARS-CoV-2 Is the Patient Hospitalized ? No 02/14 NA [facility] [id number] SARS-CoV-2 Is the Patient in ICU? No 02/14 NA [facility] [id number] Patient From [facility] Area? No 02/14 NA [facility] [id number] Symptomatic per CDC? Yes 02/14 NA [facility] [id number] SARS-CoV-2 Is the Patient ? No 02/14 NA [facility] [id number] Sex assigned at Male 02/14 NA [facility] RSV Molc Respiratory Syncytial Virus Molecular Not Detected Not Detected 02/14 NA This test is performed using real-time PCR with higher sensitivity and specificity compared to [...] determined. Re-collection is recommended if clinically indicated. [facility] RSV Molc Sex assigned at Male 02/14 NA [facility] Diagnostic Reports Report Value Date Source Chest 1 Vw Portable INDICATION: Shortnes s of Breath COMPARISON: None. FINDINGS: The lungs are well expanded and clear, and the cardiac silhouette and pulmonary vessels appear normal. There is no pulmonary vascular redistribution, pleural effusion, or pneumothorax seen. Signed by: Sean Beverly MD on 02/14/2022 12:11 PM 02/14/2022 [facility] Consultation Notes Results Value Date Source Hospitalist Progress Note Patient: ROGER FREDERICK Age: 76 years Legal [...] 02/14/22 12:52:00 PST cloNIDine: 0.1 mg, ORAL, Q6H, PRN, Other (see comment), TAB, 02/14/22 12:54:00 PST docusate-senna 50 mg-8.6 mg oral tablet: = 1 Tab, ORAL, BID, TAB, 02/14/22 21:00:00 PST fenofibrate: 145 mg, ORAL, DAILY, TAB, 02/14/22 12:52:00 PST fluticasone 100 mcg inhalation powder: = 1 Puff, INH, DAILY, POWDER, 02/14/22 12:52:00 PST glucagon: 1 mg, SUBQ, As directed, PRN, Blood Glucose, INJ, 12/05/22 12:54:00 PST insulin lispro Correction Scale Med (Body wt 70-100kg): correction scale, SUBQ, AC&Bed, 02/14/22 21:00:00 PST magnesium oxide: 400 mg, ORAL, BID, PRN, Magnesium Replacement, TAB, 02/14/22 12:51:00 PST magnesium sulfate 2 g in SWFI 50 mL: 2 gm = 50 mL, IVPB, [id number], PRN, Magnesium Replacement, IV SOLN, 02/14/22 12:51:00 [...] 108, kg Documented Medications Documented A/Fish Oil 37187 u oral capsule: 0 Refill(s), Maintenance Aspir 81 oral enteric coated tablet: = 1 Tab, ORAL, DAILY, 0 Refill(s), Maintenance NovoLOG FlexPen: 0 Refill(s), Maintenance Semglee: 70 mg evenings, 0 Refill(s), Maintenance albuterol: 2.5 mg, INH, [id number], 0 Refill(s), Maintenance atorvastatin 10 mg oral [...] / SWFI 2 gm 50 mL, IVPB, [id number] ondansetron 2 mg/mL, 2 mL Inj 4 mg 2 mL, IV PUSH, Q4H potassium chloride 10 mEq 100 mL, IVPB, As directed Problem list: All Problems Current smoker / [id number] / Confirmed Ineffective breathing pattern / [id number] / Provisional Manage infection control / [id number] / Provisional Physical Examination Vital Signs 02/16/2022 [...] (last 24 hrs) Last Charted Minimum Maximum Temp(?F) 98.0 (FEB [...] Lovenox Prognosis: GUARDED and will depend to patient s response to treatment DC home soon Electronically signed by: MD White Rabin Signed on: 16-Feb-2022 10:32 PST [facility] R[facility]ER [facility]EDER[facility] Age: 76 years Legal [...] 02/14/22 12:52:00 PST cloNIDine: 0.1 mg, ORAL, Q6H, PRN, [...] 02/14/22 21:00:00 PST magnesium oxide: 400 mg, ORAL, BID, PRN, Magnesium Replacement, TAB, 02/14/22 12:51:00 PST magnesium sulfate 2 g in SWFI 50 mL: 2 gm = 50 mL, IVPB, [id number], PRN, Magnesium Replacement, IV SOLN, 02/14/22 12:51:00 [...] 108, kg Documented Medications Documented A/Fish Oil 55013 u oral capsule: 0 Refill(s), Maintenance Aspir 81 oral enteric coated tablet: = 1 Tab, ORAL, DAILY, 0 Refill(s), Maintenance NovoLOG FlexPen: 0 Refill(s), Maintenance Semglee: 70 mg evenings, 0 Refill(s), Maintenance albuterol: 2.5 mg, INH, [id number], 0 Refill(s), Maintenance atorvastatin 10 mg oral [...] / SWFI 2 gm 50 mL, IVPB, [id number] ondansetron 2 mg/mL, 2 mL Inj 4 mg 2 mL, IV PUSH, Q4H potassium chloride 10 mEq 100 mL, IVPB, As directed Problem list: All Problems Current smoker / [id number] / Confirmed Ineffective breathing pattern / [id number] / Provisional Manage infection control / [id number] / Provisional Physical Examination Vital Signs 02/16/2022 [...] (last 24 hrs) Last Charted Minimum Maximum Temp(?F) 98.0 (FEB [...] 16) L 11.6 (FEB 15) 12.6 (FEB 05) Hct L 34.3 (FEB 16) 34.9 (FEB [...] patient's response to treatment DC home soon [id number] Male 02/16/2022 [facility] Critical care medicine Hospital Progress note Patient: ROGER FREDERICK Age: 76 years Legal Sex: Male : 1945 Author: MD Angel, Jeronimo Basic Information Cough chest congestion wheezing is [...] 02/14/22 12:52:00 PST cloNIDine: 0.1 mg, ORAL, Q6H, PRN, [...] 02/14/22 21:00:00 PST magnesium oxide: 400 mg, ORAL, BID, PRN, Magnesium Replacement, TAB, 02/14/22 12:51:00 PST magnesium sulfate 2 g in SWFI 50 mL: 2 gm = 50 mL, IVPB, [id number], PRN, Magnesium Replacement, IV SOLN, 02/14/22 12:51:00 [...] 108, kg Documented Medications Documented A/Fish Oil 50001 u oral capsule: 0 Refill(s), Maintenance Aspir 81 oral enteric coated tablet: = 1 Tab, ORAL, DAILY, 0 Refill(s), Maintenance NovoLOG FlexPen: 0 Refill(s), Maintenance Semglee: 70 mg evenings, 0 Refill(s), Maintenance albuterol: 2.5 mg, INH, [id number], 0 Refill(s), Maintenance atorvastatin 10 mg oral [...] (last 24 hrs) Last Charted Minimum Maximum Temp(?F) 98.0 (FEB [...] Shortness of Breath REPORT:? INDICATION: Shortness of BreathCOMPARISON: None. FINDINGS: The [...] ECG Electronic Signature: MD Denise, Oren L 02/15/2022 11:37:19 . Impression and Plan Acute [...] 02/14/22 12:52:00 PST cloNIDine: 0.1 mg, ORAL, Q6H, PRN, [...] 02/14/22 21:00:00 PST magnesium oxide: 400 mg, ORAL, BID, PRN, Magnesium Replacement, TAB, 02/14/22 12:51:00 PST magnesium sulfate 2 g in SWFI 50 mL: 2 gm = 50 mL, IVPB, [id number], PRN, Magnesium Replacement, IV SOLN, 02/14/22 12:51:00 [...] 108, kg Documented Medications Documented A/Fish Oil 80037 u oral capsule: 0 Refill(s), Maintenance Aspir 81 oral enteric coated tablet: = 1 Tab, ORAL, DAILY, 0 Refill(s), Maintenance NovoLOG FlexPen: 0 Refill(s), Maintenance Semglee: 70 mg evenings, 0 Refill(s), Maintenance albuterol: 2.5 mg, INH, [id number], 0 Refill(s), Maintenance atorvastatin 10 mg oral [...] Ortiz Vijay Signed on: 15-Feb-2022 18:43 PST 02/16/2022 [facility] Critical Care Progress Note Patient: ROGER FREDERICK Age: 76 years Legal [...] 02/14/22 12:52:00 PST cloNIDine: 0.1 mg, ORAL, Q6H, PRN, [...] 02/14/22 21:00:00 PST magnesium oxide: 400 mg, ORAL, BID, PRN, Magnesium Replacement, TAB, 02/14/22 12:51:00 PST magnesium sulfate 2 g in SWFI 50 mL: 2 gm = 50 mL, IVPB, [id number], PRN, Magnesium Replacement, IV SOLN, 02/14/22 12:51:00 [...] 108, kg Documented Medications Documented A/Fish Oil 55034 u oral capsule: 0 Refill(s), Maintenance Aspir 81 oral enteric coated tablet: = 1 Tab, ORAL, DAILY, 0 Refill(s), Maintenance NovoLOG FlexPen: 0 Refill(s), Maintenance Semglee: 70 mg evenings, 0 Refill(s), Maintenance albuterol: 2.5 mg, INH, [id number], 0 Refill(s), Maintenance atorvastatin 10 mg oral [...] (last 24 hrs) Last Charted Minimum Maximum Temp(?F) 98.0 (FEB [...] Shortness of Breath REPORT: INDICATION: Shortness of BreathCOMPARISON: None. FINDINGS: The [...] 1 Lozenge, ORAL, Q4H, PRN, Sore Throat, KATLEYN, 02/15/22 17:53:00 PST Dextrose 50% Inj 50 [...] 02/14/22 12:52:00 PST cloNIDine: 0.1 mg, ORAL, Q6H, PRN, [...] 02/14/22 21:00:00 PST magnesium oxide: 400 mg, ORAL, BID, PRN, Magnesium Replacement, TAB, 02/14/22 12:51:00 PST magnesium sulfate 2 g in SWFI 50 mL: 2 gm = 50 mL, IVPB, B16L-Rfctzhex, PRN, Magnesium Replacement, IV SOLN, 02/14/22 12:51:00 [...] 108, kg Documented Medications Documented A/Fish Oil 86054 u oral capsule: 0 Refill(s), Maintenance Aspir 81 oral enteric coated tablet: = 1 Tab, ORAL, DAILY, 0 Refill(s), Maintenance NovoLOG FlexPen: 0 Refill(s), Maintenance Semglee: 70 mg evenings, 0 Refill(s), Maintenance albuterol: 2.5 mg, INH, L6P-Mxfadfmk, 0 Refill(s), Maintenance atorvastatin 10 mg oral [...] 1 Cap, ORAL, DAILY, 0 Refill(s), Maintenance. [id number] [facility] Patient: ROGER FREDERICK Age: 76 years Legal [...] 02/14/22 12:52:00 PST cloNIDine: 0.1 mg, ORAL, Q6H, PRN, [...] 02/14/22 21:00:00 PST magnesium oxide: 400 mg, ORAL, BID, PRN, Magnesium Replacement, TAB, 02/14/22 12:51:00 PST magnesium sulfate 2 g in SWFI 50 mL: 2 gm = 50 mL, IVPB, G60E-Slbufrzs, PRN, Magnesium Replacement, IV SOLN, 02/14/22 12:51:00 [...] 108, kg Documented Medications Documented A/Fish Oil 50653 u oral capsule: 0 Refill(s), Maintenance Aspir 81 oral enteric coated tablet: = 1 Tab, ORAL, DAILY, 0 Refill(s), Maintenance NovoLOG FlexPen: 0 Refill(s), Maintenance Semglee: 70 mg evenings, 0 Refill(s), Maintenance albuterol: 2.5 mg, INH, G2T-Dagxzleg, 0 Refill(s), Maintenance atorvastatin 10 mg oral [...] / SWFI 2 gm 50 mL, IVPB, [id number] ondansetron 2 mg/mL, 2 mL Inj 4 mg 2 mL, IV PUSH, Q4H potassium chloride 10 mEq 100 mL, IVPB, As directed Problem list: All Problems Current smoker / [id number] / Confirmed Manage infection control / [id number] / Provisional Physical Examination Vital Signs 02/15/2022 [...] (last 24 hrs) Last Charted Minimum Maximum Temp(?F) 97.9 (FEB [...] will depend to patient's response to treatment [id number] Male 02/15/2022 [facility] Consult note Patient: ROGER FREDERICK Age: 76 years Legal Sex: Male : 1945 Author: MD Ortiz Vijay Basic Information Provider information/ cc: Physicians Involved With Care ?? Admitting: ? MD Main Atefeh ?? Attending: ? MD Main Atefeh ?? Consulting: ? MD Ortiz Vijay ?? Primary Care: ??? NONE, . Acute hypoxic respiratory failure/influenza A tracheobronchitis/asthma exacerbation Chief Complaint Increasing cough congestion fever shortness of breath History of Present Illness The patient is a 36-year-old male with possible history of asthma/OSAS/DM2/hypertension hyperlipidemia obesity admitted with increasing cough shortness of breath chest congestion for last 4 to 5 days and now with fevers and body aches. He is [facility]. Laboratory work-up in the ER with white [...] medications: Home Medications (12) Active A/Fish Oil 89334 u oral capsule ?(Documented?02/14/22) acetaminophen 650 mg rectal suppository 650 mg = 1 Supp, PRN, RECTAL, Q4H?(Documented?02/14/22) acetaminophen 650 mg rectal suppository 650 mg = 1 Supp, PRN, RECTAL, Q4H?(Documented?02/14/22) albuterol 2.5 mg, INH, I1P-Jxgwrbww?(Documented?02/14) Aspir 81 oral enteric coated tablet 81 mg = 1 Tab, ORAL, DAILY?(Documented?02/14/22) atorvastatin 10 mg oral tablet 10 mg = 1 Tab, ORAL, DAILY?(Documented?02/14/22) chlorthalidone 25 mg oral tablet 25 mg = 1 Tab, ORAL, DAILY?(Documented?02/14/22) fenofibrate 145 mg oral tablet 145 mg = 1 Tab, ORAL, DAILY?(Documented?02/14/22) fluticasone 50 mcg/inh inhalation powder 1 Puff, INH, BID?(Documented?02/14/22) NovoLOG FlexPen ?(Documented?02/14/22) omeprazole 40 mg oral delayed release capsule [...] 02/14/22 12:52:00 PST cloNIDine: 0.1 mg, ORAL, Q6H, PRN, [...] mL: 2 gm = 50 mL, IVPB, A49P-Qpsgldrl, PRN, Magnesium Replacement, IV SOLN, 02/14/22 12:51:00 [...] 108, kg Documented Medications Documented A/Fish Oil 36585 u oral capsule: 0 Refill(s), Maintenance Aspir [...] 0 Refill(s), Maintenance albuterol: 2.5 mg, INH, M0L-Atvabcdd, 0 Refill(s), Maintenance atorvastatin 10 mg oral [...] 0 Refill(s), Maintenance, Active inpatient medications ACTIVE IN MEDS: albuterol-ipratropium (albuterol-ipratopium 3-0.5 mg/3 mL inh [...] in SWFI 50 mL) 2 gm IVPB S43W-Pbevjgrc ondansetron (Zofran) 4 mg IV PUSH Q4H [...] been selected or recorded. Social History Social and Psychosocial [...] would you like me to No *Is Caodaism/Spirituality/Tavia important to you as you cope No . Physical Examination VS/Measurements: Inpt. Vital signs (ST) Vital Signs (last 24 hrs) Last Charted Minimum Maximum Temp(?F) 98.8 (FEB [...] (FEB 14 13:21 PST) OXYFIO2 28 (FEB 14: PST) 28 (FEB 14 13:07 PST) 28 (FEB 14 13: PST) OXYFLOW 2 (FEB 14: PST) 2 (FEB 14:23 PST) 2 (FEB 14: PST) OXYDELIVERY Nasal cannula Room a Room a (FEB 14: PST) (FEB 14:21 PST) (FEB 14: PST) . General: Alert and oriented, Mild [...] Shortness of Breath REPORT:? INDICATION: Shortness of BreathCOMPARISON: None. FINDINGS: The [...] Ortiz Vijay Signed on: 15-Feb-2022 18:26 PST 02/15/2022 [facility] Consultation Patient: ROGER FREDERICK Age: 76 years Legal Sex: Male : 1945 Author: MD Ortiz Vijay Basic Information Provider information/ cc: Physicians Involved With Care Admitting: MD Main Atefeh Attending: MD Main Atefeh Consulting: MD Ortiz Vijay Primary Care: MD RAYNE . Acute hypoxic respiratory failure/influenza A tracheobronchitis/asthma exacerbation Chief Complaint Increasing cough congestion fever shortness of breath History of Present Illness The patient is a 36-year-old male with possible history of asthma/OSAS/DM2/hypertension hyperlipidemia obesity admitted with increasing cough shortness of breath chest congestion for last 4 to 5 days and now with fevers and body aches. He is [facility]. Laboratory work-up in the ER with white [...] medications: Home Medications (12) Active A/Fish Oil 56227 u oral capsule (Documented 02/14/22) acetaminophen 650 mg rectal suppository 650 mg = 1 Supp, PRN, RECTAL, Q4H (Documented 02/14/22) acetaminophen 650 mg rectal suppository 650 mg = 1 Supp, PRN, RECTAL, Q4H (Documented 02/14/22) albuterol 2.5 mg, INH, U4K-Juvcvnaj (Documented 02/14/22) Aspir 81 oral enteric coated tablet 81 mg = 1 Tab, ORAL, DAILY (Documented 02/14/22) atorvastatin 10 mg oral tablet 10 mg = 1 Tab, ORAL, DAILY (Documented 02/14/22) chlorthalidone 25 mg oral tablet 25 mg = 1 Tab, ORAL, DAILY (Documented 02/14/22) fenofibrate 145 mg oral tablet 145 mg = 1 Tab, ORAL, DAILY (Documented 02/14/22) fluticasone 50 mcg/inh inhalation powder 1 Puff, INH, BID (Documented 02/14/22) NovoLOG FlexPen (Documented 02/14/22) omeprazole 40 mg oral delayed release capsule [...] 02/14/22 12:52:00 PST cloNIDine: 0.1 mg, ORAL, Q6H, PRN, [...] mL: 2 gm = 50 mL, IVPB, R50W-Vnqxhrxj, PRN, Magnesium Replacement, IV SOLN, 02/14/22 12:51:00 [...] 108, kg Documented Medications Documented A/Fish Oil 35854 u oral capsule: 0 Refill(s), Maintenance Aspir [...] 0 Refill(s), Maintenance albuterol: 2.5 mg, INH, E9E-Pzqiffrv, 0 Refill(s), Maintenance atorvastatin 10 mg oral [...] in SWFI 50 mL) 2 gm IVPB W77S-Sjiqdwha ondansetron (Zofran) 4 mg IV PUSH Q4H [...] been selected or recorded. Social History Social and Psychosocial [...] would you like me to No *Is Caodaism/Spirituality/Tavia important to you as you cope No . Physical Examination VS/Measurements: Inpt. Vital signs (ST) Vital Signs (last 24 hrs) Last Charted Minimum Maximum Temp(?F) 98.8 (FEB [...] Shortness of Breath REPORT: INDICATION: Shortness of BreathCOMPARISON: None. FINDINGS: The [...] respiratory manifestations) Acute hypoxemic respiratory failure (Acute respiratory failure with hypoxia) . Acute hypoxic respiratory failure Influenza A tracheobronchitis DM2 Renal insufficiency acute on chronic Hypertension Hyperlipidemia Thrombocytopenia OSAS Obesity GERD Plan: Panculture Tamiflu IV Rocephin/Zithromax Bronchodilators/ICS/O2 supplementation Continue home medications Respiratory isolation Accu-Cheks/SSI Nocturnal CPAP use compliant DVT/PUD prophylaxis Condition prognosis guarded [id number] Male 02/15/2022 [facility] History and Physical Examination Patient: ROGER FREDERICK ? Age: 76 years?Legal Sex: MALE?: 1945 Date of Service 02/14/2022 13:21 [facility] Chief Complaint Shortness of breath. History of Present Illness 76-year-old male with past medical history significant for hypertension, hyperlipidemia, type 2 diabetes mellitus, asthma, obstructive sleep apnea, gastroesophageal reflux disease presents [facility] emergency department complaint shortness of breath.? Patient details that over the past 3 to 4 days he has been having progressive congestion, dry cough, mild shortness of breath.? Patient details body aches.? Patient also recently developed fevers.? Patient details that his recently had an upper respiratory infection 4 days prior.? Patient is visiting from [place].? Denies any chest pain.? No abdominal pain or tenderness. Review of Systems Constitutional:?Fever. ?Weakness.? Generalized body aches. Eye: ?No recent visual problem, No icterus, No discharge, No blurring, No double vision. Ear/Nose/Mouth/Throat:?Nasal congestion. ?No decreased hearing, No ear pain, No sore throat. ? Respiratory: Shortness of breath. ?Cough.? No sputum production, No wheezing. Cardiovascular: ?No chest pain, No palpitations, No bradycardia, No tachycardia, No peripheral edema.? Gastrointestinal: ?No nausea, No vomiting, No diarrhea, No constipation, No abdominal pain.? Genitourinary: ?No dysuria, No hematuria, No change in urine stream. Hematology/Lymphatics: ?No bruising tendency, No bleeding tendency. Endocrine: ?No excessive thirst, No polyuria, No cold intolerance, No heat intolerance. Immunologic: ?Not immunocompromised, No recurrent fevers. Musculoskeletal: ?No back pain, No neck pain, No joint pain, No muscle pain, No decreased range of motion, No trauma. ? Integumentary: ?No rash, No pruritus, No abrasions, No breakdown.?? Neurologic: ?Alert and oriented X4, No abnormal balance, No confusion, No numbness, No tingling, No headache. ? Psychiatric: ?No anxiety, No depression, No yessica, Not suicidal, Not delusional, No hallucinations. ? ? Review of systems completed. Physical Exam Vitals and Measurements T: 101.3 F HR: 98 RR: 20 BP: 155/65 SpO2: 99% O2 Delivery: Room air O2 Flow: 2L/min FiO2: 28% WT:?108 kg(Dose Calc Wt.)?WT:?108 kg ?Shock Index: ?0.606 02/14/22 13:21 ? General: ?Alert and oriented. ?Mild distress. Eye: ?Pupils are equal, round and reactive to light, Extraocular movements are intact, Normal conjunctiva. HENT: ?Normocephalic, Tympanic membranes are clear, Good light reflex, Normal hearing, Oral mucosa is moist, No pharyngeal erythema. Neck: ?Supple, Non-tender, No carotid bruit, No jugular venous distention.? Respiratory:?Tachypnea.? Respirations are non-labored, Breath sounds are equal, Symmetrical chest wall expansion, No chest wall tenderness. ? Cardiovascular: ?Normal rate, Regular rhythm, Normal peripheral perfusion, No edema, Good pulses equal in all extremities. ? Capillary refill exam: Bilateral: Upper extremity ( Capillary Refill Time (SHEEP OR CALF GRADER) returns in less than 2 seconds ), Lower extremity ( Capillary Refill Time (SHEEP OR CALF GRADER) returns in less than 2 seconds ). ? Gastrointestinal: ?Soft, Non-tender, Non-distended, Normal bowel sounds, No organomegaly. ? Genitourinary: ?No costovertebral angle tenderness. Lymphatics: ?No lymphadenopathy neck, axilla, groin. ? Musculoskeletal: ?Normal range of motion, Normal strength, No tenderness, No swelling, No deformity, Normal gait. ? Integumentary: ?Warm, [place], Intact, No pallor, No rash. ? Neurologic: ?Alert, Oriented, Normal sensory, Normal motor function, No focal deficits. ? Psychiatric: ?Cooperative, Appropriate mood and affect, Normal judgment, Non-suicidal. ? Assessment/Plan _ Orders: acetaminophen (Tylenol), 650 mg, [...] 21:00:00 PST enoxaparin (Lovenox), 40 mg, SUBQ, P49B-Qxmvlang, Indication = VTE Prophylaxis, INJ, 02/14/22 13:00:00 [...] mL), 2 gm = 50 mL, IVPB, G34Y-Odojqxjz, PRN, Magnesium Replacement, IV SOLN, 02/14/22 12:51:00 [...] Response per Protocol Vital Signs Weigh Patient ? #Acute hypoxemic respiratory failure #Influenza A Admit telemetry Tamiflu 75 mg twice daily DuoNeb breathing treatments Systemic corticosteroids Maintain adequate oxygenation, O2 as needed Pulmonology consult ? #Hypertension Continue chlorthalidone 25 mg half tab daily Maintain BP control, as needed medication available ? #Hyperlipidemia Continue fenofibrate 145 mg daily [...] Prognosis: GUARDED and will depend to patient s response to treatment? Continue plan of care per attending physician [...] Allergies Problem List ? Past medical history significant for hypertension, hyperlipidemia, type 2 diabetes mellitus, asthma, obstructive sleep apnea, gastroesophageal reflux disease. Procedure/Surgical History Past surgical history significant for bilateral knee arthroplasty. ?Inguinal hernia repair. [...] PRN Lovenox, 40 mg, 0.4 mL, SUBQ, P46O-Cusvjtwd magnesium oxide, 400 mg, 1 Tab, ORAL, BID, PRN magnesium sulfate 2 g in SWFI 50 mL, 2 gm, 50 mL, IVPB, O36M-Rmbtlord, PRN potassium bicarbonate-citric acid, 20 mEq, 1 [...] IV PUSH, Q4H, PRN Home A/Fish Oil 26370 u oral capsule acetaminophen 650 mg rectal suppository, 650 mg, 1 Supp, RECTAL, Q4H, PRN acetaminophen 650 mg rectal suppository, 650 mg, 1 Supp, RECTAL, Q4H, PRN albuterol, 2.5 mg, INH, D0Q-Mhixvuat Aspir 81 oral enteric coated tablet, 81 [...] a strong history of hypertension in the family?involving multiple family members.? Congestive heart failure in mother. ?Alzheimer's dementia in father. Diagnostics Results Chest 1 Vw Portable ? 02/14/22 12:11:07 INDICATION: Shortness of Breath ? COMPARISON: None. ? FINDINGS: The lungs are well expanded and clear, and the cardiac silhouette and pulmonary vessels appear normal. There is no pulmonary vascular redistribution, pleural effusion, or pneumothorax seen. ? Signed by: Sean Beverly MD on 02/14/2022 12:11 PM Electronically signed by: LOUIS Guerra Armen Signed on: 14-Feb-2022 13:56 PST 02/14/2022 [facility] Portable XR Chest AP single view INDICATION: Shortness of Breath COMPARISON: None. FINDINGS: The lungs are well expanded and clear, and the cardiac silhouette and pulmonary vessels appear normal. There is no pulmonary vascular redistribution, pleural effusion, or pneumothorax seen. Signed by: Sean Beverly MD on 02/14/2022 12:11 PM Final 02/14/2022 [facility] ED Physician Notes Patient: ROGER FREDERICK Age: 76 years Legal Sex: Male : 1945 Author: MD Denise, Oren Ny Basic Information MSEI MD/GEAR NICKER/PA Time Patient Seen face to face: Date and time 02/14/2022 11:28:55 . History source: Patient, significant other. Arrival mode: Private vehicle. History limitation: None. Additional information: Chief Complaint from Nursing Triage Note : Reason for visit history 02/14/2022 11:21 PST BIBA c/c SOB, nausea, cough, and congestion x 3 days. Pt here on vacation, recent stomach flu. 4mg Zofran given in route. Pt 90% RA, placed on 2L NC. Hx: HTN, DM2, asthma. . History of Present Illness The patient presents with Patient visiting from [place]. His been ill for the last 4 days, with progressive chest congestion, prominent dry cough and now fever. Patient's had an upper respiratory infection 4 days ago and he has not been symptomatic. He has complained of progressive cough, and today has become increasingly weak to the point where he can hardly sit up much less stand. He is complaining of some shortness of breath as well. Minimal sputum production. No vomiting or diarrhea at this time. Past history significant for insulin-dependent type 2 diabetes, hypertension, asthma.. Review of Systems Additional review of systems information: All other systems reviewed and otherwise negative. Health Status Allergies: Allergic Reactions (Selected) No Known Medication Allergies. Medications: (Selected) Documented Medications Documented A/Fish Oil 13542 u oral capsule: 0 Refill(s), Maintenance Aspir [...] 0 Refill(s), Maintenance albuterol: 2.5 mg, INH, X9R-Kjtniaoc, 0 Refill(s), Maintenance atorvastatin 10 mg oral [...] (kg) 108 kg . General: Awake, alert patient in mild to moderate distress. He appears quite short of breath. Skin is moderately hot.. No evidence of trauma. PERRLA, EOMI, conjunctiva normal. No facial swelling or edema. Neck supple. No adenopathy or meningismus. No thyromegaly. Chest: No chest wall pain to palpation. Tachypneic respiratory pattern. Diminished breath sounds right base, with rales in both bases. Bilateral expiratory wheezes. Cardiac: Regular rate and rhythm without gallop or murmur. Abdomen is without distention. No tenderness to palpation. No rebound or guarding. No organomegaly. No CVA tenderness. Extremities without peripheral edema. No evidence of any injuries to extremities. Neurologic examination appears to be normal. Cranial nerves intact. Moves all extremities equally. Mental status is awake and alert. Oriented and lucid.. Medical Decision Making Differential Diagnosis: Pneumonia, bronchitis, congestive heart failure, chronic obstructive pulmonary disease, asthma, influenza, COVID. Documents reviewed: None available. Orders Launch Order Profile (Selected) Inpatient Orders InProcess (Procedure Completed) ECG 12 Lead - CV (ED): 02/14/22 12:15:00 PST, Stat, NOW Ordered Admission Status: 02/14/22 12:50:00 PST, Inpatient, Level Of Care: Tele Atrovent: 0.5 mg, INH, Q2H, PRN, Wheezing, NEB AMP, 02/14/22 12:54:00 PST BMAT Assessment: 02/14/22 17:48:15 PST, BID8 Bedrest: 02/14/22 12:54:00 PST, Continuous Order, Until Stable Benadryl: 25 mg, IV PUSH, Q6H, PRN, Itching, INJ, 02/14/22 12:54:00 PST Benadryl: 25 mg, IV PUSH, QBedtime, PRN, Insomnia, INJ, 02/14/22 12:54:00 PST CBC w Differential: 02/14/22 12:54:00 PST, QMorning, Maria Elena Priority: Routine Rpt Priority: Routine, Not Collected Lab Collect, Blood CMP Comprehensive Metabolic Panel: 02/14/22 12:54:00 PST, QMorning, Maria Elena Priority: Routine Rpt Priority: Routine, Not Collected Lab Collect, Blood CPAP/NIV Management Daily: 02/14/22 13:18:00 PST, DAILY, cpap at bedtime, sleep apnea Chair: 02/14/22 12:54:00 PST, TIDMEALS Consistent Carbohydrate Diet - Adult: 02/14/22 12:54:00 PST, Start Meal: Send Tray Now, Standard Carb(50-70 gm/meal) Daily COVID-19 Symptom Reassessment: 02/15/22 9:00:00 PST, DAILY Dextrose 50% Inj 50 mL: = 25 mL, IV PUSH, As directed, PRN, Blood Glucose, INJ, 02/14/22 12:54:00 PST Dextrose 50% Inj 50 mL: = 50 mL, IV PUSH, As directed, PRN, Blood Glucose, INJ, 02/14/22 12:54:00 PST Dulcolax Laxative: 10 mg, RECTAL, DAILY, PRN, Constipation, SUPP, 02/14/22 12:54:00 PST ED Possible Admit: 02/14/22 11:45:00 PST Fingerstick/Capillary Blood Sugar: 02/14/22 12:54:00 PST, AC&Bed Fingerstick/Capillary Blood Sugar: 02/14/22 12:54:00 PST, PRN Order, Per Hypoglycemia Protocol Full Code: 02/14/22 12:54:00 PST, Continuous Order, Not Yet Discussed with Patient HHN Treatment: 02/14/22 15:14:00 PST, Routine, QID7, 3 mL Albuterol - Ipratrop Hypoglycemia Protocol: 02/14/22 12:54:00 PST, Per Reference Text Immunization Quality Measures: 02/14/22 13:03:45 PST, Stop Dt/Tm 02/14/22 13:03:45 PST [employer] Consult: 02/14/22 17:58:35 PST, Reason for consult: Discern alert Intake and Output: 02/14/22 12:54:00 PST, G12E-Knkgkzqy, Strict K-Phos Neutral: = 1 Tab, ORAL, As directed, PRN, Phosphorus Replacement, TAB, 02/14/22 12:52:00 PST Lovenox: 40 mg, SUBQ, DAILY, Indication = VTE Prophylaxis, INJ, 02/14/22 18:00:00 PST Low Fall Risk: Standard Precautions: 02/14/22 17:48:15 PST, BID Magnesium Level: 02/14/22 12:54:00 PST, QMorning, Maria Elena Priority: Routine Rpt Priority: Routine, Not Collected Lab Collect, Blood Notify Physician: 02/14/22 11:32:00 PST, See Order Comments Notify Physician: 02/14/22 12:51:00 PST, If magnesium level is less than 1 mg/dL Notify Physician: 02/14/22 12:51:00 PST, If potassium level less than 2.1 mEq/L or greater than 5.9 mEq/L Notify Physician: 02/14/22 12:52:00 PST, Phosphorus level equal or less than 1.5mg/dL or greater than 5mg/dL Nursing Communication Electrolyte Replacement: 02/14/22 12:51:00 PST, BID, Review Electrolyte Replacement orders and magnesium and potassium levels. Nursing Communication Phosphate Replacement: 02/14/22 12:52:00 PST, DAILY, Review phosphate replacement orders and review Sodium, Potassium, Creatinine and Phosphate levels. Nursing Communication: 02/14/22 12:51:00 PST, Potassium Replacement Nursing Communication: If patient is on dialysis call provider for custom dosing instructions for electrolyte replacement. Nursing Communication: 02/14/22 12:51:00 PST, Potassium Replacement Nursing Communication: Telemetry monitoring is required for potassium chloride infusion rates greater than 10 mEq/hour Nursing Communication: 02/14/22 12:52:00 PST, Phosphate Replacement Nursing Communication: If patient is on TPN, PPN or dialysis, please call provider for custom dosing instructions. For patients weight less than 50 Kg, contact the provider for custom dosing instructions. Obtain a Copy of Advance Directive: 02/14/22 17:55:53 PST, ONCE, Stop Dt/Tm 02/14/22 17:55:53 PST Obtain code/implementation order: 02/14/22 17:55:53 PST, ONCE, Stop Dt/Tm 02/14/22 17:55:53 PST Oxygen Therapy: 02/14/22 12:54:00 PST, Routine, Continuous Order, 2 Liters per Nasal Cannula, Start oxygen via nasal cannula at 2 L/min. Titrate by 1 L/min. increments, each 5 minutes, to keep O2 Sat greater than or equal to 92%. Maximum limit = 6 L/min. Call phys... POC Lactic Acid (ED): 02/14/22 11:32:00 PST, Blood, ONCE, Stop Dt/Tm 02/14/22 11:32:00 PST Phosphorus Level: 02/14/22 12:54:00 PST, QMorning, Maria Elena Priority: Routine Rpt Priority: Routine, Not Collected Lab Collect, Blood Physician Consult: 02/14/22 13:17:00 PST, MD Angel, jerad Decker, Unit Staff To Call? No Precautions: 02/14/22 12:54:00 PST, Continuous Order, Fall Precautions Protonix: 40 mg, ORAL, DAILY, EC TAB, 02/14/22 12:54:00 PST Rapid Response Protocol Orders or Emergency Response per Protocol: 02/14/22 12:54:00 PST, Per protocol SCD: 02/14/22 12:54:00 PST, S5X-Ckbovnsl, While In Bed; Remove every 8 hours for 30 minutes then reapply. SOLU-Medrol: 40 mg, IV PUSH, Q6H, INJ, 02/14/22 18:00:00 PST Smoking Cessation - RN: 02/14/22 18:00:36 PST, ONCE, Stop Dt/Tm 02/14/22 18:00:36 PST Tamiflu: 75 mg, ORAL, BID, ORAL SUSP, 02/14/22 21:00:00 PST Telemetry Monitorin02/14/22 12:50:00 PST, Continuous Order Tylenol: 650 mg, ORAL, Q6H, PRN, Other (see comment), TAB, 02/14/22 12:54:00 PST Tylenol: 650 mg, RECTAL, Q6H, PRN, Other (see comment), SUPP, 02/14/22 12:54:00 PST VTE Quality Measures: 02/14/22 12:55:44 PST, Stop Dt/Tm 02/14/22 12:55:44 PST Vital Signs: 02/14/22 12:54:00 PST, Q4H Weigh Patient: 02/14/22 12:54:00 PST, [id number] Zofran: 4 mg, IV PUSH, Q4H, PRN, [...] 02/14/22 12:52:00 PST cloNIDine: 0.1 mg, ORAL, Q6H, PRN, [...] 02/14/22 21:00:00 PST magnesium oxide: 400 mg, ORAL, BID, PRN, Magnesium Replacement, TAB, 02/14/22 12:51:00 PST magnesium sulfate 2 g in SWFI 50 mL: 2 gm = 50 mL, IVPB, T50Q-Hxaydwhb, PRN, Magnesium Replacement, IV SOLN, 02/14/22 12:51:00 [...] kg Ordered (Dispatched) Urinalysis w C/S IF Indicated: 02/14/22 11:32:00 PST, ONCE, Stat, Not Collected Nurse Collect, Urine Clean Catch, Stop D/ PST Canceled Coronavirus COVID19 + Influenza A+B + RSV Molecular: 02/14/22 11:42:00 PST, [...] 02/14/22 11:42:00 PST C diff Decision Guide Needed: 02/15/22 0:54:10 PST, Stop Dt/Tm 02/15/22 0:54:10 PST C diff Decision Guide Needed: 02/15/22 10:35:46 PST, Stop Dt/Tm 02/15/22 10:35:46 PST CBC w Differential: 02/14/22 11:32:00 PST, ONCE, Maria Elena Priority: Stat Rpt Priority: Stat, Not Collected Lab Collect, Blood, Stop Dt/Tm 02/14/22 11:32:00 PST CRP CReactive Protein: 02/14/22 11:42:00 PST, ONCE, Maria Elena Priority: Stat Rpt Priority: Stat, Not Collected Lab Collect, Blood, Stop Dt/Tm 02/14/22 11:43:00 PST Chest 1 Vw Portable: 02/14/22 11:42:00 PST, Stat, Reason: Shortness of Breath, Patient not on O2, OK Comprehensive Metabolic Panel CMP: 02/14/22 11:32:00 PST, ONCE, Maria Elena Priority: Stat Rpt Priority: Stat, Not Collected Lab Collect, Blood, Stop Dt/Tm 02/14/22 11:32:00 PST D Dimer Quantitative: 02/14/22 11:42:00 PST, ONCE, Maria Elena Priority: Stat Rpt Priority: Stat, Not Collected Lab Collect, Blood, Stop Dt/Tm 02/14/22 11:43:00 PST Differential Automated*: 02/14/22 11:44:00 PST, ONCE, Maria Elena Priority: Stat Rpt Priority: Stat, Collected Lab Collect, Blood, Stop Dt/Tm 02/14/22 11:44:00 PST Differential Automated*: 02/15/22 6:58:00 PST, ONCE, Maria Elena Priority: Routine Rpt Priority: Routine, Collected Lab Collect, Blood, Stop Dt/Tm 02/15/22 6:58:00 PST ED Assessment Adult: 02/14/22 11:30:41 PST HHN Treatment: 02/14/22 12:46:00 PST, Stat, ONCE, Stop Dt/Tm 02/14/22 12:46:00 PST Lactic Acid/Lactate Whole Blood: 02/14/22 11:32:00 PST, ONCE, Maria Elena Priority: Stat Rpt Priority: Stat, Not Collected Lab Collect, Blood, Stop Dt/Tm 02/14/22 11:32:00 PST Lactic Acid/Lactate: 02/14/22 13:44:00 PST, ONCE, Maria Elena Priority: TS Rpt Priority: Timed Study, Not Collected Lab Collect, Blood, Stop Dt/Tm 02/14/22 13:44:00 PST Lactic Acid/Lactate: 02/14/22 16:25:00 PST, ONCE, Maria Elena Priority: TS Rpt Priority: Timed Study, Not Collected Lab Collect, Blood, Stop Dt/Tm 02/14/22 16:25:00 PST Non-Opioid Med Reassessment: 02/14/22 12:56:47 PST, Stop Dt/Tm 02/14/22 12:56:47 PST Nutritional Services Consult: 02/14/22 18:00:39 PST, Reason for consult: Hospital policy POC G3+ Arterial ISTAT Panel: Blood, Collected Y/N, 02/14/22 11:56:06 PST, RT, Routine, 02/14/22 11:56:06 /[place] POC Glucose Panel: Blood, Collected Y/N, 02/14/22 18:44:24 PST, RT, Routine, 02/14/22 18:44:24 /[place] POC Glucose Panel: Blood, Collected Y/N, 02/14/22 21:26:39 PST, RT, Routine, 02/14/22 21:26:39 [facility] POC Glucose Panel: Blood, Collected Y/N, 02/15/22 5:51:56 PST, RT, Routine, 02/15/22 5:51:56 [facility] Possible Sepsis: 02/14/22 11:38:08 PST, Stop Dt/Tm 02/14/22 11:38:08 PST Possible Severe Sepsis: 02/14/22 12:13:09 PST, Stop Dt/Tm 02/14/22 12:13:09 PST Procalcitonin Level: 02/14/22 11:42:00 PST, ONCE, Maria Elena Priority: Stat Rpt Priority: Stat, Not Collected Lab Collect, Blood, Stop Dt/Tm 02/14/22 11:43:00 PST RSV Molecular: ONCE, Routine, Collected Nurse Collect, 02/14/22 11:36:00 PST, Nasopharyngeal, Stop Dt/Tm 02/14/22 11:36:00 PST Respiratory Therapy Medication Communication: 02/14/22 12:46:39 PST, ONCE, Stop Dt/Tm 02/14/22 12:46:39 PST Respiratory Therapy Medication Communication: 02/14/22 12:46:39 PST, ONCE, Stop Dt/Tm 02/14/22 12:46:39 PST Respiratory Therapy Medication Communication: 02/14/22 12:52:51 PST, ONCE, Stop Dt/Tm 02/14/22 12:52:51 PST Respiratory Therapy Medication Communication: 02/14/22 12:53:07 PST, ONCE, Stop Dt/Tm 02/14/22 12:53:07 PST Respiratory Therapy Medication Communication: 02/14/22 12:54:25 PST, ONCE, Stop Dt/Tm 02/14/22 12:54:25 PST Respiratory Therapy Medication Communication: 02/14/22 12:54:25 PST, ONCE, Stop Dt/Tm 02/14/22 12:54:25 PST Respiratory Therapy Medication Communication: 02/14/22 13:48:38 PST, ONCE, Stop Dt/Tm 02/14/22 13:48:38 PST Respiratory Therapy Medication Communication: 02/14/22 13:52:14 PST, ONCE, Stop Dt/Tm 02/14/22 13:52:14 PST Rocephin: 2 gm, IV, ONCE, Indication= Pneumonia, community-acquired, STAT, INJ, 02/14/22 11:42:00 PST, Stop date 02/14/22 11:42:00 PST SARS CoV-2 + Influenza A+B Molecular: 02/14/22 11:32:00 PST, ONCE, Routine, Not Collected Nurse Collect, Nasopharyngeal, Yes, No, No, No, No, No, No, Stop Dt/Tm 02/14/22 11:32:00 PST SOLU-Medrol: 60 mg, IV, ONCE, STAT, INJ, 02/14/22 12:46:00 PST, Stop date 02/14/22 12:46:00 PST Serum Indices: 02/14/22 11:44:00 PST, ONCE, Maria Elena Priority: Stat Rpt Priority: Stat, Collected Lab Collect, Blood, Stop Dt/Tm 02/14/22 11:44:00 PST Serum Indices: 02/14/22 14:25:00 PST, ONCE, Maria Elena Priority: TS Rpt Priority: Timed Study, Collected Lab Collect, Blood, Stop Dt/Tm 02/14/22 14:25:00 PST Serum Indices: 02/14/22 16:42:37 PST, ONCE, Maria Elena Priority: TS Rpt Priority: Timed Study, Collected Lab Collect, Blood, Stop Dt/Tm 02/14/22 16:42:00 PST Serum Indices: 02/15/22 6:58:00 PST, ONCE, Maria Elena Priority: Routine Rpt Priority: Routine, Collected Lab Collect, Blood, Stop Dt/Tm 02/15/22 6:58:00 PST Troponin I: 02/14/22 11:32:00 PST, ONCE, Stat, Not Collected Lab Collect, Blood, Lab Collect, Stop Dt/Tm 02/14/22 11:32:00 PST Verify ePrescribe Patient Pharmacy: 02/14/22 11:30:02 PST, Use the 'Patient Pharmacy' button in the toolbar to review/update the patient's pharmacy for ePrescribe. acetaminophen: 1,000 mg, ORAL, ONCE, STAT, TAB, 02/14/22 11:47:00 PST, Stop date 02/14/22 11:47:00 PST albuterol: 5 mg, INH, ONCE, STAT, NEB AMP, 02/14/22 12:46:00 PST, Stop date 02/14/22 12:46:00 PST azithromycin: 500 mg = 1 Vial, IV, ONCE, Indication= Pneumonia, community-acquired, STAT, INJ, 02/14/22 11:42:00 PST, Stop date 02/14/22 11:42:00 PST, 250 mL/hr, 60 min sodium chloride 0.9% 2,000 mL: 2,000 mL, IV, 02/14/22 11:42:00 PST, Stop date 02/14/22 12:45:00 PST, 1000 mL/hr, 2 hr, Order Weight 108, kg Discontinued ED Skin Risk Assessment: 02/14/22 11:30:41 PST, Stop Dt/Tm 02/14/22 11:30:41 PST. Electrocardiogram: EP Interp, SINUS RHYTHM RIGHT BUNDLE BRANCH BLOCK [120+ [...] 02/14/2022 11:45 PST D-Dimer, Qnt 0.45 mcg/mL FEU Normal 02/14/2022 11:44 PST WBC 8.4 K/uL [...] % Normal Auto Neutrophil Absolute 7.2 K/uL PR Auto Lymphocyte Absolute 0.3 K/uL LOW Auto [...] mg/dL Normal Lactic Acid WB 2.17 mmol/L PR 02/14/2022 11:36 PST Influenza A Agn Molecular Detected Influenza B Agn Molecular Not Detected Patient From [facility] Area? No SARS-CoV-2 Molecular Not Detected SARS-CoV-2 [...] Shortness of Breath REPORT: INDICATION: Shortness of BreathCOMPARISON: None. FINDINGS: The lungs are well expanded and clear, and the cardiac silhouette and pulmonary vessels appear normal. There is no pulmonary vascular redistribution, pleural effusion, or pneumothorax seen. Signed by: Sean Beverly MD on 02/14/2022 12:11 PM. Reexamination/ Reevaluation Course: Clinically the patient appears to be moderately symptomatic and I believe has significant respiratory issues. He was hydrated vigorously in the emergency room. He was cultured up, and given Rocephin 2 g and azithromycin for community-acquired pneumonia empirically. Influenza study came back positive as well and the patient was also given Tamiflu. Treated for his fever. He is placed on supplemental oxygen. Given breathing treatments with albuterol and Atrovent. Cultures obtained. Patient is moderately symptomatic, and at this point I believe requires hospitalization. Hospitalist notified, work station support specialist, consulted as well. After initial treatments, the patient is feeling somewhat better but still [...] GERD Plan Condition: Improved, Stable. Disposition: Admit. [id number] Male 02/14/2022 [facility] Discharge Summaries Results Value Date Source Discharge Summary ATTENDING PHYSICIAN: MD Luz [place] ADMIT DATE: 02/14/2022 DISCHARGE DATE: 02/16/2022 DISCHARGE SUMMARY DATE OF ADMISSION: 02/14/2022. DATE [...] was noted to have respiratory failure and hypoxia secondary to influenza A. The patient was admitted to telemetry for further care. HOSPITAL COURSE: The patient was admitted to telemetry, given oxygen, nebulizer treatments, and Tamiflu. The patient improved. At this time, the patient is off oxygen, doing well. The patient wants to go home. DISCHARGE DISPOSITION: The patient was discharged home. CONDITION ON DISCHARGE: Stable. ACTIVITY: As tolerated. DIET: Cardiac diet as tolerated. DISCHARGE MEDICATIONS: Tamiflu as directed. The rest of the medications are the same as home medications. FOLLOWUP CARE: The patient to follow up with primary care doctor as an outpatient. The patient to come back to emergency room with worsening signs or symptoms. Total time spent with this patient on discharge was more than 30 minutes. MD Chito Leone RN, 02/19/2022 11:01:06 Conf # [id number] Sarah DOUGHERTY, 02/19/2022 13:13:00 Dictation ID [id number] Male 02/19/2022 [facility] History and Physicals Results Value Date Source Hospitalist Admission H&P 02/14/2022 [facility] History and Physical Patient: ROGER FREDERICK Age: 76 years Legal Sex: MALE : 1945 Date of Service 02/14/2022 13:21 PST Chief Complaint Shortness of breath. History of Present Illness 76-year-old male with past medical history significant for hypertension, hyperlipidemia, type 2 diabetes mellitus, asthma, obstructive sleep apnea, gastroesophageal reflux disease presents [facility] emergency department complaint shortness of breath. Patient details that over the past 3 to 4 days he has been having progressive congestion, dry cough, mild shortness of breath. Patient details body aches. Patient also recently developed fevers. Patient details that his recently had an upper respiratory infection 4 days prior. Patient is visiting from [place]. Denies any chest pain. No abdominal pain or tenderness. Review of Systems Constitutional: Fever. Weakness. Generalized body aches. Eye: No recent visual problem, No icterus, No discharge, No blurring, No double vision. Ear/Nose/Mouth/Throat: Nasal congestion. No decreased hearing, No ear pain, No sore throat. Respiratory: Shortness of breath. Cough. No sputum production, No wheezing. Cardiovascular: No chest pain, No palpitations, No bradycardia, No tachycardia, No peripheral edema. Gastrointestinal: No nausea, No vomiting, No diarrhea, No constipation, No abdominal pain. Genitourinary: No dysuria, No hematuria, No change in urine stream. Hematology/Lymphatics: No bruising tendency, No bleeding tendency. Endocrine: No excessive thirst, No polyuria, No cold intolerance, No heat intolerance. Immunologic: Not immunocompromised, No recurrent fevers. Musculoskeletal: No back pain, No neck pain, No joint pain, No muscle pain, No decreased range of motion, No trauma. Integumentary: No rash, No pruritus, No abrasions, No breakdown. Neurologic: Alert and oriented X4, No abnormal balance, No [...] oriented. Mild distress. Eye: Pupils are equal, round and reactive to light, Extraocular movements are intact, Normal conjunctiva. HENT: Normocephalic, Tympanic membranes are clear, Good light reflex, Normal hearing, Oral mucosa is moist, No pharyngeal erythema. Neck: Supple, Non-tender, No carotid bruit, No jugular venous distention. Respiratory: Tachypnea. Respirations are non-labored, Breath sounds are equal, Symmetrical chest wall expansion, No chest wall tenderness. Cardiovascular: Normal rate, Regular rhythm, Normal peripheral perfusion, No edema, Good pulses equal in all extremities. Capillary refill exam: Bilateral: Upper extremity ( Capillary Refill Time (SHEEP OR CALF GRADER) returns in less than 2 seconds ), Lower extremity ( Capillary Refill Time (SHEEP OR CALF GRADER) returns in less than 2 seconds ). Gastrointestinal: Soft, Non-tender, Non-distended, Normal bowel sounds, No organomegaly. Genitourinary: No costovertebral angle tenderness. Lymphatics: No lymphadenopathy neck, axilla, groin. Musculoskeletal: Normal range of motion, Normal strength, No tenderness, No swelling, No deformity, Normal gait. Integumentary: Warm, [place], Intact, No pallor, No rash. Neurologic: Alert, Oriented, Normal sensory, Normal motor function, No focal deficits. Psychiatric: Cooperative, Appropriate mood and affect, Normal judgment, Non-suicidal. Assessment/Plan _ Orders: acetaminophen (Tylenol), 650 mg, [...] 21:00:00 PST enoxaparin (Lovenox), 40 mg, SUBQ, [id number], Indication = VTE Prophylaxis, INJ, 02/14/22 13:00:00 [...] mL), 2 gm = 50 mL, IVPB, [id number], PRN, Magnesium Replacement, IV SOLN, 02/14/22 12:51:00 [...] Response per Protocol Vital Signs Weigh Patient #Acute [...] to treatment Continue plan of care per attending physician [...] Medication Allergies Problem List Past medical history significant for hypertension, hyperlipidemia, type 2 diabetes mellitus, asthma, obstructive sleep apnea, gastroesophageal reflux disease. Procedure/Surgical History Past surgical history significant for bilateral knee arthroplasty. Inguinal hernia repair. [...] PRN Lovenox, 40 mg, 0.4 mL, SUBQ, [id number] magnesium oxide, 400 mg, 1 Tab, ORAL, BID, PRN magnesium sulfate 2 g in SWFI 50 mL, 2 gm, 50 mL, IVPB, [id number], PRN potassium bicarbonate-citric acid, 20 mEq, 1 [...] IV PUSH, Q4H, PRN Home A/Fish Oil [id number] u oral capsule acetaminophen 650 mg rectal suppository, 650 mg, 1 Supp, RECTAL, Q4H, PRN acetaminophen 650 mg rectal suppository, 650 mg, 1 Supp, RECTAL, Q4H, PRN albuterol, 2.5 mg, INH, [id number] Aspir 81 oral enteric coated tablet, 81 [...] PST Coagulation D-Dimer, Qnt 0.45 mcg/mL FEU 12/05/22 11:45 PST Immunology Respiratory Syncytial Virus Molecular [...] of harming or killing anyone else?: No CSSRS Risk Level: No risk (0-24) CSSRS Suicide screening: Screening already completed this visit CSSRS Suicide screening ED: Complete the suicide screening Patient denies any tobacco, alcohol, substance [...] Sean Beverly MD on 02/14/2022 12:11 PM Seen and examined. Agreed with above plan. Acute hypoxemic respiratory failure. Influenza A. Tamiflu 75 mg twice daily [id number] Male 02/14/2022 [facility] Vital Signs Vital Sign Value Date Comments Source Pulse Oximetry 97 % 02/16/2022 60 [facility] Respiratory rate 18 br/min 02/16/2022 60 [facility] Peripheral Pulse Rate 87 bpm 02/16/2022 60 [facility] Pulse Oximetry 97 % 02/16/2022 60 [facility] Oxygen FiO2 21 % 02/16/2022 60 [facility] Respiratory rate 13 br/min 02/16/2022 [facility] Pulse Rate 87 bpm 02/16/2022 60 [facility] Oxygen FiO2 21 % 02/16/2022 60 [facility] Pulse Oximetry 97 % 02/16/2022 60 [facility] Temperature (F) 98.7 [degF] 02/16/2022 [facility] Pulse Rate 89 bpm 02/16/2022 60 [facility] Respiratory rate 18 br/min 02/16/2022 60 [facility] Systolic BP 142 mm[Hg] 02/16/2022 60 [facility] Diastolic BP 82 mm[Hg] 02/16/2022 60 [facility] Oxygen FiO2 21 % 02/16/2022 60 [facility] Temperature (F) 98.0 [degF] 02/16/2022 60 [facility] Systolic BP 150 mm[Hg] 02/16/2022 60 [facility] Diastolic BP 78 mm[Hg] 02/16/2022 60 [facility] Weight (kg) 108.5 kg 02/16/2022 60 [facility] Temperature (F) 97.4 [degF] 02/16/2022 [facility] Systolic BP 153 mm[Hg] 02/16/2022 60 [facility] Diastolic BP 91 mm[Hg] 02/16/2022 60 [facility] Oxygen flow 2 L/min 02/16/2022 60 [facility] Oxygen flow 2 L/min 02/16/2022 60 [facility] Oxygen flow 2 L/min 02/16/2022 60 [facility] Weight (kg) 109.9 kg 02/15/2022 60 [facility] HeightLength (cm) 175.24 cm 02/15/2022 [facility] ([facility]) 108 kg 02/15/2022 60 [facility] Body Mass Index 35.17 kg/m2 02/15/2022 60 [facility] Dose calculation weight (kg) 108 kg 02/15/2022 [facility] Heart Rate Monitored 94 bpm 02/15/2022 [facility] Heart Rate Monitored 88 bpm 02/14/2022 [facility] Heart Rate Monitored 100 bpm 02/14/2022 60 [facility] Mean BP 81 mm[Hg] 02/14/2022 60 [facility] Dose calculation weight (kg) 108 kg 02/14/2022 60 [facility] Encounters Location Location Details Encounter Type Encounter Number Reason For Visit Attending Provider ADM Date DC Date Status Source 60 60 [facility] [address] Inpatient [id number] ACUTE HYPOXEMIC RESPIRATO RY FAILURE, INFLUENZA A Wilfredo Brandonjoo 02/14 Active [facility] Procedures Procedure Code Date Perfomer Comments Source ROUTINE VENIPUNCTURE 17898 02/16/2022 60 [facility] ROUTINE VENIPUNCTURE 66872 02/15/2022 60 [facility] ROUTINE VENIPUNCTURE 06199 02/15/2022 60 [facility] ROUTINE VENIPUNCTURE 62474 02/14/2022 60 [facility] WITHDRAWAL OF ARTERIAL BLOOD 54412 02/14/2022 60 [facility] [place] WITHDRAWAL OF ARTERIAL BLOOD 54151 02/14/2022 60 [facility] [place] ROUTINE VENIPUNCTURE 69137 02/14/2022 60 [facility] ROUTINE VENIPUNCTURE 67184 02/14/2022 60 [facility] Plan of Care Plan of Care Date Source Extracted from:Title: Shortn ess of breath Author: MD Walker Alan L Date: 02/14/22 Impression and Plan Diagnosis 1. Acute respiratory failure #2 acute influenza infection #3 hypertension #4 diabetes #5 history of dyslipidemia #6 history of asthma #7 history of GERD Plan Condition: Improved, Stable. Disposition: Admit. 02/16/2022 60 [facility] Maggie evans Social History Social History Date Source Social History TypeResponse Smoking Status Is there a smoker in the household? No; *Do you have concerns about tobacco use in household? No; 4 or less cigarettes(less than 1/4 pack)/day in last 30 days; Never; *Are you ready to quit? N/A entered on: 02/14/22 Sex Male [facility] Social History TypeResponse Smoking Status Is there a smoker in the household? No; *Do you have concerns about tobacco use in household? No; 4 or less cigarettes(less than 1/4 pack)/day in last 30 days; Never; *Are you ready to quit? N/A entered on: 02/14/22 Sex Male 61 [facility] Maggie evans Social History TypeResponse Smoking Status Is there a smoker in the household? No; *Do you have concerns about tobacco use in household? No; 4 or less cigarettes(less than 1/4 pack)/day in last 30 days; Never; *Are you ready to quit? N/A entered on: 02/14/22 [facility]
--- OUTSIDE RECORDS SUMMARY | 2023-03-22 10:21 | XMS_ITS | Clinical Summary ---
Author Name Unknown Organization [facility] Address [address] [place] [address] Care Team Providers Care Customer Service Supervisor Name Role Phone Elsewhere, Pcp Primary Care Provider Unavailabl e Source Comments Patient records contain information from all sites at [facility]. For routine questions regarding patient records, call [phone] during business hours, M-F 8:00 AM - 5:00 PM Central Time. Record requests for emergency care only can be directed to [phone] at any time.[facility] Allergies Active Allergy Reactions Criticality Noted Date Comments Cat Hair Standardized Allergenic Extract Other (see comments) 05/25/2021 Dog Dander Cough 10/20/2022 House Dust Shortness of breath (Reselect Reaction) 04/10/2014 Pollen Extracts Other (see comments) 06/15/2021 Medications Medication Sig Dispensed Refills Start Date End Date Status albuterol 90 mcg/actuation inhaler 2 puffs as needed. 0 10/29/[address] Active aspirin [address] tablet Take 81 mg by mouth daily. 0 04/10/2014 Active chlorthalidone (HYGROTON) 25 mg tablet Take 25 mg by mouth daily. 0 10/29/2020 Active clobetasoL (TEMOVATE) 0.05 % cream Apply 1 application topically as needed. 0 04/26/2021 Active lisinopriL (PRINIVIL,ZESTRIL) 40 mg tablet Take 40 mg by mouth daily. 0 04/10/2014 Active omeprazole (PriLOSEC) [address] capsule Take 40 mg by mouth at bedtime. 0 04/10/2014 Active multivitamin (MULTIPLE VITAMINS ORAL) Take 1 tablet by mouth daily. 0 Active BD Ultra-Fine Mini Pen Needle 31 gauge x 3/16 needle USE TO INJECT FOUR TIMES DAILY 0 08/21/2021 Active atorvastatin (LIPITOR) 20 mg tablet Take 1 tablet (20 mg total) by mouth daily. 90 tablet 3 05/19/2022 Active carvediloL (COREG) 12.5 mg tablet Take 1 tablet (12.5 mg total) by mouth 2 (two) times a day with meals. 180 tablet 3 07/05/2022 4 Active mometasone 0.033 %-ipratropium 0.02 %-diphenhydramine 0.033 % nasal spray Administer 2 sprays into each nostril 2 (two) times a day. Shake very well prior to each use. 84 mL 3 07/06/2022 Active flash glucose sensor (FreeStyle Stormy 2 Sensor) kit 1 each (1 kit total) every 14 (fourteen) days. 6 each 3 07/21/2022 Active flash glucose scanning reader (FreeStyle Stormy 2 [place]) [facility] Use as directed 1 each 0 07/21/2022 Active dulaglutide (Trulicity) 1.5 mg/0.5 mL pen injector injection Inject 0.5 mL (1.5 mg total) under the skin every 7 (seven) days. 2 mL 11 10/24/2022 Active icosapent ethyL (Vascepa) 1 gram capsule capsule Take 2 capsules (2 g total) by mouth 2 (two) times a day with meals. 360 capsule 3 10/24/2022 Active insulin aspart U-100 (NovoLOG FlexPen) 100 unit/mL (3 mL) injection Inject 15 Units under the skin 3 (three) times a day with meals. 15 mL 0 10/24/2022 Active insulin glargine-yfgn (SEMGLEE) 100 unit/mL (3 mL) injection Inject 60 Units under the skin at bedtime. 15 mL 0 10/24/2022 Active fenofibrate nanocrystallized (TRICOR) 145 mg tablet Take 1 tablet by mouth daily. 0 01/12/2023 Active Encounters Date Type Department Care Team Description 01/26/2023 Clinical Communication Department of Cardiovascular Medicine in [address] [phone] Carroll Estrada M.D., Ph.D. Follow-up (Office visit notes) 01/24/2023 3:15 PM PEST CONTROL SUPERVISOR Office Visit Department of Cardiovascular Medicine in [place], [place] [address] [place] [address] Carroll Estrada M.D., Ph.D. Dysfunction Diastolic (Primary Dx); Morbid Obesity (HCC); Hypertension Essential Primary from Last 3 Months Family History Medical History Relation Name Comments Alcohol abuse Brother Thanh Russell remission Diabetes Brother Thanh Russell insulin Leukemia Brother Thanh Russell several medi cations Alcohol abuse Father Faraz Russell Dementia Father Faraz Russell alzheimers Dementia Father's Brother Faheem Russell alzheim ers Alcohol abuse Mother Laura Russell deceaed Arthritis Mother Laura Russell Hypertension Mother Laura Russell Osteoporosis Mother Laura Russell Diabetes Mother's Sister Chandni Hess Hyperlipidemia Mother's Sister Chandni Hess ADD Son 1 Selvin Kemp adderol Alcohol abuse Son 1 Selvin Kemp 14 years landen n and sober Asthma Son 1 Selvin Contrerason remission Drug abuse Son 1 Selvin Contrerason 14 years clean and sober Hypertension Son 2 Scott Russell medication Sleep apnea Son 2 Scott Russell cpap Relation Name Status Comments Brother Thanh Russell Father Faraz Russell Father's Brother Faheem Russell Mother Laura Russell Mother's Sister Chandni Hess Son 1 Selvin Kemp Son 2 Scott Russell Social History Tobacco Use Types Packs/Day Years Used Date Smoking Tobacco: Never Passive Smoke Exposure: Never Smokeless Tobacco: Never Tobacco Cessation:Counseling Given: Not Answered Alcohol Use Standard Drinks/Week Comments Yes 2 (1 standard drink = 0.6 oz pur e alcohol) Humiliation, Afraid, Rape, and Kick questionnair e Answer Date Recorded Within the last year, have y ou been afraid of your partner or ex-partner? No 09/28/2022 Within the last year, have y ou been humiliated or emotionally abused in other ways by your partner or ex-partner? No Within the last year, have y ou been kicked, hit, slapped, or otherwise physically hurt by your partner or ex-partner? No 09/28/2022 Within the last year, have y ou been raped or forced to have any kind of sexual activity by your partner or ex-partner? No 09/28/2022 Social Connection and Isolat ion Panel [NHANES] Answer Date Recorded In a typical week, how many times do you talk on the phone with family, friends, or neighbors? More than three times a week 05/12/2022 How often do you get togethe r with friends or relatives? Three times a week 05/12/2022 How often do you attend chur ch or bahai services? More than 4 times per year 05/12/2022 Do you belong to any clubs o r organizations such as advent groups, unions, fraternal or athletic groups, or school groups? Yes 05/12/2022 How often do you attend meet ings of the clubs or organizations you belong to? More than 4 times per year 05/12/2022 Are you , , di vorced, , never , or living with a partner? 05/12/2022 AUDIT-C Answer Date Recorded Q1: How often do you have a drink containing alc ohol? Monthly or less 05/12/2022 Q2: How many drinks containi ng alcohol do you have on a typical day when you are drinking? 1 or 2 05/12/2022 Q3: How often do you have si x or more drinks on one occasion? Never 05/12/2022 Overall Financial Resource Strain (CARDIA) Answe r Date Recorded How hard is it for you to pa y for the very basics like food, housing, medical care, and heating? Not hard at all 09/28/2022 [facility] [place] [facility] Occupat ional Health - Occupational Stress Questionnaire Answer Date Recorded Do you feel stress - tense, restless, nervous, or anxious, or unable to sleep at night because your mind is troubled all the time - these days? Only a little 05/12/2022 Exercise Vital Sign Answer Date Recorde d On average, how many days pe r week do you engage in moderate to strenuous exercise (like a brisk walk)? 0 days 05/12/2022 On average, how many minutes do you engage in exercise at this level? 0 min 05/12/2022 Hunger Vital Sign Answer Date Recorded Within the past 12 months, y ou worried that your food would run out before you got the money to buy more. Never true 09/29/19 23 Within the past 12 months, t he food you bought just didn't last and you didn't have money to get more. Never true 09/28/2022 PRAPARE - Transportation Answer Date Re corded In the past 12 months, has l ack of transportation kept you from medical appointments or from getting medications? No 09/10 In the past 12 months, has l ack of transportation kept you from meetings, work, or from getting things needed for daily living? No 09/28/2022 Nutrition Answer Date Recorded Nutrition: EVOO Fat Source Yes 05/12 On average, how many serving s of fruits and vegetables do you eat per day (serving size is equal to 1 cup or approximately the size of a tennis ball)? 2-3 05/12/2022 Dental Answer Date Recorded Dental: Regular Dentist Yes 06/17/19 Employment Answer Date Recorded Employment status Retired 05/12/2022 Housing Stability Answer Date Recorded What is your living situation today? [facility] 09/28/2022 Education Answer Date Recorded What is the highest level of school you have completed or the highest degree you have received? Doctorate 06/16/2021 Sex and Gender Information Value Date Recorded Sex Assigned at Male 06/16/2021 2:26 PM CDT Gender Identity Male 06/16/2021 2:26 PM CDT Sexual Orientation Straight 06/16/2021 2: 26 PM CDT Last Filed Vital Signs Vital Sign Reading Time Taken Comments Blood Pressure 123/71 01/24/2023 3:03 PM PEST CONTROL SUPERVISOR Pulse 77 01/24/2023 3:03 PM PEST CONTROL SUPERVISOR Temperature 37 ??C (98.6 ??F) 10/05/2022 2:20 PM CDT Respiratory Rate - - Oxygen Saturation 98% 06/06/2022 9:25 AM CDT Inhaled Oxygen Concentration - - Weight 106 kg (233 lb 11 oz) 01/24/2023 3:03 PM PEST CONTROL SUPERVISOR Height 175 cm (5' 8.9) 01/24/2023 3:03 PM PEST CONTROL SUPERVISOR Body Mass Index 34.61 01/24/2023 3:03 PM PEST CONTROL SUPERVISOR Plan of Treatment Health Maintenance Due Date Last Done Comments Hepatitis C Screening 1945 Pneumococcal vaccine (65+ ye ars) (3 of 3 - PPSV23 or PCV20) 06/21/2020 06/22/2015, 12/12/2008 Zoster Vaccines (3 of 3) 12/24/2020 10/29/2020, 11/08/2008 Depression Screening (Annual PHQ-2) 03/13/2022 COVID-19 Vaccine (8 - 2022-2 4 season) 2022 10/13/2022, 12/30/2021, 07/05/2021, Additional history exists Potassium Level 05/20/2023 05/19/2022 Sodium Level 05/20/2023 05/19/2022 Creatinine Level (Kidney Fun ction Test) 10/25/2023 10/24/2022, 05/19/2022 DTaP,Tdap,and Td Vaccines (3 - Td or Tdap) 06/20/2027 06/19/2017, 08/17/2007, 03/13/1997 Fall Risk Screen (Annual) Completed 10/05/2022 Influenza Vaccine Completed 12/19/2022, , 02/17/2021, Additional history exists Medical Devices Implanted Type Area Re Recording Mixer Device Identifier Shelf Expiration Date Model / Serial / Lot Bilateral Knee Implant Knee Implant Bilatera l: Knee Care Teams Customer Service Supervisor Relationship Specialty Start Date End Date Elsewhere, Pcp PCP - General Internal Medicine 05/17/22
--- OUTSIDE RECORDS SUMMARY | 2023-03-22 10:21 | XMS_ITS | Encounter Summary ---
Author Name Unknown Organization [facility] Address [address] [place] [address] Care Team Providers Care Salesperson Burial Needs Name Role Phone Elsewhere, Pcp Primary Care Provider Unavailabl e Reason for Visit * Reason Onset Date Comments Follow-up 01/26/2023 Office visit not es Encounter Details Date Type Department Care Team (Latest Contact Info) Description 01/26/2023 Clinical Communication Department of Cardiovascular Medicine in [place], [place] [address] [place] [address] Carroll Estrada M.D., Ph.D. [address] [place] [address] Follow-up (Office visit notes) Social History Tobacco Use Types Packs/Day Years Used Date Smoking Tobacco: Never Passive Smoke Exposure: Never Smokeless Tobacco: Never Alcohol Use Standard Drinks/Week Comments Yes 2 [...] 05/12/2022 How often do you attend chur or yarsani services? More than 4 times per year 05/12/2022 Do you belong to any clubs o r organizations such as episcopal groups, unions, fraternal or athletic groups, or [...] and heating? Not hard at all 09/28/2022 [facility] ionmo Health - Occupational Stress Questionnaire Answer Date [...] money to buy more. Never true 09/29/19 Within the past 12 months, t he [...] your living situation today? [facility] a [facility] place to live 09/28/2022 Education Answer Date Recorded What is the highest level of school you have completed or the highest degree you have received? Doctorate 06/16/2021 Sex and Gender Information Value Date Recorded Sex Assigned at Male 06/16/2021 2:26 PM CDT Gender Identity Male 06/16/2021 2:26 PM CDT Sexual Orientation Straight 06/16/2021 2: 26 PM CDT documented as of this encounter Plan of Treatment Not on file documented as of this encounter Visit Diagnoses Not on filedocumented in this encounter Care Teams Salesperson Burial Needs Relationship Specialty Start Date End Date Elsewhere, Pcp PCP - General Internal Medicine 05/17/22 documented as of this encounter
--- OUTSIDE RECORDS SUMMARY | 2023-03-22 10:21 | XMS_ITS ---
Author Name Unknown Organization [facility] Address [address] [place] [address] Care Team Providers Care Field Collector Name Role Phone Unavailable Unavailable Unavailable Surgery Details Not on file Complications Check Surgery Details section. Procedure Estimated Blood Loss Check Surgery Details section. Procedure Findings Check Surgery Details section. Procedure Specimens Taken Check Surgery Details section.
--- OUTSIDE RECORDS SUMMARY | 2023-03-22 10:21 | XMS_ITS | Encounter Summary ---
Author Name Unknown Organization [facility] Address [address] [place] [id number] Care Team Providers Care Reading Tutor Name Role Phone Elsewhere, Pcp Primary Care Provider Unavailabl e Reason for Referral * Outpatient (Routine) - Authorized Specialty Diagnoses / Procedures Referred By Fern cisneros Referred To Contact Cardiovascular Disease Carroll Estrada M.D., Ph.D. [address] [place] [phone] [facility] Referral ID Status Reason Start Date Expiration Date V isits Requested Visits Authorized [id number] Authorized 01/29/2023 01/28/2026 1 1 OYEE PLACEMENT SPECIALIST Reason for Visit * Outpatient (Routine) - Closed Specialty Diagnoses / Procedures Referred By Fern cisneros Referred To Contact Cardiovascular Disease Carroll Estrada M.D., Ph.D. [address] [place] [phone] [facility] Referral ID Status Reason Start Date Expiration Date Visits Re quested Visits Authorized [id number] Closed 07/05/2022 07/04/2025 1 1 Encounter Details Date Type Department Care Team (Latest Contact Info) Description 01/24/2023 3:15 PM EMPLOYEE PLACEMENT SPECIALIST Office Visit Department of Cardiovascular Medicine in [place], [place] [address] [place] [phone] Carroll Estrada M.D., Ph.D. [address] [place] [address] Dysfunction Diastolic (Primary Dx); Morbid Obesity (HCC); Hypertension Essential Primary Social History Tobacco Use Types Packs/Day Years [...] week 05/12/2022 How often do you attend [facility] or religion services? More than 4 times per year 05/12/2022 Do you belong to any clubs o r organizations such as orthodox groups, unions, fraternal or athletic groups, or [...] and heating? Not hard at all 09/28/2022 [facility] - Occupational Stress Questionnaire Answer Date [...] your living situation today? I have a [facility] place to live 09/28/2022 Education Answer Date [...] Comments Blood Pressure 123/71 01/24/2023 3:03 PM EMPLOYEE PLACEMENT SPECIALIST Pulse 77 01/24/2023 3:03 PM EMPLOYEE PLACEMENT SPECIALIST Temperature - - Respiratory Rate - - Oxygen Saturation - - Inhaled Oxygen Concentration - - Weight 106 kg (233 lb 11 oz) 01/24/2023 3:03 PM EMPLOYEE PLACEMENT SPECIALIST Height 175 cm (5' 8.9) 01/24/2023 3:03 PM EMPLOYEE PLACEMENT SPECIALIST Body Mass Index 34.61 01/24/2023 3:03 PM EMPLOYEE PLACEMENT SPECIALIST documented in this encounter Progress Notes * Carroll Estrada M.D., Ph.D. - 01/24/2023 3:15 PM CST Images from the original note were not included. GENERAL CARDIOLOGY CLINIC NOTE SUBJECTIVE Mr. Chavo Russell is a 77 y.o. who is following up in CV clinic for fatigue and dyspnea on exertion. Past medical history includes T2DM insulin dependent, VANESSA, HLD, exercise induced asthma, HTN, obesity (BMI > 30), hx of aortic root dilatation, asymptomatic right frontal falcine meningioma. Mr. Russell states his dyspnea and fatigue have improved. Attributes this to losing weight after starting Trulicity and improving blood sugars. He recently moved to a townhouse which required some exertion with respect to lifting and carrying weights. He did not have issues accomplishing these tasks. Now that he settled into his new house, he would like to start a daily exercise. I have reviewed and updated the following: Past Medical History, Family History, Social History, and Allergies. Active Home Medications Medication Sig Taking fenofibrate nanocrystallized (TRICOR) 145 mg tablet Take 1 tablet by mouth daily. Yes albuterol 90 mcg/actuation inhaler 2 puffs as needed. aspirin [address] tablet Take 81 mg by mouth daily. atorvastatin (LIPITOR) 20 mg tablet Take 1 tablet (20 mg total) by mouth daily. BD Ultra-Fine Mini Pen Needle 31 gauge x 3/16 needle USE TO INJECT FOUR TIMES DAILY carvediloL (COREG) 12.5 mg tablet Take 1 tablet (12.5 mg total) by mouth 2 (two) times a day with meals. chlorthalidone (HYGROTON) 25 mg tablet Take 25 mg by mouth daily. clobetasoL (TEMOVATE) 0.05 % cream Apply 1 application topically as needed. dulaglutide (Trulicity) 1.5 mg/0.5 mL pen injector injection Inject 0.5 mL (1.5 mg total) under theskin every 7 (seven) days. flash glucose scanning reader (FreeStyle Stormy 2 [place]) [facility] Use as directed flash glucose sensor (FreeStyle Stormy 2 Sensor) kit 1 each (1 kit total) every 14 (fourteen) days. icosapent ethyL (Vascepa) 1 gram capsule capsule Take 2 capsules (2 g total) by mouth 2 (two) timesa day with meals. insulin aspart U-100 (NovoLOG FlexPen) 100 unit/mL (3 mL) injection Inject 15 Units under the skin 3 (three) times a day with meals. insulin glargine-yfgn (SEMGLEE) 100 unit/mL (3 mL) injection Inject 60 Units under the skin at bedtime. lisinopriL (PRINIVIL,ZESTRIL) 40 mg tablet Take 40 mg by mouth daily. mometasone 0.033 %-ipratropium 0.02 %-diphenhydramine 0.033 % nasal spray Administer 2 sprays into each nostril 2 (two) times a day. Shake very well prior to each use. multivitamin (MULTIPLE VITAMINS ORAL) Take 1 tablet by mouth daily. omeprazole (PriLOSEC) [address] capsule Take 40 mg by mouth at bedtime. REVIEW OF SYSTEMS Pertinent items are noted in HPI; all other review of systems was negative. OBJECTIVE VITAL SIGNS BP 123/71 Pulse 77 Ht 175 cm Wt 106 kg BMI 34.61 kg/m?? PHYSICAL EXAMINATION Constitutional: Oriented to person, place, and time. Appears well-developed and well-nourished. HENT: Conjunctiva not injected Heart: Normal rate, regular rhythm. Normal S1/S2. No murmurs, rubs or gallops. Lungs: Effort normal and breath sounds normal. No respiratory distress. No wheeze, rales or crackles. Abdominal: Soft, non-tender, non-distended. Normoactive bowel sounds. Skin: Skin is warm and dry. No bruising or rashes noted. Extremities: trace lower extremity edema DIAGNOSTICS Labs (05/19/2022) Hg 13.3 Plt 195 Cr 1.47 TSH 4.8, T4 1.1 ECG (05/19/2022): sinus rhythm, right bundle branch block Echo Stress 06/29/2021 Final Impressions: 1. Negative stress echo for ischemia. 2. Grossly normal rest screening echo. 3. See separate report for EKG interpretation. 4. During stress exam the patient developed no significant symptoms. 5. Maximum stress test with 96.0% of age predicted maximum heart rate achieved. 6. Post stress, normal left ventricular size, normal global systolic function with an estimated EF of 70 to 75%. Cardiac catheterization (2003): normal coronary artery disease, LV EF 60%, no significant mitral regurgitation 24 Holter (05/20/22) 1. The basic rhythm was sinus with a right bundle branch morphology. The total analyzed time was 23h 30m. The heart rate varied from 64 to 121 bpm. The average HR was 84 bpm. 2. Premature ventricular complexes were noted singly, in trigeminy, and in pairs. There were 1,431 PVCs recorded with a PVC burden of 1%. 3. Premature supraventricular complexes were noted singly, bigeminy, in pairs, and in four 3-15 beat atrial runs with a maximum rate of 179 bpm . There were 6,709 PACs recorded with a PAC burden of 6%. 4. A total of 7 symptomatic events were noted, which included tiredness. The basic rhythm was sinus. The heart rate varied from 89 to 118 bpm. Premature ventricular complexes were noted singly, andin one pair. Premature supraventricular complexes were noted singly and in one atrial run before, during, and after the events. TTE (05/27/22) 1. Normal left ventricular chamber size, no regional wall motion abnormalities, calculated 2-D linear ejection fraction 69%. 2. Grade 1/3 left ventricular diastolic dysfunction, consistent with low to normal left ventricularfilling pressure at rest. 3. Borderline enlarged right ventricular chamber size, borderline reduced systolic function, estimated right ventricular systolic pressure 26 mmHg (right atrial pressure of 5 mmHg). 4. No hemodynamically significant valvular heart disease. 5. No pericardial effusion PET CT Cardiac Perfusion Rest and Stress (07/05/22) ASSESSMENT / PLAN Diastolic dysfunction TTE (05/2022): LVEF 69% with normal LV size, no RWMA. Grade 1/3 diastolic dysfunction, E/A 0.63, E/e' 5.6. Borderline reduced RV function with RVSP [address] Stress: Normal MPI at rest and with stress. Global MFR 2.5. T2DM 10/2022: TG 256, TC 126, LDL 56 HTN HLD Obesity, BMI 35 Mr. Russell is seen in CV clinic for follow up. His symptoms of fatigue and dyspnea has improved with weight loss, in particular after changing his diet and starting a GLP-1 receptor agonist. His blood pressures in clinic is well controlled and similar to what he is at home. He should continue monitoring his blood pressures to ensure he is within a goal of 130/80. I also encouraged him to continue losing weight with medications, adopting a heart healthy diet and regular exercise. I personally spent 45 minutes in care of the patient today. Time includes both non [id number] patient care. Electronically signed by: Carroll Estrada M.D., Ph.D. OYEE PLACEMENT SPECIALIST documented in this encounter Plan of Treatment Scheduled Referrals Name Type Priority Associated Diagnoses Order Schedule Cardiovascular Disease office visit (clinic) General Outpatient Referral Routine Expected: 01/30/2024 (Approximate), Expires: 05/01/2024 documented as of this encounter Visit Diagnoses Diagnosis Dysfunction Diastolic- Primary Morbid Obesity (HCC) Hypertension Essential Primary documented in this encounter Care Teams Reading Tutor Relationship Specialty Start Date End Date Elsewhere, Pcp PCP - General Internal Medicine 05/17/22 documented as of this encounter
--- OUTSIDE RECORDS SUMMARY | 2023-03-22 10:21 | XMS_ITS | Encounter Summary ---
Author Name Unknown Organization [facility] Address [address] [place] [id number] Care Team Providers Care Life Teacher Name Role Phone Elsewhere, Pcp Primary Care Provider Unavailabl e Reason for Referral * Outpatient (Routine) - Authorized Specialty Diagnoses / Procedures Referred By Fern cisneros Referred To Contact Endocrinology Diagnoses Diabetes Mellitus Type 2 (HCC) Sky Mai M.B.B.S., M.D. [address] [place] [address] [facility] Referral ID Status Reason Start Date Expiration Date V isits Requested Visits Authorized [id number] Authorized 10/24/2022 10/23/2025 1 1 * Medication Prior Authorization - Authorized Specialty Diagnoses / Procedures Referred By Fern cisneros Referred To Contact Sky Mai M.B.B.S., M.D. [address] [place] [address] Referral ID Status Reason Start Date Expiration Date V isits Requested Visits Authorized [id number] Authorized 10/26/2022 10/27/2023 1 1 Reason for Visit * Outpatient (Routine) - Closed Specialty Diagnoses / Procedures Referred By Fern t Referred To Contact Endocrinology Diagnoses Diabetes Mellitus Type 2 (HCC) Sky Mai M.B.B.S., M.D. [address] [place] [address] [facility] Referral ID Status Reason Start Date Expiration Date Visits Re quested Visits Authorized [id number] Closed 07/21/2022 07/20/2025 1 1 Encounter Details Date Type Department Care Team (Latest Contact Info) Description 10/24/2022 2:30 PM CDT Office Visit Division of Endocrinology in [place], [place] [address] [place] [phone] Sky Mai M.B.B.S., M.D. [address] [place] [phone] Diabetes Mellitus Type 2 (HCC) Social History Tobacco Use Types Packs/Day Years [...] week 05/12/2022 How often do you attend [facility] or jewish services? More than 4 times per year 05/12/2022 Do you belong to any clubs o r organizations such as yazidi groups, unions, fraternal or athletic groups, or [...] and heating? Not hard at all 09/28/2022 [facility] - Occupational Stress [...] your living situation today? I have a [facility] place to live 09/28/2022 Education Answer [...] Sign Reading Time Taken Comments Blood Pressure 135/50 10/24/2022 2:17 PM CDT Pulse 67 10/24/2022 2:17 PM CDT Temperature - - Respiratory Rate - - Oxygen Saturation - - Inhaled Oxygen Concentration - - Weight - - Height - - Body Mass Index - - documented in this encounter Progress Notes * Amadeo Barnes M.B., B.Ch., B.A.O. - 10/24/2022 2:30 PM CDT SUBJECTIVE CHIEF COMPLAINT / REASON FOR VISIT Chavo Russell is a 77 y.o. male who presents for follow up. HISTORY OF PRESENT ILLNESS Background history: #1 Type 2 diabetes mellitus - insulin requiring #2 Obesity - BMI 36.5 #3 Hyperlipidemia #4 HFpEF #5 VANESSA - on CPAP #6 Hypertension #7 Exercise-induced asthma Relevant home meds: - dulaglutide 0.75 mg once a week SQ - carvedilol 12.5 mg BID - atorvastatin 20 mg daily - fenofibrate 145 mg daily - chlorthalidone 25 mg daily - aspirin 81 mg daily - lisinopril 40 mg daily - insulin glargine-yfgn (Semglee) 70 U at bedtime - insulin aspart (NovoLog) 20 U TID with meals Interval history: Seen Dr. Mai (virtual visit) on 07/21/22: - diagnosed with diabetes 16 years ago - was started on metformin and insulin was added about 7-8 years ago - Metformin was discontinued 4-5 years ago, likely due to CKD - now on a basal bolus insulin regimen taking 70 units of glargine at night and pre meal NovoLog with XYZ doses of 31, 35 in 27 units respectively - He regularly checks his blood sugars 4 times a day and reports that his fasting and pre lunch andsupper readings are in the 140-150 range while post supper they are generally around 190 - His hemoglobin A1c 7.7%. - With respect to chronic complications he gets regular eye exams and was not told to have retinopathy. He has CKD with GFR in the 50s, likely multifactorial. He also has symptoms of peripheral neuropathy. No known ASCVD. He has evidence of subclinical atherosclerosis and diastolic heart failure. - has longstanding combined hyperlipidemia with maximum serum triglycerides of over 1200. No history of pancreatitis. He is on combination lipid-lowering therapy with fenofibrate and atorvastatin 20 mg. Tolerating it fairly well. Most recent serum triglycerides are around 400 with non HDL cholesterol of 148. - plan: - decided to start dulaglutide 0.75 mg once a week. He will decrease his prandial insulin to 20 units with each meal. I have discussed with him how to make further adjustments based on the blood sugars. If he notes glucose readings below 100 he will decrease by 5 units at a time. Similarly if he notes fasting blood sugars below 100, he will decrease his long-acting insulin by 10 units. - combined hyperlipidemia with previous severe hypertriglyceridemia. Anticipate improvement with weight loss. For now will continue with combination lipid- lowering therapy Currently: Did not bring glucose monitor with him. Average readings at home: - morning - 110-120 mg/dL - afternoon - about 130 mg/dL - dinner - about 140 mg/dL - night - about 150-180 mg/dL Has not had to change NovoLog dose much - once in last 3 months Has podiatry appointment in the near future - has yearly checks Eye check done 6 weeks ago - was told all is well. Checks yearly. Has been having continued symptoms of fatigue and shortness of breath on exertion: - when going upstairs, when walking - since becoming more physical active, he has found that his exercise tolerance is improving - current exercise regimen: - 3 times a week - walk 2 miles but slow walk No other symptoms / signs of heart failure. Does have very minor leg swelling at the end of the day. Weight: - lost 6 lbs of weight in 3 months - started well - has now plateaued Diet: - doing better with portion control - doing more Mediterranean diet Investigations: Labs (10/24/22): - creatinine 1.62 mg/dL (was 1.47 mg/dL 5 months ago) - HbA1c 7.1% (was 7.7% 5 months ago) - Lipid panel: - total cholesterol 126 mg/dL - triglycerides 256 mg/dL (was 422 mg/dL 5 months ago) - HDL 29 mg/dL - LDL 56 mg/dL OBJECTIVE Vitals: - BP: 135/50 mmHg - Pulse: 67 BPM PHYSICAL EXAM General: Comfortable. Not in respiratory distress. He has diminished peripheral subcutaneous fast and mostly truncal obesity. Eyes: ELIZABETH. Sclera anicteric. No corneal arcus. No xanthelasma. HEENT: Normocephalic. Atraumatic. Heart: Heart sounds 1 & 2 present. No added sounds. No murmurs. No raised JVP. No carotid bruitbilaterally. Lungs: Clear vesicular breath sounds bilaterally. Abdomen: Soft and non-tender. Bowel sounds present. Mental: Orientated in time, place and person. Extremities: No lower limb edema. DP & PT pulse 4+ bilaterally. No tendon xanthoma. Monofilament test - left toe impaired sensation, else normal ASSESSMENT / PLAN #1 Type 2 diabetes mellitus - insulin requiring #2 Obesity - BMI 36.5 #3 Hyperlipidemia #4 Fatigue and shortness of breath with exertion - more likely deconditioning than HFpEF #5 VANESSA - on CPAP #6 Hypertension #7 Exercise-induced asthma The patient is doing well. His diabetes control is adequate. He has had improvement in his HbA1c aswell as his triglyceride levels, which can be attributed to the GLP-1 analog. The weight loss is also contributing to the lowering of triglycerides. We stressed the importance of continued caloric restriction as well as increasing his exercise activity to promote further weight loss. We will plan to increase the Trulicity from 0.75 mg every week to 1.5 mg every week for 4 weeks. If he is doing well, we can aim to increase it to 4 mg every week. With the increase in Trulicity, we will reduce his NovoLog from 20 U TID with meals to 15 U TID with meals. We will also reduce his bedtime Semglee from 70 U at bedtime to 60 U at bedtime. Given the increasing creatinine, we will stop the fenofibrate. In its place, we will stop his OTC fish oil supplement and start him on Vascepa 2 g BID. We will plan to follow up in 1 year. SUMMARY OF RECOMMENDATIONS: Increase Trulicity from 0.75 mg every week to 1.5 mg every week for 4 weeks. If doing well, will plan to increase it to 3 mg every week Reduce NovoLog from 20 U TID with meals to 15 U TID with meals Reduce Semglee from 70 U at bedtime to 60 U at bedtime Stop fish oil supplement. Will start Vascepa 2 g BID Stop fenofibrate Follow up in 1 year The patient was discussed and seen by Dr. Mai. * Sky Mai M.B.B.S., M.D. - 10/24/2022 2:30 PM CDT I saw and evaluated the patient, participating in the zaidi portions of the service. I reviewed the resident/fellow???s note. I agree with the resident/fellow???s findings and plan. Briefly, Mr. Russell longstanding insulin-requiring type 2 diabetes with combined hyperlipidemia and was seen for follow-up after having been started on a GLP 1 analog 3 months ago. He is tolerating Trulicity well and has lost weight and A1c has improved from 7.7-7.1%. Serum triglycerides have also decreased from around 400-200. Physical exam is significant for truncal obesity and diminished peripheral subcutaneous fat. We have discussed the critical importance of intensifying efforts at weight loss to decrease steatosis. We will increase Trulicity as tolerated up to 3 mg. We will decrease prandial insulin to 15 units and further if he is having hypoglycemia during the day. We have also discussed how to make adjustments to his basal insulin. For the combined hyperlipidemia, we have recommended stopping fenofibrate in view of elevated creatinine. He can change OTC fish oil to Vascepa which has been shown to reduce cardiovascular risk. He will continue regular follow-up with his PCP and see us on an annual basis or as required. documented in this encounter Plan of Treatment Scheduled Orders Name Type Priority Associated Diagnoses Orde r Schedule Alkaline Phosphatase Lab Routine Diabetes Mellitus Type 2 (HCC) Expected: 10/25/2023 (Approximate), Expires: 01/25/2024 ALT (Alanine Aminotransferase) Lab Routine Diabetes Mellitus Type 2 (HCC) Expected: 10/25/2023 (Approximate), Expires: 01/25/2024 AST (Aspartate Aminotransferase) Lab Routine Diabetes Mellitus Type 2 (HCC) Expected: 10/25/2023 (Approximate), Expires: 01/25/2024 CBC without Differential Lab Routine Diabetes Mellitus Type 2 (HCC) Expected: 10/25/2023 (Approximate), Expires: 01/25/2024 Creatinine with Estimated GFR Lab Routine Diabetes Mellitus Type 2 (HCC) Expected: 10/25/2023 (Approximate), Expires: 01/25/2024 Glucose, Fasting Lab Routine Diabetes Mellitus Type 2 (HCC) Expected: 10/25/2023 (Approximate), Expires: 01/25/2024 Hemoglobin A1c Lab Routine Diabetes Mellitus Type 2 (HCC) Expected: 10/25/2023, Expires: 10/25/2023 Lipid Panel Lab Routine Diabetes Mellitus Type 2 (HCC) Expected: 10/25/2023 (Approximate), Expires: 01/25/2024 Albumin, Random, Urine Lab Routine Diabetes Mellitus Type 2 (HCC) Expected: 10/25/2023 (Approximate), Expires: 01/25/2024 Scheduled Referrals Name Type Priority Associated Diagnoses Order Schedule Endocrinology office visit (clinic) Outpatient Referral Routine Diabetes Mellitus Type 2 (HCC) Expected: 10/25/2023 (Approximate), Expires: 01/25/2024 documented as of this encounter Visit Diagnoses Diagnosis Diabetes Mellitus Type 2 (HCC) documented in this encounter Care Teams Life Teacher Relationship Specialty Start Date End Date Elsewhere, Pcp PCP - General Internal Medicine 05/17/22 documented as of this encounter
--- OUTSIDE RECORDS SUMMARY | 2023-03-22 10:21 | XMS_ITS | Referral Summary ---
Author Name Unknown Organization [facility] Address [address] [place] [address] Care Team Providers Care Photographic Process Worker Name Role Phone Elsewhere, Pcp Primary Care Provider Unavailabl e Source Comments Patient records contain information from all sites at [facility]. For routine questions regarding patient records, call [phone] during business hours, M-F 8:00 AM - 5:00 PM Central Time. Record requests for emergency care only can be directed to [phone] at any time.[facility] Encounters Date Type Department Care Team Description 01/26/2023 Clinical Communication Department of Cardiovascular Medicine in [place], [place] [address] [place] [address] Carroll Estrada M.D., Ph.D. 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 Dysfunction Diastolic (Primary Dx); Morbid Obesity (HCC); Hypertension Essential Primary from Last 3 Months Allergies Active Allergy Reactions Criticality Noted Date [...] flash glucose scanning reader (FreeStyle Stormy 2 [place]) [facility] Use as directed 1 each 0 07/21/2022 [...] tablet by mouth daily. 0 01/12/2023 Active Social History Tobacco Use Types Packs/Day Years [...] often do you attend chur ch or anglican services? More than 4 times per year 05/12/2022 Do you belong to any clubs o r organizations such as anglican groups, unions, fraternal or athletic groups, or [...] and heating? 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
--- OUTSIDE RECORDS SUMMARY | 2023-03-22 10:22 | XMS_ITS | Encounter Summary ---
Author Name Unknown Organization [facility] Address [address] [place] [address] Care Team Providers Care Inspector Publications Name Role Phone Elsewhere, Pcp Primary Care Provider Unavailabl e Reason for Visit * Reason Onset Date Comments Pre-visit Intake 10/03/2022 Encounter Details Date Type Department Care Team (Latest Contact Info) Description 10/03/2022 2:30 PM CDT Clinical Communication Virtual Review in [place], [place] [address] [place] [address] Pre-visit Intake Social History Tobacco Use Types Packs/Day Years [...] often do you attend chur ch or mandaen services? More than 4 times per year 05/12/2022 Do you belong to any clubs o r organizations such as roman catholic groups, unions, fraternal or athletic groups, or [...] and heating? Not hard at all 09/28/2022 [facility] - Occupational Stress [...] your living situation today? [facility] 09/28/2022 Education Answer Date [...] on filedocumented in this encounter Care Teams Inspector Publications Relationship Specialty Start Date End Date Elsewhere, Pcp PCP - General Internal Medicine 05/17/22 documented as of this encounter
--- OUTSIDE RECORDS SUMMARY | 2023-03-22 10:22 | XMS_ITS | Encounter Summary ---
Author Name Unknown Organization [facility] Address [address] [place] [id number] Care Team Providers Care Specialties Operator Name Role Phone Elsewhere, Pcp Primary Care Provider Unavailabl e Reason for Visit * Outpatient (Routine) - Closed Specialty Diagnoses / Procedures Referred By Fern cisneros Referred To Contact Pulmonary Medicine Diagnoses Drip Post Nasal Rhinosinusitis Chronic Rhinitis Allergic Procedures PUL RHINOLARYNGOSCOPY PUL PROC RHINOSCOPY Lloyd Trevino Jr., M.D. [address] [place] [phone] Karen Gomez M.D. [address] [place] [phone] Referral ID Status Reason Start Date Expiration Date Visits Re quested Visits Authorized [id number] Closed 07/06/2022 07/06/2022 1 1 Encounter Details Date Type Department Care Team (Latest Contact Info) Description 07/06/2022 10:58 AM CDT - 07/06/2022 11:59 PM CDT Hospital Encounter Division of Pulmonary Medicine in [place], [place] [address] [place] [address] [phone] Mindy Haskins M.D. [address] [place] [address] [phone] Drip Post Nasal; Rhinosinusitis Chronic; Rhinitis Allergic Discharge Disposition: Home or Self Care Social History Tobacco Use Types Packs/Day Years Used Date Smoking Tobacco: Never Passive Smoke Exposure: Never Smokeless Tobacco: Never Alcohol Use Standard Drinks/Week Comments Yes 2 (1 standard drink = 0.6 oz pur e alcohol) Humiliation, Afraid, Rape, and Kick questionnair e Answer Date Recorded Within the last year, have y ou been afraid of your partner or ex-partner? No 05/12/2022 Within the last year, have y ou been humiliated or emotionally abused in other ways by your partner or ex-partner? No Within the last year, have y ou been kicked, hit, slapped, or otherwise physically hurt by your partner or ex-partner? No 05/12/2022 Within the last year, have y ou been raped or forced to have any kind of sexual activity by your partner or ex-partner? No 05/12/2022 Social Connection and Isolat ion Panel [NHANES] Answer Date Recorded In a typical week, how many times do you talk on the phone with family, friends, or neighbors? More than three times a week 05/12/2022 How often do you get togethe r with friends or relatives? Three times a week 05/12/2022 How often do you attend chur or buddhist services? More than 4 times per year 05/12/2022 Do you belong to any clubs o r organizations such as alevism groups, unions, fraternal or athletic groups, or [...] care, and heating? Not hard at all 05/12/2022 [facility] - Occupational Stress Questionnaire Answer Date [...] the money to buy more. Never true 05/13/19 23 Within the past 12 months, t he food you bought just didn't last and you didn't have money to get more. Never true 05/12/2022 PRAPARE - Transportation Answer Date Re corded In the past 12 months, has l ack of transportation kept you from medical appointments or from getting medications? No 04/2022 In the past 12 months, has l ack of transportation kept you from meetings, work, or from getting things needed for daily living? No 05/12/2022 Housing Stability Vital Sign Answer Nelson e Recorded In the last 12 months, was t here a time when you were not able to pay the mortgage or rent on time? No 05/12/2022 In the last 12 months, how many places have you lived? 1 05/12/2022 In the last 12 months, was t here a time when you did not have a steady place to sleep or slept in a retirement (including now)? No 05/12/2022 Nutrition Answer Date Recorded Nutrition: EVOO Fat Source Yes 05/12 On average, how many serving s of fruits and vegetables do you eat per day (serving size is equal to 1 cup or approximately the size of a tennis ball)? 2-3 05/12/2022 Dental Answer Date Recorded Dental: Regular Dentist Yes 06/17/19 Employment Answer Date Recorded Employment status Retired 05/12/2022 Education Answer Date Recorded What is the [...] Start Date End Date albuterol 90 mcg/actuation inhaler 2 puffs as needed. 0 10/29/[address] tablet Take 81 mg by mouth daily. 0 04/10/2014 atorvastatin (LIPITOR) 20 mg tablet Take 1 tablet (20 mg total) by mouth daily. 90 tablet 3 05/19/2022 BD Ultra-Fine Mini Pen Needle 31 gauge x 3/16 needle USE TO INJECT FOUR TIMES DAILY 0 08/21/2021 carvediloL (COREG) 12.5 mg tablet Take 1 tablet (12.5 mg total) by mouth 2 (two) times a day with meals. 180 tablet 3 07/05/2022 07/05/2023 chlorthalidone (HYGROTON) 25 mg tablet Take 25 mg by mouth daily. 0 10/29/2020 clobetasoL (TEMOVATE) 0.05 % cream Apply 1 application topically as needed. 0 04/26/2021 lisinopriL (PRINIVIL,ZESTRIL) 40 mg tablet Take 40 mg by mouth daily. 0 04/10/2014 mometasone 0.033 %-ipratropium 0.02 %-diphenhydramine 0.033 % nasal spray Administer 2 sprays into each nostril 2 (two) times a day. Shake very well prior to each use. 84 mL 3 07/06/2022 multivitamin (MULTIPLE VITAMINS ORAL) Take 1 tablet by mouth daily. 0 omeprazole (PriLOSEC) [address] capsule Take 40 mg by mouth at bedtime. 0 04/10/2014 docosahexaenoic acid/epa (FISH OIL ORAL) Take 1,200 mg by mouth 2 (two) times a day. 0 10/24/2022 fenofibrate nanocrystallized (TRICOR) 145 mg tablet Take 145 mg by mouth daily. 0 04/10/2014 10/24/2022 fluticasone propionate (FLONASE) 50 mcg/actuation nasal spray Administer 2 sprays into each nostril as needed. 0 04/10/2014 10/03/2022 insulin aspart U-100 (NovoLOG FlexPen) 100 unit/mL (3 mL) injection 20 Units 3 (three) times a day. 0 05/05/2021 10/24/2022 insulin glargine-yfgn 100 unit/mL (3 mL) insulin pen Inject 70 Units under the skin at bedtime. 0 03/12/2021 10/24/2022 niacin (SLO-NIACIN) 500 mg ER tablet Take 500 mg by mouth daily. 0 10/03/2022 sodium chloride-sodium bicarbonate (NEILMED SINUS RINSE) nasal rinse Administer 1 Application into each nostril as needed for congestion. Use water that is either sterile, distilled, or previously boiled for preparations; do not use tap water. 1 each 0 07/06/2022 01/24/2023 documented as of this encounter Procedure Notes * Mindy Haskins M.D. - 07/06/2022 11:00 AM CDTAssociated Order(s): PUL Rhinolaryngoscopy Pre-Procedure Diagnose(s): Drip Post Nasal; Rhinosinusitis Chronic; Rhinitis Allergic Post-Procedure Diagnose(s): Drip Post Nasal; Rhinosinusitis Chronic; Rhinitis Allergic PUL Rhinolaryngoscopy Performed by: Mindy Haskins M.D. Authorized by: Lloyd Trevino Jr., M.D. PROCEDURE DETAILS Indications: sino-nasal symptoms Medication: none CONSENT Consent obtained: verbal Consent given by: patient The benefits, risks and alternatives to the procedure and the potential need for sedation or anesthesia as well as the names, roles, and responsibilities of healthcare team members performing significant interventional tasks were discussed with the patient and/or decision maker. UNIVERSAL PROTOCOL All relevant documentation and testing were reviewed and available. All required blood products, implants, devices and or special equipment were made available as applicable. Pre-procedure verification was conducted and the correct site was marked if required. A fire risk assessment was done as applicable. The procedural time-out to verify correct patient, correct side/site, and procedure was conducted prior to performing the procedure and confirmed in a procedural pause. SEDATION / ANESTHESIA Anesthesia method: topical application Topical application type: lidocaine Comments: Scope was inserted through the nares bilaterally. There was bilateral turbinate congestion and stranding of clear viscid mucus. Between the turbinates there was a thicker morton mucus that appeared to be draining from the location of the middle meatus, and therefore likely the maxillary sinuses bilaterally. No obvious surgical changes noted in these areas. There was mild-moderate pooling of secretions in the . Vallecula and piriform sinuses clear. Vocal cords move normally. Erythema of the arytenoids but no significant edema. No purulence secretions to suggest infection Impression: #1 Chronic rhinosinusitis We did discuss a trial of nasal irrigation with Sebastien med sinus rinse. He has done nasal irrigation in the past. We did discuss using distilled water that has been heated, or tap water that has boiledand then been allowed to cool, to reduce the risk of introducing infection. I have also prescribed our Aleman triple spray. This is specially compounded to treat the excess mucus in the back of the nose (nasopharynx). It consists of three medications - diphenhydramine, ipratropium bromide and mometasone. Ipratropium bromide is not absorbed into the body and stays topical. It is a muscarinic receptor trent and blocks the goblet cells & nerve fibers responsible for mucus production and nerve associated nasal swelling i.e. cholinergic or vasomotor rhinitis. These goblet cells are especially numerous in the posterior third of the nasal passage. This will treat the nasal blockage and backward drainage of non-allergic rhinitis. Diphenhydramine is an anti-histamine that blocks allergic reactions. It is low in dosage and will treat the sneezing, nose itching and runny nose of allergic rhinitis or hayfever. Mometasone is a glucocorticosteroid that is minimally absorbed into the body. It reduces the inflammation permanently over time. It decongests the nasal passages and is effective for allergic and non-allergic rhinitis. It is unclear whether the cough is brought about by the inflammation of the lining of the nose (rhinitis) or whether the mucus is directly causing the irritation in the larynx or voice box as it drips down. SInce the common path in allergic and non-allergic rhinitis associated cough is the postnasal drip, this solution is effective for both situations. If the Aleman triple spray is not covered by his insurance and too expensive he could try doing the nasal irrigation followed by his current Flonase b.i.d. otherwise the Aleman triple spray will replace the Flonase. If cough/sinus problems persist would recommend budesonide ampule in the nasal irrigation fluid, and CT sinus. If CT sinus shows significant abnormalities would consider ENT consult for potential surgery. documented in this encounter Plan of Treatment Not on file documented as of this encounter Procedures Procedure Name Priority Date/Time Associated Diagnosis Comments PUL RHINOLARYNGOSCOPY Routine 07/06/2022 11:00 AM CDT Drip Post Nasal Rhinosinusitis Chronic Rhinitis Allergic documented in this encounter Results * PUL RHINOLARYNGOSCOPY (07/06/2022 11:00 AM CDT) Narrative MMODAL - 07/06/2022 11:00 AM CDT Mindy Haskins M.D. ? 07/06/2022 11:35 AM PUL Rhinolaryngoscopy Performed by: Mindy Haskins M.D. Authorized by: Lloyd Trevino Jr., M.D. ?? PROCEDURE DETAILS ?? Indications: sino-nasal symptoms ?? Medication: none CONSENT Consent obtained: verbal Consent given by: patient The benefits, risks and alternatives to the procedure and the potential need for sedation or anesthesia as well as the names, roles, and responsibilities of healthcare team members performing significant interventional tasks were discussed with the patient and/or decision maker. UNIVERSAL PROTOCOL All relevant documentation and testing were reviewed and available. All required blood products, implants, devices and or special equipment were made available as applicable. Pre-procedure verification was conducted and the correct site was marked if required. A fire risk assessment was done as applicable. The procedural time-out to verify correct patient, correct side/site, and procedure was conducted prior to performing the procedure and confirmed in a procedural pause. SEDATION / ANESTHESIA Anesthesia method: topical application Topical application type: lidocaine Comments: Scope was inserted through the nares bilaterally. ??There was bilateral turbinate congestion and stranding of clear viscid mucus. ??Between the turbinates there was a thicker morton mucus that appeared to be draining from the location of the middle meatus, and therefore likely the maxillary sinuses bilaterally. ??No obvious surgical changes noted in these areas. ?? There was mild-moderate pooling of secretions in the . Vallecula and piriform sinuses clear. ??Vocal cords move normally. ??Erythema of the arytenoids but no significant edema. ??No purulence secretions to suggest infection Impression: #1 Chronic rhinosinusitis We did discuss a trial of nasal irrigation with Sebastien med sinus rinse. ??He has done nasal irrigation in the past. ??We did discuss using distilled water that has been heated, or tap water that has boiled and then been allowed to cool, to reduce the risk of introducing infection. I have also prescribed our Aleman triple spray. ??This is specially compounded to treat the excess mucus in the back of the nose (nasopharynx). It consists of three medications - diphenhydramine, ipratropium bromide and mometasone. ?? Ipratropium bromide is not absorbed into the body and stays topical. It is a muscarinic receptor trent and blocks the goblet cells & nerve fibers responsible for mucus production and nerve associated nasal swelling i.e. cholinergic or vasomotor rhinitis. ??These goblet cells are especially numerous in the posterior third of the nasal passage. ??This will treat the nasal blockage and backward drainage of non-allergic rhinitis. Diphenhydramine is an anti-histamine that blocks allergic reactions. It is low in dosage and will treat the sneezing, nose itching and runny nose of allergic rhinitis or hayfever. Mometasone is a glucocorticosteroid that is minimally absorbed into the body. It reduces the inflammation permanently over time. It decongests the nasal passages and is effective for allergic and non-allergic rhinitis. It is unclear whether the cough is brought about by the inflammation of the lining of the nose (rhinitis) or whether the mucus is directly causing the irritation in the larynx or voice box as it drips down. ??SInce the common path in allergic and non-allergic rhinitis associated cough is the postnasal drip, this solution is effective for both situations. If the Aleman triple spray is not covered by his insurance and too expensive he could try doing the nasal irrigation followed by his current Flonase b.i.d. otherwise the Aleman triple spray will replace the Flonase. If cough/sinus problems persist would recommend budesonide ampule in the nasal irrigation fluid, and CT sinus. ??If CT sinus shows significant abnormalities would consider ENT consult for potential surgery. Lloyd Trevino Jr., M.D. PFT ORDERABLE S [facility]AL NA documented in this encounter Visit Diagnoses Diagnosis Drip Post Nasal Rhinosinusitis Chronic Rhinitis Allergic documented in this encounter Care Teams Specialties Operator Relationship Specialty Start Date End Date Elsewhere, Pcp PCP - General Internal Medicine 05/17/22 documented as of this encounter
--- OUTSIDE RECORDS SUMMARY | 2023-03-22 10:22 | XMS_ITS | Encounter Summary ---
Author Name Unknown Organization [facility] Address [address] [place] [address] Care Team Providers Care Coordinator Mining Products Name Role Phone Elsewhere, Pcp Primary Care Provider Unavailabl e Reason for Visit * Outpatient (Routine) - Closed Specialty Diagnoses / Procedures Referred By Fern cisneros Referred To Contact Nutrition Diagnoses Diabetes Mellitus Type 2 (HCC) Carroll Estrada M.D., Ph.D. [address] [place] [phone] [facility] Referral ID Status Reason Start Date Expiration Date Visits Re quested Visits Authorized [id number] Closed 07/05/2022 07/05/2023 1 1 Encounter Details Date Type Department Care Team (Late st Contact Info) Description 07/21/2022 1:00 PM CDT Telemedicine Department of Nutrition and Diabetes Education in [place], [place] [address] [place] [phone] Carroll Estrada M.D., Ph.D. [address] [place] [phone] Karen Calle M.S., RDN, LD [address] [place] [phone] Diabetes Mellitus Type 2 (HCC) Social History [...] often do you attend chur ch or religion services? More than 4 times per year 05/12/2022 Do you belong to any clubs o r organizations such as worship groups, unions, fraternal or athletic groups, or [...] and heating? Not hard at all 05/12/2022 [facility] [place] of Occupat ional Health - Occupational Stress [...] place to sleep or slept in a nursing home (including now)? No 05/12/2022 Nutrition Answer Date [...] Pressure - - Pulse - - Temperature - - Respiratory Rate - - Oxygen Saturation - - Inhaled Oxygen Concentration - - Weight - - Height 176.1 cm (5' 9.33) 07/21/2022 12:54 PM C DT Body Mass Index - - documented in this encounter Progress Notes * Karen Calle M.S., RDN, LD - 07/21/2022 1:00 PM CDT REASON FOR VISIT Physician consult for: Type 2 Diabetes Met with patient. ASSESSMENT Food/Nutrition Related History Patient presents with Type 2 Diabetes. Noted he visits with an RDN yearly and is unable to loose weight due to a lack of willpower. Since the fall, patient noted he has slowed down and is not as active as he once was. Patient and MD discussed the Mediterranean Diet, but patient is concerned that there may require a change in insulin. Cardiology wishes for patient to lose 30 lbs in 1 year. Patient was newly diagnosed with CHF. Patient has tried weight watchers in the past. Food Allergies/Intolerances: None Buddhism/Cultural/Personal Considerations: Brussel sprouts; patent does a lot of gluten free foodsdue to son's condition Eating environment: Patient cooks and shops for family Eating out: 2-3 times per week (less and less) Breakfast [7:30-8 am]: 2 eggs;1 toast (whole wheat/grain) w butter; oatmeal; coffee- black Afternoon meal [12 pm]: left-overs from evening meal, leftover tuna fish casserole, chicken, casserole, soup; sandwich with ham, sliced cheese, mayonnaise - water Afternoon snack:3-4 days per week- popcorn; chips and salsa Evening meal [6 pm]: fish; pork; chicken; vegetable (steamed broccoli, canned beans, bagged salads); salad w ranch dressing;or pasta dish; brown rice- water Evening snack [8-9 pm]:Daily- cheese and crackers; popcorn; chips and dip - recently bought some trail mix- [place] 3 mix from [employer], macadamia nuts Beverages: water (3-4 x34 oz); sugar free [place]; sugar free sparkling water How much fluid do you drink in a day? (One cup is 8 ounces) : 80+ ounces Alcohol: None Supplements: [place] 3 FA, Multivitamin Please see nutrition questionnaire for detailed diet history. Physical Activity Do you get regular physical activity?: No (Patient has been inactive for nearly 6 months, due to fatigue) In a usual week, how many days are you active?: 2 days How much time per day do you spend in physical activity?: 0-15 minutes Weight History Ht Readings from Last 1 Encounters: 07/05/22 176.1 cm Wt Readings from Last 1 Encounters: 07/05/22 112 kg BMI Readings from Last 1 Encounters: 07/05/22 35.95 kg/m?? Weight Change: None Estimation of Nutritional Needs 7541-7455 kcals/day ([place] [address] Foodistaor x 110 activity factor - 500 kcal adjustment) to promote 0.5-1 lb weight loss per week NUTRITION DIAGNOSIS Food and nutrition-related knowledge deficit (NB-1.1) related to Mediterranean Style of eating as evidenced by patient's explicit questions. Nutrition Prescription/Recommendation Balanced, Mediterranean Style diet Consume meals 4-5 hours apart Consume carbohydrate sources during meal times Focus on consuming complex carbohydrate sources Consider portioning out food groups with measuring cups and measuring spoons for 1-2 days to identify what a portion looks like on your plate at home INTERVENTION Education: 1800 Calorie Sample Menu, Disease-Fighting Foods, Mediterranean Diet, Mediterranean DietMeal Plan and Recipes, and My Plate Method, Nutrition Guidelines for Cholesterol, Sodium, and Triglycerides MONITORING AND EVALUATION: Nutrition parameter to monitor: Labs, vitals, anthropometrics Desired Outcome: Maintain nutrition related lab values, vitals, and anthropometrics within target range Patient Goal(s): 1. Patient will consume meals 4-5 hours apart 2. Patient will follow the Mediterranean Style of eating (using the My Plate Method) 3. Patient will consume 6297-5700 kcal per day to promote 0.5-1 lb weight loss per week FOLLOW UP PLAN: Provided contact information if a follow up appointment is desired or if questions should arise. Time spent with patient (minutes): 35 minutes documented in this encounter Plan of Treatment Not on file documented as of this encounter Visit Diagnoses Diagnosis Diabetes Mellitus Type 2 (HCC) documented in this encounter Care Teams Coordinator Mining Products Relationship Specialty Start Date End Date Elsewhere, Pcp PCP - General Internal Medicine 05/17/22 documented as of this encounter
--- OUTSIDE RECORDS SUMMARY | 2023-03-22 10:22 | XMS_ITS | Encounter Summary ---
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 [address] [place] [phone] 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 [address] [place] [phone] [facility] [place] Referral ID Status Reason Start Date Expiration Date Visits Re quested Visits Authorized [id number] Closed 05/19/2022 05/19/2023 1 1 Encounter Details Date Type Department Care Team (Latest Contact Info) Description 07/05/2022 6:33 AM CDT - 07/05/2022 11:59 PM CDT Hospital Encounter Department of Radiology, [facility], in [place], [place] [address] [place] [address] Carroll Estrada M.D., Ph.D. [address] [place] [phone] Atheros[facility] [place] Coronary Artery Without Angina Pectoris Discharge Disposition: Home or Self Care Social [...] often do you attend chur ch or adventist services? More than 4 times per year 05/12/2022 Do you belong to any clubs o r organizations such as cheondoism groups, unions, fraternal or athletic groups, or [...] and heating? Not hard at all 05/12/2022 [facility] of Occupat ional Health - Occupational Stress [...] place to sleep or slept in a [facility] (including now)? No 05/12/2022 Nutrition Answer Date [...] 40 mg by mouth daily. 0 04/10/2014 multivitamin (MULTIPLE VITAMINS ORAL) Take 1 tablet [...] 500 mg by mouth daily. 0 10/03/2022 documented as of this encounter Plan of Treatment Not on file documented as of this encounter Procedures Procedure Name Priority Date/Time Associated Diagnosis Comments PET CT CARDIAC PERFUSION REST AND STRESS RAD - Routine (most inpatients and all outpatients) 07/05/2022 8:59 AM CDT Athe[facility] [place] Coronary Artery Without Angina Pectoris documented in this encounter Results * PET CT Cardiac Perfusion Rest and Stress (07/05/2022 8:59 AM CDT) 07/05/2022 6:33 AM CDT Narrative MARIELA CAPPS - 07/05/2022 10:11 AM CDT See PDF For Result Procedure Note Dex Melgar M.D. - 07/05/2022 See PDF For Result Carroll Estrada M.D., Ph.D. 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 documented in this encounter Administered Medications Inactive Administered Medications - up to 3 most recent administrations Medication Order MAR Action Action Date Dose Rate Site ammonia N 13 injection SKILLED NURSING (AMMONIA N-13) 9-16.5 millicurie, intravenous, Once, On Mon07/05/22 at 0745, For 1 dose, Imaging Protocol Orders Given 07/05/2022 7:51 AM CDT 12.24 millicuries Right Antecubital ammonia N 13 injection SKILLED NURSING (AMMONIA N-13) 9-16.5 millicurie, intravenous, Once, On Mon07/05/22 at 0745, For 1 dose, Imaging Protocol Orders Given 07/05/2022 7:27 AM CDT 11.53 millicuries Right Antecubital regadenoson injection 0.4 mg (LEXISCAN) 0.4 mg, intravenous, Once, On Mon07/05/22 at 0815, For 1 dose, Intraprocedure - Diagnostic, See protocol Administer via rapid IV injection (approximately 10 seconds). Given 07/05/2022 8:06 AM CDT 0.4 mg sodium chloride 0.9 % injection 5 mL 5 mL, intravenous, As needed, line care, See protocol, Starting on Mon07/05/22 at 0806, Intraprocedure - Diagnostic Given 07/05/2022 8:06 AM CDT 5 mL documented in this encounter Care Teams Tonsorial Artist Relationship Specialty Start Date End Date Elsewhere, Pcp PCP - General Internal Medicine 05/17/22 documented as of this encounter
--- OUTSIDE RECORDS SUMMARY | 2023-03-22 10:22 | XMS_ITS | Encounter Summary ---
Author Name Unknown Organization [facility] Address [address] [place] [id number] Care Team Providers Care Supervisor Pullet Farm Name Role Phone Elsewhere, Pcp Primary Care Provider Unavailabl e Reason for Referral * Outpatient (Routine) - Closed Specialty Diagnoses / Procedures Referred By Fern cisneros Referred To Contact Endocrinology Diagnoses Diabetes Mellitus Type 2 (HCC) Sky Mai M.B.B.S., M.D. [address] [place] [phone] [facility] Referral ID Status Reason Start Date Expiration Date Visits Re quested Visits Authorized [id number] Closed 07/21/2022 07/20/2025 1 1 Reason for Visit * Outpatient (Routine) - Closed Specialty Diagnoses / Procedures Referred By Fern cisneros Referred To Contact Endocrinology Diagnoses Diabetes Mellitus Type 2 (HCC) Carroll Estrada M.D., Ph.D. [address] [place] [phone] [facility] Referral ID Status Reason Start Date Expiration Date Visits Re quested Visits Authorized [id number] Closed 07/05/2022 07/05/2023 1 1 Encounter Details Date Type Department Care Team (Latest Contact Info) Description 07/21/2022 10:45 AM CDT Telemedicine Division of Endocrinology in [place], [place] [address] [place] [address] [place] [phone] Carroll Estrada M.D., Ph.D. 200 [place] [phone] Sky Mai M.B.B.S., M.Chito. 200 [place] [phone] Hyperlipidemia Mixed (Primary Dx); Diabetes Mellitus Type 2 (HCC); Obesity Body Mass Index 30-39.9 Adult Social History Tobacco Use Types Packs/Day Years [...] often do you attend chur ch or rastafarian services? More than 4 times per year 05/12/2022 Do you belong to any clubs o r organizations such as hinduism groups, unions, fraternal or athletic groups, or [...] and heating? Not hard at all 05/12/2022 [facility] of Occupat ional Health [...] place to sleep or slept in a long term (including now)? No 05/12/2022 Nutrition Answer Date [...] PM CDT documented as of this encounter Consult Notes * Sky Mai M.B.B.S., M.D. - 07/21/2022 10:45 AM CDT SUBJECTIVE This was a virtual visit conducted using real-time audio video technology. CHIEF COMPLAINT / REASON FOR VISIT Chavo Russell is a 77 y.o. male presenting in referral from Carroll Estrada M.D., Ph.* for consultation in the evaluation of diabetes and obesity. HISTORY OF PRESENT ILLNESS Mr. Russell is a 77-year-old gentleman from [place] referred for optimization of diabetes management. Comorbidities include diastolic heart failure and pulmonary hypertension. Mr. Russell was diagnosed to have diabetes 16 years ago when he had knee replacement surgery. He was started on metformin and insulin was added about 7-8 years ago. Metformin was discontinued 4-5 years ago, likely due to CKD. He is now on a basal bolus insulin regimen taking 70 units of glargine at night and pre meal NovoLog with XYZ doses of 31, 35 in 27 units respectively. He regularly checkshis blood sugars 4 times a day and reports that his fasting and pre lunch and supper readings are in the 140-150 range while post supper they are generally around 190. He is had a few readings in the70s but no severe hypoglycemic episodes. These typically happen during the day. No nocturnal hypoglycemia. His hemoglobin A1c 7.7%. With respect to chronic complications he gets regular eye exams and was not told to have retinopathy. He has CKD with GFR in the 50s, likely multifactorial. He also has symptoms of peripheral neuropathy. No known ASCVD. He has evidence of subclinical atherosclerosis and diastolic heart failure. He has longstanding combined hyperlipidemia with maximum serum triglycerides of over 1200. No history of pancreatitis. He is on combination lipid-lowering therapy with fenofibrate and atorvastatin 20mg. Tolerating it fairly well. Most recent serum triglycerides are around 400 with non HDL cholesterol of 148. He reports family history of dyslipidemia but does not know the details. No history of premature coronary artery disease. REVIEW OF SYSTEMS Constitutional: Positive for fatigue and night sweats. Skin: Positive for skin rash. Eyes: Positive for visual problems. ENT: Positive for sinus congestion. Respiratory: Positive for coughing up mucus (phlegm), shortness of breath and wheezing. Cardiovascular: Positive for swelling in the legs or feet and shortness of breath when lying flat. Gastrointestinal: Positive for diarrhea. Hematologic: Positive for bruises or bleeds easily. Neurological: Positive for light-headedness and headaches. Psychiatric/Behavioral: Positive for change in sexual drive (decreased libido), excessive daytime sleepiness/tiredness, loud snoring, stopping breathing, choking, or gasping while asleep and erectiledysfunction. The following systems were negative: Musculoskeletal OBJECTIVE PHYSICAL EXAM Physical Exam Appears well BMI 36 during the last visit ASSESSMENT / PLAN #1 Diabetes Mellitus Type 2 (HCC) #2 Obesity Body Mass Index 30-39.9 Adult Longstanding insulin-requiring type 2 diabetes, reasonably well controlled with hemoglobin A1c of 7.7%, no severe hypoglycemia. Known complications include nephropathy and neuropathy. He has diastolic dysfunction likely related to obesity and weight loss would be very beneficial. I discussed with him the different treatment options including GLP 1 analogs and S GLT 2 inhibitors. We have decided to start dulaglutide 0.75 mg once a week. He will decrease his prandial insulin to 20 units with eachmeal. I have discussed with him how to make further adjustments based on the blood sugars. If he notes glucose readings below 100 he will decrease by 5 units at a time. Similarly if he notes fasting blood sugars below 100, he will decrease his long-acting insulin by 10 units. He will continue to focus on caloric restriction and physical exercise as tolerated #3 Hyperlipidemia Mixed Combined hyperlipidemia with previous severe hypertriglyceridemia. Anticipate improvement with weight loss. For now will continue with combination lipid- lowering therapy. May require reduction in dose of fenofibrate if creatinine remains elevated. Review progress in 3 months time. Total time spent 45 minute documented in this encounter Plan of Treatment Scheduled Referrals Name Type Priority Associated Diagnoses Order Schedule Endocrinology office visit (clinic) Outpatient Referral Routine Diabetes Mellitus Type 2 (HCC) Expected: 10/21/2022 (Approximate), Expires: 10/22/2023 documented as of this encounter Results * (ABNORMAL) Lipid Panel (10/24/2022 8:38 AM CDT) Triglycerides 256(H) mg/dL 10/24/2022 10:01 AM CDT DTL Comment: ----REFERENCE VALUE---- Normal: <150 mg/dL Borderline High: 150-199 mg/dL High: 200-499 mg/dL Very High: > or =500 mg/dL Cholesterol, Total 126 mg/dL 2022 10:01 AM CDT DTL Comment: ----REFERENCE VALUE---- Desirable: < 200 mg/dL Borderline High: 200 - 239 mg/dL High: > or = 240 mg/dL Cholesterol, LDL, Calculated 56 mg/dL 10/24/2022 10:01 AM CDT DTL Comment: ----REFERENCE VALUE---- Desirable: <100 mg/dL Above Desirable: 100-129 mg/dL Borderline High: 130-159 mg/dL High: 160-189 mg/dL Very High: >=190 mg/dL ----ADDITIONAL INFORMATION---- LDL cholesterol calculated using the Lassiter/NIH equation. Cholesterol, HDL, S 29(L) >=40 mg/dL 10/24/2022 10:01 AM CDT DTL Cholesterol, Non-HDL, Calculated 97 mg/dL 10/24/2022 10:01 AM CDT DTL Comment: ----REFERENCE VALUE---- Desirable: <130 mg/dL Above Desirable: 130-159 mg/dL Borderline High: 160-189 mg/dL High: 190-219 mg/dL Very High: > or =220 mg/dL Fasting (8 HR or more) No 10/24/2022 9:08 AM CDT DTL Blood (Blood, Venous) 10/24/2022 8:38 AM CDT 10/24/2022 9:08 AM CDT Sky Briggs M.D. LAB BLOOD AD D-ON Performing Organization Address [facility] de Phone Number [facility] [address] [place] [address], [facility] [address] [place] [address] * (ABNORMAL) Hemoglobin A1c (10/24/2022 8:38 AM CDT) Hemoglobin A1c, B 7.1(H) 4.0 - 5.6 % 10/24/2022 9:48 AM CDT DTL Comment: Hemoglobin A1c values greater than or equal to 6.5 percent are diagnostic for diabetes mellitus. ??Diagnosis should be confirmed by repeat testing. ??In diabetic patients, HbA1c goals should be discussed with healthcare provider. Blood (Blood, Venous) 10/24/2022 8:38 AM CDT 10/24/2022 8:56 AM CDT Sky Briggs M.D. LAB BLOOD AD D-ON Performing Organization Address [facility] Co de Phone Number [facility] [address] [place] [address], [facility] [address] [place] [address] * (ABNORMAL) Creatinine with Estimated GFR (10/24/2022 8:38 AM CDT) Creatinine 1.62(H) 0.74 - 1.35 mg/dL 10/24/2022 10:01 AM CDT DTL Estimated GFR (eGFR) 44(L) >=60 mL/min/BSA 10/24/2022 10:01 AM CDT DTL Comment: Estimated GFR calculated using the 2020 CKD_EPI creatinine equation. Blood (Blood, Venous) 10/24/2022 8:38 AM CDT 10/24/2022 9:08 AM CDT Sky Briggs M.D. LAB BLOOD AD D-ON [facility] [address] [place] [address], [facility] DTL [facility] [address] [place] [address] documented in this encounter Visit Diagnoses Diagnosis Hyperlipidemia Mixed- Primary Diabetes Mellitus Type 2 (HCC) Obesity Body Mass Index 30-39.9 Adult documented in this encounter Care Teams Supervisor Pullet [employer] Relationship Specialty Start Date End Date Elsewhere, Pcp PCP - General Internal Medicine 05/17/22 documented as of this encounter
--- OUTSIDE RECORDS SUMMARY | 2023-03-22 10:22 | XMS_ITS | Encounter Summary ---
Author Name Unknown Organization [facility] Address [address] [place] [address] Care Team Providers Care Strip Mine Supervisor Name Role Phone Elsewhere, Pcp Primary Care Provider Unavailabl e Reason for Referral * Outpatient (Routine) - Authorized Specialty Diagnoses / Procedures Referred By Fern t Referred To Contact Neurological Surgery Joan Mcgregor MPAS, P.A.-Sudhakar [address] [place] [phone] [facility] Referral ID Status Reason Start Date Expiration Date V isits Requested Visits Authorized [id number] Authorized 10/05/2022 10/04/2025 1 1 * MRI/CAT/PET Scan (Routine) - Authorized Specialty Diagnoses / Procedures Referred By Fern t Referred To Contact Radiology Diagnoses Tumor Cerebral Meninges Benign (HCC) Procedures MR Brain without and with IV Contrast Joan Mcgregor MPAS, P.A.-C. [address] [place] [phone] [facility] Referral ID Status Reason Start Date Expiration Date V isits Requested Visits Authorized [id number] Authorized 10/05/2022 10/05/2023 1 1 Reason for Visit * Outpatient (Routine) - Closed Specialty Diagnoses / Procedures Referred By Fern cisneros Referred To Contact Neurological Surgery Joan Mcgregor MPAS, P.A.-C. [address] [place] [phone] [facility] Referral ID Status Reason Start Date Expiration Date Visits Re quested Visits Authorized [id number] Closed 09/17/2021 09/17/2022 1 1 Encounter Details Date Type Department Care Team (Late st Contact Info) Description 10/05/2022 2:30 PM CDT Office Visit Department of Neurologic Surgery in [place], [place] [address] [place] [phone] Joan Mcgregor MPAS, P.A.-C. [address] [place] [phone] Tumor Cerebral Meninges Benign (HCC) (Primary Dx) Social History Tobacco Use Types Packs/Day Years [...] often do you attend chur ch or christian services? More than 4 times per year 05/12/2022 Do you belong to any clubs o r organizations such as caodaism groups, unions, fraternal or athletic groups, or [...] and heating? Not hard at all 09/28/2022 [facility] of Occupat ional Health - Occupational Stress [...] your living situation today? I have a [facility] place to live 09/28/2022 Education Answer Date [...] Pressure - - Pulse - - Temperature 37 ??C (98.6 ??F) 10/05/2022 2:20 PM CDT Respiratory Rate - - Oxygen Saturation - - Inhaled Oxygen Concentration - - Weight 109 kg (239 lb 10.2 oz) 10/05/2022 2:20 P M CDT Height 172.5 cm (5' 7.91) 10/05/2022 2:20 PM CD T Body Mass Index 36.53 10/05/2022 2:20 PM CDT documented in this encounter Progress Notes * Joan Mcgregor, JOSUES, P.A.-C. - 10/05/2022 2:30 PM CDT Images from the original note were not included. SUBJECTIVE CHIEF COMPLAINT / REASON FOR VISIT Chavo Russell is a 77 y.o. male who presents for follow-up, meningioma monitoring. 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 He developed tinnitus and dizzinessfor which he underwent ENT evaluation. A brain MRI for further symptom evaluation revealed an incidentally found, contrast enhancing right frontal falcine mass, consistent with a meningioma. He met with Dr. Garcia in June 2021 and was recommended to monitor with serial imaging. He returns to clinic today. He denies any concerns. He has had no further episodes of dizziness. Heretired in May. He is actively trying to lose weight and has lost 8# with a goal of 30#. He triesto exercise daily, currently is limited by the weather. Denies headaches or other neurologic changes. Past Surgical History: Procedure Laterality Date HERNIA REPAIR JOINT REPLACEMENT SINUS SURGERY TONSILLECTOMY VASECTOMY REVIEW OF SYSTEMS: Cardiovascular: Positive for swelling in the legs or feet, pain in the calf muscles when walking and shortness of breath when lying flat. Neurological: Positive for light-headedness and headaches. Psychiatric/Behavioral: Positive for change in sexual drive (decreased libido), excessive daytime sleepiness/tiredness, loud snoring and erectile dysfunction. The following systems were negative: Constitutional, Skin, Eyes, ENT, Respiratory, Gastrointestinal, Hematologic, Musculoskeletal OBJECTIVE PHYSICAL EXAM AxOx4, speech is clear. Face is symmetric. Moves all four extremities against gravity without obvious weakness. Ambulates without a gait aide DIAGNOSTICS ASSESSMENT / PLAN #1 Tumor Cerebral Meninges Benign (HCC) Mr. Russell returns for follow-up with repeat imaging. His MRI completed today is stable; there is no evidence of any tumor growth or changes at this time. Discussed his meningioma and its locationrelated to the superior sagittal sinus and how this would impact surgical resection. Given there isno evidence of progression, would recommend repeat MRI in on year. Mr. Russell is comfortable with this plan and understands he can contact the clinic with any questions or concerns. documented in this encounter Plan of Treatment Scheduled Orders Name Type Priority Associated Diagnoses Orde r Schedule MR Brain without and with IV Contrast Imaging RAD - Routine (most inpatients and all outpatients) Tumor Cerebral Meninges Benign (HCC) Expected: 10/06/2023 (Approximate), Expires: 01/06/2024 Scheduled Referrals Name Type Priority Associated Diagnoses Order Schedule Neurological Surgery office visit (clinic) Outpatient Referral Routine Expect ed: 10/06/2023 (Approximate), Expires: 01/06/2024 documented as of this encounter Visit Diagnoses Diagnosis Tumor Cerebral Meninges Benign (HCC)- Primary documented in this encounter Care Teams Strip Mine Supervisor Relationship Specialty Start Date End Date Elsewhere, Pcp PCP - General Internal Medicine 05/17/22 documented as of this encounter
--- OUTSIDE RECORDS SUMMARY | 2023-03-22 10:22 | XMS_ITS | Encounter Summary ---
Author Name Unknown Organization [facility] Address [address] [place] [address] Care Team Providers Care Direct Support Professional Home Health Name Role Phone Elsewhere, Pcp Primary Care Provider Unavailabl e Encounter Details Date Type Department Care Team (Latest Contact Info) Description 10/24/2022 8:28 AM CDT - 10/24/2022 11:59 PM CDT Hospital Encounter Department of Laboratory Medicine and Pathology, [facility] in [place], [place] [address] [place] [address] Sky Mai M.B.B.S., [place] [address] [place] [address] Diabetes Mellitus Type 2 (HCC) Discharge Disposition: Home or Self Care Social [...] How often do you attend chur or cheondoism services? More than 4 times per year 05/12/2022 Do you belong to any clubs o r organizations such as jainism groups, unions, fraternal or athletic groups, or [...] heating? Not hard at all 09/28/2022 [facility] - Occupational [...] your living situation today? I have a [facility] place to live 09/28/2022 Education Answer [...] Ultra-Fine Mini Pen Needle 31 gauge x 05/26 needle USE TO INJECT FOUR TIMES DAILY 0 08/21/2021 carvediloL (COREG) 12.5 mg tablet Take 1 tablet (12.5 mg total) by mouth 2 (two) times a day with meals. 180 tablet 3 07/05/2022 07/05/2023 chlorthalidone (HYGROTON) 25 mg tablet Take 25 mg by mouth daily. 0 10/29/2020 clobetasoL (TEMOVATE) 0.05 % cream Apply 1 application topically as needed. 0 04/26/2021 dulaglutide (Trulicity) 1.5 mg/0.5 mL pen injector injection Inject 0.5 mL (1.5 mg total) under the skin every 7 (seven) days. 2 mL 11 10/24/2022 flash glucose scanning reader (FreeStyle Stormy 2 [place]) [facility] Use as directed 1 each 0 07/21/2022 flash glucose sensor (FreeStyle Stormy 2 Sensor) kit 1 each (1 kit total) every 14 (fourteen) days. 6 each 3 07/21/2022 icosapent ethyL (Vascepa) 1 gram capsule capsule Take 2 capsules (2 g total) by mouth 2 (two) times a day with meals. 360 capsule 3 10/24/2022 insulin aspart U-100 (NovoLOG FlexPen) 100 unit/mL (3 mL) injection Inject 15 Units under the skin 3 (three) times a day with meals. 15 mL 0 10/24/2022 insulin glargine-yfgn (SEMGLEE) 100 unit/mL (3 mL) injection Inject 60 Units under the skin at bedtime. 15 mL 0 10/24/2022 lisinopriL (PRINIVIL,ZESTRIL) 40 mg tablet Take 40 [...] mg by mouth at bedtime. 0 04/10/2014 sodium chloride-sodium bicarbonate (NEILMED SINUS RINSE) nasal rinse Administer 1 Application into each nostril as needed for congestion. Use water that is either sterile, distilled, or previously boiled for preparations; do not use tap water. 1 each 0 07/06/2022 01/24/2023 documented as of this encounter Plan of Treatment Not on file documented as of this encounter Procedures Procedure Name Priority Date/Time Associated Diagnosis Comments LIPID PANEL, S Routine 10/24/2022 8:38 AM CDT Diabetes Mellitus Type 2 (HCC) HEMOGLOBIN A1C, B Routine 10/24/2022 8:3 8 AM CDT Diabetes Mellitus Type 2 (HCC) CREATININE WITH EGFR, S/P Routine 10/24/2022 8:38 AM CDT Diabetes Mellitus Type 2 (HCC) documented in this encounter Results * (ABNORMAL) Lipid Panel [...] 8:38 AM CDT 10/24/2022 9:08 AM CDT kSy Briggs M.D. LAB BLOOD AD D-ON Performing Organization Address [facility] de Phone Number [facility] [address] [place] [address], [facility] [address] [place] [address] * (ABNORMAL) Hemoglobin A1c (10/24/2022 8:38 AM [...] LAB BLOOD AD D-ON Performing Organization Address [facility] de Phone Number [facility] [address] [place] [address], [facility] [address] [place] [address] * (ABNORMAL) Creatinine with Estimated GFR (10/24/2022 8:38 AM CDT) Creatinine 1.62(H) 0.74 - 1.35 mg/dL 10/24/2022 10:01 AM CDT DTL Estimated GFR (eGFR) 44(L) >=60 mL/min/BSA 10/24/2022 10:01 AM CDT DTL Comment: Estimated GFR calculated using the 2020 CKD_EPI creatinine equation. Blood (Blood, Venous) 10/24/2022 8:38 AM CDT 10/24/2022 9:08 AM CDT Sky Briggs M.D. LAB BLOOD AD D-ON [address] [address], [facility] DTL [address] [address] documented in this encounter Visit Diagnoses Diagnosis Diabetes Mellitus Type 2 (HCC) documented in this encounter Care Teams Direct Support Professional Home Health Relationship Specialty Start Date End Date Elsewhere, Pcp PCP - General Internal Medicine 05/17/22 documented as of this encounter
--- OUTSIDE RECORDS SUMMARY | 2023-03-22 10:22 | XMS_ITS | Encounter Summary ---
Author Name Unknown Organization [facility] Address [address] [place] [address] Care Team Providers Care Manager Surgical Name Role Phone Elsewhere, Pcp Primary Care Provider Unavailabl e Reason for Visit * Reason Onset Date Comments Pre-visit Intake 10/20/2022 Encounter Details Date Type Department Care Team (Latest Contact Info) Description 10/20/2022 12:30 PM CDT Clinical Communication Virtual Review in [place], [place] [address] [place] [address] Pre-visit Intake Social History Tobacco Use Types [...] often do you attend chur ch or mormonism services? More than 4 times per year 05/12/2022 Do you belong to any clubs o r organizations such as mormon groups, unions, fraternal or athletic groups, or [...] and heating? Not hard at all 09/28/2022 [facility] - Occupational [...] your living situation today? I have a [facility] place to live 09/28/2022 Education Answer [...] on filedocumented in this encounter Care Teams Manager Surgical Relationship Specialty Start Date End Date Elsewhere, Pcp PCP - General Internal Medicine 05/17/22 documented as of this encounter
--- OUTSIDE RECORDS SUMMARY | 2023-03-22 10:22 | XMS_ITS | Encounter Summary ---
Author Name Unknown Organization [facility] Address [address] [place] [address] Care Team Providers Care Pathological Technician Name Role Phone Elsewhere, Pcp Primary Care Provider Unavailabl e Reason for Referral * MRI/CAT/PET Scan (Routine) - Closed Specialty Diagnoses / Procedures Referred By Contac t Referred To Contact Radiology Diagnoses Tumor Cerebral Meninges Benign (HCC) Procedures MR Brain without and with IV Contrast Joan Mcgregor MPAS, P.A.-Sudhakar [address] [place] [address] [facility] Referral ID Status Reason Start Date Expiration Date Visits Re quested Visits Authorized [id number] Closed 09/06/2022 09/17/2023 1 1 Reason for Visit * MRI/CAT/PET Scan (Routine) - Closed Specialty Diagnoses / Procedures Referred By Fern cisneros Referred To Contact Radiology Diagnoses Tumor Cerebral Meninges Benign (HCC) Procedures MR Brain without and with IV Contrast Joan Mcgregor MPAS, P.A.-Sudhakar [address] [place] [phone] [facility] Referral ID Status Reason Start Date Expiration Date Visits Re quested Visits Authorized [id number] Closed 09/06/2022 09/17/2023 1 1 Encounter Details Date Type Department Care Team (Latest Contact Info) Description 10/05/2022 8:25 AM CDT - 10/05/2022 11:59 PM CDT Hospital Encounter Department of Radiology, [facility] in [place], [place] [address] [place] [address] Joan Mcgregor MPAS, P.A.-C. [address] [place] [address] Tumor Cerebral Meninges Benign (HCC) Discharge Disposition: Home or Self Care [...] often do you attend chur ch or lutheran services? More than 4 times per year [...] and heating? Not hard at all 09/28/2022 [facility] - Occupational Stress [...] living situation today? I have a [facility] place to live 09/28/2022 Education Answer [...] 1 application topically as needed. 0 04/26/2021 flash glucose scanning reader (FreeStyle Stormy 2 [place]) [facility] Use as directed 1 each 0 07/21/2022 flash glucose sensor (FreeStyle Stormy 2 Sensor) kit 1 each (1 kit total) every 14 (fourteen) days. 6 each 3 07/21/2022 lisinopriL (PRINIVIL,ZESTRIL) 40 mg tablet Take 40 [...] 2 (two) times a day. 0 10/24/2022 dulaglutide (Trulicity) 0.75 mg/0.5 mL injection Inject 0.5 mL (0.75 mg total) under the skin every 7 (seven) days. 2 mL 3 07/21/2022 10/24/2022 fenofibrate nanocrystallized (TRICOR) 145 mg tablet Take 145 mg by mouth daily. 0 04/10/2014 10/24/2022 insulin aspart U-100 (NovoLOG FlexPen) 100 unit/mL (3 mL) injection 20 Units 3 (three) times a day. 0 05/05/2021 10/24/2022 insulin glargine-yfgn 100 unit/mL (3 mL) insulin pen Inject 70 Units under the skin at bedtime. 0 03/12/2021 10/24/2022 sodium chloride-sodium bicarbonate (NEILMED SINUS RINSE) nasal [...] Procedure Name Priority Date/Time Associated Diagnosis Comments MR BRAIN WITHOUT AND WITH IV CONTRAST RAD - Routine (most inpatients and all outpatients) 10/05/2022 9:46 AM CDT Tumor Cerebral Meninges Benign (HCC) documented in this encounter Results * MR Brain without and with IV Contrast (10/05/2022 9:46 AM CDT) Anatomical Region Laterality Modality Head, Brain, Neuroradiology RST LOS, Neuroradiology ARZ LOS, Neuroradiology FLA LOS N/A Magnetic Resonance 10/05/2022 11:4 9 AM CDT Impressions 10/05/2022 12:07 PM CDT Stable appearance of previously noted right parafalcine frontal meningioma. Narrative 10/05/2022 12:07 PM CDT EXAM: MR BRAIN WITHOUT AND WITH IV CONTRAST COMPARISON: Prior examinations dated 09/17/2021 and 06/03/2021. FINDINGS: Previously noted right parafalcine frontal meningioma is again noted and not significantly changed in size or appearance when compared to the prior exams. Maximal diameter measures approximately 2.6 cm Adjacent superior sagittal sinus remains patent. No signal changes are demonstrated within the adjacent right frontal lobe. Minimal leukoaraiosis unchanged. 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 Small retention cyst or polyp demonstrated along the anterolateral left maxillary antrum. Procedure Note Ben Mitchell M.D. - 10/05/2022 EXAM: MR BRAIN WITHOUT AND WITH IV CONTRAST COMPARISON: Prior examinations dated 09/17/2021 and 06/03/2021. FINDINGS: Previously noted right parafalcine frontal meningioma is again noted andnot significantly changed in size or appearance when compared to the prior exams. Maximal diametermeasures approximately 2.6 cm Adjacent superior sagittal sinus remains patent. No signal changes aredemonstrated within the adjacent right frontal lobe. Minimal leukoaraiosis unchanged.Dolichoectasia of the right vertebrobasilar artery noted (previously thought to be the leftvertebral). Small retention cyst or polyp demonstrated along the anterolateral left maxillary antrum. IMPRESSION: Stable appearance of previously noted right parafalcine frontalmeningioma. Joan TORRES, P.A.-C. IMG MRI PRO CEDURES documented in this encounter Visit Diagnoses Diagnosis Tumor Cerebral Meninges Benign (HCC) documented in this encounter Administered Medications Inactive Administered Medications - up to 3 most recent administrations Medication Order MAR Action Action Date Dose Rate Site gadobutrol injection 0.01-30 mL (GADAVIST) 0.01-30 mL, intravenous, Once in imaging, contrast, Starting on Mon10/05/22 at 0832, For 1 dose, Imaging Protocol Orders, Dose per Radiant Medication Guidelines Intrathecal doses greater than 0.25 mL not recommended. Given 10/05/2022 9:37 AM CDT 12 mL documented in this encounter Care Teams Pathological Technician Relationship Specialty Start Date End Date Elsewhere, Pcp PCP - General Internal Medicine 05/17/22 documented as of this encounter
--- OUTSIDE RECORDS SUMMARY | 2023-03-22 10:23 | XMS_ITS | Encounter Summary ---
Author Name Unknown Organization [facility] Address [address] [place] [address] Care Team Providers Care Plant Tech Name Role Phone Elsewhere, Pcp Primary Care Provider Unavailabl e Encounter Details Date Type Department Care Team (Late st Contact Info) Description 05/19/2022 9:30 AM IN PROCESS INSPECTOR Diagnostic Division of Pulmonary Medicine in [place], [place] [address] [place] [phone] Carroll Estrada M.D., Ph.D. [address] [place] [phone] Asthma (HCC) Social History Tobacco Use Types Packs/Day [...] often do you attend chur ch or taoism services? More than 4 times per year 05/12/2022 Do you belong to any clubs o r organizations such as baptist groups, unions, fraternal or athletic groups, or [...] and heating? Not hard at all 05/12/2022 [facility]at ional Health - Occupational Stress [...] place to sleep or slept in a fpc (including now)? No 05/12/2022 Nutrition Answer Date [...] Procedure Name Priority Date/Time Associated Diagnosis Comments EXHALED NITRIC OXIDE Routine 05/19/2022 9:36 AM IN PROCESS INSPECTOR Asthma (HCC) documented in this encounter Results * PUL Exhaled Nitric Oxide (05/19/2022 9:36 AM IN PROCESS INSPECTOR) Exhaled NO Oral 40 ONBASE Parts per billion (ULN) 39 ONBASE ENOComment Patient takes Albuterol and Flonase ONBASE Carroll Estrada M.D., Ph.D. PFT ORDERABLES ONBASE NA documented in this encounter Visit Diagnoses Diagnosis Asthma (HCC) documented in this encounter Care Teams Plant Tech Relationship Specialty Start Date End Date Elsewhere, Pcp PCP - General Internal Medicine 05/17/22 documented as of this encounter
--- OUTSIDE RECORDS SUMMARY | 2023-03-22 10:23 | XMS_ITS | Encounter Summary ---
Author Name Unknown Organization [facility] Address [address] [place] [address] Care Team Providers Care Custom Bow Maker Name Role Phone Elsewhere, Pcp Primary Care Provider Unavailabl e Encounter Details Date Type Department Care Team (Late st Contact Info) Description 07/04/2022 4:30 PM CDT Diagnostic Division of Pulmonary Medicine in [place], [place] [address] [place] [address] Lloyd Trevino Jr., M.D. [address] [place] [phone] Apnea Sleep Obstructive Social History Tobacco Use Types Packs/Day Years [...] often do you attend chur ch or buddhist services? More than 4 times per year 05/12/2022 Do you belong to any clubs o r organizations such as adventist groups, unions, fraternal or athletic groups, or [...] and heating? Not hard at all 05/12/2022 [facility] Questionnaire Answer Date [...] place to sleep or slept in a jail (including now)? No 05/12/2022 Nutrition Answer Date [...] Name Priority Date/Time Associated Diagnosis Comments PUL HOME OVERNIGHT OXIMETRY Routine 07/04/2022 Apnea Sleep Obstructive documented in this encounter Results * Home Overnight Oximetry (07/04/2022) 07/04/2022 Jessys PELON JALLOH - 07/06/2022 7:18 AM CDT Overnight oximetry was performed on home CPAP settings and room air. ??The patient denied alcohol or sedative medication on the night of the study, and stated quality of sleep the same as usual. ??[place] Sleepiness Scale was 7. ??Baseline oxygen saturation was 95%, with mean overnight saturation ranging between 94 and 96%. ??Minimal oscillatory variations are most likely artifact related. Impression: ??No significant desaturation or convincing evidence of residual sleep disordered breathing on current CPAP settings. Physician: Ta Bell M.D. [id number] Narrative Procedure Note Ta Bell M.D. - 07/06/2022 IMPRESSION: Overnight oximetry was performed on home CPAP settings and room air. Thepatient denied alcohol or sedative medication on the night of the study,and stated quality of sleep the same as usual. [place] Sleepiness Scalewas 7. Baseline oxygen saturation was 95%, with mean overnight saturation ranging between 94 and96%. Minimal oscillatory variations are most likely artifact related. Impression: No significant desaturation or convincing evidence ofresidual sleep disordered breathing on current CPAP settings. Physician: Ta Bell M.D. [id number] Lloyd Trevino Jr., M.D. PFT ORDERABLE S Performing Organization Address City/State/[facility] Co de Phone Number [facility] documented in this encounter Visit Diagnoses Diagnosis Apnea Sleep Obstructive documented in this encounter Care Teams Custom Bow Maker Relationship Specialty Start Date End Date Elsewhere, Pcp PCP - General Internal Medicine 05/17/22 documented as of this encounter
--- OUTSIDE RECORDS SUMMARY | 2023-03-22 10:23 | XMS_ITS | Encounter Summary ---
Author Name Unknown Organization [facility] Address [address] [place] [address] Care Team Providers Care News Commentator Name Role Phone Elsewhere, Pcp Primary Care Provider Unavailabl e Reason for Visit * Reason Comments Med Refill Encounter Details Date Type Department Care Team (Late st Contact Info) Description 05/19/2022 Refill Department of Cardiovascular Medicine in [place], [place] [address] [place] [phone] Carroll Estrada M.D., Ph.D. [address] [place] [phone] Med Refill Social History Tobacco Use Types Packs/Day Years [...] How often do you attend chur or judaism services? More than 4 times per year 05/12/2022 Do you belong to any clubs o r organizations such as mormonism groups, unions, fraternal or athletic groups, or [...] and heating? Not hard at all 05/12/2022 [facility] Health - Occupational Stress [...] the money to buy more. Never true 03/02/20 23 Within the past 12 months, t [...] or slept in a assisted (including now)? No 05/12/2022 Nutrition Answer Date [...] on filedocumented in this encounter Care Teams News Commentator Relationship Specialty Start Date End Date Elsewhere, Pcp PCP - General Internal Medicine 05/17/22 documented as of this encounter
--- OUTSIDE RECORDS SUMMARY | 2023-03-22 10:23 | XMS_ITS | Encounter Summary ---
Author Name Unknown Organization [facility] Address [address] [place] [id number] Care Team Providers Care Car Shunter Name Role Phone Elsewhere, Pcp Primary Care Provider Unavailabl e Reason for Referral * Outpatient (Routine) - Closed Specialty Diagnoses / Procedures Referred By Fern cisneros Referred To Contact Cardiovascular Disease Carroll Estrada M.D., Ph.D. [address] [place] [phone] [facility] Referral ID Status Reason Start Date Expiration Date Visits Re quested Visits Authorized [id number] Closed 05/19/2022 05/18/2025 1 1 ONAL DRIVER * Outpatient (Routine) - Closed Specialty Diagnoses / Procedures Referred By Fern cisneros Referred To Contact Pulmonary Medicine Diagnoses Asthma (HCC) Carroll Estrada M.D., Ph.D. [address] [place] [phone] [facility] Referral ID Status Reason Start Date Expiration Date Visits Re quested Visits Authorized [id number] Closed 05/19/2022 05/19/2023 1 1 ONAL DRIVER * Outpatient (Routine) - Authorized Specialty Diagnoses / Procedures Referred By Fern t Referred To Contact Endocrinology Diagnoses Morbid Obesity (HCC) Carroll Estrada M.D., Ph.D. [address] [place] [phone] [facility] Referral ID Status Reason Start Date Expiration Date V isits Requested Visits Authorized [id number] Authorized 05/19/2022 05/19/2023 1 1 ONAL DRIVER * Outpatient (Routine) - Authorized Specialty Diagnoses / Procedures Referred By Contac t Referred To Contact Nutrition Diagnoses Morbid Obesity (HCC) Carroll Estrada M.D., Ph.D. [address] [place] [phone] [facility] Referral ID Status Reason Start Date Expiration Date V isits Requested Visits Authorized [id number] Authorized 05/19/2022 05/19/2023 1 1 ONAL DRIVER * Outpatient (Routine) - Authorized Specialty Diagnoses / Procedures Referred By Contac t Referred To Contact Diagnoses Dyspnea On Exertion Procedures ECG Heart Rhythm Monitor (Holter) Carroll Estrada M.D., Ph.D. [address] [place] [phone] [facility] Referral ID Status Reason Start Date Expiration Date V isits Requested Visits Authorized [id number] Authorized 05/19/2022 05/19/2023 1 1 ONAL DRIVER * MRI/CAT/PET Scan (Routine) - Closed Specialty Diagnoses / Procedures Referred By Contac t Referred To Contact Diagnoses Atherosclerotic Heart Disease Of [place] Coronary Artery Without Angina Pectoris Procedures PET CT Cardiac Perfusion Rest and Stress Carroll Estrada M.D., Ph.D. [address] [place] [phone] [facility] Referral ID Status Reason Start Date Expiration Date Visits Re quested Visits Authorized [id number] Closed 05/19/2022 05/19/2023 1 1 ONAL DRIVER * Outpatient (Routine) - Closed Specialty Diagnoses / Procedures Referred By Fern cisneros Referred To Contact Diagnoses Atherosclerotic Heart Disease Of [place] Coronary Artery Without Angina Pectoris Dyspnea On Exertion Procedures Echo Transthoracic (TTE) Carroll Estrada M.D., Ph.D. 200 [place] [phone] [facility] Referral ID Status Reason Start Date Expiration Date Visits Re quested Visits Authorized [id number] Closed 05/19/2022 05/19/2023 1 1 ONAL DRIVER Reason for Visit * Outpatient (Routine) - Closed Specialty Diagnoses / Procedures Referred By Fern cisneros Referred To Contact Cardiovascular Disease Diagnoses Atherosclerotic Heart Disease Of [place] Coronary Artery Without Angina Pectoris Tulio Ortiz M.D. [address] [place] [phone] [facility] Referral ID Status Reason Start Date Expiration Date Visits Re quested Visits Authorized [id number] Closed 04/04/2022 04/04/2023 1 1 Encounter Details Date Type Department Care Team (Latest Contact Info) Description 05/19/2022 8:15 AM SEASONAL DRIVER Comprehensive Visit Department of Cardiovascular Medicine in [place], [place] [address] [place] [phone] Carroll Estrada M.D., Ph.D. [address] [place] [phone] Hypertension Essential Primary (Primary Dx); Atherosclerotic Heart Disease Of [place] Coronary Artery Without Angina Pectoris; Dyspnea On Exertion; Morbid Obesity (HCC); Asthma (HCC); Diabetes Mellitus Type 2 (HCC) Social History [...] How often do you attend chur or confucianism services? More than 4 times per year 05/12/2022 Do you belong to any clubs o r organizations such as quaker groups, unions, fraternal or athletic groups, or [...] and heating? Not hard at all 05/12/2022 [facility] [place] of Occupat ional Health - Occupational Stress [...] place to sleep or slept in a penitentiary (including now)? No 05/12/2022 Nutrition Answer Date [...] Sign Reading Time Taken Comments Blood Pressure 129/76 05/19/2022 8:04 AM SEASONAL DRIVER Pulse 101 05/19/2022 8:04 AM SEASONAL DRIVER Temperature - - Respiratory Rate - - Oxygen Saturation - - Inhaled Oxygen Concentration - - Weight 110 kg (241 lb 6.5 oz) 05/19/2022 8:04 AM SEASONAL DRIVER Height 177.1 cm (5' 9.72) 05/19/2022 8:04 AM CS T Body Mass Index 34.91 05/19/2022 8:04 AM SEASONAL DRIVER documented in this encounter Consult Notes * Carroll Estrada M.D., Ph.D. - 05/19/2022 8:15 AM CST GENERAL CARDIOLOGY CLINIC NOTE SUBJECTIVE REFERRING PROVIDER Tulio Ortiz REASON FOR VISIT Fatigue has been ongoing the last 5 months. Gets tired going up stairs the last couple years, but really noticeable the last 5 months HISTORY OF PRESENT ILLNESS Mr. Chavo Russell is a 77 y.o. who is presenting to CV clinic for fatigue and concern after recent CT shows coronary calcifications. Past medical history includes T2DM insulin dependent, VANESSA, HLD, exercise induced asthma, HTN, obesity (BMI > 30), hx of aortic root dilatation, asymptomatic right frontal falcine meningioma. Over the last couple years, Mr. Russell has noticed that he has slowed down. He describes that his walking pace has decreased and he has become more sedentary. He developed shortness of breath but was able to walk over a mile without stopping. He was evaluated locally for the symptoms and obtained a stress test on 06/29/2021 which not show evidence of ischemia. Per report he had a EF estimated to be between 55-60% that increased with stress, and no evidence of significant valve disease. Over the fall of 2021 he developed bronchitis and was hospitalized for 2 days with influenza. [place] his symptoms have deteriorated substantially. He is now unable to walk across his house without significant shortness of breath. He has also become much more fatigued. He notices that if he wereto exert himself his heart rates but she sees in his fit bit, increase from the 80s to 110s. He does not think he feels any palpitations. Does not feel any chest pain or pressure. He has been using his albuterol 5 times a week. Due to his shortness of breath he obtained a CT chest on 03/30/2022 which was notable for coronary calcifications and in particular in the LAD. He was concern for these findings and decided to come to [facility] for further evaluation. He is compliant with his CPAP which he uses every night and while taking naps. He rarely drinks alcohol. He has been having a hard time losing weight. He goes to see a dietitian every year however isunable to lose weight due to a ???lack of will power?? . At home his blood pressures are checked infrequently but he notes that they have been between 150-160 systolic and 90s diastolic. He was previously on atorvastatin 10 mg daily however this was discontinued as a trial to see if it may be contributing to his fatigue. Of note he has been on atorvastatin for at least the last 3 years and does not recall any adverse effects previously. I have reviewed and updated the following: Past Medical History, Family History, Social History, and Allergies. Active Home Medications Medication Sig Taking albuterol 90 mcg/actuation inhaler 2 puffs as needed. aspirin [address] tablet Take 81 mg by mouth daily. atorvastatin (LIPITOR) 20 mg tablet Take 1 tablet (20 mg total) by mouth daily. BD Ultra-Fine Mini Pen Needle 31 gauge x 3/16 needle USE TO INJECT FOUR TIMES DAILY carvediloL (COREG) 6.25 mg tablet Take 1 tablet (6.25 mg total) by mouth 2 (two) times a day with meals. chlorthalidone (HYGROTON) 25 mg tablet Take 25 mg by mouth daily. clobetasoL (TEMOVATE) 0.05 % cream Apply 1 application topically as needed. docosahexaenoic acid/epa (FISH OIL ORAL) Take 1,200 mg by mouth every morning. fenofibrate nanocrystallized (TRICOR) 145 mg tablet Take 145 mg by mouth daily. fluticasone propionate (FLONASE) 50 mcg/actuation nasal spray Administer 2 sprays into each nostrilas needed. insulin aspart U-100 (NovoLOG FlexPen) 100 unit/mL (3 mL) injection 3 (three) times a day. 31 unitspre breakfast, 35 units pre lunch, 27 units pre dinner with a correction of 2 units insulin/50 glucose>150. insulin glargine-yfgn 100 unit/mL (3 mL) insulin pen Inject 70 Units under the skin at bedtime. lisinopriL (PRINIVIL,ZESTRIL) 40 mg tablet Take 40 mg by mouth daily. multivitamin (MULTIPLE VITAMINS ORAL) Take 1 tablet by mouth daily. niacin (SLO-NIACIN) 500 mg ER tablet Take 500 mg by mouth daily. omeprazole (PriLOSEC) [address] capsule Take 40 mg by mouth at bedtime. REVIEW OF SYSTEMS Pertinent items are noted in HPI; all other review of systems was negative. OBJECTIVE VITAL SIGNS BP 129/76 (BP Location: Right arm, Patient Position: Sitting, Cuff Size: Large) Pulse 101 Ht 177.1 cm Wt 110 kg BMI 34.91 kg/m?? PHYSICAL EXAMINATION Constitutional: Oriented to person, [...] LV EF 60%, no significant mitral regurgitation ASSESSMENT / PLAN #1 Atherosclerotic Heart Disease Of [place] Coronary Artery Without Angina Pectoris #2 Hypertension Essential Primary #3 Dyspnea On Exertion #4 Morbid Obesity (HCC) #5 Asthma (HCC) #6 Diabetes Mellitus Type 2 ([facility]) Mr. Russell presents with progressive dyspnea on exertion and fatigue which is likely multifactorial due to cardiopulmonary disease and deconditioning. He does have evidence of coronary artery disease with dense LAD calcifications noted on CT chest. A recent outside stress echo last spring did not show evidence of ischemia, low EF or valve disease. His symptoms have however significant decompensated since then and it would be worthwhile reassessing for cardiac function and ischemia with a repeat stress test and resting echocardiogram. He does not feel palpitations with symptoms but will also obtain a Holter to assess for Afib and other potential arrhythmias as a contributor. He does have a history of asthma and uses his albuterol inhaler multiple times a week for his symptoms. Will obtain PFTs and refer to pulmonology to reassess his asthma severity. Finally we had extensive discussion concerning his obesity and failed attempts to lose weight through diet alone. I think Mr. Russell would benefit from seeing endocrinology for medical management for weight loss and may benefit from starting a novel GLP-1 agonist. Mr. Russell does not have well controlled hypertension, we will make adjustments to his medications. RECOMMENDATIONS: 1. PET CT Cardiac Perfusion Rest and Stress, TTE, Holter 2. PFTs with pulmonology referral 3. Endocrinology referral for weight management 4. Start carvedilol and atorvastatin 5. Follow up in a month after testing to review This case was staffed with Dr. Ashton who is in agreement with the plan above I personally spent 60 minutes in care of the patient today. Time includes both non otyv-cf-[id number] [id number] patient care. Electronically signed by: Carroll Estrada M.D., Ph.D. ONAL DRIVER * Nic Ashton M.D. - 05/19/2022 8:15 AM CST Supervisory note with Dr. Estrada. I have interviewed the patient and reviewed the data and I agree with the findings and recommendations. He particularly emphasizes fatigue in spite of the use of a CPAP and with the heavy coronary calcification it seems appropriate to proceed with the studies as outlined in changes in medication as well. His limitations are likely multifactorial and will explore his pulmonary status as well ONAL DRIVER documented in this encounter Plan of Treatment Scheduled Referrals Name Type Priority Associated Diagnoses Order Schedule Nutrition - Weight management medical nutrition therapy overweight/obesity consult (clinic) Outpatient Referral Routine Morbid Obesity (HCC) Expected: 05/19/2022 (Approximate), Expires: 08/20/2023 Endocrinology - Weight management consult (clinic) Outpatient Referral Routine Morbid Obesity (HCC) Expected: 05/19/2022 (Approximate), Expires: 08/20/2023 Pulmonary Medicine - Asthma consult (clinic) Outpatient Referral Routine Asthma ([facility]) Expected: 05/19/2022 (Approximate), Expires: 08/20/2023 Cardiovascular Disease office visit (clinic) General Outpatient Referral Routine Expected: 06/19/2022 (Approximate), Expires: 08/20/2023 documented as of this encounter Procedures Procedure Name Priority Date/Time Associated Diagnosis Comments NT-PRO B-TYPE NATRIURETIC PEPTIDE (BNP), S Routine 05/19/2022 7:05 AM SEASONAL DRIVER Atherosclerotic Heart Disease Of [place] Coronary Artery Without Angina Pectoris HEMOGLOBIN A1C, B Routine 05/19/2022 7:0 5 AM SEASONAL DRIVER Diabetes Mellitus Type 2 (HCC) IMMUNOGLOBULIN E (IGE), S Routine 05/19/2022 7:05 AM SEASONAL DRIVER Asthma ([facility]) documented in this encounter Results * PET CT Cardiac Perfusion Rest and Stress (07/05/2022 8:59 AM CDT) 07/05/2022 6:33 AM CDT Narrative [facility] - 07/05/2022 10:11 AM CDT See PDF For Result Procedure Note Dex Melgar M.D. - 07/05/2022 See PDF For Result Carroll Estrada M.D., Ph.D. [facility] [place] PROCEDUR ES MC CV MERGE NA * (TTE) 2D ECHO DOPPLER COLOR (05/27/2022 1:55 PM CDT) [facility] Ejection Fraction 69 MC CV EIMS Sinus of Valsalva 40 MC CV EIMS Sinotubular Junction 37 MC CV EIMS Proximal Ascending Aorta 40 MC CV EIMS Mid-Ascending Aorta 40 MC CV EIMS LV Mass Index 113 MC CV EIMS LV End-Diastolic Diameter 51 MC CV EIMS LV End-Systolic Diameter 30 MC CV EIMS LV End-Diastolic Volume 140 MC CV EIMS LV End-Systolic Volume 48 MC CV EIMS MV E Velocity 0.5 MC CV EIMS MV A Velocity 0.8 MC CV EIMS MV E/A 0.63 MC CV EIMS MV e' Velocity Medial 0.09 MC CV EIMS MV e' Velocity Lateral 0.13 MC CV EIMS MV E/e' Medial 5.6 MC CV EIMS MV E/e' Lateral 3.8 MC CV EIMS Left ventricular stroke volume index 42 MC CV EIMS Cardiac Output 6.68 MC CV EIMS Cardiac Index 2.97 MC CV EIMS LV Interventricular Septal Wall Thickness 11 MC CV EIMS LV Posterior Wall Thickness 14 MC CV EIMS LV Relative Wall Thickness 55 MC CV EIMS TAPSE 18 MC CV EIMS Tricuspid Annular S? 0.14 MC CV EIMS TR Vmax 2.29 MC CV EIMS RA Pressure 5 MC CV EIMS RV Systolic Pressure 26 MC CV EIMS Estimated diastolic pulmonary artery pressure 8 MC CV EIMS AV mean gradient 4 MC CV EIMS Aortic valve area 3.95 MC CV EIMS Aortic Valve Dimensionless Index 0.87 MC CV EIMS LA Volume Index 22 MC CV EIMS Aortic Valve Systolic Peak Velocity 1.4 MC CV EIMS Anatomical Region Laterality Modality Echocardiography 05/27/2022 12:3 3 PM CDT Impressions 05/27/2022 2:00 PM CDT Last full echocardiogram performed 04/07/2014. LEFT VENTRICLE:Normal left ventricular chamber size. Normal left ventricular wall thickness. Calculated 2-D biplane volumetric left ventricular ejection fraction of 66%. Calculated 2-D linear left ventricular ejection fraction 69%. No regional wall motion abnormalities. Grade 1/3 left ventricular diastolic dysfunction, consistent with low to normal left ventricular filling pressure at rest. RIGHT VENTRICLE:Borderline enlarged right ventricular chamber size by visual estimate. Borderline reduced right ventricular systolic function. Estimated right ventricular systolic pressure 26 mmHg (right atrial pressure of 5 mmHg). ATRIA:Normal left atrial size. Left atrial volume index 22 ml/m2. Normal right atrial size by visual estimate. CARDIAC VALVES:Trileaflet aortic valve. Thickened aortic valve. No aortic valve regurgitation. Mildly thickened mitral valve. Trivial mitral valve regurgitation. Normal pulmonary valve. Normal pulmonary valve systolic velocities. Mild pulmonary valve regurgitation. Normal tricuspid valve. Trivial tricuspid valve regurgitation. OTHER ECHO FINDINGS:Small inferior vena cava size with normal inspiratory collapse (>50%). Normal sinus of Valsalva diameter of 40 mm. Upper limit of normal of the sinus of Valsalva for age, sex and BSA is 44 mm. Normal proximal ascending aorta diameter of 40 mm. Normal mid ascending aorta diameter of 40 mm. Upper limit of normal of the mid ascending aorta, for age, sex and BSA is 44 mm. Abdominal aorta incompletely visualized. Normal abdominal aorta Doppler flow pattern. No atrial level shunt by color flow imaging. No intracardiac mass or thrombus, but the left atrial appendage cannot be visualized adequately with transthoracic echo to exclude thrombus in this location. Prominent circumferential epicardial fat layer. Moderately lipomatous atrial septum. No ??pericardial effusion. For the complete report, see the Order-Level Documents. Narrative 05/27/2022 2:00 PM CDT For the complete report, see the Order-Level Documents. Hemodynamics Heart Rate: 71 BPM Blood Pressure: 151 / 77 mmHg ECG: Sinus rhythm, Right bundle branch block Final Impressions 1. Normal left ventricular chamber size, no regional wall motion abnormalities, calculated 2-D linear ejection fraction 69%. 2. Grade 1/3 left ventricular diastolic dysfunction, consistent with low to normal left ventricular filling pressure at rest. 3. Borderline enlarged right ventricular chamber size, borderline reduced systolic function, estimated right ventricular systolic pressure 26 mmHg (right atrial pressure of 5 mmHg). 4. No hemodynamically significant valvular heart disease. 5. No ??pericardial effusion. Procedure Note Ronnell Anaya M.D., Ph.D. - 05/27/2022 For the complete report, see the Order-Level Documents. Hemodynamics Heart Rate: 71 BPM Blood Pressure: 151 / 77 mmHg ECG: Sinus rhythm, Right bundle branch block Final Impressions 1. Normal left ventricular chamber size, no regional wall motionabnormalities, calculated 2-D linear ejection fraction 69%. 2. Grade 1/3 left ventricular diastolic dysfunction, consistent with lowto normal left ventricular filling pressure at rest. 3. Borderline enlarged right ventricular chamber size, borderline reducedsystolic function, estimated right ventricular systolic pressure 26 mmHg(right atrial pressure of 5 mmHg). 4. No hemodynamically significant valvular heart disease. 5. No pericardial effusion. Findings Last full echocardiogram performed 04/07/2014. LEFT VENTRICLE:Normal left ventricular chamber size. Normal leftventricular wall thickness. Calculated 2-D biplane volumetric leftventricular ejection fraction of 66%. Calculated 2-D linear leftventricular ejection fraction 69%. No regional wall motion abnormalities.Grade 1/3 left ventricular diastolic dysfunction, consistent with low tonormal left ventricular filling pressure at rest. RIGHT VENTRICLE:Borderline enlarged right ventricular chamber size byvisual estimate. Borderline reduced right ventricular systolic function.Estimated right ventricular systolic pressure 26 mmHg (right atrialpressure of 5 mmHg). ATRIA:Normal left atrial size. Left atrial volume index 22 ml/m2. Normalright atrial size by visual estimate. CARDIAC VALVES:Trileaflet aortic valve. Thickened aortic valve. No aorticvalve regurgitation. Mildly thickened mitral valve. Trivial mitral valveregurgitation. Normal pulmonary valve. Normal pulmonary valve systolicvelocities. Mild pulmonary valve regurgitation. Normal tricuspid valve.Trivial tricuspid valve regurgitation. OTHER ECHO FINDINGS:Small inferior vena cava size with normal inspiratorycollapse (>50%). Normal sinus of Valsalva diameter of 40 mm. Upper limitof normal of the sinus of Valsalva for age, sex and BSA is 44 mm. Normalproximal ascending aorta diameter of 40 mm. Normal mid ascending aortadiameter of 40 mm. Upper limit of normal of the mid ascending aorta, forage, sex and BSA is 44 mm. Abdominal aorta incompletely visualized. Normalabdominal aorta Doppler flow pattern. No atrial level shunt by color flowimaging. No intracardiac mass or thrombus, but the left atrial appendagecannot be visualized adequately with transthoracic echo to excludethrombus in this location. Prominent circumferential epicardial fat layer.Moderately lipomatous atrial septum. No pericardial effusion. For the complete report, see the Order-Level Documents. Carroll Estrada M.D., Ph.D. CV ECHO PROCEDU RES * Pulmonary Function Tests (05/27/2022 8:12 AM CDT) PostFVC 4.11 L 05/27/2022 11:31 AM CDT [facility] SU[facility] PostFEV1 3.21 L 05/27/2022 11:31 AM CDT [facility] SU[facility] FEV1/FVC POST 78.21 % 05/27/2022 11:31 AM CDT [facility] SU[facility] FEF 25-75 % POST 2.71 L/s 05/27/2022 11:31 AM CDT [facility] SU[facility] PEF POST 9.18 L/s 05/27/2022 11:31 AM CDT [facility] SU[facility] PIF POST 7.21 L/s 05/27/2022 11:31 AM CDT [facility] SUITE FEF 50 % FIF 50 POST 44.90 % 05/27/2022 11:31 AM CDT [facility] SUITE FET POST 8.56 sec 05/27/2022 11:31 AM CDT [facility] SUITE DLCO 19.41 ml/(min*mm Hg) 05/27/2022 11:31 AM CDT [facility] SUITE DLCOc 20.19 ml/(min*mm Hg) 05/27/2022 11:31 AM CDT [facility] HB 13.30 g(Hb)/dL 05/27/2022 11:31 AM CDT [facility] VA 6.59 L 05/27/2022 11:31 AM CDT [facility] SUITE FVC 4.28 L 05/27/2022 11:31 AM CDT [facility] SUITE FEV1 3.15 L 05/27/2022 11:31 AM CDT [facility] FEV1/FVC 73.55 % 05/27/2022 11:31 AM CDT [facility] SU[facility] DAI65-24% 2.06 L/s 05/27/2022 11:31 AM CDT [facility] SU[facility] PEF PRE 9.06 L/s 05/27/2022 11:31 AM CDT [facility] SU[facility] PIF PRE 6.77 L/s 05/27/2022 11:31 AM CDT [facility] SU[facility] FEF 50 % FIF 50 PRE 39.49 % 05/27/2022 11:31 AM CDT [facility] SUITE FET PRE 12.61 sec 05/27/2022 11:31 AM CDT [facility] SUBSTANCE POST Albuterol 05/27/2022 11:31 AM CDT [facility] 05/27/2022 8:12 AM CDT Impressions [facility] - 05/27/2022 11:31 AM CDT Normal spirometry with no acute bronchodilator response and normal diffusing capacity. Narrative Procedure Note Julian Martinez M.D., Ph.D. - 05/27/2022 IMPRESSION: Normal spirometry with no acute bronchodilator response and normaldiffusing capacity. Carroll Estrada M.D., Ph.D. PFT ORDERABLES [facility] NA * HOLTER MONITOR - IN CLINIC SPRAY MACHINE OPERATOR (05/20/2022 1:41 PM SEASONAL DRIVER) Min Heart Rate 64 bpm [facility] Max Heart Rate 121 bpm [facility] Mean Heart Rate 84 bpm [facility] VE Total Beats 1431 count [facility] MOME VE Percent Beats 1 percent [facility] SVE Total Beats 6709 count [facility] MOME SVE Percent Beats 6 percent [facility] AF Count 0 count [facility] AF Duration 0 duration [facility] AF [place] 0 percent [facility]OME Symptom Count 7 count [facility]OME 05/19/2022 10:2 3 AM SEASONAL DRIVER Narrative [facility] - 05/23/2022 11:09 AM CDT [place] 1. The basic rhythm was sinus with [...] 7 symptomatic events were noted, which included ??tiredness. The basic rhythm was sinus. ??The heart rate varied from 89 to 118 bpm. Premature ventricular complexes were noted singly, and in one pair. Premature supraventricular complexes were noted singly and in one atrial run ??before, during, and after the events. Solar Project Manager: León Brown / [phone] Procedure Note Alex Nicole M.D. - 05/23/2022 [place] 1. The basic rhythm was sinus with a right bundle branch morphology. Thetotal analyzed time was 23h 30m. The heart rate varied from 64 to 121 bpm.The average HR was 84 bpm. 2. Premature ventricular complexes were noted singly, in trigeminy, and inpairs. There were 1,431 PVCs recorded with a PVC burden of 1%. 3. Premature supraventricular complexes were noted singly, bigeminy, inpairs, and in four 3-15 beat atrial runs with a maximum rate of 179 bpm .There were 6,709 PACs recorded with a PAC burden of 6%. 4. A total of 7 symptomatic events were noted, which includedtiredness. The basic rhythm was sinus. The heart rate varied from 89 to118 bpm. Premature ventricular complexes were noted singly, and in onepair. Premature supraventricular complexes were noted singly and in one atrial run before, during, and after theevents. Solar Project Manager: León Brown / [email or web address] Carorll Estrada M.D., Ph.D. CV CARDIAC SERV ICES PROCEDURES INFOBIONIC MOME NA * PUL Exhaled Nitric Oxide (05/19/2022 9:36 AM SEASONAL DRIVER) Exhaled NO Oral 40 ONBASE Parts per billion (ULN) 39 ONBASE ENOComment Patient takes Albuterol and Flonase ONBASE Carroll Estrada M.D., Ph.D. PFT ORDERABLES Performing Organization Address City/[facility] Co de Phone Number ONBASE NA * (ABNORMAL) Hemoglobin A1c (05/19/2022 7:05 AM SEASONAL DRIVER) Pathologist [facility] Hemoglobin A1c, B 7.7(H) 4.0 - 5.6 % 05/19/2022 11:07 AM SEASONAL DRIVER DTL Comment: Hemoglobin A1c values greater than or equal to 6.5 percent are diagnostic for diabetes mellitus. ??Diagnosis should be confirmed by repeat testing. ??In diabetic patients, HbA1c goals should be discussed with healthcare provider. Blood (Blood, Venous) 05/19/2022 7:05 AM SEASONAL DRIVER 05/19/2022 10:39 AM SEASONAL DRIVER Carroll Estrada M.D., Ph.D. LAB BLOOD ADD-O N Performing Organization Address [facility] de Phone Number [facility] [address] [place] [address], [facility] [address] [place] [address] * Immunoglobulin E (IgE) (05/19/2022 7:05 AM SEASONAL DRIVER) [facility] Immunoglobulin E (IgE), S <2.0 <=214 kU/L 05/19/2022 5:06 PM SEASONAL DRIVER [facility] Blood (Blood, Venous) 05/19/2022 7:05 AM SEASONAL DRIVER 05/19/2022 2:54 PM SEASONAL DRIVER Carroll Estrada M.D., Ph.D. LAB BLOOD ADD-O N Performing Organization Address City/[facility] Co de Phone Number [facility] [address] [place] [address] [facility] [address] [place] [address] * NT-Pro B-Type Natriuretic Peptide (BNP) (05/19/2022 7:05 AM SEASONAL DRIVER) Pathologist [facility] NT-Pro BNP 27 <=540 pg/mL 05/19/2022 11:52 AM SEASONAL DRIVER DTL Comment: NT-proBNP values less than 300 pg/mL have a 99% negative predictive value for excluding acute congestive heart failure. A cutoff of 1200 pg/mL for patients with an eGFR<60 yields a diagnostic sensitivity and specificity of 89% and 72% for acute congestive heart failure. A diagnostic NT-proBNP cutoff of 1800 pg/mL has been suggested in adults over 75 years of age in the absence of renal failure. Blood (Blood, Venous) 05/19/2022 7:05 AM SEASONAL DRIVER 05/19/2022 9:51 AM SEASONAL DRIVER Carroll Estrada M.D., Ph.D. 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
--- OUTSIDE RECORDS SUMMARY | 2023-03-22 10:23 | XMS_ITS | Encounter Summary ---
Author Name Unknown Organization [facility] Address [address] [place] [id number] Care Team Providers Care Javascript Developer Name Role Phone Elsewhere, Pcp Primary Care Provider Unavailabl e Reason for Referral * Outpatient (Routine) - Authorized Specialty Diagnoses / Procedures Referred By Contac t Referred To Contact Diagnoses Dyspnea On Exertion Procedures ECG Heart Rhythm Monitor (Holter) Carroll Estrada M.D., Ph.D. [address] [place] [phone] [facility] Referral ID Status Reason Start Date Expiration Date V isits Requested Visits Authorized [id number] Authorized 05/19/2022 05/19/2023 1 1 L SUPERVISOR Reason for Visit * Outpatient (Routine) - Authorized Specialty Diagnoses / Procedures Referred By Contac t Referred To Contact Diagnoses Dyspnea On Exertion Procedures ECG Heart Rhythm Monitor (Holter) Carroll Estrada M.D., Ph.D. [address] [place] [phone] [facility] Referral ID Status Reason Start Date Expiration Date V isits Requested Visits Authorized [id number] Authorized 05/19/2022 05/19/2023 1 1 Encounter Details Date Type Department Care Team (Latest Contact Info) Description 05/19/2022 10:19 AM JEWEL SUPERVISOR - 05/19/2022 11:59 PM JEWEL SUPERVISOR Hospital Encounter Department of Cardiovascular Diseases in [place], [place] [address] [place] [address] Carroll Estrada M.D., Ph.D. 200 [place] [address] Dyspnea On Exertion Discharge Disposition: Home or Self Care Social [...] How often do you attend chur or oriental orthodox services? More than 4 times per year 05/12/2022 Do you belong to any clubs o r organizations such as yarsani groups, unions, fraternal or athletic groups, or [...] and heating? Not hard at all 05/12/2022 [facility] - Occupational Stress [...] place to sleep or slept in a prison (including now)? No 05/12/2022 Nutrition Answer Date [...] TO INJECT FOUR TIMES DAILY 0 08/21/2021 chlorthalidone (HYGROTON) 25 mg tablet Take 25 [...] mg by mouth at bedtime. 0 04/10/2014 carvediloL (COREG) 6.25 mg tablet Take 1 tablet (6.25 mg total) by mouth 2 (two) times a day with meals. 180 tablet 3 05/19/2022 07/05/2022 docosahexaenoic acid/epa (FISH OIL ORAL) Take 1,200 [...] Procedure Name Priority Date/Time Associated Diagnosis Comments HOLTER MONITOR - IN CLINIC PARTS SALES COUNTERPERSON Routine 05/20/2022 1:41 PM JEWEL SUPERVISOR Dyspnea On Exertion documented in this encounter Results * HOLTER MONITOR - IN CLINIC PARTS SALES COUNTERPERSON (05/20/2022 1:41 PM JEWEL SUPERVISOR) Min Heart Rate 64 bpm INFOBIONIC MOME Max Heart Rate 121 bpm INFOBIONIC MOME Mean Heart Rate 84 bpm INFOBIONIC MOME VE Total Beats 1431 count INFOBIONIC MOME VE Percent Beats 1 percent INFOBIONIC MOME SVE Total Beats 6709 count INFOBIONIC MOME SVE Percent Beats 6 percent INFOBIONIC MOME AF Count 0 count INFOBIONIC MOME AF Duration 0 duration INFOBIONIC MOME AF [place] 0 percent INFOBIONIC MOME Symptom Count 7 count INFOBIONIC MOME 05/19/2022 10:2 3 AM JEWEL SUPERVISOR Narrative INFOBIONIC MOME - 05/23/2022 11:09 AM [...] run ??before, during, and after the events. Cnc Manufacturing Engineer: León Brown [id number] Procedure Note Alex Nicole M.D. - 05/23/2022 [place] 1. The basic rhythm was sinus [...] atrial run before, during, and after theevents. Cnc Manufacturing Engineer: León Brown / [email or web address] Carroll Estrada M.D., Ph.D. CV CARDIAC SERV ICES PROCEDURES INFOBIONIC MOME NA documented in this encounter Visit Diagnoses Diagnosis Dyspnea On Exertion documented in this encounter Care Teams Javascript Developer Relationship Specialty Start Date End Date Elsewhere, Pcp PCP - General Internal Medicine 05/17/22 documented as of this encounter
--- OUTSIDE RECORDS SUMMARY | 2023-03-22 10:23 | XMS_ITS | Encounter Summary ---
Author Name Unknown Organization [facility] Address [address] [place] [address] Care Team Providers Care Energy Director Name Role Phone Elsewhere, Pcp Primary Care Provider Unavailabl e Reason for Referral * Outpatient (Routine) - Closed Specialty Diagnoses / Procedures Referred By Contac t Referred To Contact Cardiovascular Disease Carroll Estrada M.D., Ph.D. [address] [place] [phone] [facility] Referral ID Status Reason Start Date Expiration Date Visits Re quested Visits Authorized [id number] Closed 07/05/2022 07/04/2025 1 1 * Outpatient (Routine) - Closed Specialty Diagnoses / Procedures Referred By Contac t Referred To Contact Nutrition Diagnoses Diabetes Mellitus Type 2 (HCC) Carroll Estrada M.D., Ph.D. [address] [place] [phone] [facility] Referral ID Status Reason Start Date Expiration Date Visits Re quested Visits Authorized [id number] Closed 07/05/2022 07/05/2023 1 1 * Outpatient (Routine) - Closed Specialty Diagnoses / Procedures Referred By Contac t Referred To Contact Endocrinology Diagnoses Diabetes Mellitus Type 2 (HCC) Carroll Estrada M.D., Ph.D. 200 [place] [address] [facility] Referral ID Status Reason Start Date Expiration Date Visits Re quested Visits Authorized [id number] Closed 07/05/2022 07/05/2023 1 1 Reason for Visit * Outpatient (Routine) - Closed Specialty Diagnoses / Procedures Referred By Contac t Referred To Contact Cardiovascular Disease Carroll Estrada M.D., Ph.D. [address] [place] [phone] [facility] Referral ID Status Reason Start Date Expiration Date Visits Re quested Visits Authorized [id number] Closed 05/19/2022 05/18/2025 1 1 Encounter Details Date Type Department Care Team (Latest Contact Info) Description 07/05/2022 11:15 AM CDT Office Visit Department of Cardiovascular Medicine in [place], [place] [address] [place] [address] Carroll Estrada M.D., Ph.D. [address] [place] [phone] Dysfunction Diastolic (Primary Dx); Diabetes Mellitus Type 2 (HCC); Morbid Obesity (HCC) Social History Tobacco Use Types Packs/Day [...] often do you attend chur ch or jewish services? More than 4 times per year 05/12/2022 Do you belong to any clubs o r organizations such as congregation groups, unions, fraternal or athletic groups, or [...] and heating? Not hard at all 05/12/2022 [facility] - [...] money to buy more. Never true 05/13/19 Within the past 12 months, t he [...] place to sleep or slept in a longterm (including now)? No 05/12/2022 Nutrition Answer Date [...] Sign Reading Time Taken Comments Blood Pressure 154/76 07/05/2022 11:15 AM CDT Pulse 79 07/05/2022 11:15 AM CDT Temperature - - Respiratory Rate - - Oxygen Saturation - - Inhaled Oxygen Concentration - - Weight 112 kg (245 lb 13 oz) 07/05/2022 11:15 AM CDT Height 176.1 cm (5' 9.33) 07/05/2022 11:15 AM C DT Body Mass Index 35.95 07/05/2022 11:15 AM CDT documented in this encounter Progress Notes * Carroll Estrada M.D., Ph.D. - 07/05/2022 11:15 AM CDT Images from the original note were not included. GENERAL CARDIOLOGY CLINIC NOTE SUBJECTIVE Mr. Chavo Russell is a 77 y.o. who is following up in CV clinic for fatigue and dyspnea on exertion. Past medical history includes T2DM insulin dependent, VANESSA, HLD, exercise induced asthma, HTN, obesity (BMI > 30), hx of aortic root dilatation, asymptomatic right frontal falcine meningioma. Mr. Russell continues to experience similar fatigue and shortness of breath with exertion as previously. He is not developed any new chest pain or palpitations. No further decrease in exercise capacity. His blood pressures at home are generally in the 140s systolic. I have reviewed and updated the following: Past Medical History, Family History, Social History, and Allergies. Active Home Medications Medication Sig Taking carvediloL (COREG) 12.5 mg tablet Take 1 tablet (12.5 mg total) by mouth 2 (two) times a day with meals. Yes albuterol 90 mcg/actuation inhaler 2 puffs as needed. aspirin [address] tablet Take 81 mg by mouth daily. atorvastatin (LIPITOR) 20 mg tablet Take 1 tablet (20 mg total) by mouth daily. BD Ultra-Fine Mini Pen Needle 31 gauge x 3/16 needle USE TO INJECT FOUR TIMES DAILY chlorthalidone (HYGROTON) 25 mg tablet Take 25 [...] Take 40 mg by mouth at bedtime. sodium chloride-sodium bicarbonate (NEILMED SINUS RINSE) nasal rinse Administer 1 Application into each nostril as needed for congestion. Use water that is either sterile, distilled, or previously boiled for preparations; do not use tap water. REVIEW OF SYSTEMS Pertinent items are noted in HPI; all other review of systems was negative. OBJECTIVE VITAL SIGNS BP 154/76 (BP Location: Right arm, Patient Position: Sitting, Cuff Size: Large) Pulse 79 Ht 176.1 cm Wt 112 kg BMI 35.95 kg/m?? PHYSICAL EXAMINATION Constitutional: Oriented to person, [...] EF 60%, no significant mitral regurgitation 24 holter (05/20/22) 1. The basic rhythm was sinus [...] Rest and Stress (07/05/22) ASSESSMENT / PLAN #1 Diabetes Mellitus Type 2 (HCC) #2 Dysfunction Diastolic #3 Morbid Obesity (HCC) Mr. Russell returns to CV clinic to follow-up on testing for evaluation of his chronic fatigue and shortness of breath with exertion. TTE did not show evidence of structural heart disease but did suggest mild diastolic dysfunction with normal filling pressures at rest. Holter did not show significant arrhythmias the correlated with his symptoms. PET-CT stress with regadenoson did not show evidence of myocardial ischemia. He saw pulmonology; function is normal and his symptoms are likely unrelated to any intrinsic pulmonary disease. We noted today in clinic that he was obese and hypertensivewhich were significant risk factors for developing diastolic heart failure. We discussed evidence of diastolic dysfunction from his echocardiogram and that this along with deconditioning is likely playing a role in causing his symptoms. We discussed management being risk factor reduction and a graduated exercise program to improve his symptoms We discussed adopting a heart healthy diet such as a Mediterranean diet. Mr. Russell was concerned that any change to his diet may also require a change in his insulin and he would like to see endocrinology here at [place] since in the past he is had issues with hypoglycemia. He may also benefit from an SGLT2i or newer GLP 1 agonist therapies which would also improve weight loss and will discuss with endocrinology these options. We also increased his carvedilol. I encouraged Mr. Russell to follow up with his PCP to manage his hypertension. We will follow up in a few months. RECOMMENDATIONS: 1. Increase carvedilol to 12.5 mg BID. Continue lisinopril 40 mg daily. Follow up with PCP on bloodpressure management. 2. Endocrinology diabetes clinic and deputy assessor referral I personally spent 60 minutes in care of the patient today. Time includes both non [id number] patient care. Electronically signed by: Carroll Estrada M.D., Ph.D. documented in this encounter Plan of Treatment Scheduled Referrals Name Type Priority Associated Diagnoses Order Schedule Endocrinology - Diabetes consult (clinic) Outpatient Referral Routine Diabetes Mellitus Type 2 (HCC) Expected: 07/05/2022 (Approximate), Expires: 10/05/2023 Nutrition - Diabetes dietitian medical nutrition therapy consult (clinic) Outpatient Referral Routine Diabetes Mellitus Type 2 (HCC) Expected: 07/05/2022 (Approximate), Expires: 10/05/2023 Cardiovascular Disease office visit (clinic) General Outpatient Referral Routine Expected: 10/04/2022 (Approximate), Expires: 10/05/2023 documented as of this encounter Visit Diagnoses Diagnosis Dysfunction Diastolic- Primary Diabetes Mellitus Type 2 (HCC) Morbid Obesity (HCC) documented in this encounter Care Teams Energy Director Relationship Specialty Start Date End Date Elsewhere, Pcp PCP - General Internal Medicine 05/17/22 documented as of this encounter
--- OUTSIDE RECORDS SUMMARY | 2023-03-22 10:23 | XMS_ITS | Encounter Summary ---
Author Name Unknown Organization [facility] Address [address] [place] [id number] Care Team Providers Care Fur Tinter Name Role Phone Elsewhere, Pcp Primary Care Provider Unavailabl e Reason for Visit * Outpatient (Routine) - Closed Specialty Diagnoses / Procedures Referred By Fern cisneros Referred To Contact Pulmonary Medicine Diagnoses Asthma (HCC) Carroll Estrada M.D., Ph.D. [address] [place] [phone] [facility] Referral ID Status Reason Start Date Expiration Date Visits Re quested Visits Authorized [id number] Closed 05/19/2022 05/19/2023 1 1 Encounter Details Date Type Department Care Team (Latest Contact Info) Description 06/06/2022 9:30 AM CDT Comprehensive Visit Division of Pulmonary Medicine in [place], [place] [address] [place] [phone] Carroll Estrada M.D., Ph.D. [address] [place] [phone] Vincent Alfredo M.D. Drip Post Nasal (Primary Dx); Asthma (HCC); Rhinosinusitis Chronic; Rhinitis Allergic; Apnea Sleep Obstructive Social History Tobacco Use [...] How often do you attend chur or restorationist services? More than 4 times per year 05/12/2022 Do you belong to any clubs o r organizations such as sikhism groups, unions, fraternal or athletic groups, or [...] and heating? Not hard at all 05/12/2022 [facility] - Occupational Stress [...] place to sleep or slept in a custodial (including now)? No 05/12/2022 Nutrition Answer Date [...] Sign Reading Time Taken Comments Blood Pressure 135/68 06/06/2022 9:25 AM CDT Pulse 77 06/06/2022 9:25 AM CDT Temperature 37.1 ??C (98.8 ??F) 06/06/2022 9:25 AM CD T Respiratory Rate - - Oxygen Saturation 98% 06/06/2022 9:25 AM CDT Inhaled Oxygen Concentration - - Weight - - Height - - Body Mass Index - - documented in this encounter Consult Notes * Vincent Alfredo M.D. - 06/06/2022 9:30 AM CDT SUBJECTIVE CHIEF COMPLAINT / REASON FOR CONSULT Asthma Referred by: Dr. Sean Alicea MD PhD HISTORY OF PRESENT ILLNESS Chavo Russell is a 77 y.o. male who presents for evaluation and treatment of Asthma. 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 Patient stated that he was diagnosed with asthma about forty years ago. It seems this diagnosis was made based on subjective symptoms and no official PFTS ever been obtained. He reports History of seasonal and the perineal allergies. Allergic symptoms worse in the spring. He reported issues with flaring of his asthma symptoms After exposureto allergies or exercise. Specific allergens noted a dust, and pollen. This usually least a issues with coughing and some minimal wheezing and often relieved with albuterol. He stated that over the past week, he has had to use His albuterol 2/7 days. He denies any nocturnal coughing episodes. He reported chronic issues with rhinosinusitis. He reported having a remote sinus surgery. He uses Flonase every other day for his rhinitis symptoms. He denies any issues with asthma exacerbation requiringany hospitalization. He denies any angina related chest pain. He denies any orthopnea, paroxysmal nocturnal dyspnea, or lower extremity edema. He is currently on omeprazole for acid reflux and denies any GERD related symptoms. It should be noted that the main reason that the currently at [facility] this time is because he was recently admitted in February of 2022 for influenza infection in [place]. He stated that he has not quite been back to his baseline since that hospitalization. He reports issues with fatigue andexertion with just limited activities. He also otherwise has been quite sedentary. He reported withshortness of breath and fatigue and stated with exertion, but can walk about four blocks without stopping for a rest. From a diagnostic workup standpoint, CBC obtained on 05/19 showed a normal hemoglobin at 13.3. No peripheral eosinophilia was noted. His IgE level was less than 2. His exhaled nitric oxide level was 40. And his PFT showed normal spirometry with no acute bronchodilator response and normal diffusion capacity. He is had a TTE on 05/27/2022 that showed normal left ventricular chamber size with an EF of 66%. He did have grade 1 on 3 left ventricular diastolic dysfunction otherwise no significant valvular issues. OBJECTIVE PHYSICAL EXAM Normal physical exam. General appearance: alert, no distress, and obese Eyes: conjunctivae/corneas clear Throat: normal findings: soft palate, uvula, and tonsils normal Lungs: clear to auscultation bilaterally Heart: regular rate and rhythm, S1, S2 normal, no murmur, click, rub or gallop Abdomen: soft, non-tender; bowel sounds normal; no masses, no organomegaly Extremities: no clubbing, cyanosis or edema Pulses: 2+ and symmetric Skin: Skin color, texture, turgor normal. No rashes or lesions. DIAGNOSTIC REVIEW Prior visit Diagnostic workup reviewed ASSESSMENT / PLAN ASSESSMENT Briefly, this is a 77-year-old gentleman that was referred to us by our cardiology colleagues for evaluation of possible underlying asthma playing a role in his recent issues with fatigue and and some shortness of breath with exertion. Patient apparently was diagnosed with asthma about 40 years agomainly based in symptoms and never had a PFT to confirm diagnosis. He is intermittently been on albuterol over the years. He does seasonal and perennial allergies and chronic rhinosinusitis symptoms for which he is previously had surgery/on Flonase. We discussed diagnostic workup with the patient. We discussed with him that upon review of his PFT, we do not think that he has some asthma. We also do not think that there is currently any pulmonary explanation for his symptoms. We do believe that is worthwhile to arm do a rhinolaryngoscopy study to rule out any structural issues that may be causing his chronic cough issues. Additionally, given that fatigue is most predominant symptoms and alsogiven that he is gained some weight over the years without any recent changes in his CPAP, we will like to do an overnight oximetry while on his current CPAP settings to rule out any abnormal sleep breathing related disorders. We discussed with him that a lot of his symptoms is likely secondary to deconditioning. We advised the patient to pursue gentle graded exercise program. PLAN #Chronic rhinosinusitis #Postnasal drip #Coughing #Obstructive sleep apnea on CPAP #Seasonal and perennial allergies #Morbid obesity #Recent influenza infection in February of 2022 requiring hospitalization #GERD Follow-up plans: Pulmonary rhinolaryngoscopy Consult Overnight oximetry once CPAP Gentle Graded exercise Vincent Alfredo M.D. PGY-3 Patient was seen and staffed with Dr. Uriel MD. * Lloyd Trevino Jr., M.D. - 06/06/2022 9:30 AM CDT CHIEF COMPLAINT / REASON FOR VISIT I reviewed the evaluation and recommendations documented in today's note from Dr. Vincent Alfredo M.D. and agree and discussed this in detail with the patient and family. ASSESSMENT / PLAN #1 Chronic rhinosinusitis #2 Obstructive sleep apnea #3 Probable deconditioning We discussed recommendation in detail with the patient and family. His pulmonary function testing is normal. With his ongoing nasal congestion despite Flonase we discussed doing rhinolaryngoscopy andhe may be a candidate for the [place] triple nasal spray. He is not had his CPAP checked in some time and we recommend doing an overnight oximetry with his current CPAP settings and if this is abnormal we will make referral [facility]. He has follow-up stress testing through Cardiology. PATIENT EDUCATION Ready to learn, no apparent learning barriers were identified; learning preferences include listening. Explained diagnosis and treatment plan; patient expressed understanding of the content. documented in this encounter Plan of Treatment Not on file documented as of this encounter Results * PUL RHINOLARYNGOSCOPY (07/06/2022 [...] Jr., M.D. PFT ORDERABLE S MMODAL NA * Home Overnight Oximetry (07/04/2022) 07/04/2022 Impressions PELON JALLOH - 07/06/2022 7:18 AM CDT Overnight oximetry was performed on home CPAP settings and room air. ??The patient denied alcohol or sedative medication on the night of the study, and stated quality of sleep the same as usual. ??[place] Sleepiness Scale was 7. ??Baseline oxygen saturation was 95%, with mean overnight saturation ranging between 94 and 96%. ??Minimal oscillatory variations are most likely artifact related. Impression: ??No significant desaturation or convincing evidence of residual sleep disordered breathing on current CPAP settings. Physician: Ta Bell M.D. [id number] Narrative Procedure Note Ta Bell M.D. - 07/06/2022 IMPRESSION: Overnight oximetry was performed on home CPAP settings and room air. Thepatient denied alcohol or sedative medication on the night of the study,and stated quality of sleep the same as usual. [place] Sleepiness Scalewas 7. Baseline oxygen saturation was 95%, with mean overnight saturation ranging between 94 and96%. Minimal oscillatory variations are most likely artifact related. Impression: No significant desaturation or convincing evidence ofresidual sleep disordered breathing on current CPAP settings. Physician: Ta Bell M.D. [id number] Lloyd Trevino Jr., M.D. PFT ORDERABLE S [facility] Organization Address City/State/ZIP Co de Phone Number [facility] EAP documented in this encounter Visit Diagnoses Diagnosis Drip Post Nasal- Primary Asthma (HCC) Rhinosinusitis Chronic Rhinitis Allergic Apnea Sleep Obstructive Apnea Sleep Obstructive Drip Post Nasal Rhinosinusitis Chronic Rhinitis Allergic documented in this encounter Care Teams Fur Tinter Relationship Specialty Start Date End Date Elsewhere, Pcp PCP - General Internal Medicine 05/17/22 documented as of this encounter
--- OUTSIDE RECORDS SUMMARY | 2023-03-22 10:23 | XMS_ITS | Encounter Summary ---
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 [address] [place] [phone] [facility] Referral ID Status Reason Start Date Expiration Date Visits Re quested Visits Authorized [id number] Closed 05/19/2022 05/19/2023 1 1 Reason for Visit * Outpatient (Routine) - Closed Specialty Diagnoses / Procedures Referred By Contghassan t Referred To Contact Diagnoses Atherosclerotic [facility] [place] Coronary Artery Without Angina Pectoris Dyspnea On Exertion Procedures Echo Transthoracic (TTE) Carroll Estrada M.D., Ph.D. [address] [place] [phone] [facility] Referral ID Status Reason Start Date Expiration Date Visits Re quested Visits Authorized [id number] Closed 05/19/2022 05/19/2023 1 1 Encounter Details Date Type Department Care Team (Latest Contact Info) Description 05/27/2022 12:13 PM CDT - 05/27/2022 11:59 PM CDT Hospital Encounter Department of Cardiovascular Diseases in [place], [place] 200 [place] [phone] Carroll Estrada M.D., Ph.D. 200 [place] [phone] Atherosclerotic [facility] [place] Coronary Artery Without Angina Pectoris; Dyspnea On Exertion Discharge Disposition: Home or [...] often do you attend chur ch or sabianist services? More than 4 times per year 05/12/2022 Do you belong to any clubs o r organizations such as denominational groups, unions, fraternal or athletic groups, or [...] and heating? Not hard at all 05/12/2022 [facility] Questionnaire Answer Date Recorded [...] place to sleep or slept in a mcc (including now)? No 05/12/2022 Nutrition Answer Date [...] Procedure Name Priority Date/Time Associated Diagnosis Comments (TTE) 2D ECHO DOPPLER COLOR Routine 05/27/2022 1:55 PM CDT Atherosclerotic [facility] [place] Coronary Artery Without Angina Pectoris Dyspnea On Exertion documented in this encounter Results * (TTE) 2D ECHO DOPPLER COLOR (05/27/2022 1:55 PM CDT) Ejection Fraction 69 [facility] CV EIMS Sinus [...] Estrada M.D., Ph.D. CV ECHO PROCEDU RES documented in this encounter Visit Diagnoses Diagnosis Atherosclerotic [facility] Disease [facility] [place] Coronary Artery Without Angina Pectoris Dyspnea On Exertion documented in this encounter Care Teams Clinical Specialist Medical Device Relationship Specialty Start Date End Date Elsewhere, Pcp PCP - General Internal Medicine 05/17/22 documented as of this encounter
--- OUTSIDE RECORDS SUMMARY | 2023-03-22 10:24 | XMS_ITS | Clinical Summary ---
Author Name Unknown Organization [facility] Address [place], [place] [address] Care Team Providers Care Fertilizer Loader Name Role Phone Tulio Ortiz MD Primary Care Provider [phone] Allergies Active Allergy Reactions Criticality Noted Date Comments Allergenic Extracts Shortness Of Breath 015 House Dust Shortness Of Breath 04/10/2014 Medications Medication Sig Dispensed Refills Start Date End Date Status lisinopril (PRINIVIL; ZESTRIL) 40 mg tablet Take 1 tablet by mouth once daily. 0 04/10/2014 Active fenofibrate nanocrystallized (TRICOR) 145 mg tablet Take 1 tablet by mouth once daily with a meal. 0 04/10/2014 Active omeprazole (PRILOSEC) 40 mg Delayed-Release capsule Take 1 capsule by mouth once daily. 0 04/10/2014 Active atorvastatin (LIPITOR) 10 mg tablet Take 1 tablet by mouth once daily. 0 04/10/2014 Active metFORMIN (GLUCOPHAGE) 1,000 mg tablet Take 1 tablet by mouth 2 times daily with meals. 0 04/10/2014 Active glipiZIDE (GLUCOTROL) 5 mg tablet Take 1 tablet by mouth once daily before a meal. 0 04/10/2014 Active aspirin (ECOTRIN) 81 mg enteric coated tablet Take 1 tablet by mouth once daily with a meal. 0 04/10/2014 Active fluticasone (50 mcg per actuation) nasal solution (FLONASE) Inhale 1 [place] into both nostrils once daily. 1 Bottle 0 04/10/2014 Active fluocinonide 0.05% topical (LIDEX) 0.05 % gel Apply topically to affected area(s) 2 times daily. 1 Tube 0 04/10/2014 Active Social History Tobacco Use Types Packs/Day Years Used Date Smoking Tobacco: Never Smokeless Tobacco: Never Alcohol Use Standard Drinks/Week Comments Yes 0 (1 standard drink = 0.6 oz pur e alcohol) Sex and Gender Information Value Date Recorded Sex Assigned at Not on file Gender Identity Not on file Sexual Orientation Not on file Obstetrics History Last Filed Vital Signs Vital Sign Reading Time Taken Comments Blood Pressure 131/82 01/25/2017 2:30 PM OVEN STRIPPER Pulse 87 01/25/2017 2:30 PM OVEN STRIPPER Temperature - - Respiratory Rate - - Oxygen Saturation 97% 01/25/2017 2:30 PM OVEN STRIPPER Inhaled Oxygen Concentration - - Weight - - Height - - Body Mass Index - - Plan of Treatment Health Maintenance Due Date Last Done Comments Tdap 1957 Depression screening for age 12+ 1958 BMI (ht and wt on same day) for age 18+ 1964 Hepatitis C screening for age 18-79 1964 Tetanus booster 1966 Zoster (shingles) series for age 50+ (1 of 2) 04/28/18 97 Pneumococcal series for age 65+ (1 of 1 - PCV) 012 COVID-19 vaccine series (2 - season) 3 01/08/2021 Influenza for age 65+ 11/11/2022 Care Teams Fertilizer Loader Relationship Specialty Start Date End Date Tulio Ortiz MD [address] [place] [phone] PCP - General Family Practice 06/28/21
--- OUTSIDE RECORDS SUMMARY | 2023-03-22 10:24 | XMS_ITS | Encounter Summary ---
Author Name Unknown Organization [facility] Address [address] [place] [address] Care Team Providers Care Explosive Operator Grenade Name Role Phone Unavailable Primary Care Provider Unavailabl e Reason for Referral * Outpatient (Routine) - Closed Specialty Diagnoses / Procedures Referred By Fern cisneros Referred To Contact Diagnoses Atherosclerotic Heart Disease Of [place] Coronary Artery Without Angina Pectoris Fatigue Procedures ECG 12 Lead Jessica Flores P.A.-CRosa [facility] Referral ID Status Reason Start Date Expiration Date Visits Re quested Visits Authorized [id number] Closed 04/11/2022 04/11/2023 1 1 IESEL OPERATIONS MANAGER Reason for Visit * Reason Comments Triage Encounter Details Date Type Department Care Team ([facility] st Contact Info) Description 04/04/2022 Clinical Communication Department of Cardiovascular Medicine in [place], [place] [address] [place] [address] Prescheduling, Provider Triage Social History Tobacco Use Types Packs/Day Years Used Date Smoking Tobacco: Never Smokeless Tobacco: Never Humiliation, Afraid, Rape, and Kick questionnair e Answer Date Recorded Within the last year, have y ou been afraid of your partner or ex-partner? No 06/16/2021 Emotionally Abused Not on file 06/16/2021 Within the last year, have y ou been kicked, hit, slapped, or otherwise physically hurt by your partner or ex-partner? No 06/16/2021 Within the last year, have y ou been raped or forced to have any kind of sexual activity by your partner or ex-partner? No 06/16/2021 Social Connection and Isolat ion Panel [NHANES] Answer Date Recorded In a typical week, how many times do you talk on the phone with family, friends, or neighbors? More than three times a week 06/16/2021 How often do you get togethe r with friends or relatives? More than three times a week 06/16/2021 How often do you attend chur or samaritan services? More than 4 times per year 06/16/2021 Do you belong to any clubs o r organizations such as cheondoism groups, unions, fraternal or athletic groups, or school groups? Yes 06/16/2021 How often do you attend meet ings of the clubs or organizations you belong to? More than 4 times per year 06/16/2021 Are you , , di vorced, , never , or living with a partner? 06/16/2021 AUDIT-C Answer Date Recorded Q1: How often do you have a drink containing alc ohol? 2-4 times a month 06/16/2021 Q2: How many drinks containi ng alcohol do you have on a typical day when you are drinking? 1 or 2 06/16/2021 Q3: How often do you have si x or more drinks on one occasion? Never 06/16/2021 Overall Financial Resource Strain (CARDIA) Answe r Date Recorded How hard is it for you to pa y for the very basics like food, housing, medical care, and heating? Not hard at all 06/16/2021 [facility] - Occupational Stress Questionnaire Answer Date Recorded Do you feel stress - tense, restless, nervous, or anxious, or unable to sleep at night because your mind is troubled all the time - these days? Only a little 06/16/2021 Exercise Vital Sign Answer Date Recorde d On average, how many days pe r week do you engage in moderate to strenuous exercise (like a brisk walk)? 2 days 06/16/2021 On average, how many minutes do you engage in exercise at this level? 30 min 06/16/2021 Hunger Vital Sign Answer Date Recorded Within the past 12 months, y ou worried that your food would run out before you got the money to buy more. Never true 06/17/19 Within the past 12 months, t he food you bought just didn't last and you didn't have money to get more. Never true 06/16/2021 PRAPARE - Transportation Answer Date Re corded In the past 12 months, has l ack of transportation kept you from medical appointments or from getting medications? No 08/2021 In the past 12 months, has l ack of transportation kept you from meetings, work, or from getting things needed for daily living? No 06/16/2021 Housing Stability Vital Sign Answer Nelson e Recorded In the last 12 months, was t here a time when you were not able to pay the mortgage or rent on time? No 06/16/2021 In the last 12 months, how many places have you lived? 1 06/16/2021 In the last 12 months, was t here a time when you did not have a steady place to sleep or slept in a prison (including now)? No 06/16/2021 Nutrition Answer Date Recorded Nutrition: EVOO Fat Source Yes 06/16 On average, how many serving s of fruits and vegetables do you eat per day (serving size is equal to 1 cup or approximately the size of a tennis ball)? 0-1 06/16/2021 Dental Answer Date Recorded Dental: Regular Dentist Yes 06/17/19 Employment Answer Date Recorded Employment status Retired 06/16/2021 Education Answer Date Recorded What is the highest level of school you have completed or the highest degree you have received? Doctorate 06/16/2021 Sex and Gender Information Value Date Recorded Sex Assigned at Male 06/16/2021 2:26 PM CDT Gender Identity Male 06/16/2021 2:26 PM CDT Sexual Orientation Straight 06/16/2021 2: 26 PM CDT documented as of this encounter Miscellaneous Notes * Addendum Note - Alvarado Miller, R.N. - 04/11/2022 7:29 AM CSTAddended by: ALVARADO MILLER on: 04/11/2022 07:29 AM Modules accepted: Orders IESEL OPERATIONS MANAGER * Telephone Encounter - Jessica Flores P.A.-C. - 04/09/2022 9:53 AM BIODIESEL OPERATIONS MANAGER Images from the original note were not included. Pre-appointment GENERAL CARDIOLOGY TRIAGE/RECORD REVIEW: The following information has been collected from review of available medical records as of 04/09/22 for Triage purposes and has not been verified by the patient. The Appointment Triage Team does notestablish a relationship with the patient, nor manage the patient's care outside of initial review for the purposes of appointment triage. 76 y.o. y/o male from [address] [place] [phone] Provider-referred: Tulio Ortiz M.D. Clinical Question: coronary artery disease and fatigue for 5 months Document Viewer PMHx: - T2DM - VANESSA - hyperlipidemia - GERD - Exercise induced Asthma - Hypertension - ED - CAD - BMI > 30 - Aortic Root Dilation IM Note 03/24/2022 Cardiac Catheterization 06/2003 Echo Stress 06/29/2021 Final Impressions: 1. Negative [...] an estimated EF of 70 to 75%. AMILCAR TRIAGE RECOMMENDATIONS: - general cardiology - BMP, CBC without diff, TSH, lipids - ECG Referral Triage? accepted IMAGES/Results needed for consult: - resting echo images from stress echo 06/29/2021 - any chest xray result or images from 2021 or 2022 Jessica Flores PA-C IESEL OPERATIONS MANAGER * Telephone Encounter - Hansa Vila - 04/04/2022 4:11 PM CST General Cardiology Triage Questionnaire Information gathered by PASS upon initial Appointment Request Self-Referral or Provider Referral: Provider Referral Primary Cardiac Concern: Atherosclerotic HD of [place] Coronary artery w/o angina pectoris. Pt also says dense calcification of the LAD. When did your symptoms first start? About last 5 mos. Sick off and on with bronchitis. In hospital in [place] with flu/bronchitis 6 wks ago.Fatigue has been ongoing the last 5 months. Gets tired going up stairs the last couple years, but really noticeable the last 5 months. Does anything make your symptoms better or worse? Sitting still and doing nothing makes it better. When do you feel the symptoms (random, when exercising, during the night, etc.)? When moving around too much. Even walking through the house will feel the fatigue. Went today and drove son to an appt and had lunch and shopping and nearly exhausted. Do you have any limitations in physical activity? Yes. Doesn't do much physical activity any longer. Unable to go to gym. [facility]. Not many tasks around the house. Do you have any other cardiac concerns that you would like addressed? No. About 12 yrs + had a test at [facility] (due to CP) had ECG or XR and identified a couple [id number]% obstructed at that time. Last year had stress ECHO but doesn't remember results but thought they were inconclusive. Have you ever had a prior evaluation or treatment of these concerns? No Have you had any of the following cardiac tests/procedures within the last 2 years? ECG/EKG, Echocardiogram, Heart Rhythm Monitor (holter monitor, event monitor, prolonged director biostatistics, etc.) , and Stress Test Have you ever been diagnosed with any of the following: Heart Conditions: Coronary Artery Disease/Heart Attack: Other Breathing conditions: Asthma and Sleep Apnea Primary Care Provider: (name/facility) Dr. Tulio Ortiz; [place], [place] Planning Management It Specialist: (name/facility) None. Status of Records: (Requested, in Care Everywhere, etc.) in Care Everywhere and Doc Viewer Other: N/A IESEL OPERATIONS MANAGER documented in this encounter Plan of Treatment Not on file documented as of this encounter Results * ECG 12 Lead (05/19/2022 7:30 AM BIODIESEL OPERATIONS MANAGER) Ventricular Rate ECG/Min 97 BPM MUSE IA Interval 172 ms MUSE QRSD Interval 146 ms MUSE QT Interval 378 ms MUSE QTC Interval 480 ms MUSE P [place] 56 degrees MUSE R [place] -18 degrees MUSE T Wave [place] 19 degrees MUSE 05/19/2022 7:30 AM BIODIESEL OPERATIONS MANAGER 05/19/2022 7:36 AM BIODIESEL OPERATIONS MANAGER Impressions MUSE - 05/19/2022 7:36 AM BIODIESEL OPERATIONS MANAGER Normal sinus rhythm 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 - 05/19/2022 IMPRESSION: Normal sinus rhythm Right bundle branch block with secondary ST-T abnormalities No previous ECGs available Reviewed by JEFFERSON Wells Jessica Flores P.A.-C. ECG ORDERABLES MUSE NA * (ABNORMAL) Lipid Panel (05/19/2022 7:07 AM BIODIESEL OPERATIONS MANAGER) Triglycerides 422(H) mg/dL 05/19/2022 8:10 AM BIODIESEL OPERATIONS MANAGER DTL Comment: ----REFERENCE VALUE---- Normal: <150 mg/dL Borderline High: 150-199 mg/dL High: 200-499 mg/dL Very High: > or =500 mg/dL Cholesterol, Total 176 mg/dL 2022 8:42 AM BIODIESEL OPERATIONS MANAGER DTL Comment: ----REFERENCE VALUE---- Desirable: < 200 mg/dL Borderline High: 200 - 239 mg/dL High: > or = 240 mg/dL Cholesterol, LDL, Calculated 80 mg/dL 05/19/2022 8:42 AM BIODIESEL OPERATIONS MANAGER DTL Comment: ----REFERENCE VALUE---- Desirable: <100 mg/dL Above Desirable: 100-129 mg/dL Borderline High: 130-159 mg/dL High: 160-189 mg/dL Very High: >=190 mg/dL ----ADDITIONAL INFORMATION---- LDL cholesterol calculated using the Lassiter/NIH equation. Cholesterol, HDL, S 28(L) >=40 mg/dL 05/19/2022 8:10 AM BIODIESEL OPERATIONS MANAGER DTL Cholesterol, Non-HDL, Calculated 148 mg/dL 05/19/2022 8:42 AM BIODIESEL OPERATIONS MANAGER DTL Comment: ----REFERENCE VALUE---- Desirable: <130 mg/dL Above Desirable: 130-159 mg/dL Borderline High: 160-189 mg/dL High: 190-219 mg/dL Very High: > or =220 mg/dL Fasting (8 HR or more) No 05/19/2022 7:44 AM BIODIESEL OPERATIONS MANAGER DTL Blood (Blood, Venous) 05/19/2022 7:07 AM BIODIESEL OPERATIONS MANAGER 05/19/2022 7:44 AM BIODIESEL OPERATIONS MANAGER Jessica Flores P.A.-C. LAB BLOOD ADD-O N Performing Organization Address [facility] Co de Phone Number [facility] [address] [place] [address] * (ABNORMAL) Thyroid Function [place] (05/19/2022 7:07 AM BIODIESEL OPERATIONS MANAGER) TSH, Sensitive 4.8(H) 0.3 - 4.2 mIU/L 05/19/2022 8:10 AM BIODIESEL OPERATIONS MANAGER DTL Blood (Blood, Venous) 05/19/2022 7:07 AM BIODIESEL OPERATIONS MANAGER 05/19/2022 7:44 AM BIODIESEL OPERATIONS MANAGER Jessica Flores P.A.-C. LAB BLOOD ADD-O N Performing Organization Address [facility]/ZIP Co de Phone Number [facility] [address] [place] [address] * CBC with Differential, Blood (05/19/2022 7:07 AM BIODIESEL OPERATIONS MANAGER) Hemoglobin 13.3 13.2 - 16.6 g/dL 05/19/2022 7:46 AM BIODIESEL OPERATIONS MANAGER DTL Hematocrit 40.2 38.3 - 48.6 % 05/19/2022 7:46 AM BIODIESEL OPERATIONS MANAGER DTL Erythrocytes 4.49 4.35 - 5.65 x10(12)/L 05/19/2022 7:46 AM BIODIESEL OPERATIONS MANAGER DTL MCV 89.5 78.2 - 97.9 fL 05/19/2022 7:46 AM BIODIESEL OPERATIONS MANAGER DTL RBC Distrib Width 14.4 11.8 - 14.5 % 05/19/2022 7:46 AM BIODIESEL OPERATIONS MANAGER DTL Platelet Count 195 135 - 317 x10(9)/L 05/19/2022 7:46 AM BIODIESEL OPERATIONS MANAGER DTL Leukocytes 5.2 3.4 - 9.6 x10(9)/L 05/19/2022 7:46 AM BIODIESEL OPERATIONS MANAGER DTL Neutrophils 3.17 1.56 - 6.45 x10(9)/L 05/19/2022 7:46 AM BIODIESEL OPERATIONS MANAGER DTL Lymphocytes 1.02 0.95 - 3.07 x10(9)/L 05/19/2022 7:46 AM BIODIESEL OPERATIONS MANAGER DTL Monocytes 0.52 0.26 - 0.81 x10(9)/L 05/19/2022 7:46 AM BIODIESEL OPERATIONS MANAGER DTL Eosinophils 0.43 0.03 - 0.48 x10(9)/L 05/19/2022 7:46 AM BIODIESEL OPERATIONS MANAGER DTL Basophils 0.06 0.01 - 0.08 x10(9)/L 05/19/2022 7:46 AM BIODIESEL OPERATIONS MANAGER DTL Blood (Blood, Venous) 05/19/2022 7:07 AM BIODIESEL OPERATIONS MANAGER 05/19/2022 7:33 AM BIODIESEL OPERATIONS MANAGER Jessica Flores P.A.-C. LAB BLOOD ADD-O N [facility] [address] [place] [address], [facility] [address] [place] [address] * (ABNORMAL) Basic Metabolic Panel (05/19/2022 7:07 AM BIODIESEL OPERATIONS MANAGER) Potassium, S 4.4 3.6 - 5.2 mmol/L 05/19/2022 8:10 AM BIODIESEL OPERATIONS MANAGER DTL Sodium, S 138 135 - 145 mmol/L 05/19/2022 8:10 AM BIODIESEL OPERATIONS MANAGER DTL Chloride, S 100 98 - 107 mmol/L 05/19/2022 8:10 AM BIODIESEL OPERATIONS MANAGER DTL Bicarbonate, S 24 22 - 29 mmol/L 05/19/2022 8:10 AM BIODIESEL OPERATIONS MANAGER DTL Anion Gap 14 7 - 15 05/19/2022 8:10 AM BIODIESEL OPERATIONS MANAGER DTL BUN (Blood Urea Nitrogen), S 22 8 - 24 mg/dL 05/19/2022 8:10 AM BIODIESEL OPERATIONS MANAGER DTL Creatinine 1.47(H) 0.74 - 1.35 mg/dL 05/19/2022 8:10 AM BIODIESEL OPERATIONS MANAGER DTL Estimated GFR (eGFR) 49(L) >=60 mL/min/BSA 05/19/2022 8:10 AM BIODIESEL OPERATIONS MANAGER DTL Comment: Estimated GFR calculated using the 2020 CKD_EPI creatinine equation. Calcium, Total, S 10.0 8.8 - 10.2 mg/dL 05/19/2022 8:10 AM BIODIESEL OPERATIONS MANAGER DTL Glucose, S 173(H) 70 - 140 mg/dL 05/19/2022 8:10 AM BIODIESEL OPERATIONS MANAGER DTL Blood (Blood, Venous) 05/19/2022 7:07 AM BIODIESEL OPERATIONS MANAGER 05/19/2022 7:44 AM BIODIESEL OPERATIONS MANAGER Jessica Flores P.A.-C. LAB BLOOD ADD-O N [facility] [address] [place] [address], [facility] [address] [place] [address] documented in this encounter Visit Diagnoses Diagnosis Atherosclerotic Heart Disease Of [place] Coronary Artery Without Angina Pectoris- Primary Fatigue documented in this encounter
--- OUTSIDE RECORDS SUMMARY | 2023-03-22 10:24 | XMS_ITS | Encounter Summary ---
Author Name Unknown Organization [facility] Address [address] [place] [address] Care Team Providers Care Contract Admin Name Role Phone Elsewhere, Pcp Primary Care Provider Unavailabl e Encounter Details Date Type Department Care Team (Latest Contact Info) Description 05/19/2022 6:55 AM CLERK OF SCALES - 05/19/2022 10:18 AM [facility] Hospital Encounter Department of Laboratory Medicine and Pathology, [facility] in [place], [place] [address] [place] [address] Jessica Flores, P.A.-C. Atherosclerotic Heart Disease Of [place] Coronary Artery Without Angina Pectoris; Fatigue Discharge Disposition: Home or Self Care Social [...] How often do you attend chur or baptist services? More than 4 times per year 05/12/2022 Do you belong to any clubs o r organizations such as uatsdin groups, unions, fraternal or athletic groups, or [...] and heating? Not hard at all 05/12/2022 [facility] of Occupat ional Health - Occupational [...] 81 mg by mouth daily. 0 04/10/2014 BD Ultra-Fine Mini Pen Needle 31 gauge [...] Procedure Name Priority Date/Time Associated Diagnosis Comments AL T4 FREE Routine 05/19/2022 7:07 AM CLERK OF SCALES LIPID PANEL, S Routine 05/19/2022 7:07 AM CLERK OF SCALES Atherosclerotic Heart Disease Of [place] Coronary Artery Without Angina Pectoris Fatigue THYROID FUNCTION CASCADE, S Routine 05/19/2022 7:07 AM CLERK OF SCALES Atherosclerotic Heart Disease Of [place] Coronary Artery Without Angina Pectoris Fatigue THYROPEROXIDASE (TPO) ABS, S Routine 05/19/2022 7:07 AM CLERK OF SCALES CBC WITH DIFFERENTIAL, B Routine 05/19/2022 7:07 AM CLERK OF SCALES Atherosclerotic Heart Disease Of [place] Coronary Artery Without Angina Pectoris Fatigue BASIC METABOLIC PANEL, S/P Routine 05/19/2022 7:07 AM CLERK OF SCALES Atherosclerotic Heart Disease Of [place] Coronary Artery Without Angina Pectoris Fatigue documented in this encounter Results * T4 (Thyroxine), Free, Serum (05/19/2022 7:07 AM CLERK OF SCALES) T4 (Thyroxine), Free, S 1.1 0.9 - 1.7 ng/dL 05/19/2022 8:30 AM CLERK OF SCALES DTL Blood 05/19/2022 7:07 AM CLERK OF SCALES 05/19/2022 7:44 AM CLERK OF SCALES Jessica Flores P.A.-C. LAB BLOOD ADD-O N Performing Organization Address [facility]/ZIP Co de Phone Number [address] [place] [address] * Thyroperoxidase (TPO) Antibodies (05/19/2022 7:07 AM CLERK OF SCALES) [facility] Thyroperoxidase Ab, S <15.0 <34.0 IU/mL 05/19/2022 8:30 AM CLERK OF SCALES DT Blood 05/19/2022 7:07 AM CLERK OF SCALES 05/19/2022 7:44 AM CLERK OF SCALES Jessica SmartARosa-C. LAB BLOOD ADD-O N Performing Organization Address City/[facility]/ZIP Co de Phone Number [facility] [address] [place] [address] * (ABNORMAL) Lipid Panel (05/19/2022 7:07 AM CLERK OF SCALES) Pathologist [facility] Triglycerides 422(H) mg/dL 05/19/2022 8:10 AM CLERK OF SCALES DT Comment: ----REFERENCE VALUE---- Normal: <150 mg/dL Borderline High: 150-199 mg/dL High: 200-499 mg/dL Very High: > or =500 mg/dL Cholesterol, Total 176 mg/dL 2022 8:42 AM CLERK OF SCALES DTL Comment: ----REFERENCE VALUE---- Desirable: < 200 mg/dL Borderline High: 200 - 239 mg/dL High: > or = 240 mg/dL Cholesterol, LDL, Calculated 80 mg/dL 05/19/2022 8:42 AM CLERK OF SCALES DTL Comment: ----REFERENCE VALUE---- Desirable: <100 mg/dL Above Desirable: 100-129 mg/dL Borderline High: 130-159 mg/dL High: 160-189 mg/dL Very High: >=190 mg/dL ----ADDITIONAL INFORMATION---- LDL cholesterol calculated using the Lassiter/NIH equation. Cholesterol, HDL, S 28(L) >=40 mg/dL 05/19/2022 8:10 AM CLERK OF SCALES DTL Cholesterol, Non-HDL, Calculated 148 mg/dL 05/19/2022 8:42 AM CLERK OF SCALES DTL Comment: ----REFERENCE VALUE---- Desirable: <130 mg/dL Above Desirable: 130-159 mg/dL Borderline High: 160-189 mg/dL High: 190-219 mg/dL Very High: > or =220 mg/dL Fasting (8 HR or more) No 05/19/2022 7:44 AM CLERK OF SCALES DTL Blood (Blood, Venous) 05/19/2022 7:07 AM CLERK OF SCALES 05/19/2022 7:44 AM CLERK OF SCALES Jessica Flores P.A.-C. LAB BLOOD ADD-O N [facility] [address] [place] [address], [facility] [address] [place] [address] * (ABNORMAL) Thyroid Function [place] (05/19/2022 7:07 AM CLERK OF SCALES) TSH, Sensitive 4.8(H) 0.3 - 4.2 mIU/L 05/19/2022 8:10 AM CLERK OF SCALES DTL Blood (Blood, Venous) 05/19/2022 7:07 AM CLERK OF SCALES 05/19/2022 7:44 AM CLERK OF SCALES Jessica Flores P.A.-C. LAB BLOOD ADD-O N [facility] [address] [place] [address], [facility] DTL [facility] [address] [place] [address] * CBC with Differential, Blood (05/19/2022 7:07 AM CLERK OF SCALES) Hemoglobin 13.3 13.2 - 16.6 g/dL 05/19/2022 7:46 AM CLERK OF SCALES DTL Hematocrit 40.2 38.3 - 48.6 % 05/19/2022 7:46 AM CLERK OF SCALES DTL Erythrocytes 4.49 4.35 - 5.65 x10(12)/L 05/19/2022 7:46 AM CLERK OF SCALES DTL MCV 89.5 78.2 - 97.9 fL 05/19/2022 7:46 AM CLERK OF SCALES DTL RBC Distrib Width 14.4 11.8 - 14.5 % 05/19/2022 7:46 AM CLERK OF SCALES DTL Platelet Count 195 135 - 317 x10(9)/L 05/19/2022 7:46 AM CLERK OF SCALES DTL Leukocytes 5.2 3.4 - 9.6 x10(9)/L 05/19/2022 7:46 AM CLERK OF SCALES DTL Neutrophils 3.17 1.56 - 6.45 x10(9)/L 05/19/2022 7:46 AM CLERK OF SCALES DTL Lymphocytes 1.02 0.95 - 3.07 x10(9)/L 05/19/2022 7:46 AM CLERK OF SCALES DTL Monocytes 0.52 0.26 - 0.81 x10(9)/L 05/19/2022 7:46 AM CLERK OF SCALES DTL Eosinophils 0.43 0.03 - 0.48 x10(9)/L 05/19/2022 7:46 AM CLERK OF SCALES DTL Basophils 0.06 0.01 - 0.08 x10(9)/L 05/19/2022 7:46 AM CLERK OF SCALES DTL Blood (Blood, Venous) 05/19/2022 7:07 AM CLERK OF SCALES 05/19/2022 7:33 AM CLERK OF SCALES Jessica Flores P.A.-C. LAB BLOOD ADD-O N Performing Organization Address City/State/[facility] Co de Phone Number [facility] [address] [place] [address], [facility] DTL [facility] [address] [place] [address] * (ABNORMAL) Basic Metabolic Panel (05/19/2022 7:07 AM CLERK OF SCALES) Potassium, S 4.4 3.6 - 5.2 mmol/L 05/19/2022 8:10 AM CLERK OF SCALES DTL Sodium, S 138 135 - 145 mmol/L 05/19/2022 8:10 AM CLERK OF SCALES DTL Chloride, S 100 98 - 107 mmol/L 05/19/2022 8:10 AM CLERK OF SCALES DTL Bicarbonate, S 24 22 - 29 mmol/L 05/19/2022 8:10 AM CLERK OF SCALES DTL Anion Gap 14 7 - 15 05/19/2022 8:10 AM CLERK OF SCALES DTL BUN (Blood Urea Nitrogen), S 22 8 - 24 mg/dL 05/19/2022 8:10 AM CLERK OF SCALES DTL Creatinine 1.47(H) 0.74 - 1.35 mg/dL 05/19/2022 8:10 AM CLERK OF SCALES DTL Estimated GFR (eGFR) 49(L) >=60 mL/min/BSA 05/19/2022 8:10 AM CLERK OF SCALES DTL Comment: Estimated GFR calculated using the 2020 CKD_EPI creatinine equation. Calcium, Total, S 10.0 8.8 - 10.2 mg/dL 05/19/2022 8:10 AM CLERK OF SCALES DTL Glucose, S 173(H) 70 - 140 mg/dL 05/19/2022 8:10 AM CLERK OF SCALES DTL Blood (Blood, Venous) 05/19/2022 7:07 AM CLERK OF SCALES 05/19/2022 7:44 AM CLERK OF SCALES Jessica Flores P.A.-C. LAB BLOOD ADD-O N [facility] [address] [place] [address], [place] DTL [facility] [address] [place] [address] documented in this encounter Visit Diagnoses Diagnosis Atherosclerotic Heart Disease Of [place] Coronary Artery Without Angina Pectoris Fatigue documented in this encounter Care Teams Contract Admin Relationship Specialty Start Date End Date Elsewhere, Pcp PCP - General Internal Medicine 05/17/22 documented as of this encounter
--- OUTSIDE RECORDS SUMMARY | 2023-03-22 10:24 | XMS_ITS | Encounter Summary ---
Author Name Unknown Organization [facility] Address [address] [place] [address] Care Team Providers Care Utility Worker Forge Name Role Phone Unavailable Primary Care Provider Unavailabl e Encounter Details Date Type Department Care Team (Late st Contact Info) Description 04/08/2022 Clinical Communication Department of Cardiovascular Medicine in [place], [place] [address] [place] [address] Prescheduling, Provider Social History Tobacco Use Types Packs/Day Years [...] week 06/16/2021 How often do you attend [facility] or scientologist services? More than 4 times per year 06/16/2021 Do you belong to any clubs o r organizations such as evangelical groups, unions, fraternal or athletic groups, or [...] and heating? Not hard at all 06/16/2021 [facility]at ional Health - [...] money to buy more. Never true 06/17/19 22 Within the past 12 months, t he [...] place to sleep or slept in a senior care (including now)? No 06/16/2021 Nutrition Answer Date [...]
--- OUTSIDE RECORDS SUMMARY | 2023-03-22 10:24 | XMS_ITS | Encounter Summary ---
Author Name Unknown Organization [facility] Address [address] [place] [id number] Care Team Providers Care Hired Hand Name Role Phone Elsewhere, Pcp Primary Care Provider Unavailabl e Reason for Visit * Reason Onset Date Comments Pre-visit Intake 05/17/2022 Encounter Details Date Type Department Care Team (Latest Contact Info) Description 05/17/2022 9:45 AM ART MUSEUM AIDE Clinical Communication Virtual Review in [place], [place] [address] [place] [address] Pre-visit Intake Social History Tobacco Use Types [...] How often do you attend chur or roman catholic services? More than 4 times per year 05/12/2022 Do you belong to any clubs o r organizations such as buddhism groups, unions, fraternal or athletic groups, or [...] and heating? Not hard at all 05/12/2022 [facility] [place] of Occupat ional Health - Occupational Stress [...] place to sleep or slept in a detention (including now)? No 05/12/2022 Nutrition Answer Date [...] on filedocumented in this encounter Care Teams Hired Hand Relationship Specialty Start Date End Date Elsewhere, Pcp PCP - General Internal Medicine 05/17/22 documented as of this encounter
--- OUTSIDE RECORDS SUMMARY | 2023-03-22 10:24 | XMS_ITS | Encounter Summary ---
Author Name Unknown Organization [facility] Address [address] [place] [address] Care Team Providers Care Senior [email or web address] Developer Name Role Phone Unavailable Primary Care Provider Unavailabl e Reason for Referral * Outpatient (Routine) - Closed Specialty Diagnoses / Procedures Referred By Fern cisneros Referred To Contact Cardiovascular Disease Diagnoses [facility] [place] Coronary Artery Without Angina Pectoris Tulio Ortiz M.D. [address] [place] [phone] 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 [address] [place] [phone] [facility] [place] Coronary Artery Without Angina Pectoris (Primary Dx) Social History Tobacco Use Types [...] 06/16/2021 How often do you attend chur ch or sikh services? More than 4 times per year 06/16/2021 Do you belong to any clubs o r organizations such as spiritism groups, unions, fraternal or athletic groups, or [...] and heating? Not hard at all 06/16/2021 [facility] [place] of Occupat ional Health - Occupational Stress [...] place to sleep or slept in a alf (including now)? No 06/16/2021 Nutrition Answer Date [...] Type Priority Associated Diagnoses Order Schedule Cardiovascular Diseases Referral Outpatient Referral Routine [facility] [place] Coronary Artery Without Angina Pectoris Expected: 04/04/2022 (Approximate), Expires: 07/04/2023 documented as of this encounter Visit Diagnoses Diagnosis [facility] [place] Coronary Artery Without Angina Pectoris- Primary documented in this encounter
== END 2023-03-22 10:11 | disposition home or self-care (01) ==
LOC: NFLDREF 10:14
PROVIDERS: PCP Family Medicine; Visit Provider Family Medicine
DX: I10 Essential (primary) hypertension (principal); E78.5 Hyperlipidemia, unspecified
CPT/HCPCS: 80048

== ENCOUNTER 2023-04-12 10:30 | Outpatient (RCR) | payer BC, SELFPAY | END 2023-08-10 23:59 | disposition home or self-care (01) | PROVIDERS: PCP Family Medicine; Visit Provider Family Medicine | DX: H81.10 Benign paroxysmal vertigo, unspecified ear (principal); Z51.89 Encounter for other specified aftercare | CPT/HCPCS: 97163; 97530 ==

== ENCOUNTER 2023-04-17 08:08 | Day surgery (SDC) | payer BC, SELFPAY ==
[2023-04-17] VITALS (30 sets, daily range): BP systolic 131–165; BP diastolic 73–107; PULSE 47–76; RESP 13–20; TEMP 36.1–36.8; O2SAT 92–98; BMI 34.9
[2023-04-17] MEDS: SCOPOLAMINE 1 MG/3 DAY PATCH 1 PATCH TRANSDERMA (08:00)
--- OUTSIDE RECORDS SUMMARY | 2023-04-17 08:11 | XMS_ITS | Continuity of Care Document ---
Author Name [facility] Organization [facility] Care Team Providers Care Silver Chaser Name Role Phone [facility] Unavailable Unavailable Problems Problem Status Onset Date Classification Date Reported Comments Source Influenza due to other identified influe Active 02/14/2022 [facility] Acute respiratory failure with hypoxia Active 02/14/2022 [facility] Shortness of breath Active [facility] Medications Medication Details Route Status Patient Instructions Ordering Provider Order Date Source Tamiflu 75 mg oral capsule = 1 Cap, ORAL, BID, X 5 Day(s), # 10 Cap, 0 Refill(s), Acute, Pharmacy: [id number], 175.24, cm, 02/14/22 17:56:00 PST, Height/Length (cm), 108, kg, 02/14/22 17:56:00 PST, Dose calculation weight (kg) Active 60 [facility] NovoLOG FlexPen 0 Refill(s), Maintenance Active 60 [facility] Semglee 70 mg evenings, 0 Refill(s), Maintenance Active 60 [facility] chlorthalidone 25 mg oral tablet = 1 Tab, ORAL, DAILY, 1/2 daily, 0 Refill(s), Maintenance Active 60 [facility] omeprazole 40 mg oral delayed release capsule 1 Cap, ORAL, DAILY, 0 Refill(s), Maintenance Active 60 [facility] fluticasone 50 mcg/inh inhalation powder 1 Puff, INH, BID, 0 Refill(s), Maintenance Active 60 [facility] fenofibrate 145 mg oral tablet = 1 Tab, ORAL, DAILY, 0 Refill(s), Maintenance Active 60 [facility] A/Fish Oil 40066 u oral capsule 0 Refill(s), Maintenance Active 60 [facility] albuterol 2.5 mg, INH, A9S-Ojhmddby, 0 Refill(s), Maintenance Active 60 [facility] Aspir 81 oral enteric coated tablet = 1 Tab, ORAL, DAILY, 0 Refill(s), Maintenance Active 60 [facility] atorvastatin 10 mg oral tablet = 1 Tab, ORAL, DAILY, 0 Refill(s), Maintenance Active 60 [facility] Results Order Name Results Value Reference Range Date Interpretation Comments Source AutoDiff* Auto Neutrophil Percent 90.5 % 49.4 - 72.6 02/16 H [facility] AutoDiff* Auto Neutrophil Absolute 9.5 K/uL 2.0 - 6.4 02/16 H [facility] AutoDiff* Auto Lymphocyte Percent 4.8 % 18.0 - 40.0 02/16 L [facility] AutoDiff* Auto Lymphocyte Absolute 0.5 K/uL 1.5 - 3.0 02/16 [facility] AutoDiff* Auto Monocyte Percent 4.7 % 4.9 - 10.1 02/16 [facility] AutoDiff* Auto Monocyte Absolute 0.5 K/uL 0.3 - 0.8 02/16 [facility] AutoDiff* Auto Eosinophil Percent 0.0 % 0.0 - 5.0 02/16 [facility] AutoDiff* Auto Eosinophil Absolute 0.0 K/uL 0.0 - 0.4 02/16 [facility] AutoDiff* Auto Basophil Percent 0.0 % 0.2 - 1.2 02/16 [facility] AutoDiff* Auto Basophil Absolute 0.0 K/uL 0.0 - 0.1 02/16 [facility] AutoDiff* Sex assigned at Male 02/16 [facility] CBC WBC 10.5 K/uL 3.7 - 10.5 02/16 [facility] CBC RBC 3.90 M/uL 3.81 - 5.87 02/16 NA [facility] CBC HGB 11.7 g/dL 12.0 - 17.9 02/16 L [facility] CBC HCT 34.3 % 34.4 - 50.2 02/16 L [facility] CBC MCV 88.0 fL 80.0 - 99.8 02/16 NA [facility] CBC MCH 29.9 pg 26.7 - 34.0 02/16 NA [facility] CBC MCHC 33.9 g/dL 31.0 - 37.0 02/16 NA [facility] CBC RDW 15.5 % 12.0 - 15.8 02/16 NA [facility] CBC PLT 146 K/uL 139 - 422 02/16 NA [facility] CBC MPV 9.00 fL 6.84 - 10.28 02/16 NA [facility] CBC Sex assigned at Male 02/16 NA [facility] CMP Sodium Level 132 MMOL/L 135 - 145 02/16 L [facility] CMP Potassium Level 4.1 MMOL/L 3.5 - 5.0 02/16 NA [facility] CMP Chloride Level 101 MMOL/L 101 - 111 02/16 NA [facility] CMP CO2/Carbon Dioxide 22 MMOL/L 24 - 32 02/16 L [facility] CMP Anion Gap 9.0 5.0 - 15.0 02/16 NA [facility] CMP Glucose, Random 316 MG/DL - <=200 02/16 H [facility] CMP BUN 34 MG/DL 8 - 20 02/16 H [facility] CMP Creatinine 1.39 MG/DL 0.60 - 1.30 02/16 H [facility] CMP BUN/Creat Ratio 24.5 12.0 - 20.0 02/16 H [facility] CMP Osmolality, Calculated 284 mOsm/L 02/16 [facility] Calcium Level 8.6 MG/DL 8.4 - 10.2 02/16 [facility] Total Protein 6.6 g/dL 6.4 - 8.3 02/16 [facility] Albumin Level 3.5 g/dL 3.2 - 5.5 02/16 [facility] Globulin Level 3.1 g/dL 1.5 - 3.5 02/16 NA [facility] A/G Ratio 1.1 1.1 - 2.2 02/16 NA [facility] ALP 35 IU/L 30 - 115 02/16 [facility] ALT 40 IU/L 5 - 36 02/16 H [facility] AST 50 IU/L 10 - 42 02/16 H [facility] Bilirubin, Total 0.6 MG/DL 0.2 - 1.2 02/16 [facility] GFR - Non 53 mL/min/1.7 3m2 >=61 [...] 18 or greater, not for pediatric patients. [facility] GFR - 64 mL/min/1.7 3m2 >=61 02/16 [facility] Sex assigned at Male 02/16 NA [facility] Mg Magnesium Level 2.2 MG/DL 1.7 - 2.8 02/16 NA [facility] Mg Sex assigned at Male 02/16 NA [facility] Phos Phosphorus Level 2.8 MG/DL 2.5 - 4.5 02/16 NA [facility] Phos Sex assigned at Male 02/16 NA [facility] AutoDiff* Auto Neutrophil Percent 89.9 % 49.4 - 72.6 02/15 H [facility] AutoDiff* Auto Neutrophil Absolute 8.5 K/uL 2.0 - 6.4 02/15 H [facility] AutoDiff* Auto Lymphocyte Percent 5.1 % 18.0 - 40.0 02/15 L [facility] AutoDiff* Auto Lymphocyte Absolute 0.5 K/uL 1.5 - 3.0 02/15 L [facility] AutoDiff* Auto Monocyte Percent 5.0 % 4.9 - 10.1 02/15 NA [facility] AutoDiff* Auto Monocyte Absolute 0.5 K/uL 0.3 - 0.8 02/15 NA [facility] AutoDiff* Auto Eosinophil Percent 0.0 % 0.0 - 5.0 02/15 NA [facility] AutoDiff* Auto Eosinophil Absolute 0.0 K/uL 0.0 - 0.4 02/15 NA [facility] AutoDiff* Auto Basophil Percent 0.0 % 0.2 - 1.2 02/15 L [facility] AutoDiff* Auto Basophil Absolute 0.0 K/uL 0.0 - 0.1 02/15 NA [facility] AutoDiff* Sex assigned at Male 02/15 NA [facility] CBC WBC 9.4 K/uL 3.7 - 10.5 02/15 NA [facility] CBC RBC 3.91 M/uL 3.81 - 5.87 02/15 NA [facility] CBC HGB 11.6 g/dL 12.0 - 17.9 02/15 L [facility] CBC HCT 34.9 % 34.4 - 50.2 02/15 NA [facility] CBC MCV 89.4 fL 80.0 - 99.8 02/15 NA [facility] CBC MCH 29.6 pg 26.7 - 34.0 02/15 NA [facility] CBC MCHC 33.2 g/dL 31.0 - 37.0 02/15 NA [facility] CBC RDW 15.5 % 12.0 - 15.8 02/15 NA [facility] CBC PLT 123 K/uL 139 - 422 02/15 L [facility] CBC MPV 9.30 fL 6.84 - 10.28 02/15 NA [facility] CBC Sex assigned at Male 02/15 NA [facility] CMP Sodium Level 136 MMOL/L 135 - 145 02/15 NA [facility] CMP Potassium Level 4.5 MMOL/L 3.5 - 5.0 02/15 NA [facility] CMP Chloride Level 104 MMOL/L 101 - 111 02/15 NA [facility] CMP CO2/Carbon Dioxide 24 MMOL/L 24 - 32 02/15 NA [facility] CMP Anion Gap 8.0 5.0 - 15.0 02/15 NA [facility] CMP Glucose, Random 302 MG/DL - <=200 02/15 H [facility] CMP BUN 27 MG/DL 8 - 20 02/15 H [facility] CMP Creatinine 1.59 MG/DL 0.60 - 1.30 02/15 H [facility] CMP BUN/Creat Ratio 17.0 12.0 - 20.0 02/15 [facility] CMP Osmolality, Calculated 288 mOsm/L 02/15 NA [facility] CMP Calcium Level 8.7 MG/DL 8.4 - 10.2 02/15 [facility] CMP Total Protein 6.6 g/dL 6.4 - 8.3 02/15 [facility] CMP Albumin Level 3.6 g/dL 3.2 - 5.5 02/15 NA [facility] CMP Globulin Level 3.0 g/dL 1.5 - 3.5 02/15 NA [facility] CMP A/G Ratio 1.2 1.1 - 2.2 02/15 NA [facility] CMP ALP 36 IU/L 30 - 115 02/15 NA [facility] CMP ALT 44 IU/L 5 - 36 02/15 H [facility] CMP AST 58 IU/L 10 - 42 02/15 H [facility] CMP Bilirubin, Total 0.5 MG/DL 0.2 - 1.2 02/15 [facility] GFR - Non 45 mL/min/1.7 3m2 >=61 [...] 18 or greater, not for pediatric patients. [facility] CMP Sex assigned at Male 02/15 [facility] CMP GFR - 55 mL/min/1.7 3m2 >=61 02/15 L [facility] Mg Magnesium Level 2.0 MG/DL 1.7 - 2.8 02/15 NA [facility] Mg Sex assigned at Male 02/15 NA [facility] Phos Phosphorus Level 2.4 MG/DL 2.5 - 4.5 02/15 L [facility] Phos Sex assigned at Male 02/15 NA [facility] Lactic Lactic Acid Level 2.3 MMOL/L 0.5 - 2.2 02/15 H [facility] Lactic Sex assigned at Male 02/15 NA [facility] Lactic Lactic Acid Level 2.8 MMOL/L 0.5 - 2.2 02/14 H [facility] Lactic Sex assigned at Male 02/14 NA [facility] POC G3+ Art ABG - pH 7.441 7.350 - 7.450 02/14 NA Device Code: 60 iSTAT EDFacility: 0060Location: 60 ERSerial Number: [id number] r Code: [id number] rator Name: Carroll TerrellTiesha e Lot: [id number] [facility] POC G3+ Art ABG - pO2 71 mmHg 80 - 105 02/14 L [facility] POC G3+ Art ABG - pCO2 33 mmHg 35 - 45 02/14 L [facility] POC G3+ Art ABG - HCO3 22.4 MEQ/L 22.0 - 26.0 02/14 NA [facility] POC G3+ Art ABG - TCO2 23 MEQ/L 23 - 27 02/14 NA [facility] POC G3+ Art ABG - BE -2.0 MEQ/L -2.0 - 3.0 02/14 NA [facility] POC G3+ Art ABG - O2 Sat 95.0 % 95.0 - 99.0 02/14 NA [facility] POC G3+ Art BG - Modified Juan Test PASS 02/14 NA [facility] POC G3+ Art BG - Site RRAD 02/14 NA [facility] POC G3+ Art FIO2 28 % 02/14 NA [facility] POC G3+ Art BG - O2 Device NC 02/14 NA [facility] POC G3+ Art BG - Oxygen Flow 2.0 L/min 02/14 NA [facility] POC G3+ Art BG - Patient Rate 22 br/min 02/14 NA [facility] POC G3+ Art BG - Pulse Oximetry 94 % 02/14 NA [facility] POC G3+ Art Sex assigned at Male 02/14 NA [facility] CRP CRP C-Reactive Protein 12.60 MG/DL 0.00 - 0.90 02/14 H [facility] CRP Sex assigned at Male 02/14 [facility] DDimerQnt D-Dimer, Qnt 0.45 ZZ [...] 65 0.65mg/L FEU 70 0.70mg/L FEU Etc. [facility] DDimerQnt Sex assigned at Male 02/14 [facility] PCT Procalcitoni n Level 0.47 NG/ML - <=0.50 02/14 NA [facility] PCT Sex assigned at Male 02/14 NA [facility] AutoDiff* Auto Neutrophil Percent 85.8 % 49.4 - 72.6 02/14 H [facility] AutoDiff* Auto Neutrophil Absolute 7.2 K/uL 2.0 - 6.4 02/14 H [facility] AutoDiff* Auto Lymphocyte Percent 3.8 % 18.0 - 40.0 02/14 L [facility] AutoDiff* Auto Lymphocyte Absolute 0.3 K/uL 1.5 - 3.0 02/14 L [facility] AutoDiff* Auto Monocyte Percent 9.4 % 4.9 - 10.1 02/14 NA [facility] AutoDiff* Auto Monocyte Absolute 0.8 K/uL 0.3 - 0.8 02/14 NA [facility] AutoDiff* Auto Eosinophil Percent 0.5 % 0.0 - 5.0 02/14 NA [facility] AutoDiff* Auto Eosinophil Absolute 0.0 K/uL 0.0 - 0.4 02/14 NA [facility] AutoDiff* Auto Basophil Percent 0.5 % 0.2 - 1.2 02/14 NA [facility] AutoDiff* Auto Basophil Absolute 0.0 K/uL 0.0 - 0.1 02/14 NA [facility] AutoDiff* Sex assigned at Male 02/14 NA [facility] CBC WBC 8.4 K/uL 3.7 - 10.5 02/14 NA [facility] CBC RBC 4.24 M/uL 3.81 - 5.87 02/14 NA [facility] CBC HGB 12.6 g/dL 12.0 - 17.9 02/14 [facility] CBC HCT 37.7 % 34.4 - 50.2 02/14 NA [facility] CBC MCV 88.9 fL 80.0 - 99.8 02/14 NA [facility] CBC MCH 29.7 pg 26.7 - 34.0 02/14 NA [facility] CBC MCHC 33.3 g/dL 31.0 - 37.0 02/14 NA [facility] CBC RDW 15.3 % 12.0 - 15.8 02/14 NA [facility] CBC PLT 138 K/uL 139 - 422 02/14 L [facility] CBC MPV 8.60 fL 6.84 - 10.28 02/14 NA [facility] CBC Sex assigned at Male 02/14 NA [facility] CMP Sodium Level 134 MMOL/L 135 - 145 02/14 L [facility] CMP Potassium Level 3.6 MMOL/L 3.5 - 5.0 02/14 NA [facility] CMP Chloride Level 100 MMOL/L 101 - 111 02/14 L [facility] CMP CO2/Carbon Dioxide 25 MMOL/L 24 - 32 02/14 NA [facility] CMP Anion Gap 9.0 5.0 - 15.0 02/14 NA [facility] CMP Glucose, Random 125 MG/DL - <=200 02/14 NA [facility] CMP BUN 19 MG/DL 8 - 20 02/14 NA [facility] CMP Creatinine 1.52 MG/DL 0.60 - 1.30 02/14 H [facility] CMP BUN/Creat Ratio 12.5 12.0 - 20.0 02/14 [facility] CMP Osmolality, Calculated 272 mOsm/L 02/14 [facility] CMP Calcium Level 9.1 MG/DL 8.4 - 10.2 02/14 NA [facility] CMP Total Protein 7.2 g/dL 6.4 - 8.3 02/14 NA [facility] CMP Albumin Level 4.1 g/dL 3.2 - 5.5 02/14 NA [facility] CMP Globulin Level 3.1 g/dL 1.5 - 3.5 02/14 NA [facility] CMP A/G Ratio 1.3 1.1 - 2.2 02/14 NA [facility] CMP ALP 45 IU/L 30 - 115 02/14 NA [facility] CMP ALT 53 IU/L 5 - 36 02/14 H [facility] CMP AST 79 IU/L 10 - 42 02/14 H [facility] CMP Bilirubin, Total 0.8 MG/DL 0.2 - 1.2 02/14 NA [facility] CMP GFR - Non 48 mL/min/1.7 3m2 [...] 18 or greater, not for pediatric patients. [facility] CMP Sex assigned at Male 02/14 NA [facility] CMP GFR - 58 mL/min/1.7 3m2 >=61 02/14 L [facility] Lactic WB Lactic Acid WB 2.17 MMOL/L 0.56 - 1.39 02/14 H [facility] Lactic WB Sex assigned at Male 02/14 NA [facility] Trop Troponin I 0.03 NG/ML 0.00 - [...] infarction and other causes of myocardial damage. [facility] Trop Sex assigned at Male 02/14 NA [facility] Culture Blood No growth at 2 days. 02/14 60 [facility] C Blood C Blood Final:No growth at 5 days.Sex assigned at :Male 02/14 Performed at: [facility], [address] [place] [id number], Software Engineering Associate Manager: Doc Jones M.D. [facility] [id number] SARS-CoV-2 Source Mckay gedc 02/14 NA [facility] [id number] Influenza A Agn Molecular Detected Not Detected [...] determined. Re-collection is recommended if clinically indicated [facility] [id number] Influenza B Agn Molecular Not Detected Not Detected 02/14 NA Assay performed by RT-PCR [facility] [id number] SARS-CoV-2 Molecular Not Detected Not Detected 02/14 NA Assay performed by RT-PCRThis test was performed under U.S. Food and Drug Administratio n (FDA) Emergency use Authorization (EUA). This test has been validated but the [facility] of this validation is pending. [facility] [id number] SARS-CoV-2 First test? No 02/14 NA [facility] [id number] Health Care Worker? No 02/14 NA [facility] [id number] SARS-CoV-2 Is the Patient Hospitalized ? No 02/14 NA [facility] [id number] SARS-CoV-2 Is the Patient in ICU? No 02/14 NA [facility] [id number] Patient From [facility]? No 02/14 NA [facility] [id number] Symptomatic per CDC? Yes 02/14 NA [facility] [id number] SARS-CoV-2 Is the Patient ? No 02/14 NA [facility] [id number] Sex assigned at Male 02/14 [facility] RSV Molc Respiratory Syncytial Virus [...] determined. Re-collection is recommended if clinically indicated. [facility] RSV Molc Sex assigned at Male 02/14 [facility] Diagnostic Reports Report Value Date Source Chest 1 Vw Portable INDICATION: Shortnes s of Breath COMPARISON: None. FINDINGS: The lungs are well expanded and clear, and the cardiac silhouette and pulmonary vessels appear normal. There is no pulmonary vascular redistribution, pleural effusion, or pneumothorax seen. Signed by: Sean Beverly MD on 02/14/2022 12:11 PM 02/14/2022 [facility] Consultation Notes Results Value Date Source Hospitalist [...] mL: 2 gm = 50 mL, IVPB, [id number]-Wccqdlel, PRN, Magnesium Replacement, IV SOLN, 02/14/22 12:51:00 [...] 108, kg Documented Medications Documented A/Fish Oil 48158 u oral capsule: 0 Refill(s), Maintenance Aspir 81 oral enteric coated tablet: = 1 Tab, ORAL, DAILY, 0 Refill(s), Maintenance NovoLOG FlexPen: 0 Refill(s), Maintenance Semglee: 70 mg evenings, 0 Refill(s), Maintenance albuterol: 2.5 mg, INH, R9H-Igrhwhzw, 0 Refill(s), Maintenance atorvastatin 10 mg oral [...] / SWFI 2 gm 50 mL, IVPB, B61R-Ryhetioq ondansetron 2 mg/mL, 2 mL Inj 4 mg 2 mL, IV PUSH, Q4H potassium chloride 10 mEq 100 mL, IVPB, As directed Problem list: All Problems Current smoker / [id number] / Confirmed Ineffective breathing pattern / [id number] / Provisional Manage infection control / [id number] / Provisional Physical Examination Vital Signs 02/16/2022 [...] Rabin Signed on: 16-Feb-2022 10:32 PST [facility]: ROGER [facility]EDER[facility] Age: 76 [...] mL: 2 gm = 50 mL, IVPB, [id number]-Mhxzqmst, PRN, Magnesium Replacement, IV SOLN, 02/14/22 12:51:00 [...] 108, kg Documented Medications Documented A/Fish Oil 53749 u oral capsule: 0 Refill(s), Maintenance Aspir 81 oral enteric coated tablet: = 1 Tab, ORAL, DAILY, 0 Refill(s), Maintenance NovoLOG FlexPen: 0 Refill(s), Maintenance Semglee: 70 mg evenings, 0 Refill(s), Maintenance albuterol: 2.5 mg, INH, N4D-Fdujmayh, 0 Refill(s), Maintenance atorvastatin 10 mg oral [...] / SWFI 2 gm 50 mL, IVPB, X95A-Vkhzzepy ondansetron 2 mg/mL, 2 mL Inj 4 mg 2 mL, IV PUSH, Q4H potassium chloride 10 mEq 100 mL, IVPB, As directed Problem list: All Problems Current smoker / [id number] / Confirmed Ineffective breathing pattern / [id number] / Provisional Manage infection control / [id number] / Provisional Physical Examination Vital Signs 02/16/2022 [...] PST) 93 (FEB 15 10:59 PST) 98 (DEC 07 05:43 PST) OXYFIO2 21 (FEB 16 08:47 [...] patient's response to treatment DC home soon [id number] Male 02/16/2022 [facility] Critical care medicine [facility] Progress note Patient: ROGER FREDERICK Age: 76 [...] mL: 2 gm = 50 mL, IVPB, C55V-Furxlaqt, PRN, Magnesium Replacement, IV SOLN, 02/14/22 12:51:00 [...] 108, kg Documented Medications Documented A/Fish Oil 86876 u oral capsule: 0 Refill(s), Maintenance Aspir 81 oral enteric coated tablet: = 1 Tab, ORAL, DAILY, 0 Refill(s), Maintenance NovoLOG FlexPen: 0 Refill(s), Maintenance Semglee: 70 mg evenings, 0 Refill(s), Maintenance albuterol: 2.5 mg, INH, R7F-Ujkxnylv, 0 Refill(s), Maintenance atorvastatin 10 mg oral [...] mL: 2 gm = 50 mL, IVPB, T06P-Xwffsvwj, PRN, Magnesium Replacement, IV SOLN, 02/14/22 12:51:00 [...] 108, kg Documented Medications Documented A/Fish Oil 89734 u oral capsule: 0 Refill(s), Maintenance Aspir 81 oral enteric coated tablet: = 1 Tab, ORAL, DAILY, 0 Refill(s), Maintenance NovoLOG FlexPen: 0 Refill(s), Maintenance Semglee: 70 mg evenings, 0 Refill(s), Maintenance albuterol: 2.5 mg, INH, T8B-Yvgxqykr, 0 Refill(s), Maintenance atorvastatin 10 mg oral [...] Vijay Signed on: 15-Feb-2022 18:43 PST 02/16/2022 [facility] Critical Care Progress Note Patient: ROGER FREDERICK [...] mL: 2 gm = 50 mL, IVPB, E60G-Apvwajxr, PRN, Magnesium Replacement, IV SOLN, 02/14/22 12:51:00 [...] 108, kg Documented Medications Documented A/Fish Oil 43387 u oral capsule: 0 Refill(s), Maintenance Aspir 81 oral enteric coated tablet: = 1 Tab, ORAL, DAILY, 0 Refill(s), Maintenance NovoLOG FlexPen: 0 Refill(s), Maintenance Semglee: 70 mg evenings, 0 Refill(s), Maintenance albuterol: 2.5 mg, INH, Y0R-Gybsmgwk, 0 Refill(s), Maintenance atorvastatin 10 mg oral [...] mL: 2 gm = 50 mL, IVPB, V89C-Skkfoaeb, PRN, Magnesium Replacement, IV SOLN, 02/14/22 12:51:00 [...] 108, kg Documented Medications Documented A/Fish Oil 44025 u oral capsule: 0 Refill(s), Maintenance Aspir 81 oral enteric coated tablet: = 1 Tab, ORAL, DAILY, 0 Refill(s), Maintenance NovoLOG FlexPen: 0 Refill(s), Maintenance Semglee: 70 mg evenings, 0 Refill(s), Maintenance albuterol: 2.5 mg, INH, E6J-Xqargodo, 0 Refill(s), Maintenance atorvastatin 10 mg oral [...] 1 Cap, ORAL, DAILY, 0 Refill(s), Maintenance. 46581-9 Male [facility]20[facility] Patient: ROGER FREDERICK Age: 76 [...] mL: 2 gm = 50 mL, IVPB, X21F-Gxwecbfn, PRN, Magnesium Replacement, IV SOLN, 02/14/22 12:51:00 [...] 108, kg Documented Medications Documented A/Fish Oil 08141 u oral capsule: 0 Refill(s), Maintenance Aspir 81 oral enteric coated tablet: = 1 Tab, ORAL, DAILY, 0 Refill(s), Maintenance NovoLOG FlexPen: 0 Refill(s), Maintenance Semglee: 70 mg evenings, 0 Refill(s), Maintenance albuterol: 2.5 mg, INH, T9J-Mqrykxmr, 0 Refill(s), Maintenance atorvastatin 10 mg oral [...] / SWFI 2 gm 50 mL, IVPB, J87G-Wsdzacpi ondansetron 2 mg/mL, 2 mL Inj 4 mg 2 mL, IV PUSH, Q4H potassium chloride 10 mEq 100 mL, IVPB, As directed Problem list: All Problems Current smoker / [id number] / Confirmed Manage infection control / [id number] / Provisional Physical Examination Vital Signs 02/15/2022 [...] will depend to patient's response to treatment 46083-0 Male 02/15/2022 [facility] Consult note Patient: ROGER FREDERICK Age: 76 years Legal Sex: Male : 1945 Author: MD Ortiz Vijay Basic Information Provider information/ cc: Physicians Involved With Care ?? Admitting: ? MD Jose David, [facility] ?? Attending: ? MD Jose David, [facility] ?? Consulting: ? MD Angel, Jeronimo ?? Primary Care: ??? RAYNE, . Acute hypoxic respiratory failure/influenza A tracheobronchitis/asthma exacerbation Chief Complaint Increasing cough congestion fever shortness of breath History of Present Illness The patient is a 36-year-old male with possible history of asthma/OSAS/DM2/hypertension hyperlipidemia obesity admitted with increasing cough shortness of breath chest congestion for last 4 to 5 days and now with fevers and body aches. He is [facility]. Laboratory work-up in the ER with [...] medications: Home Medications (12) Active A/Fish Oil 02486 u oral capsule ?(Documented?02/14/22) acetaminophen 650 mg rectal suppository 650 mg = 1 Supp, PRN, RECTAL, Q4H?(Documented?02/14/22) acetaminophen 650 mg rectal suppository 650 mg = 1 Supp, PRN, RECTAL, Q4H?(Documented?02/14/22) albuterol 2.5 mg, INH, Z6X-Tmdmnlnq?(Documented?02/14) Aspir 81 oral enteric coated tablet 81 [...] mL: 2 gm = 50 mL, IVPB, C77O-Tmibftok, PRN, Magnesium Replacement, IV SOLN, 02/14/22 12:51:00 [...] 108, kg Documented Medications Documented A/Fish Oil 16664 u oral capsule: 0 Refill(s), Maintenance Aspir [...] 0 Refill(s), Maintenance albuterol: 2.5 mg, INH, F9G-Gbvhfowg, 0 Refill(s), Maintenance atorvastatin 10 mg oral [...] in SWFI 50 mL) 2 gm IVPB N42J-Kyauhzbd ondansetron (Zofran) 4 mg IV PUSH Q4H [...] would you like me to No *Is Anabaptist/Spirituality/Tavia important to you as you cope No [...] Nasal cannula Room a Room a (FEB 14:40 PST) (FEB 14:21 PST) (FEB 14 11:21 PST) . General: [...] Vijay Signed on: 15-Feb-2022 18:26 PST 02/15/2022 [facility] Consultation Patient: ROGER FREDERICK Age: 76 years [...] with fevers and body aches. He is [facility]. Laboratory work-up in the ER with [...] medications: Home Medications (12) Active A/Fish Oil 20392 u oral capsule (Documented 02/14/22) acetaminophen 650 mg rectal suppository 650 mg = 1 Supp, PRN, RECTAL, Q4H (Documented 02/14/22) acetaminophen 650 mg rectal suppository 650 mg = 1 Supp, PRN, RECTAL, Q4H (Documented 02/14/22) albuterol 2.5 mg, INH, V1V-Puskrkhg (Documented 02/14/22) Aspir 81 oral enteric coated [...] mL: 2 gm = 50 mL, IVPB, G15J-Zaliytvl, PRN, Magnesium Replacement, IV SOLN, 02/14/22 12:51:00 [...] 108, kg Documented Medications Documented A/Fish Oil 92412 u oral capsule: 0 Refill(s), Maintenance Aspir [...] 0 Refill(s), Maintenance albuterol: 2.5 mg, INH, Y9V-Wxiobsji, 0 Refill(s), Maintenance atorvastatin 10 mg oral [...] in SWFI 50 mL) 2 gm IVPB E07N-Gywfimyl ondansetron (Zofran) 4 mg IV PUSH Q4H [...] would you like me to No *Is Anabaptist/Spirituality/Tavia important to you as you cope No [...] use compliant DVT/PUD prophylaxis Condition prognosis guarded [id number] Male 02/15/2022 [facility] History and Physical Examination Patient: ROGER FREDERICK ? Age: 76 years?Legal Sex: MALE?: 1945 Date of Service 02/14/2022 13:21 PST Chief Complaint Shortness of breath. History of Present Illness 76-year-old male with past medical history significant for hypertension, hyperlipidemia, type 2 diabetes mellitus, asthma, obstructive sleep apnea, gastroesophageal reflux disease presents [facility] emergency department complaint shortness of breath.? Patient details that over the past 3 to 4 days he has been having progressive congestion, dry cough, mild shortness of breath.? Patient details body aches.? Patient also recently developed fevers.? Patient details that his recently had an upper respiratory infection 4 days prior.? Patient is visiting from [place].? Denies any chest pain.? No abdominal pain [...] Bilateral: Upper extremity ( Capillary Refill Time (FINANCIAL SERVICES SPECIALIST) returns in less than 2 seconds ), Lower extremity ( Capillary Refill Time (FINANCIAL SERVICES SPECIALIST) returns in less than 2 seconds ). ? Gastrointestinal: ?Soft, Non-tender, Non-distended, Normal bowel sounds, No organomegaly. ? Genitourinary: ?No costovertebral angle tenderness. Lymphatics: ?No lymphadenopathy neck, axilla, groin. ? Musculoskeletal: ?Normal range of motion, Normal strength, No tenderness, No swelling, No deformity, Normal gait. ? Integumentary: ?Warm, [place], Intact, No pallor, No rash. ? Neurologic: [...] 21:00:00 PST enoxaparin (Lovenox), 40 mg, SUBQ, [id number]-Wwetgkms, Indication = VTE Prophylaxis, INJ, 02/14/22 13:00:00 [...] mL), 2 gm = 50 mL, IVPB, V30M-Urpugnit, PRN, Magnesium Replacement, IV SOLN, 02/14/22 12:51:00 [...] PRN Lovenox, 40 mg, 0.4 mL, SUBQ, [id number]-Khmzjqtk magnesium oxide, 400 mg, 1 Tab, ORAL, BID, PRN magnesium sulfate 2 g in SWFI 50 mL, 2 gm, 50 mL, IVPB, Y56X-Uyzkemhq, PRN potassium bicarbonate-citric acid, 20 mEq, 1 [...] IV PUSH, Q4H, PRN Home A/Fish Oil 99261 u oral capsule acetaminophen 650 mg rectal suppository, 650 mg, 1 Supp, RECTAL, Q4H, PRN acetaminophen 650 mg rectal suppository, 650 mg, 1 Supp, RECTAL, Q4H, PRN albuterol, 2.5 mg, INH, M9V-Ouimrces Aspir 81 oral enteric coated tablet, 81 [...] Armen Signed on: 14-Feb-2022 13:56 PST 02/14/2022 [facility] Portable XR Chest AP single view INDICATION: Shortness of Breath COMPARISON: None. FINDINGS: The lungs are well expanded and clear, and the cardiac silhouette and pulmonary vessels appear normal. There is no pulmonary vascular redistribution, pleural effusion, or pneumothorax seen. 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 His been ill for the last 4 [...] Medications: (Selected) Documented Medications Documented A/Fish Oil 64497 u oral capsule: 0 Refill(s), Maintenance Aspir [...] 0 Refill(s), Maintenance albuterol: 2.5 mg, INH, Y6G-Twfpaxpj, 0 Refill(s), Maintenance atorvastatin 10 mg oral [...] 13:03:45 PST, Stop Dt/Tm 02/14/22 13:03:45 PST Fee Clerk Consult: 02/14/22 17:58:35 PST, Reason for consult: Discern alert Intake and Output: 02/14/22 12:54:00 PST, U16E-Kmibtyzw, Strict K-Phos Neutral: = 1 Tab, ORAL, [...] Phosphorus Level: 02/14/22 12:54:00 PST, QMorning, Maria Elnea Priority: Routine Rpt Priority: Routine, Not Collected Lab Collect, Blood Physician Consult: 02/14/22 13:17:00 PST, MD Angel, jerad Decker, Unit Staff To Call? No Precautions: 02/14/22 12:54:00 PST, Continuous Order, Fall Precautions Protonix: 40 mg, ORAL, DAILY, EC TAB, 02/14/22 12:54:00 PST Rapid Response Protocol Orders or Emergency Response per Protocol: 02/14/22 12:54:00 PST, Per protocol SCD: 02/14/22 12:54:00 PST, Z4Y-Ehkpkdel, While In Bed; Remove every 8 hours [...] PST, Q4H Weigh Patient: 02/14/22 12:54:00 PST, [id number] Zofran: 4 mg, IV PUSH, Q4H, PRN, [...] mL: 2 gm = 50 mL, IVPB, V74T-Vcjuwmbn, PRN, Magnesium Replacement, IV SOLN, 02/14/22 12:51:00 [...] 02/14/22 11:56:06 PST, RT, Routine, 02/14/22 11:56:06 /[place] [facility] Glucose Panel: Blood, Collected Y/N, 02/14/22 18:44:24 PST, RT, Routine, 02/14/22 18:44:24 /[place] [facility] Glucose Panel: Blood, Collected Y/N, 02/14/22 21:26:39 PST, RT, Routine, 02/14/22 21:26:39 /[place] [facility] Glucose Panel: Blood, Collected Y/N, 02/15/22 5:51:56 PST, RT, Routine, 02/15/22 5:51:56 /[place] Possible Sepsis: 02/14/22 11:38:08 PST, Stop Dt/Tm [...] mg/dL Normal Lactic Acid WB 2.17 mmol/L WA 02/14/2022 11:36 PST Influenza A Agn Molecular Detected Influenza B Agn Molecular Not Detected Patient From Congregate Area? No SARS-CoV-2 Molecular Not Detected SARS-CoV-2 [...] point I believe requires hospitalization. Hospitalist notified, claim benefit specialist, consulted as well. After initial treatments, [...] GERD Plan Condition: Improved, Stable. Disposition: Admit. [id number] Male 02/14/2022 [facility] Discharge Summaries Results Value Date Source Discharge [...] Chito Leone RN, 02/19/2022 11:01:06 Conf # [id number] FARHAT, 02/19/2022 13:13:00 Dictation ID [id number] Male 02/19/2022 [facility] History and Physicals Results Value Date Source Hospitalist Admission H&P 02/14/2022 [facility] History and Physical Patient: ROGER FREDERICK Age: 76 years Legal Sex: MALE : 1945 Date of Service 02/14/2022 13:21 PST Chief Complaint Shortness of breath. History of Present Illness 76-year-old male with past medical history significant for hypertension, hyperlipidemia, type 2 diabetes mellitus, asthma, obstructive sleep apnea, gastroesophageal reflux disease presents [facility] emergency department complaint shortness of breath. Patient details that over the past 3 to 4 days he has been having progressive congestion, dry cough, mild shortness of breath. Patient details body aches. Patient also recently developed fevers. Patient details that his recently had an upper respiratory infection 4 days prior. Patient is visiting from [place]. Denies any chest pain. No abdominal pain [...] Bilateral: Upper extremity ( Capillary Refill Time (FINANCIAL SERVICES SPECIALIST) returns in less than 2 seconds ), Lower extremity ( Capillary Refill Time (FINANCIAL SERVICES SPECIALIST) returns in less than 2 seconds ). Gastrointestinal: Soft, Non-tender, Non-distended, Normal bowel sounds, No organomegaly. Genitourinary: No costovertebral angle tenderness. Lymphatics: No lymphadenopathy neck, axilla, groin. Musculoskeletal: Normal range of motion, Normal strength, No tenderness, No swelling, No deformity, Normal gait. Integumentary: Warm, [place], Intact, No pallor, No rash. Neurologic: Alert, [...] 21:00:00 PST enoxaparin (Lovenox), 40 mg, SUBQ, W70G-Azujxpwi, Indication = VTE Prophylaxis, INJ, 02/14/22 13:00:00 [...] mL), 2 gm = 50 mL, IVPB, X08H-Ogcswhvy, PRN, Magnesium Replacement, IV SOLN, 02/14/22 12:51:00 [...] PRN Lovenox, 40 mg, 0.4 mL, SUBQ, V71E-Cwfpttlc magnesium oxide, 400 mg, 1 Tab, ORAL, BID, PRN magnesium sulfate 2 g in SWFI 50 mL, 2 gm, 50 mL, IVPB, U84O-Vyggxpfm, PRN potassium bicarbonate-citric acid, 20 mEq, 1 [...] IV PUSH, Q4H, PRN Home A/Fish Oil 47998 u oral capsule acetaminophen 650 mg rectal suppository, 650 mg, 1 Supp, RECTAL, Q4H, PRN acetaminophen 650 mg rectal suppository, 650 mg, 1 Supp, RECTAL, Q4H, PRN albuterol, 2.5 mg, INH, P1T-Kfzvpzxk Aspir 81 oral enteric coated tablet, 81 [...] Influenza A. Tamiflu 75 mg twice daily 48765-0 Male 02/14/2022 [facility] Vital Signs Vital Sign Value Date Comments Source Pulse Oximetry 97 % 02/16/2022 60 [facility] Respiratory rate 18 br/min 02/16/2022 60 [facility] Peripheral Pulse Rate 87 bpm 02/16/2022 60 [facility] Pulse Oximetry 97 % 02/16/2022 60 [facility] Oxygen FiO2 21 % 02/16/2022 60 [facility] Respiratory rate 13 br/min 02/16/2022 [facility] Peripheral Pulse Rate 87 bpm 02/16/2022 60 [facility] Oxygen FiO2 21 % 02/16/2022 60 [facility] Pulse Oximetry 97 % 02/16/[address] [facility] Temperature (F) 98.7 [degF] 02/16/2022 60 [facility] Peripheral Pulse Rate 89 bpm 02/16/2022 60 [facility] Respiratory rate 18 br/min 02/16/2022 60 [facility] [place] Systolic BP 142 mm[Hg] 02/16/2022 60 [facility] Diastolic BP 82 mm[Hg] 02/16/2022 60 [facility] Oxygen FiO2 21 % 02/16/2022 60 [facility] Temperature (F) 98.0 [degF] 02/16/2022 60 [facility] Systolic BP 150 mm[Hg] 02/16/2022 60 [facility] Diastolic BP 78 mm[Hg] 02/16/2022 60 [facility] Weight (kg) 108.5 kg 02/16/2022 60 [facility] Temperature (F) 97.4 [degF] 02/16/2022 60 [facility] [place] Systolic BP 153 mm[Hg] 02/16/2022 60 [facility] Diastolic BP 91 mm[Hg] 02/16/2022 60 [facility] Oxygen flow 2 L/min 02/16/2022 60 [facility] Oxygen flow 2 L/min 02/16/2022 60 [facility] Oxygen flow 2 L/min 02/16/2022 60 [facility] Weight (kg) 109.9 kg 02/15/2022 60 [facility] HeightLength (cm) 175.24 cm 02/15/2022 60 [facility] [place] Weight (kg) 108 kg 02/15/2022 60 [facility] Body Mass Index 35.17 kg/m2 02/15/2022 60 [facility] Dose calculation weight (kg) 108 kg 02/15/2022 60 [facility] Heart Rate Monitored 94 bpm 02/15/2022 60 [facility] Heart Rate Monitored 88 bpm 02/14/2022 60 [facility] Heart Rate Monitored 100 bpm 02/14/2022 [facility] Mean BP 81 mm[Hg] 02/14/2022 60 [facility] Dose calculation weight (kg) 108 kg 02/14/2022 60 [facility] Encounters Location Location Details Encounter Type Encounter Number Reason For Visit Attending Provider ADM Date DC Date Status Source 60 60 [facility] Inpatient [id number] ACUTE HYPOXEMIC RESPIRATO RY FAILURE, INFLUENZA A Wilfredo Nikjoo 02/14 Active [facility] Procedures Procedure Code Date Perfomer Comments Source ROUTINE VENIPUNCTURE 23050 02/16/2022 60 [facility] ROUTINE VENIPUNCTURE 33031 02/15/2022 60 [facility] ROUTINE VENIPUNCTURE 59943 02/15/2022 60 [facility] ROUTINE VENIPUNCTURE 42118 02/14/2022 60 [facility] WITHDRAWAL OF ARTERIAL BLOOD 13470 02/14/2022 60 [facility] [place] WITHDRAWAL OF ARTERIAL BLOOD 77103 02/14/2022 60 [facility] [place] ROUTINE VENIPUNCTURE 29244 02/14/2022 60 [facility] ROUTINE VENIPUNCTURE 22943 02/14/2022 60 [facility] Plan of Care Plan of Care Date Source Extracted from:Title: Shortn ess of breath Author: MD Denise, Oren Ny Date: 02/14/22 Impression and Plan Diagnosis 1. Acute respiratory failure #2 acute influenza infection #3 hypertension #4 diabetes #5 history of dyslipidemia #6 history of asthma #7 history of GERD Plan Condition: Improved, Stable. Disposition: Admit. 02/16/2022 [facility] nathan Social History Social History Date Source Social History TypeResponse Smoking Status Is there a smoker in the household? No; *Do you have concerns about tobacco use in household? No; 4 or less cigarettes(less than 1/4 pack)/day in last 30 days; Never; *Are you ready to quit? N/A entered on: 02/14/22 Sex Male [facility] Social History TypeResponse Smoking Status Is there a smoker in the household? No; *Do you have concerns about tobacco use in household? No; 4 or less cigarettes(less than 1/4 pack)/day in last 30 days; Never; *Are you ready to quit? N/A entered on: 02/14/22 Sex Male [address] [place] [address] Maggie evans Social History TypeResponse Smoking Status Is there a smoker in the household? No; *Do you have concerns about tobacco use in household? No; 4 or less cigarettes(less than 1/4 pack)/day in last 30 days; Never; *Are you ready to quit? N/A entered on: 02/14/22 Sex Male 61 [facility]
--- OUTSIDE RECORDS SUMMARY | 2023-04-17 08:11 | XMS_ITS | Encounter Summary ---
Author Name Unknown Organization [facility] Address [address] [place] [address] Care Team Providers Care Park Superintendent Name Role Phone Elsewhere, Pcp Primary Care Provider Unavailabl e Reason for Visit * Reason Onset Date Comments Follow-up 01/26/2023 Office visit not es Encounter Details Date Type Department Care Team (Latest Contact Info) Description 01/26/2023 Clinical Communication Department of Cardiovascular Medicine in [place], [place] [address] [place] [address] Carroll Estrada M.D., Ph.D. [address] [place] [address] Follow-up (Office visit notes) Social History Tobacco [...] any clubs o r organizations such as sabianism groups, unions, fraternal or athletic groups, or [...] and heating? Not hard at all 09/28/2022 [facility] - Occupational Stress Questionnaire Answer Date [...] your living situation today? I have a [employer] place to live 09/28/2022 Education Answer Date [...] on filedocumented in this encounter Care Teams Park Superintendent Relationship Specialty Start Date End Date Elsewhere, Pcp PCP - General Internal Medicine 05/17/22 documented as of this encounter
--- OUTSIDE RECORDS SUMMARY | 2023-04-17 08:11 | XMS_ITS | Referral Summary ---
Author Name Unknown Organization [facility] Address [address] [place] [address] Care Team Providers Care Sales Architect Name Role Phone Elsewhere, Pcp Primary Care Provider Unavailabl e Source Comments Patient records contain information from all sites at [facility]. For routine questions regarding patient records, call [phone] during business hours, M-F 8:00 AM - 5:00 PM Central Time. Record requests for emergency care only can be directed to [phone] at any time.[facility] Encounters Date Type Department Care Team Description 01/26/2023 Clinical Communication Department of Cardiovascular Medicine in [place], [place] [address] [place] [address] Carroll Estrada M.D., Ph.D. Follow-up (Office visit notes) 01/24/2023 3:15 PM NURSE ASSESSOR Office Visit Department of Cardiovascular Medicine in [place], [place] [address] [place] [address] Carroll Estrada M.D., Ph.D. Dysfunction Diastolic (Primary [...] flash glucose scanning reader (FreeStyle Stormy 2 [place]) [facility] Use as directed 1 each 0 07/21/2022 [...] any clubs o r organizations such as lutheran groups, unions, fraternal or athletic groups, or [...] and heating? Not hard at all 09/28/2022 [facility] - Occupational Stress Questionnaire Answer Date Recorded [...] Comments Blood Pressure 123/71 01/24/2023 3:03 PM NURSE ASSESSOR Pulse 77 01/24/2023 3:03 PM NURSE ASSESSOR Temperature 37 ??C (98.6 ??F) 10/05/2022 2:20 PM CDT Respiratory Rate - - Oxygen Saturation 98% 06/06/2022 9:25 AM CDT Inhaled Oxygen Concentration - - Weight 106 kg (233 lb 11 oz) 01/24/2023 3:03 PM NURSE ASSESSOR Height 175 cm (5' 8.9) 01/24/2023 3:03 PM NURSE ASSESSOR Body Mass Index 34.61 01/24/2023 3:03 PM NURSE ASSESSOR Plan of Treatment Not on file Medical Devices Implanted Type Area Still Operator Helper Device Identifier Shelf Expiration Date Model / Serial / Lot Bilateral Knee Implant Knee Implant Bilatera l: Knee Care Teams Sales Architect Relationship Specialty Start Date End Date Elsewhere, Pcp PCP - General Internal Medicine 05/17/22
--- OUTSIDE RECORDS SUMMARY | 2023-04-17 08:11 | XMS_ITS ---
Author Name Unknown Organization [facility] Address [address] [place] [address] Care Team Providers Care Control System Computer Scientist Name Role Phone Unavailable Unavailable Unavailable Surgery Details Not on file Complications Check Surgery Details section. Procedure Estimated Blood Loss Check Surgery Details section. Procedure Findings Check Surgery Details section. Procedure Specimens Taken Check Surgery Details section.
--- OUTSIDE RECORDS SUMMARY | 2023-04-17 08:11 | XMS_ITS | Clinical Summary ---
Author Name Unknown Organization [facility] Address [address] [place] [address] Care Team Providers Care Soft Metals Hand Engraver Name Role Phone Elsewhere, Pcp Primary Care Provider Unavailabl e Source Comments Patient records contain information from all sites at [facility]. For routine questions regarding patient records, call [phone] during business hours, M-F 8:00 AM - 5:00 PM Central Time. Record requests for emergency care only can be directed to [phone] at any time.[facility] Allergies Active Allergy Reactions Criticality Noted [...] flash glucose scanning reader (FreeStyle Stormy 2 [place]) [facility] Use as directed 1 each 0 07/21/2022 [...] Clinical Communication Department of Cardiovascular Medicine in [address] [address] Carroll Estrada M.D., Ph.D. Follow-up (Office visit notes) 01/24/2023 3:15 PM CASH APPLICATIONS ASSOCIATE Office Visit Department of Cardiovascular Medicine in [place], [place] [address] [place] [address] Carroll Estrada M.D., Ph.D. Dysfunction Diastolic (Primary [...] often do you attend chur ch or oriental orthodox services? More than 4 times per year 05/12/2022 Do you belong to any clubs o r organizations such as congregational groups, unions, fraternal or athletic groups, or [...] and heating? Not hard at all 09/28/2022 [employer] [place] [facility] Occupat ional Health - Occupational Stress [...] your living situation today? I have a [facility] place to live 09/28/2022 Education Answer [...] Comments Blood Pressure 123/71 01/24/2023 3:03 PM CASH APPLICATIONS ASSOCIATE Pulse 77 01/24/2023 3:03 PM CASH APPLICATIONS ASSOCIATE Temperature 37 ??C (98.6 ??F) 10/05/2022 2:20 PM CDT Respiratory Rate - - Oxygen Saturation 98% 06/06/2022 9:25 AM CDT Inhaled Oxygen Concentration - - Weight 106 kg (233 lb 11 oz) 01/24/2023 3:03 PM CASH APPLICATIONS ASSOCIATE Height 175 cm (5' 8.9) 01/24/2023 3:03 PM CASH APPLICATIONS ASSOCIATE Body Mass Index 34.61 01/24/2023 3:03 PM CASH APPLICATIONS ASSOCIATE Plan of Treatment Health Maintenance Due Date Last Done Comments Hepatitis C Screening 1945 Pneumococcal vaccine (65+ ye ars) (3 of 3 - PPSV23 or PCV20) 06/21/2020 06/22/2015, 12/12/2008 Zoster Vaccines (3 of 3) 12/24/2020 10/29/2020, 1108/2008 COVID-19 Vaccine (8 - 2022-2 4 season) 2022 10/13/2022, 12/30/2021, 07/05/2021, Additional history exists Depression Screening (Annual PHQ-2) 03/13/2023 Fall Risk Screen (Annual) 03/13/2023 Potassium Level 05/20/2023 05/19/2022 Sodium Level 05/20/2023 05/19/2022 Creatinine Level (Kidney Fun ction Test) 10/25/2023 10/24/2022, 05/19/2022 DTaP,Tdap,and Td Vaccines (3 - Td or Tdap) 06/20/2027 06/19/2017, 08/17/2007, 03/13/1997 Influenza Vaccine Completed 12/19/2022, , 02/17/2021, Additional history exists Medical Devices Implanted Type Area Qa Architect Device Identifier Shelf Expiration Date Model / Serial / Lot Bilateral Knee Implant Knee Implant Bilatera l: Knee Care Teams Soft Metals Hand Engraver Relationship Specialty Start Date End Date Elsewhere, Pcp PCP - General Internal Medicine 05/17/22
--- OUTSIDE RECORDS SUMMARY | 2023-04-17 08:12 | XMS_ITS | Encounter Summary ---
Author Name Unknown Organization [facility] Address [address] [place] [address] Care Team Providers Care Canine Deputy Name Role Phone Elsewhere, Pcp Primary Care Provider Unavailabl e Reason for Referral * Outpatient (Routine) - Closed Specialty Diagnoses / Procedures Referred By Contac t Referred To Contact Cardiovascular Disease Carroll Estrada M.D., Ph.D. [address] [place] [phone] [facility] Referral ID Status Reason Start Date Expiration Date Visits Re quested Visits Authorized [id number] Closed 07/05/2022 07/04/2025 1 1 * Outpatient (Routine) - Closed Specialty Diagnoses / Procedures Referred By Contac t Referred To Contact Nutrition Diagnoses Diabetes Mellitus Type 2 (HCC) Carroll Estrada M.D., Ph.D. [address] [place] [phone] [facility] Referral ID Status Reason Start Date Expiration Date Visits Re quested Visits Authorized [id number] Closed 07/05/2022 07/05/2023 1 1 * Outpatient (Routine) - Closed Specialty Diagnoses / Procedures Referred By Contac t Referred To Contact Endocrinology Diagnoses Diabetes Mellitus Type 2 (HCC) Carroll Estrada M.D., Ph.D. [address] [place] [address] [facility] Referral ID Status Reason Start Date Expiration Date Visits Re quested Visits Authorized [id number] Closed 07/05/2022 07/05/2023 1 1 Reason for Visit * Outpatient (Routine) - Closed Specialty Diagnoses / Procedures Referred By Contac t Referred To Contact Cardiovascular Disease Carroll Estrada M.D., Ph.D. [address] [place] [phone] [facility] Referral ID Status Reason Start Date Expiration Date Visits Re quested Visits Authorized [id number] Closed 05/19/2022 05/18/2025 1 1 Encounter Details Date Type Department Care Team (Latest Contact Info) Description 07/05/2022 11:15 AM CDT Office Visit Department of Cardiovascular Medicine in [place], [place] [address] [place] [address] Carroll Estrada M.D., Ph.D. [address] [place] [phone] Dysfunction Diastolic (Primary Dx); Diabetes Mellitus Type [...] often do you attend chur ch or presybeterian services? More than 4 times per year 05/12/2022 Do you belong to any clubs o r organizations such as christian groups, unions, fraternal or athletic groups, or [...] and heating? Not hard at all 05/12/2022 [facility] ional Health - [...] or slept in a intermediate (including now)? No 05/12/2022 Nutrition Answer Date [...] would like to see endocrinology here at [facility] since in the past he is had [...] bloodpressure management. 2. Endocrinology diabetes clinic and scrum coach referral I personally spent 60 minutes in care of the patient today. Time includes both non bwct-lh-ynli bpifldo-fh-psmv patient care. Electronically signed by: Carroll Estrada [...] (HCC) documented in this encounter Care Teams Canine Deputy Relationship Specialty Start Date End Date Elsewhere, Pcp PCP - General Internal Medicine 05/17/22 documented as of this encounter
--- OUTSIDE RECORDS SUMMARY | 2023-04-17 08:12 | XMS_ITS | Encounter Summary ---
Author Name Unknown Organization [facility] Address [address] [place] [address] Care Team Providers Care Planning Manager Name Role Phone Elsewhere, Pcp Primary Care Provider Unavailabl e Encounter Details Date Type Department Care Team (Late st Contact Info) Description 07/04/2022 4:30 PM CDT Diagnostic Division of Pulmonary Medicine in [place], [place] [address] [place] [address] Lloyd Trevino Jr., M.D. [address] [place] [phone] Apnea Sleep Obstructive Social History Tobacco Use [...] often do you attend chur ch or amish services? More than 4 times per year 05/12/2022 Do you belong to any clubs o r organizations such as scientologist groups, unions, fraternal or athletic groups, or [...] hard at all 05/12/2022 [facility] - Occupational Stress Questionnaire Answer Date [...] place to sleep or slept in a care home (including now)? No 05/12/2022 Nutrition Answer [...] quality of sleep the same as usual. ??[place] Sleepiness Scale was 7. ??Baseline oxygen saturation was 95%, with mean overnight saturation ranging between 94 and 96%. ??Minimal oscillatory variations are most likely artifact related. Impression: ??No significant desaturation or convincing evidence of residual sleep disordered breathing on current CPAP settings. Physician: Ta Bell M.D. [id number] Narrative Procedure Note Ta Bell M.D. - 07/06/2022 IMPRESSION: Overnight oximetry was performed on home CPAP settings and room air. Thepatient denied alcohol or sedative medication on the night of the study,and stated quality of sleep the same as usual. [place] Sleepiness Scalewas 7. Baseline oxygen saturation was 95%, with mean overnight saturation ranging between 94 and96%. Minimal oscillatory variations are most likely artifact related. Impression: No significant desaturation or convincing evidence ofresidual sleep disordered breathing on current CPAP settings. Physician: Ta Bell M.D. [id number] Lloyd Trevino Jr., M.D. PFT ORDERABLE S Performing Organization Address City/State/[facility] Co de Phone Number [facility] documented in this encounter Visit Diagnoses Diagnosis Apnea Sleep Obstructive documented in this encounter Care Teams Planning Manager Relationship Specialty Start Date End Date Elsewhere, Pcp PCP - General Internal Medicine 05/17/22 documented as of this encounter
--- OUTSIDE RECORDS SUMMARY | 2023-04-17 08:12 | XMS_ITS | Encounter Summary ---
Author Name Unknown Organization [facility] Address [address] [place] [address] Care Team Providers Care Income Tax Auditor Name Role Phone Elsewhere, Pcp Primary Care Provider Unavailabl e Reason for Referral * Outpatient (Routine) - Authorized Specialty Diagnoses / Procedures Referred By Fern t Referred To Contact Neurological Surgery Joan Mcgregor MPAS, P.A.-Sudhakar [address] [place] [phone] [facility] Referral ID Status Reason Start Date Expiration Date V isits Requested Visits Authorized [id number] Authorized 10/05/2022 10/04/2025 1 1 * MRI/CAT/PET Scan (Routine) - Authorized Specialty Diagnoses / Procedures Referred By Fern t Referred To Contact Radiology Diagnoses Tumor Cerebral Meninges Benign (HCC) Procedures MR Brain without and with IV Contrast Joan Mcgregor MPAS, P.A.-C. [address] [place] [phone] [facility] Referral ID Status Reason Start Date Expiration Date V isits Requested Visits Authorized [id number] Authorized 10/05/2022 10/05/2023 1 1 Reason for Visit * Outpatient (Routine) - Closed Specialty Diagnoses / Procedures Referred By Fern cisneros Referred To Contact Neurological Surgery Joan Mcgregor MPAS, P.A.-C. 200 [place] [phone] [facility] Referral ID Status Reason Start Date Expiration Date Visits Re quested Visits Authorized [id number] Closed 09/17/2021 09/17/2022 1 1 Encounter Details Date Type Department Care Team (Late st Contact Info) Description 10/05/2022 2:30 PM CDT Office Visit Department of Neurologic Surgery in [place], [place] [address] [place] [phone] Joan Mcgregor MPAS, P.A.-C. 200 [place] [phone] Tumor Cerebral Meninges Benign (HCC) (Primary Dx) [...] often do you attend chur ch or gnosticist services? More than 4 times per year 05/12/2022 Do you belong to any clubs o r organizations such as latter-day groups, unions, fraternal or athletic groups, or [...] and heating? Not hard at all 09/28/2022 [facility] - [...] your living situation today? 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 He developed tinnitus and dizzinessfor which [...] Primary documented in this encounter Care Teams Income Tax Auditor Relationship Specialty Start Date End Date Elsewhere, Pcp PCP - General Internal Medicine 05/17/22 documented as of this encounter
--- OUTSIDE RECORDS SUMMARY | 2023-04-17 08:12 | XMS_ITS | Encounter Summary ---
Author Name Unknown Organization [facility] Address [address] [place] [address] Care Team Providers Care Serology Teacher Name Role Phone Elsewhere, Pcp Primary Care Provider Unavailabl e Reason for Visit * Outpatient (Routine) - Closed Specialty Diagnoses / Procedures Referred By Fern cisneros Referred To Contact Nutrition Diagnoses Diabetes Mellitus Type 2 (HCC) Carroll Estrada M.D., Ph.D. [address] [place] [phone] [facility] Referral ID Status Reason Start Date Expiration Date Visits Re quested Visits Authorized [id number] Closed 07/05/2022 07/05/2023 1 1 Encounter Details Date Type Department Care Team (Late st Contact Info) Description 07/21/2022 1:00 PM CDT Telemedicine Department of Nutrition and Diabetes Education in [place], [place] [address] [place] [phone] Carroll Estrada M.D., Ph.D. [address] [place] [phone] Karen Calle M.S., RDN, LD [address] [place] [phone] Diabetes Mellitus Type 2 (HCC) Social History [...] often do you attend chur ch or orthodoxy services? More than 4 times per year 05/12/2022 Do you belong to any clubs o r organizations such as protestant groups, unions, fraternal or athletic groups, or [...] and heating? Not hard at all 05/12/2022 [facility] [place] of Occupat ional Health - Occupational Stress [...] watchers in the past. Food Allergies/Intolerances: None Cheondoism/Cultural/Personal Considerations: Brussel sprouts; patent does a lot [...] dip - recently bought some trail mix- Bellamy 3 mix from [employer], macadamia nuts Beverages: water (3-4 x34 oz); sugar free [place]; sugar free sparkling water How much fluid do you drink in a day? (One cup is 8 ounces) : 80+ ounces Alcohol: None Supplements: Bellamy 3 FA, Multivitamin Please see nutrition questionnaire [...] Weight Change: None Estimation of Nutritional Needs 5810-1918 kcals/day ([place] [address] apstrataor x 110 activity factor - 500 kcal [...] My Plate Method) 3. Patient will consume 7806-6565 kcal per day to promote 0.5-1 lb [...] (HCC) documented in this encounter Care Teams Serology Teacher Relationship Specialty Start Date End Date Elsewhere, Pcp PCP - General Internal Medicine 05/17/22 documented as of this encounter
--- OUTSIDE RECORDS SUMMARY | 2023-04-17 08:12 | XMS_ITS | Encounter Summary ---
Author Name Unknown Organization [facility] Address [address] [place] [address] Care Team Providers Care Helper Metal Hanging Name Role Phone Elsewhere, Pcp Primary Care Provider Unavailabl e Reason for Referral * MRI/CAT/PET Scan (Routine) - Closed Specialty Diagnoses / Procedures Referred By Contac t Referred To Contact Radiology Diagnoses Tumor Cerebral Meninges Benign (HCC) Procedures MR Brain without and with IV Contrast Joan Mcgregor MPAS, P.A.-Sudhakar 200 [place] [phone] [facility] Referral ID Status Reason Start Date Expiration Date Visits Re quested Visits Authorized [id number] Closed 09/06/2022 09/17/2023 1 1 Reason for Visit * MRI/CAT/PET Scan (Routine) - Closed Specialty Diagnoses / Procedures Referred By Fern cisneros Referred To Contact Radiology Diagnoses Tumor Cerebral Meninges Benign (HCC) Procedures MR Brain without and with IV Contrast Joan Mcgregor MPAS, P.A.-Sudhakar [address] [place] [phone] [facility] Referral ID Status Reason Start Date Expiration Date Visits Re quested Visits Authorized [id number] Closed 09/06/2022 09/17/2023 1 1 Encounter Details Date Type Department Care Team (Latest Contact Info) Description 10/05/2022 8:25 AM CDT - 10/05/2022 11:59 PM CDT Hospital Encounter Department of Radiology, [facility] in [place], [place] [address] [place] [address] Joan Mcgregor MPAS, P.A.-C. [address] [place] [phone] Tumor Cerebral Meninges Benign (HCC) Discharge Disposition: [...] often do you attend chur ch or scientology services? More than 4 times per year [...] and heating? Not hard at all 09/28/2022 [facility] [place] of Occupat ional Health - Occupational Stress [...] living situation today? I have a [facility] place to live 09/28/2022 Education Answer Date [...] flash glucose scanning reader (FreeStyle Stormy 2 [place]) [facility] Use as directed 1 each 0 07/21/2022 [...] mL documented in this encounter Care Teams Helper Metal Hanging Relationship Specialty Start Date End Date Elsewhere, Pcp PCP - General Internal Medicine 05/17/22 documented as of this encounter
--- OUTSIDE RECORDS SUMMARY | 2023-04-17 08:12 | XMS_ITS | Encounter Summary ---
Author Name Unknown Organization [facility] Address [address] [place] [address] Care Team Providers Care Vending Service Technician Name Role Phone Elsewhere, Pcp Primary Care Provider Unavailabl e Reason for Referral * MRI/CAT/PET Scan (Routine) - Closed Specialty Diagnoses / Procedures Referred By Contac t Referred To Contact Diagnoses Atherosclerotic Heart Disease Of [place] Coronary Artery Without Angina Pectoris Procedures PET CT Cardiac Perfusion Rest and Stress Carroll Estrada M.D., Ph.D. 200 [place] [phone] [facility] Referral ID Status Reason Start Date Expiration Date Visits Re quested Visits Authorized [id number] Closed 05/19/2022 05/19/2023 1 1 Reason for Visit * MRI/CAT/PET Scan (Routine) - Closed Specialty Diagnoses / Procedures Referred By Contac t Referred To Contact Diagnoses Atherosclerotic Heart Disease Of [place] Coronary Artery Without Angina Pectoris Procedures PET CT Cardiac Perfusion Rest and Stress Carroll Estrada M.D., Ph.D. [address] [place] [phone] [facility] Referral ID Status Reason Start Date Expiration Date Visits Re quested Visits Authorized [id number] Closed 05/19/2022 05/19/2023 1 1 Encounter Details Date Type Department Care Team (Latest Contact Info) Description 07/05/2022 6:33 AM CDT - 07/05/2022 11:59 PM CDT Hospital Encounter Department of Radiology, [facility], in [place], [place] 200 [place] [phone] Carroll Estrada M.D., Ph.D. 200 [place] [phone] Atherosclerotic Heart Disease Of [place] Coronary Artery Without Angina Pectoris Discharge Disposition: [...] any clubs o r organizations such as oriental orthodox groups, unions, fraternal or athletic groups, [...] and heating? Not hard at all 05/12/2022 [facility] [place] of Occupat ional Health - Occupational Stress [...] 8:59 AM CDT Atherosclerotic Heart Disease Of [place] Coronary Artery Without Angina Pectoris documented in [...] Visit Diagnoses Diagnosis Atherosclerotic Heart Disease Of [place] Coronary Artery Without Angina Pectoris documented in [...] mL documented in this encounter Care Teams Vending Service Technician Relationship Specialty Start Date End Date Elsewhere, Pcp PCP - General Internal Medicine 05/17/22 documented as of this encounter
--- OUTSIDE RECORDS SUMMARY | 2023-04-17 08:12 | XMS_ITS | Encounter Summary ---
Author Name Unknown Organization [facility] Address [address] [place] [address] Care Team Providers Care Riveter Helper Name Role Phone Elsewhere, Pcp Primary Care Provider Unavailabl e Reason for Referral * Outpatient (Routine) - Closed Specialty Diagnoses / Procedures Referred By Fern cisneros Referred To Contact Endocrinology Diagnoses Diabetes Mellitus Type 2 (HCC) Sky Mai M.B.B.S., M.D. [address] [place] [phone] [facility] Referral ID Status Reason Start Date Expiration Date Visits Re quested Visits Authorized [id number] Closed 07/21/2022 07/20/2025 1 1 Reason for Visit * Outpatient (Routine) - Closed Specialty Diagnoses / Procedures Referred By Fern cisneros Referred To Contact Endocrinology Diagnoses Diabetes Mellitus Type 2 (HCC) Carroll Estrada M.D., Ph.D. [address] [place] [phone] [facility] Referral ID Status Reason Start Date Expiration Date Visits Re quested Visits Authorized [id number] Closed 07/05/2022 07/05/2023 1 1 Encounter Details Date Type Department Care Team (Latest Contact Info) Description 07/21/2022 10:45 AM CDT Telemedicine Division of Endocrinology in [place], [place] [address] [place] [address] [place] [phone] Carroll Estrada M.D., Ph.D. 200 [place] [phone] Sky Mai M.B.B.S., M.Chito. 200 [place] [phone] Hyperlipidemia Mixed (Primary Dx); Diabetes Mellitus Type [...] often do you attend chur ch or worship services? More than 4 times per year 05/12/2022 Do you belong to any clubs o r organizations such as yarsanism groups, unions, fraternal [...] Mr. Russell is a 77-year-old gentleman from [place] referred for optimization of diabetes management. Comorbidities [...] LAB BLOOD AD D-ON Performing Organization Address [facility] de Phone Number [facility] 200 [place] [address], [facility] 200 [place] [address] * (ABNORMAL) Hemoglobin A1c (10/24/2022 8:38 AM [...] LAB BLOOD AD D-ON Performing Organization Address [facility] Co de Phone Number [facility] [address] [place] [address], [facility] 200 [place] [address] * (ABNORMAL) Creatinine with Estimated GFR (10/24/2022 8:38 AM CDT) Creatinine 1.62(H) 0.74 - 1.35 mg/dL 10/24/2022 10:01 AM CDT DTL Estimated GFR (eGFR) 44(L) >=60 mL/min/BSA 10/24/2022 10:01 AM CDT DTL Comment: Estimated GFR calculated using the 2020 CKD_EPI creatinine equation. Blood (Blood, Venous) 10/24/2022 8:38 AM CDT 10/24/2022 9:08 AM CDT Sky Briggs M.D. LAB BLOOD AD D-ON [facility] [address] [place] [address], [facility] DTL [facility] 200 [place] [address] documented in this encounter Visit Diagnoses Diagnosis Hyperlipidemia Mixed- Primary Diabetes Mellitus Type 2 (HCC) Obesity Body Mass Index 30-39.9 Adult documented in this encounter Care Teams Riveter Helper Relationship Specialty Start Date End Date Elsewhere, Pcp PCP - General Internal Medicine 05/17/22 documented as of this encounter
--- OUTSIDE RECORDS SUMMARY | 2023-04-17 08:12 | XMS_ITS | Encounter Summary ---
Author Name Unknown Organization [facility] Address [address] [place] [address] Care Team Providers Care Mortgage Manager Name Role Phone Elsewhere, Pcp Primary Care Provider Unavailabl e Reason for Visit * Reason Onset Date Comments Pre-visit Intake 10/03/2022 Encounter Details Date Type Department Care Team (Latest Contact Info) Description 10/03/2022 2:30 PM CDT Clinical Communication Virtual Review in [place], [place] 200 [place] [address] Pre-visit Intake Social History Tobacco Use Types [...] often do you attend chur ch or baptism services? More than 4 times per year [...] and heating? Not hard at all 09/28/2022 [facility] of Occupat ional Health [...] on filedocumented in this encounter Care Teams Mortgage Manager Relationship Specialty Start Date End Date Elsewhere, Pcp PCP - General Internal Medicine 05/17/22 documented as of this encounter
--- OUTSIDE RECORDS SUMMARY | 2023-04-17 08:12 | XMS_ITS | Encounter Summary ---
Author Name Unknown Organization [facility] Address [address] [place] [address] Care Team Providers Care Vocational Aide Name Role Phone Elsewhere, Pcp Primary Care Provider Unavailabl e Reason for Visit * Outpatient (Routine) - Closed Specialty Diagnoses / Procedures Referred By Fern cisneros Referred To Contact Pulmonary Medicine Diagnoses Asthma (HCC) Carroll Estrada M.D., Ph.D. [address] [place] [phone] [facility] Referral ID Status Reason Start Date Expiration Date Visits Re quested Visits Authorized [id number] Closed 05/19/2022 05/19/2023 1 1 Encounter Details Date Type Department Care Team (Latest Contact Info) Description 06/06/2022 9:30 AM CDT Comprehensive Visit Division of Pulmonary Medicine in [place], [place] [address] [place] [phone] Carroll Estrada M.D., Ph.D. [address] [place] [phone] Vincent Alfredo M.D. Drip Post Nasal (Primary [...] How often do you attend chur or taoism services? More than 4 times [...] and heating? Not hard at all 05/12/2022 [facility] [place] of Occupat ional Health - Occupational Stress [...] place to sleep or slept in a correction (including now)? No 05/12/2022 Nutrition Answer Date [...] Asthma. 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 Patient stated that he was diagnosed with [...] the main reason that the currently at [facility] this time is because he was recently admitted in February of 2022 for influenza infection in [place]. He stated that he has not quite [...] and staffed with Dr. Uriel MD. * Lolyd Trevino Jr., M.D. - 06/06/2022 9:30 AM [...] andhe may be a candidate for the [place] triple nasal spray. He is not had [...] quality of sleep the same as usual. ??[place] Sleepiness Scale was 7. ??Baseline oxygen saturation was 95%, with mean overnight saturation ranging between 94 and 96%. ??Minimal oscillatory variations are most likely artifact related. Impression: ??No significant desaturation or convincing evidence of residual sleep disordered breathing on current CPAP settings. Physician: Ta Bell M.D. [id number] Narrative Procedure Note Ta Bell M.D. - 07/06/2022 IMPRESSION: Overnight oximetry was performed on home CPAP settings and room air. Thepatient denied alcohol or sedative medication on the night of the study,and stated quality of sleep the same as usual. [place] Sleepiness Scalewas 7. Baseline oxygen saturation was 95%, with mean overnight saturation ranging between 94 and96%. Minimal oscillatory variations are most likely artifact related. Impression: No significant desaturation or convincing evidence ofresidual sleep disordered breathing on current CPAP settings. Physician: Ta Bell M.D. [id number] Lloyd Trevino Jr., M.D. PFT ORDERABLE S [facility] Organization Address City/State/ZIP Co de Phone Number [facility] EAP documented in this encounter Visit Diagnoses Diagnosis Drip Post Nasal- Primary Asthma (HCC) Rhinosinusitis Chronic Rhinitis Allergic Apnea Sleep Obstructive Apnea Sleep Obstructive Drip Post Nasal Rhinosinusitis Chronic Rhinitis Allergic documented in this encounter Care Teams Vocational Aide Relationship Specialty Start Date End Date Elsewhere, Pcp PCP - General Internal Medicine 05/17/22 documented as of this encounter
--- OUTSIDE RECORDS SUMMARY | 2023-04-17 08:12 | XMS_ITS | Encounter Summary ---
Author Name Unknown Organization [facility] Address [address] [place] [address] Care Team Providers Care Poultry Tender Name Role Phone Elsewhere, Pcp Primary Care Provider Unavailabl e Reason for Referral * Outpatient (Routine) - Authorized Specialty Diagnoses / Procedures Referred By Fern cisneros Referred To Contact Cardiovascular Disease Carroll Estrada M.D., Ph.D. [address] [place] [phone] [facility] Referral ID Status Reason Start Date Expiration Date V isits Requested Visits Authorized [id number] Authorized 01/29/2023 01/28/2026 1 1 BUILDER Reason for Visit * Outpatient (Routine) - Closed Specialty Diagnoses / Procedures Referred By Fern cisneros Referred To Contact Cardiovascular Disease Carroll Estrada M.D., Ph.D. [address] [place] [phone] [facility] Referral ID Status Reason Start Date Expiration Date Visits Re quested Visits Authorized [id number] Closed 07/05/2022 07/04/2025 1 1 Encounter Details Date Type Department Care Team (Latest Contact Info) Description 01/24/2023 3:15 PM SET BUILDER Office Visit Department of Cardiovascular Medicine in [place], [place] [address] [place] [phone] Carroll Estrada M.D., Ph.D. 200 [place] [phone] Dysfunction Diastolic (Primary Dx); Morbid Obesity (HCC); [...] week 05/12/2022 How often do you attend [facility] or sabianism services? More than 4 times per year 05/12/2022 Do you belong to any clubs o r organizations such as hindu groups, unions, fraternal or athletic groups, or [...] and heating? Not hard at all 09/28/2022 [facility] of Occupat ional [facility] - Occupational Stress Questionnaire Answer Date Recorded [...] Comments Blood Pressure 123/71 01/24/2023 3:03 PM SET BUILDER Pulse 77 01/24/2023 3:03 PM SET BUILDER Temperature - - Respiratory Rate - - Oxygen Saturation - - Inhaled Oxygen Concentration - - Weight 106 kg (233 lb 11 oz) 01/24/2023 3:03 PM SET BUILDER Height 175 cm (5' 8.9) 01/24/2023 3:03 PM SET BUILDER Body Mass Index 34.61 01/24/2023 3:03 PM SET BUILDER documented in this encounter Progress Notes * [...] flash glucose scanning reader (FreeStyle Stormy 2 [place]) [facility] [place] [place] Use as directed flash glucose sensor (FreeStyle [...] the patient today. Time includes both non dlll-ng-dxbc [id number] patient care. Electronically signed by: Carroll Estrada M.D., Ph.D. BUILDER documented in this encounter Plan of Treatment Scheduled Referrals Name Type Priority Associated Diagnoses Order Schedule Cardiovascular Disease office visit (clinic) General Outpatient Referral Routine Expected: 01/30/2024 (Approximate), Expires: 05/01/2024 documented as of this encounter Visit Diagnoses Diagnosis Dysfunction Diastolic- Primary Morbid Obesity (HCC) Hypertension Essential Primary documented in this encounter Care Teams Poultry Tender Relationship Specialty Start Date End Date Elsewhere, Pcp PCP - General Internal Medicine 05/17/22 documented as of this encounter
--- OUTSIDE RECORDS SUMMARY | 2023-04-17 08:12 | XMS_ITS | Encounter Summary ---
Author Name Unknown Organization [facility] Address [address] [place] [address] Care Team Providers Care Pre Sales Technical Engineer Name Role Phone Elsewhere, Pcp Primary Care Provider Unavailabl e Encounter Details Date Type Department Care Team (Latest Contact Info) Description 10/24/2022 8:28 AM CDT - 10/24/2022 11:59 PM CDT Hospital Encounter Department of Laboratory Medicine and Pathology, [facility] in [place], [place] [address] [place] [address] Sky Mai M.B.B.S., [place] [address] [place] [address] Diabetes Mellitus Type 2 (HCC) Discharge Disposition: [...] How often do you attend chur or latter-day services? More than 4 times per year 05/12/2022 Do you belong to any clubs o r organizations such as jew groups, unions, fraternal or athletic groups, or [...] and heating? Not hard at all 09/28/2022 [employer] of Occupat ional Health - Occupational Stress [...] your living situation today? I have a [facility] place to live 09/28/2022 Education Answer [...] flash glucose scanning reader (FreeStyle Stormy 2 [place]) [facility] Use as directed 1 each 0 07/21/2022 [...] LAB BLOOD AD D-ON Performing Organization Address [facility] de Phone Number [facility] [address] [place] [address], [facility] [address] [place] [address] * (ABNORMAL) Hemoglobin A1c (10/24/2022 8:38 AM [...] LAB BLOOD AD D-ON Performing Organization Address [facility] de Phone Number [facility] [address] [place] [address], [facility] [address] [place] [address] * (ABNORMAL) Creatinine with Estimated GFR (10/24/2022 8:38 AM CDT) Creatinine 1.62(H) 0.74 - 1.35 mg/dL 10/24/2022 10:01 AM CDT DTL Estimated GFR (eGFR) 44(L) >=60 mL/min/BSA 10/24/2022 10:01 AM CDT DTL Comment: Estimated GFR calculated using the 2020 CKD_EPI creatinine equation. Blood (Blood, Venous) 10/24/2022 8:38 AM CDT 10/24/2022 9:08 AM CDT Sky Briggs M.D. LAB BLOOD AD D-ON [address] [address], [facility] DTL [address] [address] documented in this encounter Visit Diagnoses Diagnosis Diabetes Mellitus Type 2 (HCC) documented in this encounter Care Teams Pre Sales Technical Engineer Relationship Specialty Start Date End Date Elsewhere, Pcp PCP - General Internal Medicine 05/17/22 documented as of this encounter
--- OUTSIDE RECORDS SUMMARY | 2023-04-17 08:12 | XMS_ITS | Encounter Summary ---
Author Name Unknown Organization [facility] Address [address] [place] [address] Care Team Providers Care Hiv Counselor Name Role Phone Elsewhere, Pcp Primary Care Provider Unavailabl e Reason for Visit * Outpatient (Routine) - Closed Specialty Diagnoses / Procedures Referred By Fern cisneros Referred To Contact Pulmonary Medicine Diagnoses Drip Post Nasal Rhinosinusitis Chronic Rhinitis Allergic Procedures PUL RHINOLARYNGOSCOPY PUL PROC RHINOSCOPY Lloyd Trevino Jr., M.D. [address] [place] [phone] Karen Gomez M.D. [address] [place] [phone] Referral ID Status Reason Start Date Expiration Date Visits Re quested Visits Authorized [id number] Closed 07/06/2022 07/06/2022 1 1 Encounter Details Date Type Department Care Team (Latest Contact Info) Description 07/06/2022 10:58 AM CDT - 07/06/2022 11:59 PM CDT Hospital Encounter Division of Pulmonary Medicine in [place], [place] [address] [place] [phone] Mindy Haskins M.D. [address] [place] [phone] Drip Post Nasal; Rhinosinusitis Chronic; Rhinitis Allergic [...] How often do you attend chur or spiritism services? More than 4 times per year 05/12/2022 Do you belong to any clubs o r organizations such as judaism groups, unions, fraternal [...] and heating? Not hard at all 05/12/2022 [facility] - Occupational Stress Questionnaire Answer Date [...] Allergic documented in this encounter Care Teams Hiv Counselor Relationship Specialty Start Date End Date Elsewhere, Pcp PCP - General Internal Medicine 05/17/22 documented as of this encounter
--- OUTSIDE RECORDS SUMMARY | 2023-04-17 08:12 | XMS_ITS | Encounter Summary ---
Author Name Unknown Organization [facility] Address [address] [place] [address] Care Team Providers Care Escape Wheel Tooth Cutter Name Role Phone Elsewhere, Pcp Primary Care Provider Unavailabl e Reason for Referral * Outpatient (Routine) - Authorized Specialty Diagnoses / Procedures Referred By Fern cisneros Referred To Contact Endocrinology Diagnoses Diabetes Mellitus Type 2 (HCC) Sky Mai M.B.B.S., M.D. [address] [place] [address] [facility] Referral ID Status Reason Start Date Expiration Date V isits Requested Visits Authorized [id number] Authorized 10/24/2022 10/23/2025 1 1 * Medication Prior Authorization - Authorized Specialty Diagnoses / Procedures Referred By Fern cisneors Referred To Contact Sky Mai M.B.B.S., M.D. [address] [place] [address] Referral ID Status Reason Start Date Expiration Date V isits Requested Visits Authorized [id number] Authorized 10/26/2022 10/27/2023 1 1 Reason for Visit * Outpatient (Routine) - Closed Specialty Diagnoses / Procedures Referred By Fern t Referred To Contact Endocrinology Diagnoses Diabetes Mellitus Type 2 (HCC) Sky Mai M.B.B.S., M.D. [address] [place] [address] [facility] Referral ID Status Reason Start Date Expiration Date Visits Re quested Visits Authorized [id number] Closed 07/21/2022 07/20/2025 1 1 Encounter Details Date Type Department Care Team (Latest Contact Info) Description 10/24/2022 2:30 PM CDT Office Visit Division of Endocrinology in [place], [place] [address] [place] [phone] Sky Mai M.B.B.S., M.D. [address] [place] [phone] Diabetes Mellitus Type 2 (HCC) Social History [...] week 05/12/2022 How often do you attend [facility] or adventist services? More than 4 times per year 05/12/2022 Do you belong to any clubs o r organizations such as baptism groups, unions, fraternal or athletic groups, or [...] and heating? Not hard at all 09/28/2022 [facility] of Occupat ional Health - [...] your living situation today? I have a [facility] place to live 09/28/2022 Education [...] (HCC) documented in this encounter Care Teams Escape Wheel Tooth Cutter Relationship Specialty Start Date End Date Elsewhere, Pcp PCP - General Internal Medicine 05/17/22 documented as of this encounter
--- OUTSIDE RECORDS SUMMARY | 2023-04-17 08:13 | XMS_ITS | Clinical Summary ---
Author Name Unknown Organization [facility] Address [place], [place] [address] Care Team Providers Care Contract Design Agent Name Role Phone Tulio Ortiz MD Primary Care Provider [phone] Allergies Active Allergy Reactions Criticality Noted Date [...] per actuation) nasal solution (FLONASE) Inhale 1 Blunt into both nostrils once daily. 1 Bottle [...] Comments Blood Pressure 131/82 01/25/2017 2:30 PM DUMBWAITER OPERATOR Pulse 87 01/25/2017 2:30 PM DUMBWAITER OPERATOR Temperature - - Respiratory Rate - - Oxygen Saturation 97% 01/25/2017 2:30 PM DUMBWAITER OPERATOR Inhaled Oxygen Concentration - - Weight - [...] Influenza for age 65+ 11/11/2022 Care Teams Contract Design Agent Relationship Specialty Start Date End Date Tulio Ortiz MD [address] [place] [phone] PCP - General Family Practice 06/28/21
--- OUTSIDE RECORDS SUMMARY | 2023-04-17 08:13 | XMS_ITS | Encounter Summary ---
Author Name Unknown Organization [facility] Address [address] [place] [address] Care Team Providers Care Corporate Lawyer Name Role Phone Elsewhere, Pcp Primary Care Provider Unavailabl e Reason for Visit * Reason Comments Med Refill Encounter Details Date Type Department Care Team (Late st Contact Info) Description 05/19/2022 Refill Department of Cardiovascular Medicine in [place], [place] [address] [place] [address] Carroll Estrada M.D., Ph.D. [address] [place] [phone] Med Refill Social History Tobacco Use Types [...] How often do you attend chur or denominational services? More than 4 times per year 05/12/2022 Do you belong to any clubs o r organizations such as anabaptism groups, unions, fraternal or athletic groups, or [...] at all 05/12/2022 [facility] of [facility]at [facility] Health - Occupational Stress Questionnaire Answer Date [...] to sleep or slept in a senior living (including now)? No 05/12/2022 Nutrition Answer Date [...] on filedocumented in this encounter Care Teams Corporate Lawyer Relationship Specialty Start Date End Date Elsewhere, Pcp PCP - General Internal Medicine 05/17/22 documented as of this encounter
--- OUTSIDE RECORDS SUMMARY | 2023-04-17 08:13 | XMS_ITS | Encounter Summary ---
Author Name Unknown Organization [facility] Address [address] [place] [address] Care Team Providers Care Commercial Food Instructor Name Role Phone Elsewhere, Pcp Primary Care Provider Unavailabl e Reason for Referral * Outpatient (Routine) - Closed Specialty Diagnoses / Procedures Referred By Stewartac t Referred To Contact Diagnoses Atherosclerotic Heart Disease Of [place] Coronary Artery Without Angina Pectoris Dyspnea On Exertion Procedures Echo Transthoracic (TTE) Carroll Estrada M.D., Ph.D. [address] [place] [phone] [facility] Referral ID Status Reason Start Date Expiration Date Visits Re quested Visits Authorized [id number] Closed 05/19/2022 05/19/2023 1 1 Reason for Visit * Outpatient (Routine) - Closed Specialty Diagnoses / Procedures Referred By Fern t Referred To Contact Diagnoses Atherosclerotic Heart Disease Of [place] Coronary Artery Without Angina Pectoris Dyspnea On Exertion Procedures Echo Transthoracic (TTE) Carroll Estrada M.D., Ph.D. [address] [place] [phone] [facility] Referral ID Status Reason Start Date Expiration Date Visits Re quested Visits Authorized [id number] Closed 05/19/2022 05/19/2023 1 1 Encounter Details Date Type Department Care Team (Latest Contact Info) Description 05/27/2022 12:13 PM CDT - 05/27/2022 11:59 PM CDT Hospital Encounter Department of Cardiovascular Diseases in [place], [place] 200 [place] [address] Carroll Estrada M.D., Ph.D. 200 [place] [phone] Atherosclerotic Heart Disease Of [place] Coronary Artery Without Angina Pectoris; Dyspnea On [...] and heating? Not hard at all 05/12/2022 [facility] Questionnaire Answer Date Recorded [...] place to sleep or slept in a snf (including now)? No 05/12/2022 Nutrition Answer Date [...] 1:55 PM CDT Atherosclerotic Heart Disease Of [place] Coronary Artery Without Angina Pectoris Dyspnea On [...] Visit Diagnoses Diagnosis Atherosclerotic Heart Disease Of [place] Coronary Artery Without Angina Pectoris Dyspnea On Exertion documented in this encounter Care Teams Commercial Food Instructor Relationship Specialty Start Date End Date Elsewhere, Pcp PCP - General Internal Medicine 05/17/22 documented as of this encounter
--- OUTSIDE RECORDS SUMMARY | 2023-04-17 08:13 | XMS_ITS | Encounter Summary ---
Author Name Unknown Organization [facility] Address [address] [place] [address] Care Team Providers Care Civil Structural Designer Name Role Phone Elsewhere, Pcp Primary Care Provider Unavailabl e Encounter Details Date Type Department Care Team (Late st Contact Info) Description 05/19/2022 9:30 AM COMPUTER REPAIR INSTRUCTOR Diagnostic Division of Pulmonary Medicine in [place], [place] [address] [place] [phone] Carroll Estrada M.D., Ph.D. [address] [place] [phone] Asthma (HCC) Social History Tobacco Use Types [...] often do you attend chur ch or restoration services? More than 4 times per year [...] and heating? Not hard at all 05/12/2022 [facility] of Occupat ional Health - [...] EXHALED NITRIC OXIDE Routine 05/19/2022 9:36 AM COMPUTER REPAIR INSTRUCTOR Asthma (HCC) documented in this encounter Results * PUL Exhaled Nitric Oxide (05/19/2022 9:36 AM COMPUTER REPAIR INSTRUCTOR) Exhaled NO Oral 40 ONBASE Parts per billion (ULN) 39 ONBASE ENOComment Patient takes Albuterol and Flonase ONBASE Carroll Estrada M.D., Ph.D. PFT ORDERABLES ONBASE NA documented in this encounter Visit Diagnoses Diagnosis Asthma (HCC) documented in this encounter Care Teams Civil Structural Designer Relationship Specialty Start Date End Date Elsewhere, Pcp PCP - General Internal Medicine 05/17/22 documented as of this encounter
--- OUTSIDE RECORDS SUMMARY | 2023-04-17 08:13 | XMS_ITS | Encounter Summary ---
Author Name Unknown Organization [facility] Address [address] [place] [id number] Care Team Providers Care Linen Room Attendant Name Role Phone Elsewhere, Pcp Primary Care Provider Unavailabl e Reason for Referral * Outpatient (Routine) - Closed Specialty Diagnoses / Procedures Referred By Fern cisneros Referred To Contact Cardiovascular Disease Carroll Estrada M.D., Ph.D. [address] [place] [phone] [facility] Referral ID Status Reason Start Date Expiration Date Visits Re quested Visits Authorized [id number] Closed 05/19/2022 05/18/2025 1 1 ION COOK * Outpatient (Routine) - Closed Specialty Diagnoses / Procedures Referred By Fern cisneros Referred To Contact Pulmonary Medicine Diagnoses Asthma (HCC) Carroll Estrada M.D., Ph.D. [address] [place] [phone] [facility] Referral ID Status Reason Start Date Expiration Date Visits Re quested Visits Authorized [id number] Closed 05/19/2022 05/19/2023 1 1 ION COOK * Outpatient (Routine) - Authorized Specialty Diagnoses / Procedures Referred By Fern t Referred To Contact Endocrinology Diagnoses Morbid Obesity (HCC) Carroll Estrada M.D., Ph.D. [address] [place] [phone] [facility] Referral ID Status Reason Start Date Expiration Date V isits Requested Visits Authorized [id number] Authorized 05/19/2022 05/19/2023 1 1 ION COOK * Outpatient (Routine) - Authorized Specialty Diagnoses / Procedures Referred By Contac t Referred To Contact Nutrition Diagnoses Morbid Obesity (HCC) Carroll Estrada M.D., Ph.D. [address] [place] [phone] [facility] Referral ID Status Reason Start Date Expiration Date V isits Requested Visits Authorized [id number] Authorized 05/19/2022 05/19/2023 1 1 ION COOK * Outpatient (Routine) - Authorized Specialty Diagnoses / Procedures Referred By Contac t Referred To Contact Diagnoses Dyspnea On Exertion Procedures ECG Heart Rhythm Monitor (Holter) Carroll Estrada M.D., Ph.D. [address] [place] [phone] [facility] Referral ID Status Reason Start Date Expiration Date V isits Requested Visits Authorized [id number] Authorized 05/19/2022 05/19/2023 1 1 ION COOK * MRI/CAT/PET Scan (Routine) - Closed Specialty Diagnoses / Procedures Referred By Contac t Referred To Contact Diagnoses Atherosclerotic Heart Disease Of [place] Coronary Artery Without Angina Pectoris Procedures PET CT Cardiac Perfusion Rest and Stress Carroll Estrada M.D., Ph.D. [address] [place] [phone] [facility] Referral ID Status Reason Start Date Expiration Date Visits Re quested Visits Authorized [id number] Closed 05/19/2022 05/19/2023 1 1 ION COOK * Outpatient (Routine) - Closed Specialty Diagnoses / Procedures Referred By Fern cisneros Referred To Contact Diagnoses Atherosclerotic Heart Disease Of [place] Coronary Artery Without Angina Pectoris Dyspnea On Exertion Procedures Echo Transthoracic (TTE) Carroll Estrada M.D., Ph.D. 200 [place] [phone] [facility] Referral ID Status Reason Start Date Expiration Date Visits Re quested Visits Authorized [id number] Closed 05/19/2022 05/19/2023 1 1 ION COOK Reason for Visit * Outpatient (Routine) - Closed Specialty Diagnoses / Procedures Referred By Fern cisneros Referred To Contact Cardiovascular Disease Diagnoses Atherosclerotic Heart Disease Of [place] Coronary Artery Without Angina Pectoris Tulio Ortiz M.D. [address] [place] [phone] [facility] Referral ID Status Reason Start Date Expiration Date Visits Re quested Visits Authorized [id number] Closed 04/04/2022 04/04/2023 1 1 Encounter Details Date Type Department Care Team (Latest Contact Info) Description 05/19/2022 8:15 AM STATION COOK Comprehensive Visit Department of Cardiovascular Medicine in [place], [place] [address] [place] [phone] Carroll Estrada M.D., Ph.D. [address] [place] [phone] Hypertension Essential Primary (Primary Dx); Atherosclerotic Heart Disease Of [place] Coronary Artery Without Angina Pectoris; Dyspnea On [...] How often do you attend chur or rastafari services? More than 4 times per year [...] and heating? Not hard at all 05/12/2022 [facility] - Occupational Stress [...] place to sleep or slept in a group home (including now)? No 05/12/2022 Nutrition Answer [...] Comments Blood Pressure 129/76 05/19/2022 8:04 AM STATION COOK Pulse 101 05/19/2022 8:04 AM STATION COOK Temperature - - Respiratory Rate - - Oxygen Saturation - - Inhaled Oxygen Concentration - - Weight 110 kg (241 lb 6.5 oz) 05/19/2022 8:04 AM STATION COOK Height 177.1 cm (5' 9.72) 05/19/2022 8:04 AM CS T Body Mass Index 34.91 05/19/2022 8:04 AM STATION COOK documented in this encounter Consult Notes * [...] these findings and decided to come to [facility] for further evaluation. 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) Mr. Russell presents with progressive dyspnea on [...] the patient today. Time includes both non [id number] patient care. Electronically signed by: Carroll Estrada M.D., Ph.D. ION COOK * Nic Ashton M.D. - 05/19/2022 8:15 [...] will explore his pulmonary status as well ION COOK documented in this encounter Plan of Treatment [...] Asthma consult (clinic) Outpatient Referral Routine Asthma ([facility]) Expected: 05/19/2022 (Approximate), Expires: 08/20/2023 Cardiovascular Disease office visit (clinic) General Outpatient Referral Routine Expected: 06/19/2022 (Approximate), Expires: 08/20/2023 documented as of this encounter Procedures Procedure Name Priority Date/Time Associated Diagnosis Comments NT-PRO B-TYPE NATRIURETIC PEPTIDE (BNP), S Routine 05/19/2022 7:05 AM STATION COOK Atherosclerotic Heart Disease Of [place] Coronary Artery Without Angina Pectoris HEMOGLOBIN A1C, B Routine 05/19/2022 7:0 5 AM STATION COOK Diabetes Mellitus Type 2 (HCC) IMMUNOGLOBULIN E (IGE), S Routine 05/19/2022 7:05 AM STATION COOK Asthma ([facility]) documented in this encounter Results * PET CT Cardiac Perfusion Rest and Stress (07/05/2022 8:59 AM CDT) 07/05/2022 6:33 AM CDT Narrative EMANUEL CV [employer] - 07/05/2022 10:11 AM CDT See PDF For Result Procedure Note Dex Melgar M.D. - 07/05/2022 See PDF For Result Carroll Estrada M.D., Ph.D. [facility] [place] PROCEDUR ES MC CV MERGE NA * (TTE) 2D ECHO DOPPLER COLOR (05/27/2022 1:55 PM CDT) [facility] Ejection Fraction 69 MC CV EIMS Sinus [...] PostFVC 4.11 L 05/27/2022 11:31 AM CDT [facility] SUITE PostFEV1 3.21 L 05/27/2022 11:31 AM CDT [facility] SU[facility] FEV1/FVC POST 78.21 % 05/27/2022 11:31 AM CDT [facility] SUITE FEF 25-75 % POST 2.71 L/s 05/27/2022 11:31 AM CDT [facility] SU[facility] PEF POST 9.18 L/s 05/27/2022 11:31 AM CDT [facility] SU[facility] PIF POST 7.21 L/s 05/27/2022 11:31 AM CDT [facility] SUITE FEF 50 % FIF 50 POST 44.90 % 05/27/2022 11:31 AM CDT [facility] SUITE FET POST 8.56 sec 05/27/2022 11:31 AM CDT [facility] SUITE DLCO 19.41 ml/(min*mm Hg) 05/27/2022 11:31 AM CDT [facility] SUITE DLCOc 20.19 ml/(min*mm Hg) 05/27/2022 11:31 AM CDT [facility] HB 13.30 g(Hb)/dL 05/27/2022 11:31 AM CDT [facility] VA 6.59 L 05/27/2022 11:31 AM CDT [facility] SUITE FVC 4.28 L 05/27/2022 11:31 AM CDT [facility] SUITE FEV1 3.15 L 05/27/2022 11:31 AM CDT [facility] FEV1/FVC 73.55 % 05/27/2022 11:31 AM CDT [facility] SUITE RFW06-24% 2.06 L/s 05/27/2022 11:31 AM CDT [facility] SUITE PEF PRE 9.06 L/s 05/27/2022 11:31 AM CDT [facility] SUITE PIF PRE 6.77 L/s 05/27/2022 11:31 AM CDT [facility] SUITE FEF 50 % FIF 50 PRE 39.49 % 05/27/2022 11:31 AM CDT [facility] SUITE FET PRE 12.61 sec 05/27/2022 11:31 AM CDT [facility] SUBSTANCE POST Albuterol 05/27/2022 11:31 AM CDT [facility] 05/27/2022 8:12 AM CDT Impressions [facility] - 05/27/2022 11:31 AM CDT Normal spirometry with no acute bronchodilator response and normal diffusing capacity. Narrative Procedure Note Julian Martinez M.D., Ph.D. - 05/27/2022 IMPRESSION: Normal spirometry with no acute bronchodilator response and normaldiffusing capacity. Carroll Estrada M.D., Ph.D. PFT ORDERABLES [facility] NA * HOLTER MONITOR - IN CLINIC LAP CHECKER (05/20/2022 1:41 PM STATION COOK) Min Heart Rate 64 bpm [facility] Max Heart Rate 121 bpm [facility] Mean Heart Rate 84 bpm [facility]OME VE Total Beats 1431 count [facility] MOME VE Percent Beats 1 percent [facility] SVE Total Beats 6709 count INFOBION[facility] MOME SVE Percent Beats 6 percent [facility]OME AF Count 0 count [facility] MOME AF Duration 0 duration [facility] MOME AF Occidental 0 percent [facility] Symptom Count 7 count [facility]OME 05/19/2022 10:2 3 AM STATION COOK Narrative [facility] - 05/23/2022 11:09 AM [...] run ??before, during, and after the events. [employer] Police Sergeant: León Brown / [id number] Procedure Note Alex Nicole M.D. - 05/23/2022 [place] 1. The basic rhythm was sinus with [...] atrial run before, during, and after theevents. [employer] Police Sergeant: León Brown / [id number] Carroll Estrada M.D., Ph.D. CV CARDIAC SERV ICES PROCEDURES [facility] NA * PUL Exhaled Nitric Oxide (05/19/2022 9:36 AM STATION COOK) Exhaled NO Oral 40 ONBASE Parts per billion (ULN) 39 ONBASE ENOComment Patient takes Albuterol and Flonase ONBASE Carroll Estrada M.D., Ph.D. PFT ORDERABLES Performing Organization Address City/[facility] Co de Phone Number ONBASE NA * (ABNORMAL) Hemoglobin A1c (05/19/2022 7:05 AM STATION COOK) Pathologist [facility] Hemoglobin A1c, B 7.7(H) 4.0 - 5.6 % 05/19/2022 11:07 AM STATION COOK DTL Comment: Hemoglobin A1c values greater than or equal to 6.5 percent are diagnostic for diabetes mellitus. ??Diagnosis should be confirmed by repeat testing. ??In diabetic patients, HbA1c goals should be discussed with healthcare provider. Blood (Blood, Venous) 05/19/2022 7:05 AM STATION COOK 05/19/2022 10:39 AM STATION COOK Carroll Estrada M.D., Ph.D. LAB BLOOD ADD-O N Performing Organization Address [facility] de Phone Number [facility] [address] [place] [address], [facility] [address] [place] [address] * Immunoglobulin E (IgE) (05/19/2022 7:05 AM STATION COOK) [facility] Immunoglobulin E (IgE), S <2.0 <=214 kU/L 05/19/2022 5:06 PM STATION COOK [facility] Blood (Blood, Venous) 05/19/2022 7:05 AM STATION COOK 05/19/2022 2:54 PM STATION COOK Carroll Estrada M.D., Ph.D. LAB BLOOD ADD-O N Performing Organization Address City/[facility] Co de Phone Number [facility] [address] [place] [address] [facility] [address] [place] [address] * NT-Pro B-Type Natriuretic Peptide (BNP) (05/19/2022 7:05 AM STATION COOK) Pathologist [facility] NT-Pro BNP 27 <=540 pg/mL 05/19/2022 11:52 AM STATION COOK DTL Comment: NT-proBNP values less than 300 [...] failure. Blood (Blood, Venous) 05/19/2022 7:05 AM STATION COOK 05/19/2022 9:51 AM STATION COOK Carroll Estrada M.D., Ph.D. LAB BLOOD ADD-O N [place] [address] [place] [address], [address] [address] documented in this encounter Visit Diagnoses Diagnosis Hypertension Essential Primary- Primary Atherosclerotic Heart Disease Of [place] Coronary Artery Without Angina Pectoris Dyspnea On Exertion Morbid Obesity (HCC) Asthma (HCC) Diabetes Mellitus Type 2 (HCC) Dyspnea On Exertion Atherosclerotic Heart Disease Of [place] Coronary Artery Without Angina Pectoris Dyspnea On Exertion Atherosclerotic Heart Disease Of [place] Coronary Artery Without Angina Pectoris documented in this encounter Care Teams Linen Room Attendant Relationship Specialty Start Date End Date Elsewhere, Pcp PCP - General Internal Medicine 05/17/22 documented as of this encounter
--- OUTSIDE RECORDS SUMMARY | 2023-04-17 08:13 | XMS_ITS | Encounter Summary ---
Author Name Unknown Organization [facility] Address [address] [place] [address] Care Team Providers Care Relief Map Modeler Name Role Phone Elsewhere, Pcp Primary Care Provider Unavailabl e Encounter Details Date Type Department Care Team (Latest Contact Info) Description 05/19/2022 6:55 AM TELEVISION SCHEDULE COORDINATOR - 05/19/2022 10:18 AM [facility] Hospital Encounter Department of Laboratory Medicine and Pathology, [facility] in [place], [place] [address] [place] [address] Jessica Flores, P.A.-C. Atherosclerotic Heart Disease Of [place] Coronary Artery Without Angina Pectoris; Fatigue Discharge [...] How often do you attend chur or islam services? More than 4 times per year 05/12/2022 Do you belong to any clubs o r organizations such as religion groups, unions, fraternal or athletic groups, or [...] and heating? Not hard at all 05/12/2022 [facility] Occupat ional Health - Occupational [...] in a senior care (including now)? No 05/12/2022 Nutrition Answer Date [...] Procedure Name Priority Date/Time Associated Diagnosis Comments ID T4 FREE Routine 05/19/2022 7:07 AM TELEVISION SCHEDULE COORDINATOR LIPID PANEL, S Routine 05/19/2022 7:07 AM TELEVISION SCHEDULE COORDINATOR Atherosclerotic Heart Disease Of [place] Coronary Artery Without Angina Pectoris Fatigue THYROID FUNCTION CASCADE, S Routine 05/19/2022 7:07 AM TELEVISION SCHEDULE COORDINATOR Atherosclerotic Heart Disease Of [place] Coronary Artery Without Angina Pectoris Fatigue THYROPEROXIDASE (TPO) ABS, S Routine 05/19/2022 7:07 AM TELEVISION SCHEDULE COORDINATOR CBC WITH DIFFERENTIAL, B Routine 05/19/2022 7:07 AM TELEVISION SCHEDULE COORDINATOR Atherosclerotic Heart Disease Of [place] Coronary Artery Without Angina Pectoris Fatigue BASIC METABOLIC PANEL, S/P Routine 05/19/2022 7:07 AM TELEVISION SCHEDULE COORDINATOR Atherosclerotic Heart Disease Of [place] Coronary Artery Without Angina Pectoris Fatigue documented in this encounter Results * T4 (Thyroxine), Free, Serum (05/19/2022 7:07 AM TELEVISION SCHEDULE COORDINATOR) T4 (Thyroxine), Free, S 1.1 0.9 - 1.7 ng/dL 05/19/2022 8:30 AM TELEVISION SCHEDULE COORDINATOR DTL Blood 05/19/2022 7:07 AM TELEVISION SCHEDULE COORDINATOR 05/19/2022 7:44 AM TELEVISION SCHEDULE COORDINATOR Jessica Flores P.A.-C. LAB BLOOD ADD-O N Performing Organization Address [facility]/ZIP Co de Phone Number [address] [place] [address] * Thyroperoxidase (TPO) Antibodies (05/19/2022 7:07 AM TELEVISION SCHEDULE COORDINATOR) [facility] Thyroperoxidase Ab, S <15.0 <34.0 IU/mL 05/19/2022 8:30 AM TELEVISION SCHEDULE COORDINATOR DT Blood 05/19/2022 7:07 AM TELEVISION SCHEDULE COORDINATOR 05/19/2022 7:44 AM TELEVISION SCHEDULE COORDINATOR Jessica SmartARosa-C. LAB BLOOD ADD-O N Performing Organization Address City/[facility]/ZIP Co de Phone Number [facility] [address] [place] [address] * (ABNORMAL) Lipid Panel (05/19/2022 7:07 AM TELEVISION SCHEDULE COORDINATOR) Pathologist [facility] Triglycerides 422(H) mg/dL 05/19/2022 8:10 AM TELEVISION SCHEDULE COORDINATOR DT Comment: ----REFERENCE VALUE---- Normal: <150 mg/dL Borderline High: 150-199 mg/dL High: 200-499 mg/dL Very High: > or =500 mg/dL Cholesterol, Total 176 mg/dL 2022 8:42 AM TELEVISION SCHEDULE COORDINATOR DTL Comment: ----REFERENCE VALUE---- Desirable: < 200 mg/dL Borderline High: 200 - 239 mg/dL High: > or = 240 mg/dL Cholesterol, LDL, Calculated 80 mg/dL 05/19/2022 8:42 AM TELEVISION SCHEDULE COORDINATOR DTL Comment: ----REFERENCE VALUE---- Desirable: <100 mg/dL Above Desirable: 100-129 mg/dL Borderline High: 130-159 mg/dL High: 160-189 mg/dL Very High: >=190 mg/dL ----ADDITIONAL INFORMATION---- LDL cholesterol calculated using the Lassiter/NIH equation. Cholesterol, HDL, S 28(L) >=40 mg/dL 05/19/2022 8:10 AM TELEVISION SCHEDULE COORDINATOR DTL Cholesterol, Non-HDL, Calculated 148 mg/dL 05/19/2022 8:42 AM TELEVISION SCHEDULE COORDINATOR DTL Comment: ----REFERENCE VALUE---- Desirable: <130 mg/dL Above Desirable: 130-159 mg/dL Borderline High: 160-189 mg/dL High: 190-219 mg/dL Very High: > or =220 mg/dL Fasting (8 HR or more) No 05/19/2022 7:44 AM TELEVISION SCHEDULE COORDINATOR DTL Blood (Blood, Venous) 05/19/2022 7:07 AM TELEVISION SCHEDULE COORDINATOR 05/19/2022 7:44 AM TELEVISION SCHEDULE COORDINATOR Jessica Flores P.A.-C. LAB BLOOD ADD-O N [facility] [address] [place] [address], [place] [facility] [address] [place] [address] * (ABNORMAL) Thyroid Function [place] (05/19/2022 7:07 AM TELEVISION SCHEDULE COORDINATOR) TSH, Sensitive 4.8(H) 0.3 - 4.2 mIU/L 05/19/2022 8:10 AM TELEVISION SCHEDULE COORDINATOR DTL Blood (Blood, Venous) 05/19/2022 7:07 AM TELEVISION SCHEDULE COORDINATOR 05/19/2022 7:44 AM TELEVISION SCHEDULE COORDINATOR Jessica Flores P.A.-C. LAB BLOOD ADD-O N [facility] [address] [place] [address], [place] DTL [facility] [address] [place] [address] * CBC with Differential, Blood (05/19/2022 7:07 AM TELEVISION SCHEDULE COORDINATOR) Hemoglobin 13.3 13.2 - 16.6 g/dL 05/19/2022 7:46 AM TELEVISION SCHEDULE COORDINATOR DTL Hematocrit 40.2 38.3 - 48.6 % 05/19/2022 7:46 AM TELEVISION SCHEDULE COORDINATOR DTL Erythrocytes 4.49 4.35 - 5.65 x10(12)/L 05/19/2022 7:46 AM TELEVISION SCHEDULE COORDINATOR DTL MCV 89.5 78.2 - 97.9 fL 05/19/2022 7:46 AM TELEVISION SCHEDULE COORDINATOR DTL RBC Distrib Width 14.4 11.8 - 14.5 % 05/19/2022 7:46 AM TELEVISION SCHEDULE COORDINATOR DTL Platelet Count 195 135 - 317 x10(9)/L 05/19/2022 7:46 AM TELEVISION SCHEDULE COORDINATOR DTL Leukocytes 5.2 3.4 - 9.6 x10(9)/L 05/19/2022 7:46 AM TELEVISION SCHEDULE COORDINATOR DTL Neutrophils 3.17 1.56 - 6.45 x10(9)/L 05/19/2022 7:46 AM TELEVISION SCHEDULE COORDINATOR DTL Lymphocytes 1.02 0.95 - 3.07 x10(9)/L 05/19/2022 7:46 AM TELEVISION SCHEDULE COORDINATOR DTL Monocytes 0.52 0.26 - 0.81 x10(9)/L 05/19/2022 7:46 AM TELEVISION SCHEDULE COORDINATOR DTL Eosinophils 0.43 0.03 - 0.48 x10(9)/L 05/19/2022 7:46 AM TELEVISION SCHEDULE COORDINATOR DTL Basophils 0.06 0.01 - 0.08 x10(9)/L 05/19/2022 7:46 AM TELEVISION SCHEDULE COORDINATOR DTL Blood (Blood, Venous) 05/19/2022 7:07 AM TELEVISION SCHEDULE COORDINATOR 05/19/2022 7:33 AM TELEVISION SCHEDULE COORDINATOR Jessica Flores P.A.-C. LAB BLOOD ADD-O N Performing Organization Address City/State/[facility] Co de Phone Number [facility] [address] [place] [address], [place] DTL [facility] [address] [place] [address] * (ABNORMAL) Basic Metabolic Panel (05/19/2022 7:07 AM TELEVISION SCHEDULE COORDINATOR) Potassium, S 4.4 3.6 - 5.2 mmol/L 05/19/2022 8:10 AM TELEVISION SCHEDULE COORDINATOR DTL Sodium, S 138 135 - 145 mmol/L 05/19/2022 8:10 AM TELEVISION SCHEDULE COORDINATOR DTL Chloride, S 100 98 - 107 mmol/L 05/19/2022 8:10 AM TELEVISION SCHEDULE COORDINATOR DTL Bicarbonate, S 24 22 - 29 mmol/L 05/19/2022 8:10 AM TELEVISION SCHEDULE COORDINATOR DTL Anion Gap 14 7 - 15 05/19/2022 8:10 AM TELEVISION SCHEDULE COORDINATOR DTL BUN (Blood Urea Nitrogen), S 22 8 - 24 mg/dL 05/19/2022 8:10 AM TELEVISION SCHEDULE COORDINATOR DTL Creatinine 1.47(H) 0.74 - 1.35 mg/dL 05/19/2022 8:10 AM TELEVISION SCHEDULE COORDINATOR DTL Estimated GFR (eGFR) 49(L) >=60 mL/min/BSA 05/19/2022 8:10 AM TELEVISION SCHEDULE COORDINATOR DTL Comment: Estimated GFR calculated using the 2020 CKD_EPI creatinine equation. Calcium, Total, S 10.0 8.8 - 10.2 mg/dL 05/19/2022 8:10 AM TELEVISION SCHEDULE COORDINATOR DTL Glucose, S 173(H) 70 - 140 mg/dL 05/19/2022 8:10 AM TELEVISION SCHEDULE COORDINATOR DTL Blood (Blood, Venous) 05/19/2022 7:07 AM TELEVISION SCHEDULE COORDINATOR 05/19/2022 7:44 AM TELEVISION SCHEDULE COORDINATOR Jessica Flores P.A.-C. LAB BLOOD ADD-O N [facility] [address] [place] [address], [place] DTL [facility] [address] [place] [address] documented in this encounter Visit Diagnoses Diagnosis Atherosclerotic Heart Disease Of [place] Coronary Artery Without Angina Pectoris Fatigue documented in this encounter Care Teams Relief Map Modeler Relationship Specialty Start Date End Date Elsewhere, Pcp PCP - General Internal Medicine 05/17/22 documented as of this encounter
--- OUTSIDE RECORDS SUMMARY | 2023-04-17 08:13 | XMS_ITS | Encounter Summary ---
Author Name Unknown Organization [facility] Address [address] [place] [id number] Care Team Providers Care Business Intelligence Etl Developer Name Role Phone Elsewhere, Pcp Primary Care Provider Unavailabl e Reason for Referral * Outpatient (Routine) - Authorized Specialty Diagnoses / Procedures Referred By Contac t Referred To Contact Diagnoses Dyspnea On Exertion Procedures ECG Heart Rhythm Monitor (Holter) Carroll Estrada M.D., Ph.D. [address] [place] [phone] [facility] Referral ID Status Reason Start Date Expiration Date V isits Requested Visits Authorized [id number] Authorized 05/19/2022 05/19/2023 1 1 OL PSYCHOLOGY SPECIALIST Reason for Visit * Outpatient (Routine) - Authorized Specialty Diagnoses / Procedures Referred By Contac t Referred To Contact Diagnoses Dyspnea On Exertion Procedures ECG Heart Rhythm Monitor (Holter) Carroll Estrada M.D., Ph.D. [address] [place] [phone] [facility] Referral ID Status Reason Start Date Expiration Date V isits Requested Visits Authorized [id number] Authorized 05/19/2022 05/19/2023 1 1 Encounter Details Date Type Department Care Team (Latest Contact Info) Description 05/19/2022 10:19 AM SCHOOL PSYCHOLOGY SPECIALIST - 05/19/2022 11:59 PM SCHOOL PSYCHOLOGY SPECIALIST Hospital Encounter Department of Cardiovascular Diseases in [place], [place] 200 [place] [phone] Carroll Estrada M.D., Ph.D. 200 [place] [phone] Dyspnea On Exertion Discharge Disposition: Home or [...] How often do you attend chur or rastafarian services? More than 4 times per year 05/12/2022 Do you belong to any clubs o r organizations such as religious groups, unions, fraternal or athletic groups, or [...] and heating? Not hard at all 05/12/2022 [facility] - [...] place to sleep or slept in a half-way (including now)? No 05/12/2022 Nutrition Answer Date [...] Diagnosis Comments HOLTER MONITOR - IN CLINIC ADMISSION NURSE COORDINATOR Routine 05/20/2022 1:41 PM SCHOOL PSYCHOLOGY SPECIALIST Dyspnea On Exertion documented in this encounter Results * HOLTER MONITOR - IN CLINIC ADMISSION NURSE COORDINATOR (05/20/2022 1:41 PM SCHOOL PSYCHOLOGY SPECIALIST) Min Heart Rate 64 bpm INFOBIONIC MOME Max Heart Rate 121 bpm INFOBIONIC MOME Mean Heart Rate 84 bpm INFOBIONIC MOME VE Total Beats 1431 count INFOBIONIC MOME VE Percent Beats 1 percent INFOBIONIC MOME SVE Total Beats 6709 count INFOBIONIC MOME SVE Percent Beats 6 percent INFOBIONIC MOME AF Count 0 count INFOBIONIC MOME AF Duration 0 duration INFOBIONIC MOME AF [place] 0 percent INFOBIONIC MOME Symptom Count 7 count INFOBIONIC MOME 05/19/2022 10:2 3 AM SCHOOL PSYCHOLOGY SPECIALIST Narrative INFOBIONIC MOME - 05/23/2022 11:09 AM [...] run ??before, during, and after the events. Feather Boner: León Brown [phone] Procedure Note Alex Nicole [...] atrial run before, during, and after theevents. Feather Boner: León Brown / [email or web address] Carroll Estrada M.D., Ph.D. CV CARDIAC SERV ICES PROCEDURES INFOBIONIC MOME NA documented in this encounter Visit Diagnoses Diagnosis Dyspnea On Exertion documented in this encounter Care Teams Business Intelligence Etl Developer Relationship Specialty Start Date End Date Elsewhere, Pcp PCP - General Internal Medicine 05/17/22 documented as of this encounter
--- OUTSIDE RECORDS SUMMARY | 2023-04-17 08:13 | XMS_ITS | Encounter Summary ---
Author Name Unknown Organization [facility] Address [address] [place] [id number] Care Team Providers Care Feed Management Advisor Name Role Phone Elsewhere, Pcp Primary Care Provider Unavailabl e Reason for Visit * Reason Onset Date Comments Pre-visit Intake 05/17/2022 Encounter Details Date Type Department Care Team (Latest Contact Info) Description 05/17/2022 9:45 AM TYPING CHECKER Clinical Communication Virtual Review in [place], [place] 200 [place] [address] Pre-visit Intake Social History Tobacco Use Types [...] How often do you attend chur or methodist services? More than 4 times per year [...] and heating? Not hard at all 05/12/2022 [facility] Occupat ional [facility] - Occupational Stress [...] on filedocumented in this encounter Care Teams Feed Management Advisor Relationship Specialty Start Date End Date Elsewhere, Pcp PCP - General Internal Medicine 05/17/22 documented as of this encounter
--- NOTE | 2023-04-17 08:50 | P.GSOP_ITS ---
Operative Note Date of procedure: 04/17/23 Pre-op diagnosis: 1. Symptomatic supraumbilical and umbilical hernia. 2. History of umbilical hernia repair. Post-op diagnosis: 1. Multiple periumbilical hernia defects with incarcerated fat. 2. History of umbilical hernia repair with mesh. Type of Procedure: 1. Open ventral hernia repair with mesh 8 x 12 cm. Indications: 77-year-old male was seen in clinic for evaluation of supraumbilical bulge that was painful. Patient had 3 weeks of prolonged cough and after those coughing spells, he noticed a pop above his belly button. Since he noticed the bulge, it was sensitive to touch. Patient was previously seen for evaluation of a supraumbilical hernia 2 years ago but decided not to proceed with repair. He also thought that he had an umbilical hernia repair in the past but could not recall if mesh was placed or not. On clinical exam there is a small pea-sized umbilical bulge noted and about 2 cm superior to the umbilicus there was a supraumbilical bulge palpated. The bulge with bilobed extending to the left of the midline. Given patient's clinical history and his continued pain, a supraumbilical and umbilical hernia repair was recommended. The procedure was discussed in detail. The risks associated procedure including infection, bleeding, injury to intra-abdominal organs, and hernia recurrence were all discussed with the patient, and he agreed to proceed. Procedure Description: After discussing the risks and benefits of the procedure, the patient signed informed consent.? The operative site was marked and the patient was brought to the operating room and placed on the operating table in supine position.? Care was taken to pad the patient's pressure points.?? The patient was then intubated by anesthesia.?? The operative site was then prepped and draped in the usual sterile fashion.? A time-out was then performed. A supraumbilical skin incision was made with a scalpel. Subcutaneous fat was divided with cautery down to the supraumbilical fascia. Preperitoneal fat was incarcerated through the fascial defect. This fat was dissected away from the fascial defect and was reduced. I was able to put my finger through the fascial defect and palpate the fascia are underneath. Preperitoneal fat was also inca rcerated through the umbilical fascial defect. Previously placed mesh was palpated at the superior aspect of the umbilicus and was well incorporated into the anterior fascia and subcutaneous fat. Ethibond sutures were noted and those were removed. The fascial bridge between the umbilical and supraumbilical fascial defects was connected with cautery to make this into a single common fascial defect. I then proceeded with developing preperitoneal space. When dissecting inferiorly, additional fascial defect was palpated at least 1 cm inferior to the umbilicus. This fascial defect was at least 1.5 cm. Preperitoneal fat was incarcerated in this fascial defect. I elected to extend my skin incision on the right of the umbilicus and just inferior to it to incorporate this new found fascial defect into the repair. The fascial bridge between the supraumbilical and infraumbilical defects was incised with cautery. Retro rectus space was then developed with cautery circumferentially. Hemo stasis was achieved with cautery. Posterior sheath and peritoneum were then closed over small intestine with running 0-0 Vicryl sutures. Care was taken not to injure the small intestine. It is I used 8 x 12 cm Ventrio mesh and placed it into this retrorectus space. This was secured in place with 0-0 Nurolon trans fascial sutures. The anterior fascia was then closed over the mesh with a running 0-0Maxon suture. Local anesthetic was injected into the anterior fascia and subcutaneous fat. The incision was irrigated with normal saline. Subcutaneous fat was then reapproximated with interrupted 2-0 in 3-0 Vicryl sutures. The dermis was reapproximated with interrupted 3-0 Vicryl sutures. The skin was closed with a running 4-0 Monocryl stitch. Steri-Strips and sterile dressings were placed over the incision. ? The patient was then woken and transported to the recovery area in stable condition. ? The patient tolerated the procedure well. Findings: Previous mesh was found just superior to the umbilicus. Ethibond sutures from previous repair were seen and were removed. Patient had an additional fascial defect inferior to the umbilicus. All 3 fascial defects were connected into 1 common defect and this was repaired with Ventrio mesh. Implants: Ventrio mesh 8x 12 cm Anesthesia: GETA Surgeon: Faith Bullock MD Estimated blood loss (mL): 10 Condition: stable Disposition: PACU
--- NOTE | 2023-04-17 08:50 | W.PM.H&PU ---
History & Physical Update History & Physical Update H&P Reviewed and patient assessed: No changes noted
[2023-04-17] MEDS: SODIUM CHLORIDE 0.9 % (FLUSH) 10 ML SYRINGE IVF (08:56)
[2023-04-17] MEDS: LACTATED RINGERS 1000 ML 1,000 ML 100 ML IV (08:58)
[2023-04-17] MEDS: CEFAZOLIN 2 GM INJ IVP (09:12)
--- NOTE | 2023-04-17 09:31 | W.ANESCHARGE ---
Anesthesia Charges Start Date/Time Anesthesia Start Date: 04/17/23 Anesthesia Start Time: 09:09 Stop Date/Time Anesthesia Stop Date: 04/17/23 Anesthesia Stop Time: 11:09
[2023-04-17] MEDS: BUPIVACAINE 0.25% 30 ML 15 ML INJECTION (10:40)
[2023-04-17] MEDS: HYDROmorphone 0.5 mg/0.5 ml inj IVP ×3 (11:45→12:07)
[2023-04-17] MEDS: ONDANSETRON 2 MG/ML inj 4 MG IVP (13:32)
--- NOTE | 2023-04-17 13:43 | SUR.PHASEII ---
pt c/o dizziness and nausea. given zofran. also dips sats into upper 70's for short periods w/o o2. even with o2 still desats to mid 80's. unable to remove 02 successfully
--- NOTE | 2023-04-17 13:58 | SUR.PHASEII ---
spoke with dinah klein and Dr. Bullock about sending pt. tp floor vs going home due to low sats
--- NOTE | 2023-04-17 14:16 | SUR.PHASEII ---
Pt dc'd to [facility] due to low sats. will accompany him. Dr. Bullock aware
--- NOTE | 2023-04-17 14:49 | RESP.RT ---
Patient Home CPAP placed at bedside, machine, tubing, nasal pillows found clean and functioning. EtCO2 43 torr inline NC 2 Lpm, SaO2 97%, breathing regular/easy, rate 16/minute.
[2023-04-17] MEDS: HYDROCODONE-ACETAMIN 5-325 MG 1 TAB PO ×2 (15:17→21:13)
--- NOTE | 2023-04-17 16:24 | P.IMCN_ITS ---
Date of Consult Patient: [facility] Patient Consult date: 04/17/23 Requesting Physician: General Surgery ([place]) Primary Care Provider: Tulio Ortiz MD Consult Narrative Reason for consult: Apnea, hypopnea, hypoxia, h/o VANESSA Narrative: Chavo Russell is a 77 year old male BPPV, obstructive sleep apnea, type 2 diabetes mellitus, atherosclerotic heart disease, hypertriglyceridemia, and hypertension who underwent elective abdominal wall and Denisha umbilical hernia repair today by Dr. Bullock. Postoperatively he was noted to be breathing very slowly with some apnea. On the floor he has had some oxygen saturations mostly in the 90s, but occasionally 86-87% while sleeping even while using CPAP. He was able to give me a thorough history and reviewed his medications from memory without difficulty. His was also in the room and told me that she just heard from their son who lives with them. Their son was having chills and body aches today and did a home COVID test that just came back positive. Chavo denies any fevers, chills, body aches, sore throat, shortness of breath, cough, or illness recently. He had a chest x-ray on 03/09/2023 that showed hyperinflation and chronic interstitial changes with minimal basilar atelectasis and parenchymal scar. Review of Systems Status of ROS: Reports: 10 or more systems reviewed and unremarkable except as noted in History and below [facility] Medical History (Updated 04/17/23 @ 16:46 by Radha Turner MD) Abdominal wall hernia ?K43.9 - Ventral hernia without obstruction or gangrene (ICD-10) Diastolic dysfunction ?I51.89 - Other ill-defined heart diseases (ICD-10) MURPHY (dyspnea on exertion) ?R06.09 - Other forms of dyspnea (ICD-10) Pleural thickening ?J92.9 - Pleural plaque without asbestos (ICD-10) Anxiety ?F41.9 - Anxiety disorder, unspecified (ICD-10) Depression ?F32.A - Depression, unspecified (ICD-10) Vertigo ?R42 - Dizziness and giddiness (ICD-10) Umbilical hernia ?K42.9 - Umbilical hernia without obstruction or gangrene (ICD-10) Type 2 diabetes mellitus ?E11.9 - Type 2 diabetes mellitus without complications (ICD-10) Tubular adenoma ?D36.9 - Benign neoplasm, unspecified site (ICD-10) Recurrent inguinal hernia ?K40.91 - Unilateral inguinal hernia, without obstruction or gangrene, recurrent (ICD-10) Obstructive sleep apnea syndrome ?G47.33 - Obstructive sleep apnea (adult) (pediatric) (ICD-10) Hypertriglyceridemia ?E78.1 - Pure hyperglyceridemia (ICD-10) Hyperlipidemia ?E78.5 - Hyperlipidemia, unspecified (ICD-10) Gastroesophageal reflux ?K21.9 - Gastro-esophageal reflux disease without esophagitis (ICD-10) Exercise-induced asthma ?J45.990 - Exercise induced bronchospasm (ICD-10) Essential hypertension ?I10 - Essential (primary) hypertension (ICD-10) Coronary artery disease ?I25.10 - Atherosclerotic heart disease of [place] coronary artery without angina pectoris (ICD-10) Benign paroxysmal vertigo ?H81.10 - Benign paroxysmal vertigo, unspecified ear (ICD-10) Aortic root dilatation ?I77.810 - Thoracic aortic ectasia (ICD-10) History of tinnitus ?Z86.69 - Personal history of other diseases of the nervous system and sense organs (ICD-10) Surgical History H/O bilateral inguinal hernia repair ?Z98.890 - Other specified postprocedural states (ICD-10) ?Z87.19 - Personal history of other diseases of the digestive system (ICD-10) History of umbilical hernia repair ?Z98.890 - Other specified postprocedural states (ICD-10) ?Z87.19 - Personal history of other diseases of the digestive system (ICD-10) History of total knee replacement ?Z96.659 - Presence of unspecified artificial knee joint (ICD-10) History of sinus surgery ?Z98.890 - Other specified postprocedural states (ICD-10) History of right inguinal hernia repair ?Z98.890 - Other specified postprocedural states (ICD-10) ?Z87.19 - Personal history of other diseases of the digestive system (ICD-10) History of colonoscopy ?Z98.890 - Other specified postprocedural states (ICD-10) Social History (Updated 04/17/23 @ 16:37 by Radha Turner MD) Narrative: . His and son live in the home with him. He denies tobacco use. He smoked socially for 6 months when he was in late teens. He drinks about 1 alcoholic drink per month. Denies recreational drug use. What is your current living situation?: I presently have a place to live Problems where you live: no known problems In the past 12 months, utilities in danger of being shut off: no In past 12 months, lack of transportation kept you from medical appts, meetings, work, or getting things needed for daily living: no In the past 12 mos, have been you worried that your food would run out before you had money to buy more?: never true In the past 12 mos, the food you bought just didn't last and you didn't have money to buy more?: never true Smoking Status: Never smoker How often do you have a drink containing alcohol: monthly or less AUDIT-C Alcohol total score: 1 How often does anyone, including family, friends and others, physically hurt you : never How often does anyone, including family, friends and others, insult or talk down to you: never How often does anyone, including family, friends and others, threaten you with harm: never How often does anyone, including family, friends and others, scream or curse at you: never Little interest or pleasure in doing things: not at all Feeling down, depressed, or hopeless: not at all Meds Home Medications and Allergies Home Medications Medication Instructions Recorded Confirmed Type Diabetic Test Strips 11/24/21 03/29/23 History aspirin 81 mg tablet,delayed 81 mg PO DAILY 11/24/21 04/17/23 History release multivitamin (Multiple Vitamins 1 tab PO QDAY 11/24/21 04/17/23 History tablet) omega-3 fatty acids-fish oil 360 1 cap PO QDAY 11/24/21 04/17/23 History mg-1,200 mg capsule dulaglutide 1.5 mg/0.5 mL 1.5 mg subcut 01/12/23 03/29/23 History subcutaneous pen injector ([facility]) flash glucose scanning reader #1 ea 01/12/23 03/29/23 History (FreeStyle Stormy 2 [place]) flash glucose sensor (FreeStyle #1 ea 01/12/23 03/29/23 History Stormy 2 Sensor kit) atorvastatin 20 mg tablet 20 mg PO HS 04/17/23 04/17/23 History insulin glargine-yfgn 100 unit/mL 60 - 70 unit subcut HS 04/17/23 04/17/23 History (3 mL) subcutaneous pen omeprazole 40 mg capsule,delayed 40 mg PO HS 04/17/23 04/17/23 History release Home Medication Comments: The patient reports that there is a national shortage of Trulicity and he has been unable to get it from any pharmacy for the last 2 weeks. As result he has increased his usual insulin doses. He currently takes insulin aspart 31 units with breakfast, 35 units with lunch, and 27 units with supper. He uses a 2 increment insulin sliding scale. He generally takes 60 units of long-acting insulin at night. Allergies Allergy/AdvReac Type Severity Reaction Status Date / Time house dust Allergy Unknown Verified 04/17/23 08:22 cat dander Allergy Verified 04/17/23 08:22 Exam Narrative: Exam Narrative: General: No acute distress. Awake alert oriented x3. Central obesity with protuberant abdomen and thick neck. HEENT: Normocephalic atraumatic, pupils equally round and reactive to light and accommodation. Oropharynx clear. Mucous membranes are moist. No cervical lymphadenopathy, thyromegaly or carotid bruits. No JVD. Cardiovascular: Regular rate and rhythm. No murmurs, gallops, or rubs. Chest: No increased work of breathing. Clear to auscultation bilaterally. No crackles or wheezes. Abdomen: Protuberant abdomen. Abdominal binder in place. Bandages are clean, dry, and intact. Extremities: No edema, no cyanosis or clubbing. Skin: No jaundice, no pallor, no rashes. Neuro: Grossly intact. No focal deficits. Const: Vital Signs, click to edit/add: Vital Signs - 24 hr 04/17/23 08:39 04/17/23 11:05 04/17/23 11:10 Temperature 97.5 F L 98.1 F Pulse Rate 63 61 64 Pulse Rate [Right Pulse Oximeter] Respiratory Rate 20 18 17 Blood Pressure 155/86 H 142/78 H 139/82 Blood Pressure [Ri ght Arm] Pulse Oximetry 96 92 93 Oxygen Delivery Me thod Room Air OxyMask OxyMask Oxygen Flow Rate 10 10 04/17/23 11:15 04/17/23 11:20 04/17/23 11:25 Temperature 98.1 F Pulse Rate 65 66 65 Pulse Rate [Right Pulse Oximeter] Respiratory Rate 16 16 14 Blood Pressure 139/86 144/107 H 138/86 Blood Pressure [Ri ght Arm] Pulse Oximetry 93 95 95 Oxygen Delivery Me thod OxyMask OxyMask OxyMask Oxygen Flow Rate 10 8 8 04/17/23 11:30 04/17/23 11:35 04/17/23 11:40 Temperature 97.5 F L Pulse Rate 60 60 62 Pulse Rate [Right Pulse Oximeter] Respiratory Rate 14 17 13 Blood Pressure 144/82 H 147/85 H 153/93 H Blood Pressure [Ri ght Arm] Pulse Oximetry 95 95 96 Oxygen Delivery Me thod OxyMask OxyMask Nasal Cannula Oxygen Flow Rate 6 6 3 04/17/23 11:45 04/17/23 11:50 04/17/23 11:55 Temperature 97.0 F L Pulse Rate 58 L 59 L 59 L Pulse Rate [Right Pulse Oximeter] Respiratory Rate 13 13 14 Blood Pressure 141/85 H 150/87 H 140/82 H Blood Pressure [Ri ght Arm] Pulse Oximetry 96 96 96 Oxygen Delivery Me thod Nasal Cannula Nasal Cannula Nasal Cannula Oxygen Flow Rate 3 3 3 04/17/23 12:00 04/17/23 12:05 04/17/23 12:10 Temperature 97.0 F L 97.0 F L Pulse Rate 63 62 69 Pulse Rate [Right Pulse Oximeter] Respiratory Rate 16 14 15 Blood Pressure 148/82 H 147/80 H 135/78 Blood Pressure [Ri ght Arm] Pulse Oximetry 97 97 96 Oxygen Delivery Me thod Nasal Cannula Nasal Cannula Nasal Cannula Oxygen Flow Rate 3 2 2 04/17/23 12:20 04/17/23 12:35 04/17/23 12:50 Temperature 97.0 F L Pulse Rate 58 L 53 L 54 L Pulse Rate [Right Pulse Oximeter] Respiratory Rate 20 20 20 Blood Pressure 152/85 H 143/93 H 153/89 H Blood Pressure [Ri ght Arm] Pulse Oximetry 94 94 95 Oxygen Delivery Me thod Nasal Cannula Nasal Cannula Nasal Cannula Oxygen Flow Rate 2 2 2 04/17/23 13:05 04/17/23 13:21 04/17/23 13:35 Temperature 97.5 F L Pulse Rate 58 L 56 L 53 L Pulse Rate [Right Pulse Oximeter] Respiratory Rate 20 20 20 Blood Pressure 158/89 H 165/84 H 145/85 H Blood Pressure [Ri ght Arm] Pulse Oximetry 95 95 96 Oxygen Delivery Me thod Nasal Cannula Nasal Cannula Nasal Cannula Oxygen Flow Rate 2 2 2 04/17/23 13:50 04/17/23 14:09 04/17/23 14:43 Temperature 97.6 F Pulse Rate 54 L 49 L Pulse Rate [Right Pulse Oximeter] 60 Respiratory Rate 20 20 18 Blood Pressure 147/94 H 153/95 H Blood Pressure [Ri ght Arm] 164/92 H Pulse Oximetry 94 96 Oxygen Delivery Me thod Nasal Cannula Nasal Cannula Nasal Cannula Oxygen Flow Rate 2 2 1 04/17/23 14:59 04/17/23 15:01 04/17/23 16:02 Temperature 97.5 F L 97.8 F Pulse Rate Pulse Rate [Right Pulse Oximeter] 47 L 76 Respiratory Rate 16 18 Blood Pressure Blood Pressure [Ri ght Arm] 163/89 H 154/96 H Pulse Oximetry 97 96 98 Oxygen Delivery Me thod Nasal Cannula Room Air Nasal Can nula Oxygen Flow Rate 1 Assessment and Plan Assessment and plan (1) Postoperative hypoxia: Problem comment: Suspect this is multifactorial, mostly secondary to obstructive sleep apnea, and I suspect there is obesity hypoventilation syndrome as well. Also he just had an abdominal surgery and is wearing an abdominal binder which is likely contributing to the situation. He has a very remote and light smoking history, but did have hyperinflation on x-ray done a few months ago, but no actual diagnosis of COPD. He has been vaccinated for COVID with all but the most recent vaccination booster. His son tested positive for COVID today. Will obtain a triple swab for COVID/influenza/RSV. I have spoken with respiratory therapy and we will monitor end-tidal CO2. Additionally, although his CPAP does not allow for bleed through oxygen, we can place a face mask over his nasal CPAP tubing for oxygen supplementation if needed. I think he will likely just need to be here for observation tonight. Monitor on continuous pulse oximetry. He will likely be able to go home tomorrow. I do not think he needs further imaging or workup. Status: Acute (2) Obstructive sleep apnea syndrome: Status: Chronic (3) Body mass index (BMI) of 30.0 to 39.9: Status: Chronic (4) Type 2 diabetes mellitus: Problem comment: Will continue his home diabetic regimen with the exception of Trulicity since that is unavailable. I will also order a medium insulin sliding scale. Status: Chronic (5) Coronary artery disease: Problem comment: Stable, asymptomatic, continue his usual home medications Status: Chronic (6) Essential hypertension: Problem comment: Continue his usual home medications Status: Chronic (7) Exercise-induced asthma: Problem comment: No evidence of current exacerbation Status: Chronic (8) Diastolic dysfunction: Problem comment: Stable, not currently in exacerbation Status: Chronic
[2023-04-17] MEDS: LACTATED RINGERS 1000 ML 1,000 ML 75 ML IV (16:48)
[2023-04-17] MEDS: INSULIN ASPART 100 UNIT/ML 27 UNIT SUBCUT (17:31)
[2023-04-17] MEDS: INSULIN ASPART 100 UNIT/ML SUBCUT (17:31)
[2023-04-17 17:43] LABS: PCR FLU A Negative PCR FLU A (Negative); PCR FLU B Negative PCR FLU B (Negative); PCR RSV Negative PCR RSV (Negative); SARS PCR* Negative SARS-CoV-2 (Negative)
--- NOTE | 2023-04-17 18:08 | PC.NURSE ---
Addendum entered by Sabiha Hyatt RN 04/17/23 18:14: Patient dinner blood sugar 174. Original Note: End of Shift: Patient pleasant and cooperative. Patient vitally stable, lungs clear, BS WNL, IV running LR at 75. Patient on 1 L of oxygen NS with sats in low to mid 90's, patient desats with sleeping. Patient reports abdominal pain at most 8/10, 2 norco tabs given once. Abdominal incision C/D/I, ice pack applied to location. Patient SBA to toilet urinating 400. Patient tolerating regular diet.
[2023-04-17] MEDS: carvediloL 6.25 MG TABLET 12.5 MG PO (21:09)
[2023-04-17] MEDS: ATORVASTATIN 10 MG TABLET 20 MG PO (21:09)
[2023-04-18 03:00] VITALS: BP 128/65; PULSE 71; RESP 18; TEMP 36.8; O2SAT 92
[2023-04-18] MEDS: HYDROCODONE-ACETAMIN 5-325 MG 1 TAB PO ×2 (03:10→08:54)
[2023-04-18] MEDS: OMEPRAZOLE 20 MG CAPSULE DR 40 MG PO (06:29)
--- NOTE | 2023-04-18 06:56 | PC.NURSE ---
End of shift [id number]: Assumed care of patient at 2300. Pt is A&O, afebrile and VSS overnight. SBA to BR. He maintained O2 > 90% on RA overnight and spot checks were in high 90s% while on home CPAP. Midline abdominal incision covered by surgical dressing C/D/I and abdominal binder. Pt c/o pain at 3/10 while at rest and 7/10 with activity. Reports his abdomen feels tight and sore. Demonstrates proper splinting technique when coughing or trying for a BM. Denies having any pain, nausea or dizziness overnight. HS blood sugar: 188; Levemir 60 units given. PRN [place] utilized x2 doses for pain control, last dose given at 0310. PIV in right hand SL and C/D/I. Plan to discharge home today. ?
--- NOTE | 2023-04-18 07:33 | PM.DS1 ---
DS: Providers Provider Date Seen: 04/18/23 Primary care physician: Tulio Ortiz MD Attending Physician on discharge: Faith Bullock MD DS: Diagnosis Discharge Diagnosis (1) Postoperative hypoxia: Status: Acute DS: Summary Hospital Course Hospital Course: Patient underwent an open ventral hernia repair with mesh. He was admitted for observation overnight due to hypoventilation and hypoxia. Patient improved overnight and was off oxygen. His pain was controlled with p.o. medications. He was tolerating regular diet and passing gas. Time Spent with Patient Time attestation: Total time spent providing and/or coordinating discharge services: Exam Narrative: Exam Narrative: Abdomen is soft, not distended, minimally tender to palpation near surgical incision. The surgical incision is clean and dry and covered with dressing. Const: Vital Signs, click to edit/add: Vital Signs - 24 hr 04/17/23 08:39 04/17/23 11:05 04/17/23 11:10 Temperature 97.5 F L 98.1 F Pulse Rate 63 61 64 Pulse Rate [Right Pulse Oximeter] Respiratory Rate 20 18 17 Blood Pressure 155/86 H 142/78 H 139/82 Blood Pressure [Ri ght Arm] Pulse Oximetry 96 92 93 Oxygen Delivery Me thod Room Air OxyMask OxyMask Oxygen Flow Rate 10 10 04/17/23 11:15 04/17/23 11:20 04/17/23 11:25 Temperature 98.1 F Pulse Rate 65 66 65 Pulse Rate [Right Pulse Oximeter] Respiratory Rate 16 16 14 Blood Pressure 139/86 144/107 H 138/86 Blood Pressure [Ri ght Arm] Pulse Oximetry 93 95 95 Oxygen Delivery Me thod OxyMask OxyMask OxyMask Oxygen Flow Rate 10 8 8 04/17/23 11:30 04/17/23 11:35 04/17/23 11:40 Temperature 97.5 F L Pulse Rate 60 60 62 Pulse Rate [Right Pulse Oximeter] Respiratory Rate 14 17 13 Blood Pressure 144/82 H 147/85 H 153/93 H Blood Pressure [Ri ght Arm] Pulse Oximetry 95 95 96 Oxygen Delivery Me thod OxyMask OxyMask Nasal Cannula Oxygen Flow Rate 6 6 3 04/17/23 11:45 04/17/23 11:50 04/17/23 11:55 Temperature 97.0 F L Pulse Rate 58 L 59 L 59 L Pulse Rate [Right Pulse Oximeter] Respiratory Rate 13 13 14 Blood Pressure 141/85 H 150/87 H 140/82 H Blood Pressure [Ri ght Arm] Pulse Oximetry 96 96 96 Oxygen Delivery Me thod Nasal Cannula Nasal Cannula Nasal Cannula Oxygen Flow Rate 3 3 3 04/17/23 12:00 04/17/23 12:05 04/17/23 12:10 Temperature 97.0 F L 97.0 F L Pulse Rate 63 62 69 Pulse Rate [Right Pulse Oximeter] Respiratory Rate 16 14 15 Blood Pressure 148/82 H 147/80 H 135/78 Blood Pressure [Ri ght Arm] Pulse Oximetry 97 97 96 Oxygen Delivery Me thod Nasal Cannula Nasal Cannula Nasal Cannula Oxygen Flow Rate 3 2 2 04/17/23 12:20 04/17/23 12:35 04/17/23 12:50 Temperature 97.0 F L Pulse Rate 58 L 53 L 54 L Pulse Rate [Right Pulse Oximeter] Respiratory Rate 20 20 20 Blood Pressure 152/85 H 143/93 H 153/89 H Blood Pressure [Ri ght Arm] Pulse Oximetry 94 94 95 Oxygen Delivery Me thod Nasal Cannula Nasal Cannula Nasal Cannula Oxygen Flow Rate 2 2 2 04/17/23 13:05 04/17/23 13:21 04/17/23 13:35 Temperature 97.5 F L Pulse Rate 58 L 56 L 53 L Pulse Rate [Right Pulse Oximeter] Respiratory Rate 20 20 20 Blood Pressure 158/89 H 165/84 H 145/85 H Blood Pressure [Ri ght Arm] Pulse Oximetry 95 95 96 Oxygen Delivery Me thod Nasal Cannula Nasal Cannula Nasal Cannula Oxygen Flow Rate 2 2 2 04/17/23 13:50 04/17/23 14:09 04/17/23 14:43 Temperature 97.6 F Pulse Rate 54 L 49 L Pulse Rate [Right Pulse Oximeter] 60 Respiratory Rate 20 20 18 Blood Pressure 147/94 H 153/95 H Blood Pressure [Ri ght Arm] 164/92 H Pulse Oximetry 94 96 Oxygen Delivery Me thod Nasal Cannula Nasal Cannula Nasal Cannula Oxygen Flow Rate 2 2 1 04/17/23 14:59 04/17/23 15:01 04/17/23 16:02 Temperature 97.5 F L 97.8 F Pulse Rate Pulse Rate [Right Pulse Oximeter] 47 L 76 Respiratory Rate 16 18 Blood Pressure Blood Pressure [Ri ght Arm] 163/89 H 154/96 H Pulse Oximetry 97 96 98 Oxygen Delivery Me thod Nasal Cannula Room Air Nasal Can nula Oxygen Flow Rate 1 04/17/23 17:00 04/17/23 19:00 04/17/23 23:00 Temperature 97.9 F 98.0 F Pulse Rate Pulse Rate [Right Pulse Oximeter] 73 66 62 Respiratory Rate 14 18 20 Blood Pressure Blood Pressure [Ri ght Arm] 154/98 H 146/88 H Pulse Oximetry 94 94 Oxygen Delivery Me thod Nasal Cannula Room Air Oxygen Flow Rate 1 04/17/23 23:00 04/18/23 03:00 Temperature 98.2 F 98.3 F Pulse Rate Pulse Rate [Right Pulse Oximeter] 62 71 Respiratory Rate 20 18 Blood Pressure Blood Pressure [Ri ght Arm] 131/73 128/65 Pulse Oximetry 93 92 Oxygen Delivery Me thod CPAP CPAP Oxygen Flow Rate DS: Data Data Completed and Pending Labs on day of discharge: Labs from last 24 hours 04/17/23 16:47 SARS-CoV-2 (PCR) Negative SARS-CoV-2 Influenza Type A (PCR) Negative PCR FLU A Influenza Type B (PCR) Negative PCR FLU B RSV (PCR) Negative PCR RSV Discharge Plan Discharge Disposition: Home, Self-Care Discharging Surgeon: Faith Bullock Follow-Up Appointment: [facility], 05/03/23 @ 11:00, with Dr. Bullock Prescriptions: New hydrocodone-acetaminophen 5-325 mg tablet 1 tab PO Q6H PRN (Reason: pain) Qty: 20 0RF Continued multivitamin [Multiple Vitamins] Tablet 1 tab PO QDAY aspirin 81 mg tablet,delayed release (DR/EC) 81 mg PO DAILY (DME) Diabetic Test Strips Misc See Rx Instructions .Route Rx Instructions: As directed omega-3 fatty acids-fish oil 360-1,200 mg capsule 1 cap PO QDAY Trulicity 1.5 mg/0.5 mL pen injector 1.5 mg subcut Hold Instructions: not available at pharmacy until May 01 (DME) FreeStyle Stormy 2 Sensor Kit See Rx Instructions .ROUTE .MEDSUPPLY Qty: 1 Patient Comments: [NO ORIGINAL SIG] Rx Instructions: As directed (DME) FreeStyle Stormy 2 [place] Misc See Rx Instructions .ROUTE DIRECTED Qty: 1 Rx Instructions: As directed insulin aspart U-100 100 unit/mL (3 mL) insulin pen 15 - 20 unit subcut TIDWMEAL Qty: 15 12RF albuterol sulfate 90 mcg/actuation HFA aerosol inhaler 2 puff inhalation Q4-6H PRN (Reason: shortness of breath or wheezing) Qty: 8.5 3RF carvedilol 12.5 mg tablet 12.5 mg PO BID Qty: 180 3RF chlorthalidone 25 mg tablet 25 mg PO DAILY Qty: 90 3RF fenofibrate nanocrystallized 145 mg tablet 145 mg PO DAILY Qty: 90 3RF lisinopril 40 mg tablet 40 mg PO DAILY Qty: 90 3RF atorvastatin 20 mg tablet 20 mg PO HS omeprazole 40 mg capsule,delayed release(DR/EC) 40 mg PO HS insulin glargine-yfgn 100 unit/mL (3 mL) insulin pen 60 - 70 unit subcut HS (DME) pen needle, diabetic [BD Ultra-Fine Mini Pen Needle] 31 gauge x 3/16 needle See Rx Instructions .Route Qty: 100 10RF Rx Instructions: Patient to use 4 times a day clobetasol 0.05 % cream 1 applic topical BID Qty: 30 0RF Rx Instructions: APPLY SPARINGLY TO AFFECTED AREAS ON TRUNK AND EXTREMITIES TWICE DAILY FOR 2 WEEKS AT A TIME THEN STOP FOR 1 WEEEK Activity Level: No strenuous activity Activity Detail: Okay to shower in 1-2 days after the surgical dressing comes off. Avoid swimming or bath for 2 weeks. Wear abdominal binder on all the time for 2 weeks. Take laxative such as MiraLax daily for the first 7 days after surgery to avoid constipation. Discharge Diet: Regular Patient Instructions: Surgical Site Infections (DC), Deep Sedation (DC), Ventral Hernia Repair (DC), Post-Operative Instructions: Hernia Repair Forms: Work/School Release Follow-up: Faith Bullock MD [Staff Physician] - Discharge Orders: Discharge Order (Routine); Ordered 04/18/23 Ordered By: Faith Bullock
[2023-04-18 07:34] VITALS: BP 122/77; PULSE 64; RESP 18; TEMP 36.8; O2SAT 92
[2023-04-18] MEDS: INSULIN ASPART 100 UNIT/ML 31 UNIT SUBCUT (07:48)
[2023-04-18] MEDS: carvediloL 6.25 MG TABLET 12.5 MG PO (08:53)
[2023-04-18] MEDS: MULTIVITAMIN/MINERALS 1 TABLET 1 TAB PO (08:53)
[2023-04-18] MEDS: CHLORTHALIDONE 25 MG TABLET PO (08:53)
[2023-04-18] MEDS: FENOFIBRATE 145 MG TABLET PO (08:53)
[2023-04-18] MEDS: lisinopriL 20 MG TABLET 40 MG PO (08:54)
--- NOTE | 2023-04-18 09:50 | PC.NURSE ---
Discharge: Patient pleasant and cooperative. Patient vitally stable, lungs clear, BS WNL, IV removed, catheter intact. Patient on RA with sats in low 90s. Patient SBA, rates pain 3/10. [place] 2 tabs given once. Patients abdominal incision dressing C/D/I, abdominal binder applied. Patient decline active ice today. Patient tolerating regular diet and urinating. Patient signed belongings sheet and discharge form. Patient had no further question regarding discharge information. Patient left the floor by wheelchair to home at 0948.
== END 2023-04-18 09:48 | disposition home or self-care (01) ==
LOC: OR 08:50 → MEDSURG 14:38
PROVIDERS: Family Medicine; PCP Family Medicine; Visit Provider Surgery
PROC: (CPT 49592; principal; 2023-04-17 09:15)
DX: K43.6 Other and unspecified ventral hernia with obstruction, without gangrene (principal); R06.89 Other abnormalities of breathing; R09.02 Hypoxemia; E11.9 Type 2 diabetes mellitus without complications; G47.33 Obstructive sleep apnea (adult) (pediatric); I11.0 Hypertensive heart disease with heart failure; I50.30 Unspecified diastolic (congestive) heart failure
CPT/HCPCS: 49592; 00750; 82962; 87631; 94761; A4467; A9153; A9270; C1781; J0330; J0665; J0690; J1100; J1170; J2405; J2704; J3010; J7120

== ENCOUNTER 2023-09-22 14:09 | Emergency (ER) | payer BC, SELFPAY ==
[2023-09-22] VITALS (7 sets, daily range): BP systolic 141–143; BP diastolic 73–87; PULSE 68–92; RESP 18; TEMP 37.1; O2SAT 95–98; BMI 34.0
--- NOTE | 2023-09-22 16:38 | ED_ITS ---
HPI - Male Genitourinary General Time Seen by Provider: 16:38 Date Seen: 09/22/23 Chief complaint: Urogenital Problems, Male Stated complaint: sudden sharp pain in left testicle Time Seen by Provider: 09/22/23 16:38 Source: patient and RN notes reviewed Mode of arrival: ambulatory Limitations: no limitations History of Present Illness HPI Narrative: This 78-year-old male is coming in with sudden onset left testicular pain that started while he was eating lunch today. There is no trauma. No fevers or chills. No dysuria or hematuria, is able to urinate. Pain was so bad initially was unable to sit down. Does radiate a little up into the groin in abdomen. There is no abdominal pain at this time. No nausea or vomiting. He has no history of kidney stones. Maybe about 20 years ago remembers 1 episode of testicular pain which resolved on his own, does not remember that there is anything concerning or specific with it. He talked to his doctor who told him to be evaluated in the ER. Pain is still present. He did drive himself here but states his son can come pick him up if need be. Related Data Home Medications ?Medication ?Instructions ?Recorded ?Confirmed Diabetic Test Strips 11/24/21 06/06/23 aspirin 81 mg tablet,delayed 81 mg PO DAILY 11/24/21 06/06/23 release multivitamin (Multiple Vitamins 1 tab PO QDAY 11/24/21 06/06/23 tablet) omega-3 fatty acids-fish oil 360 1 cap PO QDAY 11/24/21 06/06/23 mg-1,200 mg capsule flash glucose scanning reader #1 ea 01/12/23 06/06/23 (FreeStyle Stormy 2 [place]) flash glucose sensor (FreeStyle #1 ea 01/12/23 06/06/23 Stormy 2 Sensor kit) atorvastatin 20 mg tablet 20 mg PO HS 04/17/23 06/06/23 insulin glargine-yfgn 100 unit/mL 60 - 70 unit subcut HS 04/17/23 06/06/23 (3 mL) subcutaneous pen omeprazole 40 mg capsule,delayed 40 mg PO HS 04/17/23 06/06/23 release tirzepatide 2.5 mg/0.5 mL mg subcut 05/03/23 06/06/23 subcutaneous pen injector (Trang) Previous Rx's ?Medication ?Instructions ?Recorded albuterol sulfate 90 mcg/actuation 2 puff inhalation Q4-6H PRN 01/12/23 aerosol inhaler shortness of breath or wheezing #8.5 grams carvedilol 12.5 mg tablet 12.5 mg PO BID #180 tabs 01/12/23 chlorthalidone 25 mg tablet 25 mg PO DAILY #90 tabs 01/12/23 fenofibrate nanocrystallized 145 145 mg PO DAILY #90 tabs 01/12/23 mg tablet lisinopril 40 mg tablet 40 mg PO DAILY #90 tabs 01/12/23 azithromycin 250 mg tablet See Rx Instructions PO .COMPLEX #6 06/06/23 (Zithromax Z-Adarsh) tabs pen needle, diabetic 31 gauge x #100 ea 07/27/23 5 pen needle, diabetic 31 gauge x #100 ea 07/28/2305/26 (BD Ultra-Fine Mini Pen Needle) Aspart Flex Pen 20 units IM TID #1,800 ea 08/04/23 insulin aspart U-100 100 unit/mL 20 unit (0.2 mL) subcut TIDWMEAL 08/04/23 (3 mL) subcutaneous pen #30 mL clobetasol 0.05 % topical cream 1 applic topical BID #30 grams 08/25/23 Allergies Allergy/AdvReac Type Severity Reaction Status Date / Time house dust Allergy Unknown Verified 06/06/23 09:41 cat dander Allergy Verified 06/06/23 09:41 Review of Systems Status of ROS: Reports: 6 or more systems reviewed and unremarkable except as noted in History and below [facility] Medical History Abdominal wall hernia ?K43.9 - Ventral hernia without obstruction or gangrene (ICD-10) Diastolic dysfunction ?I51.89 - Other ill-defined heart diseases (ICD-10) MURPHY (dyspnea on exertion) ?R06.09 - Other forms of dyspnea (ICD-10) Pleural thickening ?J92.9 - Pleural plaque without asbestos (ICD-10) Anxiety ?F41.9 - Anxiety disorder, unspecified (ICD-10) Depression ?F32.A - Depression, unspecified (ICD-10) Vertigo ?R42 - Dizziness and giddiness (ICD-10) Umbilical hernia ?K42.9 - Umbilical hernia without obstruction or gangrene (ICD-10) Type 2 diabetes mellitus ?E11.9 - Type 2 diabetes mellitus without complications (ICD-10) Tubular adenoma ?D36.9 - Benign neoplasm, unspecified site (ICD-10) Recurrent inguinal hernia ?K40.91 - Unilateral inguinal hernia, without obstruction or gangrene, recurrent (ICD-10) Obstructive sleep apnea syndrome ?G47.33 - Obstructive sleep apnea (adult) (pediatric) (ICD-10) Hypertriglyceridemia ?E78.1 - Pure hyperglyceridemia (ICD-10) Hyperlipidemia ?E78.5 - Hyperlipidemia, unspecified (ICD-10) Gastroesophageal reflux ?K21.9 - Gastro-esophageal reflux disease without esophagitis (ICD-10) Exercise-induced asthma ?J45.990 - Exercise induced bronchospasm (ICD-10) Essential hypertension ?I10 - Essential (primary) hypertension (ICD-10) Coronary artery disease ?I25.10 - Atherosclerotic heart disease of [place] coronary artery without angina pectoris (ICD-10) Benign paroxysmal vertigo ?H81.10 - Benign paroxysmal vertigo, unspecified ear (ICD-10) Aortic root dilatation ?I77.810 - Thoracic aortic ectasia (ICD-10) History of tinnitus ?Z86.69 - Personal history of other diseases of the nervous system and sense organs (ICD-10) Surgical History History of ventral hernia repair ?Z98.890 - Other specified postprocedural states (ICD-10) ?Z87.19 - Personal history of other diseases of the digestive system (ICD-10) H/O bilateral inguinal hernia repair ?Z98.890 - Other specified postprocedural states (ICD-10) ?Z87.19 - Personal history of other diseases of the digestive system (ICD-10) History of umbilical hernia repair ?Z98.890 - Other specified postprocedural states (ICD-10) ?Z87.19 - Personal history of other diseases of the digestive system (ICD-10) History of total knee replacement ?Z96.659 - Presence of unspecified artificial knee joint (ICD-10) History of sinus surgery ?Z98.890 - Other specified postprocedural states (ICD-10) History of right inguinal hernia repair ?Z98.890 - Other specified postprocedural states (ICD-10) ?Z87.19 - Personal history of other diseases of the digestive system (ICD-10) History of colonoscopy ?Z98.890 - Other specified postprocedural states (ICD-10) Social History Narrative: . His and son live in the home with him. He denies tobacco use. He smoked socially for 6 months when he was in late teens. He drinks about 1 alcoholic drink per month. Denies recreational drug use. What is your current living situation?: I presently have a place to live Problems where you live: no known problems In the past 12 months, utilities in danger of being shut off: no In past 12 months, lack of transportation kept you from medical appts, meetings, work, or getting things needed for daily living: no In the past 12 mos, have been you worried that your food would run out before you had money to buy more?: never true In the past 12 mos, the food you bought just didn't last and you didn't have money to buy more?: never true Smoking Status: Never smoker How often do you have a drink containing alcohol: monthly or less AUDIT-C Alcohol total score: 1 How often does anyone, including family, friends and others, physically hurt you : never How often does anyone, including family, friends and others, insult or talk down to you: never How often does anyone, including family, friends and others, threaten you with harm: never How often does anyone, including family, friends and others, scream or curse at you: never Little interest or pleasure in doing things: not at all Feeling down, depressed, or hopeless: not at all Exam Const: Vital Signs, click to edit/add: Vital Signs - 24 hr 09/22/23 14:29 09/22/23 17:11 09/22/23 19:25 Temperature 98.8 F Pulse Rate Pulse Rate [Pulse Oximeter] 92 Respiratory Rate 18 Blood Pressure 141/87 H Blood Pressure [Ri ght Upper Arm] 143/73 H Pulse Oximetry 97 95 Oxygen Delivery Me thod Room Air 09/22/23 19:27 09/22/23 19:30 Temperature Pulse Rate 71 69 Pulse Rate [Pulse Oximeter] Respiratory Rate Blood Pressure Blood Pressure [Ri ght Upper Arm] Pulse Oximetry 95 98 Oxygen Delivery Nm thod Patient is a 78-year-old male that is alert, interactive, no apparent distress. Sclera clear, conjugate gaze. Face atraumatic, able to speak in complete sentences. Lungs are clear, good air entry, no wheezing or crackles. CV regular rate and rhythm, no murmur, normal S1-S2, no S3-S4. Abdomen is mildly obese but soft, nontender, no rebound or guarding, no organomegaly. He has no CVA tenderness on the left side. There is no palpable groin mass or tenderness. Normal circumcised penis. Left testicle appears normal, no overlying swelling or erythema seen but he is very definitely tender. Does seem to be some fluid, difficulty evaluating this testicle due to his pain. Right testicle is nontender, no masses. Documenting provider has reviewed patient's vital signs: yes Course Course ED Course: Patient I discussed giving him some pain management prior to having imaging with ultrasound, he agrees he is going to need something. We will establish an IV, will be on pulse oximetry, will give IV morphine and Zofran. He will need a deliver driver of discharge. Will be obtaining a scrotal ultrasound to rule out acute pathology. Also get baseline labs including a urinalysis. With sudden onset pain, testicular torsion certainly is a consideration. Albeit at 78 we are not likely worried about ongoing fertility, this is still certainly urologic emergency, thus, ultrasound will certainly be done. Reevaluation(s) Time of Reevaluation #1: 19:30 Reevaluation #1: Provided patient a copy with his ultrasound report. There was a question of a segment of thrombus in a left varicocele. I reviewed with the patient that I have clinically never come across this. Did attempt to do some reading and there is not a consensus in the literature nor much regarding this condition. We are attempting to page Urology, hopefully will hear back. He states right now the pain is quite improved but he is resting and lying there. Morphine has significantly helped him. He does note when he did get up to go to the bathroom that he did have increased pain. He has never been diagnosed with a blood clot anywhere else. He is on an 81 mg aspirin daily. Patient's creatinine was 1.6 today, negates the ability to use NSAIDs beyond aspirin with him. Consultations Consultation #1: Did speak with Dr. Gallardo from [facility] [place]. He technically should not have been paged to cover this phone call but he graciously did so. They do not do blood thinners. They work up patient is as indicated. Patient's that are smokers can have increased risk of Uro epithelial cancers. This patient has never been a smoker, there is no concerning change on his urinalysis. This patient is to be treated with pain management and some NSAIDs, scrotal support. We discussed if he is not improving, he may need urology follow-up. Time: 20:11 Vital Signs Vital signs: Initial Vital Signs Temperature 98.8 F 09/22/23 14:29 Temperature Source Temporal Artery Scan 09/22/23 14:29 Pulse Rate 92 09/22/23 14:29 Respiratory Rate 18 09/22/23 14:29 Blood Pressure 143/73 H 09/22/23 14:29 Blood Pressure Mean 96 09/22/23 14:29 Pulse Oximetry 97 09/22/23 14:29 Oxygen Delivery Method Room Air 09/22/23 14:29 Vital Signs Temperature 98.8 F 09/22/23 14:29 Pulse Rate 92 09/22/23 14:29 Respiratory Rate 18 09/22/23 14:29 Blood Pressure 143/73 H 09/22/23 14:29 Pulse Oximetry 97 09/22/23 14:29 Oxygen Delivery Method Room Air 09/22/23 14:29 Temperature 98.8 F 09/22/23 14:29 Pulse Rate 69 09/22/23 19:30 Respiratory Rate 18 09/22/23 14:29 Blood Pressure 141/87 H 09/22/23 19:25 Pulse Oximetry 98 09/22/23 19:30 Oxygen Delivery Method Room Air 09/22/23 14:29 Medications Administered Medications: Discontinued Medications Generic Name Dose Route Start Last Admin Trade Name Freq PRN Reason Stop Dose Admin Morphine Sulfate 4 mg 09/22/23 16:43 09/22/23 17:08 Morphine 4 Mg/Ml Inj IVP 09/22/23 16:44 4 mg ONCE ONE Administration Ondansetron HCl 4 mg 09/22/23 16:43 09/22/23 17:08 Ondansetron 2 Mg/Ml Inj IVP 09/22/23 16:44 4 mg ONCE ONE Administration MDM - Male Genitourinary Lab Data Attestation: I reviewed the patient's lab results. Labs: Lab Results 09/22/23 09/22/23 Range/Units 16:51 16:55 WBC 6.51 (4.50-11.00) K/uL RBC 4.36 (4.30-5.90) m/uL Hgb 13.7 (13.5-17.5) gm/dL Hct 41.7 (37.0-53.0) % MCV 96 (80-100) fL MCH 31 (26-34) pg MCHC 33 (32-36) gm/dL RDW Coeff of Rhett 14.5 (11.5-15.5) % Plt Count 184 (140-440) K/uL Neut % (Auto) 65.8 (42.0-72.0) % Lymph % (Auto) 17.8 L (20-44) % [place] % (Auto) 9.2 (0.0-11.0) % Eos % (Auto) 5.1 (0.0-7.0) % Baso % (Auto) 0.6 (0.0-3.0) % Neut # (Auto) 4.28 (1.7-7.0) K/uL Lymph # (Auto) 1.20 (0.90-2.90) K/uL [place] # (Auto) 0.60 (0.00-0.90) K/UL Eos # (Auto) 0.33 (0.00-0.50) K/uL Baso # (Auto) 0.04 (0.00-0.30) K/uL Abs Immat Gran (auto) 0.10 (0.00-0.30) K/uL Imm/Tot Granulo (auto) 1.5 % Sodium 137 (135-149) mmol/L Potassium 4.3 (3.6-5.1) mmol/L Chloride 101 (96-114) mmol/L Carbon Dioxide 25 (20-32) mmol/L Anion Gap 11 (7-15) mEq/L BUN 30 (7-30) mg/dL Creatinine 1.6 H (0.5-1.5) mg/dL Estimated Creat Clear 38.66 Estimated GFR 44 ml/min Glucose 140 H (60-115) mg/dL Calcium 10.0 (8.4-10.6) mg/dL C-Reactive Protein < 0.5 L (0.5-1.0) mg/dL Urine Color Dark yellow (Yellow) Urine Appearance Clear (Clear) Urine pH 6.0 (5.0-8.5) Ur Specific [place] 1.020 (1.000-1.030) Urine Protein Negative (Negative) Urine Glucose (UA) Negative (Negative) Urine Ketones Negative (Negative) Urine Blood Negative (Negative) Urine Nitrite Negative (Negative) Urine Bilirubin Negative (Negative) Urine Urobilinogen 0.2 (0.2-1.0) Ur Leukocyte Esterase Negative (Negative) Urine RBC 0-2 (0-2) Urine WBC 0-2 (0-5) Ur Squamous Epith Cells None (None-Few) Urine Bacteria None (None) Imaging Data US scrotum: Attestation: I have reviewed the pertinent imaging results. Radiologist's impression: Patient: ROGER FREDERICK Facility:?[facility] Patient ID:?[id number] Site Patient ID:?[id number]. Site :?[id number] Study:?US-Testicle SCROTUM-09/22/2023 5:37:35 PM Ordering Physician:Paco Martinez Final Report: Indication: Left testicular pain Technique: Multiple transverse and sagittal grayscale, color, and spectral Doppler sonographic images of the scrotum were obtained. Comparison: None. Findings: Right scrotum: Testis measurements: 3.1 x 2.4 x 3.1 cm. Testis appearance: Normal. No intratesticular masses. Color and spectral Doppler tracings: Normal. Epididymis: Cysts measuring 0.9 x 1.2 x 0.9 centimeter in the head and 0.8 x 0.4 x 0.7 centimeter in the body. Other: Small hydrocele. Left scrotum: Testis measurements: 4.3 x 2.2 x 2.5 cm. Testis appearance: Normal. No intratesticular masses. Color and spectral Doppler tracings: Normal. Epididymis: Cyst measuring 0.7 x 0.5 x 0.6 centimeter. Other: Small hydrocele. Varicocele. Impression: 1. Preserved bilateral testicular blood flow. 2. Small bilateral hydroceles. 3. Left varicocele. The area of pain directly overlies the varicocele. In the absence of real-time images, findings may represent slow flow, though short- segment thrombus in the varicocele can not be excluded. Dictated by Adolfo Lagunas MD @ 09/22/2023 6:48:58 PM (Electronic Signature) Discharge Plan Discharge Clinical Impression: Left testicular pain, Left varicocele Patient Disposition: Home, Self-Care Condition: Stable Instructions: Testicle Pain (ED) Additional Instructions: There is concern that there may be a segment of blood clot or thrombus in the left varicocele which could be responsible for the pain. Otherwise there is no concerning change on the ultrasound. Continue on the 81mg aspirin. Tylenol 1000 mg 3 times a day baseline for pain. Have written for oxycodone 5 mg 1 every 6 hours as needed for severe pain, 12 pills prescribed to get you through the weekend. He will need to follow up on Monday in clinic if you need more pain pills, also if there is ongoing pain. Your primary care provider may ultimately need to have you seen by Urology if ongoing issues. Activity Level: Activity as Tolerated Prescriptions: No Action multivitamin [Multiple Vitamins] Tablet 1 tab PO QDAY aspirin 81 mg tablet,delayed release (DR/EC) 81 mg PO DAILY (DME) Diabetic Test Strips Misc See Rx Instructions .Route Rx Instructions: As directed omega-3 fatty acids-fish oil 360-1,200 mg capsule 1 cap PO QDAY Mounjaro 2.5 mg/0.5 mL pen injector subcut azithromycin [Zithromax Z-Adarsh] 250 mg tablet See Rx Instructions PO .COMPLEX Qty: 6 0RF Rx Instructions: For 250 mg dose pack: take 500 mg today (day 1), then 250 mg for 4 days (days 2-5) PO (DME) FreeStyle Stormy 2 Sensor Kit See Rx Instructions .ROUTE .MEDSUPPLY Qty: 1 Patient Comments: [NO ORIGINAL SIG] Rx Instructions: As directed (DME) FreeStyle Stormy 2 [place] Misc See Rx Instructions .ROUTE DIRECTED Qty: 1 Rx Instructions: As directed albuterol sulfate 90 mcg/actuation HFA aerosol inhaler 2 puff inhalation Q4-6H PRN (Reason: shortness of breath or wheezing) Qty: 8.5 3RF carvedilol 12.5 mg tablet 12.5 mg PO BID Qty: 180 3RF chlorthalidone 25 mg tablet 25 mg PO DAILY Qty: 90 3RF fenofibrate nanocrystallized 145 mg tablet 145 mg PO DAILY Qty: 90 3RF lisinopril 40 mg tablet 40 mg PO DAILY Qty: 90 3RF atorvastatin 20 mg tablet 20 mg PO HS omeprazole 40 mg capsule,delayed release(DR/EC) 40 mg PO HS insulin glargine-yfgn 100 unit/mL (3 mL) insulin pen 60 - 70 unit subcut HS (DME) pen needle, diabetic 31 gauge x 5/16 needle See Rx Instructions .Route Qty: 100 3RF Rx Instructions: As directed (DME) pen needle, diabetic [BD Ultra-Fine Mini Pen Needle] 31 gauge x 3/16 needle See Rx Instructions .Route Qty: 100 0RF Rx Instructions: Patient to use 4 times a day Aspart Flex Pen 20 units IM TID Qty: 1800 0RF insulin aspart U-100 100 unit/mL (3 mL) insulin pen 20 unit subcut TIDWMEAL Qty: 30 0RF clobetasol 0.05 % cream 1 applic topical BID Qty: 30 2RF Rx Instructions: Apply topically to affected area twice daily as needed, put away cream when skin has cleared. Follow Up/Referrals: Tulio Ortiz MD [Primary Care Provider] - Stand Alone Forms: [facility] Info Instructions
--- NOTE | 2023-09-22 16:43 | CRLHL7_ITS ---
For Patients: As a result of the Century Cures Act, medical imaging exams and procedure reports are released immediately into your electronic medical record. You may view this report before your referring provider. If you have questions, please contact your health care provider. Indication: Left testicular pain Technique: Multiple transverse and sagittal grayscale, color, and spectral Doppler sonographic images of the scrotum were obtained. Comparison: None. Findings: Right scrotum: Testis measurements: 3.1 x 2.4 x 3.1 cm. Testis appearance: Normal. No intratesticular masses. Color and spectral Doppler tracings: Normal. Epididymis: Cysts measuring 0.9 x 1.2 x 0.9 centimeter in the head and 0.8 x 0.4 x 0.7 centimeter in the body. Other: Small hydrocele. Left scrotum: Testis measurements: 4.3 x 2.2 x 2.5 cm. Testis appearance: Normal. No intratesticular masses. Color and spectral Doppler tracings: Normal. Epididymis: Cyst measuring 0.7 x 0.5 x 0.6 centimeter. Other: Small hydrocele. Varicocele. Impression: 1. Preserved bilateral testicular blood flow. 2. Small bilateral hydroceles. 3. Left varicocele. The area of pain directly overlies the varicocele. In the absence of real-time images, findings may represent slow flow, though short-segment thrombus in the varicocele can not be excluded. Dictated by Adolfo Lagunas MD @ 09/22/2023 6:48:58 PM (Electronically Signed)
--- OUTSIDE RECORDS SUMMARY | 2023-09-22 17:04 | XMS_ITS | Continuity of Care Document ---
Author Name [facility] Organization [facility] Care Team Providers Care Waterfront Director Name Role Phone [facility] Unavailable Unavailable Problems Problem Status Onset Date Classification Date Reported Comments Source Influenza due to other identified influe Active 02/14/2022 [facility] Acute respiratory failure with hypoxia Active 02/14/2022 [facility] Shortness of breath Active [facility] Medications Medication Details Route Status Patient Instructions Ordering Provider Order Date Source Tamiflu 75 mg oral capsule = 1 Cap, ORAL, BID, X 5 Day(s), # 10 Cap, 0 Refill(s), Acute, Pharmacy: [facility] #[id number], 175.24, cm, 02/14/22 17:56:00 PST, Height/Length (cm), 108, kg, 02/14/22 17:56:00 PST, Dose calculation weight (kg) Active 60 [facility] NovoLOG FlexPen 0 Refill(s), Maintenance Active 60 [facility] Semglee 70 mg evenings, 0 Refill(s), Maintenance Active 60 [facility] chlorthalidone 25 mg oral tablet = 1 Tab, ORAL, DAILY, 1/2 daily, 0 Refill(s), Maintenance Active 60 [facility] omeprazole 40 mg oral delayed release capsule 1 Cap, ORAL, DAILY, 0 Refill(s), Maintenance Active 60 [facility] fluticasone 50 mcg/inh inhalation powder 1 Puff, INH, BID, 0 Refill(s), Maintenance Active 60 [facility] fenofibrate 145 mg oral tablet = 1 Tab, ORAL, DAILY, 0 Refill(s), Maintenance Active 60 [facility] A/Fish Oil 74072 u oral capsule 0 Refill(s), Maintenance Active 60 [facility] albuterol 2.5 mg, INH, [id number], 0 Refill(s), Maintenance Active 60 [facility] Aspir 81 oral enteric coated tablet = 1 Tab, ORAL, DAILY, 0 Refill(s), Maintenance Active 60 [facility] atorvastatin 10 mg oral tablet = 1 Tab, ORAL, DAILY, 0 Refill(s), Maintenance Active 60 [facility] Results Order Name Results Value Reference Range Date Interpretation Comments Source AutoDiff* Auto Neutrophil Percent 90.5 % 49.4 - 72.6 02/16 H [facility] AutoDiff* Auto Neutrophil Absolute 9.5 K/uL 2.0 - 6.4 02/16 H [facility] AutoDiff* Auto Lymphocyte Percent 4.8 % 18.0 - 40.0 02/16 L [facility] AutoDiff* Auto Lymphocyte Absolute 0.5 K/uL 1.5 - 3.0 02/16 [facility] AutoDiff* Auto Monocyte Percent 4.7 % 4.9 - 10.1 02/16 [facility] AutoDiff* Auto Monocyte Absolute 0.5 K/uL 0.3 - 0.8 02/16 [facility] AutoDiff* Auto Eosinophil Percent 0.0 % 0.0 - 5.0 02/16 [facility] AutoDiff* Auto Eosinophil Absolute 0.0 K/uL 0.0 - 0.4 02/16 [facility] AutoDiff* Auto Basophil Percent 0.0 % 0.2 - 1.2 02/16 [facility] AutoDiff* Auto Basophil Absolute 0.0 K/uL 0.0 - 0.1 02/16 [facility] AutoDiff* Sex assigned at Male 02/16 [facility] CBC WBC 10.5 K/uL 3.7 - 10.5 02/16 [facility] CBC RBC 3.90 M/uL 3.81 - 5.87 02/16 NA [facility] CBC HGB 11.7 g/dL 12.0 - 17.9 02/16 L [facility] CBC HCT 34.3 % 34.4 - 50.2 02/16 L [facility] CBC MCV 88.0 fL 80.0 - 99.8 02/16 NA [facility] CBC MCH 29.9 pg 26.7 - 34.0 02/16 NA [facility] CBC MCHC 33.9 g/dL 31.0 - 37.0 02/16 NA [facility] CBC RDW 15.5 % 12.0 - 15.8 02/16 NA [facility] CBC PLT 146 K/uL 139 - 422 02/16 NA [facility] CBC MPV 9.00 fL 6.84 - 10.28 02/16 NA [facility] CBC Sex assigned at Male 02/16 NA [facility] CMP Sodium Level 132 MMOL/L 135 - 145 02/16 L [facility] CMP Potassium Level 4.1 MMOL/L 3.5 - 5.0 02/16 NA [facility] CMP Chloride Level 101 MMOL/L 101 - 111 02/16 NA [facility] CMP CO2/Carbon Dioxide 22 MMOL/L 24 - 32 02/16 L [facility] CMP Anion Gap 9.0 5.0 - 15.0 02/16 NA [facility] CMP Glucose, Random 316 MG/DL - <=200 02/16 H [facility] CMP BUN 34 MG/DL 8 - 20 02/16 H [facility] CMP Creatinine 1.39 MG/DL 0.60 - 1.30 02/16 H [facility] CMP BUN/Creat Ratio 24.5 12.0 - 20.0 02/16 H [facility] CMP Osmolality, Calculated 284 mOsm/L 02/16 [facility] Calcium Level 8.6 MG/DL 8.4 - 10.2 02/16 [facility] Total Protein 6.6 g/dL 6.4 - 8.3 02/16 [facility] Albumin Level 3.5 g/dL 3.2 - 5.5 02/16 [facility] Globulin Level 3.1 g/dL 1.5 - 3.5 02/16 NA [facility] A/G Ratio 1.1 1.1 - 2.2 02/16 NA [facility] ALP 35 IU/L 30 - 115 02/16 [facility] ALT 40 IU/L 5 - 36 02/16 H [facility] AST 50 IU/L 10 - 42 02/16 H [facility] Bilirubin, Total 0.6 MG/DL 0.2 - 1.2 02/16 [facility] GFR - Non 53 mL/min/1.7 3m2 >=61 [...] or greater, not for pediatric patients. [facility] GFR - 64 mL/min/1.7 3m2 >=61 02/16 [facility] Sex assigned at Male 02/16 NA [facility] Mg Magnesium Level 2.2 MG/DL 1.7 - 2.8 02/16 NA [facility] Mg Sex assigned at Male 02/16 NA [facility] Phos Phosphorus Level 2.8 MG/DL 2.5 - 4.5 02/16 NA [facility] Phos Sex assigned at Male 02/16 NA [facility] AutoDiff* Auto Neutrophil Percent 89.9 % 49.4 - 72.6 02/15 H [facility] AutoDiff* Auto Neutrophil Absolute 8.5 K/uL 2.0 - 6.4 02/15 H [facility] AutoDiff* Auto Lymphocyte Percent 5.1 % 18.0 - 40.0 02/15 L [facility] AutoDiff* Auto Lymphocyte Absolute 0.5 K/uL 1.5 - 3.0 02/15 L [facility] AutoDiff* Auto Monocyte Percent 5.0 % 4.9 - 10.1 02/15 NA [facility] AutoDiff* Auto Monocyte Absolute 0.5 K/uL 0.3 - 0.8 02/15 NA [facility] AutoDiff* Auto Eosinophil Percent 0.0 % 0.0 - 5.0 02/15 NA [facility] AutoDiff* Auto Eosinophil Absolute 0.0 K/uL 0.0 - 0.4 02/15 NA [facility] AutoDiff* Auto Basophil Percent 0.0 % 0.2 - 1.2 02/15 L [facility] AutoDiff* Auto Basophil Absolute 0.0 K/uL 0.0 - 0.1 02/15 NA [facility] AutoDiff* Sex assigned at Male 02/15 NA [facility] CBC WBC 9.4 K/uL 3.7 - 10.5 02/15 NA [facility] CBC RBC 3.91 M/uL 3.81 - 5.87 02/15 NA [facility] CBC HGB 11.6 g/dL 12.0 - 17.9 02/15 L [facility] CBC HCT 34.9 % 34.4 - 50.2 02/15 NA [facility] CBC MCV 89.4 fL 80.0 - 99.8 02/15 NA [facility] CBC MCH 29.6 pg 26.7 - 34.0 02/15 NA [facility] CBC MCHC 33.2 g/dL 31.0 - 37.0 02/15 NA [facility] CBC RDW 15.5 % 12.0 - 15.8 02/15 NA [facility] CBC PLT 123 K/uL 139 - 422 02/15 L [facility] CBC MPV 9.30 fL 6.84 - 10.28 02/15 NA [facility] CBC Sex assigned at Male 02/15 NA [facility] CMP Sodium Level 136 MMOL/L 135 - 145 02/15 NA [facility] CMP Potassium Level 4.5 MMOL/L 3.5 - 5.0 02/15 NA [facility] CMP Chloride Level 104 MMOL/L 101 - 111 02/15 NA [facility] CMP CO2/Carbon Dioxide 24 MMOL/L 24 - 32 02/15 NA [facility] CMP Anion Gap 8.0 5.0 - 15.0 02/15 NA [facility] CMP Glucose, Random 302 MG/DL - <=200 02/15 H [facility] CMP BUN 27 MG/DL 8 - 20 02/15 H [facility] CMP Creatinine 1.59 MG/DL 0.60 - 1.30 02/15 H [facility] CMP BUN/Creat Ratio 17.0 12.0 - 20.0 02/15 [facility] CMP Osmolality, Calculated 288 mOsm/L 02/15 NA [facility] CMP Calcium Level 8.7 MG/DL 8.4 - 10.2 02/15 [facility] CMP Total Protein 6.6 g/dL 6.4 - 8.3 02/15 [facility] CMP Albumin Level 3.6 g/dL 3.2 - 5.5 02/15 NA [facility] CMP Globulin Level 3.0 g/dL 1.5 - 3.5 02/15 NA [facility] CMP A/G Ratio 1.2 1.1 - 2.2 02/15 NA [facility] CMP ALP 36 IU/L 30 - 115 02/15 NA [facility] CMP ALT 44 IU/L 5 - 36 02/15 H [facility] CMP AST 58 IU/L 10 - 42 02/15 H [facility] CMP Bilirubin, Total 0.5 MG/DL 0.2 - 1.2 02/15 [facility] GFR - Non 45 mL/min/1.7 3m2 >=61 [...] 18 or greater, not for pediatric patients. [facility] CMP Sex assigned at Male 02/15 [facility] CMP GFR - 55 mL/min/1.7 3m2 >=61 02/15 L [facility] Mg Magnesium Level 2.0 MG/DL 1.7 - 2.8 02/15 NA [facility] Mg Sex assigned at Male 02/15 NA [facility] Phos Phosphorus Level 2.4 MG/DL 2.5 - 4.5 02/15 L [facility] Phos Sex assigned at Male 02/15 NA [facility] Lactic Lactic Acid Level 2.3 MMOL/L 0.5 - 2.2 02/15 H [facility] Lactic Sex assigned at Male 02/15 NA [facility] Lactic Lactic Acid Level 2.8 MMOL/L 0.5 - 2.2 02/14 H [facility] Lactic Sex assigned at Male 02/14 NA [facility] POC G3+ Art ABG - pH 7.441 7.350 - 7.450 02/14 NA Device Code: 60 iSTAT EDFacility: 0060Location: 60 ERSerial Number: [id number] Code: [id number] rator Name: Carroll TerrellTiesha e Lot: [id number] [facility] POC G3+ Art ABG - pO2 71 mmHg 80 - 105 02/14 L [facility] POC G3+ Art ABG - pCO2 33 mmHg 35 - 45 02/14 L [facility] POC G3+ Art ABG - HCO3 22.4 MEQ/L 22.0 - 26.0 02/14 NA [facility] POC G3+ Art ABG - TCO2 23 MEQ/L 23 - 27 02/14 NA [facility] POC G3+ Art ABG - BE -2.0 MEQ/L -2.0 - 3.0 02/14 NA [facility] POC G3+ Art ABG - O2 Sat 95.0 % 95.0 - 99.0 02/14 NA [facility] POC G3+ Art BG - Modified Juan Test PASS 02/14 NA [facility] POC G3+ Art BG - Site RRAD 02/14 NA [facility] POC G3+ Art FIO2 28 % 02/14 NA [facility] POC G3+ Art BG - O2 Device NC 02/14 NA [facility] POC G3+ Art BG - Oxygen Flow 2.0 L/min 02/14 NA [facility] POC G3+ Art BG - Patient Rate 22 br/min 02/14 NA [facility] POC G3+ Art BG - Pulse Oximetry 94 % 02/14 NA [facility] POC G3+ Art Sex assigned at Male 02/14 NA [facility] CRP CRP C-Reactive Protein 12.60 MG/DL 0.00 - 0.90 02/14 H [facility] CRP Sex assigned at Male 02/14 [facility] DDimerQnt D-Dimer, Qnt 0.45 ZZ - [...] 65 0.65mg/L FEU 70 0.70mg/L FEU Etc. [facility] DDimerQnt Sex assigned at Male 02/14 [facility] PCT Procalcitoni n Level 0.47 NG/ML - <=0.50 02/14 NA [facility] PCT Sex assigned at Male 02/14 NA [facility] AutoDiff* Auto Neutrophil Percent 85.8 % 49.4 - 72.6 02/14 H [facility] AutoDiff* Auto Neutrophil Absolute 7.2 K/uL 2.0 - 6.4 02/14 H [facility] AutoDiff* Auto Lymphocyte Percent 3.8 % 18.0 - 40.0 02/14 L [facility] AutoDiff* Auto Lymphocyte Absolute 0.3 K/uL 1.5 - 3.0 02/14 L [facility] AutoDiff* Auto Monocyte Percent 9.4 % 4.9 - 10.1 02/14 NA [facility] AutoDiff* Auto Monocyte Absolute 0.8 K/uL 0.3 - 0.8 02/14 NA [facility] AutoDiff* Auto Eosinophil Percent 0.5 % 0.0 - 5.0 02/14 NA [facility] AutoDiff* Auto Eosinophil Absolute 0.0 K/uL 0.0 - 0.4 02/14 NA [facility] AutoDiff* Auto Basophil Percent 0.5 % 0.2 - 1.2 02/14 NA [facility] AutoDiff* Auto Basophil Absolute 0.0 K/uL 0.0 - 0.1 02/14 NA [facility] AutoDiff* Sex assigned at Male 02/14 NA [facility] CBC WBC 8.4 K/uL 3.7 - 10.5 02/14 NA [facility] CBC RBC 4.24 M/uL 3.81 - 5.87 02/14 NA [facility] CBC HGB 12.6 g/dL 12.0 - 17.9 02/14 [facility] CBC HCT 37.7 % 34.4 - 50.2 02/14 NA [facility] CBC MCV 88.9 fL 80.0 - 99.8 02/14 NA [facility] CBC MCH 29.7 pg 26.7 - 34.0 02/14 NA [facility] CBC MCHC 33.3 g/dL 31.0 - 37.0 02/14 NA [facility] CBC RDW 15.3 % 12.0 - 15.8 02/14 NA [facility] CBC PLT 138 K/uL 139 - 422 02/14 L [facility] CBC MPV 8.60 fL 6.84 - 10.28 02/14 NA [facility] CBC Sex assigned at Male 02/14 NA [facility] CMP Sodium Level 134 MMOL/L 135 - 145 02/14 L [facility] CMP Potassium Level 3.6 MMOL/L 3.5 - 5.0 02/14 NA [facility] CMP Chloride Level 100 MMOL/L 101 - 111 02/14 L [facility] CMP CO2/Carbon Dioxide 25 MMOL/L 24 - 32 02/14 NA [facility] CMP Anion Gap 9.0 5.0 - 15.0 02/14 NA [facility] CMP Glucose, Random 125 MG/DL - <=200 02/14 NA [facility] CMP BUN 19 MG/DL 8 - 20 02/14 NA [facility] CMP Creatinine 1.52 MG/DL 0.60 - 1.30 02/14 H [facility] CMP BUN/Creat Ratio 12.5 12.0 - 20.0 02/14 [facility] CMP Osmolality, Calculated 272 mOsm/L 02/14 [facility] CMP Calcium Level 9.1 MG/DL 8.4 - 10.2 02/14 NA [facility] CMP Total Protein 7.2 g/dL 6.4 - 8.3 02/14 NA [facility] CMP Albumin Level 4.1 g/dL 3.2 - 5.5 02/14 NA [facility] CMP Globulin Level 3.1 g/dL 1.5 - 3.5 02/14 NA [facility] CMP A/G Ratio 1.3 1.1 - 2.2 02/14 NA [facility] CMP ALP 45 IU/L 30 - 115 02/14 NA [facility] CMP ALT 53 IU/L 5 - 36 02/14 H [facility] CMP AST 79 IU/L 10 - 42 02/14 H [facility] CMP Bilirubin, Total 0.8 MG/DL 0.2 - 1.2 02/14 NA [facility] CMP GFR - Non 48 mL/min/1.7 3m2 [...] 18 or greater, not for pediatric patients. [facility] CMP Sex assigned at Male 02/14 NA [facility] CMP GFR - 58 mL/min/1.7 3m2 >=61 02/14 L [facility] Lactic WB Lactic Acid WB 2.17 MMOL/L 0.56 - 1.39 02/14 H [facility] Lactic WB Sex assigned at Male 02/14 NA [facility] Trop Troponin I 0.03 NG/ML 0.00 - [...] infarction and other causes of myocardial damage. [facility] Trop Sex assigned at Male 02/14 NA [facility] Culture Blood No growth at 2 days. 02/14 60 [facility] C Blood C Blood Final:No growth at 5 days.Sex assigned at :Male 02/14 Performed at: [facility], [address] [place] [id number], Football Coach: Doc Jones M.D. [facility] [id number] SARS-CoV-2 Source Mckay gedc 02/14 NA [facility] [id number] Influenza A Agn Molecular Detected Not Detected [...] determined. Re-collection is recommended if clinically indicated [facility] [id number] Influenza B Agn Molecular Not Detected Not Detected 02/14 NA Assay performed by RT-PCR [facility] [id number] SARS-CoV-2 Molecular Not Detected Not Detected 02/14 NA Assay performed by RT-PCRThis test was performed under U.S. Food and Drug Administratio n (FDA) Emergency use Authorization (EUA). This test has been validated but the [facility] independent review of this validation is pending. [facility] [id number] SARS-CoV-2 First test? No 02/14 NA [facility] [id number] Health Care Worker? No 02/14 NA [facility] [id number] SARS-CoV-2 Is the Patient Hospitalized ? No 02/14 NA [facility] [id number] SARS-CoV-2 Is the Patient in ICU? No 02/14 NA [facility] [id number] Patient From [facility]? No 02/14 NA [facility] [id number] Symptomatic per CDC? Yes 02/14 NA [facility] [id number] SARS-CoV-2 Is the Patient ? No 02/14 NA [facility] [id number] Sex assigned at Male 02/14 [facility] RSV Molc Respiratory Syncytial Virus Molecular Not [...] determined. Re-collection is recommended if clinically indicated. [facility] RSV Molc Sex assigned at Male 02/14 [facility] Diagnostic Reports Report Value Date Source Chest 1 Vw Portable INDICATION: Shortnes s of Breath COMPARISON: None. FINDINGS: The lungs are well expanded and clear, and the cardiac silhouette and pulmonary vessels appear normal. There is no pulmonary vascular redistribution, pleural effusion, or pneumothorax seen. Signed by: Sean Beverly MD on 02/14/2022 12:11 PM 02/14/2022 [facility] Consultation Notes Results Value Date Source Hospitalist [...] mL: 2 gm = 50 mL, IVPB, [id number], PRN, Magnesium Replacement, IV SOLN, 02/14/22 12:51:00 [...] 108, kg Documented Medications Documented A/Fish Oil 73846 u oral capsule: 0 Refill(s), Maintenance Aspir 81 oral enteric coated tablet: = 1 Tab, ORAL, DAILY, 0 Refill(s), Maintenance NovoLOG FlexPen: 0 Refill(s), Maintenance Semglee: 70 mg evenings, 0 Refill(s), Maintenance albuterol: 2.5 mg, INH, [id number], 0 Refill(s), Maintenance atorvastatin 10 mg oral [...] / SWFI 2 gm 50 mL, IVPB, [id number] ondansetron 2 mg/mL, 2 mL Inj 4 mg 2 mL, IV PUSH, Q4H potassium chloride 10 mEq 100 mL, IVPB, As directed Problem list: All Problems Current smoker / [id number] / Confirmed Ineffective breathing pattern / [id number] / Provisional Manage infection control / [id number] / Provisional Physical Examination Vital Signs 02/16/2022 [...] Rabin Signed on: 16-Feb-2022 10:32 PST [facility]16[facility] Patient: ROGER FREDERICK Age: 76 [...] mL: 2 gm = 50 mL, IVPB, [id number], PRN, Magnesium Replacement, IV SOLN, 02/14/22 12:51:00 [...] 108, kg Documented Medications Documented A/Fish Oil 90883 u oral capsule: 0 Refill(s), Maintenance Aspir 81 oral enteric coated tablet: = 1 Tab, ORAL, DAILY, 0 Refill(s), Maintenance NovoLOG FlexPen: 0 Refill(s), Maintenance Semglee: 70 mg evenings, 0 Refill(s), Maintenance albuterol: 2.5 mg, INH, [id number], 0 Refill(s), Maintenance atorvastatin 10 mg oral [...] / SWFI 2 gm 50 mL, IVPB, [id number] ondansetron 2 mg/mL, 2 mL Inj 4 mg 2 mL, IV PUSH, Q4H potassium chloride 10 mEq 100 mL, IVPB, As directed Problem list: All Problems Current smoker / [id number] / Confirmed Ineffective breathing pattern / [id number] / Provisional Manage infection control / [id number] / Provisional Physical Examination Vital Signs 02/16/2022 [...] patient's response to treatment DC home soon [id number] Male 02/16/2022 [facility] Critical care medicine [facility] Progress note Patient: ROGER FREDERICK Age: [...] mL: 2 gm = 50 mL, IVPB, [id number], PRN, Magnesium Replacement, IV SOLN, 02/14/22 12:51:00 [...] 108, kg Documented Medications Documented A/Fish Oil 71864 u oral capsule: 0 Refill(s), Maintenance Aspir 81 oral enteric coated tablet: = 1 Tab, ORAL, DAILY, 0 Refill(s), Maintenance NovoLOG FlexPen: 0 Refill(s), Maintenance Semglee: 70 mg evenings, 0 Refill(s), Maintenance albuterol: 2.5 mg, INH, [id number], 0 Refill(s), Maintenance atorvastatin 10 mg oral [...] mL: 2 gm = 50 mL, IVPB, [id number], PRN, Magnesium Replacement, IV SOLN, 02/14/22 12:51:00 [...] 108, kg Documented Medications Documented A/Fish Oil 20158 u oral capsule: 0 Refill(s), Maintenance Aspir 81 oral enteric coated tablet: = 1 Tab, ORAL, DAILY, 0 Refill(s), Maintenance NovoLOG FlexPen: 0 Refill(s), Maintenance Semglee: 70 mg evenings, 0 Refill(s), Maintenance albuterol: 2.5 mg, INH, [id number], 0 Refill(s), Maintenance atorvastatin 10 mg oral [...] Vijay Signed on: 15-Feb-2022 18:43 PST 02/16/2022 [facility] Critical Care Progress Note Patient: ROGER FREDERICK [...] mL: 2 gm = 50 mL, IVPB, [id number], PRN, Magnesium Replacement, IV SOLN, 02/14/22 12:51:00 [...] 108, kg Documented Medications Documented A/Fish Oil 96784 u oral capsule: 0 Refill(s), Maintenance Aspir 81 oral enteric coated tablet: = 1 Tab, ORAL, DAILY, 0 Refill(s), Maintenance NovoLOG FlexPen: 0 Refill(s), Maintenance Semglee: 70 mg evenings, 0 Refill(s), Maintenance albuterol: 2.5 mg, INH, [id number], 0 Refill(s), Maintenance atorvastatin 10 mg oral [...] mL: 2 gm = 50 mL, IVPB, [id number], PRN, Magnesium Replacement, IV SOLN, 02/14/22 12:51:00 [...] 108, kg Documented Medications Documented A/Fish Oil 09045 u oral capsule: 0 Refill(s), Maintenance Aspir 81 oral enteric coated tablet: = 1 Tab, ORAL, DAILY, 0 Refill(s), Maintenance NovoLOG FlexPen: 0 Refill(s), Maintenance Semglee: 70 mg evenings, 0 Refill(s), Maintenance albuterol: 2.5 mg, INH, [id number], 0 Refill(s), Maintenance atorvastatin 10 mg oral [...] 1 Cap, ORAL, DAILY, 0 Refill(s), Maintenance. 79418-2 Male 02/16[facility]2022 [facility] Patient: ROGER FREDERICK Age: 76 [...] mL: 2 gm = 50 mL, IVPB, [id number], PRN, Magnesium Replacement, IV SOLN, 02/14/22 12:51:00 [...] 108, kg Documented Medications Documented A/Fish Oil 67281 u oral capsule: 0 Refill(s), Maintenance Aspir 81 oral enteric coated tablet: = 1 Tab, ORAL, DAILY, 0 Refill(s), Maintenance NovoLOG FlexPen: 0 Refill(s), Maintenance Semglee: 70 mg evenings, 0 Refill(s), Maintenance albuterol: 2.5 mg, INH, [id number]-Umnoosbm, 0 Refill(s), Maintenance atorvastatin 10 mg oral [...] / SWFI 2 gm 50 mL, IVPB, [id number] ondansetron 2 mg/mL, 2 mL Inj 4 mg 2 mL, IV PUSH, Q4H potassium chloride 10 mEq 100 mL, IVPB, As directed Problem list: All Problems Current smoker / [id number] / Confirmed Manage infection control / [id number] / Provisional Physical Examination Vital Signs 02/15/2022 [...] will depend to patient's response to treatment 38993-7 Male 02/15/2022 [facility] Consult note Patient: ROGER FREDERICK Age: 76 years Legal Sex: Male : 1945 Author: MD Ortiz Vijay Basic Information Provider information/ cc: Physicians Involved With Care ?? Admitting: ? MD Jose David, [facility] ?? Attending: ? MD Jose David, [facility] ?? Consulting: ? MD Angel, Jeronimo [...] with fevers and body aches. He is [facility]. Laboratory work-up in the ER with white [...] medications: Home Medications (12) Active A/Fish Oil 73868 u oral capsule ?(Documented?02/14/22) acetaminophen 650 mg rectal suppository 650 mg = 1 Supp, PRN, RECTAL, Q4H?(Documented?02/14/22) acetaminophen 650 mg rectal suppository 650 mg = 1 Supp, PRN, RECTAL, Q4H?(Documented?02/14/22) albuterol 2.5 mg, INH, O3E-Zpjisbrg?(Documented?02/14) Aspir 81 oral enteric coated tablet 81 [...] mL: 2 gm = 50 mL, IVPB, L93P-Enccivmi, PRN, Magnesium Replacement, IV SOLN, 02/14/22 12:51:00 [...] 108, kg Documented Medications Documented A/Fish Oil 12423 u oral capsule: 0 Refill(s), Maintenance Aspir [...] 0 Refill(s), Maintenance albuterol: 2.5 mg, INH, D5O-Zzxxlbue, 0 Refill(s), Maintenance atorvastatin 10 mg oral [...] in SWFI 50 mL) 2 gm IVPB J75M-Zyctsrnf ondansetron (Zofran) 4 mg IV PUSH Q4H [...] would you like me to No *Is Church/Spirituality/Tavia important to you as you cope No [...] Vijay Signed on: 15-Feb-2022 18:26 PST 02/15/2022 [facility] Consultation Patient: ROGER FREDERICK Age: 76 years [...] with fevers and body aches. He is [facility]. Laboratory work-up in the ER with white [...] medications: Home Medications (12) Active A/Fish Oil 83610 u oral capsule (Documented 02/14/22) acetaminophen 650 mg rectal suppository 650 mg = 1 Supp, PRN, RECTAL, Q4H (Documented 02/14/22) acetaminophen 650 mg rectal suppository 650 mg = 1 Supp, PRN, RECTAL, Q4H (Documented 02/14/22) albuterol 2.5 mg, INH, W1V-Keeiquyn (Documented 02/14/22) Aspir 81 oral enteric coated [...] mL: 2 gm = 50 mL, IVPB, P15U-Bwcpzaye, PRN, Magnesium Replacement, IV SOLN, 02/14/22 12:51:00 [...] 108, kg Documented Medications Documented A/Fish Oil 31131 u oral capsule: 0 Refill(s), Maintenance Aspir [...] 0 Refill(s), Maintenance albuterol: 2.5 mg, INH, W8M-Lkigvvna, 0 Refill(s), Maintenance atorvastatin 10 mg oral [...] in SWFI 50 mL) 2 gm IVPB T20F-Mudgjyvj ondansetron (Zofran) 4 mg IV PUSH Q4H [...] would you like me to No *Is Church/Spirituality/Tavia important to you as you cope No [...] use compliant DVT/PUD prophylaxis Condition prognosis guarded [id number] Male 02/15/2022 [facility] History and Physical Examination Patient: ROGER FREDERICK ? Age: 76 years?Legal Sex: MALE?: 1945 Date of Service 02/14/2022 13:21 PST Chief Complaint Shortness of breath. History of Present Illness 76-year-old male with past medical history significant for hypertension, hyperlipidemia, type 2 diabetes mellitus, asthma, obstructive sleep apnea, gastroesophageal reflux disease presents [facility] emergency department complaint shortness of breath.? Patient details that over the past 3 to 4 days he has been having progressive congestion, dry cough, mild shortness of breath.? Patient details body aches.? Patient also recently developed fevers.? Patient details that his recently had an upper respiratory infection 4 days prior.? Patient is visiting from [place].? Denies any chest pain.? No abdominal pain [...] Bilateral: Upper extremity ( Capillary Refill Time (FURNACE PROCESS PLANT OPERATOR) returns in less than 2 seconds ), Lower extremity ( Capillary Refill Time (FURNACE PROCESS PLANT OPERATOR) returns in less than 2 seconds ). ? Gastrointestinal: ?Soft, Non-tender, Non-distended, Normal bowel sounds, No organomegaly. ? Genitourinary: ?No costovertebral angle tenderness. Lymphatics: ?No lymphadenopathy neck, axilla, groin. ? Musculoskeletal: ?Normal range of motion, Normal strength, No tenderness, No swelling, No deformity, Normal gait. ? Integumentary: ?Warm, Shively, Intact, No pallor, No rash. ? Neurologic: [...] 21:00:00 PST enoxaparin (Lovenox), 40 mg, SUBQ, A43G-Mmitghyi, Indication = VTE Prophylaxis, INJ, 02/14/22 13:00:00 [...] mL), 2 gm = 50 mL, IVPB, E93M-Mbmohkxw, PRN, Magnesium Replacement, IV SOLN, 02/14/22 12:51:00 [...] PRN Lovenox, 40 mg, 0.4 mL, SUBQ, Y83E-Uszkjdxy magnesium oxide, 400 mg, 1 Tab, ORAL, BID, PRN magnesium sulfate 2 g in SWFI 50 mL, 2 gm, 50 mL, IVPB, L08E-Ibxoggow, PRN potassium bicarbonate-citric acid, 20 mEq, 1 [...] IV PUSH, Q4H, PRN Home A/Fish Oil 99713 u oral capsule acetaminophen 650 mg rectal suppository, 650 mg, 1 Supp, RECTAL, Q4H, PRN acetaminophen 650 mg rectal suppository, 650 mg, 1 Supp, RECTAL, Q4H, PRN albuterol, 2.5 mg, INH, Q3M-Fvdmgxgf Aspir 81 oral enteric coated tablet, 81 [...] Armen Signed on: 14-Feb-2022 13:56 PST 02/14/2022 [facility] Portable XR Chest AP single view INDICATION: Shortness of Breath COMPARISON: None. FINDINGS: The lungs are well expanded and clear, and the cardiac silhouette and pulmonary vessels appear normal. There is no pulmonary vascular redistribution, pleural effusion, or pneumothorax seen. 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 His been ill for the last 4 [...] Medications: (Selected) Documented Medications Documented A/Fish Oil 37501 u oral capsule: 0 Refill(s), Maintenance Aspir [...] 0 Refill(s), Maintenance albuterol: 2.5 mg, INH, O4Q-Ibyleueu, 0 Refill(s), Maintenance atorvastatin 10 mg oral [...] 13:03:45 PST, Stop Dt/Tm 02/14/22 13:03:45 PST Marketing Development Representative Consult: 02/14/22 17:58:35 PST, Reason for consult: Discern alert Intake and Output: 02/14/22 12:54:00 PST, B90X-Fhnltwfd, Strict K-Phos Neutral: = 1 Tab, ORAL, [...] PST, Per protocol SCD: 02/14/22 12:54:00 PST, F3Y-Nenvfbwv, While In Bed; Remove every 8 hours [...] PST, Q4H Weigh Patient: 02/14/22 12:54:00 PST, [id number] Zofran: 4 mg, IV PUSH, Q4H, PRN, [...] mL: 2 gm = 50 mL, IVPB, N88B-Oivqmzqf, PRN, Magnesium Replacement, IV SOLN, 02/14/22 12:51:00 [...] PST Lactic Acid/Lactate: 02/14/22 13:44:00 PST, ONCE, Amria Elena Priority: TS Rpt Priority: Timed Study, [...] 02/14/22 11:56:06 PST, RT, Routine, 02/14/22 11:56:06 /[place] POC Glucose Panel: Blood, Collected Y/N, 02/14/22 18:44:24 PST, RT, Routine, 02/14/22 18:44:24 /[place] POC Glucose Panel: Blood, Collected Y/N, 02/14/22 21:26:39 PST, RT, Routine, 02/14/22 21:26:39 /[place] POC Glucose Panel: Blood, Collected Y/N, 02/15/22 5:51:56 PST, RT, Routine, 02/15/22 5:51:56 /[place] Possible Sepsis: 02/14/22 11:38:08 PST, Stop Dt/Tm [...] point I believe requires hospitalization. Hospitalist notified, distribution specialist, consulted as well. After initial treatments, [...] GERD Plan Condition: Improved, Stable. Disposition: Admit. [id number] Male 02/14/2022 [facility] Discharge Summaries Results Value Date Source Discharge [...] Chito Leone RN, 02/19/2022 11:01:06 Conf # [id number] FARHAT, 02/19/2022 13:13:00 Dictation ID [id number] Male 02/19/2022 [facility] History and Physicals Results Value Date Source Hospitalist Admission H&P 02/14/2022 [facility] History and Physical Patient: ROGER FREDERICK Age: 76 years Legal Sex: MALE : 1945 Date of Service 02/14/2022 13:21 PST Chief Complaint Shortness of breath. History of Present Illness 76-year-old male with past medical history significant for hypertension, hyperlipidemia, type 2 diabetes mellitus, asthma, obstructive sleep apnea, gastroesophageal reflux disease presents [facility] emergency department complaint shortness of breath. Patient details that over the past 3 to 4 days he has been having progressive congestion, dry cough, mild shortness of breath. Patient details body aches. Patient also recently developed fevers. Patient details that his recently had an upper respiratory infection 4 days prior. Patient is visiting from [place]. Denies any chest pain. No abdominal pain [...] Bilateral: Upper extremity ( Capillary Refill Time (FURNACE PROCESS PLANT OPERATOR) returns in less than 2 seconds ), Lower extremity ( Capillary Refill Time (FURNACE PROCESS PLANT OPERATOR) returns in less than 2 seconds ). Gastrointestinal: Soft, Non-tender, Non-distended, Normal bowel sounds, No organomegaly. Genitourinary: No costovertebral angle tenderness. Lymphatics: No lymphadenopathy neck, axilla, groin. Musculoskeletal: Normal range of motion, Normal strength, No tenderness, No swelling, No deformity, Normal gait. Integumentary: Warm, Shively, Intact, No pallor, No rash. Neurologic: Alert, [...] 21:00:00 PST enoxaparin (Lovenox), 40 mg, SUBQ, A58U-Sjioamnx, Indication = VTE Prophylaxis, INJ, 02/14/22 13:00:00 [...] mL), 2 gm = 50 mL, IVPB, R48G-Nruwuksl, PRN, Magnesium Replacement, IV SOLN, 02/14/22 12:51:00 [...] PRN Lovenox, 40 mg, 0.4 mL, SUBQ, T67Q-Ekcfttjq magnesium oxide, 400 mg, 1 Tab, ORAL, BID, PRN magnesium sulfate 2 g in SWFI 50 mL, 2 gm, 50 mL, IVPB, E68W-Ljooyvhw, PRN potassium bicarbonate-citric acid, 20 mEq, 1 [...] IV PUSH, Q4H, PRN Home A/Fish Oil 42474 u oral capsule acetaminophen 650 mg rectal suppository, 650 mg, 1 Supp, RECTAL, Q4H, PRN acetaminophen 650 mg rectal suppository, 650 mg, 1 Supp, RECTAL, Q4H, PRN albuterol, 2.5 mg, INH, S5Q-Ltymuahn Aspir 81 oral enteric coated tablet, 81 [...] Influenza A. Tamiflu 75 mg twice daily 86639-5 Male 02/14/2022 [facility] Vital Signs Vital Sign Value Date Comments Source Pulse Oximetry 97 % 02/16/2022 60 [facility] Respiratory rate 18 br/min 02/16/2022 60 [facility] Peripheral Pulse Rate 87 bpm 02/16/2022 60 [facility] Pulse Oximetry 97 % 02/16/2022 60 [facility] Oxygen FiO2 21 % 02/16/2022 60 [facility] Respiratory rate 13 br/min 02/16/2022 60 [facility] Peripheral Pulse Rate 87 bpm 02/16/2022 60 [facility] Oxygen FiO2 21 % 02/16/2022 60 [facility] Pulse Oximetry 97 % 02/16/[address] [facility] Temperature (F) 98.7 [degF] 02/16/2022 60 [facility] Peripheral Pulse Rate 89 bpm 02/16/2022 60 [facility] Respiratory rate 18 br/min 02/16/2022 60 [facility] [place] Systolic BP 142 mm[Hg] 02/16/2022 60 [facility] Diastolic BP 82 mm[Hg] 02/16/2022 60 [facility] Oxygen FiO2 21 % 02/16/2022 60 [facility] Temperature (F) 98.0 [degF] 02/16/2022 60 [facility] Systolic BP 150 mm[Hg] 02/16/2022 60 [facility] Diastolic BP 78 mm[Hg] 02/16/2022 60 [facility] Weight (kg) 108.5 kg 02/16/2022 60 [facility] Temperature (F) 97.4 [degF] 02/16/2022 60 [facility] [place] Systolic BP 153 mm[Hg] 02/16/2022 60 [facility] Diastolic BP 91 mm[Hg] 02/16/2022 60 [facility] Oxygen flow 2 L/min 02/16/2022 60 [facility] Oxygen flow 2 L/min 02/16/2022 60 [facility] Oxygen flow 2 L/min 02/16/2022 60 [facility] Weight (kg) 109.9 kg 02/15/2022 60 [facility] HeightLength (cm) 175.24 cm 02/15/[address] [facility] [place] Weight (kg) 108 kg 02/15/2022 60 [facility] Body Mass Index 35.17 kg/m2 02/15/2022 60 [facility] [place] Dose calculation weight (kg) 108 kg 02/15/2022 60 [facility] Heart Rate Monitored 94 bpm 02/15/2022 60 [facility] [place] Heart Rate Monitored 88 bpm 02/14/2022 60 [facility] [place] Heart Rate Monitored 100 bpm 02/14/2022 60 [facility] [place] Mean BP 81 mm[Hg] 02/14/2022 [facility] Dose calculation weight (kg) 108 kg 02/14/2022 60 [facility] Encounters Location Location Details Encounter Type Encounter Number Reason For Visit Attending Provider ADM Date DC Date Status Source 60 60 [facility] Inpatient [id number] ACUTE HYPOXEMIC RESPIRATO RY FAILURE, INFLUENZA A Wilfredo Nikjoo 02/14 Active [facility] Procedures Procedure Code Date Perfomer Comments Source ROUTINE VENIPUNCTURE [id number] 02/16/2022 60 [facility] ROUTINE VENIPUNCTURE [id number] 02/15/2022 60 [facility] ROUTINE VENIPUNCTURE [id number] 02/15/2022 60 [facility] ROUTINE VENIPUNCTURE [id number] 02/14/2022 60 [facility] WITHDRAWAL OF ARTERIAL BLOOD [id number] 02/14/2022 60 [facility] [place] WITHDRAWAL OF ARTERIAL BLOOD [id number] 02/14/2022 60 [facility] [place] ROUTINE VENIPUNCTURE [id number] 02/14/2022 60 [facility] ROUTINE VENIPUNCTURE [id number] 02/14/2022 60 [facility] Plan of Care Plan of Care Date Source Extracted from:Title: Shortn ess of breath Author: MD Denise, Oren Ny Date: 02/14/22 Impression and Plan Diagnosis 1. Acute respiratory failure #2 acute influenza infection #3 hypertension #4 diabetes #5 history of dyslipidemia #6 history of asthma #7 history of GERD Plan Condition: Improved, Stable. Disposition: Admit. 02/16/2022 [facility] Maggie nathan Social History Social History Date Source Social History TypeResponse Smoking Status Is there a smoker in the household? No; *Do you have concerns about tobacco use in household? No; 4 or less cigarettes(less than 1/4 pack)/day in last 30 days; Never; *Are you ready to quit? N/A entered on: 02/14/22 Sex Male [facility] Social History TypeResponse Smoking Status Is there a smoker in the household? No; *Do you have concerns about tobacco use in household? No; 4 or less cigarettes(less than 1/4 pack)/day in last 30 days; Never; *Are you ready to quit? N/A entered on: 02/14/22 Sex Male [address] [place] [address] Maggie evans Social History TypeResponse Smoking Status Is there a smoker in the household? No; *Do you have concerns about tobacco use in household? No; 4 or less cigarettes(less than 1/4 pack)/day in last 30 days; Never; *Are you ready to quit? N/A entered on: 02/14/22 [facility] 61 [facility]
--- OUTSIDE RECORDS SUMMARY | 2023-09-22 17:04 | XMS_ITS | Clinical Summary ---
Author Organization [employer] [facility] Address [place], [place] [address] Care Team Providers Care Marine Underwriter Name Role Phone Tulio Ortiz MD Primary Care Provider [phone] Allergies Active Allergy Reactions Criticality Noted Date [...] per actuation) nasal solution (FLONASE) Inhale 1 [place] into both nostrils once daily. 1 Bottle [...] Comments Blood Pressure 131/82 01/25/2017 2:30 PM [employer] AGENT Pulse 87 01/25/2017 2:30 PM [employer] AGENT Temperature - - Respiratory Rate - - Oxygen Saturation 97% 01/25/2017 2:30 PM [employer] [facility] AGENT Inhaled Oxygen Concentration - - Weight - [...] season) 3 01/08/2021 Influenza for age 65+ 11/12/2023 Care Teams Marine Underwriter Relationship Specialty Start Date End Date Tulio Ortiz MD [address] [place] [address] PCP - General Family Practice 06/28/21
[2023-09-22 17:06] LABS: Appearance Urine Clear (Clear); Bilirubin Urine Negative (Negative); Blood Urine Negative (Negative); Color Urine Dark yellow (Yellow); Glucose Urine Negative (Negative); Ketones Urine Negative (Negative); Leukocyte Esterase Urine Negative (Negative); Nitrite Urine Negative (Negative); Protein Urine Negative (Negative); Urobilinogen Urine 0.2 (0.2-1.0)
[2023-09-22] MEDS: ONDANSETRON 2 MG/ML inj 4 MG IVP (17:08)
[2023-09-22] MEDS: MORPHINE 4 MG/ML INJ IVP (17:08)
[2023-09-22 17:12] LABS: Basophils Absolute Auto 0.04 K/uL (0.00-0.30); Basophils Percent Auto 0.6 % (0.0-3.0); Eosinophils Absolute Auto 0.33 K/uL (0.00-0.50); Eosinophils Percent Auto 5.1 % (0.0-7.0); Hematocrit 41.7 % (37.0-53.0); Hemoglobin* 13.7 gm/dL (13.5-17.5); Immature Granulocytes Pct Auto 1.5 %; Lymphocytes Percent Auto 17.8 % (20-44); Mean Corpuscular HGB Conc 33 gm/dL (32-36); Mean Corpuscular Hemoglobin 31 pg (26-34); Mean Corpuscular Volume 96 fL (80-100); Monocytes Percent Auto 9.2 % (0.0-11.0); Neutrophils Absolute Auto 4.28 K/uL (1.7-7.0); Neutrophils Percent Auto 65.8 % (42.0-72.0); Platelet Count* 184 K/uL (140-440); RDW Coefficient of Variation % 14.5 % (11.5-15.5); Red Blood Count 4.36 m/uL (4.30-5.90); White Blood Count* 6.51 K/uL (4.50-11.00)
[2023-09-22 17:13] LABS: RBC Urine 0-2 (0-2); WBC Urine 0-2 (0-5)
[2023-09-22 17:37] LABS: Chloride* 101 mmol/L (96-114); Potassium* 4.3 mmol/L (3.6-5.1); Sodium* 137 mmol/L (135-149)
[2023-09-22 17:39] LABS: Slide Review Reflex No
[2023-09-22 17:40] LABS: Creatinine* 1.6 mg/dL (0.5-1.5); Est. Creatinine Clearance* 38.66; Estimated Glomerular Filt Rate 44 ml/min
[2023-09-22 17:41] LABS: Anion Gap 11 mEq/L (7-15); Blood Urea Nitrogen* 30 mg/dL (7-30); Carbon Dioxide* 25 mmol/L (20-32); Glucose* 140 mg/dL (60-115)
[2023-09-22 17:45] LABS: C Reactive Protein* < 0.5 mg/dL (0.5-1.0)
== END 2023-09-22 20:48 | disposition home or self-care (01) ==
PROVIDERS: Emergency Provider Family Medicine; PCP Family Medicine
DX: N50.812 Left testicular pain (principal); I86.1 Scrotal varices
CPT/HCPCS: 36415; 76870; 80048; 81001; 85025; 86140; 93976; 94761; 99284; J2270; J2405

== ENCOUNTER 2023-10-23 09:47 | Emergency (ER) | payer BC, SELFPAY ==
[2023-10-23 10:04] VITALS: BP 97/55; PULSE 70; RESP 16; TEMP 36.7; O2SAT 96; BMI 32.8
--- NOTE | 2023-10-23 11:03 | CRLHL7_ITS ---
For Patients: As a result of the Century Cures Act, medical imaging exams and procedure reports are released immediately into your electronic medical record. You may view this report before your referring provider. If you have questions, please contact your health care provider. Indication: Epigastric pain radiating to the back for 3 days. Technique: CT of the abdomen and pelvis was performed following the administration of 109 mL Isovue 370. Comparison: 06/21/2021. Findings: Visualized lung bases: Minimal dependent atelectasis. Liver: Diffuse hepatic steatosis. Normal gallbladder. No biliary ductal dilation. Pancreas: Very minimal stranding adjacent to the pancreatic head. No pancreatic ductal dilation. Spleen: Borderline splenomegaly. Adrenals: Unremarkable. Kidneys: Too small to characterize hypodensity along the lower pole of the left kidney. No nephrolithiasis or hydronephrosis. Aorta/IVC: Moderate atherosclerotic aortic calcifications. Lymph nodes: No lymphadenopathy. Bowel: Nonobstructed bowel. Cecum is similar in position within the midline lower abdomen. Small bowel is predominantly located within the right hemiabdomen. Findings can in the setting of intestinal malrotation. Appendix is unremarkable. Bowel wall thickening and inflammatory stranding about the 1st and 2nd portion of the duodenum. No intraperitoneal free air or fluid. Pelvis: Partially decompressed bladder. Dystrophic prostate calcifications. Bones/body wall: Surgical clips along the right inguinal canal. Multilevel degenerative disc disease. Lower thoracic diffuse idiopathic skeletal hyperostosis. Grade 1 anterolisthesis of L4 on L5. Increased periumbilical soft tissue stranding. Impression: 1. Inflammatory changes along the proximal duodenum concerning for duodenitis/ulcer disease. There is trace adjacent stranding along the pancreatic head, which is favored to be reactive; however, early pancreatitis is not excluded. 2. Hepatic steatosis. 3. Increased periumbilical soft tissue stranding may represent infectious/inflammatory process. 4. Additional chronic/incidental findings as described. Please note that all CT scans at this facility use dose modulation, iterative reconstruction, and/or weight-based dosing when appropriate to reduce radiation dose to as low as reasonably achievable. Dictated by Benita Higgins MD @ 10/23/2023 12:36:44 PM (Electronically Signed)
--- OUTSIDE RECORDS SUMMARY | 2023-10-23 11:09 | XMS_ITS | Clinical Summary ---
Author Organization [employer] [facility] Address [place], [place] [address] Care Team Providers Care Medication Specialist Name Role Phone Tulio Ortiz MD Primary Care Provider [phone] Allergies Active Allergy Reactions Criticality Noted Date [...] per actuation) nasal solution (FLONASE) Inhale 1 [place] into both nostrils once daily. 1 Bottle [...] Comments Blood Pressure 131/82 01/25/2017 2:30 PM TANK HOOP BENDER Pulse 87 01/25/2017 2:30 PM TANK HO[employer] BENDER Temperature - - Respiratory Rate - - Oxygen Saturation 97% 01/25/2017 2:30 PM TANK HOOP BENDER Inhaled Oxygen Concentration - - Weight - [...] Influenza for age 65+ 11/12/2023 Care Teams Medication Specialist Relationship Specialty Start Date End Date Tulio Ortiz MD [address] [place] [address] PCP - General Family Practice 06/28/21
--- OUTSIDE RECORDS SUMMARY | 2023-10-23 11:09 | XMS_ITS | Continuity of Care Document ---
Author Name [facility] Organization [facility] Care Team Providers Care Cardiovascular Tech Name Role Phone [facility] Unavailable Unavailable Problems Problem Status Onset Date Classification Date Reported Comments Source Influenza due to other identified influe Active 02/14/2022 [facility] Acute respiratory failure with hypoxia Active 02/14/2022 [facility] Shortness of breath Active [facility] Medications Medication Details Route Status Patient Instructions Ordering Provider Order Date Source Tamiflu 75 mg oral capsule = 1 Cap, ORAL, BID, X 5 Day(s), # 10 Cap, 0 Refill(s), Acute, Pharmacy: [facility] #[id number], 175.24, cm, 02/14/22 17:56:00 PST, Height/Length (cm), 108, kg, 02/14/22 17:56:00 PST, Dose calculation weight (kg) Active 60 [facility] NovoLOG FlexPen 0 Refill(s), Maintenance Active 60 [facility] Semglee 70 mg evenings, 0 Refill(s), Maintenance Active 60 [facility] chlorthalidone 25 mg oral tablet = 1 Tab, ORAL, DAILY, 1/2 daily, 0 Refill(s), Maintenance Active 60 [facility] omeprazole 40 mg oral delayed release capsule 1 Cap, ORAL, DAILY, 0 Refill(s), Maintenance Active 60 [facility] fluticasone 50 mcg/inh inhalation powder 1 Puff, INH, BID, 0 Refill(s), Maintenance Active 60 [facility] fenofibrate 145 mg oral tablet = 1 Tab, ORAL, DAILY, 0 Refill(s), Maintenance Active 60 [facility] A/Fish Oil 43074 u oral capsule 0 Refill(s), Maintenance Active 60 [facility] albuterol 2.5 mg, INH, [id number], 0 Refill(s), Maintenance Active 60 [facility] Aspir 81 oral enteric coated tablet = 1 Tab, ORAL, DAILY, 0 Refill(s), Maintenance Active 60 [facility] atorvastatin 10 mg oral tablet = 1 Tab, ORAL, DAILY, 0 Refill(s), Maintenance Active 60 [facility] Results Order Name Results Value Reference Range Date Interpretation Comments Source AutoDiff* Auto Neutrophil Percent 90.5 % 49.4 - 72.6 02/16 H [facility] AutoDiff* Auto Neutrophil Absolute 9.5 K/uL 2.0 - 6.4 02/16 H [facility] AutoDiff* Auto Lymphocyte Percent 4.8 % 18.0 - 40.0 02/16 L [facility] AutoDiff* Auto Lymphocyte Absolute 0.5 K/uL 1.5 - 3.0 02/16 [facility] AutoDiff* Auto Monocyte Percent 4.7 % 4.9 - 10.1 02/16 [facility] AutoDiff* Auto Monocyte Absolute 0.5 K/uL 0.3 - 0.8 02/16 [facility] AutoDiff* Auto Eosinophil Percent 0.0 % 0.0 - 5.0 02/16 [facility] AutoDiff* Auto Eosinophil Absolute 0.0 K/uL 0.0 - 0.4 02/16 [facility] AutoDiff* Auto Basophil Percent 0.0 % 0.2 - 1.2 02/16 [facility] AutoDiff* Auto Basophil Absolute 0.0 K/uL 0.0 - 0.1 02/16 [facility] AutoDiff* Sex assigned at Male 02/16 [facility] CBC WBC 10.5 K/uL 3.7 - 10.5 02/16 [facility] CBC RBC 3.90 M/uL 3.81 - 5.87 02/16 NA [facility] CBC HGB 11.7 g/dL 12.0 - 17.9 02/16 L [facility] CBC HCT 34.3 % 34.4 - 50.2 02/16 L [facility] CBC MCV 88.0 fL 80.0 - 99.8 02/16 NA [facility] CBC MCH 29.9 pg 26.7 - 34.0 02/16 NA [facility] CBC MCHC 33.9 g/dL 31.0 - 37.0 02/16 NA [facility] CBC RDW 15.5 % 12.0 - 15.8 02/16 NA [facility] CBC PLT 146 K/uL 139 - 422 02/16 NA [facility] CBC MPV 9.00 fL 6.84 - 10.28 02/16 NA [facility] CBC Sex assigned at Male 02/16 NA [facility] CMP Sodium Level 132 MMOL/L 135 - 145 02/16 L [facility] CMP Potassium Level 4.1 MMOL/L 3.5 - 5.0 02/16 NA [facility] CMP Chloride Level 101 MMOL/L 101 - 111 02/16 NA [facility] CMP CO2/Carbon Dioxide 22 MMOL/L 24 - 32 02/16 L [facility] CMP Anion Gap 9.0 5.0 - 15.0 02/16 NA [facility] CMP Glucose, Random 316 MG/DL - <=200 02/16 H [facility] CMP BUN 34 MG/DL 8 - 20 02/16 H [facility] CMP Creatinine 1.39 MG/DL 0.60 - 1.30 02/16 H [facility] CMP BUN/Creat Ratio 24.5 12.0 - 20.0 02/16 H [facility] CMP Osmolality, Calculated 284 mOsm/L 02/16 [facility] Calcium Level 8.6 MG/DL 8.4 - 10.2 02/16 [facility] Total Protein 6.6 g/dL 6.4 - 8.3 02/16 [facility] Albumin Level 3.5 g/dL 3.2 - 5.5 02/16 [facility] Globulin Level 3.1 g/dL 1.5 - 3.5 02/16 NA [facility] A/G Ratio 1.1 1.1 - 2.2 02/16 NA [facility] ALP 35 IU/L 30 - 115 02/16 [facility] ALT 40 IU/L 5 - 36 02/16 H [facility] AST 50 IU/L 10 - 42 02/16 H [facility] Bilirubin, Total 0.6 MG/DL 0.2 - 1.2 02/16 [facility] GFR - Non 53 mL/min/1.7 3m2 >=61 [...] 18 or greater, not for pediatric patients. [facility] GFR - 64 mL/min/1.7 3m2 >=61 02/16 [facility] Sex assigned at Male 02/16 NA [facility] Mg Magnesium Level 2.2 MG/DL 1.7 - 2.8 02/16 NA [facility] Mg Sex assigned at Male 02/16 NA [facility] Phos Phosphorus Level 2.8 MG/DL 2.5 - 4.5 02/16 NA [facility] Phos Sex assigned at Male 02/16 NA [facility] AutoDiff* Auto Neutrophil Percent 89.9 % 49.4 - 72.6 02/15 H [facility] AutoDiff* Auto Neutrophil Absolute 8.5 K/uL 2.0 - 6.4 02/15 H [facility] AutoDiff* Auto Lymphocyte Percent 5.1 % 18.0 - 40.0 02/15 L [facility] AutoDiff* Auto Lymphocyte Absolute 0.5 K/uL 1.5 - 3.0 02/15 L [facility] AutoDiff* Auto Monocyte Percent 5.0 % 4.9 - 10.1 02/15 NA [facility] AutoDiff* Auto Monocyte Absolute 0.5 K/uL 0.3 - 0.8 02/15 NA [facility] AutoDiff* Auto Eosinophil Percent 0.0 % 0.0 - 5.0 02/15 NA [facility] AutoDiff* Auto Eosinophil Absolute 0.0 K/uL 0.0 - 0.4 02/15 NA [facility] AutoDiff* Auto Basophil Percent 0.0 % 0.2 - 1.2 02/15 L [facility] AutoDiff* Auto Basophil Absolute 0.0 K/uL 0.0 - 0.1 02/15 NA [facility] AutoDiff* Sex assigned at Male 02/15 NA [facility] CBC WBC 9.4 K/uL 3.7 - 10.5 02/15 NA [facility] CBC RBC 3.91 M/uL 3.81 - 5.87 02/15 NA [facility] CBC HGB 11.6 g/dL 12.0 - 17.9 02/15 L [facility] CBC HCT 34.9 % 34.4 - 50.2 02/15 NA [facility] CBC MCV 89.4 fL 80.0 - 99.8 02/15 NA [facility] CBC MCH 29.6 pg 26.7 - 34.0 02/15 NA [facility] CBC MCHC 33.2 g/dL 31.0 - 37.0 02/15 NA [facility] CBC RDW 15.5 % 12.0 - 15.8 02/15 NA [facility] CBC PLT 123 K/uL 139 - 422 02/15 L [facility] CBC MPV 9.30 fL 6.84 - 10.28 02/15 NA [facility] CBC Sex assigned at Male 02/15 NA [facility] CMP Sodium Level 136 MMOL/L 135 - 145 02/15 NA [facility] CMP Potassium Level 4.5 MMOL/L 3.5 - 5.0 02/15 NA [facility] CMP Chloride Level 104 MMOL/L 101 - 111 02/15 NA [facility] CMP CO2/Carbon Dioxide 24 MMOL/L 24 - 32 02/15 NA [facility] CMP Anion Gap 8.0 5.0 - 15.0 02/15 NA [facility] CMP Glucose, Random 302 MG/DL - <=200 02/15 H [facility] CMP BUN 27 MG/DL 8 - 20 02/15 H [facility] CMP Creatinine 1.59 MG/DL 0.60 - 1.30 02/15 H [facility] CMP BUN/Creat Ratio 17.0 12.0 - 20.0 02/15 [facility] CMP Osmolality, Calculated 288 mOsm/L 02/15 NA [facility] CMP Calcium Level 8.7 MG/DL 8.4 - 10.2 02/15 [facility] CMP Total Protein 6.6 g/dL 6.4 - 8.3 02/15 [facility] CMP Albumin Level 3.6 g/dL 3.2 - 5.5 02/15 NA [facility] CMP Globulin Level 3.0 g/dL 1.5 - 3.5 02/15 NA [facility] CMP A/G Ratio 1.2 1.1 - 2.2 02/15 NA [facility] CMP ALP 36 IU/L 30 - 115 02/15 NA [facility] CMP ALT 44 IU/L 5 - 36 02/15 H [facility] CMP AST 58 IU/L 10 - 42 02/15 H [facility] CMP Bilirubin, Total 0.5 MG/DL 0.2 - 1.2 02/15 [facility] GFR - Non 45 mL/min/1.7 3m2 >=61 [...] 18 or greater, not for pediatric patients. [facility] CMP Sex assigned at Male 02/15 [facility] CMP GFR - 55 mL/min/1.7 3m2 >=61 02/15 L [facility] Mg Magnesium Level 2.0 MG/DL 1.7 - 2.8 02/15 NA [facility] Mg Sex assigned at Male 02/15 NA [facility] Phos Phosphorus Level 2.4 MG/DL 2.5 - 4.5 02/15 L [facility] Phos Sex assigned at Male 02/15 NA [facility] Lactic Lactic Acid Level 2.3 MMOL/L 0.5 - 2.2 02/15 H [facility] Lactic Sex assigned at Male 02/15 NA [facility] Lactic Lactic Acid Level 2.8 MMOL/L 0.5 - 2.2 02/14 H [facility] Lactic Sex assigned at Male 02/14 NA [facility] POC G3+ Art ABG - pH 7.441 7.350 - 7.450 02/14 NA Device Code: 60 iSTAT EDFacility: [id number]: 60 ERSerial Number: [id number] Code: [id number] rator Name: Carroll TerrellTiesha e Lot: [id number] [facility] POC G3+ Art ABG - pO2 71 mmHg 80 - 105 02/14 L [facility] POC G3+ Art ABG - pCO2 33 mmHg 35 - 45 02/14 L [facility] POC G3+ Art ABG - HCO3 22.4 MEQ/L 22.0 - 26.0 02/14 NA [facility] POC G3+ Art ABG - TCO2 23 MEQ/L 23 - 27 02/14 NA [facility] POC G3+ Art ABG - BE -2.0 MEQ/L -2.0 - 3.0 02/14 NA [facility] POC G3+ Art ABG - O2 Sat 95.0 % 95.0 - 99.0 02/14 NA [facility] POC G3+ Art BG - Modified Juan Test PASS 02/14 NA [facility] POC G3+ Art BG - Site RRAD 02/14 NA [facility] POC G3+ Art FIO2 28 % 02/14 NA [facility] POC G3+ Art BG - O2 Device NC 02/14 NA [facility] POC G3+ Art BG - Oxygen Flow 2.0 L/min 02/14 NA [facility] POC G3+ Art BG - Patient Rate 22 br/min 02/14 NA [facility] POC G3+ Art BG - Pulse Oximetry 94 % 02/14 NA [facility] POC G3+ Art Sex assigned at Male 02/14 NA [facility] CRP CRP C-Reactive Protein 12.60 MG/DL 0.00 - 0.90 02/14 H [facility] CRP Sex assigned at Male 02/14 [facility] DDimerQnt D-Dimer, Qnt 0.45 ZZ [...] 65 0.65mg/L FEU 70 0.70mg/L FEU Etc. [facility] DDimerQnt Sex assigned at Male 02/14 [facility] PCT Procalcitoni n Level 0.47 NG/ML - <=0.50 02/14 NA [facility] PCT Sex assigned at Male 02/14 NA [facility] AutoDiff* Auto Neutrophil Percent 85.8 % 49.4 - 72.6 02/14 H [facility] AutoDiff* Auto Neutrophil Absolute 7.2 K/uL 2.0 - 6.4 02/14 H [facility] AutoDiff* Auto Lymphocyte Percent 3.8 % 18.0 - 40.0 02/14 L [facility] AutoDiff* Auto Lymphocyte Absolute 0.3 K/uL 1.5 - 3.0 02/14 L [facility] AutoDiff* Auto Monocyte Percent 9.4 % 4.9 - 10.1 02/14 NA [facility] AutoDiff* Auto Monocyte Absolute 0.8 K/uL 0.3 - 0.8 02/14 NA [facility] AutoDiff* Auto Eosinophil Percent 0.5 % 0.0 - 5.0 02/14 NA [facility] AutoDiff* Auto Eosinophil Absolute 0.0 K/uL 0.0 - 0.4 02/14 NA [facility] AutoDiff* Auto Basophil Percent 0.5 % 0.2 - 1.2 02/14 NA [facility] AutoDiff* Auto Basophil Absolute 0.0 K/uL 0.0 - 0.1 02/14 NA [facility] AutoDiff* Sex assigned at Male 02/14 NA [facility] CBC WBC 8.4 K/uL 3.7 - 10.5 02/14 NA [facility] CBC RBC 4.24 M/uL 3.81 - 5.87 02/14 NA [facility] CBC HGB 12.6 g/dL 12.0 - 17.9 02/14 [facility] CBC HCT 37.7 % 34.4 - 50.2 02/14 NA [facility] CBC MCV 88.9 fL 80.0 - 99.8 02/14 NA [facility] CBC MCH 29.7 pg 26.7 - 34.0 02/14 NA [facility] CBC MCHC 33.3 g/dL 31.0 - 37.0 02/14 NA [facility] CBC RDW 15.3 % 12.0 - 15.8 02/14 NA [facility] CBC PLT 138 K/uL 139 - 422 02/14 L [facility] CBC MPV 8.60 fL 6.84 - 10.28 02/14 NA [facility] CBC Sex assigned at Male 02/14 NA [facility] CMP Sodium Level 134 MMOL/L 135 - 145 02/14 L [facility] CMP Potassium Level 3.6 MMOL/L 3.5 - 5.0 02/14 NA [facility] CMP Chloride Level 100 MMOL/L 101 - 111 02/14 L [facility] CMP CO2/Carbon Dioxide 25 MMOL/L 24 - 32 02/14 NA [facility] CMP Anion Gap 9.0 5.0 - 15.0 02/14 NA [facility] CMP Glucose, Random 125 MG/DL - <=200 02/14 NA [facility] CMP BUN 19 MG/DL 8 - 20 02/14 NA [facility] CMP Creatinine 1.52 MG/DL 0.60 - 1.30 02/14 H [facility] CMP BUN/Creat Ratio 12.5 12.0 - 20.0 02/14 [facility] CMP Osmolality, Calculated 272 mOsm/L 02/14 [facility] CMP Calcium Level 9.1 MG/DL 8.4 - 10.2 02/14 NA [facility] CMP Total Protein 7.2 g/dL 6.4 - 8.3 02/14 NA [facility] CMP Albumin Level 4.1 g/dL 3.2 - 5.5 02/14 NA [facility] CMP Globulin Level 3.1 g/dL 1.5 - 3.5 02/14 NA [facility] CMP A/G Ratio 1.3 1.1 - 2.2 02/14 NA [facility] CMP ALP 45 IU/L 30 - 115 02/14 NA [facility] CMP ALT 53 IU/L 5 - 36 02/14 H [facility] CMP AST 79 IU/L 10 - 42 02/14 H [facility] CMP Bilirubin, Total 0.8 MG/DL 0.2 - 1.2 02/14 NA [facility] CMP GFR - Non 48 mL/min/1.7 3m2 [...] 18 or greater, not for pediatric patients. [facility] CMP Sex assigned at Male 02/14 NA [facility] CMP GFR - 58 mL/min/1.7 3m2 >=61 02/14 L [facility] Lactic WB Lactic Acid WB 2.17 MMOL/L 0.56 - 1.39 02/14 H [facility] Lactic WB Sex assigned at Male 02/14 NA [facility] Trop Troponin I 0.03 NG/ML 0.00 - [...] infarction and other causes of myocardial damage. [facility] Trop Sex assigned at Male 02/14 NA [facility] C Blood C Blood Final:No growth at 5 days.Sex assigned at :Male 02/14 Performed at: [facility], [address] [place] [id number], Design Engineering Specialist: Doc Jones M.D. [facility] [id number] SARS-CoV-2 Source Mckay oakley 02/14 NA [facility] [id number] Influenza A Agn Molecular Detected Not Detected 02/14 C NOTIFIED TO DIPTI GROVE RN AT 02/14/2022 12:13 BY TC, CLS.This test is performed using a real-time PCR [...] determined. Re-collection is recommended if clinically indicated [facility] [id number] Influenza B Agn Molecular Not Detected Not Detected 02/14 NA Assay performed by RT-PCR [facility] [id number] SARS-CoV-2 Molecular Not Detected Not Detected 02/14 NA Assay performed by RT-PCRThis test was performed under U.S. Food and Drug Administratio n (FDA) Emergency use Authorization (EUA). This test has been validated but [facility] this validation is [facility]. [facility] [id number] SARS-CoV-2 First test? No 02/14 NA [facility] [id number] Health Care Worker? No 02/14 NA [facility] [id number] SARS-CoV-2 Is the Patient Hospitalized ? No 02/14 NA [facility] [id number] SARS-CoV-2 Is the Patient in ICU? No 02/14 NA [facility] [id number] Patient From [facility] Area? No 02/14 NA [facility] [id number] Symptomatic per CDC? Yes 02/14 [facility] [id number] SARS-CoV-2 Is the Patient ? No 02/14 NA [facility] [id number] Sex assigned at Male 02/14 [facility] RSV Molc Respiratory Syncytial Virus [...] determined. Re-collection is recommended if clinically indicated. [facility] RSV Molc Sex assigned at Male 02/14 [facility] Diagnostic Reports Report Value Date Source Chest 1 Vw Portable INDICATION: Shortnes s of Breath COMPARISON: None. FINDINGS: The lungs are well expanded and clear, and the cardiac silhouette and pulmonary vessels appear normal. There is no pulmonary vascular redistribution, pleural effusion, or pneumothorax seen. Signed by: Sean Beverly MD on 02/14/2022 12:11 PM 02/14/2022 [facility] Consultation Notes Results Value Date Source Hospitalist [...] mL: 2 gm = 50 mL, IVPB, [id number], PRN, Magnesium Replacement, IV SOLN, 02/14/22 12:51:00 [...] 108, kg Documented Medications Documented A/Fish Oil 72657 u oral capsule: 0 Refill(s), Maintenance Aspir 81 oral enteric coated tablet: = 1 Tab, ORAL, DAILY, 0 Refill(s), Maintenance NovoLOG FlexPen: 0 Refill(s), Maintenance Semglee: 70 mg evenings, 0 Refill(s), Maintenance albuterol: 2.5 mg, INH, [id number], 0 Refill(s), Maintenance atorvastatin 10 mg oral [...] / SWFI 2 gm 50 mL, IVPB, [id number] ondansetron 2 mg/mL, 2 mL Inj 4 mg 2 mL, IV PUSH, Q4H potassium chloride 10 mEq 100 mL, IVPB, As directed Problem list: All Problems Current smoker / [id number] / Confirmed Ineffective breathing pattern / [id number] / Provisional Manage infection control / [id number] / Provisional Physical Examination Vital Signs 02/16/2022 [...] Rabin Signed on: 16-Feb-2022 10:32 PST 02/16/2022 [facility] Progress Note Patient: ROGER FREDERICK Age: [...] mL: 2 gm = 50 mL, IVPB, [id number], PRN, Magnesium Replacement, IV SOLN, 02/14/22 12:51:00 [...] 108, kg Documented Medications Documented A/Fish Oil 66655 u oral capsule: 0 Refill(s), Maintenance Aspir 81 oral enteric coated tablet: = 1 Tab, ORAL, DAILY, 0 Refill(s), Maintenance NovoLOG FlexPen: 0 Refill(s), Maintenance Semglee: 70 mg evenings, 0 Refill(s), Maintenance albuterol: 2.5 mg, INH, [id number], 0 Refill(s), Maintenance atorvastatin 10 mg oral [...] / SWFI 2 gm 50 mL, IVPB, [id number] ondansetron 2 mg/mL, 2 mL Inj 4 mg 2 mL, IV PUSH, Q4H potassium chloride 10 mEq 100 mL, IVPB, As directed Problem list: All Problems Current smoker / [id number] / Confirmed Ineffective breathing pattern / [id number] / Provisional Manage infection control / [id number] / Provisional Physical Examination Vital Signs 02/16/2022 [...] patient's response to treatment DC home soon [id number] Male 02/16/2022 [facility] Critical care medicine [facility] Progress note Patient: ROGER FREDERICK Age: [...] mL: 2 gm = 50 mL, IVPB, [id number], PRN, Magnesium Replacement, IV SOLN, 02/14/22 12:51:00 [...] 108, kg Documented Medications Documented A/Fish Oil 15563 u oral capsule: 0 Refill(s), Maintenance Aspir 81 oral enteric coated tablet: = 1 Tab, ORAL, DAILY, 0 Refill(s), Maintenance NovoLOG FlexPen: 0 Refill(s), Maintenance Semglee: 70 mg evenings, 0 Refill(s), Maintenance albuterol: 2.5 mg, INH, [id number], 0 Refill(s), Maintenance atorvastatin 10 mg oral [...] 19:40 PST) OXYDELIVERY Nasal cannula Nasal Nasal (DEC 06 15:48 PST) (FEB 14 20:00 PST) (FEB [...] mL: 2 gm = 50 mL, IVPB, [id number], PRN, Magnesium Replacement, IV SOLN, 02/14/22 12:51:00 [...] 108, kg Documented Medications Documented A/Fish Oil 61380 u oral capsule: 0 Refill(s), Maintenance Aspir 81 oral enteric coated tablet: = 1 Tab, ORAL, DAILY, 0 Refill(s), Maintenance NovoLOG FlexPen: 0 Refill(s), Maintenance Semglee: 70 mg evenings, 0 Refill(s), Maintenance albuterol: 2.5 mg, INH, [id number], 0 Refill(s), Maintenance atorvastatin 10 mg oral [...] Vijay Signed on: 15-Feb-2022 18:43 PST 02/16/2022 60 [facility] Critical Care Progress Note Patient: ROGER FREDERICK [...] mL: 2 gm = 50 mL, IVPB, [id number], PRN, Magnesium Replacement, IV SOLN, 02/14/22 12:51:00 [...] 108, kg Documented Medications Documented A/Fish Oil 18485 u oral capsule: 0 Refill(s), Maintenance Aspir 81 oral enteric coated tablet: = 1 Tab, ORAL, DAILY, 0 Refill(s), Maintenance NovoLOG FlexPen: 0 Refill(s), Maintenance Semglee: 70 mg evenings, 0 Refill(s), Maintenance albuterol: 2.5 mg, INH, [id number], 0 Refill(s), Maintenance atorvastatin 10 mg oral [...] mL: 2 gm = 50 mL, IVPB, [id number], PRN, Magnesium Replacement, IV SOLN, 02/14/22 12:51:00 [...] 108, kg Documented Medications Documented A/Fish Oil 64906 u oral capsule: 0 Refill(s), Maintenance Aspir 81 oral enteric coated tablet: = 1 Tab, ORAL, DAILY, 0 Refill(s), Maintenance NovoLOG FlexPen: 0 Refill(s), Maintenance Semglee: 70 mg evenings, 0 Refill(s), Maintenance albuterol: 2.5 mg, INH, [id number]-Yasmjaam, 0 Refill(s), Maintenance atorvastatin 10 mg oral [...] 1 Cap, ORAL, DAILY, 0 Refill(s), Maintenance. [id number] Male 02/16/2022 [facility] Patient: ROGER FREDERICK Age: [...] mL: 2 gm = 50 mL, IVPB, [id number], PRN, Magnesium Replacement, IV SOLN, 02/14/22 12:51:00 [...] 108, kg Documented Medications Documented A/Fish Oil 25969 u oral capsule: 0 Refill(s), Maintenance Aspir 81 oral enteric coated tablet: = 1 Tab, ORAL, DAILY, 0 Refill(s), Maintenance NovoLOG FlexPen: 0 Refill(s), Maintenance Semglee: 70 mg evenings, 0 Refill(s), Maintenance albuterol: 2.5 mg, INH, X7P-Dsixsagb, 0 Refill(s), Maintenance atorvastatin 10 mg oral [...] / SWFI 2 gm 50 mL, IVPB, X23L-Vjonjujj ondansetron 2 mg/mL, 2 mL Inj 4 mg 2 mL, IV PUSH, Q4H potassium chloride 10 mEq 100 mL, IVPB, As directed Problem list: All Problems Current smoker / [id number] / Confirmed Manage infection control / [id number] / Provisional Physical Examination Vital Signs 02/15/2022 [...] (FEB 15 00:40 PST) SpO2 96 (FEB 15:50 PST) 90 (FEB 14 11:21 PST) 99 [...] will depend to patient's response to treatment 05081-3 Male 02/15/2022 [facility] Consult note Patient: ROGER FREDERICK Age: 76 years Legal Sex: Male : 1945 Author: MD Ortiz Vijay Basic Information Provider information/ cc: Physicians Involved With Care ?? Admitting: ? MD Main Atefeh ?? Attending: ? Kalantary, MD, Atefeh ?? Consulting: ? MD Angel, Jeronimo ?? Primary Care: ??? NONE, . Acute hypoxic respiratory failure/influenza A tracheobronchitis/asthma exacerbation Chief Complaint Increasing cough congestion fever shortness of breath History of Present Illness The patient is a 36-year-old male with possible history of asthma/OSAS/DM2/hypertension hyperlipidemia obesity admitted with increasing cough shortness of breath chest congestion for last 4 to 5 days and now with fevers and body aches. He is [facility]. Laboratory work-up in the ER with [...] medications: Home Medications (12) Active A/Fish Oil 88621 u oral capsule ?(Documented?02/14/22) acetaminophen 650 mg rectal suppository 650 mg = 1 Supp, PRN, RECTAL, Q4H?(Documented?02/14/22) acetaminophen 650 mg rectal suppository 650 mg = 1 Supp, PRN, RECTAL, Q4H?(Documented?02/14/22) albuterol 2.5 mg, INH, C8V-Moemqqxc?(Documented?02/14) Aspir 81 oral enteric coated tablet 81 [...] mL: 2 gm = 50 mL, IVPB, E94E-Lzlsezel, PRN, Magnesium Replacement, IV SOLN, 02/14/22 12:51:00 [...] 108, kg Documented Medications Documented A/Fish Oil 39743 u oral capsule: 0 Refill(s), Maintenance Aspir [...] 0 Refill(s), Maintenance albuterol: 2.5 mg, INH, B4K-Rwpigtzn, 0 Refill(s), Maintenance atorvastatin 10 mg oral [...] in SWFI 50 mL) 2 gm IVPB F07A-Amhvftuw ondansetron (Zofran) 4 mg IV PUSH Q4H [...] would you like me to No *Is Nondenominational/Spirituality/Tavia important to you as you cope No [...] (FEB 14 13:21 PST) OXYFIO2 28 (FEB 14:21 PST) 28 (FEB 14 13:07 PST) 28 (FEB 14 13:07 PST) OXYFLOW 2 (FEB 14:40 PST) 2 (FEB 14:23 PST) 2 (FEB 14:23 PST) OXYDELIVERY Nasal cannula Room a Room a (FEB 14:40 PST) (FEB 14: PST) (FEB 14: PST) . General: Alert [...] Vijay Signed on: 15-Feb-2022 18:26 PST 02/15/2022 60 [facility] Consultation Patient: ROGER FREDERICK Age: 76 years [...] with fevers and body aches. He is [facility]. Laboratory work-up in the ER with [...] medications: Home Medications (12) Active A/Fish Oil 23586 u oral capsule (Documented 02/14/22) acetaminophen 650 mg rectal suppository 650 mg = 1 Supp, PRN, RECTAL, Q4H (Documented 02/14/22) acetaminophen 650 mg rectal suppository 650 mg = 1 Supp, PRN, RECTAL, Q4H (Documented 02/14/22) albuterol 2.5 mg, INH, M2D-Zvqbrwuw (Documented 02/14/22) Aspir 81 oral enteric coated [...] mL: 2 gm = 50 mL, IVPB, H74Z-Myxeqnwm, PRN, Magnesium Replacement, IV SOLN, 02/14/22 12:51:00 [...] 108, kg Documented Medications Documented A/Fish Oil 02181 u oral capsule: 0 Refill(s), Maintenance Aspir [...] 0 Refill(s), Maintenance albuterol: 2.5 mg, INH, K3B-Ktvquotb, 0 Refill(s), Maintenance atorvastatin 10 mg oral [...] in SWFI 50 mL) 2 gm IVPB V92Q-Bdetwqjg ondansetron (Zofran) 4 mg IV PUSH Q4H [...] would you like me to No *Is Nondenominational/Spirituality/Tavia important to you as you cope No [...] use compliant DVT/PUD prophylaxis Condition prognosis guarded 38431-5 Male 02/15/2022 [facility] History and Physical Examination Patient: ROGER FREDERICK ? Age: 76 years?Legal Sex: MALE?: 1945 Date of Service 02/14/2022 13:21 PST Chief Complaint Shortness of breath. History of Present Illness 76-year-old male with past medical history significant for hypertension, hyperlipidemia, type 2 diabetes mellitus, asthma, obstructive sleep apnea, gastroesophageal reflux disease presents [facility] emergency department complaint shortness of breath.? Patient details that over the past 3 to 4 days he has been having progressive congestion, dry cough, mild shortness of breath.? Patient details body aches.? Patient also recently developed fevers.? Patient details that his recently had an upper respiratory infection 4 days prior.? Patient is visiting from [place].? Denies any chest pain.? No abdominal pain [...] Bilateral: Upper extremity ( Capillary Refill Time (SLIP MAKER) returns in less than 2 seconds ), Lower extremity ( Capillary Refill Time (SLIP MAKER) returns in less than 2 seconds ). ? Gastrointestinal: ?Soft, Non-tender, Non-distended, Normal bowel sounds, No organomegaly. ? Genitourinary: ?No costovertebral angle tenderness. Lymphatics: ?No lymphadenopathy neck, axilla, groin. ? Musculoskeletal: ?Normal range of motion, Normal strength, No tenderness, No swelling, No deformity, Normal gait. ? Integumentary: ?Warm, Marine, Intact, No pallor, No rash. ? Neurologic: [...] 21:00:00 PST enoxaparin (Lovenox), 40 mg, SUBQ, N53E-Yloyxcck, Indication = VTE Prophylaxis, INJ, 02/14/22 13:00:00 [...] mL), 2 gm = 50 mL, IVPB, W35N-Drvgkhsd, PRN, Magnesium Replacement, IV SOLN, 02/14/22 12:51:00 [...] PRN Lovenox, 40 mg, 0.4 mL, SUBQ, N96M-Hvyamoit magnesium oxide, 400 mg, 1 Tab, ORAL, BID, PRN magnesium sulfate 2 g in SWFI 50 mL, 2 gm, 50 mL, IVPB, O59Y-Tfwapnlj, PRN potassium bicarbonate-citric acid, 20 mEq, 1 [...] IV PUSH, Q4H, PRN Home A/Fish Oil 96259 u oral capsule acetaminophen 650 mg rectal suppository, 650 mg, 1 Supp, RECTAL, Q4H, PRN acetaminophen 650 mg rectal suppository, 650 mg, 1 Supp, RECTAL, Q4H, PRN albuterol, 2.5 mg, INH, Z5D-Ijbngbyf Aspir 81 oral enteric coated tablet, 81 [...] Armen Signed on: 14-Feb-2022 13:56 PST 02/14/2022 60 [facility] Portable XR Chest AP single view INDICATION: Shortness of Breath COMPARISON: None. FINDINGS: The lungs are well expanded and clear, and the cardiac silhouette and pulmonary vessels appear normal. There is no pulmonary vascular redistribution, pleural effusion, or pneumothorax seen. 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 His been ill for the last 4 [...] Medications: (Selected) Documented Medications Documented A/Fish Oil 83531 u oral capsule: 0 Refill(s), Maintenance Aspir [...] 0 Refill(s), Maintenance albuterol: 2.5 mg, INH, A6F-Shskgfvq, 0 Refill(s), Maintenance atorvastatin 10 mg oral [...] 13:03:45 PST, Stop Dt/Tm 02/14/22 13:03:45 PST [employer] Consult: 02/14/22 17:58:35 PST, Reason for consult: Discern alert Intake and Output: 02/14/22 12:54:00 PST, R32Z-Wntiplse, Strict K-Phos Neutral: = 1 Tab, ORAL, [...] PST, Per protocol SCD: 02/14/22 12:54:00 PST, R3P-Vylskhej, While In Bed; Remove every 8 hours [...] PST, Q4H Weigh Patient: 02/14/22 12:54:00 PST, [id number] Zofran: 4 mg, IV PUSH, Q4H, PRN, [...] mL: 2 gm = 50 mL, IVPB, S68Z-Yfepfxvq, PRN, Magnesium Replacement, IV SOLN, 02/14/22 12:51:00 [...] 02/14/22 11:56:06 PST, RT, Routine, 02/14/22 11:56:06 /[place] [facility] Glucose Panel: Blood, Collected Y/N, 02/14/22 18:44:24 PST, RT, Routine, 02/14/22 18:44:24 /[place] [facility] Glucose Panel: Blood, Collected Y/N, 02/14/22 21:26:39 PST, RT, Routine, 02/14/22 21:26:39 /[place] [facility] Glucose Panel: Blood, Collected Y/N, 02/15/22 5:51:56 PST, RT, Routine, 02/15/22 5:51:56 [place] Possible Sepsis: 02/14/22 11:38:08 PST, Stop Dt/Tm [...] mg/dL Normal Lactic Acid WB 2.17 mmol/L MD 02/14/2022 11:36 PST Influenza A Agn Molecular Detected Influenza B Agn Molecular Not Detected Patient From [facility] Area? No SARS-CoV-2 Molecular Not [...] point I believe requires hospitalization. Hospitalist notified, cash applications specialist, consulted as well. After initial treatments, [...] GERD Plan Condition: Improved, Stable. Disposition: Admit. 91422-0 Male 02/14/2022 [facility] Discharge Summaries Results Value Date Source Discharge [...] Chito Leone RN, 02/19/2022 11:01:06 Conf # [id number] Sarah DOUGHERTY, 02/19/2022 13:13:00 Dictation ID [id number] Male 02/19/2022 [facility] History and Physicals Results Value Date Source Hospitalist Admission H&P 02/14/2022 [facility] History and Physical Patient: ROGER FREDERICK Age: 76 years Legal Sex: MALE : 1945 Date of Service 02/14/2022 13:21 [facility] Chief Complaint Shortness of breath. History of Present Illness 76-year-old male with past medical history significant for hypertension, hyperlipidemia, type 2 diabetes mellitus, asthma, obstructive sleep apnea, gastroesophageal reflux disease presents [facility] emergency department complaint shortness of breath. Patient details that over the past 3 to 4 days he has been having progressive congestion, dry cough, mild shortness of breath. Patient details body aches. Patient also recently developed fevers. Patient details that his recently had an upper respiratory infection 4 days prior. Patient is visiting from [place]. Denies any chest pain. No abdominal pain [...] Bilateral: Upper extremity ( Capillary Refill Time (SLIP MAKER) returns in less than 2 seconds ), Lower extremity ( Capillary Refill Time (SLIP MAKER) returns in less than 2 seconds ). Gastrointestinal: Soft, Non-tender, Non-distended, Normal bowel sounds, No organomegaly. Genitourinary: No costovertebral angle tenderness. Lymphatics: No lymphadenopathy neck, axilla, groin. Musculoskeletal: Normal range of motion, Normal strength, No tenderness, No swelling, No deformity, Normal gait. Integumentary: Warm, Marine, Intact, No pallor, No rash. Neurologic: Alert, [...] 21:00:00 PST enoxaparin (Lovenox), 40 mg, SUBQ, V71F-Ojgjquhe, Indication = VTE Prophylaxis, INJ, 02/14/22 13:00:00 [...] mL), 2 gm = 50 mL, IVPB, P76K-Skilnesj, PRN, Magnesium Replacement, IV SOLN, 02/14/22 12:51:00 [...] PRN Lovenox, 40 mg, 0.4 mL, SUBQ, F17Q-Bzbfkypu magnesium oxide, 400 mg, 1 Tab, ORAL, BID, PRN magnesium sulfate 2 g in SWFI 50 mL, 2 gm, 50 mL, IVPB, F11I-Xnilkquc, PRN potassium bicarbonate-citric acid, 20 mEq, 1 [...] IV PUSH, Q4H, PRN Home A/Fish Oil 50613 u oral capsule acetaminophen 650 mg rectal suppository, 650 mg, 1 Supp, RECTAL, Q4H, PRN acetaminophen 650 mg rectal suppository, 650 mg, 1 Supp, RECTAL, Q4H, PRN albuterol, 2.5 mg, INH, V8H-Wyvyxysu Aspir 81 oral enteric coated tablet, 81 [...] Influenza A. Tamiflu 75 mg twice daily 51192-3 Male 02/14/2022 [facility] Vital Signs Vital Sign Value Date Comments Source Pulse Oximetry 97 % 02/16/2022 60 [facility] Respiratory rate 18 br/min 02/16/2022 60 [facility] Peripheral Pulse Rate 87 bpm 02/16/2022 60 [facility] Pulse Oximetry 97 % 02/16/2022 60 [facility] Oxygen FiO2 21 % 02/16/2022 60 [facility] Respiratory rate 13 br/min 02/16/2022 60 [facility] [place] Peripheral Pulse Rate 87 bpm 02/16/2022 60 [facility] O[facility] FiO2 21 % 02/16/2022 60 [facility] Pulse Oximetry 97 % 02/16/2022 [facility] Temperature (F) 98.7 [degF] 02/16/2022 60 [facility] [place] Peripheral Pulse Rate 89 bpm 02/16/2022 60 [facility] Respiratory rate 18 br/min 02/16/2022 60 [facility] [place] Systolic BP 142 mm[Hg] 02/16/2022 60 [facility] Diastolic BP 82 mm[Hg] 02/16/2022 60 [facility] Oxygen FiO2 21 % 02/16/2022 60 [facility] Temperature (F) 98.0 [degF] 02/16/2022 [facility] 150 mm[Hg] 02/16/2022 60 [facility] Diastolic BP 78 mm[Hg] 02/16/2022 60 [facility] Weight (kg) 108.5 kg 02/16/2022 60 [facility] Temperature (F) 97.4 [degF] 02/16/2022 [facility] [place] Systolic BP 153 mm[Hg] 02/16/2022 60 [facility] Diastolic BP 91 mm[Hg] 02/16/2022 60 [facility] [place] Oxygen flow 2 L/min 02/16/2022 60 [facility] [place] Oxygen flow 2 L/min 02/16/2022 60 [facility] [place] Oxygen flow 2 L/min 02/16/2022 60 [facility] Weight (kg) 109.9 kg 02/15/2022 60 [facility] HeightLength (cm) 175.24 cm 02/15/2022 60 [facility] [place] Weight (kg) 108 kg 02/15/2022 60 [facility] Body Mass Index 35.17 kg/m2 02/15/2022 60 [facility] Dose calculation weight (kg) 108 kg 02/15/2022 [facility] Rate Monitored 94 bpm 02/15/2022 [address] [facility] Heart Rate Monitored 88 bpm 02/14/2022 [address] [facility] Heart Rate Monitored 100 bpm 02/14/2022 [address] [facility] Mean BP 81 mm[Hg] 02/14/2022 [facility] Dose calculation weight (kg) 108 kg 02/14/2022 60 [facility] Encounters Location Location Details Encounter Type Encounter Number Reason For Visit Attending Provider ADM Date DC Date Status Source [address] [facility] Inpatient [id number] ACUTE HYPOXEMIC RESPIRATO RY FAILURE, INFLUENZA A Wilfredo Nikjoo 02/14 Active [facility] Procedures Procedure Code Date Perfomer Comments Source ROUTINE VENIPUNCTURE [id number] 02/16/2022 60 [facility] ROUTINE VENIPUNCTURE [id number] 02/15/2022 60 [facility] ROUTINE VENIPUNCTURE [id number] 02/15/2022 60 [facility] ROUTINE VENIPUNCTURE [id number] 02/14/2022 60 [facility] WITHDRAWAL OF ARTERIAL BLOOD [id number] 02/14/2022 60 [facility] [place] WITHDRAWAL OF ARTERIAL BLOOD 85189 02/14/2022 60 [facility] [place] ROUTINE VENIPUNCTURE 55523 02/14/2022 60 [facility] ROUTINE VENIPUNCTURE 94133 02/14/2022 60 [facility] Plan of Care Plan of Care Date Source Extracted from:Title: Shortn ess of breath Author: MD Denise, Oren Ny Date: 02/14/22 Impression and Plan Diagnosis 1. Acute respiratory failure #2 acute influenza infection #3 hypertension #4 diabetes #5 history of dyslipidemia #6 history of asthma #7 history of GERD Plan Condition: Improved, Stable. Disposition: Admit. 02/16/2022 60 [facility] Maggie evans Social History Social History Date Source Social History TypeResponse Smoking Status Is there a smoker in the household? No; *Do you have concerns about tobacco use in household? No; 4 or less cigarettes(less than 1/4 pack)/day in last 30 days; Never; *Are you ready to quit? N/A entered on: 02/14/22 Sex Male [facility] Social History TypeResponse Smoking Status Is there a smoker in the household? No; *Do you have concerns about tobacco use in household? No; 4 or less cigarettes(less than 1/4 pack)/day in last 30 days; Never; *Are you ready to quit? N/A entered on: 02/14/22 Sex Male 60 [facility] Maggie evans Social History TypeResponse Smoking Status Is there a smoker in the household? No; *Do you have concerns about tobacco use in household? No; 4 or less cigarettes(less than 1/4 pack)/day in last 30 days; Never; *Are you ready to quit? N/A entered on: 02/14/22 [facility]
--- NOTE | 2023-10-23 11:11 | ED.ABDPAIN ---
HPI - Abdominal Pain General Date Seen: 10/23/23 Chief Complaint: Abdominal Pain Stated Complaint: upper abdominal pain/fatigue Time Seen by Provider: 10/23/23 10:55 Source: patient Mode of arrival: ambulatory Limitations: no limitations History of Present Illness HPI narrative: Patient is a 78-year-old male presenting to the emergency department with epigastric pain. He states the pain started 3 days ago and he believes it started acutely. Has not gotten any better in the past few days so came to emergency department for evaluation. He states he recently started a metabolic diet/15 lb in the past 2 weeks. He was expecting to lose weight but this is more than planned. Denies any nausea up with has been taking some Tylenol ibuprofen for pain without any improvement in his symptoms. Denies ever having pain like this before. Only previous abdominal surgery was an inguinal hernia repair. Has had less of an appetite the past couple days but has been having diarrhea over the past few days. Denies chest pain, shortness of breath, weakness, numbness, headache, vision changes. States the pain starts in the epigastric region but is now radiates throughout his abdomen and bilateral flanks. Denies melena or hematochezia. Denies history of aortic aneurysm but does state his aorta is larger than normal. No history of smoking. Related Data Home Medications ?Medication ?Instructions ?Recorded ?Confirmed Diabetic Test Strips 11/24/21 09/26/23 aspirin 81 mg tablet,delayed 81 mg PO DAILY 11/24/21 10/23/23 release multivitamin (Multiple Vitamins 1 tab PO QDAY 11/24/21 10/23/23 tablet) omega-3 fatty acids-fish oil 360 1 cap PO QDAY 11/24/21 10/23/23 mg-1,200 mg capsule flash glucose scanning reader #1 ea 01/12/23 09/26/23 (FreeStyle Stormy 2 Nickerson) flash glucose sensor (FreeStyle #1 ea 01/12/23 09/26/23 Stormy 2 Sensor kit) atorvastatin 20 mg tablet 20 mg PO HS 04/17/23 10/23/23 insulin glargine-yfgn 100 unit/mL 60 - 70 unit subcut HS 04/17/23 10/23/23 (3 mL) subcutaneous pen omeprazole 40 mg capsule,delayed 40 mg PO HS 04/17/23 10/23/23 release clobetasol 0.05 % topical cream 1 applic topical BID PRN 09/26/23 10/23/23 mometasone 50 mcg/actuation nasal 2 spray intranasal BID 09/26/23 10/23/23 spray tirzepatide 2.5 mg/0.5 mL 2.5 mg subcut QWEEK 09/26/23 10/23/23 subcutaneous pen injector (Trang) Previous Rx's ?Medication ?Instructions ?Recorded albuterol sulfate 90 mcg/actuation 2 puff inhalation Q4-6H PRN 01/12/23 aerosol inhaler shortness of breath or wheezing #8.5 grams carvedilol 12.5 mg tablet 12.5 mg PO BID #180 tabs 01/12/23 chlorthalidone 25 mg tablet 25 mg PO DAILY #90 tabs 01/12/23 fenofibrate nanocrystallized 145 145 mg PO DAILY #90 tabs 01/12/23 mg tablet lisinopril 40 mg tablet 40 mg PO DAILY #90 tabs 01/12/23 pen needle, diabetic 31 gauge x #100 ea 07/27/2307/26 pen needle, diabetic 31 gauge x #100 ea 07/28/2305/26 (BD Ultra-Fine Mini Pen Needle) insulin aspart U-100 100 unit/mL 20 unit (0.2 mL) subcut TIDWMEAL 08/04/23 (3 mL) subcutaneous pen #30 mL Allergies Allergy/AdvReac Type Severity Reaction Status Date / Time house dust Allergy Unknown Verified 10/23/23 12:18 cat dander Allergy Verified 10/23/23 12:18 Review of Systems Status of ROS Reports: 10 or more systems reviewed and unremarkable except as noted in History and below [facility] Medical History Abdominal wall hernia ?K43.9 - Ventral hernia without obstruction or gangrene (ICD-10) Diastolic dysfunction ?I51.89 - Other ill-defined heart diseases (ICD-10) MURPHY (dyspnea on exertion) ?R06.09 - Other forms of dyspnea (ICD-10) Pleural thickening ?J92.9 - Pleural plaque without asbestos (ICD-10) Anxiety ?F41.9 - Anxiety disorder, unspecified (ICD-10) Depression ?F32.A - Depression, unspecified (ICD-10) Vertigo ?R42 - Dizziness and giddiness (ICD-10) Umbilical hernia ?K42.9 - Umbilical hernia without obstruction or gangrene (ICD-10) Type 2 diabetes mellitus ?E11.9 - Type 2 diabetes mellitus without complications (ICD-10) Tubular adenoma ?D36.9 - Benign neoplasm, unspecified site (ICD-10) Recurrent inguinal hernia ?K40.91 - Unilateral inguinal hernia, without obstruction or gangrene, recurrent (ICD-10) Obstructive sleep apnea syndrome ?G47.33 - Obstructive sleep apnea (adult) (pediatric) (ICD-10) Hypertriglyceridemia ?E78.1 - Pure hyperglyceridemia (ICD-10) Hyperlipidemia ?E78.5 - Hyperlipidemia, unspecified (ICD-10) Gastroesophageal reflux ?K21.9 - Gastro-esophageal reflux disease without esophagitis (ICD-10) Exercise-induced asthma ?J45.990 - Exercise induced bronchospasm (ICD-10) Essential hypertension ?I10 - Essential (primary) hypertension (ICD-10) Coronary artery disease ?I25.10 - Atherosclerotic heart disease of [place] coronary artery without angina pectoris (ICD-10) Benign paroxysmal vertigo ?H81.10 - Benign paroxysmal vertigo, unspecified ear (ICD-10) Aortic root dilatation ?I77.810 - Thoracic aortic ectasia (ICD-10) History of tinnitus ?Z86.69 - Personal history of other diseases of the nervous system and sense organs (ICD-10) Surgical History History of ventral hernia repair ?Z98.890 - Other specified postprocedural states (ICD-10) ?Z87.19 - Personal history of other diseases of the digestive system (ICD-10) H/O bilateral inguinal hernia repair ?Z98.890 - Other specified postprocedural states (ICD-10) ?Z87.19 - Personal history of other diseases of the digestive system (ICD-10) History of umbilical hernia repair ?Z98.890 - Other specified postprocedural states (ICD-10) ?Z87.19 - Personal history of other diseases of the digestive system (ICD-10) History of total knee replacement ?Z96.659 - Presence of unspecified artificial knee joint (ICD-10) History of sinus surgery ?Z98.890 - Other specified postprocedural states (ICD-10) History of right inguinal hernia repair ?Z98.890 - Other specified postprocedural states (ICD-10) ?Z87.19 - Personal history of other diseases of the digestive system (ICD-10) History of colonoscopy ?Z98.890 - Other specified postprocedural states (ICD-10) Social History Narrative: . His and son live in the home with him. He denies tobacco use. He smoked socially for 6 months when he was in late teens. He drinks about 1 alcoholic drink per month. Denies recreational drug use. What is your current living situation?: I presently have a place to live Problems where you live: no known problems In the past 12 months, utilities in danger of being shut off: no In past 12 months, lack of transportation kept you from medical appts, meetings, work, or getting things needed for daily living: no In the past 12 mos, have been you worried that your food would run out before you had money to buy more?: never true In the past 12 mos, the food you bought just didn't last and you didn't have money to buy more?: never true Smoking Status: Never smoker How often do you have a drink containing alcohol: monthly or less AUDIT-C Alcohol total score: 1 Non-prescribed substance use: denies use How often does anyone, including family, friends and others, physically hurt you: never How often does anyone, including family, friends and others, insult or talk down to you: never How often does anyone, including family, friends and others, threaten you with harm: never How often does anyone, including family, friends and others, scream or curse at you: never Little interest or pleasure in doing things: not at all Feeling down, depressed, or hopeless: not at all service: No Exam Narrative: Exam Narrative: Const: Well-nourished, Well-developed, in mild distress Eyes: PERRL, no conjunctival injection, and symmetrical lids HENT: Atraumatic external nose and ears. Moist mucous membranes. Neck: Symmetric, trachea midline, No thyromegaly. CVS: RRR, No murmurs or gallops. Peripheral pulses 2+ and equal in all extremities RESP: Unlabored respiratory effort. Clear to auscultation bilaterally. GI: Epigastric tenderness, mild discomfort on palpation throughout the abdomen. Nondistended, No rebound or guarding. MSK:Extremities w/o deformity, Normal Active ROM Skin: Warm, Dry. No rashes or lesions. Neuro: Normal Muscle tone, No focal neurological deficits. Psych: Awake, Alert, & Oriented x3. Appropriate mood and affect. Const: Vital Signs, click to edit/add: Vital Signs - 24 hr 10/23/23 10:04 Temperature 98.1 F Pulse Rate [Pulse Oximeter] 70 Respiratory Rate 16 Blood Pressure [Ri ght Upper Arm] 97/55 L Pulse Oximetry 96 Oxygen Delivery Me thod Room Air Course Vital Signs Vital signs: Initial Vital Signs Temperature 98.1 F 10/23/23 10:04 Temperature Source Temporal Artery Scan 10/23/23 10:04 Pulse Rate 70 10/23/23 10:04 Respiratory Rate 16 10/23/23 10:04 Blood Pressure 97/55 L 10/23/23 10:04 Blood Pressure Mean 69 L 10/23/23 10:04 Blood Pressure Position Sitting 10/23/23 10:04 Pulse Oximetry 96 10/23/23 10:04 Oxygen Delivery Method Room Air 10/23/23 10:04 Vital Signs Temperature 98.1 F 10/23/23 10:04 Pulse Rate 70 10/23/23 10:04 Respiratory Rate 16 10/23/23 10:04 Blood Pressure 97/55 L 10/23/23 10:04 Pulse Oximetry 96 10/23/23 10:04 Oxygen Delivery Method Room Air 10/23/23 10:04 Temperature 98.1 F 10/23/23 10:04 Pulse Rate 70 10/23/23 10:04 Respiratory Rate 16 10/23/23 10:04 Blood Pressure 97/55 L 10/23/23 10:04 Pulse Oximetry 96 10/23/23 10:04 Oxygen Delivery Method Room Air 10/23/23 10:04 Medications Administered Medications: Discontinued Medications Generic Name Dose Route Start Last Admin Trade Name Freq PRN Reason Stop Dose Admin Lactated Ringer's 1,000 mls @ 1,000 mls/hr 10/23/23 11:03 10/23/23 11:42 Lactated Ringers 1000 Ml IV 10/23/23 12:02 1,000 mls/hr .Q1H ONE Administration Morphine Sulfate 4 mg 10/23/23 11:03 10/23/23 11:42 Morphine 4 Mg/Ml Inj IVP 10/23/23 11:04 4 mg ONCE ONE Administration MDM - Abdominal Pain MDM Narrative Medical decision making narrative: Patient is a 78-year-old male presenting to emergency department for gastric year. His this time differential includes peptic ulcers, gastritis, pancreatitis. Does have a history surgeries SBO is concerned her. Says patient with the radiation of the pain and headaches also hospital to potential pain of a AAA but this is usually to the lower in the abdomen. She at this time I will do a CBC, CMP, lipase, urinalysis, COVID/flu/RSV. CT abdomen pelvis also given fluids and some morphine for pain. Concerned this could be an uncommon presentation for ACS also ordered troponin and EKG. Lab work returned showing no concerning abnormalities. His creatinine has increased slightly in the past month from 1.6 to 1.7 but now criteria for an acute kidney injury. Lipase within normal limits and urinalysis shows no signs of UTI. COVID/flu/RSV is negative. EKG and troponin shows no concerning findings. CT returned showing signs of inflammatory changes in the duodenum that could be concerning for duodenitis versus ulcer disease. There is some trace stranding along the pancreatic head this is most likely to be reactive in nature. Considering the lipase is normal this is unlikely to be early pancreatitis. There is moderate atherosclerotic disease within the aorta but no signs of aortic aneurysm unlikely to have a AAA rupture. CTA is not necessary. Patient is feeling much better at this time. I will give him a dose of GI cocktail to help with his symptoms. Initial blood pressure was low at 90 7/55 a repeat blood pressure is 135/70 after fluids. Some this is likely related to dehydration because he states he has not been eating or drinking as much past couple days. He is already on omeprazole 40 mg daily and I will have him continue this. Patient will follow-up with his primary care provider if symptoms persist. He is agreeable to this plan. Lab Data Labs: Lab Results 10/23/23 10/23/23 10/23/23 Range/Units 11:03 11:21 11:37 WBC 5.36 (4.50-11.00) K/uL RBC 3.85 L (4.30-5.90) m/uL Hgb 12.3 L (13.5-17.5) gm/dL Hct 36.3 L (37.0-53.0) % MCV 94 (80-100) fL MCH 32 (26-34) pg MCHC 34 (32-36) gm/dL RDW Coeff of Rhett 13.3 (11.5-15.5) % Plt Count 141 (140-440) K/uL Neut % (Auto) 70.5 (42.0-72.0) % Lymph % (Auto) 16.2 L (20-44) % [place] % (Auto) 8.8 (0.0-11.0) % Eos % (Auto) 3.7 (0.0-7.0) % Baso % (Auto) 0.4 (0.0-3.0) % Neut # (Auto) 3.78 (1.7-7.0) K/uL Lymph # (Auto) 0.90 (0.90-2.90) K/uL [place] # (Auto) 0.50 (0.00-0.90) K/UL Eos # (Auto) 0.20 (0.00-0.50) K/uL Baso # (Auto) 0.02 (0.00-0.30) K/uL Abs Immat Gran (auto) 0.02 (0.00-0.30) K/uL Imm/Tot Granulo (auto) 0.4 % Sodium 131 L (135-149) mmol/L Potassium 4.0 (3.6-5.1) mmol/L Chloride 99 (96-114) mmol/L Carbon Dioxide 23 (20-32) mmol/L Anion Gap 9 (7-15) mEq/L BUN 39 H (7-30) mg/dL Creatinine 1.7 H (0.5-1.5) mg/dL Estimated Creat Clear 36.39 Estimated GFR 41 ml/min Glucose 156 H (60-115) mg/dL Calcium 8.9 (8.4-10.6) mg/dL Total Bilirubin 0.9 (0.1-1.5) mg/dL AST 27 (12-35) U/L ALT 25 (4-50) U/L Alkaline Phosphatase 51 (40-150) U/L Total Protein 6.6 (6.0-8.3) g/dL Albumin 4.2 (3.3-5.0) g/dL Lipase 129 (23-300) U/L Urine Color Yellow (Yellow) Urine Appearance Clear (Clear) Urine pH 5.5 (5.0-8.5) Ur Specific [place] 1.025 (1.000-1.030) Urine Protein Negative (Negative) Urine Glucose (UA) Negative (Negative) Urine Ketones Negative (Negative) Urine Blood Negative (Negative) Urine Nitrite Negative (Negative) Urine Bilirubin Negative (Negative) Urine Urobilinogen 1.0 (0.2-1.0) Ur Leukocyte Esterase Negative (Negative) Urine RBC 0-2 (0-2) Urine WBC 0-2 (0-5) Ur Squamous Epith Cells Few (None-Few) Urine Bacteria Few A (None) SARS-CoV-2 (PCR) Negative SARS-CoV-2 (Negative) Influenza Type A (PCR) Negative PCR FLU A (Negative) Influenza Type B (PCR) Negative PCR FLU B (Negative) RSV (PCR) Negative PCR RSV (Negative) POC Troponin I 0.00 L (0.01-0.04) ng/ml Imaging Data CT scan abdomen/pelvis: Attestation: I have reviewed the pertinent imaging results. Radiologist's impression: 1. Inflammatory changes along the proximal duodenum concerning for duodenitis/ulcer disease. There is trace adjacent stranding along the pancreatic head, which is favored to be reactive; however, early pancreatitis is not excluded. 2. Hepatic steatosis. 3. Increased periumbilical soft tissue stranding may represent infectious/inflammatory process. 4. Additional chronic/incidental findings as described. Please note that all CT scans at this facility use dose modulation, iterative reconstruction, and/or weight-based dosing when appropriate to reduce radiation dose to as low as reasonably achievable. Dictated by Benita Higgins MD @ 10/23/2023 12:36:44 PM ECG Data Attestation: I personally reviewed and interpreted this ECG as follows: Prior ECG tracings: not available for review Interpretation: Normal sinus rhythm 3 7 beats per minute, normal axis, right bundle-branch block, no ST or T-wave abnormalities Discharge Plan Discharge Clinical Impression: Abdominal pain Qualifiers: Abdominal location: epigastric Qualified Code(s): R10.13 - Epigastric pain Patient Disposition: Home, Self-Care Condition: Improved Instructions: Peptic Ulcer (ED) Additional Instructions: Follow-up with your primary care provider symptoms persist. Continue take your omeprazole. Do not take any NSAIDs. Return to emergency department for new or worsening symptoms. Make sure you stay very well hydrated Prescriptions: No Action multivitamin [Multiple Vitamins] Tablet 1 tab PO QDAY aspirin 81 mg tablet,delayed release (DR/EC) 81 mg PO DAILY (DME) Diabetic Test Strips Misc See Rx Instructions .Route Rx Instructions: As directed omega-3 fatty acids-fish oil 360-1,200 mg capsule 1 cap PO QDAY Mounjaro 2.5 mg/0.5 mL pen injector 2.5 mg subcut QWEEK clobetasol 0.05 % cream 1 applic topical BID PRN Rx Instructions: Apply topically to affected area twice daily as needed, put away cream when skin has cleared. mometasone 50 mcg/actuation spray,non-aerosol 2 spray intranasal BID Rx Instructions: administer into each nostril (DME) FreeStyle Stormy 2 Sensor Kit See Rx Instructions .ROUTE .MEDSUPPLY Qty: 1 Patient Comments: [NO ORIGINAL SIG] Rx Instructions: As directed (DME) FreeStyle Stormy 2 Nickerson [facility] See Rx Instructions .ROUTE DIRECTED Qty: 1 Rx Instructions: As directed albuterol sulfate 90 mcg/actuation HFA aerosol inhaler 2 puff inhalation Q4-6H PRN (Reason: shortness of breath or wheezing) Qty: 8.5 3RF carvedilol 12.5 mg tablet 12.5 mg PO BID Qty: 180 3RF chlorthalidone 25 mg tablet 25 mg PO DAILY Qty: 90 3RF fenofibrate nanocrystallized 145 mg tablet 145 mg PO DAILY Qty: 90 3RF lisinopril 40 mg tablet 40 mg PO DAILY Qty: 90 3RF atorvastatin 20 mg tablet 20 mg PO HS omeprazole 40 mg capsule,delayed release(DR/EC) 40 mg PO HS insulin glargine-yfgn 100 unit/mL (3 mL) insulin pen 60 - 70 unit subcut HS (DME) pen needle, diabetic 31 gauge x 5/16 needle See Rx Instructions .Route Qty: 100 3RF Rx Instructions: As directed (DME) pen needle, diabetic [BD Ultra-Fine Mini Pen Needle] 31 gauge x 3/16 needle See Rx Instructions .Route Qty: 100 0RF Rx Instructions: Patient to use 4 times a day insulin aspart U-100 100 unit/mL (3 mL) insulin pen 20 unit subcut TIDWMEAL Qty: 30 0RF Follow Up/Referrals: Tulio Ortiz MD [Primary Care Provider] - Stand Alone Forms: [email or web address] Info Instructions
[2023-10-23 11:31] LABS: Basophils Absolute Auto 0.02 K/uL (0.00-0.30); Basophils Percent Auto 0.4 % (0.0-3.0); Eosinophils Percent Auto 3.7 % (0.0-7.0); Hematocrit 36.3 % (37.0-53.0); Hemoglobin* 12.3 gm/dL (13.5-17.5); Immature Granulocytes Abs Auto 0.02 K/uL (0.00-0.30); Immature Granulocytes Pct Auto 0.4 %; Lymphocytes Percent Auto 16.2 % (20-44); Mean Corpuscular HGB Conc 34 gm/dL (32-36); Mean Corpuscular Hemoglobin 32 pg (26-34); Mean Corpuscular Volume 94 fL (80-100); Monocytes Percent Auto 8.8 % (0.0-11.0); Neutrophils Absolute Auto 3.78 K/uL (1.7-7.0); Neutrophils Percent Auto 70.5 % (42.0-72.0); Platelet Count* 141 K/uL (140-440); RDW Coefficient of Variation % 13.3 % (11.5-15.5); Red Blood Count 3.85 m/uL (4.30-5.90); White Blood Count* 5.36 K/uL (4.50-11.00)
[2023-10-23 11:38] LABS: Slide Review Reflex No
[2023-10-23] MEDS: MORPHINE 4 MG/ML INJ IVP (11:42)
[2023-10-23] MEDS: LACTATED RINGERS 1000 ML 1,000 ML IV (11:42)
[2023-10-23 11:44] LABS: Albumin* 4.2 g/dL (3.3-5.0); Chloride* 99 mmol/L (96-114); Sodium* 131 mmol/L (135-149)
[2023-10-23 11:47] LABS: Alanine Aminotransferase* 25 U/L (4-50); Alkaline Phosphatase* 51 U/L (40-150); Anion Gap 9 mEq/L (7-15); Aspartate Amino Transferase* 27 U/L (12-35); Bilirubin Total* 0.9 mg/dL (0.1-1.5); Blood Urea Nitrogen* 39 mg/dL (7-30); Carbon Dioxide* 23 mmol/L (20-32); Creatinine* 1.7 mg/dL (0.5-1.5); Est. Creatinine Clearance* 36.39; Estimated Glomerular Filt Rate 41 ml/min; Glucose* 156 mg/dL (60-115); Lipase* 129 U/L (23-300); Total Protein* 6.6 g/dL (6.0-8.3)
[2023-10-23 11:47] LABS: Appearance Urine Clear (Clear); Bilirubin Urine Negative (Negative); Blood Urine Negative (Negative); Color Urine Yellow (Yellow); Glucose Urine Negative (Negative); Ketones Urine Negative (Negative); Leukocyte Esterase Urine Negative (Negative); Nitrite Urine Negative (Negative); Protein Urine Negative (Negative); Specific Gravity Urine 1.025 (1.000-1.030); pH Urine 5.5 (5.0-8.5)
[2023-10-23 11:48] LABS: Calcium* 8.9 mg/dL (8.4-10.6)
[2023-10-23 12:04] LABS: Bacteria Urine Few; RBC Urine 0-2 (0-2); Squamous Epithelial Cell Urine Few (None-Few); WBC Urine 0-2 (0-5)
[2023-10-23 12:09] LABS: PCR FLU A Negative PCR FLU A (Negative); PCR FLU B Negative PCR FLU B (Negative); PCR RSV Negative PCR RSV (Negative); SARS PCR* Negative SARS-CoV-2 (Negative)
[2023-10-23] MEDS: GI COCKTAIL (VISC LIDO/ANTACID) 30 ML PO (13:01)
[2023-10-23 13:03] VITALS: BP 135/70; PULSE 70; RESP 18; O2SAT 94
== END 2023-10-23 13:13 | disposition home or self-care (01) ==
PROVIDERS: Emergency Provider Student in an Organized Health Care Education/Training Program; PCP Family Medicine
DX: R10.13 Epigastric pain (principal)
CPT/HCPCS: 36415; 74177; 80053; 81001; 82565; 83690; 84484; 85025; 87086; 87631; 93005; 96374; 99283; 99284; A9270; J2270; J7120; Q9967

== ENCOUNTER 2024-01-12 07:54 | Outpatient (CLI) | payer MEDICARE, OTHER, SELFPAY ==
--- OUTSIDE RECORDS SUMMARY | 2024-01-12 13:30 | XMS_ITS | Encounter Summary ---
Author Organization [facility] Address [address] [place] [id number] Care Team Providers Care Roof Fixer Name Role Phone Elsewhere, Pcp Primary Care Provider Unavailabl e Reason for Referral * Medication Prior Authorization - Denied Specialty Diagnoses / Procedures Referred By Fern t Referred To Contact Sky Mai M.B.B.S., M.D. [address] [place] [address] Phone: tel: fax: Referral ID Status Reason Start Date Expiration Date Visits Re quested Visits Authorized [id number] Denied 1 1 Reason for Visit * Reason Comments Med Refill Encounter Details Date Type Department Care Team (Late st Contact Info) Description 11/21/2023 Refill Division of Endocrinology in [place], [place] [address] [place] [phone] Sky Mai M.B.B.S., M.D. [address] [place] [phone] Med Refill Social History Tobacco Use Types [...] week 05/12/2022 How often do you attend [facility] or taoism services? More than 4 times per year 05/12/2022 Do you belong to any clubs o r organizations such as jain groups, unions, fraternal or athletic groups, or [...] and heating? Not hard at all 09/28/2022 [facility] [...] your living situation today? I have a [facility] place to live 09/28/2022 Education Answer Date Recorded What is the highest level of school you have completed or the highest degree you have received? Doctorate 06/16/2021 Sex and Gender Information Value Date Recorded Sex Assigned at Male 06/16/2021 2:26 PM CDT Legal Sex Male 8:15 PM EXTRACTION OPERATOR Gender Identity Male 06/16/2021 2:26 PM CDT Sexual Orientation Straight 06/16/2021 2: 26 PM CDT documented as of this encounter Plan of Treatment Upcoming Encounters Date Type Department Care Team (Latest Contact Info) Description 03/08/2024 8:45 AM EXTRACTION OPERATOR Clinical Communication Virtual Review in [place], [place] 200 [place] [phone] 03/11/2024 8:00 AM EXTRACTION OPERATOR Appointment Department of Laboratory Medicine and Pathology, [place], [place] [address] [place] [phone] Sky Mai M.B.B.S., [place] [address] [place] [phone] 03/11/2024 8:10 AM EXTRACTION OPERATOR Appointment Department of Laboratory Medicine and Pathology, [facility] in [place], [place] [address] [place] [phone] Sky Mai M.B.B.S., M.D. [address] [place] [phone] 03/11/2024 4:00 PM EXTRACTION OPERATOR Office Visit Division of Endocrinology in [address] [phone] Sky Mai M.B.B.S., [place] [address] [place] [phone] documented as of this encounter Visit Diagnoses Not on filedocumented in this encounter Care Teams Roof Fixer Relationship Specialty Start Date End Date Elsewhere, Pcp PCP - General Internal Medicine 05/17/22 12/25/23 documented as of this encounter
--- OUTSIDE RECORDS SUMMARY | 2024-01-12 13:30 | XMS_ITS | Encounter Summary ---
Author Organization [facility] Address [address] [place] [address] Care Team Providers Care Fire Behavior Analyst Name Role Phone Elsewhere, Pcp Primary Care Provider Unavailabl e Encounter Details Date Type Department Care Team (Latest Contact Info) Description 12/25/2023 Clinical Communication Division of Endocrinology in [place], [place] [address] [place] [address] Sky Mai M.B.B.S., M.D. [address] [place] [phone] Social History Tobacco Use Types Packs/Day Years Used Date Smoking Tobacco: Never Passive Smoke Exposure: Never Smokeless Tobacco: Never Alcohol Use Standard Drinks/Week Comments Yes 2 (1 standard drink = 0.6 oz pur e alcohol) [facility] Utilities Answer Date Recorded In the past 12 months has [employer], gas, oil, or water [employer] threatened to shut off services in your home? No 12/26/2023 Humiliation, Afraid, Rape, and Kick questionnair e [...] How often do you attend chur or mandaen services? More than 4 times per year 05/12/2022 Do you belong to any clubs o r organizations such as presybeterian groups, unions, fraternal or athletic groups, or [...] and heating? Not hard at all 09/28/2022 [facility] of Occupat ional [...] to strenuous exercise (like a brisk walk)? 3 days 12/26/2023 On average, how many minutes do you engage in exercise at this level? 30 min 12/26/2023 Hunger Vital Sign Answer Date Recorded Within the past 12 months, y ou worried that your food would run out before you got the money to buy more. Never true 12/26/19 24 Within the past 12 months, t he food you bought just didn't last and you didn't have money to get more. Never true 12/26/2023 PRAPARE - Transportation Answer Date Re corded In the past 12 months, has l ack of transportation kept you from medical appointments or from getting medications? No 12/11 In the past 12 months, has l ack of transportation kept you from meetings, work, or from getting things needed for daily living? No 12/26/2023 Nutrition Answer Date Recorded On average, how many serving s of fruits and vegetables do you eat per day (serving size is equal to 1 cup or approximately the size of a tennis ball)? 0-2 12/26/2023 Dental Answer Date Recorded Dental: Regular Dentist Yes 06/17/19 Employment Answer Date Recorded Employment status Retired 12/26/2023 Housing Stability Answer Date Recorded What is your living situation today? I have a [facility] place to live 12/26/2023 Education Answer Date Recorded What is the highest level of school you have completed or the highest degree you have received? Doctorate 06/16/2021 Sex and Gender Information Value Date Recorded Sex Assigned at Male 06/16/2021 2:26 PM CDT Legal Sex Male 8:[address] JUDGE Gender Identity Male 06/16/2021 2:26 PM CDT Sexual Orientation Straight 06/16/2021 2: 26 PM CDT documented as of this encounter Plan of Treatment Upcoming Encounters Date Type Department Care Team (Latest Contact Info) Description 03/08/2024 8:[address] JUDGE Clinical Communication Virtual Review in [place], [place] [address] [place] [address] 03/11/2024 8:[address] JUDGE Appointment Department of Laboratory Medicine and Pathology, [facility], in [place], [place] [address] [place] [phone] Sky Mai M.B.B.S., MAsaf. [address] [place] [phone] 03/11/2024 8:[address] JUDGE Appointment Department of Laboratory Medicine and Pathology, [facility], in [place], [place] [address] [place] [address] Sky Mai M.B.B.S., [place] [address] [place] [phone] 03/11/2024 4:[address] JUDGE Office Visit Division of Endocrinology in [place], [place] [address] [place] [address] Sky Mai M.B.B.S., MLida [address] [place] [phone] documented as of this encounter Visit Diagnoses Not on filedocumented in this encounter Care Teams Fire Behavior Analyst Relationship Specialty Start Date End Date Elsewhere, Pcp PCP - General Internal Medicine 12/26/23 documented as of this encounter
--- OUTSIDE RECORDS SUMMARY | 2024-01-12 13:30 | XMS_ITS ---
Author Organization [facility] Address [address] [place] [address] Care Team Providers Care Substance Abuse Counselor Name Role Phone Unavailable Unavailable Unavailable Surgery Details Not on file Complications Check Surgery Details section. Procedure Estimated Blood Loss Check Surgery Details section. Procedure Findings Check Surgery Details section. Procedure Specimens Taken Check Surgery Details section.
--- OUTSIDE RECORDS SUMMARY | 2024-01-12 13:30 | XMS_ITS | Encounter Summary ---
Author Organization [facility] Address [address] [place] [id number] Care Team Providers Care Biometrics Consultant Name Role Phone Elsewhere, Pcp Primary Care Provider Unavailabl e Reason for Visit * Reason Onset Date Comments Rx Prior Authorization 12/07/2023 VASCEPA Rx Denial 12/07/2023 Vascepa Encounter Details Date Type Department Care Team (Latest Contact Info) Description 12/07/2023 Clinical Communication Division of Endocrinology in [place], [place] [address] [place] [address] Sky Mai M.B.B.S., Alix. [address] [place] [address] Rx Prior Authorization (VASCEPA); Rx Denial (Vascepa) Social History Tobacco Use Types Packs/Day Years Used Date Smoking Tobacco: Never Passive Smoke Exposure: Never Smokeless Tobacco: Never Alcohol Use Standard Drinks/Week Comments Yes 2 (1 standard drink = 0.6 oz pur e alcohol) [facility] Utilities Answer Date Recorded In the past 12 months has e [employer] gas, oil, or water company threatened to shut off services in your [...] and heating? Not hard at all 09/28/2022 [facility] of Occupat ional Health - Occupational Stress [...] your living situation today? I have a [facility] place to live 12/26/2023 Education Answer Date Recorded What is the highest level of school you have completed or the highest degree you have received? Doctorate 06/16/2021 Sex and Gender Information Value Date Recorded Sex Assigned at Male 06/16/2021 2:26 PM CDT Legal Sex Male 8:15 PM PATIENT SERVICE SPECIALIST Gender Identity Male 06/16/2021 2:26 PM CDT Sexual Orientation Straight 06/16/2021 2: 26 PM CDT documented as of this encounter Plan of Treatment Upcoming Encounters Date Type Department Care Team (Latest Contact Info) Description 03/08/2024 8:45 AM PATIENT SERVICE SPECIALIST Clinical Communication Virtual Review in [place], [place] [address] [place] [address] 03/11/2024 8:00 AM PATIENT SERVICE SPECIALIST Appointment Department of Laboratory Medicine and Pathology, [facility], in [place], [place] [address] [place] [address] Sky Mai M.B.B.S., M.D. [address] [place] [phone] 03/11/2024 8:10 AM PATIENT SERVICE SPECIALIST Appointment Department of Laboratory Medicine and Pathology, [facility] in [place], [place] [address] [place] [address] Sky Mai M.B.B.S., M.D. [address] [place] [phone] 03/11/2024 4:00 PM PATIENT SERVICE SPECIALIST Office Visit Division of Endocrinology in [place], [place] [address] [place] [address] Sky Mai M.B.B.S., M.D. [address] [place] [phone] documented as of this encounter Visit Diagnoses Not on filedocumented in this encounter Care Teams Biometrics Consultant Relationship Specialty Start Date End Date Elsewhere, Pcp PCP - General Internal Medicine 12/26/23 documented as of this encounter
--- OUTSIDE RECORDS SUMMARY | 2024-01-12 13:30 | XMS_ITS | Continuity of Care Document ---
Author Name [facility] Organization [facility] Care Team Providers Care Assurance Auditor Name Role Phone [facility] Unavailable Unavailable Problems Problem Status Onset Date Classification Date Reported Comments Source Influenza due to other identified influe Active 02/14/2022 [facility] Acute respiratory failure with hypoxia Active 02/14/2022 [facility] Shortness of breath Active [facility] Medications Medication Details Route Status Patient Instructions Ordering Provider Order Date Source Tamiflu 75 mg oral capsule = 1 Cap, ORAL, BID, X 5 Day(s), # 10 Cap, 0 Refill(s), Acute, Pharmacy: [id number], 175.24, cm, 02/14/22 17:56:00 PST, Height/Length (cm), 108, kg, 02/14/22 17:56:00 PST, Dose calculation weight (kg) Active 60 [facility] NovoLOG FlexPen 0 Refill(s), Maintenance Active 60 [facility] Semglee 70 mg evenings, 0 Refill(s), Maintenance Active 60 [facility] chlorthalidone 25 mg oral tablet = 1 Tab, ORAL, DAILY, 1/2 daily, 0 Refill(s), Maintenance Active 60 [facility] omeprazole 40 mg oral delayed release capsule 1 Cap, ORAL, DAILY, 0 Refill(s), Maintenance Active 60 [facility] fluticasone 50 mcg/inh inhalation powder 1 Puff, INH, BID, 0 Refill(s), Maintenance Active 60 [facility] fenofibrate 145 mg oral tablet = 1 Tab, ORAL, DAILY, 0 Refill(s), Maintenance Active 60 [facility] A/Fish Oil 25104 u oral capsule 0 Refill(s), Maintenance Active 60 [facility] albuterol 2.5 mg, INH, A9A-Wllwdbel, 0 Refill(s), Maintenance Active 60 [facility] Aspir 81 oral enteric coated tablet = 1 Tab, ORAL, DAILY, 0 Refill(s), Maintenance Active 60 [facility] atorvastatin 10 mg oral tablet = 1 Tab, ORAL, DAILY, 0 Refill(s), Maintenance Active 60 [facility] Results Order Name Results Value Reference Range Date Interpretation Comments Source AutoDiff* Auto Neutrophil Percent 90.5 % 49.4 - 72.6 02/16 H [facility] AutoDiff* Auto Neutrophil Absolute 9.5 K/uL 2.0 - 6.4 02/16 H [facility] AutoDiff* Auto Lymphocyte Percent 4.8 % 18.0 - 40.0 02/16 L [facility] AutoDiff* Auto Lymphocyte Absolute 0.5 K/uL 1.5 - 3.0 02/16 [facility] AutoDiff* Auto Monocyte Percent 4.7 % 4.9 - 10.1 02/16 [facility] AutoDiff* Auto Monocyte Absolute 0.5 K/uL 0.3 - 0.8 02/16 [facility] AutoDiff* Auto Eosinophil Percent 0.0 % 0.0 - 5.0 02/16 [facility] AutoDiff* Auto Eosinophil Absolute 0.0 K/uL 0.0 - 0.4 02/16 [facility] AutoDiff* Auto Basophil Percent 0.0 % 0.2 - 1.2 02/16 [facility] AutoDiff* Auto Basophil Absolute 0.0 K/uL 0.0 - 0.1 02/16 [facility] AutoDiff* Sex assigned at Male 02/16 [facility] CBC WBC 10.5 K/uL 3.7 - 10.5 02/16 [facility] CBC RBC 3.90 M/uL 3.81 - 5.87 02/16 NA [facility] CBC HGB 11.7 g/dL 12.0 - 17.9 02/16 L [facility] CBC HCT 34.3 % 34.4 - 50.2 02/16 L [facility] CBC MCV 88.0 fL 80.0 - 99.8 02/16 NA [facility] CBC MCH 29.9 pg 26.7 - 34.0 02/16 NA [facility] CBC MCHC 33.9 g/dL 31.0 - 37.0 02/16 NA [facility] CBC RDW 15.5 % 12.0 - 15.8 02/16 NA [facility] CBC PLT 146 K/uL 139 - 422 02/16 NA [facility] CBC MPV 9.00 fL 6.84 - 10.28 02/16 NA [facility] CBC Sex assigned at Male 02/16 NA [facility] CMP Sodium Level 132 MMOL/L 135 - 145 02/16 L [facility] CMP Potassium Level 4.1 MMOL/L 3.5 - 5.0 02/16 NA [facility] CMP Chloride Level 101 MMOL/L 101 - 111 02/16 NA [facility] CMP CO2/Carbon Dioxide 22 MMOL/L 24 - 32 02/16 L [facility] CMP Anion Gap 9.0 5.0 - 15.0 02/16 NA [facility] CMP Glucose, Random 316 MG/DL - <=200 02/16 H [facility] CMP BUN 34 MG/DL 8 - 20 02/16 H [facility] CMP Creatinine 1.39 MG/DL 0.60 - 1.30 02/16 H [facility] CMP BUN/Creat Ratio 24.5 12.0 - 20.0 02/16 H [facility] CMP Osmolality, Calculated 284 mOsm/L 02/16 [facility] Calcium Level 8.6 MG/DL 8.4 - 10.2 02/16 [facility] Total Protein 6.6 g/dL 6.4 - 8.3 02/16 [facility] Albumin Level 3.5 g/dL 3.2 - 5.5 02/16 [facility] Globulin Level 3.1 g/dL 1.5 - 3.5 02/16 NA [facility] A/G Ratio 1.1 1.1 - 2.2 02/16 NA [facility] ALP 35 IU/L 30 - 115 02/16 [facility] ALT 40 IU/L 5 - 36 02/16 H [facility] AST 50 IU/L 10 - 42 02/16 H [facility] Bilirubin, Total 0.6 MG/DL 0.2 - 1.2 02/16 [facility] GFR - Non 53 mL/min/1.7 3m2 [...] 18 or greater, not for pediatric patients. [facility] GFR - 64 mL/min/1.7 3m2 >=61 02/16 [facility] Sex assigned at Male 02/16 NA [facility] Mg Magnesium Level 2.2 MG/DL 1.7 - 2.8 02/16 NA [facility] Mg Sex assigned at Male 02/16 NA [facility] Phos Phosphorus Level 2.8 MG/DL 2.5 - 4.5 02/16 NA [facility] Phos Sex assigned at Male 02/16 NA [facility] AutoDiff* Auto Neutrophil Percent 89.9 % 49.4 - 72.6 02/15 H [facility] AutoDiff* Auto Neutrophil Absolute 8.5 K/uL 2.0 - 6.4 02/15 H [facility] AutoDiff* Auto Lymphocyte Percent 5.1 % 18.0 - 40.0 02/15 L [facility] AutoDiff* Auto Lymphocyte Absolute 0.5 K/uL 1.5 - 3.0 02/15 L [facility] AutoDiff* Auto Monocyte Percent 5.0 % 4.9 - 10.1 02/15 NA [facility] AutoDiff* Auto Monocyte Absolute 0.5 K/uL 0.3 - 0.8 02/15 NA [facility] AutoDiff* Auto Eosinophil Percent 0.0 % 0.0 - 5.0 02/15 NA [facility] AutoDiff* Auto Eosinophil Absolute 0.0 K/uL 0.0 - 0.4 02/15 NA [facility] AutoDiff* Auto Basophil Percent 0.0 % 0.2 - 1.2 02/15 L [facility] AutoDiff* Auto Basophil Absolute 0.0 K/uL 0.0 - 0.1 02/15 NA [facility] AutoDiff* Sex assigned at Male 02/15 NA [facility] CBC WBC 9.4 K/uL 3.7 - 10.5 02/15 NA [facility] CBC RBC 3.91 M/uL 3.81 - 5.87 02/15 NA [facility] CBC HGB 11.6 g/dL 12.0 - 17.9 02/15 L [facility] CBC HCT 34.9 % 34.4 - 50.2 02/15 NA [facility] CBC MCV 89.4 fL 80.0 - 99.8 02/15 NA [facility] CBC MCH 29.6 pg 26.7 - 34.0 02/15 NA [facility] CBC MCHC 33.2 g/dL 31.0 - 37.0 02/15 NA [facility] CBC RDW 15.5 % 12.0 - 15.8 02/15 NA [facility] CBC PLT 123 K/uL 139 - 422 02/15 L [facility] CBC MPV 9.30 fL 6.84 - 10.28 02/15 NA [facility] CBC Sex assigned at Male 02/15 NA [facility] CMP Sodium Level 136 MMOL/L 135 - 145 02/15 NA [facility] CMP Potassium Level 4.5 MMOL/L 3.5 - 5.0 02/15 NA [facility] CMP Chloride Level 104 MMOL/L 101 - 111 02/15 NA [facility] CMP CO2/Carbon Dioxide 24 MMOL/L 24 - 32 02/15 NA [facility] CMP Anion Gap 8.0 5.0 - 15.0 02/15 NA [facility] CMP Glucose, Random 302 MG/DL - <=200 02/15 H [facility] CMP BUN 27 MG/DL 8 - 20 02/15 H [facility] CMP Creatinine 1.59 MG/DL 0.60 - 1.30 02/15 H [facility] CMP BUN/Creat Ratio 17.0 12.0 - 20.0 02/15 [facility] CMP Osmolality, Calculated 288 mOsm/L 02/15 NA [facility] CMP Calcium Level 8.7 MG/DL 8.4 - 10.2 02/15 [facility] CMP Total Protein 6.6 g/dL 6.4 - 8.3 02/15 [facility] CMP Albumin Level 3.6 g/dL 3.2 - 5.5 02/15 NA [facility] CMP Globulin Level 3.0 g/dL 1.5 - 3.5 02/15 NA [facility] CMP A/G Ratio 1.2 1.1 - 2.2 02/15 NA [facility] CMP ALP 36 IU/L 30 - 115 02/15 NA [facility] CMP ALT 44 IU/L 5 - 36 02/15 H [facility] CMP AST 58 IU/L 10 - 42 02/15 H [facility] CMP Bilirubin, Total 0.5 MG/DL 0.2 - 1.2 02/15 [facility] GFR - Non 45 mL/min/1.7 3m2 [...] 18 or greater, not for pediatric patients. [facility] CMP Sex assigned at Male 02/15 [facility] CMP GFR - 55 mL/min/1.7 3m2 >=61 02/15 L [facility] Mg Magnesium Level 2.0 MG/DL 1.7 - 2.8 02/15 NA [facility] Mg Sex assigned at Male 02/15 NA [facility] Phos Phosphorus Level 2.4 MG/DL 2.5 - 4.5 02/15 L [facility] Phos Sex assigned at Male 02/15 NA [facility] Lactic Lactic Acid Level 2.3 MMOL/L 0.5 - 2.2 02/15 H [facility] Lactic Sex assigned at Male 02/15 NA [facility] Lactic Lactic Acid Level 2.8 MMOL/L 0.5 - 2.2 02/14 H [facility] Lactic Sex assigned at Male 02/14 NA [facility] POC G3+ Art ABG - pH 7.441 7.350 - 7.450 02/14 NA Device Code: 60 iSTAT EDFacility: [id number]: 60 ERSerial Number: [id number] r Code: [id number] rator Name: Carroll TerrellTiesha e Lot: [id number] [facility] POC G3+ Art ABG - pO2 71 mmHg 80 - 105 02/14 L [facility] POC G3+ Art ABG - pCO2 33 mmHg 35 - 45 02/14 L [facility] POC G3+ Art ABG - HCO3 22.4 MEQ/L 22.0 - 26.0 02/14 NA [facility] POC G3+ Art ABG - TCO2 23 MEQ/L 23 - 27 02/14 NA [facility] POC G3+ Art ABG - BE -2.0 MEQ/L -2.0 - 3.0 02/14 NA [facility] POC G3+ Art ABG - O2 Sat 95.0 % 95.0 - 99.0 02/14 NA [facility] POC G3+ Art BG - Modified Juan Test PASS 02/14 NA [facility] POC G3+ Art BG - Site RRAD 02/14 NA [facility] POC G3+ Art FIO2 28 % 02/14 NA [facility] POC G3+ Art BG - O2 Device NC 02/14 NA [facility] POC G3+ Art BG - Oxygen Flow 2.0 L/min 02/14 NA [facility] POC G3+ Art BG - Patient Rate 22 br/min 02/14 NA [facility] POC G3+ Art BG - Pulse Oximetry 94 % 02/14 NA [facility] POC G3+ Art Sex assigned at Male 02/14 NA [facility] CRP CRP C-Reactive Protein 12.60 MG/DL 0.00 - 0.90 02/14 H [facility] CRP Sex assigned at Male 02/14 [facility] DDimerQnt D-Dimer, Qnt 0.45 ZZ - [...] 65 0.65mg/L FEU 70 0.70mg/L FEU Etc. [facility] DDimerQnt Sex assigned at Male 02/14 [facility] PCT Procalcitoni n Level 0.47 NG/ML - <=0.50 02/14 NA [facility] PCT Sex assigned at Male 02/14 NA [facility] AutoDiff* Auto Neutrophil Percent 85.8 % 49.4 - 72.6 02/14 H [facility] AutoDiff* Auto Neutrophil Absolute 7.2 K/uL 2.0 - 6.4 02/14 H [facility] AutoDiff* Auto Lymphocyte Percent 3.8 % 18.0 - 40.0 02/14 L [facility] AutoDiff* Auto Lymphocyte Absolute 0.3 K/uL 1.5 - 3.0 02/14 L [facility] AutoDiff* Auto Monocyte Percent 9.4 % 4.9 - 10.1 02/14 NA [facility] AutoDiff* Auto Monocyte Absolute 0.8 K/uL 0.3 - 0.8 02/14 NA [facility] AutoDiff* Auto Eosinophil Percent 0.5 % 0.0 - 5.0 02/14 NA [facility] AutoDiff* Auto Eosinophil Absolute 0.0 K/uL 0.0 - 0.4 02/14 NA [facility] AutoDiff* Auto Basophil Percent 0.5 % 0.2 - 1.2 02/14 NA [facility] AutoDiff* Auto Basophil Absolute 0.0 K/uL 0.0 - 0.1 02/14 NA [facility] AutoDiff* Sex assigned at Male 02/14 NA [facility] CBC WBC 8.4 K/uL 3.7 - 10.5 02/14 NA [facility] CBC RBC 4.24 M/uL 3.81 - 5.87 02/14 NA [facility] CBC HGB 12.6 g/dL 12.0 - 17.9 02/14 [facility] CBC HCT 37.7 % 34.4 - 50.2 02/14 NA [facility] CBC MCV 88.9 fL 80.0 - 99.8 02/14 NA [facility] CBC MCH 29.7 pg 26.7 - 34.0 02/14 NA [facility] CBC MCHC 33.3 g/dL 31.0 - 37.0 02/14 NA [facility] CBC RDW 15.3 % 12.0 - 15.8 02/14 NA [facility] CBC PLT 138 K/uL 139 - 422 02/14 L [facility] CBC MPV 8.60 fL 6.84 - 10.28 02/14 NA [facility] CBC Sex assigned at Male 02/14 NA [facility] CMP Sodium Level 134 MMOL/L 135 - 145 02/14 L [facility] CMP Potassium Level 3.6 MMOL/L 3.5 - 5.0 02/14 NA [facility] CMP Chloride Level 100 MMOL/L 101 - 111 02/14 L [facility] CMP CO2/Carbon Dioxide 25 MMOL/L 24 - 32 02/14 NA [facility] CMP Anion Gap 9.0 5.0 - 15.0 02/14 NA [facility] CMP Glucose, Random 125 MG/DL - <=200 02/14 NA [facility] CMP BUN 19 MG/DL 8 - 20 02/14 NA [facility] CMP Creatinine 1.52 MG/DL 0.60 - 1.30 02/14 H [facility] CMP BUN/Creat Ratio 12.5 12.0 - 20.0 02/14 [facility] CMP Osmolality, Calculated 272 mOsm/L 02/14 [facility] CMP Calcium Level 9.1 MG/DL 8.4 - 10.2 02/14 NA [facility] CMP Total Protein 7.2 g/dL 6.4 - 8.3 02/14 NA [facility] CMP Albumin Level 4.1 g/dL 3.2 - 5.5 02/14 NA [facility] CMP Globulin Level 3.1 g/dL 1.5 - 3.5 02/14 NA [facility] CMP A/G Ratio 1.3 1.1 - 2.2 02/14 NA [facility] CMP ALP 45 IU/L 30 - 115 02/14 NA [facility] CMP ALT 53 IU/L 5 - 36 02/14 H [facility] CMP AST 79 IU/L 10 - 42 02/14 H [facility] CMP Bilirubin, Total 0.8 MG/DL 0.2 - 1.2 02/14 NA [facility] CMP GFR - Non 48 mL/min/1.7 3m2 [...] 18 or greater, not for pediatric patients. [facility] CMP Sex assigned at Male 02/14 NA [facility] CMP GFR - 58 mL/min/1.7 3m2 >=61 02/14 L [facility] Lactic WB Lactic Acid WB 2.17 MMOL/L 0.56 - 1.39 02/14 H [facility] Lactic WB Sex assigned at Male 02/14 NA [facility] Trop Troponin I 0.03 NG/ML 0.00 - [...] infarction and other causes of myocardial damage. [facility] Trop Sex assigned at Male 02/14 NA [facility] C Blood C Blood Final:No growth at 5 days.Sex assigned at :Male 02/14 Performed at: [facility], [address] [place] [id number], Test Technician: Doc Jones M.D. [facility] [id number] SARS-CoV-2 Source Mckay oakley 02/14 NA [facility] [id number] Influenza A Agn Molecular Detected Not Detected [...] determined. Re-collection is recommended if clinically indicated [facility] [id number] Influenza B Agn Molecular Not Detected Not Detected 02/14 NA Assay performed by RT-PCR [facility] [id number] SARS-CoV-2 Molecular Not Detected Not Detected 02/14 NA Assay performed by RT-PCRThis test was performed under U.S. Food and Drug Administratio n (FDA) Emergency use Authorization (EUA). This test has been validated but the [facility] independent review of this validation is pending. [facility] [id number] SARS-CoV-2 First test? No 02/14 NA [facility] [id number] Health Care Worker? No 02/14 NA [facility] [id number] SARS-CoV-2 Is the Patient Hospitalized ? No 02/14 NA [facility] [id number] SARS-CoV-2 Is the Patient in ICU? No 02/14 NA [facility] [id number] Patient From [facility]? No 02/14 NA [facility] [id number] Symptomatic per CDC? Yes 02/14 [facility] [id number] SARS-CoV-2 Is the Patient ? No 02/14 NA [facility] [id number] Sex assigned at Male 02/14 [facility] RSV Molc Respiratory Syncytial Virus Molecular [...] determined. Re-collection is recommended if clinically indicated. [facility] RSV Molc Sex assigned at Male 02/14 [facility] Diagnostic Reports Report Value Date Source Chest 1 Vw Portable INDICATION: Shortnes s of Breath COMPARISON: None. FINDINGS: The lungs are well expanded and clear, and the cardiac silhouette and pulmonary vessels appear normal. There is no pulmonary vascular redistribution, pleural effusion, or pneumothorax seen. Signed by: Sean Beverly MD on 02/14/2022 12:11 PM 02/14/2022 [facility] Consultation Notes Results Value Date Source Hospitalist [...] mL: 2 gm = 50 mL, IVPB, [id number], PRN, Magnesium Replacement, IV SOLN, 02/14/22 12:51:00 [...] 108, kg Documented Medications Documented A/Fish Oil 98151 u oral capsule: 0 Refill(s), Maintenance Aspir 81 oral enteric coated tablet: = 1 Tab, ORAL, DAILY, 0 Refill(s), Maintenance NovoLOG FlexPen: 0 Refill(s), Maintenance Semglee: 70 mg evenings, 0 Refill(s), Maintenance albuterol: 2.5 mg, INH, [id number]-Kuzckdbk, 0 Refill(s), Maintenance atorvastatin 10 mg oral [...] / SWFI 2 gm 50 mL, IVPB, [id number]-Srmcnfqh ondansetron 2 mg/mL, 2 mL Inj 4 mg 2 mL, IV PUSH, Q4H potassium chloride 10 mEq 100 mL, IVPB, As directed Problem list: All Problems Current smoker / [id number] / Confirmed Ineffective breathing pattern / [id number] / Provisional Manage infection control / [id number] / Provisional Physical Examination Vital Signs 02/16/2022 [...] Signed on: 16-Feb-2022 10:32 PST [facility]16/2022 [facility] Patient: ROGER FREDERICK Age: 76 [...] mL: 2 gm = 50 mL, IVPB, [id number], PRN, Magnesium Replacement, IV SOLN, 02/14/22 12:51:00 [...] 108, kg Documented Medications Documented A/Fish Oil 72188 u oral capsule: 0 Refill(s), Maintenance Aspir 81 oral enteric coated tablet: = 1 Tab, ORAL, DAILY, 0 Refill(s), Maintenance NovoLOG FlexPen: 0 Refill(s), Maintenance Semglee: 70 mg evenings, 0 Refill(s), Maintenance albuterol: 2.5 mg, INH, U0N-Csxodwck, 0 Refill(s), Maintenance atorvastatin 10 mg oral [...] / SWFI 2 gm 50 mL, IVPB, [id number]-Xyxxcsaw ondansetron 2 mg/mL, 2 mL Inj 4 mg 2 mL, IV PUSH, Q4H potassium chloride 10 mEq 100 mL, IVPB, As directed Problem list: All Problems Current smoker / [id number] / Confirmed Ineffective breathing pattern / [id number] / Provisional Manage infection control / [id number] / Provisional Physical Examination Vital Signs 02/16/2022 [...] patient's response to treatment DC home soon [id number] Male 02/16/2022 [facility] Critical care medicine [facility] Progress note Patient: ROGER FREDERICK Age: 76 [...] mL: 2 gm = 50 mL, IVPB, [id number], PRN, Magnesium Replacement, IV SOLN, 02/14/22 12:51:00 [...] 108, kg Documented Medications Documented A/Fish Oil 68997 u oral capsule: 0 Refill(s), Maintenance Aspir 81 oral enteric coated tablet: = 1 Tab, ORAL, DAILY, 0 Refill(s), Maintenance NovoLOG FlexPen: 0 Refill(s), Maintenance Semglee: 70 mg evenings, 0 Refill(s), Maintenance albuterol: 2.5 mg, INH, [id number]-Fmkclkhg, 0 Refill(s), Maintenance atorvastatin 10 mg oral [...] mL: 2 gm = 50 mL, IVPB, [id number]-Kmrsykev, PRN, Magnesium Replacement, IV SOLN, 02/14/22 12:51:00 [...] 108, kg Documented Medications Documented A/Fish Oil 85101 u oral capsule: 0 Refill(s), Maintenance Aspir 81 oral enteric coated tablet: = 1 Tab, ORAL, DAILY, 0 Refill(s), Maintenance NovoLOG FlexPen: 0 Refill(s), Maintenance Semglee: 70 mg evenings, 0 Refill(s), Maintenance albuterol: 2.5 mg, INH, D3F-Qurdwltt, 0 Refill(s), Maintenance atorvastatin 10 mg oral [...] Signed on: 15-Feb-2022 18:43 PST 02/16/2022 60 [facility] Critical Care Progress Note Patient: ROGER FREDERICK Age: 76 years Legal Sex: Male : 1945 Author: MD Ortzi Vijay Basic Information Cough chest congestion wheezing [...] mL: 2 gm = 50 mL, IVPB, [id number]-Vuevvxet, PRN, Magnesium Replacement, IV SOLN, 02/14/22 12:51:00 [...] 108, kg Documented Medications Documented A/Fish Oil 62388 u oral capsule: 0 Refill(s), Maintenance Aspir 81 oral enteric coated tablet: = 1 Tab, ORAL, DAILY, 0 Refill(s), Maintenance NovoLOG FlexPen: 0 Refill(s), Maintenance Semglee: 70 mg evenings, 0 Refill(s), Maintenance albuterol: 2.5 mg, INH, Y4K-Qwrwiish, 0 Refill(s), Maintenance atorvastatin 10 mg oral [...] mL: 2 gm = 50 mL, IVPB, G88L-Zugktptf, PRN, Magnesium Replacement, IV SOLN, 02/14/22 12:51:00 [...] 108, kg Documented Medications Documented A/Fish Oil 22756 u oral capsule: 0 Refill(s), Maintenance Aspir 81 oral enteric coated tablet: = 1 Tab, ORAL, DAILY, 0 Refill(s), Maintenance NovoLOG FlexPen: 0 Refill(s), Maintenance Semglee: 70 mg evenings, 0 Refill(s), Maintenance albuterol: 2.5 mg, INH, B6L-Jwyusgww, 0 Refill(s), Maintenance atorvastatin 10 mg oral [...] 1 Cap, ORAL, DAILY, 0 Refill(s), Maintenance. [id number] [facility]: ROGER FREDERICK Age: 76 [...] mL: 2 gm = 50 mL, IVPB, G96N-Zstckjet, PRN, Magnesium Replacement, IV SOLN, 02/14/22 12:51:00 [...] 108, kg Documented Medications Documented A/Fish Oil 24984 u oral capsule: 0 Refill(s), Maintenance Aspir 81 oral enteric coated tablet: = 1 Tab, ORAL, DAILY, 0 Refill(s), Maintenance NovoLOG FlexPen: 0 Refill(s), Maintenance Semglee: 70 mg evenings, 0 Refill(s), Maintenance albuterol: 2.5 mg, INH, F2A-Znlfydwg, 0 Refill(s), Maintenance atorvastatin 10 mg oral [...] / SWFI 2 gm 50 mL, IVPB, A21O-Xguzvqyl ondansetron 2 mg/mL, 2 mL Inj 4 mg 2 mL, IV PUSH, Q4H potassium chloride 10 mEq 100 mL, IVPB, As directed Problem list: All Problems Current smoker / [id number] / Confirmed Manage infection control / [id number] / Provisional Physical Examination Vital Signs 02/15/2022 [...] will depend to patient's response to treatment [id number] Male 02/15/2022 [facility] Consult note Patient: ROGER FREDERICK Age: 76 [...] with fevers and body aches. He is [facility]. Laboratory work-up in the ER with [...] medications: Home Medications (12) Active A/Fish Oil 17855 u oral capsule ?(Documented?02/14/22) acetaminophen 650 mg rectal suppository 650 mg = 1 Supp, PRN, RECTAL, Q4H?(Documented?02/14/22) acetaminophen 650 mg rectal suppository 650 mg = 1 Supp, PRN, RECTAL, Q4H?(Documented?02/14/22) albuterol 2.5 mg, INH, P4W-Kaeaygfa?(Documented?02/14) Aspir 81 oral enteric coated tablet 81 [...] mL: 2 gm = 50 mL, IVPB, [id number]-Mkeqdhfv, PRN, Magnesium Replacement, IV SOLN, 02/14/22 12:51:00 [...] 108, kg Documented Medications Documented A/Fish Oil 13241 u oral capsule: 0 Refill(s), Maintenance Aspir [...] 0 Refill(s), Maintenance albuterol: 2.5 mg, INH, G2M-Bxqbeazz, 0 Refill(s), Maintenance atorvastatin 10 mg oral [...] in SWFI 50 mL) 2 gm IVPB K30B-Wgqzbsbj ondansetron (Zofran) 4 mg IV PUSH Q4H [...] would you like me to No *Is Protestant/Spirituality/Tavia important to you as you cope No [...] Signed on: 15-Feb-2022 18:26 PST 02/15/2022 60 [facility] Consultation Patient: ROGER FREDERICK Age: 76 years Legal Sex: Male : 1945 Author: MD Ortiz Vijay Basic Information Provider information/ cc: Physicians Involved With Care Admitting: MD Main Atefeh Attending: MD Main Atefeh Consulting: MD Otriz Vijay Primary Care: MD RAYNE . Acute hypoxic respiratory failure/influenza A tracheobronchitis/asthma exacerbation Chief Complaint Increasing cough congestion fever shortness of breath History of Present Illness The patient is a 36-year-old male with possible history of asthma/OSAS/DM2/hypertension hyperlipidemia obesity admitted with increasing cough shortness of breath chest congestion for last 4 to 5 days and now with fevers and body aches. He is [facility]. Laboratory work-up in the ER with [...] medications: Home Medications (12) Active A/Fish Oil 68562 u oral capsule (Documented 02/14/22) acetaminophen 650 mg rectal suppository 650 mg = 1 Supp, PRN, RECTAL, Q4H (Documented 02/14/22) acetaminophen 650 mg rectal suppository 650 mg = 1 Supp, PRN, RECTAL, Q4H (Documented 02/14/22) albuterol 2.5 mg, INH, G2T-Jjuzfzxb (Documented 02/14/22) Aspir 81 oral enteric coated [...] mL: 2 gm = 50 mL, IVPB, Q39N-Mhenhjtx, PRN, Magnesium Replacement, IV SOLN, 02/14/22 12:51:00 [...] 108, kg Documented Medications Documented A/Fish Oil 69031 u oral capsule: 0 Refill(s), Maintenance Aspir [...] 0 Refill(s), Maintenance albuterol: 2.5 mg, INH, I5P-Ijmuflaq, 0 Refill(s), Maintenance atorvastatin 10 mg oral [...] in SWFI 50 mL) 2 gm IVPB [id number]-Aplpwbbt ondansetron (Zofran) 4 mg IV PUSH Q4H [...] would you like me to No *Is Protestant/Spirituality/Tavia important to you as you cope No [...] use compliant DVT/PUD prophylaxis Condition prognosis guarded [id number] Male 02/15/2022 [facility] History and Physical Examination Patient: ROGER FREDERICK ? Age: 76 years?Legal Sex: MALE?: 1945 Date of Service 02/14/2022 13:21 PST Chief Complaint Shortness of breath. History of Present Illness 76-year-old male with past medical history significant for hypertension, hyperlipidemia, type 2 diabetes mellitus, asthma, obstructive sleep apnea, gastroesophageal reflux disease presents [facility] emergency department complaint shortness of breath.? Patient details that over the past 3 to 4 days he has been having progressive congestion, dry cough, mild shortness of breath.? Patient details body aches.? Patient also recently developed fevers.? Patient details that his recently had an upper respiratory infection 4 days prior.? Patient is visiting from [place].? Denies any chest pain.? No abdominal pain [...] Bilateral: Upper extremity ( Capillary Refill Time (STOCKROOM HELPER) returns in less than 2 seconds ), Lower extremity ( Capillary Refill Time (STOCKROOM HELPER) returns in less than 2 seconds ). ? Gastrointestinal: ?Soft, Non-tender, Non-distended, Normal bowel sounds, No organomegaly. ? Genitourinary: ?No costovertebral angle tenderness. Lymphatics: ?No lymphadenopathy neck, axilla, groin. ? Musculoskeletal: ?Normal range of motion, Normal strength, No tenderness, No swelling, No deformity, Normal gait. ? Integumentary: ?Warm, [place], Intact, No pallor, No rash. ? Neurologic: [...] 21:00:00 PST enoxaparin (Lovenox), 40 mg, SUBQ, B92H-Diztmjge, Indication = VTE Prophylaxis, INJ, 02/14/22 13:00:00 [...] mL), 2 gm = 50 mL, IVPB, Y86E-Nvmfexce, PRN, Magnesium Replacement, IV SOLN, 02/14/22 12:51:00 [...] PRN Lovenox, 40 mg, 0.4 mL, SUBQ, Y19O-Dyelvqoe magnesium oxide, 400 mg, 1 Tab, ORAL, BID, PRN magnesium sulfate 2 g in SWFI 50 mL, 2 gm, 50 mL, IVPB, M47B-Dqapyxxj, PRN potassium bicarbonate-citric acid, 20 mEq, 1 [...] IV PUSH, Q4H, PRN Home A/Fish Oil 85445 u oral capsule acetaminophen 650 mg rectal suppository, 650 mg, 1 Supp, RECTAL, Q4H, PRN acetaminophen 650 mg rectal suppository, 650 mg, 1 Supp, RECTAL, Q4H, PRN albuterol, 2.5 mg, INH, L4H-Gkqtmhay Aspir 81 oral enteric coated tablet, 81 [...] Signed on: 14-Feb-2022 13:56 PST 02/14/2022 60 [facility] Portable XR Chest AP single view INDICATION: Shortness of Breath COMPARISON: None. FINDINGS: The lungs are well expanded and clear, and the cardiac silhouette and pulmonary vessels appear normal. There is no pulmonary vascular redistribution, pleural effusion, or pneumothorax seen. 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 His been ill for the last 4 [...] Medications: (Selected) Documented Medications Documented A/Fish Oil 66643 u oral capsule: 0 Refill(s), Maintenance Aspir [...] 0 Refill(s), Maintenance albuterol: 2.5 mg, INH, T5H-Exhktxeo, 0 Refill(s), Maintenance atorvastatin 10 mg oral [...] 13:03:45 PST, Stop Dt/Tm 02/14/22 13:03:45 PST Homebirth Midwife Consult: 02/14/22 17:58:35 PST, Reason for consult: Discern alert Intake and Output: 02/14/22 12:54:00 PST, B76X-Toeegmpy, Strict K-Phos Neutral: = 1 Tab, ORAL, [...] PST, Per protocol SCD: 02/14/22 12:54:00 PST, M0P-Vevnciwl, While In Bed; Remove every 8 hours [...] PST, Q4H Weigh Patient: 02/14/22 12:54:00 PST, [id number] Zofran: 4 mg, IV PUSH, Q4H, PRN, [...] mL: 2 gm = 50 mL, IVPB, V48D-Ltswetyu, PRN, Magnesium Replacement, IV SOLN, 02/14/22 12:51:00 [...] 02/14/22 11:56:06 PST, RT, Routine, 02/14/22 11:56:06 /[place] [facility] Glucose Panel: Blood, Collected Y/N, 02/14/22 18:44:24 PST, RT, Routine, 02/14/22 18:44:24 /[place] [facility] Glucose Panel: Blood, Collected Y/N, 02/14/22 21:26:39 PST, RT, Routine, 02/14/22 21:26:39 /[place] [facility] Glucose Panel: Blood, Collected Y/N, 02/15/22 5:51:56 PST, RT, Routine, 02/15/22 5:51:56 [place] Possible Sepsis: 02/14/22 11:38:08 PST, Stop Dt/Tm [...] mg/dL Normal Lactic Acid WB 2.17 mmol/L AR 02/14/2022 11:36 PST Influenza A Agn Molecular Detected Influenza B Agn Molecular Not Detected Patient From [facility]? No SARS-CoV-2 Molecular Not Detected SARS-CoV-2 [...] point I believe requires hospitalization. Hospitalist notified, email marketing specialist, consulted as well. After initial treatments, [...] GERD Plan Condition: Improved, Stable. Disposition: Admit. [id number] Male 02/14/2022 [facility] Discharge Summaries Results Value Date Source Discharge [...] Chito Leone RN, 02/19/2022 11:01:06 Conf # [id number] Sarah DOUGHERTY, 02/19/2022 13:13:00 Dictation ID [id number] Male 02/19/2022 [facility] History and Physicals Results Value Date Source Hospitalist Admission H&P 02/14/2022 [facility] History and Physical Patient: ROGER FREDERICK Age: 76 years Legal Sex: MALE : 1945 Date of Service 02/14/2022 13:21 [facility] Chief Complaint Shortness of breath. History of Present Illness 76-year-old male with past medical history significant for hypertension, hyperlipidemia, type 2 diabetes mellitus, asthma, obstructive sleep apnea, gastroesophageal reflux disease presents [facility] emergency department complaint shortness of breath. Patient details that over the past 3 to 4 days he has been having progressive congestion, dry cough, mild shortness of breath. Patient details body aches. Patient also recently developed fevers. Patient details that his recently had an upper respiratory infection 4 days prior. Patient is visiting from [place]. Denies any chest pain. No abdominal pain [...] Bilateral: Upper extremity ( Capillary Refill Time (STOCKROOM HELPER) returns in less than 2 seconds ), Lower extremity ( Capillary Refill Time (STOCKROOM HELPER) returns in less than 2 seconds ). Gastrointestinal: Soft, Non-tender, Non-distended, Normal bowel sounds, No organomegaly. Genitourinary: No costovertebral angle tenderness. Lymphatics: No lymphadenopathy neck, axilla, groin. Musculoskeletal: Normal range of motion, Normal strength, No tenderness, No swelling, No deformity, Normal gait. Integumentary: Warm, [place], Intact, No pallor, No rash. Neurologic: Alert, [...] 21:00:00 PST enoxaparin (Lovenox), 40 mg, SUBQ, F94F-Xlysxqnd, Indication = VTE Prophylaxis, INJ, 02/14/22 13:00:00 [...] mL), 2 gm = 50 mL, IVPB, B48W-Tqykiuef, PRN, Magnesium Replacement, IV SOLN, 02/14/22 12:51:00 [...] PRN Lovenox, 40 mg, 0.4 mL, SUBQ, V76A-Urqgeums magnesium oxide, 400 mg, 1 Tab, ORAL, BID, PRN magnesium sulfate 2 g in SWFI 50 mL, 2 gm, 50 mL, IVPB, Z26T-Whcivovq, PRN potassium bicarbonate-citric acid, 20 mEq, 1 [...] IV PUSH, Q4H, PRN Home A/Fish Oil 60916 u oral capsule acetaminophen 650 mg rectal suppository, 650 mg, 1 Supp, RECTAL, Q4H, PRN acetaminophen 650 mg rectal suppository, 650 mg, 1 Supp, RECTAL, Q4H, PRN albuterol, 2.5 mg, INH, B5N-Asbawzgx Aspir 81 oral enteric coated tablet, 81 [...] Influenza A. Tamiflu 75 mg twice daily 41512-7 Male 02/14/2022 [facility] Vital Signs Vital Sign Value Date Comments Source Pulse Oximetry 97 % 02/16/2022 60 [facility] Respiratory rate 18 br/min 02/16/2022 60 [facility] Peripheral Pulse Rate 87 bpm 02/16/2022 60 [facility] Pulse Oximetry 97 % 02/16/2022 60 [facility] Oxygen FiO2 21 % 02/16/2022 60 [facility] Respiratory rate 13 br/min 02/16/2022 [facility] [place] Peripheral Pulse Rate 87 bpm 02/16/2022 [facility] O[facility] FiO2 21 % 02/16/2022 60 [facility] Pulse Oximetry 97 % 02/16/2022 [facility] Temperature (F) 98.7 [degF] 02/16/2022 60 [facility] [place] Peripheral Pulse Rate 89 bpm 02/16/2022 60 [facility] Respiratory rate 18 br/min 02/16/2022 60 [facility] [place] Systolic BP 142 mm[Hg] 02/16/2022 60 [facility] Diastolic BP 82 mm[Hg] 02/16/2022 60 [facility] Oxygen FiO2 21 % 02/16/2022 60 [facility] Temperature (F) 98.0 [degF] [facility][Hg] 02/16/2022 60 [facility] Diastolic BP 78 mm[Hg] 02/16/2022 60 [facility] Weight (kg) 108.5 kg 02/16/2022 60 [facility] Temperature (F) 97.4 [degF] 02/16/2022 60 [facility] [place] Systolic BP 153 mm[Hg] 02/16/2022 60 [facility] Diastolic BP 91 mm[Hg] 02/16/2022 60 [facility] Oxygen flow 2 L/min 02/16/2022 60 [facility] Oxygen flow 2 L/min 02/16/2022 60 [facility] Oxygen flow 2 L/min 02/16/2022 60 [facility] Weight (kg) 109.9 kg 02/15/2022 60 [facility] HeightLength (cm) 175.24 cm 02/15/2022 60 [facility] [place] Weight (kg) 108 kg 02/15/2022 60 [facility] Body Mass Index 35.17 kg/m2 02/15/2022 [address] [facility] Dose calculation weight (kg) 108 kg 02/15/2022 [facility] Rate Monitored 94 bpm 02/15/2022 60 [facility] Heart Rate Monitored 88 bpm 02/14/2022 60 [facility] Heart Rate Monitored 100 bpm 02/14/2022 60 [facility] Mean BP 81 mm[Hg] 02/14/2022 [facility] Dose calculation weight (kg) 108 kg 02/14/2022 60 [facility] Encounters Location Location Details Encounter Type Encounter Number Reason For Visit Attending Provider ADM Date DC Date Status Source 60 60 [facility] Inpatient [id number] ACUTE HYPOXEMIC RESPIRATO RY FAILURE, INFLUENZA A Wilfredo Nikjoo 02/14 Active [facility] Procedures Procedure Code Date Perfomer Comments Source ROUTINE VENIPUNCTURE 99205 02/16/2022 60 [facility] ROUTINE VENIPUNCTURE 31602 02/15/2022 60 [facility] ROUTINE VENIPUNCTURE 56419 02/15/2022 60 [facility] ROUTINE VENIPUNCTURE 90860 02/14/2022 60 [facility] WITHDRAWAL OF ARTERIAL BLOOD 28760 02/14/2022 60 [facility] [place] WITHDRAWAL OF ARTERIAL BLOOD 79056 02/14/2022 60 [facility] [place] ROUTINE VENIPUNCTURE 15758 02/14/2022 60 [facility] ROUTINE VENIPUNCTURE 10384 02/14/2022 60 [facility] Plan of Care Plan of Care Date Source Extracted from:Title: Shortn ess of breath Author: MD Denise, Oren Ny Date: 02/14/22 Impression and Plan Diagnosis 1. Acute respiratory failure #2 acute influenza infection #3 hypertension #4 diabetes #5 history of dyslipidemia #6 history of asthma #7 history of GERD Plan Condition: Improved, Stable. Disposition: Admit. 02/16/2022 60 [facility] evans Social History Social History Date Source Social History TypeResponse Smoking Status Is there a smoker in the household? No; *Do you have concerns about tobacco use in household? No; 4 or less cigarettes(less than 1/4 pack)/day in last 30 days; Never; *Are you ready to quit? N/A entered on: 02/14/22 Sex Male [facility] Social History TypeResponse Smoking Status Is there a smoker in the household? No; *Do you have concerns about tobacco use in household? No; 4 or less cigarettes(less than 1/4 pack)/day in last 30 days; Never; *Are you ready to quit? N/A entered on: 02/14/22 Sex Male 60 [facility] evans Social History TypeResponse Smoking Status Is there a smoker in the household? No; *Do you have concerns about tobacco use in household? No; 4 or less cigarettes(less than 1/4 pack)/day in last 30 days; Never; *Are you ready to quit? N/A entered on: 02/14/22 [facility]
--- OUTSIDE RECORDS SUMMARY | 2024-01-12 13:30 | XMS_ITS | Clinical Summary ---
Author Organization [facility] Address [address] [place] [address] Care Team Providers Care Tax Services Manager Name Role Phone Elsewhere, Pcp Primary Care Provider Unavailabl e Source Comments Patient records contain information from all sites at [facility]. For routine questions regarding patient records, call [phone] during business hours, M-F 8:00 AM - 5:00 PM Central Time. Record requests for emergency care only can be directed to [phone] at any time.[facility] Allergies Active Allergy Reactions Criticality Noted Date Comments Cat Hair Standardized Allergenic Extract Other (see comments) 05/25/2021 Dog Dander Cough 10/20/2022 House Dust Shortness of breath (Reselect Reaction) 04/10/2014 Pollen Extracts Other (see comments) 06/15/2021 Medications albuterol 90 mcg/actuation inhaler 2 puffs as needed. Active chlorthalidone (HYGROTON) 25 mg tablet Take 25 mg by mouth daily. Active clobetasoL (TEMOVATE) 0.05 % cream Apply 1 application topically as needed. Active lisinopriL (PRINIVIL,ZESTRIL) 40 mg tablet Take 40 mg by mouth daily. Active omeprazole (PriLOSEC) [address] capsule Take 40 mg by mouth at bedtime. Active multivitamin (MULTIPLE VITAMINS ORAL) Take 1 tablet by mouth daily. Active BD Ultra-Fine Mini Pen Needle 31 gauge x 3/16 needle USE TO INJECT FOUR TIMES DAILY 022 Active atorvastatin (LIPITOR) 20 mg tablet Take 1 tablet (20 mg total) by mouth daily. 90 tablet 3 023 Active carvediloL (COREG) 12.5 mg tablet Take 1 tablet (12.5 mg total) by mouth 2 (two) times a day with meals. 180 tablet 3 023 Active insulin aspart U-100 (NovoLOG FlexPen) 100 unit/mL (3 mL) injection Inject 15 Units under the skin 3 (three) times a day with meals. 15 mL 023 Active Additional Information Patient taking differently: 20 Unitssubcutaneous 3 times daily with meals, Reported on 12/26/2023 insulin glargine-yfgn (SEMGLEE) 100 unit/mL (3 mL) injection Inject 60 Units under the skin at bedtime. 15 mL 023 Active fenofibrate nanocrystallized (TRICOR) 145 mg tablet Take 1 tablet by mouth daily. 023 Active tirzepatide (Mounjaro) 2.5 mg/0.5 mL pen injector injection Inject 0.5 mL (2.5 mg total) under the skin every 7 (seven) days. 2 mL 3 024 Active Additional Information Patient not taking.Reported on 12/26/2023 FreeStyle Stormy 2 [place] use as directed 1 each Active FreeStyle Stormy 2 Sensor kit 1 EACH EVERY 14 DAYS 6 each 3 024 Active tirzepatide (Mounjaro) 5 mg/0.5 mL pen injector injection Inject 0.5 mL (5 mg total) under the skin every 7 (seven) days. 2 mL 11 024 2024 Active mometasone 0.033 %-ipratropium 0.02 %-diphenhydramine 0.033 % nasal sprayIndications:Rh inosinusitis Chronic,Drip Post Nasal Administer 2 sprays into each nostril 2 (two) times a day. Shake very well prior to each use. 84 mL 3 11/20/19 24 1:31 PM CDT 024 Active icosapent ethyL (Vascepa) 1 gram capsule capsule TAKE 2 CAPSULES(2 GRAMS) BY MOUTH TWICE DAILY WITH MEALS 360 capsule [address] Active aspirin [address] tablet Take 81 mg by mouth daily. 015 2023 Disconti nued(The rapy complete d) dulaglutide (Trulicity) 1.5 mg/0.5 mL pen injector injection Inject 0.5 mL (1.5 mg total) under the skin every 7 (seven) days. 2 mL 11 023 2023 Disconti nued(The rapy complete d) FreeStyle Stormy 2 Sensor kit 1 EACH EVERY 14 DAYS 6 each 3 024 2023 Disconti nued(The rapy complete d) flash glucose sensor (FreeStyle Stormy 2 Sensor) kit 1 each (1 kit total) every 14 (fourteen) days. 6 each 3 024 2023 Disconti nued(The rapy complete d) Encounters Date Type Department Care Team Description 12/28/2023 3:00 PM CDT Office Visit Department of Neurologic Surgery in [address] [address] Joan Mcgregor MPAS, P.A.-C. Meningioma Brain (HCC) (Primary Dx) 12/28/2023 9:04 AM CDT - 12/28/2023 11:59 PM CDT Hospital Encounter Department of Radiology, [facility] in [address] [phone] Joan Mcgregor MPAS, P.A.-C. Tumor Cerebral Meninges Benign (HCC) Discharge Disposition: Home or Self Care 12/26/2023 9:00 AM CDT Clinical Communication Virtual Review in [place], [place] [address] [place] [address] Pre-visit Intake 12/25/2023 Clinical Communication Division of Endocrinology in [address] [phone] Sky Mai M.B.B.S., MLida 12/07/2023 Clinical Communication Division of Endocrinology in [place], [place] [address] [place] [address] Sky Mai M.B.B.S., Paul Rx Prior Authorization (VASCEPA); Rx Denial (Vascepa) 12/07/2023 Orders Only Division of Endocrinology in [place], [place] [address] [place] [address] Sky Mai M.B.B.S., M.D. 12/06/2023 Orders Only Division of Endocrinology in [place], [place] [address] [place] [address] Sky Mai M.B.B.S., Paul 11/21/2023 Refill Division of Endocrinology in [place], [place] [address] [place] [address] Sky Mai M.B.B.S., M.D. Med Refill from Last 3 Months Family History Medical [...] Sister Chandni Hess ADD Son 1 Selvin Troy adderol Alcohol abuse Son 1 Selvin Contrerason 14 years landen n and sober Asthma Son 1 Selvin Troy remission Drug abuse Son 1 Selvin Contrerason 14 years clean and sober Hypertension Son 2 Scott Russell medication Sleep apnea Son 2 Scott Russell cpap Relation Name Status Comments Brother Thanh Russell Father Faraz Russell Father's Brother Faheem Russell Mother Laura Russell Mother's Sister Chandni Hess Son 1 Selvin Contrerason Son 2 Scott Russell Social History Tobacco Use Types Packs/Day Years Used Date Smoking Tobacco: Never Passive Smoke Exposure: Never Smokeless Tobacco: Never Tobacco Cessation:Counseling Given: Not Answered Alcohol Use Standard Drinks/Week Comments Yes 2 (1 standard drink = 0.6 oz pur e alcohol) [facility] Utilities Answer Date Recorded In the past 12 months has e electric, gas, oil, or water company threatened to [...] often do you attend chur ch or christianity services? More than 4 times per year 05/12/2022 Do you belong to any clubs o r organizations such as mandaen groups, unions, fraternal or athletic groups, or [...] and heating? Not hard at all 09/28/2022 [facility] of Occupat ional Health - Occupational Stress [...] have a st [place] place to live 12/26/2023 Education Answer Date Recorded What is the highest level of school you have completed or the highest degree you have received? Doctorate 06/16/2021 Sex and Gender Information Value Date Recorded Sex Assigned at Male 06/16/2021 2:26 PM CDT Legal Sex Male 8:15 PM SERVICE ORDER TAKER Gender Identity Male 06/16/2021 2:26 PM CDT Sexual Orientation Straight 06/16/2021 2: 26 PM CDT Last Filed Vital Signs Vital Sign Reading Time Taken Comments Blood Pressure 123/71 01/24/2023 3:03 PM SERVICE ORDER TAKER Pulse 77 01/24/2023 3:03 PM SERVICE ORDER TAKER Temperature 37.4 ??C (99.3 ??F) 12/28/2023 2:46 PM CD T Respiratory Rate - - Oxygen Saturation 98% 06/06/2022 9:25 AM CDT Inhaled Oxygen Concentration - - Weight 104 kg (230 lb 4.3 oz) 12/28/2023 2:46 PM CDT Height 173.6 cm (5' 8.35) 12/28/2023 2:46 PM CD T Body Mass Index 34.66 12/28/2023 2:46 PM CDT Plan of Treatment Upcoming Encounters Date Type Department Care Team (Latest Contact Info) Description 03/08/2024 8:45 AM SERVICE ORDER TAKER Clinical Communication Virtual Review in [place], [place] [address] [place] [address] 03/11/2024 8:00 AM SERVICE ORDER TAKER Appointment Department of Laboratory Medicine and Pathology, [place], [place] [address] [place] [phone] Sky Mai M.B.B.S., MLida [address] [place] [phone] 03/11/2024 8:10 AM SERVICE ORDER TAKER Appointment Department of Laboratory Medicine and Pathology, [place], [place] [address] [place] [phone] Sky Mai M.B.B.S., MLida [address] [place] [phone] 03/11/2024 4:00 PM SERVICE ORDER TAKER Office Visit Division of Endocrinology in [place], [place] [address] [place] [phone] Sky Mai M.B.B.S., MLida [address] [place] [phone] Health Maintenance Due Date Last Done Comments Hepatitis C Screening 1945 Pneumococcal vaccine (65+ years) (3 of 3 - PPSV23 or PCV20) 06/21/2020 06/22/2015, 12/12/2008 Zoster Vaccines (3 of 3) 12/24/2020 10/29/2020, 08/2008 RSV vaccine - (32-36 weeks) or 60+ years (1 - 1-dose 75+ series) 2021 Depression Screening (Annual PHQ-2) 03/13/2023 Fall Risk Screen (Annual) 03/13/2023 Potassium Level 05/20/2023 05/19/2022 Sodium Level 05/20/2023 05/19/2022 Creatinine Level (Kidney Function Test) 10/25/2023 10/24/2022, 05/19/2022 COVID-19 Vaccine ( season) 2023 07/04/2023, 10/13/2022, 12/30/2021, Additional history exists Influenza Vaccine (#1) 2023 , 12/31/2021, 02/17/2021, Additional history exists DTaP,Tdap,and Td Vaccines (3 - Td or Tdap) 06/20/2027 06/19/2017, 08/17/2007, 03/13/1997 IPV Vaccines Aged Out No longer eligi ble based on patient's age to complete this topic Medical Devices Implanted Type Area Route Delivery Supervisor Device Identifier Shelf Expiration Date Model / Serial / Lot Freestyle Stormy 2 Cont Glucose Monitoring (CGM) Arm Description:1.5T or 3T MR Co nditional, Normal Operating mode per manufacture. - Diamond P 12/28/23 Bilateral Knee Implant Knee Implant Bilatera l: Knee Procedures Procedure Name Priority Date/Time Associated Diagnosis Comments MR BRAIN WITHOUT AND WITH IV CONTRAST RAD - Routine (most inpatients and all outpatients) 12/28/2023 10:18 AM CDT Tumor Cerebral Meninges Benign (HCC) CREATININE WITH EGFR, S/P Routine 10/24/2022 8:38 AM CDT Diabetes Mellitus Type 2 (HCC) BASIC METABOLIC PANEL, S/P Routine 05/19/2022 7:07 AM SERVICE ORDER TAKER Atherosclerotic Heart Disease Of [place] Coronary Artery Without Angina Pectoris Fatigue from Last 3 Months or Most Recently Relevant to Health Maintenance Results * MR Brain without and with IV Contrast (12/28/2023 10:18 AM CDT) Anatomical Region Laterality Modality Head, Brain, Neuroradiology RST LOS, Neuroradiology ARZ LOS, Neuroradiology FLA LOS N/A Magnetic Resonance Impressions 12/28/2023 10:56 AM CDT Stable appearance of the parafalcine meningioma. Narrative 12/28/2023 10:56 AM CDT EXAM: MR BRAIN WITHOUT AND WITH IV CONTRAST COMPARISON: MR brain since 10/05/2022. FINDINGS: Stable size and appearance of the parafalcine meningioma measuring 2.5 x 1.3 x 2.3 cm (AP x TR x SI). No new lesion identified. FLAIR hyperintense lesions in the periventricular white matter, likely due to small vessel ischemic changes. No acute infarct or intracranial hemorrhage. Patent intracranial vascular flow voids. Dolichoectasia of the right vertebrobasilar artery. Mucosal thickening in the paranasal sinuses. Bilateral mastoid effusions. Procedure Note Ben Mccray M.D., Ph.D. - 12/28/2023 EXAM: MR BRAIN WITHOUT AND WITH IV CONTRAST COMPARISON: MR brain since 10/05/2022. FINDINGS: Stable size and appearance of the parafalcine meningiomameasuring 2.5 x 1.3 x 2.3 cm (AP x TR x SI). No new lesion identified.FLAIR hyperintense lesions in the periventricular white matter, likely dueto small vessel ischemic changes. No acute infarct or intracranial hemorrhage. Patent intracranial vascularflow voids. Dolichoectasia of the right vertebrobasilar artery. Mucosal thickening in the paranasal sinuses. Bilateral mastoideffusions. IMPRESSION: Stable appearance of the parafalcine meningioma. Joan TORRES, P.A.-C. IMG MRI PROCEDURES Final Result * (ABNORMAL) Creatinine with Estimated GFR (10/24/2022 8:38 AM CDT) Creatinine 1.62(H) 0.74 - 1.35 mg/dL 10/24/2022 10:01 AM CDT DTL Estimated GFR (eGFR) 44(L) >=60 mL/min/BSA 10/24/2022 10:01 AM CDT DTL Comment: Estimated GFR calculated using the 2020 CKD_EPI creatinine equation. Blood (Blood, Venous) 10/24/2022 8:38 AM CDT 10/24/2022 9:08 AM CDT Sky Briggs M.D. LAB BLOOD ADD-ON Fin al Result [facility] [address] [facility] [address] [place] [address] * (ABNORMAL) Basic Metabolic Panel (05/19/2022 7:07 AM SERVICE ORDER TAKER) Potassium, S 4.4 3.6 - 5.2 mmol/L 05/19/2022 8:10 AM SERVICE ORDER TAKER DTL Sodium, S 138 135 - 145 mmol/L 05/19/2022 8:10 AM SERVICE ORDER TAKER DTL Chloride, S 100 98 - 107 mmol/L 05/19/2022 8:10 AM SERVICE ORDER TAKER DTL Bicarbonate, S 24 22 - 29 mmol/L 05/19/2022 8:10 AM SERVICE ORDER TAKER DTL Anion Gap 14 7 - 15 05/19/2022 8:10 AM SERVICE ORDER TAKER DTL BUN (Blood Urea Nitrogen), S 22 8 - 24 mg/dL 05/19/2022 8:10 AM SERVICE ORDER TAKER DTL Creatinine 1.47(H) 0.74 - 1.35 mg/dL 05/19/2022 8:10 AM SERVICE ORDER TAKER DTL Estimated GFR (eGFR) 49(L) >=60 mL/min/BSA 05/19/2022 8:10 AM SERVICE ORDER TAKER DTL Comment: Estimated GFR calculated using the 2020 CKD_EPI creatinine equation. Calcium, Total, S 10.0 8.8 - 10.2 mg/dL 05/19/2022 8:10 AM SERVICE ORDER TAKER DTL Glucose, S 173(H) 70 - 140 mg/dL 05/19/2022 8:10 AM SERVICE ORDER TAKER DTL Blood (Blood, Venous) 05/19/2022 7:07 AM SERVICE ORDER TAKER 05/19/2022 7:44 AM SERVICE ORDER TAKER us Jessica Flores P.A.-C. LAB BLOOD ADD-ON Final Result [facility] [address] [place] [address], [place] [facility] [address] [place] [address] from Last 3 Months or Most Recently Relevant to Health Maintenance Insurance MEDICARE Care Teams Tax Services Manager Relationship Specialty Start Date End Date Elsewhere, Pcp PCP - General Internal Medicine 12/26/23
--- OUTSIDE RECORDS SUMMARY | 2024-01-12 13:30 | XMS_ITS | Referral Summary ---
Author Organization [facility] Address [address] [place] [address] Care Team Providers Care Child Care Supervisor Name Role Phone Elsewhere, Pcp Primary Care Provider Unavailabl e Source Comments Patient records contain information from all sites at [facility]. For routine questions regarding patient records, call [phone] during business hours, M-F 8:00 AM - 5:00 PM Central Time. Record requests for emergency care only can be directed to [phone] at any time.[facility] Encounters Date Type Department Care Team Description 12/28/2023 3:00 PM CDT Office Visit Department of Neurologic Surgery in [place], [place] [address] [place] [phone] Joan Mcgregor MPAS, P.A.-C. Meningioma Brain (HCC) (Primary Dx) 12/28/2023 9:04 AM CDT - 12/28/2023 11:59 PM CDT Hospital Encounter Department of Radiology, [facility] in [place], [place] [address] [place] [phone] Joan Mcgregor MPAS, P.A.-C. Tumor Cerebral Meninges Benign (HCC) Discharge Disposition: Home or Self Care 12/26/2023 9:00 AM CDT Clinical Communication Virtual Review in [place], [place] [address] [place] [address] Pre-visit Intake 12/25/2023 Clinical Communication Division of Endocrinology in [place], [place] [address] [place] [phone] Sky Mai M.B.B.S., M.D. 12/07/2023 Clinical Communication Division of Endocrinology in [place], [place] [address] [place] [address] Sky Mai M.B.B.S., M.D. Rx Prior Authorization (VASCEPA); Rx Denial (Vascepa) 12/07/2023 Orders Only Division of Endocrinology in [place], [place] [address] [place] [address] Sky Mai M.B.B.S., M.D. 12/06/2023 Orders Only Division of Endocrinology in [place], [place] [address] [place] [address] Sky Mai M.B.B.S., M.D. 11/21/2023 Refill Division of Endocrinology in [place], [place] [address] [place] [address] Sky Mai M.B.B.S., M.D. Med Refill from Last 3 Months Allergies Active Allergy [...] tablet Take 1 tablet by mouth daily. Active tirzepatide (Mounjaro) 2.5 mg/0.5 mL pen injector injection Inject 0.5 mL (2.5 mg total) under the skin every 7 (seven) days. 2 mL 3 024 Active Additional Information Patient not taking.Reported on 12/26/2023 FreeStyle Stormy 2 [place] use as directed 1 each 024 Active FreeStyle Stormy 2 Sensor kit 1 [...] TWICE DAILY WITH MEALS 360 capsule 3 024 Active aspirin [address] tablet Take [...] 024 2023 Disconti nued(The rapy complete d) Social History Tobacco Use Types Packs/Day Years Used Date Smoking Tobacco: Never Passive Smoke Exposure: Never Smokeless Tobacco: Never Tobacco Cessation:Counseling Given: Not Answered Alcohol Use Standard Drinks/Week Comments Yes 2 (1 standard drink = 0.6 oz pur e alcohol) [facility] Utilities Answer Date Recorded In the past 12 months has [facility] [employer], gas, oil, or water [employer] threatened to shut off services in your [...] often do you attend chur ch or scientologist services? More than 4 times per year 05/12/2022 Do you belong to any clubs o r organizations such as confucianism groups, unions, fraternal or athletic groups, or [...] and heating? Not hard at all 09/28/2022 [facility] of Occupat ional Health - Occupational Stress [...] your living situation today? I have a [facility] place to live 12/26/2023 Education Answer Date Recorded What is the highest level of school you have completed or the highest degree you have received? Doctorate 06/16/2021 Sex and Gender Information Value Date Recorded Sex Assigned at Male 06/16/2021 2:26 PM CDT Legal Sex Male 8:15 PM PRECISION HONING MACHINE OPERATOR Gender Identity Male 06/16/2021 2:26 PM CDT Sexual Orientation Straight 06/16/2021 2: 26 PM CDT Last Filed Vital Signs Vital Sign Reading Time Taken Comments Blood Pressure 123/71 01/24/2023 3:03 PM PRECISION HONING MACHINE OPERATOR Pulse 77 01/24/2023 3:03 PM PRECISION HONING MACHINE OPERATOR Temperature 37.4 ??C (99.3 ??F) 12/28/2023 2:46 [...] (Latest Contact Info) Description 03/08/2024 8:45 AM PRECISION HONING MACHINE OPERATOR Clinical Communication Virtual Review in [place] [address] [place] [address] 03/11/2024 8:00 AM PRECISION HONING MACHINE OPERATOR Appointment Department of Laboratory Medicine and Pathology, [facility] in [place], [place] [address] [place] [address] Sky Mai M.B.B.S., M.D. [address] [place] [phone] 03/11/2024 8:10 AM PRECISION HONING MACHINE OPERATOR Appointment Department of Laboratory Medicine and Pathology, [facility] in [place], [place] [address] [place] [address] Sky Mai M.B.B.S., M.D. [address] [place] [phone] 03/11/2024 4:00 PM PRECISION HONING MACHINE OPERATOR Office Visit Division of Endocrinology in [place], [place] [address] [place] [address] Sky Mai M.B.B.S., M.D. [address] [place] [phone] Medical Devices Implanted Type Area Entrance Guard Device Identifier Shelf Expiration Date Model / [...] METABOLIC PANEL, S/P Routine 05/19/2022 7:07 AM PRECISION HONING MACHINE OPERATOR Atherosclerotic Heart Disease Of [place] Coronary Artery Without Angina Pectoris Fatigue from [...] of the parafalcine meningioma. Joan TORRES, P.A.-C. IM MRI PROCEDURES Final Result * (ABNORMAL) Creatinine [...] M.D. LAB BLOOD ADD-ON Fin al Result [facility] [address] [place] [address], [facility] [address] [place] [address] * (ABNORMAL) Basic Metabolic Panel (05/19/2022 7:07 AM PRECISION HONING MACHINE OPERATOR) Potassium, S 4.4 3.6 - 5.2 mmol/L 05/19/2022 8:10 AM PRECISION HONING MACHINE OPERATOR DTL Sodium, S 138 135 - 145 mmol/L 05/19/2022 8:10 AM PRECISION HONING MACHINE OPERATOR DTL Chloride, S 100 98 - 107 mmol/L 05/19/2022 8:10 AM PRECISION HONING MACHINE OPERATOR DTL Bicarbonate, S 24 22 - 29 mmol/L 05/19/2022 8:10 AM PRECISION HONING MACHINE OPERATOR DTL Anion Gap 14 7 - 15 05/19/2022 8:10 AM PRECISION HONING MACHINE OPERATOR DTL BUN (Blood Urea Nitrogen), S 22 8 - 24 mg/dL 05/19/2022 8:10 AM PRECISION HONING MACHINE OPERATOR DTL Creatinine 1.47(H) 0.74 - 1.35 mg/dL 05/19/2022 8:10 AM PRECISION HONING MACHINE OPERATOR DTL Estimated GFR (eGFR) 49(L) >=60 mL/min/BSA 05/19/2022 8:10 AM PRECISION HONING MACHINE OPERATOR DTL Comment: Estimated GFR calculated using the 2020 CKD_EPI creatinine equation. Calcium, Total, S 10.0 8.8 - 10.2 mg/dL 05/19/2022 8:10 AM PRECISION HONING MACHINE OPERATOR DTL Glucose, S 173(H) 70 - 140 mg/dL 05/19/2022 8:10 AM PRECISION HONING MACHINE OPERATOR DTL Blood (Blood, Venous) 05/19/2022 7:07 AM PRECISION HONING MACHINE OPERATOR 05/19/2022 7:44 AM PRECISION HONING MACHINE OPERATOR Jessica Flores P.A.-C. LAB BLOOD ADD-ON Final Result [facility] [address] [place] [address], [place] DTL [facility] [address] [place] [address] from Last 3 Months or Most Recently Relevant to Health Maintenance Insurance MEDICARE Care Teams Child Care Supervisor Relationship Specialty Start Date End Date Elsewhere, Pcp PCP - General Internal Medicine 12/26/23
--- OUTSIDE RECORDS SUMMARY | 2024-01-12 13:30 | XMS_ITS | Encounter Summary ---
Author Organization [facility] Address [address] [place] [address] Care Team Providers Care Quarry Extraction Worker Name Role Phone Elsewhere, Pcp Primary Care Provider Unavailabl e Encounter Details Date Type Department Care Team (Late st Contact Info) Description 12/07/2023 Orders Only Division of Endocrinology in [place], [place] [address] [place] [address] Sky Mai M.B.B.S., M.D. [address] [place] [address] Social History Tobacco Use Types Packs/Day Years [...] often do you attend chur ch or denominational services? More than 4 times per year 05/12/2022 Do you belong to any clubs o r organizations such as mu-ism groups, unions, fraternal or athletic groups, or [...] and heating? Not hard at all 09/28/2022 [facility] - Occupational Stress Questionnaire Answer Date [...] your living situation today? I have a [facility] place to live 09/28/2022 Education Answer Date Recorded What is the highest level of school you have completed or the highest degree you have received? Doctorate 06/16/2021 Sex and Gender Information Value Date Recorded Sex Assigned at Male 06/16/2021 2:26 PM CDT Legal Sex Male 8:15 PM LOOM CHANGEOVER OPERATOR Gender Identity Male 06/16/2021 2:26 PM CDT Sexual Orientation Straight 06/16/2021 2: 26 PM CDT documented as of this encounter Plan of Treatment Upcoming Encounters Date Type Department Care Team (Latest Contact Info) Description 03/08/2024 8:45 AM LOOM CHANGEOVER OPERATOR Clinical Communication Virtual Review in [place], [place] 200 [place] [address] 03/11/2024 8:00 AM LOOM CHANGEOVER OPERATOR Appointment Department of Laboratory Medicine and Pathology, [address] [phone] Sky Mai M.B.B.S., Alix. [address] [place] [phone] 03/11/2024 8:10 AM LOOM CHANGEOVER OPERATOR Appointment Department of Laboratory Medicine and Pathology, [facility] in [place], [place] [address] [place] [phone] Sky Mai M.B.B.S., [place] [address] [place] [phone] 03/11/2024 4:00 PM LOOM CHANGEOVER OPERATOR Office Visit Division of Endocrinology in [place], [place] [address] [place] [phone] Sky Mai M.B.B.S., [place] [address] [place] [phone] documented as of this encounter Visit Diagnoses Not on filedocumented in this encounter Care Teams Quarry Extraction Worker Relationship Specialty Start Date End Date Elsewhere, Pcp PCP - General Internal Medicine 05/17/22 12/25/23 documented as of this encounter
--- OUTSIDE RECORDS SUMMARY | 2024-01-12 13:30 | XMS_ITS | Encounter Summary ---
Author Organization [facility] Address [address] [place] [address] Care Team Providers Care Ems Director Name Role Phone Elsewhere, Pcp Primary Care Provider Unavailabl e Reason for Visit * Reason Comments Med Refill Encounter Details Date Type Department Care Team (Late st Contact Info) Description 10/06/2023 Refill Division of Pulmonary Medicine in [place], [place] [address] [place] [phone] Mindy Haskins M.D. [address] [place] [phone] Med Refill Social History Tobacco Use Types [...] How often do you attend chur or faith services? More than 4 times per year 05/12/2022 Do you belong to any clubs o r organizations such as pentecostalism groups, unions, fraternal or athletic groups, or [...] the money to buy more. Never true 07/19/20 23 Within the past 12 months, t [...] your living situation today? I have a [facility] place to live 09/28/2022 Education Answer Date Recorded What is the highest level of school you have completed or the highest degree you have received? Doctorate 06/16/2021 Sex and Gender Information Value Date Recorded Sex Assigned at Male 06/16/2021 2:26 PM CDT Legal Sex Male 8:15 PM DIRECTOR CRAFT CENTER Gender Identity Male 06/16/2021 2:26 PM CDT Sexual Orientation Straight 06/16/2021 2: 26 PM CDT documented as of this encounter Plan of Treatment Upcoming Encounters Date Type Department Care Team (Latest Contact Info) Description 03/08/2024 8:45 AM DIRECTOR CRAFT CENTER Clinical Communication Virtual Review in [place], [place] 200 [place] [address] 03/11/2024 8:00 AM DIRECTOR CRAFT CENTER Appointment Department of Laboratory Medicine and Pathology, [facility] in [place], [place] [address] [place] [phone] Sky Mai M.B.B.S., MAsaf. [address] [place] [phone] 03/11/2024 8:10 AM DIRECTOR CRAFT CENTER Appointment Department of Laboratory Medicine and Pathology, [facility] in [place], [place] [address] [place] [address] Sky Mai M.B.B.S., Paul [address] [place] [phone] 03/11/2024 4:00 PM DIRECTOR CRAFT CENTER Office Visit Division of Endocrinology in [place], [place] [address] [place] [address] Sky Mai M.B.B.S., Paul [address] [place] [phone] documented as of this encounter Visit Diagnoses Diagnosis Rhinosinusitis Chronic- Primary Drip Post Nasal documented in this encounter Care Teams Ems Director Relationship Specialty Start Date End Date Elsewhere, Pcp PCP - General Internal Medicine 05/17/22 12/25/23 documented as of this encounter
--- OUTSIDE RECORDS SUMMARY | 2024-01-12 13:30 | XMS_ITS | Encounter Summary ---
Author Organization [facility] Address [address] [place] [address] Care Team Providers Care Junior Web Designer Name Role Phone Elsewhere, Pcp Primary Care Provider Unavailabl e Reason for Referral * Outpatient (Routine) - Authorized Specialty Diagnoses / Procedures Referred By Contac t Referred To Contact Neurological Surgery Joan Mcgregor MPAS, P.A.-CRosa 200 [place] [address] Phone: tel: fax: [facility] Referral ID Status Reason Start Date Expiration Date V isits Requested Visits Authorized [id number] Authorized 12/28/2023 06/28/2025 1 1 * MRI/CAT/PET Scan (Routine) - Authorized Specialty Diagnoses / Procedures Referred By Contac t Referred To Contact Radiology Diagnoses Meningioma Brain (HCC) Procedures MR Brain without and with IV Contrast Joan Mcgregor MPAS, Katiuska-CRosa 200 [place] [address] Phone: tel: fax: [facility] Referral ID Status Reason Start Date Expiration Date V isits Requested Visits Authorized [id number] Authorized 12/28/2023 12/27/2024 1 1 Reason for Visit * Outpatient (Routine) - Closed Specialty Diagnoses / Procedures Referred By Fern cisneros Referred To Contact Neurological Surgery Joan Mcgregor MPAS, P.A.-C. [address] [place] [address] Phone: tel: fax: [facility] Referral ID Status Reason Start Date Expiration Date Visits Re quested Visits Authorized [id number] Closed 10/05/2022 10/04/2025 1 1 Encounter Details Date Type Department Care Team (Late st Contact Info) Description 12/28/2023 3:00 PM CDT Office Visit Department of Neurologic Surgery in [place], [place] [address] [place] [address] Joan Mcgregor MPAS, P.A.-C. [address] [place] [phone] Meningioma Brain (HCC) (Primary Dx) Social History Tobacco Use Types Packs/Day Years Used Date Smoking Tobacco: Never Passive Smoke Exposure: Never Smokeless Tobacco: Never Alcohol Use Standard Drinks/Week Comments Yes 2 (1 standard drink = 0.6 oz pur e alcohol) [facility] Utilities Answer Date Recorded In the past 12 months has [facility] [employer], gas, oil, or water [employer] threatened to shut off services in your [...] and heating? Not hard at all 09/28/2022 [facility] - Occupational Stress [...] your living situation today? I have a [facility] place to live 12/26/2023 Education Answer Date Recorded What is the highest level of school you have completed or the highest degree you have received? Doctorate 06/16/2021 Sex and Gender Information Value Date Recorded Sex Assigned at Male 06/16/2021 2:26 PM CDT Legal Sex Male 8:15 PM EGG AND SPICE MIXER Gender Identity Male 06/16/2021 2:26 PM CDT Sexual Orientation Straight 06/16/2021 2: 26 PM CDT documented as of this encounter Last Filed Vital Signs Vital Sign Reading Time Taken Comments Blood Pressure - - Pulse - - Temperature 37.4 ??C (99.3 ??F) 12/28/2023 2:46 PM CD T Respiratory Rate - - Oxygen Saturation - - Inhaled Oxygen Concentration - - Weight 104 kg (230 lb 4.3 oz) 12/28/2023 2:46 PM CDT Height 173.6 cm (5' 8.35) 12/28/2023 2:46 PM CD T Body Mass Index 34.66 12/28/2023 2:46 PM CDT documented in this encounter Progress Notes * Joan Mcgregor, MELISSA, P.A.-C. - 12/28/2023 3:00 PM CDT Images from the original note were not included. SUBJECTIVE CHIEF COMPLAINT / REASON FOR VISIT Chavo Russell is a 78 y.o. male who presents for follow-up, meningioma monitoring. 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 He developed tinnitus and dizzinessfor which [...] trying to lose weight and has lost 18# with a goal of 40#. He and his just returned from a trip to [place] and [facility] and are looking forward to traveling further once his retires in March. Denies headaches or other neurologic changes. Past Surgical History: Procedure Laterality Date HERNIA REPAIR JOINT REPLACEMENT SINUS SURGERY TONSILLECTOMY VASECTOMY REVIEW OF SYSTEMS: Cardiovascular: Positive for swelling in the legs or feet, pain in the calf muscles when walking and shortness of breath when lying flat. Neurological: Positive for light-headedness and headaches. Psychiatric/Behavioral: Positive for change in sexual drive (decreased libido), excessive daytime sleepiness/tiredness and loud snoring. The following systems were negative: Constitutional, Skin, [...] and how this would impact surgical resection. He understandsthat if there is any progression, prior to surgical resection he may require a MRV for further evalu ation. Given there is no evidence of progression, would recommend repeat MRI in 1-2 yeard. Mr. Russell is comfortable with this plan and understands he can contact the clinic with any questions or concerns. documented in this encounter Plan of Treatment Upcoming Encounters Date Type Department Care Team (Latest Contact Info) Description 03/08/2024 8:45 AM EGG AND SPICE MIXER Clinical Communication Virtual Review in [place], [place] 200 [place] [address] 03/11/2024 8:00 AM EGG AND SPICE MIXER Appointment Department of Laboratory Medicine and Pathology, [place], [place] [address] [place] [phone] Sky Mai M.B.B.S., M.D. [address] [place] [phone] 03/11/2024 8:10 AM EGG AND SPICE MIXER Appointment Department of Laboratory Medicine and Pathology, [facility] in [place], [place] [address] [place] [phone] Sky Mai M.B.B.S., M.D. [address] [place] [phone] 03/11/2024 4:00 PM EGG AND SPICE MIXER Office Visit Division of Endocrinology in [place], [place] [address] [place] [phone] Sky Mai M.B.B.S., [place] [address] [place] [phone] Scheduled Orders Name Type Priority Associated Diagnoses Orde r Schedule MR Brain without and with IV Contrast Imaging RAD - Routine (most inpatients and all outpatients) Meningioma Brain (HCC) Expected: 06/27/2025, Expires: 12/25/2026 Scheduled Referrals Name Type Priority Associated Diagnoses Order Schedule Neurological Surgery office visit (clinic) Outpatient Referral Routine Expect ed: 06/27/2025, Expires: 12/25/2026 documented as of this encounter Visit Diagnoses Diagnosis Meningioma Brain (HCC)- Primary documented in this encounter Care Teams Junior Web Designer Relationship Specialty Start Date End Date Elsewhere, Pcp PCP - General Internal Medicine 12/26/23 documented as of this encounter
--- OUTSIDE RECORDS SUMMARY | 2024-01-12 13:30 | XMS_ITS | Encounter Summary ---
Author Organization [facility] Address [address] [place] [address] Care Team Providers Care Warehouse Clerk Name Role Phone Elsewhere, Pcp Primary Care Provider Unavailabl e Reason for Referral * MRI/CAT/PET Scan (Routine) - Closed Specialty Diagnoses / Procedures Referred By Contac t Referred To Contact Radiology Diagnoses Tumor Cerebral Meninges Benign (HCC) Procedures MR Brain without and with IV Contrast Joan Mcgregor MPAS, P.A.-CRosa 200 [place] [address] Phone: tel: fax: [facility] Referral ID Status Reason Start Date Expiration Date Visits Re quested Visits Authorized [id number] Closed 10/25/2023 03/12/2024 1 1 Reason for Visit * MRI/CAT/PET Scan (Routine) - Closed Specialty Diagnoses / Procedures Referred By Contac t Referred To Contact Radiology Diagnoses Tumor Cerebral Meninges Benign (HCC) Procedures MR Brain without and with IV Contrast Joan Mcgregor MPAS, P.A.-CRosa 200 [place] [address] Phone: tel: fax: [facility] Referral ID Status Reason Start Date Expiration Date Visits Re quested Visits Authorized [id number] Closed 10/25/2023 03/12/2024 1 1 Encounter Details Date Type Department Care Team (Latest Contact Info) Description 12/28/2023 9:04 AM CDT - 12/28/2023 11:59 PM CDT Hospital Encounter Department of Radiology, [facility] in [place], [place] [address] [place] [address] Joan Mcgregor MPAS, P.A.-C. [address] [place] [address] Tumor Cerebral Meninges Benign (HCC) Discharge Disposition: Home or Self Care Social History Tobacco Use Types Packs/Day Years Used Date Smoking Tobacco: Never Passive Smoke Exposure: Never Smokeless Tobacco: Never Alcohol Use Standard Drinks/Week Comments Yes 2 (1 standard drink = 0.6 oz pur e alcohol) [facility] TISSUELABities Answer Date Recorded In the past 12 months has e [employer], gas, oil, or water [employer] threatened to shut off services in your [...] often do you attend [facility] or rastafarian services? More than 4 times [...] and heating? Not hard at all 09/28/2022 [facility] Occupat ional [facility] - Occupational Stress Questionnaire Answer Date [...] your living situation today? I have a [facility] place to live 12/26/2023 Education Answer Date Recorded What is the highest level of school you have completed or the highest degree you have received? Doctorate 06/16/2021 Sex and Gender Information Value Date Recorded Sex Assigned at Male 06/16/2021 2:26 PM CDT Legal Sex Male 8:15 PM DIRECTOR OF MARKETING [employer] PERFORMANCE ADS Gender Identity Male 06/16/2021 2:26 PM CDT Sexual Orientation Straight 06/16/2021 2: 26 PM CDT documented as of this encounter Medications at Time of Discharge albuterol 90 mcg/actuation inhaler 2 puffs as needed. 1 atorvastatin (LIPITOR) 20 mg tablet Take 1 tablet (20 mg total) by mouth daily. 90 tablet 3 3 BD Ultra-Fine Mini Pen Needle 31 gauge x 3/16 needle USE TO INJECT FOUR TIMES DAILY 2 chlorthalidone (HYGROTON) 25 mg tablet Take 25 mg by mouth daily. 1 clobetasoL (TEMOVATE) 0.05 % cream Apply 1 application topically as needed. 2 fenofibrate nanocrystallized (TRICOR) 145 mg tablet Take 1 tablet by mouth daily. 3 FreeStyle Stormy 2 [place] use as directed 1 each 4 FreeStyle Stormy 2 Sensor kit 1 EACH EVERY 14 DAYS 6 each 3 4 icosapent ethyL (Vascepa) 1 gram capsule capsule TAKE 2 CAPSULES(2 GRAMS) BY MOUTH TWICE DAILY WITH MEALS 360 capsule 3 4 insulin aspart U-100 (NovoLOG FlexPen) 100 unit/mL (3 mL) injection Inject 15 Units under the skin 3 (three) times a day with meals. 15 mL 3 insulin glargine-yfgn (SEMGLEE) 100 unit/mL (3 mL) injection Inject 60 Units under the skin at bedtime. 15 mL 3 lisinopriL (PRINIVIL,ZESTRIL) 40 mg tablet Take 40 mg by mouth daily. 5 mometasone 0.033 %-ipratropium 0.02 %-diphenhydramine 0.033 % nasal sprayIndications:Rhin osinusitis Chronic,Drip Post Nasal Administer 2 sprays into each nostril 2 (two) times a day. Shake very well prior to each use. 84 mL 3 11/20/2023 1:31 PM CDT 4 multivitamin (MULTIPLE VITAMINS ORAL) Take 1 tablet by mouth daily. omeprazole (PriLOSEC) [address] capsule Take 40 mg by mouth at bedtime. 5 tirzepatide (Mounjaro) 2.5 mg/0.5 mL pen injector injection Inject 0.5 mL (2.5 mg total) under the skin every 7 (seven) days. 2 mL 3 4 tirzepatide (Mounjaro) 5 mg/0.5 mL pen injector injection Inject 0.5 mL (5 mg total) under the skin every 7 (seven) days. 2 mL 11 4 05/24/19 25 documented as of this encounter Plan of Treatment Upcoming Encounters Date Type Department Care Team (Latest Contact Info) Description 03/08/2024 8:45 AM DIRECTOR OF MARKETING [employer] PERFORMANCE ADS Clinical Communication Virtual Review in [place], [place] 200 [place] [address] 03/11/2024 8:00 AM DIRECTOR OF MARKETING [employer] PERFORMANCE ADS Appointment Department of Laboratory Medicine and Pathology, [place], [place] [address] [place] [phone] Sky Mai M.B.B.S., MAsaf. [address] [place] [phone] 03/11/2024 8:10 AM DIRECTOR OF MARKETING [employer] PERFORMANCE ADS Appointment Department of Laboratory Medicine and Pathology, [place], [place] [address] [place] [phone] Sky Mai M.B.B.S., M.D. [address] [place] [address] 03/11/2024 4:00 PM DIRECTOR OF MARKETING [employer] PERFORMANCE ADS Office Visit Division of Endocrinology in [place], [place] [address] [place] [address] Sky Mai M.B.B.S., M.D. [address] [place] [address] documented as of this encounter Procedures Procedure [...] TORRES, P.A.-C. IMG MRI PROCEDURES Final Result documented in this encounter Visit Diagnoses Diagnosis Tumor Cerebral Meninges Benign (HCC) documented in this encounter Administered Medications Inactive Administered Medications - up to 3 most recent administrations Medication Order MAR Action Action Date Dose Rate Site gadobutrol injection 0.01-30 mL (Gadavist) 0.01-30 mL, intravenous, Once in imaging, contrast, Starting on Nancy 12/28/23 at 0910, For 1 dose, Imaging Protocol Orders, Dose per Radiant Medication Guidelines Intrathecal doses greater than 0.25 mL not recommended. Given 12/28/2023 10:16 AM CDT 10 mL documented in this encounter Care Teams Warehouse Clerk Relationship Specialty Start Date End Date Elsewhere, Pcp PCP - General Internal Medicine 12/26/23 documented as of this encounter
--- OUTSIDE RECORDS SUMMARY | 2024-01-12 13:30 | XMS_ITS | Encounter Summary ---
Author Organization [facility] Address [address] [place] [address] Care Team Providers Care Spray Maker Name Role Phone Elsewhere, Pcp Primary Care Provider Unavailabl e Encounter Details Date Type Department Care Team (Late st Contact Info) Description 12/06/2023 Orders Only Division of Endocrinology in [place], [place] [address] [place] [address] Sky Mai M.B.B.S., M.D. [address] [place] [address] Social History Tobacco Use Types Packs/Day Years [...] often do you attend chur ch or congregational services? More than 4 times per year 05/12/2022 Do you belong to any clubs o r organizations such as christianity groups, unions, fraternal or athletic groups, or [...] hard at all 09/28/2022 [facility] - Occupational Stress Questionnaire Answer [...] PM CDT Legal Sex Male 8:15 PM PIER MASTER Gender Identity Male 06/16/2021 2:26 PM CDT Sexual Orientation Straight 06/16/2021 2: 26 PM CDT documented as of this encounter Plan of Treatment Upcoming Encounters Date Type Department Care Team (Latest Contact Info) Description 03/08/2024 8:45 AM PIER MASTER Clinical Communication Virtual Review in [place], [place] 200 [place] [address] 03/11/2024 8:00 AM PIER MASTER Appointment Department of Laboratory Medicine and Pathology, [address] [phone] Sky Mai M.B.B.S., Alix. [address] [place] [phone] 03/11/2024 8:10 AM PIER MASTER Appointment Department of Laboratory Medicine and Pathology, [facility] in [place], [place] [address] [place] [phone] Sky Mai M.B.B.S., [place] [address] [place] [phone] 03/11/2024 4:00 PM PIER MASTER Office Visit Division of Endocrinology in [place], [place] [address] [place] [phone] Sky Mai M.B.B.S., [place] [address] [place] [phone] documented as of this encounter Visit Diagnoses Not on filedocumented in this encounter Care Teams Spray Maker Relationship Specialty Start Date End Date Elsewhere, Pcp PCP - General Internal Medicine 05/17/22 12/25/23 documented as of this encounter
--- OUTSIDE RECORDS SUMMARY | 2024-01-12 13:30 | XMS_ITS | Encounter Summary ---
Author Organization [facility] Address [address] [place] [address] Care Team Providers Care Skate Boarder Name Role Phone Elsewhere, Pcp Primary Care Provider Unavailabl e Reason for Visit * Reason Onset Date Comments Pre-visit Intake 12/26/2023 Encounter Details Date Type Department Care Team (Latest Contact Info) Description 12/26/2023 9:00 AM CDT Clinical Communication Virtual Review in [place], [place] 200 [place] [address] Pre-visit Intake Social History Tobacco Use Types Packs/Day Years Used Date Smoking Tobacco: Never Passive Smoke Exposure: Never Smokeless Tobacco: Never Alcohol Use Standard Drinks/Week Comments Yes 2 (1 standard drink = 0.6 oz pur e alcohol) [facility] Utilities Answer Date Recorded In the past 12 months has [facility] [employer], gas, oil, or water [employer] threatened to shut off services in your [...] How often do you attend chur or restoration services? More than 4 times [...] and heating? Not hard at all 09/28/2022 [facility] - Occupational Stress Questionnaire Answer [...] your living situation today? [facility] 12/26/2023 Education Answer Date Recorded What is the highest level of school you have completed or the highest degree you have received? Doctorate 06/16/2021 Sex and Gender Information Value Date Recorded Sex Assigned at Male 06/16/2021 2:26 PM CDT Legal Sex Male 8:15 PM TUNNEL DRIER OPERATOR Gender Identity Male 06/16/2021 2:26 PM CDT Sexual Orientation Straight 06/16/2021 2: 26 PM CDT documented as of this encounter Plan of Treatment Upcoming Encounters Date Type Department Care Team (Latest Contact Info) Description 03/08/2024 8:45 AM TUNNEL DRIER OPERATOR Clinical Communication Virtual Review in [place], [place] 200 [place] [address] 03/11/2024 8:00 AM TUNNEL DRIER OPERATOR Appointment Department of Laboratory Medicine and Pathology, [place], [place] [address] [place] [phone] Sky Mai M.B.B.S., MAsaf. [address] [place] [phone] 03/11/2024 8:10 AM TUNNEL DRIER OPERATOR Appointment Department of Laboratory Medicine and Pathology, [facility] in [place], [place] [address] [place] [address] Sky Mai M.B.B.S., [place] [address] [place] [phone] 03/11/2024 4:00 PM TUNNEL DRIER OPERATOR Office Visit Division of Endocrinology in [place], [place] [address] [place] [address] Sky Mai M.B.B.S., [place] [address] [place] [phone] documented as of this encounter Visit Diagnoses Not on filedocumented in this encounter Care Teams Skate Boarder Relationship Specialty Start Date End Date Elsewhere, Pcp PCP - General Internal Medicine 12/26/23 documented as of this encounter
--- OUTSIDE RECORDS SUMMARY | 2024-01-12 13:31 | XMS_ITS | Clinical Summary ---
Author Organization [facility] Address [place], [place] [address] Care Team Providers Care Scale Expert Name Role Phone Tulio Ortiz MD Primary Care Provider [phone] Allergies Active Allergy Reactions Criticality Noted Date [...] per actuation) nasal solution (FLONASE) Inhale 1 [place] into both nostrils once daily. 1 Bottle [...] Comments Blood Pressure 131/82 01/25/2017 2:30 PM RESIDENTIAL LIFE DIRECTOR Pulse 87 01/25/2017 2:30 PM RESIDENTIAL LIFE DIRECTOR Temperature - - Respiratory Rate - - Oxygen Saturation 97% 01/25/2017 2:30 PM RESIDENTIAL LIFE DIRECTOR Inhaled Oxygen Concentration - - Weight - [...] 65+ (1 of 1 - PCV) 012 RSV vaccine for adults or pr egnancy (1 - 1-dose 75+ series) 2021 COVID-19 vaccine series (2 - season) 4 01/08/2021 Influenza for age 65+ 11/12/2023 Care Teams Scale Expert Relationship Specialty Start Date End Date Tulio Ortiz MD [address] [place] [phone] PCP - General Family Practice 06/28/21
== END 2024-01-12 07:55 | disposition home or self-care (01) ==
LOC: NFLDREF 13:27
PROVIDERS: PCP Family Medicine; Referring Provider Family Medicine; Visit Provider Family Medicine
DX: Z00.00 Encounter for general adult medical examination without abnormal findings (principal); E11.9 Type 2 diabetes mellitus without complications; E78.5 Hyperlipidemia, unspecified; I10 Essential (primary) hypertension; L40.9 Psoriasis, unspecified; Z79.4 Long term (current) use of insulin
CPT/HCPCS: 80053; 80061; 82043; 82570

== ENCOUNTER 2025-01-17 08:51 | Outpatient (CLI) | payer MEDICARE, OTHER, SELFPAY | END 2025-01-17 08:52 | disposition home or self-care (01) | LOC: NFLDREF 01-20 23:30 | PROVIDERS: PCP Family Medicine; Referring Provider Family Medicine; Visit Provider Family Medicine | DX: E11.9 Type 2 diabetes mellitus without complications (principal); Z12.5 Encounter for screening for malignant neoplasm of prostate | CPT/HCPCS: 80053; 80061; 82043; 82570; G0103 ==